=== PATIENT | male | born 1955 | race Caucasian/White ===

== ENCOUNTER 2016-10-17 22:08 | Emergency (ER) | payer MEDICARE, MEDICAID ==
[~2016-10-17] VITALS: Ht 180.3 cm; Wt 76.8 kg
[~2016-10-17 22:08] MED LIST: ACHD5005 PO; ALBU8.5H2 IH; CIPR-225 PO; CYCL10TA9 PO; DICL75TA2; DICL75TA2 PO; DIVA500T7 PO; GABA-488; GABA-488 PO; GBPN300C PO; HYDR-700; HYDR-757 PO; IBP800T PO; METH4TAB PO; METO-270 PO; METO25TA PO; NAPR500T PO; NITR-65 PO; PRD10T PO; PRD20T PO; RT-ALBUINH; TRAM-21 PO; TRAM-42 PO; TRAM50TA2 PO; TRAZ100T92 PO; TRIH2TAB2 PO; TRZ100T PO; TRZ50T PO; antidepressant; blood pressure med
[2016-10-18] MEDS ORDERED: TRAM-42 PO (00:43)
--- NOTE | 2016-10-18 00:44 | ED Back Pain ---
General Chief Complaint: Back Problems Stated Complaint: BACK PAIN Nursing Triage Note: Patient here with c/o back pain, chronic hx of herniated L1-2-3. Pt has no PCP Nursing Sepsis Screen: No Definite Risk Source of Information: Patient, Old Records Exam Limitations: No Limitations History of Present Illness Time Seen by Provider: 00:29 Initial Comments This 61-year-old man presents to the emergency room with complaints of exacerbation of chronic upper back pain. He reports he has no primary care provider to address his pain. However, his prescription filling record suggests otherwise. He then states he went to [facility], his primary clinic, but the urgent care clinic there refused to see him. He denies any recent injury related to his exacerbation of pain. Allergies and Home Medications Allergies Coded Allergies: Sulfa (Sulfonamide Antibiotics) (Verified Allergy, Unknown, 11/14/15) PT STATES "I JUST CAN'T HAVE IT" Home Medications Tramadol HCl 50 Mg Tablet #10 50 MG PO Q6H PRN PRN PAIN Prescribed by: REJI CANTRELL on 10/18/16 0043 Constitutional: no symptoms reported EENTM: no symptoms reported Respiratory: no symptoms reported Cardiovascular: no symptoms reported Gastrointestinal: no symptoms reported Genitourinary: no symptoms reported Musculoskeletal: see HPI Skin: no symptoms reported Psychiatric/Neurological: No Symptoms Reported Past Abnovsx-Xthgcc-Bkaeer Hx Patient Social History Alcohol Use: Denies Use Recreational Drug Use: No Smoking Status: Current Everyday Smoker Type Used: Cigarettes Former Smoker/When Quit: Recent Foreign Travel: No Contact w/Someone Who Travel: No Recent Infectious Disease Expo: No Recent Hopitalizations: No Immunizations Up To Date Tetanus Booster (TDap): Unknown Date of Pneumonia Vaccine: Nov 16, 2012 Date of Influenza Vaccine: Oct 14, 2016 Seasonal Allergies Seasonal Allergies: No Surgeries HX Surgeries: Yes Surgeries: Appendectomy Respiratory Hx Respiratory Disorders: Yes (COPD) Respiratory Disorders: COPD Cardiovascular Hx Cardiac Disorders: Yes Cardiac Disorders: Hypertension Neurological Hx Neurological Disorders: No Reproductive System Hx Reproductive Disorders: No Genitourinary Hx Genitourinary Disorders: No Gastrointestinal Hx Gastrointestinal Disorders: Yes (HEP C) Gastrointestinal Disorders: Hepatitis Musculoskeletal Hx Musculoskeletal Disorders: Yes Musculoskeletal Disorders: Arthritis, Chronic Back Pain Endocrine Hx Endocrine Disorders: No HEENT HX ENT Disorders: No Cancer Hx Cancer: No Psychosocial Hx Psychiatric Problems: No Integumentary HX Skin/Integumentary Disorder: No Blood Transfusions Hx Blood Disorders: No Adverse Reaction to a Blood Tr: No Family Medical History Family Medial History: Patient reports no known family medical history. 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 Depo- Medrol 40 mg was administered. This apparently has been successful for him in the past. Departure Impression Impression: Primary Impression: Exacerbation of chronic back pain Disposition: 01 HOME, SELF-CARE Condition: Improved Departure-Patient Inst. Decision time for Depature: 00:41 Referrals: NO,LOCAL PHYSICIAN (PCP/Family) Primary Care Physician Patient Instructions: Upper Back Pain (DC) Add. Discharge Instructions: Continue using diclofenac as previously prescribed. Use Ultram for pain unrelieved by diclofenac. Follow-up with your primary care provider soon as possible. Please do not return to the emergency room for treatment of your chronic pain. This needs to be managed by your primary care provider. All discharge instructions reviewed with patient and/or family. Voiced understanding. Scripts Tramadol HCl (Ultram)50 Mg Obneho32 Mg PO Q6H PRN PAIN #10 TAB Prov:REJI BOND MD 10/18/16 REJI BOND MD Oct 18, 2016 00:43
[2016-10-18] MEDS ORDERED: methylPREDNISolone 40 MG/ML (DEPO MEDROL) VIAL IM ONE (00:45)
[2016-10-18 00:48] VITALS: BP 134/64
== END 2016-10-18 00:49 | disposition home or self-care (01) ==
LOC: EDUNIT# 22:08 → ER 22:09
DX: M54.5 Low back pain (principal); G89.29 Other chronic pain; I10 Essential (primary) hypertension; J44.9 Chronic obstructive pulmonary disease, unspecified; F17.210 Nicotine dependence, cigarettes, uncomplicated
CPT/HCPCS: 96372; 99281

== ENCOUNTER 2017-06-19 11:12 | Emergency (ER) | payer MEDICARE, MEDICAID ==
[~2017-06-19] VITALS: Ht 172.7 cm; Wt 68.0 kg
[~2017-06-19 11:12] MED LIST changes: +CEPH500T PO
--- NOTE | 2017-06-19 11:54 | ED General ---
General Stated Complaint: LT RIB PAIN Source of Information: Patient Exam Limitations: No Limitations History of Present Illness Time Seen by Provider: 11:52 Initial Comments To ER with reports of left upper abdominal pain. It is unclear how long this has been going on as the patient is a terrible historian. He denies nausea vomiting or diarrhea. He reports that he would like a blanket currently and is found to have a temperature of 100 here. He is homeless. Timing/Duration: Other (uncertain) Severity: Moderate Associated Systoms: Fever/Chills Allergies and Home Medications Allergies Coded Allergies: Sulfa (Sulfonamide Antibiotics) (Verified Allergy, Unknown, 11/14/15) PT STATES "I JUST CAN'T HAVE IT" Constitutional: see HPI EENTM: see HPI Respiratory: no symptoms reported Cardiovascular: no symptoms reported Gastrointestinal: abdominal pain Genitourinary: no symptoms reported Musculoskeletal: no symptoms reported Skin: no symptoms reported Psychiatric/Neurological: No Symptoms Reported Past Xrdxnur-Tsgmbn-Mrpnvf Hx Patient Social History Type Used: Cigarettes Former Smoker, Quit: Feb 25, 2017 Recent Foreign Travel: No Contact w/Someone Who Travel: No Recent Hopitalizations: No Immunizations Up To Date Tetanus Booster (TDap): Unknown Date of Pneumonia Vaccine: Nov 16, 2012 Date of Influenza Vaccine: Oct 14, 2016 Seasonal Allergies Seasonal Allergies: No Surgeries History of Surgeries: Yes Surgeries: Appendectomy Respiratory History of Respiratory Disorde: Yes Respiratory Disorders: COPD Currently Using CPAP: No Currently Using BIPAP: No Cardiovascular History of Cardiac Disorders: No Cardiac Disorders: Hypertension Neurological History of Neurological Disord: No Reproductive System Hx Reproductive Disorders: No Genitourinary History of Genitourinary Disor: No (current uti) Gastrointestinal History of Gastrointestinal Di: No Gastrointestinal Disorders: Hepatitis Musculoskeletal History of Musculoskeletal Dis: No Musculoskeletal Disorders: Arthritis, Chronic Back Pain Endocrine History of Endocrine Disorders: No HEENT History of HEENT Disorders: No Cancer History of Cancer: No Psychosocial History of Psychiatric Problem: No Integumentary History of Skin or Integumenta: Yes (ulcer present to lle) Blood Transfusions History of Blood Disorders: No Adverse Reaction to a Blood Tr: No Family Medical History Family Medial History: Patient reports no known family medical history. Physical Exam Vital Signs Vital Sign - Last 12Hours 06/19/17 11:38 Temp 100.0 Pulse 150 B/P (MAP) 136/116 Capillary Refill : General Appearance: No Apparent Distress, WD/WN, Thin Eyes: Bilateral Eye Normal Inspection, Bilateral Eye PERRL, Bilateral Eye EOMI HEENT: PERRL/EOMI, TMs Normal Neck: Full Range of Motion, Normal Inspection Respiratory: No Accessory Muscle Use, No Respiratory Distress Cardiovascular: Regular Rate, Rhythm, Normal Peripheral Pulses Gastrointestinal: Non Tender, Soft Extremity: Normal Capillary Refill, No Calf Tenderness Neurologic/Psychiatric: Alert, Oriented x3, No Motor/Sensory Deficits Skin: Normal Color, Warm/Dry Focused Exam Evaluation Lactate Level Laboratory Tests 06/19/17 12:18: Lactic Acid Level 2.41*H Lactic Acid Level Laboratory Tests Test 06/19/17 12:18 Lactic Acid Level 2.41 MMOL/L (0.50-2.00) *H Progress/Results/Core Measures Results/Orders Lab Results Laboratory Tests Test 06/19/17 11:46 06/19/17 12:18 06/19/17 13:30 Range/Units White Blood Count 7.7 4.3-11.0 10^3/uL Red Blood Count 4.31 L 4.35-5.85 10^6/uL Hemoglobin 13.1 L 13.3-17.7 G/DL Hematocrit 44 40-54 % Mean Corpuscular Volume 89 80-99 FL Mean Corpuscular Hemoglobin 30 25-34 PG Mean Corpuscular Hemoglobin Concent 34 32-36 G/DL Red Cell Distribution Width 13.9 10.0-14.5 % Platelet Count 213 130-400 10^3/uL Mean Platelet Volume 10.3 7.4-10.4 FL Neutrophils (%) (Auto) 90 H 42-75 % Lymphocytes (%) (Auto) 7 L 12-44 % Monocytes (%) (Auto) 3 0-12 % Eosinophils (%) (Auto) 0 0-10 % Basophils (%) (Auto) 0 0-10 % Neutrophils # (Auto) 11.9 H 1.8-7.8 X 10^3 Lymphocytes # (Auto) 0.9 L 1.0-4.0 X 10^3 Monocytes # (Auto) 0.3 0.0-1.0 X 10^3 Eosinophils # (Auto) 0.0 0.0-0.3 10^3/uL Basophils # (Auto) 0.0 0.0-0.1 10^3/uL Neutrophils % (Manual) 83 % Lymphocytes % (Manual) 11 % Monocytes % (Manual) 4 % Eosinophils % (Manual) 0 % Basophils % (Manual) 0 % Band Neutrophils 2 % Blood Morphology Comment NORMAL Erythrocyte Sedimentation Rate 71 H 0-30 MM/HR Sodium Level 124 *L 135-145 MMOL/L Potassium Level 3.9 3.6-5.0 MMOL/L Chloride Level 93 L 98-107 MMOL/L Carbon Dioxide Level 17 L 21-32 MMOL/L Anion Gap 14 5-14 MMOL/L Blood Urea Nitrogen 26 H 7-18 MG/DL Creatinine 1.50 H 0.60-1.30 MG/DL Estimat Glomerular Filtration Rate 48 BUN/Creatinine Ratio 17 Glucose Level 99 70-105 MG/DL Lactic Acid Level 2.41 *H 0.50-2.00 MMOL/L Calcium Level 9.2 8.5-10.1 MG/DL Total Bilirubin 1.4 H 0.1-1.0 MG/DL Aspartate Amino Transf (AST/SGOT) 18 5-34 U/L Alanine Aminotransferase (ALT/SGPT) 18 0-55 U/L Alkaline Phosphatase 76 40-136 U/L Total Protein 7.7 6.4-8.2 GM/DL Albumin 3.2 3.2-4.5 GM/DL Serum Alcohol < 10 <10 MG/DL Urine Color YELLOW Urine Clarity SLIGHTLY CLOUDY Urine pH 6 5-9 Urine Specific Ralph 1.015 L 1.016-1.022 Urine Protein 3+ H NEGATIVE Urine Glucose (UA) NEGATIVE NEGATIVE Urine Ketones 2+ H NEGATIVE Urine Nitrite POSITIVE H NEGATIVE Urine Bilirubin NEGATIVE NEGATIVE Urine Urobilinogen 4 H NORMAL MG/DL Urine Leukocyte Esterase 3+ H NEGATIVE Urine RBC (Auto) 5+ H NEGATIVE Urine RBC 5-10 H /HPF Urine WBC 25-50 H /HPF Urine Squamous Epithelial Cells 2-5 /HPF Urine Crystals NONE /LPF Urine Amorphous Sediment MOD VEENA URATES H /LPF Urine Bacteria LARGE H /HPF Urine Casts PRESENT /LPF Urine Granular Casts 2-5 H /LPF Urine Mucus NEGATIVE /LPF Urine Culture Indicated YES Urine Opiates Screen NEGATIVE NEGATIVE Urine Oxycodone Screen NEGATIVE NEGATIVE Urine Methadone Screen NEGATIVE NEGATIVE Urine Propoxyphene Screen NEGATIVE NEGATIVE Urine Barbiturates Screen NEGATIVE NEGATIVE Ur Tricyclic Antidepressants Screen NEGATIVE NEGATIVE Urine Phencyclidine Screen NEGATIVE NEGATIVE Urine Amphetamines Screen POSITIVE H NEGATIVE Urine Methamphetamines Screen POSITIVE H NEGATIVE Urine Benzodiazepines Screen NEGATIVE NEGATIVE Urine Cocaine Screen NEGATIVE NEGATIVE Urine Cannabinoids Screen NEGATIVE NEGATIVE My Orders Orders - ILEANA OSBORNE APRN Cbc With Automated Diff (06/19/17 11:49) Erythrocyte Sedimentation Rate (06/19/17 11:49) Saline Lock/Iv-Start (06/19/17 11:49) Ua Culture If Indicated (06/19/17 11:49) Drug Screen Stat (Urine) (06/19/17 11:49) Blood Culture (06/19/17 11:49) Lactic Acid Analyzer (06/19/17 11:49) Lactated Ringers (Lr 1000 Ml Iv Solution (06/19/17 12:00) Lorazepam Injection (Ativan Injection) (06/19/17 12:00) Acetaminophen Tablet (Tylenol Tablet) (06/19/17 12:00) Ibuprofen Tablet (Motrin Tablet) (06/19/17 12:00) Chest Pa/Lat (2 View) (06/19/17 11:50) Manual Differential (06/19/17 11:46) Alcohol (06/19/17 12:19) Comprehensive Metabolic Panel (06/19/17 12:19) Ct Abdomen/Pelvis Wo (06/19/17 12:27) Ns Iv 1000 Ml (Sodium Chloride 0.9%) (06/19/17 13:15) Ceftriaxone Injection (Rocephin Injectio (06/19/17 13:15) Abdomen/Kub 1view (06/19/17 13:23) Urine Culture (06/19/17 13:30) Normal Saline Bolus 1,000ml (06/19/17 14:30) Medications Given in ED Current Medications Medications Dose Ordered Sig/Mery Route Start Time Stop Time Status Last Admin Dose Admin Acetaminophen 1,000 mg ONCE ONCE PO 06/19/17 12:00 06/19/17 12:01 DC 06/19/17 12:08 1,000 MG Ceftriaxone Sodium 1000 mg/ Sodium Chloride 50 ml @ 100 mls/hr ONCE ONCE IV 06/19/17 13:15 06/19/17 13:44 DC 06/19/17 13:20 100 MLS/HR Ibuprofen 800 mg ONCE ONCE PO 06/19/17 12:00 06/19/17 12:01 DC 06/19/17 12:08 800 MG Lorazepam 0.5 mg ONCE ONCE IVP 06/19/17 12:00 06/19/17 12:01 DC 06/19/17 12:09 0.5 MG Vital Signs/I&O Vital Sign - Last 12Hours 06/19/17 11:38 Temp 100.0 Pulse 150 B/P (MAP) 136/116 Intake and Output 06/20/17 00:00 Intake Total 1250 ml Balance 1250 ml Departure Communication (Admissions) Progress Notes 1237-patient has refused to take one of his Tylenol and Motrin for the fever because "they're bitter". Patient then ripped out his IV so that he could walk to the bathroom and left a trail of blood down the hallway and all over himself. Laying in bed states that he is feeling better now 1303-in regards to the metallic density within the GI tract on CT, the patient reports that he was sucking on some pennies last week and accidentally swallowed them. 1409-Discussed wit Dr morrison. He states that since sepsis is likely secondary to uti with stone, the stone will need intervened on urgently and he would like this patient transferred... 1426-I discussed the case with [place] hospitalist Dr. Carl who accepted the patient. I also discussed the case with urology Dr. Ledesma who agrees to consult. Impression Impression: Primary Impression: Left ureteral stone Additional Impressions: Sepsis Acute renal failure Hyponatremia Disposition: [facility] Condition: Stable Admissions Decision to Admit/Date: Jun 19, 2017 Time/Decision to Admit Time: 13:04 Departure-Patient Inst. Decision time for Depature: 14:10 Referrals: NO,LOCAL PHYSICIAN (PCP/Family) Primary Care Physician ILEANA OSBORNE APRN Jun 19, 2017 11:54
[2017-06-19 11:56] LABS: BASOPHILS % (AUTO) 0 % (0-10); EOSINOPHILS % (AUTO) 0 % (0-10); LYMPHOCYTES # (AUTO) 0.9 X 10^3 (1.0-4.0); LYMPHOCYTES % (AUTO) 7 % (12-44); MEAN CORPUSCULAR HGB CONC 34 G/DL (32-36); MEAN CORPUSCULAR VOLUME 89 FL (80-99); MEAN PLATELET VOLUME 10.3 FL (7.4-10.4); MONOCYTES # (AUTO) 0.3 X 10^3 (0.0-1.0); MONOCYTES % (AUTO) 3 % (0-12); NEUTROPHILS # (AUTO) 11.9 X 10^3 (1.8-7.8); NEUTROPHILS % (AUTO) 90 % (42-75); RED CELL DISTRIBUTION WIDTH 13.9 % (10.0-14.5)
[2017-06-19] MEDS ORDERED: LORazepam INJ 2 MG/ML (ATIVAN) VIAL IVP ONE (12:00)
[2017-06-19] MEDS ORDERED: ACETAMINOPHEN 500 MG TAB (TYLENOL) PO ONE (12:00)
[2017-06-19] MEDS ORDERED: LACTATED RINGERS 1,000 ML IV SCH (12:00)
[2017-06-19] MEDS ORDERED: IBUPROFEN 800 MG (MOTRIN) TAB PO ONE (12:00)
[2017-06-19 12:30] LABS: BAND NEUTROPHILS 2 %; NEUTROPHILS % (MANUAL) 83 %
[2017-06-19 12:31] LABS: BASOPHILS % (MANUAL) 0 %; EOSINOPHILS % (MANUAL) 0 %; LYMPHOCYTES % (MANUAL) 11 %
[2017-06-19 12:35] LABS: RED BLOOD COUNT 4.31 10^6/uL (4.35-5.85); WHITE BLOOD COUNT 7.7 10^3/uL (4.3-11.0)
[2017-06-19 12:36] LABS: MEAN CORPUSCULAR HEMOGLOBIN 30 PG (25-34); PLATELET COUNT 213 10^3/uL (130-400)
[2017-06-19 12:47] LABS: ALANINE AMINOTRANSFERASE 18 U/L (0-55); ALBUMIN 3.2 GM/DL (3.2-4.5); ALCOHOL < 10 MG/DL (<10); ANION GAP 14 MMOL/L (5-14); ASPARTATE AMINO TRANSFERASE 18 U/L (5-34); BILIRUBIN,TOTAL 1.4 MG/DL (0.1-1.0); BLOOD UREA NITROGEN 26 MG/DL (7-18); BUN/CREATININE RATIO 17; CALCIUM 9.2 MG/DL (8.5-10.1); CARBON DIOXIDE 17 MMOL/L (21-32); CHLORIDE 93 MMOL/L (98-107); GFR ESTIMATED 48; GLUCOSE 99 MG/DL (70-105); POTASSIUM 3.9 MMOL/L (3.6-5.0); TOTAL PROTEIN 7.7 GM/DL (6.4-8.2)
[2017-06-19 12:50] LABS: SODIUM 124 MMOL/L (135-145)
[2017-06-19 12:56] LABS: ERYTHROCYTE SEDIMENTATION RATE 71 MM/HR (0-30)
--- NOTE | 2017-06-19 13:12 | Diagnostic Imaging Report ---
PA and lateral views of the chest Indication: Fever . Abdominal pain. The patient swallowed a couple of pennies last week. Findings: The lungs are clear. The heart size is normal. There is no effusion or pneumothorax The mediastinum and moise appear unremarkable. Impression: Unremarkable study. Dictated by: Dictated on workstation # [id number]
[2017-06-19] MEDS ORDERED: NS IV 1000 ML 1,000 ML IV SCH ×2 (13:15→14:30)
[2017-06-19] MEDS ORDERED: cefTRIAXone INJECTION 1,000 MG in NS (IVPB) 50 ML IV ONE (13:15)
--- NOTE | 2017-06-19 13:22 | Diagnostic Imaging Report ---
PROCEDURE: CT abdomen and pelvis without contrast. TECHNIQUE: Multiple contiguous axial images were obtained through the abdomen and pelvis without the use of intravenous contrast. INDICATION: Fever. Abdominal pain. Patient swallowed a couple of pennies last week. FINDINGS: The lung bases appear clear. The liver demonstrates a fluid attenuation lesion measuring 3.6 cm in size, suggestive of a simple cyst. The gallbladder demonstrates no calcified stone. There is no splenomegaly. The pancreas and adrenal glands appear unremarkable. The left kidney is enlarged with moderate hydroureteronephrosis seen. This relates to an obstructive stone measuring 8 mm in the distal left ureter approximately 6 cm from the bladder. The urinary bladder wall is mildly thickened. Correlate for possible underlying cystitis. A 3 mm nonobstructive stone in the lower pole of the right kidney is seen. There is no bowel obstruction. In the right side of the abdomen projecting near the proximal aspect of the third portion of the duodenum, there is evidence of metallic foreign bodies, probably representing the two coins mentioned in the history, of about 2 cm in diameter. No evidence of bowel obstruction. Diverticulosis involving mostly the left colon and particularly numerous in the sigmoid colon is seen with no evidence of diverticulitis. No free air or significant free fluid in the abdomen or pelvis. The osseous structures demonstrate degenerative changes in the lower lumbar spine and SI joints. IMPRESSION: 1. Moderate hydroureteronephrosis on the left from a distal 8 mm ureteric stone about 6 cm from the urinary bladder. 2. Two metallic foreign bodies, compatible with swallowed coins, appear to be within the proximal aspect of the third portion of the duodenum. No bowel obstruction. 3. Nonobstructive 3 mm stone in the upper pole of the right kidney. 4. Diverticulosis. No diverticulitis. 5. The findings were discussed with Mr. Trell Yu, the ER physician assistant production editor taking care of the patient, by Dr. Noonan at the time of dictation. Dictated by: Dictated on workstation # [id number]
[2017-06-19 13:38] LABS: BILIRUBIN,URINE NEGATIVE (NEGATIVE); KETONES,URINE 2+ (NEGATIVE); LEUKOCYTE ESTERASE ,URINE 3+ (NEGATIVE); NITRITE,URINE POSITIVE (NEGATIVE); PH,URINE 6 (5-9); PROTEIN,URINE 3+ (NEGATIVE); UROBILINOGEN,URINE 4 MG/DL (NORMAL)
[2017-06-19 13:56] LABS: WBC,URINE 25-50 /HPF
[2017-06-19 14:00] VITALS: BP 135/95
--- NOTE | 2017-06-19 14:26 | Diagnostic Imaging Report ---
Supine view of the abdomen. INDICATION: Left-sided abdominal pain. FINDINGS: There are two coins adjacent to each other seen projecting over the mid abdomen. There is poor visualization of the distal left ureteric stone identified on exam performed one hour prior to this exam. This could potentially relate to overlap with the distal aspect of the left SI joint. A 4-mm calcification projecting over the right kidney is suggestive of non obstructive stone confirmed on CT. IMPRESSION: 1. The two ingested coins are projecting in the mid abdomen probably within the third portion of the duodenum based on correlating CT scan. 2. The 8-mm stone in the distal left ureter is not well visualized, possibly due to overlap of its position with the lower aspect of the left SI joint. Dictated by: Dictated on workstation # [id number]
[2017-06-19 15:21] VITALS: BP 115/72
== END 2017-06-19 15:22 | disposition short-term general hospital (02) ==
LOC: EDUNIT# 11:12 → ER 11:15
DX: A41.9 Sepsis, unspecified organism (principal); N20.1 Calculus of ureter; N17.9 Acute kidney failure, unspecified; E87.1 Hypo-osmolality and hyponatremia; J44.9 Chronic obstructive pulmonary disease, unspecified; I10 Essential (primary) hypertension; Z87.891 Personal history of nicotine dependence
CPT/HCPCS: 36415; 71020; 74000; 74176; 80053; 80306; 80320; 81000; 83605; 85007; 85027; 85652; 87040; 87077; 87088; 87186; 96361; 96374

== ENCOUNTER 2017-10-18 16:31 | Emergency (ER) | payer MEDICARE, MEDICAID ==
[~2017-10-18] VITALS: Ht 180.3 cm; Wt 81.6 kg
[~2017-10-18 16:31] MED LIST changes: -METO-270 PO; +METO-387 PO; +NAPR-1071 PO; -NAPR500T PO
[2017-10-18 16:50] VITALS: BP 80/64
[2017-10-18] MEDS ORDERED: NS IV 1000 ML 1,000 ML IV SCH ×2 (17:45→18:30)
[2017-10-18] MEDS ORDERED: ACETAMINOPHEN 500 MG TAB (TYLENOL) PO ONE (17:45)
[2017-10-18] MEDS ORDERED: IBUPROFEN 800 MG (MOTRIN) TAB PO ONE (17:45)
[2017-10-18 17:53] LABS: BASOPHILS % (AUTO) 0 % (0-10); EOSINOPHILS % (AUTO) 0 % (0-10); HEMATOCRIT 42 % (40-54); HEMOGLOBIN 14.2 G/DL (13.3-17.7); LYMPHOCYTES # (AUTO) 0.9 X 10^3 (1.0-4.0); LYMPHOCYTES % (AUTO) 12 % (12-44); MEAN CORPUSCULAR HEMOGLOBIN 31 PG (25-34); MEAN CORPUSCULAR HGB CONC 34 G/DL (32-36); MEAN CORPUSCULAR VOLUME 92 FL (80-99); MEAN PLATELET VOLUME 9.6 FL (7.4-10.4); MONOCYTES # (AUTO) 1.1 X 10^3 (0.0-1.0); MONOCYTES % (AUTO) 15 % (0-12); NEUTROPHILS # (AUTO) 5.4 X 10^3 (1.8-7.8); NEUTROPHILS % (AUTO) 73 % (42-75); PLATELET COUNT 263 10^3/uL (130-400); RED BLOOD COUNT 4.55 10^6/uL (4.35-5.85); RED CELL DISTRIBUTION WIDTH 12.8 % (10.0-14.5); WHITE BLOOD COUNT 7.4 10^3/uL (4.3-11.0)
--- NOTE | 2017-10-18 18:01 | Diagnostic Imaging Report ---
PROCEDURE: CT abdomen and pelvis without contrast. TECHNIQUE: Multiple contiguous axial images were obtained through the abdomen and pelvis without the use of intravenous contrast. INDICATION: Body ache and congestion Lung bases are clear. There is 3.4 cm cyst in the liver. The gallbladder is present. Pancreas appears normal. Spleen is not enlarged. Adrenals are normal. Left kidney is normal. There is a 3 mm calculus in the lower pole of the right kidney. There is no hydronephrosis seen in either kidney. There is aortic atherosclerosis but no aneurysm. Small bowel is not dilated. There is large amount of stool throughout the colon. There is no intraperitoneal free air or free fluid. Urinary bladder and prostate are unremarkable. IMPRESSION: Uncomplicated diverticulosis of the colon. There is fecal stasis. Right nephrolithiasis. Hepatic cysts. No acute abnormality seen. Dictated by: Dictated on workstation # [id number]
--- NOTE | 2017-10-18 18:02 | Diagnostic Imaging Report ---
INDICATION: Lower respiratory infection. PA and lateral chest. FINDINGS: Heart size and pulmonary vascularity are normal. Lungs are clear. There are no effusions or pneumothoraces. IMPRESSION: Negative chest. Dictated by: Dictated on workstation # [id number]
--- NOTE | 2017-10-18 18:08 | ED Cough/URI ---
General Chief Complaint: Cough/Cold/Flu Symptoms Stated Complaint: SOA,FEVER,CHILLS Nursing Triage Note: Pt here by [facility]. pt c/o body aches and congestion x2 days. Source: patient Exam Limitations: no limitations History of Present Illness Date Seen by Provider: Oct 18, 2017 Time Seen by Provider: 18:02 Allergies and Home Medications Allergies Coded Allergies: Sulfa (Sulfonamide Antibiotics) (Verified Allergy, Unknown, 11/14/15) PT STATES "I JUST CAN'T HAVE IT" Constitutional: see HPI, chills, weakness EENTM: see HPI Respiratory: see HPI, cough Cardiovascular: no symptoms reported Genitourinary: no symptoms reported Musculoskeletal: no symptoms reported Skin: no symptoms reported Psychiatric/Neurological: No Symptoms Reported Hematologic/Lymphatic: No Symptoms Reported Past Cdjeiql-Qhiedc-Qicwmp Hx Patient Social History Alcohol Use: Denies Use Recreational Drug Use: No Type Used: Cigarettes Former Smoker, Quit: Feb 25, 2017 Recent Foreign Travel: No Contact w/Someone Who Travel: No Recent Infectious Disease Expo: No Recent Hopitalizations: No Immunizations Up To Date Tetanus Booster (TDap): Unknown Date of Pneumonia Vaccine: Nov 16, 2012 Date of Influenza Vaccine: Oct 14, 2016 Seasonal Allergies Seasonal Allergies: No Surgeries History of Surgeries: Yes Surgeries: Appendectomy Respiratory History of Respiratory Disorde: Yes Respiratory Disorders: COPD Currently Using CPAP: No Currently Using BIPAP: No Cardiovascular History of Cardiac Disorders: No Cardiac Disorders: Hypertension Neurological History of Neurological Disord: No Reproductive System Hx Reproductive Disorders: No Genitourinary History of Genitourinary Disor: No (current uti) Gastrointestinal History of Gastrointestinal Di: No Gastrointestinal Disorders: Hepatitis Musculoskeletal History of Musculoskeletal Dis: No Musculoskeletal Disorders: Arthritis, Chronic Back Pain Endocrine History of Endocrine Disorders: No HEENT History of HEENT Disorders: No Cancer History of Cancer: No Psychosocial History of Psychiatric Problem: No Integumentary History of Skin or Integumenta: Yes (ulcer present to lle) Blood Transfusions History of Blood Disorders: No Adverse Reaction to a Blood Tr: No Family Medical History Family Medial History: Patient reports no known family medical history. Physical Exam Vital Signs Vital Sign - Last 12Hours 10/18/17 16:50 Temp 102.0 Pulse 113 Resp 20 B/P (MAP) 80/64 (69) Pulse Ox 94 O2 Delivery Room Air Capillary Refill : Less Than 3 Seconds General Appearance: WD/WN, no apparent distress Eyes: Bilateral Eye Normal Inspection, Bilateral Eye PERRL, Bilateral Eye EOMI HEENT: PERRL/EOMI, normal ENT inspection, TMs normal Neck: non-tender, full range of motion Respiratory: normal breath sounds, no respiratory distress, no accessory muscle use Cardiovascular: regular rate, rhythm, no murmur Gastrointestinal: normal bowel sounds, non tender, soft Neurologic/Psychiatric: alert, normal mood/affect, oriented x 3 Skin: normal color, warm/dry Focused Exam Evaluation Lactate Level Laboratory Tests 10/18/17 17:40: Lactic Acid Level 0.82 Lactic Acid Level Laboratory Tests Test 10/18/17 17:40 Lactic Acid Level 0.82 MMOL/L (0.50-2.00) Progress/Results/Core Measures Suspected Sepsis Recent Fever Within 48 Hours: Yes Infection Criteria Present: Suspected New Infection New/Unexplained Altered Menta: No Sepsis Screen: Possible Severe Sepsis Risk Sepsis Diagnosis: SIRS Temperature:102.0 Pulse: 113 Respiratory Rate: 20 Laboratory Tests 10/18/17 17:40: White Blood Count 7.4 Blood Pressure 80 /64 Mean: 69 Laboratory Tests 10/18/17 17:40: Lactic Acid Level 0.82 Laboratory Tests 10/18/17 17:40: Creatinine 0.93, Platelet Count 263, Total Bilirubin 0.6 Results/Orders Lab Results Laboratory Tests Test 10/18/17 17:40 Range/Units White Blood Count 7.4 4.3-11.0 10^3/uL Red Blood Count 4.55 4.35-5.85 10^6/uL Hemoglobin 14.2 13.3-17.7 G/DL Hematocrit 42 40-54 % Mean Corpuscular Volume 92 80-99 FL Mean Corpuscular Hemoglobin 31 25-34 PG Mean Corpuscular Hemoglobin Concent 34 32-36 G/DL Red Cell Distribution Width 12.8 10.0-14.5 % Platelet Count 263 130-400 10^3/uL Mean Platelet Volume 9.6 7.4-10.4 FL Neutrophils (%) (Auto) 73 42-75 % Lymphocytes (%) (Auto) 12 12-44 % Monocytes (%) (Auto) 15 H 0-12 % Eosinophils (%) (Auto) 0 0-10 % Basophils (%) (Auto) 0 0-10 % Neutrophils # (Auto) 5.4 1.8-7.8 X 10^3 Lymphocytes # (Auto) 0.9 L 1.0-4.0 X 10^3 Monocytes # (Auto) 1.1 H 0.0-1.0 X 10^3 Eosinophils # (Auto) 0.0 0.0-0.3 10^3/uL Basophils # (Auto) 0.0 0.0-0.1 10^3/uL Sodium Level 133 L 135-145 MMOL/L Potassium Level 4.5 3.6-5.0 MMOL/L Chloride Level 99 98-107 MMOL/L Carbon Dioxide Level 20 L 21-32 MMOL/L Anion Gap 14 5-14 MMOL/L Blood Urea Nitrogen 19 H 7-18 MG/DL Creatinine 0.93 0.60-1.30 MG/DL Estimat Glomerular Filtration Rate > 60 BUN/Creatinine Ratio 20 Glucose Level 94 70-105 MG/DL Lactic Acid Level 0.82 0.50-2.00 MMOL/L Calcium Level 8.7 8.5-10.1 MG/DL Total Bilirubin 0.6 0.1-1.0 MG/DL Aspartate Amino Transf (AST/SGOT) 32 5-34 U/L Alanine Aminotransferase (ALT/SGPT) 28 0-55 U/L Alkaline Phosphatase 63 40-136 U/L Total Protein 7.7 6.4-8.2 GM/DL Albumin 3.7 3.2-4.5 GM/DL Micro Results Microbiology 10/18/17 Influenza Types A,B Antigen (JERILYN) - Final, Complete My Orders Orders - ILEANA OSBORNE CONCRETE PANEL INSTALLER Cbc With Automated Diff (10/18/17 17:23) Comprehensive Metabolic Panel (10/18/17 17:23) Blood Culture (10/18/17 17:23) Lactic Acid Analyzer (10/18/17 17:23) Ua Culture If Indicated (10/18/17 17:23) Ct Abdomen/Pelvis Wo (10/18/17 17:23) Chest Pa/Lat (2 View) (10/18/17 17:23) Saline Lock/Iv-Start (10/18/17 17:23) Ns Iv 1000 Ml (Sodium Chloride 0.9%) (10/18/17 17:45) Acetaminophen Tablet (Tylenol Tablet) (10/18/17 17:45) Ibuprofen Tablet (Motrin Tablet) (10/18/17 17:45) Ns Iv 1000 Ml (Sodium Chloride 0.9%) (10/18/17 18:30) Influenza A And B Antigens (10/18/17 19:19) Medications Given in ED Current Medications Medications Dose Ordered Sig/Mery Route Start Time Stop Time Status Last Admin Dose Admin Acetaminophen 1,000 mg ONCE ONCE PO 10/18/17 17:45 10/18/17 17:46 DC 10/18/17 18:06 1,000 MG Ibuprofen 800 mg ONCE ONCE PO 10/18/17 17:45 10/18/17 17:46 DC 10/18/17 18:06 800 MG Vital Signs/I&O Vital Sign - Last 12Hours 10/18/17 10/18/17 10/18/17 16:50 18:06 18:06 Temp 102.0 102.0 102.0 Pulse 113 Resp 20 B/P (MAP) 80/64 (69) Pulse Ox 94 O2 Delivery Room Air Capillary Refill : Less Than 3 Seconds Blood Pressure Mean: 69 Departure Communication (Admissions) Progress Notes 2109-vital signs of them consistently 110-120 systolic with heart rate of 70- 90. Symptoms likely result of flulike illness. He refuses to provide a urine sample and states "if you're gonna use a catheter I will just leave". He's had 3 L of IV fluids. Impression Impression: Primary Impression: Flu-like symptoms Disposition: AGAINST MEDICAL ADVICE Condition: Against Medical Advice Departure-Patient Inst. Decision time for Depature: 21:10 Referrals: NO,LOCAL PHYSICIAN (PCP/Family) Primary Care Physician Patient Instructions: Flu, Adult (DC) ILEANA OSBORNE APRN Oct 18, 2017 18:08
[2017-10-18 18:10] LABS: CARBON DIOXIDE 20 MMOL/L (21-32); CHLORIDE 99 MMOL/L (98-107); POTASSIUM 4.5 MMOL/L (3.6-5.0); SODIUM 133 MMOL/L (135-145)
[2017-10-18 18:11] LABS: ALANINE AMINOTRANSFERASE 28 U/L (0-55); ALBUMIN 3.7 GM/DL (3.2-4.5); ALKALINE PHOSPHATASE 63 U/L (40-136); BILIRUBIN,TOTAL 0.6 MG/DL (0.1-1.0); BUN/CREATININE RATIO 20; CALCIUM 8.7 MG/DL (8.5-10.1); CREATININE SERUM 0.93 MG/DL (0.60-1.30); GFR ESTIMATED > 60; GLUCOSE 94 MG/DL (70-105); TOTAL PROTEIN 7.7 GM/DL (6.4-8.2)
== END 2017-10-18 21:16 | disposition left against medical advice (07) ==
LOC: EDUNIT# 16:31 → ER 16:33
DX: J11.1 Influenza due to unidentified influenza virus with other respiratory manifestations (principal); J44.9 Chronic obstructive pulmonary disease, unspecified; I10 Essential (primary) hypertension; Z87.19 Personal history of other diseases of the digestive system; Z88.2 Allergy status to sulfonamides; Z87.891 Personal history of nicotine dependence; Z90.49 Acquired absence of other specified parts of digestive tract
CPT/HCPCS: 36415; 71046; 74176; 80053; 83605; 85025; 87040; 87804; 96360; 96361

== ENCOUNTER 2018-02-07 20:16 | Emergency (ER) | payer MEDICARE, MEDICAID ==
[~2018-02-07] VITALS: Ht 180.3 cm; Wt 81.8 kg
--- OUTSIDE RECORDS SUMMARY | 2018-02-07 20:27 | XMS REPORT | Clinical Summary ---
Author Author [facility] Organization [facility] Address Unknown Phone Unavailable Care Team Providers Care Gluing Machine Operator Name Role Phone PP Unavailable Allergies No Known Allergies Current Medications Prescription Sig. Disp. Refills Start End Date Status Date ibuprofen (ADVIL,MOTRIN) Take 800 mg by mouth 2 Active 800 MG tablet (two) times daily. divalproex (DEPAKOTE ER) Take 500 mg by mouth 2 Active 500 MG 24 hr tablet (two) times daily. tramadol (ULTRAM) 50 MG Take 50 mg by mouth 2 Active tablet (two) times daily. gabapentin (NEURONTIN) Take 800 mg by mouth 2 Active 800 MG tablet (two) times daily. trihexyphenidyl (ARTANE) Take 2 mg by mouth 2 Active 2 MG tablet (two) times daily. propranolol (INDERAL) 10 Take 10 mg by mouth 2 Active MG tablet (two) times daily. olanzapine (ZYPREXA) 10 Take 10 mg by mouth Active MG tablet nightly. quetiapine (SEROQUEL XR) Take 300 mg by mouth Active 300 MG 24 hr tablet daily. Daily at 1600 fluticasone (FLOVENT HFA) Inhale 2 puffs into the Active 44 MCG/ACT inhaler lungs 2 (two) times daily. albuterol-ipratropium Inhale 2 puffs into the Active (COMBIVENT) 18-103 lungs every 6 (six) hours MCG/ACT inhaler as needed. divalproex (DEPAKOTE ER) Take 1 tablet (500 mg 60 tablet 0 08/18/20 Active 500 MG 24 hr tablet total) by mouth 2 (two) 12 times daily. gabapentin (NEURONTIN) Take 2 capsules (800 mg 60 capsule 0 08/18/20 Active 400 MG capsule total) by mouth 2 (two) 12 times daily. olanzapine (ZYPREXA) 10 Take 1 tablet (10 mg 30 tablet 0 12/01/20 Active MG tablet total) by mouth nightly. 12 propranolol (INDERAL) 10 Take 1 tablet (10 mg 60 tablet 0 08/18/20 Active MG tablet total) by mouth 2 (two) 12 times daily. Do not take medication if pulse below 60 per minute. quetiapine (SEROQUEL XR) Take 1 tablet (300 mg 30 tablet 0 08/18/20 Active 300 MG 24 hr tablet total) by mouth daily. 12 tramadol (ULTRAM) 50 MG Take 1 tablet (50 mg 60 tablet 0 08/18/20 Active tablet total) by mouth 2 (two) 12 times daily. trihexyphenidyl (ARTANE) Take 1 tablet (2 mg 60 tablet 0 08/18/20 Active 2 MG tablet total) by mouth 2 (two) 12 times daily. Active Problems No known active problems Resolved Problems Problem Noted Date Resolved Date Mood disorder (HCC) 08/16/2012 08/18/2012 Suicidal ideation 08/16/2012 08/18/2012 Social History Tobacco Use Types Packs/Day Years Used Date Current Every Day Smoker 1 Alcohol Use Drinks/Week oz/Week Comments No Sex Assigned at Date Recorded Not on file Last Filed Vital Signs Vital Sign Reading Time Taken Blood Pressure 102/65 08/18/2012 5:57 AM INFORMATION RECEPTIONIST Pulse 96 08/18/2012 9:22 AM INFORMATION RECEPTIONIST Temperature 37 C (98.6 F) 08/18/2012 5:57 AM INFORMATION RECEPTIONIST Respiratory Rate 12 08/18/2012 5:57 AM INFORMATION RECEPTIONIST Oxygen Saturation 95% 08/15/2012 10:01 PM INFORMATION RECEPTIONIST Inhaled Oxygen - - Concentration Weight 99.8 kg (220 lb) 08/15/2012 10:00 PM INFORMATION RECEPTIONIST Height 180.3 cm (5' 11") 08/15/2012 10:00 PM INFORMATION RECEPTIONIST Body Mass Index 30.68 08/15/2012 10:00 PM INFORMATION RECEPTIONIST Plan of Treatment Health Maintenance Due Date Last Done Comments Hepatitis C Screening 1955 DTaP,Tdap,and Td Vaccines 1976 (1 - Tdap) Colon Cancer Screening 2007 Zoster Recombinant 2007 Vaccine (RZV,Shingrix) (1 of 2 - [facility] 2 Dose Standard) Influenza Vaccine (Season 05/19/2018 Ended) Results Not on filefrom Last 3 Months
--- OUTSIDE RECORDS SUMMARY | 2018-02-07 20:29 | XMS REPORT ---
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 Active 5568118 Problem Pain in left shoulder M25.512 Active 71597205 Problem Back pain M54.9 Active 519919270 Problem Socially inappropriate behavior F99 Active 726912169 Problem Amphetamine abuse F15.10 Active 25444770 ALLERGIES No Information ENCOUNTERS Encounter Location Date Diagnosis [facility] [id number] [place] [address] 77892- 7675 Nov, [facility] [id number] [place] [address] 16613- 3249 Sep, [facility] [id number] [place] [address] 14289- 9413 Aug, [facility] [id number] [place] [address] 85868- 1819 Aug, [facility] [id number] [place] [address] 34736- 7038 Jul, [facility] [id number] [place] [address] 62456 -8804 29 Jul, 2017 Back pain M54.9 [facility] [id number] [place] [address] 98865- 8990 Jul, [facility] [address] [place] [address]- 1858 Jun, [facility] [id number] [place] [address] 99560- 2634 Jun, [facility] [id number] [place] [address] 27740- 1307 Jun, Arthritis M19.90 ; Pain in left shoulder M25.512 and Lumbar back pain M54.5 [facility] [id number] [place] [address] 56667- 4458 May, [facility] [id number] [place] [address] 04977- 9586 Apr, [place] [id number] [place] [address] 91768- 7917 Apr, [place] [id number] [place] [address] 61198- 8029 Apr, Essential hypertension I10 and Arthritis M19.90 [facility] [id number] [place] [address] 27097- 5789 Apr, [facility] [id number] [place] [address] 33370- 1868 Mar, [facility] [id number] [place] [address] 13015- 4181 Mar, Lumbar pain M54.5 ; 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 ; Allergic rhinitis, unspecified allergic rhinitis type J30.9 and Hematuria R31.9 [facility] [id number] [place] [address] 24346- 1542 Mar, [facility] [id number] [place] [address] 60113 -8861 January, Open bite, right lower leg, initial encounter S81.851A and Pain in left shoulder M25.512 [facility] [id number] [place] [address] 65709 -3121 Dec, [facility] [address] [address] Dec, Low back pain M54.5 [facility] [id number] [place] [address] 60300- 6431 Aug, [facility] [id number] [place] [address] 20793 -7806 Apr, Perforated left tympanic membrane on examination H72.92 and Deafness in left ear H91.92 [facility] [id number] [place] [address] 79104- 0513 Apr, [place] [id number] [place] [address] 18650- 7987 Mar, Lumbar back pain M54.5 ; Essential hypertension I10 ; Chronic obstructive pulmonary disease, unspecified COPD type J44.9 ; Anxiety F41.9 ; Long-term use of high-risk medication Z79.899 and Socially inappropriate behavior F99 [facility] [facility] [id number] [place] [address] 67584- 4260 Mar, [facility] [id number] [place] [address] 69270- 9229 Mar, Low back pain M54.5 [facility] [facility] [id number] [place] [address] 22557- 6163 Mar, [facility] [facility] [id number] [place] [address] 57684- 1218 Mar, [facility] [id number] [place] [address] 56073- 2271 Feb, Impingement syndrome, shoulder, left M75.42 and Superior glenoid labrum lesion of left shoulder, subsequent encounter S43.432D [facility] [id number] [place] [address] 29479- 0422 January, [facility] [id number] [place] [address] 68727- 0490 January, [place] [id number] [place] [address] 79442- 5529 January, [facility] [address] 93572- 8527 Dec, Impingement syndrome, shoulder, left M75.42 [place] [address] 47160- 4877 Dec, [facility] [address] 89341- 2208 Nov, [facility] [id number] [place] [address] 25319- 9200 Nov, Essential hypertension I10 ; Pain in left shoulder M25.512 ; Amphetamine abuse F15.10 and Callus of foot L84 [place] [id number] [place] [address] 33937- 2418 Nov, Shoulder pain, left M25.512 [facility] [facility] [id number] [place] [address] 78958- 8669 Nov, [place] [id number] [place] [address] 83184- 5598 Nov, [place] [id number] [place] [address] 49330- 0279 Nov, Allergic rhinitis, unspecified allergic rhinitis type J30.9 ; Right wrist pain M25.531 ; Back pain M54.9 and Essential hypertension I10 [place] [facility] [id number] [place] [address] 48317- 9677 Nov, [place] [id number] [place] [address] 52908- 4963 Oct, [place] [id number] [place] [address] 92534- 6609 Oct, Tobacco abuse Z72.0 ; Lumbar back pain M54.5 and Foot callus L84 [place] [address] 15219- 2533 Sep, [place] [id number] [place] [address] 24366- 7049 Sep, Lumbar pain M54.5 ; Essential hypertension I10 ; COPD ( chronic obstructive pulmonary disease) J44.9 ; Anxiety F41.9 and Allergic rhinitis, unspecified allergic rhinitis type J30.9 [place] [id number] [place] [address] 77950- 7016 Aug, [place] [id number] [place] [address] 10283- 2853 Aug, [place] [address] 82941- 2947 Jul, [place] [id number] [place] [address] 06437- 0127 Jul, Lumbar back pain M54.5 ; Essential hypertension I10 ; COPD ( chronic obstructive pulmonary disease) J44.9 ; Anxiety F41.9 and Allergic rhinitis J30.9 [facility] [facility] [id number] [place] [address] 63293- 5017 Apr, Positive urine drug screen 796.0 and Chronic lumbar pain 724.2 [place] [id number] [place] [address] 29140- 2619 Apr, [place] [id number] [place] [address] 76478- 2076 Apr, [place] [id number] [place] [address] 10913- 0649 Apr, [place] [id number] [place] [address] 50764- 0881 Apr, Lumbago 724.2 ; Unspecified viral hepatitis C without hepatic coma 070.70 ; Unspecified disorder of skin and subcutaneous tissue 709.9 and Long-term use of high-risk medication V58.69 [place] [id number] [place] [address] 69764- 4424 Mar, Vision changes 368.9 ; Allergic rhinitis 477.9 and Callus of foot 700 [facility] [id number] [place] [address] 29965- 7474 Mar, [facility] [id number] [place] [address] 65771- 8062 Mar, Chronic airway obstruction, not elsewhere classified 496 ; Essential hypertension, benign 401.1 ; Lumbago 724.2 ; Insomnia, unspecified 780.52 ; Anxiety state, unspecified 300.00 and Unspecified disorder of skin and subcutaneous tissue 709.9 [facility] [id number] [place] [address] [id number] Mar, Dental examination V72.2 [facility] [id number] [place] [address] 29526- 3382 Mar, [facility] [id number] [place] [address] 74406- 8160 Feb, Amphetamine and other psychostimulant dependence, unspecified abuse 304.40 [facility] [id number] [place] [address] 99775- 3171 Feb, Chronic airway obstruction, not elsewhere classified 496 ; Back pain 724.5 and Hypertension 401.9 [facility] [id number] [place] [address] 49888- 9814 January, Chronic airway obstruction, not elsewhere classified 496 ; Unspecified disorder of skin and subcutaneous tissue 709.9 ; Lumbago 724.2 ; Essential hypertension, benign 401.1 ; Foot callus 700 and Allergic rhinitis 477.9 [facility] [id number] [place] [address] 66929- 7689 January, [facility] [id number] [place] [address] 46594- 9449 January, [facility] [id number] [place] [address] 32279- 6301 Dec, [facility] [address] [place] [address]- 3348 13 Dec, 2014 [facility] [place] [facility] [address] [id number] [place] [address]- 1716 Nov, [facility] [place] [facility] [address] [id number] [place] [address]- 0866 Nov, [facility] [place] [facility] [address] [id number] [place] [address]- 0576 Nov, [facility] [place] [facility] [address] [id number] [place] [address]- 7177 Nov, [facility] [place] [facility] [address] [id number] [place] [address]- 4633 Nov, [facility] [place] [facility] [address] [id number] [place] [address]- 3669 Nov, [facility] [place] [facility] [address] [id number] [place] [address]- 5616 16 Nov, 2014 [facility] [place] [facility] [address] [id number] [place] [address]- 3416 Nov, [facility] [place] [facility] [address] [id number] [place] [address]- 1020 Nov, [facility] [place] [facility] [address] [facility] [id number] [place] [address]- 7761 Oct, 2014 [facility] [place] [facility] [address] [id number] [place] [address]- 5928 Oct, 2014 [facility] [place] [facility] [address] [facility] [id number] [place] [address]- 6311 Oct, 2014 [facility] [place] [facility] [address] [id number] [place] [address]- 3707 Oct, 2014 [facility] [place] [facility] [address] [facility] [id number] [place] [address]- 8906 Oct, 2014 [facility] [place] [facility] [address] [facility] [id number] [place] [address]- 9786 Oct, [facility] [place] [facility] [address] [id number] [place] [address]- 6587 Oct, 2014 [facility] [place] [facility] [address] [id number] [place] [address]- 4743 Oct, 2014 [facility] [place] [facility] [address] [id number] [place] [address]- 9028 Oct, 2014 [facility] [place] [facility] [address] [id number] [place] [address]- 5657 Oct, 2014 [facility] [place] [facility] [address] [id number] [place] [address]- 5046 Oct, [facility] [place] [facility] [address] [id number] [place] [address]- 8224 Oct, [facility] [place] [facility] [address] [id number] [place] [address]- 5157 Oct, [facility] [place] [facility] [address] [id number] [place] [address]- 5425 Sep, [facility] [place] [facility] [address] [id number] [place] [address]- 7921 Sep, [facility] [place] [facility] [address] [id number] [place] [address]- 3835 Sep, [facility] [place] [facility] [address] [id number] [place] [address]- 1085 Sep, [facility] [place] [facility] [address] [id number], [place] [address]- 5874 Sep, [facility] [place] [facility] [address] [id number] [place] [address]- 6478 Sep, [facility] [place] [facility] [address] [id number] [place] [address]- 5607 Sep, [facility] [place] [facility] [address] [id number] [place] [address]- 5944 Sep, [facility] [place] [facility] [address] [id number] [place] 5151 31 Aug, 2014 [facility] [place] [address] [id number] [place] 6806 Aug, [facility] [place] [facility] [address] [id number] [place] [address]- 9266 Aug, [facility] [place] [facility] [address] [id number] [place] 2326 Aug, [facility] [place] [facility] [address] [id number] [place] [address]- 3831 Aug, [facility] [place] [facility] [address] [id number] [place] [address]- 0726 Aug, [facility] [address] [id number] [place] [address]- 8839 Aug, [facility] [place] [facility] [address] [id number] [place] [address]- 2792 Aug, [facility] [place] [address] [id number] [place] [address]- 5017 Aug, [facility] [place] [facility] [address] [id number] [place] [address]- 8434 Aug, [facility] [place] [address] [id number] [place] [address]- 7886 Aug, [facility] [place] [facility] [address] [id number] [place] [address]- 0646 Aug, [facility] [place] [facility] [address] [id number] [place] [address]- 6620 Aug, [facility] [place] [facility] [address] [id number] [place] 2530 Aug, [facility] [place] [facility] [address] [id number] [place] [id number] Aug, [facility] [place] [facility] [address] [id number] [place] [address]- 4349 Aug, [facility] [place] [facility] [address] [id number] [place] [address]- 3395 Jul, [facility] [place] [facility] [address] [id number] [place] [address]- 4110 Jul, [facility] [place] [facility] [address] [id number] [place] [address]- 8805 Jul, [facility] [place] [facility] [address] [id number] [place] [address]- 4618 Jul, [facility] [place] [facility] [address] [id number] [place] [address]- 5052 Jul, [facility] [place] [facility] [address] [id number] [place] [address]- 7465 Jul, [facility] [place] [facility] [address] [id number] [place] [address]- 3838 Jun, [facility] [place] [facility] [address] [id number] [place] [address]- 1942 Jun, [facility] [place] [facility] [address] [id number] [place] [address]- 1809 Jun, [facility] [place] [facility] [address] [id number] [place] [address]- 3087 Jun, [facility] [place] [facility] [address] [id number] [place] [address]- 3456 Jun, [facility] [place] [facility] [address] [id number], [place] [address]- 1595 Jun, [facility] [place] [facility] [address] [id number] [place] [address]- 6003 Jun, [facility] [place] [facility] [address] [id number] [place] [address]- 4508 Jun, [facility] [place] [facility] [address] [id number], [place] [address]- 7598 Jun, [facility] [place] [facility] [address] [id number], [place] [address]- 9798 Jun, 2013 [facility] [place] [facility] [address] [id number] [place] [address]- 6660 Jun, 2013 [facility] [place] [facility] [address] [id number] [place] 9751 Jun, 2013 [facility] [place] [facility] [address] [id number] [place] [address]- 3881 Jun, 2013 [facility] [place] [facility] [address] [id number] [place] [address]- 8162 Jun, 2013 [facility] [place] [facility] [address] [id number] [place] [address]- 8938 Jun, 2013 [facility] [place] [facility] [address] [id number] [place] [address]- 9761 Jun, 2013 [facility] [place] [facility] [address] [facility] [id number] [place] [address]- 5261 Jun, 2013 [facility] [place] [facility] [address] [id number] [place] [address]- 8513 Jun, 2013 [facility] [place] [facility] [address] [facility] [id number] [place] [address]- 6232 Jun, 2013 [facility] [place] [facility] [address] [facility] [id number] [place] [address]- 1231 Jun, 2013 [facility] [place] [facility] [address] [id number], [place] [address]- 3491 Jun, 2013 [facility] [place] [facility] [address] [id number], [place] [address]- 0178 Jun, [facility] [place] [facility] [address] [id number] [place] 6806 Jun, [facility] [place] [facility] [address] [facility] [id number] [place] [address]- 4302 May, 2013 [facility] [place] [facility] [address] [facility] [id number] [place] [address]- 3349 29 May, 2013 [facility] [place] [facility] [address] [id number] [place] [address]- 9736 May, 2013 [facility] [place] [facility] [address] [id number] [place] [address]- 7300 May, [facility] [place] [facility] [address] [id number] [place] [address]- 5076 May, [facility] [place] [facility] [address] [id number] [place] [address]- 2475 May, [facility] [place] [facility] [address] [id number] [place] [address]- 4799 May, [facility] [place] [facility] [address] [id number] [place] [address]- 9829 May, [facility] [place] [facility] [address] [id number] [place] [address]- 8555 Apr, [facility] [place] [facility] [address] [id number] [place] [address]- 4364 Apr, [facility] [place] [facility] [address] [id number] [place] [address]- 3304 Apr, [facility] [place] [facility] [address] [id number] [place] [address]- 9877 Apr, [facility] [place] [facility] [address] [id number] [place] [address]- 0584 Apr, [facility] [place] [facility] [address] [id number] [place] [address]- 2116 Apr, [facility] [place] [facility] [address] [id number] [place] [address]- 2681 Apr, [facility] [place] [facility] [address] [id number] [place] [address]- 6245 Apr, [facility] [place] [facility] [address] [id number] [place] [address]- 5993 Apr, [facility] [place] [facility] [address] [id number] [place] [address]- 0992 Apr, [facility] [place] [facility] [address] [id number] [place] [address]- 4670 Apr, [facility] [place] [facility] [address] [id number] [place] [address]- 3130 Apr, [facility] [place] [facility] [address] [id number] [place] [address]- 7805 Apr, [facility] [place] [facility] [address] [id number] [place] [address]- 4360 Apr, [facility] [place] [facility] [address] [id number] [place] [address]- 7545 Apr, [facility] [place] [facility] [address] [id number] [place] [address]- 3693 Apr, [facility] [place] [facility] [address] [id number] [place] [address]- 1321 Apr, [facility] [place] [facility] [address] [id number] [place] [address] Apr, [facility] [place] [facility] [address] [id number] [place] [address] Apr, [facility] [place] [facility] [address] [id number] [place] [address] Apr, [facility] [place] [facility] [address] [id number] [place] [address] Apr, [facility] [place] [facility] [address] [id number] [place] [address] Apr, [facility] [place] [facility] [address] [id number] [place] [address] Mar, [facility] [place] [facility] [address] [id number] [place] [address] Mar, [facility] [place] [facility] [address] [id number] [place] [address] Mar, [facility] [place] [facility] [address] [id number] [place] [address] Mar, [facility] [place] [facility] [address] [id number] [place] [address] Mar, [facility] [place] [facility] [address] [id number] [place] [address] Mar, [facility] [place] [facility] [address] [id number] [place] [address] Mar, [facility] [place] [facility] [address] [id number] [place] [address] Mar, [facility] [place] [facility] [address] [id number] [place] [address] Feb, [facility] [place] [facility] [address] [id number] [place] [address] Feb, [facility] [place] [facility] [address] [id number] [place] [address] Feb, [facility] [place] [facility] [address] [id number] [place] [address] Feb, [facility] [place] [facility] [address] [id number] [place] [address] 164[address] Feb, [facility] [place] [facility] [address] [id number] [place] [address] Feb, [facility] [place] [facility] [address] [id number] [place] [address] Feb, [facility] [place] [facility] [address] [id number] [place] [address]68 January, [facility] [place] [facility] [address] [id number] [place] [address] January, [facility] [place] [facility] [address] [id number] [place] [address] 85[address] January, [facility] [place] [facility] [address] [id number] [place] [address] 69[address] January, [facility] [place] [facility] [address] [id number] [place] [address] Dec, [facility] [place] [facility] [address] [id number] [place] [address]- [address] Dec, [facility] [place] [facility] [address] [id number] [place] [address] Dec, [facility] [place] [facility] [address] [id number] [place] [address] Dec, [facility] [place] [facility] [address] [id number] [place] [address] Dec, [facility] [place] [facility] [address] [id number] [place] [address] Dec, [facility] [place] [facility] [address] [id number] [place] [address] Dec, [facility] [place] [facility] [address] [id number] [place] [address] Dec, [facility] [place] [facility] [address] [id number] [place] [address] Dec, [facility] [place] [facility] [address] [id number] [place] [address] Dec, [facility] [place] [facility] [address] [id number] [place] [address] Nov, [facility] [place] [facility] [address] [id number] [place] [address] Nov, [facility] [place] [facility] [address] [id number] [place] [address] Nov, [facility] [place] [facility] [address] [id number] [place] [address] Nov, [facility] [place] [facility] [address] [id number] [place] [address] Oct, [facility] [place] [facility] [address] [id number] [place] [address] Oct, [facility] [place] [facility] [address] [id number] [place] [address] Oct, [facility] [place] [facility] [address] [id number] [place] [address]- 8301 Oct, [facility] [place] [facility] [address] [id number] [place] [address]- [address] Oct, [facility] [place] [facility] [address] [id number] [place] [address] Oct, [facility] [place] [facility] [address] [id number] [place] [address]- [address] Oct, [facility] [place] [facility] [address] [id number] [place] [address] Oct, [facility] [place] [facility] [address] [id number] [place] [address] Sep, [facility] [place] [facility] [address] [id number] [place] [address] 39[address] Sep, [facility] [place] [facility] [address] [id number] [place] [address]- [address] Sep, [facility] [place] [facility] [address] [facility] [id number] [place] [address]- [address] Sep, [facility] [place] [facility] [address] [id number] [place] [address]161 Aug, [facility] [place] [facility] [address] [id number] [address] Aug, [facility] [place] [facility] [address] [id number] [place] [address] Aug, [facility] [place] [facility] [address] [id number] [place] [address] Aug, [facility] [place] [facility] [address] [id number], [place] [address] Jul, [facility] [place] [facility] [address] [id number] [place] [address]- [address] Jul, [facility] [place] [facility] [address] [id number] [place] [address] 47[address] Jul, [facility] [place] [facility] [address] [id number] [place] [address] Jul, [facility] [place] [facility] [address] [id number] [place] [address] Jun, [facility] [place] [facility] [address] [id number] [place] [address] Jun, [facility] [place] [facility] [address] [id number] [place] [address] Jun, [facility] [place] [facility] [address] [id number] [place] [address] Jun, [facility] [place] [facility] [address] [id number] [place] [address] Jun, [facility] [place] [facility] [address] [id number] [place] [address] Jun, [facility] [place] [facility] [address] [id number] [place] [address] 08 Jun, 2013 [facility] [place] [facility] [address] [id number] [place] [address] 17 May, 2013 [facility] [place] [facility] [address] [id number] [place] [address] May, [facility] [place] [facility] [address] [id number] [place] [address] May, [facility] [place] [facility] [address] [id number] [place] [address] Apr, [facility] [place] [facility] [address] [id number] [place] [address] Apr, [facility] [place] [facility] [address] [id number] [place] [address] Apr, [facility] [place] [facility] [address] [id number] [place] [address] Apr, [facility] [place] [facility] [address] [id number] [place] [address] Apr, [facility] [place] [facility] [address] [id number] [place] [address] Mar, [facility] [place] [facility] [address] [id number] [place] [address] Mar, [facility] [place] [facility] [address] [id number] [place] [address] Mar, [facility] [place] [facility] [address] [id number] [place] [address] Mar, [facility] [place] [facility] [address] [id number] [place] [address]207 Mar, [facility] [place] [facility] [address] [id number] [place] [address] Mar, [facility] [place] [facility] [address] [id number] [place] [address] Feb, [facility] [place] [facility] [address] [id number] [place] [address] Feb, [facility] [place] [facility] [address] [id number] [place] [address] Feb, [facility] [place] [facility] [address] [id number] [place] [address] Feb, [facility] [place] [facility] [address] [id number] [place] [address] Feb, [facility] [place] [facility] [address] [id number] [place] [address] Feb, [facility] [place] [facility] [address] [id number] [place] [address] Feb, [facility] [place] [facility] [address] [id number] [place] [address] 2546 Feb, [facility] [address] [id number] [place] [address] 16[address] Feb, [facility] [address] [id number] [place] [address] January, [facility] [address] [id number] [place] [address] January, [facility] [address] [id number] [place] [address] January, [facility] [address] [id number] [place] [address] January, [facility] [address] [id number] [place] [address]14 January, [facility] [address] [id number] [place] [address] January, [facility] [address] [id number] [place] [address] January, [facility] [address] [id number] [place] [address] January, [facility] [place] [address] [id number] [place] [address] January, [facility] [place] [address] [id number] [place] [address] January, [facility] [address] [id number] [place] [address] Dec, [facility] [address] [id number] [place] [address] Dec, [facility] [address] [id number] [place] [address] Dec, [facility] [address] [id number] [place] [address] Dec, [facility] [id number] [address] Dec, [facility] [id number] [place] [address] 9[address]- [address] Dec, [facility] [id number] [address] Nov, [facility] [id number] [place] [address] 6[address]236- [address] Nov, [facility] [id number] [address] Nov, [facility] [id number] [place] [address]- [address] Oct, [facility] [id number] [place] [address]- 9826 Oct, [facility] [id number] [place] [address]- [address] Oct, [facility] [id number] [place] [address]- 133[address] Oct, [facility] [id number], [place] [address] Oct, [facility] [id number] [place] [address] Jun, IMMUNIZATIONS No Known Immunizations SOCIAL HISTORY Never Assessed REASON FOR VISIT Guardianship paperwork PLAN OF CARE VITAL SIGNS MEDICATIONS Unknown Medications RESULTS No Results PROCEDURES No Known procedures INSTRUCTIONS MEDICATIONS ADMINISTERED No Known Medications MEDICAL (GENERAL) HISTORY Type Description Date Medical History hepatitis C (labs 06/2014 show active again 6 months post tx) Medical History chronic obstructive pulmonary disease (COPD) Medical History depression & anxiety Medical History schizoaffective disorder Medical History Hypertension Medical History Chronic lumbar pain Medical History Amphetamine and pyschostimulant abuse Medical History Schizoaffective disorder, unspecified Medical History 11-14-15 positive for amphetamine at ER no more claritin D Surgical History appendectomy Surgical History Colonoscopy (fiberoptic) was performed: diffuse diverticulosis, no polyps. 12/2012
--- OUTSIDE RECORDS SUMMARY | 2018-02-07 20:30 | XMS REPORT ---
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 Active 6862219 Problem Pain in left shoulder M25.512 Active 98577699 Problem Back pain M54.9 Active 615973681 Problem Socially inappropriate behavior F99 Active 080580972 Problem Amphetamine abuse F15.10 Active 86057019 ALLERGIES Substance Reaction Event Type Date Status Sulfamethoxazole-Trimethoprim Unknown Drug Allergy Mar, Active ENCOUNTERS Encounter Location Date Diagnosis [facility] [id number] [place] [address] 25922- 2556 Nov, [facility] [id number] [place] [address] 20171- 2672 Sep, [facility] [id number] [place] [address] 75126- 8503 Aug, [facility] [id number] [place] [address] 18325- 6506 Aug, [facility] [id number] [place] [address] 19599- 6022 Jul, [facility] [id number] [place] [address] 12497 -5632 Jul, Back pain M54.9 [facility] [id number] [place] [address] 23756- 7124 Jul, [facility] [id number] [place] [address] 97839- 0763 Jun, [facility] [id number] [place] [address] 34336- 3085 Jun, [facility] [id number] [place] [address] 06177- 2646 Jun, Arthritis M19.90 ; Pain in left shoulder M25.512 and Lumbar back pain M54.5 [facility] [id number] [place] [address] 26976- 5659 May, [facility] [id number] [place] [address] 82091- 4823 Apr, [facility] [id number] [place] [address] 09175- 3832 Apr, [facility] [id number] [place] [address] 17492- 8190 Apr, Essential hypertension I10 and Arthritis M19.90 [facility] [id number] [place] [address] 39630- 8199 Apr, [facility] [id number] [place] [address] 28535- 8350 Mar, [facility] [id number] [place] [address] 61392- 8605 Mar, Lumbar pain M54.5 ; 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 ; Allergic rhinitis, unspecified allergic rhinitis type J30.9 and Hematuria R31.9 [facility] [id number] [address] 1829 Mar, [facility] [id number] [place] [address] 45856 -9944 January, Open bite, right lower leg, initial encounter S81.851A and Pain in left shoulder M25.512 [facility] [id number] [place] [address] 68022 -6117 Dec, [facility] [address] [address] Dec, Low back pain M54.5 [facility] [id number] [place] [address] 51248- 9598 Aug, [facility] [id number] [place] [address] 94313 -8587 Apr, Perforated left tympanic membrane on examination H72.92 and Deafness in left ear H91.92 [facility] [id number] [place] [address] 17022- 0754 Apr, [facility] [id number] [place] [address] 91888- 9621 Mar, Lumbar back pain M54.5 ; Essential hypertension I10 ; Chronic obstructive pulmonary disease, unspecified COPD type J44.9 ; Anxiety F41.9 ; Long-term use of high-risk medication Z79.899 and Socially inappropriate behavior F99 [facility] [id number] [place] [address] 16099- 1094 Mar, [facility] [id number] [place] [address] 92856- 2681 Mar, Low back pain M54.5 [facility] [id number] [place] [address] 88416- 3849 Mar, [facility] [id number] [place] [address] 05705- 6953 Mar, [facility] [id number] [place] [address] 46663- 3947 Feb, Impingement syndrome, shoulder, left M75.42 and Superior glenoid labrum lesion of left shoulder, subsequent encounter S43.432D [facility] [id number] [place] [address] 77356- 7035 January, [facility] [id number] [place] [address] 13297- 5992 January, [facility] [id number] [place] [address] 07405- 5112 January, [facility] [id number] [place] [address] 12706- 3204 Dec, Impingement syndrome, shoulder, left M75.42 [facility] [id number] [place] [address] 01251- 6509 Dec, [facility] [id number] [place] [address] 14024- 6490 Nov, [facility] [address] 03213- 6416 Nov, Essential hypertension I10 ; Pain in left shoulder M25.512 ; Amphetamine abuse F15.10 and Callus of foot L84 [facility] [address] 00534- 9978 Nov, Shoulder pain, left M25.512 [facility] [id number] [place] [address] 60022- 5573 Nov, [facility] [id number] [place] [address] 38014- 2495 Nov, [facility] [id number] [place] [address] 55191- 7951 Nov, Allergic rhinitis, unspecified allergic rhinitis type J30.9 ; Right wrist pain M25.531 ; Back pain M54.9 and Essential hypertension I10 [facility] [id number] [place] [address] 24892- 4798 Nov, [facility] [address] 26118- 7872 Oct, [facility] [id number] [place] [address] 93808- 0095 Oct, Tobacco abuse Z72.0 ; Lumbar back pain M54.5 and Foot callus L84 [place] [facility] [id number] [place] [address] 60966- 9129 Sep, [facility] [id number] [place] [address] 75370- 7183 Sep, Lumbar pain M54.5 ; Essential hypertension I10 ; COPD ( chronic obstructive pulmonary disease) J44.9 ; Anxiety F41.9 and Allergic rhinitis, unspecified allergic rhinitis type J30.9 [facility] [address] 68526- 2301 Aug, [facility] [id number] [place] [address] 24938- 8080 Aug, [facility] [address] 61625- 8968 Jul, [facility] [address] 25846- 7780 Jul, Lumbar back pain M54.5 ; Essential hypertension I10 ; COPD ( chronic obstructive pulmonary disease) J44.9 ; Anxiety F41.9 and Allergic rhinitis J30.9 [facility] [id number] [place] [address] 95284- 7379 Apr, Positive urine drug screen 796.0 and Chronic lumbar pain 724.2 [facility] [id number] [place] [address] 91690- 5949 Apr, [facility] [id number] [place] [address] 62018- 7898 Apr, [facility] [id number] [place] [address] 48782- 1641 Apr, [facility] [address] 09794- 6090 Apr, Lumbago 724.2 ; Unspecified viral hepatitis C without hepatic coma 070.70 ; Unspecified disorder of skin and subcutaneous tissue 709.9 and Long-term use of high-risk medication V58.69 [facility] [id number] [place] [address] 70684- 7325 Mar, Vision changes 368.9 ; Allergic rhinitis 477.9 and Callus of foot 700 [facility] [id number] [place] [address] 83056- 4161 Mar, [facility] [id number] [place] [address] 69056- 4669 Mar, Chronic airway obstruction, not elsewhere classified 496 ; Essential hypertension, benign 401.1 ; Lumbago 724.2 ; Insomnia, unspecified 780.52 ; Anxiety state, unspecified 300.00 and Unspecified disorder of skin and subcutaneous tissue 709.9 [facility] [id number] [place] [address] [id number] Mar, Dental examination V72.2 [facility] [address] 32606- 5096 Mar, [facility] [address] 67194- 8886 Feb, Amphetamine and other psychostimulant dependence, unspecified abuse 304.40 [facility] [id number] [place] [address] 00883- 9048 Feb, Chronic airway obstruction, not elsewhere classified 496 ; Back pain 724.5 and Hypertension 401.9 [facility] [id number] [place] [address] 25593- 0772 January, Chronic airway obstruction, not elsewhere classified 496 ; Unspecified disorder of skin and subcutaneous tissue 709.9 ; Lumbago 724.2 ; Essential hypertension, benign 401.1 ; Foot callus 700 and Allergic rhinitis 477.9 [facility] [address] 54540- 1361 January, [facility] [id number] [place] [address] 13267- 9166 January, [facility] [id number] [place] [address] 29058- 2502 Dec, [facility] [place] [facility] [address] [id number] [place] [address]- 1090 13 Dec, 2014 [facility] [place] [facility] [address] [id number] [place] [address]- 8881 27 Nov, 2014 [facility] [place] [facility] [address] [id number] [place] [address]- 9367 Nov, [facility] [place] [facility] [address] [id number] [place] [address]- 0654 Nov, [facility] [place] [facility] [address] [id number] [place] [address]- 6861 Nov, [facility] [place] [facility] [address] [id number] [place] [address]- 6315 Nov, [facility] [place] [facility] [address] [id number] [place] [address]- 3544 Nov, [facility] [place] [facility] [address] [id number] [place] [address]- 6579 16 Nov, 2014 [facility] [place] [facility] [address] [id number] [place] [address]- 7207 Nov, [facility] [place] [facility] [address] [id number] [place] [address]- 8218 Nov, [facility] [place] [facility] [address] [id number] [place] [address]- 7235 Oct, 2014 [facility] [place] [facility] [address] [id number] [place] [address]- 5067 Oct, 2014 [facility] [place] [facility] [address] [id number] [place] [address]- 1233 Oct, [facility] [place] [facility] [address] [id number] [place] [address]- 3656 Oct, 2014 [facility] [place] [facility] [address] [id number] [place] [address]- 4843 Oct, [facility] [place] [facility] [address] [id number] [place] [address]- 4405 Oct, 2014 [facility] [place] [facility] [address] [id number] [place] [address]- 0684 Oct, 2014 [facility] [place] [facility] [address] [id number] [place] [address]- 6786 Oct, 2014 [facility] [place] [facility] [address] [id number] [place] [address]- 0236 Oct, 2014 [facility] [place] [facility] [address] [id number] [place] [address]- 1403 Oct, 2014 [facility] [place] [facility] [address] [id number] [place] [address]- 3695 Oct, 2014 [facility] [place] [facility] [address] [id number] [place] [address]- 1468 Oct, 2014 [facility] [place] [facility] [address] [id number] [place] [address]- 4860 Oct, [facility] [place] [facility] [address] [id number] [place] [address]- 9496 Sep, [facility] [place] [facility] [address] [facility] [id number] [place] [address]- 6054 Sep, [facility] [place] [facility] [address] [id number] [place] [address]- 8783 Sep, [facility] [place] [facility] [address] [id number] [place] [address]- 1174 Sep, [facility] [place] [facility] [address] [id number] [place] [address]- 9407 Sep, [facility] [place] [facility] [address] [id number] [place] [address]- 2219 Sep, [facility] [place] [facility] [address] [id number] [place] [address]- 6631 Sep, [facility] [place] [facility] [address] [id number] [place] [address]- 9758 Sep, [facility] [place] [facility] [address] [id number] [place] 9617 Aug, [facility] [place] [facility] [address] [id number] [place] 6376 Aug, [facility] [place] [facility] [address] [id number] [place] 8916 Aug, [facility] [place] [facility] [address] [id number] [place] 5666 Aug, [facility] [place] [facility] [address] [id number] [place] [address]- 7593 Aug, [facility] [place] [facility] [address] [id number] [place] [address]- 8418 Aug, [facility] [place] [facility] [address] [id number] [place] [address]- 6903 Aug, [facility] [place] [facility] [address] [id number] [place] [address]- 8267 Aug, [facility] [place] [facility] [address] [id number] [place] [address]- 8556 Aug, [facility] [place] [facility] [address] [id number] [place] [address]- 6120 Aug, [facility] [place] [facility] [address] [id number] [place] [address]- 8321 Aug, [facility] [place] [facility] [address] [id number] [address]- 0712 Aug, [facility] [place] [facility] [address] [id number] [place] 7490 Aug, [facility] [place] [facility] [address] [id number] [place]- 1474 Aug, [facility] [place] [facility] [address] [id number] [place] [address] Aug, [facility] [place] [facility] [address] [id number] [place] [address]- 8134 Aug, [facility] [place] [facility] [address] [id number] [place] [address]- 1270 Jul, [facility] [place] [facility] [address] [id number] [place] [address]- 2332 Jul, [facility] [place] [facility] [address] [id number] [place] [address]- 1438 Jul, [facility] [place] [facility] [address] [id number] [place] [address]- 7059 Jul, [facility] [place] [facility] [address] [id number] [place] [address]- 5100 Jul, [facility] [place] [facility] [address] [id number] [place] [address]- 7704 Jul, [facility] [place] [facility] [address] [id number] [place] [address]- 1850 Jun, [facility] [place] [facility] [address] [id number] [place] [address]- 6033 Jun, [facility] [place] [facility] [address] [id number] [place] [address]- 4310 Jun, [facility] [place] [facility] [address] [facility] [id number] [place] [address]- 4484 Jun, [facility] [place] [facility] [address] [id number] [place] [address]- 3849 Jun, [facility] [place] [facility] [address] [id number] [place] [address]- 1622 Jun, [facility] [place] [facility] [address] [id number] [place] [address]- 6180 Jun, [facility] [place] [facility] [address] [id number] [place] [address]- 9593 Jun, [facility] [place] [facility] [address] [id number] [place] [address]- 4982 Jun, [facility] [place] [facility] [address] [id number] [place] [address]- 5782 Jun, 2013 [facility] [place] [facility] [address] [id number] [place] 7638 Jun, 2013 [facility] [place] [facility] [address] [id number] [place] [address]- 6695 Jun, 2013 [facility] [place] [facility] [address] [id number] [place] [address]- 5370 Jun, 2013 [facility] [place] [facility] [address] [id number] [place] [address]- 1817 Jun, 2013 [facility] [place] [facility] [address] [id number] [place] [address]- 2885 Jun, 2013 [facility] [place] [facility] [address] [id number] [place] [address]- 5599 Jun, 2013 [facility] [place] [facility] [address] [id number] [place] [address]- 7628 Jun, 2013 [facility] [place] [facility] [address] [id number] [place] [address]- 8921 Jun, 2013 [facility] [place] [facility] [address] [id number] [place] [address]- 3597 Jun, 2013 [facility] [place] [facility] [address] [id number] [place] [address]- 8980 Jun, 2013 [facility] [place] [facility] [address] [id number], [place] [address]- 1800 Jun, 2013 [facility] [place] [facility] [address] [id number] [place] [address]- 1180 Jun, [facility] [place] [facility] [address] [id number] [place] [address]- 5960 Jun, [facility] [place] [facility] [address] [id number] [place] [address]- 7338 May, [facility] [place] [facility] [address] [id number] [place] [address]- 5878 May, [facility] [place] [facility] [address] [id number] [place] [address]- 7191 May, [facility] [place] [facility] [address] [id number] [place] [address]- 4676 May, [facility] [place] [facility] [address] [id number] [place] [address]- 8240 May, [facility] [place] [facility] [address] [id number] [place] [address]- 8281 May, [facility] [place] [facility] [address] [id number] [place] [address]- 5952 May, [facility] [place] [facility] [address] [id number] [place] [address]- 5883 May, [facility] [place] [facility] [address] [id number] [place] [address]- 8390 Apr, [facility] [place] [facility] [address] [id number] [place] [address]- 7565 Apr, [facility] [place] [facility] [address] [id number] [place] [address]- 6868 Apr, [facility] [place] [facility] [address] [id number] [place] [address]- 5562 Apr, [facility] [place] [facility] [address] [id number] [place] [address]- 9439 Apr, [facility] [place] [facility] [address] [id number] [place] [address]- 7762 Apr, [facility] [place] [facility] [address] [id number] [place] [address]- 3753 Apr, [facility] [place] [facility] [address] [id number] [place] [address]- 1320 Apr, [facility] [place] [facility] [address] [id number] [place] [address]- 0987 Apr, [facility] [place] [facility] [address] [id number] [place] [address]- 6138 Apr, [facility] [place] [facility] [address] [id number] [place] [address]- 3997 Apr, [facility] [place] [facility] [address] [id number] [place] [address]- 4093 Apr, [facility] [place] [facility] [address] [id number] [place] [address]- 0679 Apr, [facility] [place] [facility] [address] [id number] [place] [address]- 9773 Apr, [facility] [place] [facility] [address] [id number] [place] [address]- 2344 Apr, [facility] [place] [facility] [address] [id number] [place] [address]- 2782 Apr, [facility] [place] [facility] [address] [id number] [place] [address]- 0079 Apr, [facility] [place] [facility] [address] [id number] [place] [address]- 1806 Apr, [facility] [place] [facility] [address] [id number] [place] [address]- 7888 Apr, [facility] [place] [facility] [address] [id number] [place] [address]- 9375 Apr, [facility] [place] [facility] [address] [id number] [place] [address]- 4601 Apr, [facility] [place] [facility] [address] [id number] [place] [address]- 4032 Apr, [facility] [place] [facility] [address] [id number] [place] [address]- 6416 Mar, [facility] [place] [facility] [address] [id number] [place] [address]- 2207 Mar, [facility] [place] [facility] [address] [id number] [place] [address] Mar, [facility] [place] [facility] [address] [id number] [place] [address] Mar, [facility] [place] [facility] [address] [id number] [place] [address] Mar, [facility] [place] [facility] [address] [id number] [place] [address] Mar, [facility] [place] [facility] [address] [id number] [place] [address] Mar, [facility] [place] [facility] [address] [id number] [place] [address] Mar, [facility] [place] [facility] [address] [id number] [place] [address] Feb, [facility] [place] [facility] [address] [id number] [place] [address] Feb, [facility] [place] [facility] [address] [id number] [place] [address] Feb, [facility] [place] [facility] [address] [id number] [place] [address] Feb, [facility] [place] [facility] [address] [id number] [place] [address] Feb, [facility] [place] [facility] [address] [id number] [place] [address] Feb, [facility] [place] [facility] [address] [id number] [place] [address] Feb, [facility] [place] [facility] [address] [id number] [place] [address] January, [facility] [place] [facility] [address] [id number] [place] [address] January, [facility] [place] [facility] [address] [id number] [place] [address] January, [facility] [address] [id number], [place] [address] January, [facility] [address] [id number] [place] [address] Dec, [facility] [place] [facility] [address] [id number] [place] [address] Dec, [facility] [facility] [address] [id number] [place] [address] Dec, [facility] [address] [id number] [place] [address] Dec, [facility] [place] [facility] [address] [id number] [place] [address] Dec, [facility] [place] [facility] [address] [id number] [place] [address] Dec, [facility] [address] [id number] [place] [address] Dec, [facility] [place] [facility] [address] [id number] [place] [address] Dec, [facility] [place] [address] [id number] [place] [address] Dec, [facility] [place] [facility] [address] [id number] [place] [address] Dec, [facility] [place] [facility] [address] [id number] [place] [address] Nov, [facility] [address] [id number] [place] [address] Nov, [facility] [place] [address] [id number] [place] [address] Nov, [facility] [address] [id number] [place] [address] Nov, [facility] [address] [id number] [place] [address] Oct, [facility] [address] [id number] [place] [address] Oct, [facility] [place] [address] [id number] [place] [address] Oct, [facility] [address] [id number] [place] [address] Oct, [facility] [address] [id number] [place] [address] Oct, [facility] [address] [id number] [place] [address] Oct, [facility] [address] [id number] [place] [address] Oct, [facility] [address] [id number] [place] [address] Oct, [facility] [address] [id number] [place] [address] Sep, [facility] [address] [id number] [place] [address] Sep, [facility] [address] [facility] [id number], [place] [address] Sep, [facility] [facility] [address] [id number], [place] [address] Sep, [facility] [address] [id number], [place] [address] Aug, [facility] [facility] [address] [id number], [place] [address] Aug, [facility] [place] [facility] [address] [id number], [place] [address] Aug, [facility] [facility] [address] [id number] [address] Aug, [facility] [facility] [address] [id number], [place] [address] Jul, [facility] [place] [facility] [address] [id number] [place] [address] Jul, [facility] [place] [facility] [address] [id number] [place] [address] Jul, [facility] [place] [facility] [address] [id number] [place] [address] Jul, [facility] [place] [facility] [address] [id number] [place] [address] Jun, [facility] [place] [facility] [address] [id number] [place] [address] Jun, [facility] [place] [facility] [address] [id number] [place] [address] Jun, [facility] [place] [facility] [address] [id number], [place] [address] Jun, [facility] [place] [facility] [address] [id number] [place] [address] Jun, [facility] [place] [facility] [address] [facility] [id number] [place] [address] Jun, [facility] [place] [facility] [address] [facility] [id number] [place] [address] 08 Jun, 2013 [facility] [address] [id number], [place] [address] 17 May, 2013 [facility] [place] [facility] [address] [id number], [place] [address] May, [facility] [place] [facility] [address] [id number] [place] [address] May, [facility] [place] [address] [facility] [id number], [place] [address] Apr, [facility] [place] [facility] [address] [id number] [place] [address] Apr, [facility] [place] [facility] [address] [id number] [place] [address] Apr, [facility] [place] [facility] [address] [id number] [place] [address] Apr, [facility] [place] [facility] [address] [id number] [place] [address] Apr, [facility] [place] [facility] [address] [id number] [place] [address]- [address] Mar, [facility] [place] [facility] [address] [id number] [place] [address] Mar, [facility] [place] [facility] [address] [id number] [place] [address] Mar, [facility] [place] [facility] [address] [id number] [place] [address] Mar, [facility] [place] [facility] [address] [id number] [place] [address] Mar, [facility] [place] [facility] [address] [id number] [place] [address] Mar, [facility] [place] [facility] [address] [id number] [place] [address] Feb, [facility] [place] [facility] [address] [id number] [place] [address] Feb, [facility] [place] [facility] [address] [id number] [place] [address]- [address] Feb, [facility] [place] [facility] [address] [id number] [place] [address] Feb, [facility] [place] [address] [id number] [place] [address] Feb, [facility] [place] [facility] [address] [id number] [place] [address] Feb, [facility] [place] [facility] [address] [id number] [place] [address] Feb, [facility] [address] [id number] [place] [address] Feb, [facility] [address] [id number] [place] [address] Feb, [facility] [address] [id number] [place] [address] January, [facility] [address] [id number] [place] [address] January, [facility] [address] [id number] [place] [address]- [address] January, [facility] [address] [id number] [place] [address]- 6[address] January, [facility] [address] [id number] [place] [address]- [address] January, [facility] [address] [id number] [place] [address]- [address] January, [facility] [address] [id number] [place] [address] January, [facility] [address] [id number] [place] [address]- [address] January, [facility] [address] [id number] [place] [address]- 74[address] January, [facility] [address] [id number] [place] [address]- [address] January, [facility] [address] [id number] [place] [address]- [address] Dec, [facility] [address] [id number] [place] [address]- [address]163 Dec, [facility] [address] [id number] [place] [address]- 1581 Dec, [facility] [address] [id number], [place] [address] Dec, [facility] [id number] [place] [address] Dec, [facility] [id number] [address] Dec, [facility] [id number] [place] [address] Nov, [facility] [id number] [place] [address]- [address]46 Nov, [facility] [id number] [place] [address]- [address]46 Nov, [facility] [id number] [place] [address]- [address]46 Oct, [facility] [id number] [place] [address]- [address]46 Oct, [facility] [id number] [address] Oct, [facility] [id number] [place] [address]- [address]46 Oct, [facility] [id number] [address] Oct, [facility] [id number] [place] [address]- [address] Jun, IMMUNIZATIONS Vaccine Route Administration Date Status DEPO MEDROL 80 MG/ML IM Intramuscular April 07, 2017 Administered SOCIAL HISTORY Never Assessed REASON FOR VISIT back pain. Pt gets steroid injections in his back. He also had a parasite in his urine about a month ago. , Pt would like a sore looked at on his back. Would like some bactroban ointment for the sore and his legs. KR uby< RMA PLAN OF CARE Activity Details Follow Up prn Reason: VITAL SIGNS Height 71 in 2017-04-07 Weight 152 lbs 2017-04-07 Temperature 98.9 degrees Fahrenheit 2017-04-07 Heart Rate 80 bpm 2017-04-07 Respiratory Rate 20 2017-04-07 BMI 21.20 kg/m2 2017-04-07 Blood pressure systolic 98 mmHg 2017-04-07 Blood pressure diastolic 78 mmHg 2017-04-07 MEDICATIONS Medication Instructions Dosage Frequency Start Date End Date Duration Status Nebulizer 1 inhalation DX-COPD PRN as directed Mar, 99 days Active Diclofenac Sodium 75 MG Orally Twice a day 1 tablet by Oral route 2 times per day PRN for pain 12h Oct, Active Advair HFA 115-21 mcg/actuation Inhalation Twice a day 2 puffs by Inhalation route 2 times per day 12h Oct, 30 days Active Fexofenadine-Pseudoephed ER 180-240 MG Orally Once a day 1 tablet 24h Mar, Apr, 30 day(s) Active HydrOXYzine HCl 25 MG Orally 2 times a day prn 1 tablet 30 Active SSD 1 % APPLY TO AFFECTED AREA TWICE DAILY NEEDED 10 Active Ventolin HFA 108 (90 Base) MCG/ACT Inhalation every 6 hrs 2 puffs as needed 6h Oct, Active Albuterol Sulfate (2.5 MG/3ML) 0.083% USE ONE VIAL PER NEBULIZER TWICE DAILY 13 Active Metoprolol Succinate 25 mg orally Once a day 1 tablet 24h Active Bactroban 2 % Externally Three times a day 1 application to affected area 8h Nov, Active Gabapentin 300 MG Orally 2 times a day TAKE ONE CAPSULE BY MOUTH TWICE DAILY 12h 30 Active RESULTS Name Result Date Reference Range CULTURE, URINE 2017-04-07 Urine Culture, Routine Final report Result 1 UA LONG DIP (IN HOUSE) 2017-04-07 Lot # [id number] Exp date 12/2017 Clarity clear Color yellow Odor no GLU NEG JAYE NEG KET NEG SG 1.005 BLO 3+ pH 6.0 Protein NEG URO 0.2 NIT NEG LUCY 1+ Lot # Exp date PROCEDURES Procedure Date Ordered Result Body Site DEPO MEDROL 80 MG/ML April 07, 2017 THER/PROPH/DIAG INJ, SC/IM April 07, 2017 [facility] April 07, 2017 URINALYSIS, AUTO, W/O SCOPE April 07, 2017 [facility] VISIT ESTABLISHED PATIENT April 07, 2017 INSTRUCTIONS MEDICATIONS ADMINISTERED No Known Medications MEDICAL [...]
--- OUTSIDE RECORDS SUMMARY | 2018-02-07 20:31 | XMS REPORT ---
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 Active 9775663 Problem Pain in left shoulder M25.512 Active 62997347 Problem Back pain M54.9 Active 506581270 Problem Socially inappropriate behavior F99 Active 929162738 Problem Amphetamine abuse F15.10 Active 24083055 ALLERGIES No Information ENCOUNTERS Encounter Location Date Diagnosis [facility] [id number] [address] Dec, [facility] [id number] [place] [address] 98600- 0782 Nov, [facility] [id number] [address] Sep, [facility] [id number] [address] Aug, [facility] [id number] [address] 87[address] Aug, [facility] [id number] [place] [address] 35929- 9329 Jul, [facility] [id number] [address] Jul, Back pain M54.9 [facility] [id number] [place] [address] 34503- 8538 Jul, [facility] [id number] [place] [address] 61341- 1483 Jun, [facility] [id number] [place] [address] 79767- 5367 Jun, [facility] [address] [address]- 8737 Jun, Arthritis M19.90 ; Pain in left shoulder M25.512 and Lumbar back pain M54.5 [facility] [id number] [place] [address] 93421- 1854 May, [facility] [id number] [place] [address] 30139- 5620 Apr, [facility] [id number] [place] [address] 04591- 2383 Apr, [facility] [id number] [place] [address] 77890- 2095 Apr, Essential hypertension I10 and Arthritis M19.90 [facility] [id number] [place] [address] 79320- 9422 Apr, [facility] [id number] [place] [address] 12047- 9001 Mar, [facility] [id number] [place] [address] 85925- 7731 Mar, Lumbar pain M54.5 ; 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 ; Allergic rhinitis, unspecified allergic rhinitis type J30.9 and Hematuria R31.9 [facility] [id number] [place] [address] 66703- 2917 Mar, [facility] [id number] [place] [address] 85182 -5639 January, Open bite, right lower leg, initial encounter S81.851A and Pain in left shoulder M25.512 [facility] [id number] [place] [address] 67596 -5997 Dec, [facility] [id number] [place] [address] 21571 -4838 Dec, Low back pain M54.5 [place] [address] 53702- 2851 Aug, [facility] [address] 40162 -7394 Apr, Perforated left tympanic membrane on examination H72.92 and Deafness in left ear H91.92 [place] [address] 00182- 9279 Apr, [facility] [id number] [place] [address] 11437- 1060 Mar, Lumbar back pain M54.5 ; Essential hypertension I10 ; Chronic obstructive pulmonary disease, unspecified COPD type J44.9 ; Anxiety F41.9 ; Long-term use of high-risk medication Z79.899 and Socially inappropriate behavior F99 [place] [id number] [place] [address] 43725- 5249 Mar, [facility] [id number] [place] [address] 31740- 9923 Mar, Low back pain M54.5 [facility] [id number] [place] [address] 82955- 0392 Mar, [facility] [id number] [place] [address] 71916- 4974 Mar, [place] [address] 21065- 8113 Feb, Impingement syndrome, shoulder, left M75.42 and Superior glenoid labrum lesion of left shoulder, subsequent encounter S43.432D [place] [address] 78275- 9114 January, [facility] [id number] [place] [address] 51363- 1384 January, [facility] [address] 10315- 9576 January, [facility] [id number] [place] [address] 05422- 7815 Dec, Impingement syndrome, shoulder, left M75.42 [place] [address] 69528- 9977 Dec, [facility] [address] 71074- 7583 Nov, [place] [address] 42156- 0353 Nov, Essential hypertension I10 ; Pain in left shoulder M25.512 ; Amphetamine abuse F15.10 and Callus of foot L84 [place] [address] 27489- 2230 Nov, Shoulder pain, left M25.512 [place] [address] 99582- 4097 Nov, [facility] [address] 11354- 5028 Nov, [facility] [id number] [place] [address] 54315- 0444 Nov, Allergic rhinitis, unspecified allergic rhinitis type J30.9 ; Right wrist pain M25.531 ; Back pain M54.9 and Essential hypertension I10 [place] [address] 31061- 4524 Nov, [place] [address] 43921- 5184 Oct, [facility] [address] 42809- 5505 03 Feb, 2016 Tobacco abuse Z72.0 ; Lumbar back pain M54.5 and Foot callus L84 [facility] [id number] [place] [address] 67813- 7542 Sep, [place] [address] 74629- 7631 Sep, Lumbar pain M54.5 ; Essential hypertension I10 ; COPD ( chronic obstructive pulmonary disease) J44.9 ; Anxiety F41.9 and Allergic rhinitis, unspecified allergic rhinitis type J30.9 [place] [id number] [place] [address] 96050- 6303 Aug, [place] [address] 50546- 4832 Aug, [place] [address] 42407- 3697 Jul, [place] [address] 30821- 9247 Jul, Lumbar back pain M54.5 ; Essential hypertension I10 ; COPD ( chronic obstructive pulmonary disease) J44.9 ; Anxiety F41.9 and Allergic rhinitis J30.9 [place] [address] 69777- 7110 Apr, Positive urine drug screen 796.0 and Chronic lumbar pain 724.2 [place] [address] 37753- 8367 Apr, [facility] [id number] [place] [address] 89720- 5442 Apr, [place] [address] 59050- 4339 Apr, [place] [address] 07120- 1932 Apr, Lumbago 724.2 ; Unspecified viral hepatitis C without hepatic coma 070.70 ; Unspecified disorder of skin and subcutaneous tissue 709.9 and Long-term use of high-risk medication V58.69 [facility] [id number] [place] [address] 41660- 7240 Mar, Vision changes 368.9 ; Allergic rhinitis 477.9 and Callus of foot 700 [facility] [id number] [place] [address] 32139- 8317 Mar, [facility] [id number] [place] [address] 56209- 0531 Mar, Chronic airway obstruction, not elsewhere classified 496 ; Essential hypertension, benign 401.1 ; Lumbago 724.2 ; Insomnia, unspecified 780.52 ; Anxiety state, unspecified 300.00 and Unspecified disorder of skin and subcutaneous tissue 709.9 [facility] [id number] [place] [address] [id number] Mar, Dental examination V72.2 [place] [id number] [place] [address] 72706- 5366 Mar, [facility] [id number] [place] [address] 46820- 4795 Feb, Amphetamine and other psychostimulant dependence, unspecified abuse 304.40 [place] [id number] [place] [address] 60920- 7388 Feb, Chronic airway obstruction, not elsewhere classified 496 ; Back pain 724.5 and Hypertension 401.9 [place] [id number] [place] [address] 15763- 0776 January, Chronic airway obstruction, not elsewhere classified 496 ; Unspecified disorder of skin and subcutaneous tissue 709.9 ; Lumbago 724.2 ; Essential hypertension, benign 401.1 ; Foot callus 700 and Allergic rhinitis 477.9 [facility] [id number] [place] [address] 66882- 3703 January, [facility] [id number] [place] [address] 72002- 2105 January, [place] [id number] [place] [address]- 7545 14 Dec, 2014 [facility] [place] [facility] [address] [id number] [place] [address]- 0256 13 Dec, 2014 [facility] [place] [facility] [address] [id number] [place] [address]- 3486 27 Nov, 2014 [facility] [place] [facility] [address] [id number] [place] [address]- 3502 27 Nov, 2014 [facility] [place] [facility] [address] [id number] [place] [address]- 9646 20 Nov, 2014 [facility] [place] [facility] [address] [id number] [place] [address]- 8313 20 Nov, 2014 [facility] [place] [facility] [address] [id number] [place] [address]- 3352 17 Nov, 2014 [facility] [place] [facility] [address] [id number] [place] [address]- 7768 17 Nov, 2014 [facility] [place] [facility] [address] [id number] [place] [address]- 4931 16 Nov, 2014 [facility] [place] [facility] [address] [id number] [place] [address]- 7745 Nov, [facility] [place] [facility] [address] [id number] [place] [address]- 4335 Nov, [facility] [place] [facility] [address] [id number] [place] [address]- 9774 Oct, 2014 [facility] [place] [facility] [address] [id number] [place] [address]- 4096 Oct, [facility] [place] [facility] [address] [id number] [place] [address]- 7056 17 Oct, 2014 [facility] [place] [facility] [address] [id number] [place] [address]- 2546 17 Oct, 2014 [facility] [place] [facility] [address] [id number] [place] [address]- 1073 Oct, 2014 [facility] [place] [facility] [address] [id number] [place] [address]- 1468 Oct, 2014 [facility] [place] [facility] [address] [id number] [place] [address]- 3211 Oct, 2014 [facility] [place] [facility] [address] [facility] [id number] [place] [address]- 1723 Oct, 2014 [facility] [place] [facility] [address] [facility] [id number] [place] [address]- 8465 Oct, 2014 [facility] [place] [facility] [address] [id number] [place] [address]- 2094 Oct, 2014 [facility] [place] [facility] [address] [facility] [id number] [place] [address]- 7558 Oct, 2014 [facility] [place] [facility] [id number] [place] [address]- 6876 Oct, 2014 [facility] [place] [facility] [address] [facility] [id number] [place] [address]- 3441 Oct, [facility] [place] [facility] [address] [facility] [id number] [place] [address]- 1232 Sep, [facility] [place] [facility] [address] [facility] [id number] [place] [address]- 5730 Sep, [facility] [place] [facility] [address] [facility] [id number] [place] [address]- 7566 Sep, [facility] [place] [facility] [address] [facility] [id number] [address]- 3822 Sep, [facility] [place] [facility] [address] [facility] [id number] [place] [address]- 6235 Sep, [facility] [place] [facility] [address] [facility] [id number] [place] [address]- 1757 Sep, [facility] [place] [facility] [id number] [address]- 4000 Sep, [facility] [place] [facility] [address] [id number] [place] [address]- 0370 Sep, [facility] [place] [facility] [address] [id number] [place] [address]- 7146 Aug, [facility] [place] [facility] [address] [id number] [place] [address]- 6026 Aug, [facility] [place] [facility] [address] [id number] [place] [address]- 3796 Aug, [facility] [place] [facility] [address] [id number] [place] [address]- 8904 Aug, [facility] [place] [facility] [address] [id number] [place] [address]- 9632 Aug, [facility] [place] [facility] [address] [id number] [place] 6504 Aug, [facility] [place] [facility] [address] [id number] [place] [address]- 1450 Aug, [facility] [place] [facility] [address] [id number] [place] [address]- 8660 Aug, [facility] [place] [facility] [address] [id number] [place] [address]- 3820 Aug, [facility] [place] [facility] [address] [id number] [place] 1549 Aug, [facility] [place] [facility] [address] [id number] [place] 6916 Aug, [facility] [place] [facility] [address] [id number] [place] [address]- 6126 Aug, [facility] [place] [facility] [address] [id number] [place] [address]- 4976 Aug, [facility] [place] [facility] [address] [id number] [place] [address]- 9606 Aug, [facility] [place] [facility] [address] [id number] [place] [address] Aug, [facility] [place] [facility] [address] [id number] [place] 6821 Aug, [facility] [place] [facility] [address] [id number] [place] [address]- 7542 Jul, [facility] [place] [facility] [address] [id number] [place] [address]- 7857 Jul, [facility] [place] [facility] [address] [id number] [place] [address]- 8467 Jul, [facility] [place] [facility] [address] [id number] [place] [address]- 0154 Jul, [facility] [place] [facility] [address] [id number] [place] [address]- 8947 Jul, [facility] [place] [facility] [address] [id number] [place] [address]- 2051 Jul, [facility] [place] [facility] [address] [id number] [address]- 1777 Jun, [facility] [place] [facility] [address] [id number] [place] [address]- 3645 Jun, [facility] [place] [facility] [address] [id number] [place] [address]- 8376 Jun, [facility] [place] [facility] [address] [id number] [place] [address]- 9749 Jun, [facility] [place] [facility] [address] [id number] [place] [address]- 6372 Jun, [facility] [place] [facility] [address] [id number] [place] [address]- 9357 Jun, [facility] [place] [facility] [address] [id number] [place] 5432 Jun, [facility] [place] [facility] [address] [id number] [place] [address]- 2975 Jun, [facility] [place] [facility] [address] [id number] [place] 0109 Jun, 2013 [facility] [place] [facility] [address] [id number] [place] [address]- 1244 Jun, 2013 [facility] [place] [facility] [address] [id number] [place] 9643 Jun, 2013 [facility] [place] [facility] [address] [id number] [place] [address]- 5970 Jun, 2013 [facility] [place] [facility] [address] [id number] [place] [address]- 3496 Jun, 2013 [facility] [place] [facility] [address] [id number] [place] 6783 Jun, 2013 [facility] [place] [facility] [address] [id number] [place] [address]- 5059 Jun, 2013 [facility] [place] [facility] [address] [id number] [place] [address]- 6511 Jun, 2013 [facility] [place] [facility] [address] [id number] [place] [address]- 8101 Jun, 2013 [facility] [place] [facility] [address] [id number] [place] [address]- 9232 Jun, 2013 [facility] [place] [facility] [address] [id number] [place] [address]- 9627 Jun, 2013 [facility] [place] [facility] [address] [id number] [place] [address]- 0427 Jun, 2013 [facility] [place] [facility] [address] [id number] [place] [address]- 4344 Jun, 2013 [facility] [place] [facility] [address] [id number] [place] [address]- 0757 Jun, 2013 [facility] [place] [facility] [address] [id number] [place] 4273 Jun, 2013 [facility] [place] [facility] [address] [id number] [place] [address]- 1194 29 May, 2014 [facility] [place] [facility] [address] [id number] [place] [address]- 5619 29 May, 2013 [facility] [place] [facility] [address] [id number] [place] [address]- 2361 May, [facility] [place] [facility] [address] [id number] [place] [address]- 0336 May, [facility] [place] [facility] [address] [id number] [place] [address]- 5013 May, [facility] [place] [facility] [address] [id number] [place] [address]- 4347 May, [facility] [place] [facility] [address] [id number] [place] [address]- 4429 May, [facility] [place] [facility] [address] [id number] [place] [address]- 9350 May, [facility] [place] [facility] [address] [id number] [place] [address]- 2889 Apr, [facility] [place] [facility] [address] [id number] [place] [address]- 9912 Apr, [facility] [place] [facility] [address] [id number] [place] [address]- 0868 Apr, [facility] [place] [facility] [address] [id number] [place] [address]- 6380 Apr, [facility] [place] [facility] [address] [id number] [place] [address]- 0754 Apr, [facility] [place] [facility] [address] [id number] [place] [address]- 3632 Apr, [facility] [place] [facility] [address] [id number] [place] [address]- 3360 Apr, [facility] [place] [facility] [address] [id number] [place] [address]- 6287 Apr, [facility] [place] [facility] [address] [id number] [place] [address]- 1990 Apr, [facility] [place] [facility] [address] [id number] [place] [address]- 5152 Apr, [facility] [place] [facility] [address] [id number] [place] [address]- 9437 Apr, [facility] [place] [facility] [address] [id number] [place] [address]- 5064 Apr, [facility] [place] [facility] [address] [id number] [place] [address]- 5447 Apr, [facility] [place] [facility] [address] [id number] [place] [address]- 8531 Apr, [facility] [place] [facility] [address] [id number] [place] [address]- 7252 Apr, [facility] [place] [facility] [address] [id number] [place] [address]- 3986 Apr, [facility] [place] [facility] [address] [id number] [place] [address]- 4183 Apr, [facility] [place] [facility] [address] [id number] [place] [address]- 6140 Apr, [facility] [place] [facility] [address] [id number] [place] [address]- 1730 Apr, [facility] [place] [facility] [address] [id number] [place] [address]- 4839 Apr, [facility] [place] [facility] [address] [id number] [place] [address]- 9040 Apr, [facility] [place] [facility] [address] [id number] [place] [address]- 5142 Apr, [facility] [place] [facility] [address] [id number] [place] [address]- 3795 Mar, [facility] [place] [facility] [address] [id number] [place] [address]- 4204 Mar, [facility] [place] [facility] [address] [id number] [place] [address] Mar, [facility] [place] [facility] [address] [id number] [place] [address] Mar, [facility] [place] [facility] [address] [id number] [place] [address] Mar, [facility] [place] [facility] [address] [id number] [place] [address] Mar, [facility] [place] [facility] [address] [id number] [place] [address] Mar, [facility] [place] [facility] [address] [id number] [place] [address] Mar, [facility] [place] [facility] [address] [id number] [place] [address] Feb, [facility] [facility] [address] [id number] [place] [address] Feb, [facility] [facility] [address] [id number] [place] [address] Feb, [facility] [place] [facility] [address] [id number] [place] [address] Feb, [facility] [place] [facility] [address] [id number] [place] [address] Feb, [facility] [facility] [address] [id number] [place] [address] Feb, [facility] [place] [facility] [address] [id number] [place] [address] Feb, [facility] [place] [facility] [address] [id number] [place] [address] January, [facility] [place] [facility] [address] [id number] [place] [address] January, [facility] [place] [facility] [address] [id number] [place] [address] January, [facility] [place] [facility] [address] [id number] [place] [address] January, [facility] [place] [facility] [address] [id number] [place] [address] Dec, [facility] [place] [facility] [address] [id number] [place] [address] Dec, [facility] [place] [facility] [address] [id number] [place] [address] Dec, [facility] [place] [facility] [address] [id number] [place] [address] Dec, [facility] [place] [facility] [address] [id number] [place] [address] Dec, [facility] [place] [facility] [address] [id number] [place] [address] Dec, [facility] [place] [facility] [address] [id number] [place] [address] Dec, [facility] [place] [facility] [address] [id number] [place] [address] Dec, [facility] [place] [facility] [address] [id number] [place] [address] Dec, [facility] [place] [address] [id number] [place] [address] Dec, [facility] [place] [facility] [address] [id number] [place] [address] Nov, [facility] [place] [facility] [address] [id number] [place] [address] Nov, [facility] [place] [facility] [address] [id number] [place] [address]- [address] Nov, [facility] [place] [facility] [address] [id number] [place] [address] Nov, [facility] [place] [facility] [address] [id number] [place] [address] Oct, [facility] [address] [id number] [place] [address]- [address] Oct, [facility] [address] [id number] [place] [address] Oct, [facility] [place] [facility] [address] [id number] [place] [address]- [address] Oct, [facility] [place] [facility] [address] [id number] [place] [address] Oct, [facility] [place] [facility] [address] [id number] [place] [address] Oct, [facility] [place] [facility] [address] [facility] [id number] [place] [address] Oct, [facility] [facility] [address] [facility] [id number] [place] [address]- [address] Oct, [facility] [place] [address] [facility] [id number] [place] [address]- [address] Sep, [facility] [address] [facility] [id number] [place] [address]- [address] Sep, [facility] [address] [facility] [id number] [place] [address] Sep, [facility] [address] [facility] [id number] [place] [address] Sep, [facility] [address] [id number] [place] [address] Aug, [facility] [place] [facility] [address] [id number] [place] [address] Aug, [facility] [facility] [address] [facility] [id number] [place] [address] Aug, [facility] [address] [facility] [id number] [place] [address]- [address] Aug, [facility] [place] [facility] [address] [id number] [place] [address]- [address] Jul, [facility] [place] [facility] [address] [id number] [place] [address]- [address] Jul, [facility] [place] [facility] [address] [id number] [place] [address]- [address] Jul, [facility] [place] [facility] [address] [id number] [place] [address]- [address] Jul, [facility] [place] [facility] [address] [id number] [place] [address] Jun, [facility] [place] [facility] [address] [id number] [place] [address] Jun, [facility] [place] [facility] [address] [id number] [place] [address] Jun, [facility] [place] [facility] [address] [id number] [place] [address] Jun, [facility] [place] [facility] [address] [id number] [place] [address] Jun, [facility] [place] [facility] [address] [id number] [place] [address] Jun, [facility] [place] [facility] [address] [id number] [place] [address] 08 Jun, 2013 [facility] [place] [facility] [address] [id number] [place] [address] 17 May, 2013 [facility] [place] [facility] [address] [id number] [place] [address] May, [facility] [place] [facility] [address] [id number] [place] [address] May, [facility] [place] [facility] [address] [id number] [place] [address] Apr, [facility] [place] [facility] [address] [id number] [place] [address] Apr, [facility] [place] [facility] [address] [id number] [place] [address] Apr, [facility] [place] [facility] [address] [id number] [place] [address] Apr, [facility] [place] [facility] [address] [id number] [place] [address] Apr, [facility] [place] [facility] [address] [id number] [place] [address] Mar, [facility] [place] [facility] [address] [id number] [place] [address] Mar, [facility] [place] [facility] [address] [id number] [place] [address] Mar, [facility] [place] [facility] [address] [id number] [place] [address] Mar, [facility] [place] [facility] [address] [id number] [place] [address] Mar, [facility] [place] [facility] [address] [id number] [place] [address] Mar, [facility] [place] [facility] [address] [id number] [place] [address] Feb, [facility] [place] [facility] [address] [id number] [place] [address] Feb, [facility] [place] [facility] [address] [id number] [place] [address] Feb, [facility] [place] [facility] [address] [id number] [place] [address] Feb, [facility] [place] [facility] [address] [id number] [place] [address] Feb, [facility] [place] [facility] [address] [id number] [place] [address] Feb, [facility] [place] [facility] [address] [id number] [place] [address] Feb, [facility] [address] [id number] [place] [address] Feb, [facility] [place] [facility] [address] [id number] [place] [address] [address] Feb, [facility] [address] [id number] [place] [address] January, [facility] [address] [id number] [place] [address] January, [facility] [address] [id number] [place] [address] [address] January, [facility] [address] [id number] [place] [address] January, [facility] [address] [id number] [place] [address] January, [facility] [address] [id number] [place] [address] January, [facility] [address] [id number] [place] [address] [address] January, [facility] [address] [id number] [place] [address]236 January, [facility] [address] [id number] [place] [address] [address] January, [facility] [address] [id number] [place] [address] January, [facility] [place] [facility] [address] [id number] [place] [address] Dec, [facility] [place] [facility] [address] [id number] [place] [address] Dec, [facility] [place] [facility] [address] [id number] [place] [address] Dec, [facility] [id number] [address] Dec, [facility] [id number] [place] [address] Dec, [facility] [id number] [place] [address] Dec, [facility] [address] [id number] [place] [address] Nov, [facility] [id number] [place] [address] Nov, [facility] [id number] [place] [address] Nov, [facility] [id number] [place] [address] Oct, [facility] [id number] [place] [address] Oct, [facility] [id number] [place] [address] Oct, [facility] [id number] [place] [address] Oct, [facility] [id number] [place] [address] Oct, [facility] [id number] [place] [address] Jun, IMMUNIZATIONS No Known Immunizations SOCIAL HISTORY Never Assessed REASON FOR VISIT Requests return call PLAN OF CARE VITAL SIGNS MEDICATIONS Unknown [...]
--- OUTSIDE RECORDS SUMMARY | 2018-02-07 20:31 | XMS REPORT ---
Author Author FRANK MULLINS [facility] Address [address] [place] [address] Care Team Providers Care Wilton Weaver Name Role Phone FRANK MULLINS Unavailable PROBLEMS Type Condition ICD9-CM Code RNB43-OL Code Onset Dates Condition Status SNOMED Code Problem COPD (chronic obstructive pulmonary disease) J44.9 Active 94214139 Problem Essential hypertension I10 Active 58824029 Problem Anxiety F41.9 Active 70801985 Problem Arthritis M19.90 Active 6022020 Problem 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 Active 3382685 Problem Pain in left shoulder M25.512 Active 94754262 Problem Back pain M54.9 Active 494106302 Problem Socially inappropriate behavior F99 Active 620341123 Problem Amphetamine abuse F15.10 Active 48667819 ALLERGIES Substance Reaction Event Type Date Status Sulfamethoxazole-Trimethoprim Unknown Drug Allergy January, Active SOCIAL HISTORY Never Assessed PLAN OF CARE VITAL SIGNS Height 71 in 2017-01-25 Weight 150.8 lbs 2017-01-25 Temperature 98.0 degrees Fahrenheit 2017-01-25 Heart Rate 74 bpm 2017-01-25 Respiratory Rate 20 2017-01-25 BMI 21.03 kg/m2 2017-01-25 Blood pressure systolic 110 mmHg 2017-01-25 Blood pressure diastolic 68 mmHg 2017-01-25 MEDICATIONS Medication Instructions Dosage Frequency Start Date End Date Duration Status Augmentin 875-125 MG Orally every 12 hrs 1 tablet 12h January,January 10 day(s) Active RESULTS No Results PROCEDURES Procedure Date Ordered Result Body Site [facility] VISIT ESTABLISHED PATIENT January 25, 2017 THER/PROPH/DIAG INJ, SC/IM January 25, 2017 TORADOL (IM) 60 MG/2ML (UP TO 15 MG) January 25, 2017 IMMUNIZATIONS Vaccine Route Administration Date Status TORADOL (IM) 60 MG/2ML (UP TO 15 MG) IM Intramuscular January 25, 2017 Administered MEDICAL (GENERAL) HISTORY Type Description Date Medical [...]
--- OUTSIDE RECORDS SUMMARY | 2018-02-07 20:31 | XMS REPORT ---
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 Active 1055514 Problem Pain in left shoulder M25.512 Active 04926186 Problem Back pain M54.9 Active 163905832 Problem Socially inappropriate behavior F99 Active 102832282 Problem Amphetamine abuse F15.10 Active 28076248 ALLERGIES No Information ENCOUNTERS Encounter Location Date Diagnosis [facility] [id number] [place] [address] 35259- 4806 Nov, [facility] [id number] [place] [address] 38782- 2537 Sep, [facility] [id number] [place] [address] 08907- 7026 Aug, [facility] [id number] [place] [address] 58771- 9054 Aug, [facility] [id number] [place] [address] 71417- 5906 Jul, [facility] [id number] [place] [address] 17216 -2014 Jul, Back pain M54.9 [facility] [id number] [place] [address] 72012- 4051 Jul, [facility] [address] [place] [address]- 0278 Jun, [facility] [id number] [place] [address] 35270- 1511 Jun, [facility] [id number] [place] [address] 52865- 2049 Jun, Arthritis M19.90 ; Pain in left shoulder M25.512 and Lumbar back pain M54.5 [facility] [id number] [place] [address] 00355- 1896 May, [facility] [id number] [place] [address] 03879- 4087 Apr, [place] [id number] [place] [address] 82846- 9136 Apr, [facility] [id number] [place] [address] 02596- 3256 Apr, Essential hypertension I10 and Arthritis M19.90 [facility] [id number] [place] [address] 66099- 5693 Apr, [facility] [id number] [place] [address] 75133- 1498 Mar, [facility] [id number] [place] [address] 05341- 4031 Mar, Lumbar pain M54.5 ; 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 ; Allergic rhinitis, unspecified allergic rhinitis type J30.9 and Hematuria R31.9 [facility] [id number] [place] [address] 78932- 9987 Mar, [facility] [id number] [place] [address] 87197 -0348 January, Open bite, right lower leg, initial encounter S81.851A and Pain in left shoulder M25.512 [facility] [id number] [place] [address] 51039 -6242 Dec, [facility] [address] [address] Dec, Low back pain M54.5 [facility] [id number] [place] [address] 90668- 4187 Aug, [facility] [id number] [place] [address] 81237 -7430 Apr, Perforated left tympanic membrane on examination H72.92 and Deafness in left ear H91.92 [facility] [id number] [place] [address] 86791- 8459 Apr, [place] [id number] [place] [address] 87235- 2642 Mar, Lumbar back pain M54.5 ; Essential hypertension I10 ; Chronic obstructive pulmonary disease, unspecified COPD type J44.9 ; Anxiety F41.9 ; Long-term use of high-risk medication Z79.899 and Socially inappropriate behavior F99 [place] [id number] [place] [address] 22757- 3801 Mar, [facility] [place] [id number] [place] [address] 42266- 5349 Mar, Low back pain M54.5 [facility] [id number] [place] [address] 69699- 0163 Mar, [facility] [id number] [place] [address] 56112- 6667 Mar, [facility] [id number] [place] [address] 25484- 6443 Feb, Impingement syndrome, shoulder, left M75.42 and Superior glenoid labrum lesion of left shoulder, subsequent encounter S43.432D [facility] [id number] [place] [address] 23405- 3551 January, [facility] [id number] [place] [address] 79299- 4544 January, [place] [id number] [place] [address] 98121- 0710 January, [facility] [address] 04673- 9768 Dec, Impingement syndrome, shoulder, left M75.42 [place] [address] 46359- 1453 Dec, [facility] [address] 98640- 6737 Nov, [facility] [id number] [place] [address] 54979- 0319 Nov, Essential hypertension I10 ; Pain in left shoulder M25.512 ; Amphetamine abuse F15.10 and Callus of foot L84 [place] [facility] [id number] [place] [address] 76075- 9179 Nov, Shoulder pain, left M25.512 [facility] [id number] [place] [address] 91844- 1151 Nov, [place] [facility] [id number] [place] [address] 09847- 6925 Nov, [facility] [facility] [id number] [place] [address] 34005- 1946 Nov, Allergic rhinitis, unspecified allergic rhinitis type J30.9 ; Right wrist pain M25.531 ; Back pain M54.9 and Essential hypertension I10 [facility] [id number] [place] [address] 44865- 0161 Nov, [place] [facility] [id number] [place] [address] 39618- 8509 Oct, [facility] [facility] [id number] [place] [address] 31527- 2178 Oct, Tobacco abuse Z72.0 ; Lumbar back pain M54.5 and Foot callus L84 [place] [address] 20655- 5200 Sep, [facility] [id number] [place] [address] 78562- 8695 Sep, Lumbar pain M54.5 ; Essential hypertension I10 ; COPD ( chronic obstructive pulmonary disease) J44.9 ; Anxiety F41.9 and Allergic rhinitis, unspecified allergic rhinitis type J30.9 [facility] [id number] [place] [address] 48212- 4600 Aug, [place] [id number] [place] [address] 80131- 0325 Aug, [place] [address] 12575- 4300 Jul, [place] [id number] [place] [address] 19656- 3006 Jul, Lumbar back pain M54.5 ; Essential hypertension I10 ; COPD ( chronic obstructive pulmonary disease) J44.9 ; Anxiety F41.9 and Allergic rhinitis J30.9 [place] [id number] [place] [address] 15134- 7509 Apr, Positive urine drug screen 796.0 and Chronic lumbar pain 724.2 [place] [id number] [place] [address] 13787- 0004 Apr, [place] [id number] [place] [address] 90440- 4480 Apr, [place] [id number] [place] [address] 04597- 2633 Apr, [place] [id number] [place] [address] 11433- 2830 Apr, Lumbago 724.2 ; Unspecified viral hepatitis C without hepatic coma 070.70 ; Unspecified disorder of skin and subcutaneous tissue 709.9 and Long-term use of high-risk medication V58.69 [place] [facility] [id number] [place] [address] 35201- 5274 Mar, Vision changes 368.9 ; Allergic rhinitis 477.9 and Callus of foot 700 [facility] [id number] [place] [address] 63849- 3587 Mar, [facility] [id number] [place] [address] 06024- 8199 Mar, Chronic airway obstruction, not elsewhere classified 496 ; Essential hypertension, benign 401.1 ; Lumbago 724.2 ; Insomnia, unspecified 780.52 ; Anxiety state, unspecified 300.00 and Unspecified disorder of skin and subcutaneous tissue 709.9 [facility] [id number] [place] [address] [id number] Mar, Dental examination V72.2 [facility] [id number] [place] [address] 79330- 0801 Mar, [facility] [id number] [place] [address] 22741- 1666 Feb, Amphetamine and other psychostimulant dependence, unspecified abuse 304.40 [facility] [id number] [place] [address] 81204- 6906 Feb, Chronic airway obstruction, not elsewhere classified 496 ; Back pain 724.5 and Hypertension 401.9 [facility] [id number] [place] [address] 09333- 2974 January, Chronic airway obstruction, not elsewhere classified 496 ; Unspecified disorder of skin and subcutaneous tissue 709.9 ; Lumbago 724.2 ; Essential hypertension, benign 401.1 ; Foot callus 700 and Allergic rhinitis 477.9 [facility] [id number] [place] [address] 14952- 9537 January, [facility] [id number] [place] [address] 12625- 9878 January, [facility] [id number] [place] [address] 47568- 2542 Dec, [facility] [address] [place] [address]- 8338 13 Dec, 2014 [facility] [place] [facility] [address] [id number] [place] [address]- 5162 Nov, [facility] [place] [facility] [address] [id number] [place] [address]- 8386 Nov, [facility] [place] [facility] [address] [id number] [place] [address]- 0163 Nov, [facility] [place] [facility] [address] [id number] [place] [address]- 6989 Nov, [facility] [place] [facility] [address] [id number] [place] [address]- 6848 Nov, [facility] [place] [facility] [address] [id number] [place] [address]- 9427 Nov, [facility] [place] [facility] [address] [id number] [place] [address]- 3168 16 Nov, 2014 [facility] [place] [facility] [address] [id number] [place] [address]- 4368 Nov, [facility] [place] [facility] [address] [id number] [place] [address]- 3756 Nov, [facility] [place] [facility] [address] [facility] [id number] [place] [address]- 1316 Oct, 2014 [facility] [place] [facility] [address] [id number] [place] [address]- 3808 Oct, 2014 [facility] [place] [facility] [address] [facility] [id number] [place] [address]- 8604 Oct, 2014 [facility] [place] [facility] [address] [id number] [place] [address]- 5467 Oct, 2014 [facility] [place] [facility] [address] [facility] [id number] [place] [address]- 3306 Oct, 2014 [facility] [place] [facility] [address] [facility] [id number] [place] [address]- 8666 Oct, [facility] [place] [facility] [address] [id number] [place] [address]- 9334 Oct, 2014 [facility] [place] [facility] [address] [id number] [place] [address]- 0491 Oct, 2014 [facility] [place] [facility] [address] [id number] [place] [address]- 8537 Oct, 2014 [facility] [place] [facility] [address] [id number] [place] [address]- 1310 Oct, 2014 [facility] [place] [facility] [address] [id number] [place] [address]- 2510 Oct, [facility] [place] [facility] [address] [id number] [place] [address]- 6836 Oct, [facility] [place] [facility] [address] [id number] [place] [address]- 5535 Oct, [facility] [place] [facility] [address] [id number] [place] [address]- 8314 Sep, [facility] [place] [facility] [address] [id number] [place] [address]- 7600 Sep, [facility] [place] [facility] [address] [id number] [place] [address]- 6886 Sep, [facility] [place] [facility] [address] [id number] [place] [address]- 2136 Sep, [facility] [place] [facility] [address] [id number] [address]- 3259 Sep, [facility] [place] [facility] [address] [id number] [place] [address]- 7633 Sep, [facility] [place] [facility] [address] [id number] [place] [address]- 6407 Sep, [facility] [place] [facility] [address] [id number] [place] [address]- 8938 Sep, [facility] [place] [facility] [address] [id number] [place]- 3518 31 Aug, 2014 [facility] [address] [id number] [place] 3416 Aug, [facility] [place] [facility] [address] [id number] [place] [address]- 2856 Aug, [facility] [place] [facility] [address] [id number] [place] 9656 Aug, [facility] [place] [facility] [address] [id number] [place] [address]- 5418 Aug, [facility] [place] [facility] [address] [id number] [place] [address]- 5825 Aug, [facility] [address] [id number] [place] [address]- 4976 Aug, [facility] [place] [facility] [address] [id number] [place] [address]- 3844 Aug, [facility] [address] [id number] [place] [address]- 0092 Aug, [facility] [place] [facility] [address] [id number] [place] [address]- 3837 Aug, [facility] [address] [id number] [place] [address]- 8990 Aug, [facility] [place] [facility] [address] [id number] [place] [address]- 8130 Aug, [facility] [place] [facility] [address] [id number] [place] [address]- 6445 Aug, [facility] [place] [facility] [address] [id number] [place] 2743 Aug, [facility] [place] [facility] [address] [id number] [place] [id number] Aug, [facility] [place] [facility] [address] [id number] [place] [address]- 8127 Aug, [facility] [place] [facility] [address] [id number] [place] [address]- 1850 Jul, [facility] [place] [facility] [address] [id number] [place] [address]- 5703 Jul, [facility] [place] [facility] [address] [id number] [place] [address]- 0797 Jul, [facility] [place] [facility] [address] [id number] [place] [address]- 3955 Jul, [facility] [place] [facility] [address] [id number] [place] [address]- 8671 Jul, [facility] [place] [facility] [address] [id number] [place] [address]- 8053 Jul, [facility] [place] [facility] [address] [id number] [place] [address]- 2585 Jun, [facility] [place] [facility] [address] [id number] [place] [address]- 4853 Jun, [facility] [place] [facility] [address] [id number] [place] [address]- 2976 Jun, [facility] [place] [facility] [address] [id number] [place] [address]- 6969 Jun, [facility] [place] [facility] [address] [id number] [place] [address]- 3245 Jun, [facility] [place] [facility] [address] [id number], [place] [address]- 3226 Jun, [facility] [place] [facility] [address] [id number] [place] [address]- 7547 Jun, [facility] [place] [facility] [address] [id number] [place] [address]- 4604 Jun, [facility] [place] [facility] [address] [id number], [place] [address]- 8741 Jun, [facility] [place] [facility] [address] [id number], [place] [address]- 6495 Jun, 2013 [facility] [place] [facility] [address] [id number] [place] [address]- 2883 Jun, 2013 [facility] [place] [facility] [address] [id number] [place] 8275 Jun, 2013 [facility] [place] [facility] [address] [id number] [place] [address]- 4773 Jun, 2013 [facility] [place] [facility] [address] [id number] [place] [address]- 7326 Jun, 2013 [facility] [place] [facility] [address] [id number] [place] [address]- 8444 Jun, 2013 [facility] [place] [facility] [address] [id number] [place] [address]- 2836 Jun, 2013 [facility] [place] [facility] [address] [facility] [id number] [place] [address]- 5586 Jun, 2013 [facility] [place] [facility] [address] [id number] [place] [address]- 4626 Jun, 2013 [facility] [place] [facility] [address] [facility] [id number] [place] [address]- 1529 Jun, 2013 [facility] [place] [facility] [address] [facility] [id number] [place] [address]- 9348 Jun, 2013 [facility] [place] [facility] [address] [id number], [place] [address]- 4384 Jun, 2013 [facility] [place] [facility] [address] [id number], [place] [address]- 4702 Jun, [facility] [place] [facility] [address] [id number] [place] 3916 Jun, [facility] [place] [facility] [address] [facility] [id number] [place] [address]- 9385 May, 2013 [facility] [place] [facility] [address] [facility] [id number] [place] [address]- 4646 29 May, 2013 [facility] [place] [facility] [address] [id number] [place] [address]- 6768 May, 2013 [facility] [place] [facility] [address] [id number] [place] [address]- 5053 May, [facility] [place] [facility] [address] [id number] [place] [address]- 8066 May, [facility] [place] [facility] [address] [id number] [place] [address]- 7886 May, [facility] [place] [facility] [address] [id number] [place] [address]- 0201 May, [facility] [place] [facility] [address] [id number] [place] [address]- 5130 May, [facility] [place] [facility] [address] [id number] [place] [address]- 0162 Apr, [facility] [place] [facility] [address] [id number] [place] [address]- 1887 Apr, [facility] [place] [facility] [address] [id number] [place] [address]- 5815 Apr, [facility] [place] [facility] [address] [id number] [place] [address]- 6981 Apr, [facility] [place] [facility] [address] [id number] [place] [address]- 7239 Apr, [facility] [place] [facility] [address] [id number] [place] [address]- 8763 Apr, [facility] [place] [facility] [address] [id number] [place] [address]- 9587 Apr, [facility] [place] [facility] [address] [id number] [place] [address]- 2518 Apr, [facility] [place] [facility] [address] [id number] [place] [address]- 4805 Apr, [facility] [place] [facility] [address] [id number] [place] [address]- 9925 Apr, [facility] [place] [facility] [address] [id number] [place] [address]- 8724 Apr, [facility] [place] [facility] [address] [id number] [place] [address]- 6448 Apr, [facility] [place] [facility] [address] [id number] [place] [address]- 5115 Apr, [facility] [place] [facility] [address] [id number] [place] [address]- 4872 Apr, [facility] [place] [facility] [address] [id number] [place] [address]- 2858 Apr, [facility] [place] [facility] [address] [id number] [place] [address]- 3966 Apr, [facility] [place] [facility] [address] [id number] [place] [address]- 3304 Apr, [facility] [place] [facility] [address] [id number] [place] [address]- 3229 Apr, [facility] [place] [facility] [address] [id number] [place] [address]- 3603 Apr, [facility] [place] [facility] [address] [id number] [place] [address]- 4500 Apr, [facility] [place] [facility] [address] [id number] [place] [address] Apr, [facility] [place] [facility] [address] [id number] [place] [address] Apr, [facility] [place] [facility] [address] [id number] [place] [address] Mar, [facility] [place] [facility] [address] [id number] [place] [address] Mar, [facility] [place] [facility] [address] [id number] [place] [address] Mar, [facility] [place] [facility] [address] [id number] [place] [address] Mar, [facility] [place] [facility] [address] [id number] [place] [address] Mar, [facility] [place] [facility] [address] [id number] [place] [address] Mar, [facility] [place] [facility] [address] [id number] [place] [address] Mar, [facility] [place] [facility] [address] [id number] [place] [address] Mar, [facility] [place] [facility] [address] [id number] [place] [address] Feb, [facility] [place] [facility] [address] [id number] [place] [address] Feb, [facility] [place] [facility] [address] [id number] [place] [address]- [address] Feb, [facility] [place] [facility] [address] [id number] [place] [address] Feb, [facility] [place] [facility] [address] [id number] [place] [address] Feb, [facility] [place] [facility] [address] [id number] [place] [address] Feb, [facility] [place] [facility] [address] [id number] [place] [address] Feb, [facility] [place] [facility] [address] [id number] [place] [address] January, [facility] [place] [facility] [address] [id number] [place] [address] January, [facility] [place] [facility] [address] [id number] [place] [address] January, [facility] [place] [facility] [address] [id number] [place] [address] January, [facility] [place] [facility] [address] [id number] [place] [address] Dec, [facility] [place] [facility] [address] [id number] [place] [address] Dec, [facility] [place] [facility] [address] [id number] [place] [address] Dec, [facility] [place] [facility] [address] [id number] [place] [address] Dec, [facility] [place] [facility] [address] [id number] [place] [address] Dec, [facility] [place] [facility] [address] [id number] [place] [address] Dec, [facility] [place] [facility] [address] [id number] [place] [address] Dec, [facility] [place] [facility] [address] [id number] [place] [address] Dec, [facility] [place] [facility] [address] [id number] [place] [address] Dec, [facility] [place] [facility] [address] [id number] [place] [address] Dec, [facility] [place] [facility] [address] [id number] [place] [address] Nov, [facility] [place] [facility] [address] [id number] [place] [address] Nov, [facility] [place] [facility] [address] [id number] [place] [address]- [address] Nov, [facility] [place] [facility] [address] [id number] [place] [address] Nov, [facility] [place] [facility] [address] [id number] [place] [address] Oct, [facility] [place] [facility] [address] [id number] [place] [address] Oct, [facility] [place] [facility] [address] [id number] [place] [address] Oct, [facility] [place] [facility] [address] [id number] [place] [address] Oct, [facility] [place] [facility] [address] [id number] [place] [address] Oct, [facility] [place] [facility] [address] [id number] [place] [address] Oct, [facility] [place] [facility] [address] [id number] [place] [address]- [address] Oct, [facility] [place] [facility] [address] [id number] [place] [address] Oct, [facility] [place] [facility] [address] [id number] [place] [address]- [address] Sep, [facility] [place] [facility] [address] [id number] [place] [address]- [address] Sep, [facility] [place] [facility] [address] [id number] [place] [address]- [address] Sep, [facility] [place] [facility] [address] [facility] [id number] [place] [address]- [address] Sep, [facility] [place] [facility] [address] [id number] [place] [address]- [address] Aug, [facility] [place] [facility] [address] [id number], [place] [address] Aug, [facility] [place] [facility] [address] [id number] [place] [address]- [address] Aug, [facility] [place] [facility] [address] [id number] [place] [address] Aug, [facility] [place] [facility] [address] [id number], [place] [address] Jul, [facility] [place] [facility] [address] [id number] [place] [address] Jul, [facility] [place] [facility] [address] [id number] [place] [address] Jul, [facility] [place] [facility] [address] [id number] [place] [address] Jul, [facility] [place] [facility] [address] [id number] [place] [address] Jun, [facility] [place] [facility] [address] [id number] [place] [address] Jun, [facility] [place] [facility] [address] [id number] [place] [address] Jun, [facility] [place] [facility] [address] [id number] [place] [address] Jun, [facility] [place] [facility] [address] [id number] [place] [address] Jun, [facility] [place] [facility] [address] [id number] [place] [address] Jun, [facility] [place] [facility] [address] [id number] [place] [address] 08 Jun, 2013 [facility] [place] [facility] [address] [id number] [place] [address] 17 May, 2013 [facility] [place] [facility] [address] [id number] [place] [address] May, [facility] [place] [facility] [address] [id number] [place] [address] May, [facility] [place] [facility] [address] [id number] [place] [address] Apr, [facility] [place] [facility] [address] [id number] [place] [address] Apr, [facility] [place] [facility] [address] [id number] [place] [address] Apr, [facility] [place] [facility] [address] [id number] [place] [address] Apr, [facility] [place] [facility] [address] [id number] [place] [address] Apr, [facility] [place] [facility] [address] [id number] [place] [address] Mar, [facility] [place] [facility] [address] [id number] [place] [address] Mar, [facility] [place] [facility] [address] [id number] [place] [address] Mar, [facility] [place] [facility] [address] [id number] [place] [address] Mar, [facility] [place] [facility] [address] [id number] [place] [address] Mar, [facility] [place] [facility] [address] [id number] [place] [address] Mar, [facility] [place] [facility] [address] [id number] [place] [address] Feb, [facility] [place] [facility] [address] [id number] [place] [address] Feb, [facility] [place] [facility] [address] [id number] [place] [address] Feb, [facility] [place] [facility] [address] [id number] [place] [address] Feb, [facility] [place] [facility] [address] [id number] [place] [address] Feb, [facility] [place] [facility] [address] [id number] [place] [address] Feb, [facility] [place] [facility] [address] [id number] [place] [address] Feb, [facility] [place] [facility] [address] [id number] [place] [address] Feb, [facility] [address] [id number] [place] [address] Feb, [facility] [address] [id number] [place] [address] January, [facility] [address] [id number] [place] [address] January, [facility] [address] [id number] [place] [address] 2018 January, [facility] [address] [id number] [place] [address] January, [facility] [address] [id number] [place] [address] January, [facility] [address] [id number] [place] [address] January, [facility] [address] [id number] [place] [address] January, [facility] [address] [id number] [place] [address] January, [facility] [address] [id number] [place] [address] January, [facility] [address] [id number] [place] [address] January, [facility] [address] [id number] [place] [address] Dec, [facility] [address] [id number] [place] [address] Dec, [facility] [address] [id number] [place] [address] Dec, [facility] [address] [id number] [place] [address]- [address]71 Dec, [facility] [id number] [address] Dec, [facility] [id number] [place] [address]- [address] Dec, [facility] [id number] [address] Nov, [facility] [id number] [place] [address] 214622- [address] Nov, [facility] [id number] [place] [address]- [address] Nov, [facility] [id number] [place] [address]- 1146 Oct, [facility] [id number] [place] [address]- 4726 Oct, [facility] [id number] [place] [address]- [address]198 Oct, [facility] [id number] [place] [address]- [address] Oct, [facility] [id number] [address] Oct, [facility] [id number] [place] [address] Jun, IMMUNIZATIONS No Known Immunizations SOCIAL HISTORY Never Assessed REASON FOR VISIT Med change PLAN OF CARE VITAL SIGNS MEDICATIONS Unknown [...]
--- OUTSIDE RECORDS SUMMARY | 2018-02-07 20:33 | XMS REPORT ---
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 Active 5742366 Problem Pain in left shoulder M25.512 Active 34453861 Problem Back pain M54.9 Active 449381375 Problem Socially inappropriate behavior F99 Active 307240687 Problem Amphetamine abuse F15.10 Active 33050687 ALLERGIES No Information ENCOUNTERS Encounter Location Date Diagnosis [facility] [id number] [place] [address] 72577- 3076 Nov, [facility] [id number] [place] [address] 60852- 8666 Sep, [facility] [id number] [place] [address] 34191- 5058 Aug, [facility] [id number] [place] [address] 47159- 7793 Aug, [facility] [id number] [place] [address] 98239- 3431 Jul, [facility] [id number] [place] [address] 81618 -0522 29 Jul, 2017 Back pain M54.9 [facility] [id number] [place] [address] 30435- 4722 Jul, [facility] [address] [place] [address]- 0940 Jun, [facility] [id number] [place] [address] 80647- 2560 Jun, [facility] [id number] [place] [address] 74750- 1258 Jun, Arthritis M19.90 ; Pain in left shoulder M25.512 and Lumbar back pain M54.5 [facility] [id number] [place] [address] 77001- 4266 May, [facility] [id number] [place] [address] 68056- 3034 Apr, [place] [id number] [place] [address] 88438- 6125 Apr, [place] [id number] [place] [address] 03086- 4578 Apr, Essential hypertension I10 and Arthritis M19.90 [facility] [id number] [place] [address] 98143- 7608 Apr, [facility] [id number] [place] [address] 72263- 5451 Mar, [facility] [id number] [place] [address] 37084- 8741 Mar, Lumbar pain M54.5 ; 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 ; Allergic rhinitis, unspecified allergic rhinitis type J30.9 and Hematuria R31.9 [facility] [id number] [place] [address] 66734- 7615 Mar, [facility] [id number] [place] [address] 33332 -9277 January, Open bite, right lower leg, initial encounter S81.851A and Pain in left shoulder M25.512 [facility] [id number] [place] [address] 70805 -6600 Dec, [facility] [address] [address] Dec, Low back pain M54.5 [facility] [id number] [place] [address] 36378- 8024 Aug, [facility] [id number] [place] [address] 24382 -8155 Apr, Perforated left tympanic membrane on examination H72.92 and Deafness in left ear H91.92 [facility] [id number] [place] [address] 35244- 6859 Apr, [place] [id number] [place] [address] 96636- 9677 Mar, Lumbar back pain M54.5 ; Essential hypertension I10 ; Chronic obstructive pulmonary disease, unspecified COPD type J44.9 ; Anxiety F41.9 ; Long-term use of high-risk medication Z79.899 and Socially inappropriate behavior F99 [facility] [facility] [id number] [place] [address] 18707- 8857 Mar, [facility] [facility] [id number] [place] [address] 12730- 9401 Mar, Low back pain M54.5 [facility] [facility] [id number] [place] [address] 69942- 5117 Mar, [facility] [facility] [id number] [place] [address] 58596- 5295 Mar, [facility] [id number] [place] [address] 43808- 0773 Feb, Impingement syndrome, shoulder, left M75.42 and Superior glenoid labrum lesion of left shoulder, subsequent encounter S43.432D [facility] [id number] [place] [address] 71641- 2841 January, [facility] [id number] [place] [address] 36605- 9334 January, [facility] [id number] [place] [address] 72442- 5649 January, [facility] [address] 94843- 2394 Dec, Impingement syndrome, shoulder, left M75.42 [place] [facility] [address] 10529- 4107 Dec, [facility] [address] 84126- 1374 Nov, [facility] [id number] [place] [address] 40401- 5718 Nov, Essential hypertension I10 ; Pain in left shoulder M25.512 ; Amphetamine abuse F15.10 and Callus of foot L84 [facility] [facility] [id number] [place] [address] 35220- 4103 Nov, Shoulder pain, left M25.512 [facility] [facility] [id number] [place] [address] 67514- 1019 Nov, [place] [id number] [place] [address] 58229- 3512 Nov, [facility] [facility] [id number] [place] [address] 30995- 7761 Nov, Allergic rhinitis, unspecified allergic rhinitis type J30.9 ; Right wrist pain M25.531 ; Back pain M54.9 and Essential hypertension I10 [facility] [facility] [id number] [place] [address] 97332- 3018 Nov, [place] [id number] [place] [address] 78356- 4914 Oct, [place] [facility] [id number] [place] [address] 94243- 9689 Oct, Tobacco abuse Z72.0 ; Lumbar back pain M54.5 and Foot callus L84 [place] [facility] [address] 05258- 7616 Sep, [facility] [facility] [id number] [place] [address] 92756- 8382 Sep, Lumbar pain M54.5 ; Essential hypertension I10 ; COPD ( chronic obstructive pulmonary disease) J44.9 ; Anxiety F41.9 and Allergic rhinitis, unspecified allergic rhinitis type J30.9 [facility] [facility] [id number] [place] [address] 04264- 3496 Aug, [place] [id number] [place] [address] 02060- 7814 Aug, [place] [facility] [address] 03679- 9525 Jul, [place] [facility] [id number] [place] [address] 79397- 4780 Jul, Lumbar back pain M54.5 ; Essential hypertension I10 ; COPD ( chronic obstructive pulmonary disease) J44.9 ; Anxiety F41.9 and Allergic rhinitis J30.9 [facility] [facility] [id number] [place] [address] 46879- 3755 Apr, Positive urine drug screen 796.0 and Chronic lumbar pain 724.2 [facility] [facility] [id number] [place] [address] 86619- 4206 Apr, [place] [id number] [place] [address] 48697- 1067 Apr, [place] [id number] [place] [address] 87416- 6198 Apr, [place] [id number] [place] [address] 72498- 1658 Apr, Lumbago 724.2 ; Unspecified viral hepatitis C without hepatic coma 070.70 ; Unspecified disorder of skin and subcutaneous tissue 709.9 and Long-term use of high-risk medication V58.69 [facility] [facility] [id number] [place] [address] 21462- 7538 Mar, Vision changes 368.9 ; Allergic rhinitis 477.9 and Callus of foot 700 [facility] [id number] [place] [address] 97446- 6993 Mar, [facility] [id number] [place] [address] 51883- 2759 Mar, Chronic airway obstruction, not elsewhere classified 496 ; Essential hypertension, benign 401.1 ; Lumbago 724.2 ; Insomnia, unspecified 780.52 ; Anxiety state, unspecified 300.00 and Unspecified disorder of skin and subcutaneous tissue 709.9 [facility] [id number] [place] [address] [id number] Mar, Dental examination V72.2 [facility] [id number] [place] [address] 61046- 5636 Mar, [facility] [id number] [place] [address] 55275- 1417 Feb, Amphetamine and other psychostimulant dependence, unspecified abuse 304.40 [facility] [id number] [place] [address] 67903- 2133 Feb, Chronic airway obstruction, not elsewhere classified 496 ; Back pain 724.5 and Hypertension 401.9 [facility] [id number] [place] [address] 76391- 5433 January, Chronic airway obstruction, not elsewhere classified 496 ; Unspecified disorder of skin and subcutaneous tissue 709.9 ; Lumbago 724.2 ; Essential hypertension, benign 401.1 ; Foot callus 700 and Allergic rhinitis 477.9 [facility] [id number] [place] [address] 03247- 6153 January, [facility] [id number] [place] [address] 03937- 9163 January, [facility] [id number] [place] [address] 66233- 9939 Dec, [facility] [address] [place] [address]- 9912 13 Dec, 2014 [facility] [place] [facility] [address] [id number] [place] [address]- 3594 Nov, [facility] [place] [facility] [address] [id number] [place] [address]- 3946 Nov, [facility] [place] [facility] [address] [id number] [place] [address]- 1999 Nov, [facility] [place] [facility] [address] [id number] [place] [address]- 3703 Nov, [facility] [place] [facility] [address] [id number] [place] [address]- 1131 Nov, [facility] [place] [facility] [address] [id number] [place] [address]- 9157 Nov, [facility] [place] [facility] [address] [id number] [place] [address]- 2997 16 Nov, 2014 [facility] [place] [facility] [address] [id number] [place] [address]- 7041 Nov, [facility] [place] [facility] [address] [id number] [place] [address]- 7119 Nov, [facility] [place] [facility] [address] [facility] [id number] [place] [address]- 7636 Oct, 2014 [facility] [place] [facility] [address] [id number] [place] [address]- 9008 Oct, 2014 [facility] [place] [facility] [address] [facility] [id number] [place] [address]- 9299 Oct, 2014 [facility] [place] [facility] [address] [id number] [place] [address]- 8564 Oct, 2014 [facility] [place] [facility] [address] [facility] [id number] [place] [address]- 3676 Oct, 2014 [facility] [place] [facility] [address] [facility] [id number] [place] [address]- 7801 Oct, [facility] [place] [facility] [address] [id number] [place] [address]- 3420 Oct, 2014 [facility] [place] [facility] [address] [id number] [place] [address]- 0342 Oct, 2014 [facility] [place] [facility] [address] [id number] [place] [address]- 7476 Oct, 2014 [facility] [place] [facility] [address] [id number] [place] [address]- 7920 Oct, 2014 [facility] [place] [facility] [address] [id number] [place] [address]- 2700 Oct, [facility] [place] [facility] [address] [id number] [place] [address]- 9811 Oct, [facility] [place] [facility] [address] [id number] [place] [address]- 6264 Oct, [facility] [place] [facility] [address] [id number] [place] [address]- 3936 Sep, [facility] [place] [facility] [address] [id number] [place] [address]- 1080 Sep, [facility] [place] [facility] [address] [id number] [place] [address]- 0915 Sep, [facility] [place] [facility] [address] [id number] [place] [address]- 7217 Sep, [facility] [place] [facility] [address] [id number] [address]- 8049 Sep, [facility] [place] [facility] [address] [id number] [place] [address]- 5462 Sep, [facility] [place] [facility] [address] [id number] [place] [address]- 0796 Sep, [facility] [place] [facility] [address] [id number] [place] [address]- 0329 Sep, [facility] [place] [facility] [address] [id number] [place] 6223 31 Aug, 2014 [facility] [address] [id number] [place] 9036 Aug, [facility] [place] [facility] [address] [id number] [place] [address]- 3276 Aug, [facility] [place] [facility] [address] [id number] [place] 5326 Aug, [facility] [place] [facility] [address] [id number] [place] [address]- 6483 Aug, [facility] [place] [facility] [address] [id number] [place] [address]- 2597 Aug, [facility] [address] [id number] [place] [address]- 3483 Aug, [facility] [place] [facility] [address] [id number] [place] [address]- 3662 Aug, [facility] [address] [id number] [place] [address]- 4343 Aug, [facility] [place] [facility] [address] [id number] [place] [address]- 6085 Aug, [facility] [address] [id number] [place] [address]- 8370 Aug, [facility] [place] [facility] [address] [id number] [place] [address]- 5427 Aug, [facility] [place] [facility] [address] [id number] [place] [address]- 3760 Aug, [facility] [place] [facility] [address] [id number] [place] 9788 Aug, [facility] [place] [facility] [address] [id number] [place] [id number] Aug, [facility] [place] [facility] [address] [id number] [place] [address]- 8480 Aug, [facility] [place] [facility] [address] [id number] [place] [address]- 6373 Jul, [facility] [place] [facility] [address] [id number] [place] [address]- 3539 Jul, [facility] [place] [facility] [address] [id number] [place] [address]- 2422 Jul, [facility] [place] [facility] [address] [id number] [place] [address]- 2954 Jul, [facility] [place] [facility] [address] [id number] [place] [address]- 0250 Jul, [facility] [place] [facility] [address] [id number] [place] [address]- 3743 Jul, [facility] [place] [facility] [address] [id number] [place] [address]- 1550 Jun, [facility] [place] [facility] [address] [id number] [place] [address]- 9044 Jun, [facility] [place] [facility] [address] [id number] [place] [address]- 7312 Jun, [facility] [place] [facility] [address] [id number] [place] [address]- 1571 Jun, [facility] [place] [facility] [address] [id number] [place] [address]- 5717 Jun, [facility] [place] [facility] [address] [id number], [place] [address]- 9625 Jun, [facility] [place] [facility] [address] [id number] [place] [address]- 4898 Jun, [facility] [place] [facility] [address] [id number] [place] [address]- 8162 Jun, [facility] [place] [facility] [address] [id number], [place] [address]- 0735 Jun, [facility] [place] [facility] [address] [id number], [place] [address]- 9535 Jun, 2013 [facility] [place] [facility] [address] [id number] [place] [address]- 6584 Jun, 2013 [facility] [place] [facility] [address] [id number] [place] 6349 Jun, 2013 [facility] [place] [facility] [address] [id number] [place] [address]- 5911 Jun, 2013 [facility] [place] [facility] [address] [id number] [place] [address]- 2499 Jun, 2013 [facility] [place] [facility] [address] [id number] [place] [address]- 3239 Jun, 2013 [facility] [place] [facility] [address] [id number] [place] [address]- 7295 Jun, 2013 [facility] [place] [facility] [address] [facility] [id number] [place] [address]- 6283 Jun, 2013 [facility] [place] [facility] [address] [id number] [place] [address]- 2721 Jun, 2013 [facility] [place] [facility] [address] [facility] [id number] [place] [address]- 4016 Jun, 2013 [facility] [place] [facility] [address] [facility] [id number] [place] [address]- 5736 Jun, 2013 [facility] [place] [facility] [address] [id number], [place] [address]- 2699 Jun, 2013 [facility] [place] [facility] [address] [id number], [place] [address]- 5275 Jun, [facility] [place] [facility] [address] [id number] [place] 8362 Jun, [facility] [place] [facility] [address] [facility] [id number] [place] [address]- 3293 May, 2013 [facility] [place] [facility] [address] [facility] [id number] [place] [address]- 9794 29 May, 2013 [facility] [place] [facility] [address] [id number] [place] [address]- 3285 May, 2013 [facility] [place] [facility] [address] [id number] [place] [address]- 8242 May, [facility] [place] [facility] [address] [id number] [place] [address]- 7506 May, [facility] [place] [facility] [address] [id number] [place] [address]- 7836 May, [facility] [place] [facility] [address] [id number] [place] [address]- 5304 May, [facility] [place] [facility] [address] [id number] [place] [address]- 6387 May, [facility] [place] [facility] [address] [id number] [place] [address]- 6189 Apr, [facility] [place] [facility] [address] [id number] [place] [address]- 6904 Apr, [facility] [place] [facility] [address] [id number] [place] [address]- 1572 Apr, [facility] [place] [facility] [address] [id number] [place] [address]- 2869 Apr, [facility] [place] [facility] [address] [id number] [place] [address]- 7378 Apr, [facility] [place] [facility] [address] [id number] [place] [address]- 2311 Apr, [facility] [place] [facility] [address] [id number] [place] [address]- 8694 Apr, [facility] [place] [facility] [address] [id number] [place] [address]- 2404 Apr, [facility] [place] [facility] [address] [id number] [place] [address]- 1322 Apr, [facility] [place] [facility] [address] [id number] [place] [address]- 9108 Apr, [facility] [place] [facility] [address] [id number] [place] [address]- 0938 Apr, [facility] [place] [facility] [address] [id number] [place] [address]- 7119 Apr, [facility] [place] [facility] [address] [id number] [place] [address]- 9151 Apr, [facility] [place] [facility] [address] [id number] [place] [address]- 1956 Apr, [facility] [place] [facility] [address] [id number] [place] [address]- 0186 Apr, [facility] [place] [facility] [address] [id number] [place] [address]- 2873 Apr, [facility] [place] [facility] [address] [id number] [place] [address]- 9409 Apr, [facility] [place] [facility] [address] [id number] [place] [address]- 4614 Apr, [facility] [place] [facility] [address] [id number] [place] [address]- 7303 Apr, [facility] [place] [facility] [address] [id number] [place] [address]- 3743 Apr, [facility] [place] [facility] [address] [id number] [place] [address] Apr, [facility] [place] [facility] [address] [id number] [place] [address] Apr, [facility] [place] [facility] [address] [id number] [place] [address] Mar, [facility] [place] [facility] [address] [id number] [place] [address] Mar, [facility] [place] [facility] [address] [id number] [place] [address] Mar, [facility] [place] [facility] [address] [id number] [place] [address] Mar, [facility] [place] [facility] [address] [id number] [place] [address] Mar, [facility] [place] [facility] [address] [id number] [place] [address] Mar, [facility] [place] [facility] [address] [id number] [place] [address] Mar, [facility] [place] [facility] [address] [id number] [place] [address] Mar, [facility] [place] [facility] [address] [id number] [place] [address] Feb, [facility] [place] [facility] [address] [id number] [place] [address] Feb, [facility] [place] [facility] [address] [id number] [place] [address] Feb, [facility] [place] [facility] [address] [id number] [place] [address] Feb, [facility] [place] [facility] [address] [id number] [place] [address] Feb, [facility] [place] [facility] [address] [id number] [place] [address] Feb, [facility] [place] [facility] [address] [id number] [place] [address] Feb, [facility] [place] [facility] [address] [id number] [place] [address] January, [facility] [place] [facility] [address] [id number] [place] [address] January, [facility] [place] [facility] [address] [id number] [place] [address] January, [facility] [place] [facility] [address] [id number] [place] [address] January, [facility] [place] [facility] [address] [id number] [place] [address] Dec, [facility] [place] [facility] [address] [id number] [place] [address] Dec, [facility] [place] [facility] [address] [id number] [place] [address] 6843 Dec, [facility] [place] [facility] [address] [id number] [place] [address] Dec, [facility] [place] [facility] [address] [id number] [place] [address] Dec, [facility] [place] [facility] [address] [id number] [place] [address]47 Dec, [facility] [place] [facility] [address] [id number] [place] [address]707 Dec, [facility] [place] [facility] [address] [id number] [place] [address] Dec, [facility] [place] [facility] [address] [id number] [place] [address] Dec, [facility] [place] [facility] [address] [id number] [place] [address] Dec, [facility] [place] [facility] [address] [id number] [place] [address] 270[address] Nov, [facility] [place] [facility] [address] [id number] [place] [address] Nov, [facility] [place] [facility] [address] [id number] [place] [address] Nov, [facility] [place] [facility] [address] [id number] [place] [address]687 Nov, [facility] [place] [facility] [address] [id number] [place] [address] Oct, [facility] [place] [facility] [address] [id number] [place] [address] Oct, [facility] [place] [facility] [address] [id number] [place] [address] Oct, [facility] [place] [facility] [address] [id number] [place] [address] 73[address] Oct, [facility] [place] [facility] [address] [id number] [place] [address] Oct, [facility] [place] [facility] [address] [id number] [place] [address] 74[address] Oct, [facility] [place] [facility] [address] [id number] [place] [address]65 Oct, [facility] [place] [facility] [address] [id number] [place] [address] Oct, [facility] [place] [facility] [address] [id number] [place] [address] Sep, [facility] [place] [facility] [address] [id number] [place] [address] 18[address] Sep, [facility] [place] [facility] [address] [id number] [place] [address]- [address] Sep, [facility] [place] [facility] [address] [facility] [id number] [place] [address] Sep, [facility] [place] [facility] [address] [id number] [place] [address] Aug, [facility] [place] [facility] [address] [id number], [place] [address] Aug, [facility] [place] [facility] [address] [id number] [place] [address] 79[address] Aug, [facility] [place] [facility] [address] [id number] [place] [address] Aug, [facility] [place] [facility] [address] [id number], [place] [address] Jul, [facility] [place] [facility] [address] [id number] [place] [address] 17[address] Jul, [facility] [place] [facility] [address] [id number] [place] [address] Jul, [facility] [place] [facility] [address] [id number] [place] [address] Jul, [facility] [place] [facility] [address] [id number] [place] [address] Jun, [facility] [place] [facility] [address] [id number] [place] [address] Jun, [facility] [place] [facility] [address] [id number] [place] [address] Jun, [facility] [place] [facility] [address] [id number] [place] [address] Jun, [facility] [place] [facility] [address] [id number] [place] [address] Jun, [facility] [place] [facility] [address] [id number] [place] [address] Jun, [facility] [place] [facility] [address] [id number] [place] [address] 08 Jun, 2013 [facility] [place] [facility] [address] [id number] [place] [address] 17 May, 2013 [facility] [place] [facility] [address] [id number] [place] [address] May, [facility] [place] [facility] [address] [id number] [place] [address] May, [facility] [place] [facility] [address] [id number] [place] [address] Apr, [facility] [place] [facility] [address] [id number] [place] [address] Apr, [facility] [place] [facility] [address] [id number] [place] [address] Apr, [facility] [place] [facility] [address] [id number] [place] [address] Apr, [facility] [place] [facility] [address] [id number] [place] [address] Apr, [facility] [place] [facility] [address] [id number] [place] [address] Mar, [facility] [place] [facility] [address] [id number] [place] [address] Mar, [facility] [place] [facility] [address] [id number] [place] [address] Mar, [facility] [place] [facility] [address] [id number] [place] [address] Mar, [facility] [place] [facility] [address] [id number] [place] [address] Mar, [facility] [place] [facility] [address] [id number] [place] [address] Mar, [facility] [place] [facility] [address] [id number] [place] [address] Feb, [facility] [place] [facility] [address] [id number] [place] [address] Feb, [facility] [place] [facility] [address] [id number] [place] [address] Feb, [facility] [place] [facility] [address] [id number] [place] [address] Feb, [facility] [place] [facility] [address] [id number] [place] [address] Feb, [facility] [place] [facility] [address] [id number] [place] [address] Feb, [facility] [place] [facility] [address] [id number] [place] [address] Feb, [facility] [place] [facility] [address] [id number] [place] [address] Feb, [facility] [address] [id number] [place] [address] Feb, [facility] [address] [id number] [place] [address] January, [facility] [address] [id number] [place] [address] January, [facility] [address] [id number] [place] [address] January, [facility] [address] [id number] [place] [address] January, [facility] [address] [id number] [place] [address] January, [facility] [address] [id number] [place] [address] January, [facility] [address] [id number] [place] [address] January, [facility] [address] [id number] [place] [address] January, [facility] [address] [id number] [place] [address] January, [facility] [address] [id number] [place] [address] January, [facility] [address] [id number] [place] [address] Dec, [facility] [address] [id number] [place] [address] Dec, [facility] [address] [id number] [place] [address] Dec, [facility] [address] [id number] [place] [address] Dec, [facility] [address] [address] Dec, [facility] [id number] [place] [address] Dec, [facility] [id number] [place] [address] Nov, [facility] [id number] [place] [address] Nov, [facility] [id number] [place] [address] Nov, [facility] [id number] [place] [address] Oct, [facility] [id number] [place] [address]- [address] Oct, [facility] [id number] [place] [address] Oct, [facility] [id number] [place] [address] Oct, [facility] [id number] [place] [address]- [address] Oct, [facility] [id number], [place] [address] Jun, IMMUNIZATIONS No Known Immunizations SOCIAL HISTORY Never Assessed REASON FOR VISIT PLAN OF CARE VITAL SIGNS MEDICATIONS Medication Instructions Dosage Frequency Start Date End Date Duration Status Ventolin HFA 108 (90 Base) MCG/ACT Inhalation 4 times a day 2 puffs as needed 6h Active Advair HFA 230-21 mcg/act Inhalation Twice a day 2 puffs by Inhalation route 2 times per day 12h 23 Oct, 2014 Active RESULTS No Results PROCEDURES No Known procedures [...]
[2018-02-07] MEDS ORDERED: METH4TAB PO (20:35)
--- NOTE | 2018-02-07 20:35 | ED Back Pain ---
General Chief Complaint: General Problems/Pain Stated Complaint: BACK PAIN Nursing Triage Note: Patient reports was getting dressed and twisted while he was getting dressed and reports that he is homeless and has some spots on his arms that are healing. patient reports all he needs is a steroid shot Nursing Sepsis Screen: No Definite Risk Source of Information: Patient Exam Limitations: No Limitations History of Present Illness Date Seen by Provider: February 07, 2018 Time Seen by Provider: 20:32 Initial Comments to ER with low back pain. States he has a history of bulging disks at"36 and 7" . Pain does not radiate any of his legs. No fevers or chills. No loss of bowel or bladder control. No saddle anesthesia.Pain became worse after twisting earlier today. Location: Lumbar Spine Timing/Duration: 12 Hours Severity: Moderate Pain/Injury Location: Back Associated Symptoms: lower back pain Allergies and Home Medications Allergies Coded Allergies: Sulfa (Sulfonamide Antibiotics) (Verified Allergy, Unknown, 11/14/15) PT STATES "I JUST CAN'T HAVE IT" Patient Home Medication List Home Medication List Reviewed: Yes Constitutional: see HPI EENTM: see HPI Respiratory: no symptoms reported Cardiovascular: no symptoms reported Genitourinary: no symptoms reported Musculoskeletal: see HPI, back pain Skin: no symptoms reported Past Sulwnjd-Vynzmq-Oivekt Hx Patient Social History Alcohol Use: Denies Use Recreational Drug Use: No Smoking Status: Current Everyday Smoker Type Used: Cigarettes Former Smoker, Quit: Feb 25, 2017 Recent Foreign Travel: No Contact w/Someone Who Travel: No Recent Infectious Disease Expo: No Recent Hopitalizations: No Physical Abuse: No Sexual Abuse: No Immunizations Up To Date Tetanus Booster (TDap): Unknown Date of Pneumonia Vaccine: Nov 16, 2012 Date of Influenza Vaccine: Oct 14, 2016 Seasonal Allergies Seasonal Allergies: No Past Medical History Surgeries: Yes Appendectomy Respiratory: Yes COPD Currently Using CPAP: No Currently Using BIPAP: No Cardiac: No Hypertension Neurological: No Reproductive Disorders: No Genitourinary: No (current uti) Gastrointestinal: No Hepatitis Musculoskeletal: No Arthritis, Chronic Back Pain Endocrine: No HEENT: No Cancer: No Psychosocial: No Nursing Suicide Risk Score: 0 Integumentary: Yes (ulcer present to lle) Blood Disorders: No Adverse Reaction/Blood Tranf: No Family Medical History Patient reports no known family medical history. Physical Exam Vital Signs Vital Signs - First Documented 02/07/18 20:24 Temp 98.2 Pulse 99 Resp 18 B/P (MAP) 147/91 (109) Pulse Ox 98 Capillary Refill : Less Than 3 Seconds General Appearance: No Apparent Distress, WD/WN HEENT: PERRL/EOMI, TMs Normal Neck: Full Range of Motion, Normal Inspection Cardiovascular: Regular Rate, Rhythm, Normal Peripheral Pulses Respiratory: No Accessory Muscle Use, No Respiratory Distress Gastrointestinal: Normal Bowel Sounds, Non Tender, Soft Extremity: Normal Capillary Refill, Normal Inspection Neurologic/Psychiatric: Alert, Oriented x3, No Motor/Sensory Deficits, Normal Mood/Affect, Other (speaks rapidly, flight of ideas.) Skin: Normal Color, Warm/Dry Progress/Results/Core Measures Results/Orders My Orders Orders - ILEANA OSBORNE APRN Ketorolac Injection (Toradol Injection) (02/07/18 20:45) Vital Signs/I&O 02/07/18 20:24 Temp 98.2 Pulse 99 Resp 18 B/P (MAP) 147/91 (109) Pulse Ox 98 Blood Pressure Mean: 109 Departure Impression Primary Impression: Back pain Disposition: 01 HOME, SELF-CARE Condition: Stable Departure-Patient Inst. Decision time for Depature: 20:34 Referrals: NO,LOCAL PHYSICIAN (PCP/Family) Primary Care Physician Patient Instructions: Low Back Pain (DC) Add. Discharge Instructions: 1. Return to ER for any concerns 2. Follow-up with your doctor next week 3.All discharge instructions reviewed with patient and/or family. Voiced understanding. Scripts Methylprednisolone (Medrol) 4 Mg Tab.ds.pk 4 MG PO UD, #1 PKG Prov: ILEANA OSBORNE APRN 02/07/18 ILEANA OSBORNE APRN February 07, 2018 20:35
--- OUTSIDE RECORDS SUMMARY | 2018-02-07 20:36 | XMS REPORT | Continuity of Care Document ---
Author Author [facility] Address Unknown Phone Unavailable Allergies Active Description Code Type Severity Reaction Onset Reported/Identified Relationship to Patient Clinical Status Yes NO KNOWN DRUG ALLERGIES UNKNOWN NO KNOWN DRUG ALLERG Yes No Known Drug Allergies [id number] Drug Allergy Unknown N/A 01/07/2013 Yes Sulfa (Sulfonamide Antibiotics) [id number] Drug Allergy Unknown N/A 2015 Medications Medication Packaging Start Date Stop Date Route Dosage Sig KETOROLAC VIAL INJ 60 MG/2CC (TORADOL VIAL) MG 06/01/2017 06/01/2017 ONCE&2258 ORPHENADRINE INJ 60 MG/2CC (NORFLEX) MG 06/01/2017 06/01/2017 ONCE&2258 Problems Date Dx Coded Attending Type Code Diagnosis Diagnosed By 11/07/2012 ARIK GREEN MD 070.70 HEPATITIS, C VIRUS 11/07/2012 ARIK GREEN MD 295.70 SCHIZOAFFECTIVE DISORDER 11/07/2012 ARIK GREEN MD 496 CHRONIC OBSTRUCTIVE PULMONARY DISEASE 11/07/2012 ARIK GREEN MD V03.82 PPV23 (PNEUMOVAX) DX 11/07/2012 070.70 HEPATITIS, C VIRUS 11/07/2012 295.70 SCHIZOAFFECTIVE DISORDER 11/07/2012 496 CHRONIC OBSTRUCTIVE PULMONARY DISEASE 11/07/2012 V03.82 PPV23 ( PNEUMOVAX) DX 11/07/2012 LINN PETERSON DO 070.70 HEPATITIS, C VIRUS 11/07/2012 LINN PETERSON DO 295.70 SCHIZOAFFECTIVE DISORDER 11/07/2012 LINN PETERSON DO 496 CHRONIC OBSTRUCTIVE PULMONARY DISEASE 11/07/2012 LINN PETERSON DO V03.82 PPV23 (PNEUMOVAX) DX 11/07/2012 070.70 HEPATITIS, C VIRUS 11/07/2012 295.70 SCHIZOAFFECTIVE DISORDER 11/07/2012 496 CHRONIC OBSTRUCTIVE PULMONARY DISEASE 11/07/2012 V03.82 PPV23 ( PNEUMOVAX) DX 11/07/2012 070.70 HEPATITIS, C VIRUS 11/07/2012 295.70 SCHIZOAFFECTIVE DISORDER 11/07/2012 496 CHRONIC OBSTRUCTIVE PULMONARY DISEASE 11/07/2012 V03.82 PPV23 ( PNEUMOVAX) DX 11/07/2012 070.70 HEPATITIS, C VIRUS 11/07/2012 295.70 SCHIZOAFFECTIVE DISORDER 11/07/2012 496 CHRONIC OBSTRUCTIVE PULMONARY DISEASE 11/07/2012 V03.82 PPV23 ( PNEUMOVAX) DX 11/07/2012 070.70 HEPATITIS, C VIRUS 11/07/2012 295.70 SCHIZOAFFECTIVE DISORDER 11/07/2012 496 CHRONIC OBSTRUCTIVE PULMONARY DISEASE 11/07/2012 V03.82 PPV23 ( PNEUMOVAX) DX 11/07/2012 070.70 HEPATITIS, C VIRUS 11/07/2012 295.70 SCHIZOAFFECTIVE DISORDER 11/07/2012 496 CHRONIC OBSTRUCTIVE PULMONARY DISEASE 11/07/2012 V03.82 PPV23 ( PNEUMOVAX) DX 11/07/2012 070.70 HEPATITIS, C VIRUS 11/07/2012 295.70 SCHIZOAFFECTIVE DISORDER 11/07/2012 496 CHRONIC OBSTRUCTIVE PULMONARY DISEASE 11/07/2012 V03.82 PPV23 ( PNEUMOVAX) DX 11/07/2012 070.70 HEPATITIS, C VIRUS 11/07/2012 295.70 SCHIZOAFFECTIVE DISORDER 11/07/2012 496 CHRONIC OBSTRUCTIVE PULMONARY DISEASE 11/07/2012 V03.82 PPV23 ( PNEUMOVAX) DX 11/07/2012 070.70 HEPATITIS, C VIRUS 11/07/2012 295.70 SCHIZOAFFECTIVE DISORDER 11/07/2012 496 CHRONIC OBSTRUCTIVE PULMONARY DISEASE 11/07/2012 V03.82 PPV23 ( PNEUMOVAX) DX 11/07/2012 070.70 HEPATITIS, C VIRUS 11/07/2012 295.70 SCHIZOAFFECTIVE DISORDER 11/07/2012 496 CHRONIC OBSTRUCTIVE PULMONARY DISEASE 11/07/2012 V03.82 PPV23 ( PNEUMOVAX) DX 11/07/2012 070.70 HEPATITIS, C VIRUS 11/07/2012 295.70 SCHIZOAFFECTIVE DISORDER 11/07/2012 496 CHRONIC OBSTRUCTIVE PULMONARY DISEASE 11/07/2012 V03.82 PPV23 ( PNEUMOVAX) DX 11/07/2012 070.70 HEPATITIS, C VIRUS 11/07/2012 295.70 SCHIZOAFFECTIVE DISORDER 11/07/2012 496 CHRONIC OBSTRUCTIVE PULMONARY DISEASE 11/07/2012 V03.82 PPV23 ( PNEUMOVAX) DX 11/07/2012 070.70 HEPATITIS, C VIRUS 11/07/2012 295.70 SCHIZOAFFECTIVE DISORDER 11/07/2012 496 CHRONIC OBSTRUCTIVE PULMONARY DISEASE 11/07/2012 V03.82 PPV23 ( PNEUMOVAX) DX 11/07/2012 TK AGUILAR DO F 070.70 HEPATITIS, C VIRUS 11/07/2012 TK AGUILAR DO F 295.70 SCHIZOAFFECTIVE DISORDER 11/07/2012 LAUREN DUNN TK F 496 CHRONIC OBSTRUCTIVE PULMONARY DISEASE 11/07/2012 LAUREN DUNN TK F V03.82 PPV23 (PNEUMOVAX) DX 11/07/2012 HARSHA FISHMAN MD 070.70 HEPATITIS, C VIRUS 11/07/2012 HARSHA FISHMAN MD 295.70 SCHIZOAFFECTIVE DISORDER 11/07/2012 HARSHA FISHMAN MD 496 CHRONIC OBSTRUCTIVE PULMONARY DISEASE 11/07/2012 HARSHA FISHMAN MD V03.82 PPV23 (PNEUMOVAX) DX 11/07/2012 BENY CARRASCO APRN 070.70 HEPATITIS, C VIRUS 11/07/2012 BENY CARRASCO APRN 295.70 SCHIZOAFFECTIVE DISORDER 11/07/2012 BENY CARRASCO APRN 496 CHRONIC OBSTRUCTIVE PULMONARY DISEASE 11/07/2012 BENY CARRASCO APRN V03.82 PPV23 (PNEUMOVAX) DX 11/07/2012 BENY CARRASCO APRN 070.70 HEPATITIS, C VIRUS 11/07/2012 BENY CARRASCO APRN 295.70 SCHIZOAFFECTIVE DISORDER 11/07/2012 BENY CARRASCO APRN 496 CHRONIC OBSTRUCTIVE PULMONARY DISEASE 11/07/2012 BENY CARRASCO APRN V03.82 PPV23 (PNEUMOVAX) DX 11/07/2012 HARSHA FISHMAN MD 070.70 HEPATITIS, C VIRUS 11/07/2012 HARSHA FISHMAN MD 295.70 SCHIZOAFFECTIVE DISORDER 11/07/2012 HARSHA FISHMAN MD 496 CHRONIC OBSTRUCTIVE PULMONARY DISEASE 11/07/2012 HARSHA FISHMAN MD V03.82 PPV23 (PNEUMOVAX) DX 11/07/2012 PETERSON DO, LINN K 070.70 HEPATITIS, C VIRUS 11/07/2012 PETERSON DO, LINN K 295.70 SCHIZOAFFECTIVE DISORDER 11/07/2012 PETERSON DO, LINN K 496 CHRONIC OBSTRUCTIVE PULMONARY DISEASE 11/07/2012 PETERSON DO, LINN K V03.82 PPV23 (PNEUMOVAX) DX 11/07/2012 PETERSON DO, LINN K 070.70 HEPATITIS, C VIRUS 11/07/2012 PETERSON DO, LINN K 295.70 SCHIZOAFFECTIVE DISORDER 11/07/2012 PETERSON DO, LINN K 496 CHRONIC OBSTRUCTIVE PULMONARY DISEASE 11/07/2012 PETERSON DO, LINN K V03.82 PPV23 (PNEUMOVAX) DX 11/07/2012 PETERSON DO, LINN K 070.70 HEPATITIS, C VIRUS 11/07/2012 PETERSON DO, LINN K 295.70 SCHIZOAFFECTIVE DISORDER 11/07/2012 PETERSON DO, LINN K 496 CHRONIC OBSTRUCTIVE PULMONARY DISEASE 11/07/2012 PETERSON DO, LINN K V03.82 PPV23 (PNEUMOVAX) DX 11/07/2012 MADL SUPERVISOR [employer], KARIE L 070.70 HEPATITIS, C VIRUS 11/07/2012 MADL SUPERVISOR [employer], KARIE L 295.70 SCHIZOAFFECTIVE DISORDER 11/07/2012 MADL SUPERVISOR [employer], KARIE L 496 CHRONIC OBSTRUCTIVE PULMONARY DISEASE 11/07/2012 MADL SUPERVISOR [employer], KARIE L V03.82 PPV23 (PNEUMOVAX) DX 11/07/2012 PETERSON DO, LINN K 070.70 HEPATITIS, C VIRUS 11/07/2012 PETERSON DO, LINN K 295.70 SCHIZOAFFECTIVE DISORDER 11/07/2012 PETERSON DO, LINN K 496 CHRONIC OBSTRUCTIVE PULMONARY DISEASE 11/07/2012 PETERSON DO, LINN K V03.82 PPV23 (PNEUMOVAX) DX 11/07/2012 MADL SUPERVISOR [employer], KARIE L 070.70 HEPATITIS, C VIRUS 11/07/2012 MADL SUPERVISOR [employer], KARIE L 295.70 SCHIZOAFFECTIVE DISORDER 11/07/2012 MADL SUPERVISOR [employer], KARIE L 496 CHRONIC OBSTRUCTIVE PULMONARY DISEASE 11/07/2012 MADL SUPERVISOR [employer], KARIE L V03.82 PPV23 (PNEUMOVAX) DX 11/07/2012 PETERSON DO, LINN K 070.70 HEPATITIS, C VIRUS 11/07/2012 PETERSON DO, LINN K 295.70 SCHIZOAFFECTIVE DISORDER 11/07/2012 KRISTEN DUNN, LINN K 496 CHRONIC OBSTRUCTIVE PULMONARY DISEASE 11/07/2012 PETERSON , LINN K V03.82 PPV23 (PNEUMOVAX) DX 11/07/2012 SUSANNA SUPERVISOR [employer], FRANK T 070.70 HEPATITIS, C VIRUS 11/07/2012 SUSANNA SUPERVISOR [employer], FRANK T 295.70 SCHIZOAFFECTIVE DISORDER 11/07/2012 SUSANNA SUPERVISOR [employer], FRANK T 496 CHRONIC OBSTRUCTIVE PULMONARY DISEASE 11/07/2012 SUSANNA SUPERVISOR [employer] FRANK T V03.82 PPV23 (PNEUMOVAX) DX 11/07/2012 MADL SUPERVISOR [employer], KARIE L 070.70 HEPATITIS, C VIRUS 11/07/2012 MADL SUPERVISOR [employer], KARIE L 295.70 SCHIZOAFFECTIVE DISORDER 11/07/2012 MADL SUPERVISOR [employer] SUP[employer], KARIE L 496 CHRONIC OBSTRUCTIVE PULMONARY DISEASE 11/07/2012 MADL SUPERVISOR [employer], KARIE L V03.82 PPV23 (PNEUMOVAX) DX 11/07/2012 MADL SUPERVISOR [employer]Y, KARIE L 070.70 HEPATITIS, C VIRUS 11/07/2012 MADL SUPERVISOR [employer], KARIE L 295.70 SCHIZOAFFECTIVE DISORDER 11/07/2012 MADL SUPERVISOR [employer] SUP[employer], KARIE L 496 CHRONIC OBSTRUCTIVE PULMONARY DISEASE 11/07/2012 MADL SUPERVISOR [employer] SUP[employer]Y, KARIE L V03.82 PPV23 (PNEUMOVAX) DX 11/07/2012 MADL SUPERVISOR [employer]Y, KARIE L 070.70 HEPATITIS, C VIRUS 11/07/2012 MADL SUPERVISOR [employer]Y, KARIE L 295.70 SCHIZOAFFECTIVE DISORDER 11/07/2012 MADL SUPERVISOR [employer] SUP[employer]Y, KARIE L 496 CHRONIC OBSTRUCTIVE PULMONARY DISEASE 11/07/2012 MADL SUPERVISOR [employer] SUPPLY, KARIE L V03.82 PPV23 (PNEUMOVAX) DX 11/07/2012 MADL SUPERVISOR [employer]Y, KARIE L 070.70 HEPATITIS, C VIRUS 11/07/2012 TANNER SUPERVISOR [employer]Y, KARIE L 295.70 SCHIZOAFFECTIVE DISORDER 11/07/2012 TANNER SUPERVISOR [employer]Y, KARIE L 496 CHRONIC OBSTRUCTIVE PULMONARY DISEASE 11/07/2012 TANNER VILLALOBOSN, KARIE L V03.82 PPV23 (PNEUMOVAX) DX 11/07/2012 LEANNA SUPERVISOR [employer]PPLY, REBEKA R 070.70 HEPATITIS, C VIRUS 11/07/2012 LEANNA SUPERVISOR [employer]Y, REBEKA R 295.70 SCHIZOAFFECTIVE DISORDER 11/07/2012 LEANNA SUPERVISOR [employer] SUPPLY, REBEKA R 496 CHRONIC OBSTRUCTIVE PULMONARY DISEASE 11/07/2012 LEANNA VILLALOBOSN, REBEKA R V03.82 PPV23 (PNEUMOVAX) DX 12/05/2012 788.64 delays in starting urination (hesitancy) 12/05/2012 V76.51 visit for: screening malignant neoplasm colon 12/05/2012 LINN PETERSON DO 788.64 delays in starting urination (hesitancy) 12/05/2012 LINN PETERSON DO V76.51 visit for: screening malignant neoplasm colon 12/05/2012 788.64 delays in starting urination (hesitancy) 12/05/2012 V76.51 visit for: screening malignant neoplasm colon 12/05/2012 788.64 delays in starting urination (hesitancy) 12/05/2012 V76.51 visit for: screening malignant neoplasm colon 12/05/2012 788.64 delays in starting urination (hesitancy) 12/05/2012 V76.51 visit for: screening malignant neoplasm colon 12/05/2012 788.64 delays in starting urination (hesitancy) 12/05/2012 V76.51 visit for: screening malignant neoplasm colon 12/05/2012 788.64 delays in starting urination (hesitancy) 12/05/2012 V76.51 visit for: screening malignant neoplasm colon 12/05/2012 788.64 delays in starting urination (hesitancy) 12/05/2012 V76.51 visit for: screening malignant neoplasm colon 12/05/2012 788.64 delays in starting urination (hesitancy) 12/05/2012 V76.51 visit for: screening malignant neoplasm colon 12/05/2012 788.64 delays in starting urination (hesitancy) 12/05/2012 V76.51 visit for: screening malignant neoplasm colon 12/05/2012 788.64 delays in starting urination (hesitancy) 12/05/2012 V76.51 visit for: screening malignant neoplasm colon 12/05/2012 788.64 delays in starting urination (hesitancy) 12/05/2012 V76.51 visit for: screening malignant neoplasm colon 12/05/2012 788.64 delays in starting urination (hesitancy) 12/05/2012 V76.51 visit for: screening malignant neoplasm colon 12/05/2012 788.64 delays in starting urination (hesitancy) 12/05/2012 V76.51 visit for: screening malignant neoplasm colon 12/05/2012 TK AGUILAR DO 788.64 delays in starting urination (hesitancy) 12/05/2012 TK AGUILAR DO V76.51 visit for: screening malignant neoplasm colon 12/05/2012 HARSHA FISHMAN MD 788.64 delays in starting urination (hesitancy) 12/05/2012 HARSHA FISHMAN MD V76.51 visit for: screening malignant neoplasm colon 12/05/2012 BENY CARRASCO APRN 788.64 delays in starting urination (hesitancy) 12/05/2012 BENY CARRASCO APRN V76.51 visit for: screening malignant neoplasm colon 12/05/2012 BENY CARRASCO APRN 788.64 delays in starting urination (hesitancy) 12/05/2012 BENY CARRASCO APRN V76.51 visit for: screening malignant neoplasm colon 12/05/2012 HARSHA FISHMAN MD 788.64 delays in starting urination (hesitancy) 12/05/2012 HARSHA FISHMAN MD V76.51 visit for: screening malignant neoplasm colon 12/05/2012 LINN PETERSON DO 788.64 delays in starting urination (hesitancy) 12/05/2012 LINN PETERSON DO V76.51 visit for: screening malignant neoplasm colon 12/05/2012 LINN PETERSON DO 788.64 delays in starting urination (hesitancy) 12/05/2012 PETERSON DO, LINN K V76.51 visit for: screening malignant neoplasm colon 12/05/2012 PETERSON DO LINN K 788.64 delays in starting urination (hesitancy) 12/05/2012 PETERSON DO LINN K V76.51 VISIT FOR: SCREENING MALIGNANT NEOPLASM COLON 12/05/2012 MADL SUPERVISOR [employer], KARIE L 788.64 delays in starting urination (hesitancy) 12/05/2012 MADL SUPER[employer], KARIE L V76.51 VISIT FOR: SCREENING MALIGNANT NEOPLASM COLON 12/05/2012 PETERSON DO LINN K 788.64 delays in starting urination (hesitancy) 12/05/2012 PETERSON DO LINN K V76.51 VISIT FOR: SCREENING MALIGNANT NEOPLASM COLON 12/05/2012 MADL SUPERVISOR [employer], KARIE L 788.64 delays in starting urination (hesitancy) 12/05/2012 MADL SUPER[employer], KARIE L V76.51 VISIT FOR: SCREENING MALIGNANT NEOPLASM COLON 12/05/2012 KRISTEN DUNN LINN K 788.64 delays in starting urination (hesitancy) 12/05/2012 ALFREDO PETERSON DOA K V76.51 VISIT FOR: SCREENING MALIGNANT NEOPLASM COLON 12/05/2012 FRANK MULLINS APRN 788.64 delays in starting urination (hesitancy) 12/05/2012 FRANK MULLINS APRN V76.51 VISIT FOR: SCREENING MALIGNANT NEOPLASM COLON 12/05/2012 MADL SUPER[employer], KARIE L 788.64 delays in starting urination (hesitancy) 12/05/2012 CRISTOBALL SUPERVISOR [employer], KARIE L V76.51 VISIT FOR: SCREENING MALIGNANT NEOPLASM COLON 12/05/2012 MADL SUPERVISOR [employer], KARIE L 788.64 delays in starting urination (hesitancy) 12/05/2012 MADL SUPERVISOR [employer], KARIE L V76.51 VISIT FOR: SCREENING MALIGNANT NEOPLASM COLON 12/05/2012 MADL SUPERVISOR [employer] SUP[employer], KARIE L 788.64 delays in starting urination (hesitancy) 12/05/2012 MADL SUPERVISOR [employer], KARIE L V76.51 VISIT FOR: SCREENING MALIGNANT NEOPLASM COLON 12/05/2012 MADL SUPER[employer]OR [employer], KARIE L 788.64 delays in starting urination (hesitancy) 12/05/2012 TANNER VILLALOBOSNKARIE L V76.51 VISIT FOR: SCREENING MALIGNANT NEOPLASM COLON 12/05/2012 REBEKA RAM APRN R 788.64 delays in starting urination (hesitancy) 12/05/2012 REBEKA RAM APRN V76.51 VISIT FOR: SCREENING MALIGNANT NEOPLASM COLON 12/17/2012 LINN PETERSON DO 578.1 HEMATOCHEZIA 12/17/2012 578.1 HEMATOCHEZIA 12/17/2012 578.1 red blood in bowel movement (hematochezia) 12/17/2012 578.1 red blood in bowel movement (hematochezia) 12/17/2012 578.1 red blood in bowel movement (hematochezia) 12/17/2012 578.1 red blood in bowel movement (hematochezia) 12/17/2012 578.1 red blood in bowel movement (hematochezia) 12/17/2012 578.1 red blood in bowel movement (hematochezia) 12/17/2012 578.1 red blood in bowel movement (hematochezia) 12/17/2012 578.1 red blood in bowel movement (hematochezia) 12/17/2012 578.1 red blood in bowel movement (hematochezia) 12/17/2012 578.1 red blood in bowel movement (hematochezia) 12/17/2012 578.1 red blood in bowel movement (hematochezia) 12/17/2012 TK AGUILAR DO 578.1 red blood in bowel movement (hematochezia) 12/17/2012 HARSHA FISHMAN MD 578.1 red blood in bowel movement (hematochezia) 12/17/2012 BENY CARRASCO APRN 578.1 red blood in bowel movement (hematochezia) 12/17/2012 BENY CARRASCO APRN 578.1 red blood in bowel movement (hematochezia) 12/17/2012 HARSHA FISHMAN MD 578.1 red blood in bowel movement (hematochezia) 12/17/2012 LINN PETERSON DO 578.1 red blood in bowel movement (hematochezia) 12/17/2012 PETERSON DO LINN K 578.1 red blood in bowel movement (hematochezia) 12/17/2012 PETERSON DO, LINN K 578.1 red blood in bowel movement (hematochezia) 12/17/2012 TANNER SOW, KARIE L 578.1 red blood in bowel movement (hematochezia) 12/17/2012 ALFREDO PETERSON DOA K 578.1 red blood in bowel movement (hematochezia) 12/17/2012 TANNER SOW, KARIE L 578.1 red blood in bowel movement (hematochezia) 12/17/2012 PETERSON DOALFREDOA K 578.1 red blood in bowel movement (hematochezia) 12/17/2012 FRANK MULLINS APRN 578.1 red blood in bowel movement (hematochezia) 12/17/2012 TANNER SOW, KARIE L 578.1 red blood in bowel movement (hematochezia) 12/17/2012 MIKAL HART APRNNYA L 578.1 red blood in bowel movement (hematochezia) 12/17/2012 TANNER SOW, KARIE L 578.1 red blood in bowel movement (hematochezia) 12/17/2012 TANNER SOW, KARIE L 578.1 red blood in bowel movement (hematochezia) 12/17/2012 REBEKA RAM APRN 578.1 red blood in bowel movement (hematochezia) 01/07/2013 Ot 562.10 DIVERTICULOSIS COLON (W/O MENT OF HEMORR 01/07/2013 Ot V76.51 SCREEN MAL NEOP-COLON 01/08/2013 401.1 ESSENTIAL HYPERTENSION BENIGN 01/08/2013 780.52 insomnia 01/08/2013 401.1 ESSENTIAL HYPERTENSION BENIGN 01/08/2013 780.52 insomnia 01/08/2013 401.1 ESSENTIAL HYPERTENSION BENIGN 01/08/2013 780.52 insomnia 01/08/2013 401.1 ESSENTIAL HYPERTENSION BENIGN 01/08/2013 780.52 insomnia 01/08/2013 401.1 ESSENTIAL HYPERTENSION BENIGN 01/08/2013 780.52 insomnia 01/08/2013 401.1 ESSENTIAL HYPERTENSION BENIGN 01/08/2013 780.52 insomnia 01/08/2013 401.1 ESSENTIAL HYPERTENSION BENIGN 01/08/2013 780.52 insomnia 01/08/2013 401.1 ESSENTIAL HYPERTENSION BENIGN 01/08/2013 780.52 insomnia 01/08/2013 401.1 ESSENTIAL HYPERTENSION BENIGN 01/08/2013 780.52 insomnia 01/08/2013 401.1 ESSENTIAL HYPERTENSION BENIGN 01/08/2013 780.52 insomnia 01/08/2013 401.1 ESSENTIAL HYPERTENSION BENIGN 01/08/2013 780.52 insomnia 01/08/2013 WERMADELINE DO TK F 401.1 ESSENTIAL HYPERTENSION BENIGN 01/08/2013 WERDER DO, TK F 780.52 insomnia 01/08/2013 HARSHA FISHMAN MD 401.1 ESSENTIAL HYPERTENSION BENIGN 01/08/2013 HARSHA FISHMAN MD 780.52 insomnia 01/08/2013 BENY CARRASCO APRN 401.1 ESSENTIAL HYPERTENSION BENIGN 01/08/2013 BENY CARRASCO APRN 780.52 insomnia 01/08/2013 BENY CARRASCO APRN 401.1 ESSENTIAL HYPERTENSION BENIGN 01/08/2013 BENY CARRASCO APRN 780.52 insomnia 01/08/2013 HARSHA FISHMAN MD 401.1 ESSENTIAL HYPERTENSION BENIGN 01/08/2013 HARSHA FISHMAN MD 780.52 insomnia 01/08/2013 PETERSON DO, LINN K 401.1 ESSENTIAL HYPERTENSION BENIGN 01/08/2013 PETERSON DO, LINN K 780.52 insomnia 01/08/2013 PETERSON DO, LINN K 401.1 ESSENTIAL HYPERTENSION BENIGN 01/08/2013 PETERSON DO, LINN K 780.52 insomnia 01/08/2013 PETERSON DO, LINN K 401.1 ESSENTIAL HYPERTENSION BENIGN 01/08/2013 PETERSON DO, LINN K 780.52 insomnia 01/08/2013 MADL SUPER[employer], KARIE L 401.1 ESSENTIAL HYPERTENSION BENIGN 01/08/2013 MADL SUPER[employer]OR [employer], KARIE L 780.52 insomnia 01/08/2013 PETERSON DO, LINN K 401.1 ESSENTIAL HYPERTENSION BENIGN 01/08/2013 PETERSON DO, LINN K 780.52 insomnia 01/08/2013 MADL SUPER[employer]OR [employer], KARIE L 401.1 ESSENTIAL HYPERTENSION BENIGN 01/08/2013 MADL SUPER[employer]OR [employer], KARIE L 780.52 insomnia 01/08/2013 PETERSON DO, LINN K 401.1 ESSENTIAL HYPERTENSION BENIGN 01/08/2013 PETERSON DO, LINN K 780.52 insomnia 01/08/2013 FRANK MULLINS APRN T 401.1 ESSENTIAL HYPERTENSION BENIGN 01/08/2013 FRANK MULLINS APRN T 780.52 insomnia 01/08/2013 MADL SUPER[employer], KARIE L 401.1 ESSENTIAL HYPERTENSION BENIGN 01/08/2013 MADL SUPER[employer]OR [employer], KARIE L 780.52 insomnia 01/08/2013 MADL SUPERVISOR [employer] SUP[employer]Y, KARIE L 401.1 ESSENTIAL HYPERTENSION BENIGN 01/08/2013 MADL SUPERVISOR [employer]Y, KARIE L 780.52 insomnia 01/08/2013 MADL SUPERVISOR [employer] SUP[employer]Y, KARIE L 401.1 ESSENTIAL HYPERTENSION BENIGN 01/08/2013 MADL SUPERVISOR [employer]Y, KARIE L 780.52 insomnia 01/08/2013 MADL SUPERVISOR [employer]Y, KARIE L 401.1 ESSENTIAL HYPERTENSION BENIGN 01/08/2013 MADL SUPERVISOR [employer], KARIE L 780.52 insomnia 01/08/2013 LEANNA VILLALOBOSN, REBEKA R 401.1 ESSENTIAL HYPERTENSION BENIGN 01/08/2013 LEANNA SUPERVISOR [employer], REBEKA R 780.52 insomnia 01/31/2013 780.4 dizziness 01/31/2013 786.50 chest pain or discomfort 01/31/2013 780.4 dizziness 01/31/2013 786.50 chest pain or discomfort 01/31/2013 593.9 RENAL INSUFFICIENCY 01/31/2013 780.4 dizziness 01/31/2013 786.50 chest pain or discomfort 01/31/2013 593.9 RENAL INSUFFICIENCY 01/31/2013 780.4 dizziness 01/31/2013 786.50 chest pain or discomfort 01/31/2013 593.9 RENAL INSUFFICIENCY 01/31/2013 780.4 dizziness 01/31/2013 786.50 chest pain or discomfort 01/31/2013 593.9 RENAL INSUFFICIENCY 01/31/2013 780.4 dizziness 01/31/2013 786.50 chest pain or discomfort 01/31/2013 593.9 RENAL INSUFFICIENCY 01/31/2013 780.4 dizziness 01/31/2013 786.50 chest pain or discomfort 01/31/2013 593.9 RENAL INSUFFICIENCY 01/31/2013 780.4 dizziness 01/31/2013 786.50 chest pain or discomfort 01/31/2013 593.9 RENAL INSUFFICIENCY 01/31/2013 780.4 dizziness 01/31/2013 786.50 chest pain or discomfort 01/31/2013 WERMADELINE DO, TK F 593.9 RENAL INSUFFICIENCY 01/31/2013 WERDER DO, TK F 780.4 dizziness 01/31/2013 WERDER DO, TK F 786.50 chest pain or discomfort 01/31/2013 HARSHA FISHMAN MD 593.9 RENAL INSUFFICIENCY 01/31/2013 HARSHA FISHMAN MD 780.4 dizziness 01/31/2013 HARSHA FISHMAN MD 786.50 chest pain or discomfort 01/31/2013 BENY CARRASCO APRN 593.9 RENAL INSUFFICIENCY 01/31/2013 BENY CARRASCO APRN 780.4 dizziness 01/31/2013 BENY CARRASCO APRN 786.50 chest pain or discomfort 01/31/2013 BENY CARRASCO APRN 593.9 RENAL INSUFFICIENCY 01/31/2013 BENY CARRASCO APRN 780.4 dizziness 01/31/2013 BENY CARRASCO APRN 786.50 chest pain or discomfort 01/31/2013 HARSHA FISHMAN MD 593.9 RENAL INSUFFICIENCY 01/31/2013 HARSHA FISHMAN MD 780.4 dizziness 01/31/2013 HARSHA FISHMAN MD 786.50 chest pain or discomfort 01/31/2013 PETERSON DO, LINN K 593.9 RENAL INSUFFICIENCY 01/31/2013 PETERSON DO, LINN K 780.4 dizziness 01/31/2013 PETERSON DO, LINN K 786.50 chest pain or discomfort 01/31/2013 PETERSON DO, LINN K 593.9 RENAL INSUFFICIENCY 01/31/2013 PETESRON DO, LINN K 780.4 dizziness 01/31/2013 PETERSON DO, LINN K 786.50 chest pain or discomfort 01/31/2013 PETERSON DO, LINN K 593.9 RENAL INSUFFICIENCY 01/31/2013 PETERSON DO, LINN K 780.4 dizziness 01/31/2013 PETERSON DO, LINN K 786.50 chest pain or discomfort 01/31/2013 MADMiya [employer], KARIE L 593.9 RENAL INSUFFICIENCY 01/31/2013 MADMiya [employer], KARIE L 780.4 dizziness 01/31/2013 MADL [employer], KARIE L 786.50 chest pain or discomfort 01/31/2013 PETERSON DO, LINN K 593.9 RENAL INSUFFICIENCY 01/31/2013 PETERSON DO, LINN K 780.4 dizziness 01/31/2013 PETRESON DO, LINN K 786.50 chest pain or discomfort 01/31/2013 MADL [employer], KARIE L 593.9 RENAL INSUFFICIENCY 01/31/2013 MADL [employer], KARIE L 780.4 dizziness 01/31/2013 MADL [employer], KARIE L 786.50 chest pain or discomfort 01/31/2013 PETERSON DO, LINN K 593.9 RENAL INSUFFICIENCY 01/31/2013 PETERSON DO, LINN K 780.4 dizziness 01/31/2013 PETERSON DO, LINN K 786.50 chest pain or discomfort 01/31/2013 FRANK MULLINS APRN T 593.9 RENAL INSUFFICIENCY 01/31/2013 SUSANNA SOW FRANK T 780.4 dizziness 01/31/2013 SUSANNA SOW FRANK T 786.50 chest pain or discomfort 01/31/2013 MADL [employer], KARIE L 593.9 RENAL INSUFFICIENCY 01/31/2013 MADL [employer], KARIE L 780.4 dizziness 01/31/2013 MADL [employer], KARIE L 786.50 chest pain or discomfort 01/31/2013 MADL [employer], KARIE L 593.9 RENAL INSUFFICIENCY 01/31/2013 MADL [employer], KARIE L 780.4 dizziness 01/31/2013 MADL [employer], KARIE L 786.50 chest pain or discomfort 01/31/2013 MADL [employer], KARIE L 593.9 RENAL INSUFFICIENCY 01/31/2013 MADL [employer], KARIE L 780.4 dizziness 01/31/2013 MADL [employer], KARIE L 786.50 chest pain or discomfort 01/31/2013 MADL [employer], KARIE L 593.9 RENAL INSUFFICIENCY 01/31/2013 MADL [employer], KARIE L 780.4 dizziness 01/31/2013 MADL [employer], KARIE L 786.50 chest pain or discomfort 01/31/2013 REBEKA RAM APRN R 593.9 RENAL INSUFFICIENCY 01/31/2013 REBEKA RAM APRN R 780.4 dizziness 01/31/2013 REBEKA RAM APRN R 786.50 chest pain or discomfort 02/04/2013 V81.1 HYPERTENSION SCREENING 02/04/2013 V81.1 HYPERTENSION SCREENING 02/04/2013 V81.1 HYPERTENSION SCREENING 02/04/2013 V81.1 HYPERTENSION SCREENING 02/04/2013 V81.1 HYPERTENSION SCREENING 02/04/2013 V81.1 HYPERTENSION SCREENING 02/04/2013 V81.1 HYPERTENSION SCREENING 02/04/2013 V81.1 HYPERTENSION SCREENING 02/04/2013 TK AGUILAR DO V81.1 HYPERTENSION SCREENING 02/04/2013 SRAVANTHI BELLO, HARSHA Goddard V81.1 HYPERTENSION SCREENING 02/04/2013 BENY CARRASCO APRN V81.1 HYPERTENSION SCREENING 02/04/2013 BENY CARRASCO APRN V81.1 HYPERTENSION SCREENING 02/04/2013 HARSHA FISHMAN MD V81.1 HYPERTENSION SCREENING 02/04/2013 PETERSON DO, LINN K V81.1 HYPERTENSION SCREENING 02/04/2013 PETERSON DO, LINN K V81.1 HYPERTENSION SCREENING 02/04/2013 PETERSON DO, LINN K V81.1 HYPERTENSION SCREENING 02/04/2013 [facility] SUPERVISOR [employer], KARIE L V81.1 HYPERTENSION SCREENING 02/04/2013 PETERSON DO, LINN K V81.1 HYPERTENSION SCREENING 02/04/2013 [employer] SUPERVISOR [employer], KARIE L V81.1 HYPERTENSION SCREENING 02/04/2013 PETERSON DO, LINN K V81.1 HYPERTENSION SCREENING 02/04/2013 FRANK MULLINS APRN V81.1 HYPERTENSION SCREENING 02/04/2013 [facility] SUPERVISOR [employer], KARIE L V81.1 HYPERTENSION SCREENING 02/04/2013 MAD[employer] SUPERVISOR [employer], KARIE L V81.1 HYPERTENSION SCREENING 02/04/2013 MAD[employer] SUPERVISOR [employer], KARIE L V81.1 HYPERTENSION SCREENING 02/04/2013 MAD[employer] SUPERVIS[employer], KARIE L V81.1 HYPERTENSION SCREENING 02/04/2013 REBEKA RAM APRN R V81.1 HYPERTENSION SCREENING 02/19/2013 788.1 pain during urination (dysuria) 02/19/2013 788.1 pain during urination (dysuria) 02/19/2013 788.1 pain during urination (dysuria) 02/19/2013 788.1 pain during urination (dysuria) 02/19/2013 788.1 pain during urination (dysuria) 02/19/2013 788.1 pain during urination (dysuria) 02/19/2013 TK AGUILAR DO 788.1 pain during urination (dysuria) 02/19/2013 HARSHA FISHMAN MD 788.1 pain during urination (dysuria) 02/19/2013 BENY CARRASCO APRN 788.1 pain during urination (dysuria) 02/19/2013 BENY CARRASCO APRN 788.1 pain during urination (dysuria) 02/19/2013 HARSHA FISHMAN MD 788.1 pain during urination (dysuria) 02/19/2013 ALFREDO PETERSON DOA K 788.1 pain during urination (dysuria) 02/19/2013 LINN PETERSON DO K 788.1 pain during urination (dysuria) 02/19/2013 ALFREDO PETERSON DOA K 788.1 PAIN DURING URINATION (DYSURIA) 02/19/2013 SWATHI HART APRNA L 788.1 PAIN DURING URINATION (DYSURIA) 02/19/2013 ALFREDO PETERSON DOA K 788.1 PAIN DURING URINATION (DYSURIA) 02/19/2013 TANNER SOW KARIE L 788.1 PAIN DURING URINATION (DYSURIA) 02/19/2013 ALFREDO PETERSON DOA K 788.1 PAIN DURING URINATION (DYSURIA) 02/19/2013 FRANK MULLINS APRN 788.1 PAIN DURING URINATION (DYSURIA) 02/19/2013 TANNER SOW, KARIE L 788.1 PAIN DURING URINATION (DYSURIA) 02/19/2013 TANNER SOW, KARIE L 788.1 PAIN DURING URINATION (DYSURIA) 02/19/2013 [employer] SUPERVIS[employer], KARIE L 788.1 PAIN DURING URINATION (DYSURIA) 02/19/2013 SWATHI HART APRNA L 788.1 PAIN DURING URINATION (DYSURIA) 02/19/2013 LEANNA SUPERVISOR [employer], REBEKA R 788.1 PAIN DURING URINATION (DYSURIA) 07/01/2013 HARSHA FISHMAN MD 782.1 skin: a rash [as Sx] 07/01/2013 BENY CARRASCO APRN 782.1 skin: a rash [as Sx] 07/01/2013 BENY CARRASCO APRN 782.1 skin: a rash [as Sx] 07/01/2013 HARSHA FISHMAN MD 782.1 skin: a rash [as Sx] 07/01/2013 ALFREDO PETERSON DOA K 782.1 skin: a rash [as Sx] 07/01/2013 KRISTEN DUNN LINN K 782.1 skin: a rash [as Sx] 07/01/2013 ALFREDO PETERSON DOA K 782.1 SKIN: A RASH [ SX] 07/01/2013 KARIE HART APRN L 782.1 SKIN: A RASH [ SX] 07/01/2013 LINN PETERSON DO K 782.1 SKIN: A RASH [ SX] 07/01/2013 KARIE HART APRN L 782.1 SKIN: A RASH [ SX] 07/01/2013 ALFREDO PETERSON DOA K 782.1 SKIN: A RASH [ SX] 07/01/2013 FRANK MULLINS APRN 782.1 SKIN: A RASH [ SX] 07/01/2013 KARIE HART APRN L 782.1 SKIN: A RASH [ SX] 07/01/2013 KARIE HART APRN L 782.1 SKIN: A RASH [ SX] 07/01/2013 SWATHI HART APRNA L 782.1 SKIN: A RASH [ SX] 07/01/2013 KARIE HART APRN L 782.1 SKIN: A RASH [ SX] 07/01/2013 REBEKA RAM APRN R 782.1 SKIN: A RASH [ SX] 08/03/2013 RONDA BELLO, REJI Moffett Ot 276.52 HYPOVOLEMIA 08/03/2013 BRUEGGEMANN MD, REJI T Ot 458.0 ORTHOSTATIC HYPOTENSION 08/03/2013 REJI BOND MD Ot 599.0 URIN TRACT INFECTION NOS 08/03/2013 RONAD BELLO, REJI Moffett Ot 780.2 SYNCOPE AND COLLAPSE 08/03/2013 REJI BOND MD Ot 824.8 FX ANKLE NOS-CLOSED 08/03/2013 REJI BOND MD Ot 959.7 LOWER LEG INJURY NOS 08/03/2013 REJI BOND MD Ot E000.8 OTHER EXTERNAL CAUSE STATUS 08/03/2013 REJI BOND MD Ot E928.9 ACCIDENT NOS 08/13/2013 BENY CARRASCO APRN 300.00 AN ANXIETY UNSPEC 08/13/2013 BENY CARRASCO APRN 304.40 AMPHETAMINE DEPENDENCE 08/13/2013 BENY CARRASCO APRN 311 DEPRESSIVE DISORDER NOS 08/13/2013 HARSHA FISHMAN MD 300.00 AN ANXIETY UNSPEC 08/13/2013 HARSHA FISHMAN MD 304.40 AMPHETAMINE DEPENDENCE 08/13/2013 HARSHA FISHMAN MD 311 DEPRESSIVE DISORDER NOS 08/13/2013 PETERSON DO, LINN K 300.00 AN ANXIETY UNSPEC 08/13/2013 PETERSON DO, LINN K 304.40 AMPHETAMINE DEPENDENCE 08/13/2013 PETERSON DO, LINN K 311 DEPRESSIVE DISORDER NOS 08/13/2013 PETERSON DO, LINN K 300.00 AN ANXIETY UNSPEC 08/13/2013 PETERSON DO, LINN K 304.40 AMPHETAMINE DEPENDENCE 08/13/2013 PETERSON DO, LINN K 311 DEPRESSIVE DISORDER NOS 08/13/2013 PETERSON DO, LINN K 300.00 AN ANXIETY UNSPEC 08/13/2013 PETERSON DO, LINN K 304.40 AMPHETAMINE DEPENDENCE 08/13/2013 PETERSON DO, LINN K 311 DEPRESSIVE DISORDER NOS 08/13/2013 MAD[employer] SUPERVISOR [employer], KARIE L 300.00 AN ANXIETY UNSPEC 08/13/2013 MADL SUPERVISOR [employer], KARIE L 304.40 AMPHETAMINE DEPENDENCE 08/13/2013 MADL SUPERVISOR [employer], KARIE L 311 DEPRESSIVE DISORDER NOS 08/13/2013 PETERSON DO, LINN K 300.00 AN ANXIETY UNSPEC 08/13/2013 PETERSON DO, LINN K 304.40 AMPHETAMINE DEPENDENCE 08/13/2013 PETERSON DO, LINN K 311 DEPRESSIVE DISORDER NOS 08/13/2013 MAD[employer] SUPERVISOR [employer], KARIE L 300.00 AN ANXIETY UNSPEC 08/13/2013 MAD[employer] SUPERVISOR [employer], KARIE L 304.40 AMPHETAMINE DEPENDENCE 08/13/2013 MADL SUPERVISOR [employer], KARIE L 311 DEPRESSIVE DISORDER NOS 08/13/2013 PETERSON DO, LINN K 300.00 AN ANXIETY UNSPEC 08/13/2013 PETERSON DO, LINN K 304.40 AMPHETAMINE DEPENDENCE 08/13/2013 PETERSON DO, LINN K 311 DEPRESSIVE DISORDER NOS 08/13/2013 FRANK MULLINS APRN T 300.00 AN ANXIETY UNSPEC 08/13/2013 SUSANNA SOW FRANK T 304.40 AMPHETAMINE DEPENDENCE 08/13/2013 SUSANNA SOW FRANK T 311 DEPRESSIVE DISORDER NOS 08/13/2013 MADL SUPERVISOR [employer], KARIE L 300.00 AN ANXIETY UNSPEC 08/13/2013 MADL SUPERVISOR [employer], KARIE L 304.40 AMPHETAMINE DEPENDENCE 08/13/2013 MADL SUPERVISOR [employer], KARIE L 311 DEPRESSIVE DISORDER NOS 08/13/2013 MADL SUPERVISOR [employer] SUPPLY, KARIE L 300.00 AN ANXIETY UNSPEC 08/13/2013 MADL SUPERVISOR [employer], KARIE L 304.40 AMPHETAMINE DEPENDENCE 08/13/2013 MADL SUPERVISOR [employer], KARIE L 311 DEPRESSIVE DISORDER NOS 08/13/2013 MADL SUPERVISOR [employer] SUP[employer]Y, KARIE L 300.00 AN ANXIETY UNSPEC 08/13/2013 MADL SUPERVISOR [employer], KARIE L 304.40 AMPHETAMINE DEPENDENCE 08/13/2013 MADL SUPERVISOR [employer], KARIE L 311 DEPRESSIVE DISORDER NOS 08/13/2013 MADL SUPERVISOR [employer] SUP[employer]Y, KARIE L 300.00 AN ANXIETY UNSPEC 08/13/2013 MADL SUPERVISOR [employer], KARIE L 304.40 AMPHETAMINE DEPENDENCE 08/13/2013 MADL SUPERVISOR [employer], KARIE L 311 DEPRESSIVE DISORDER NOS 08/13/2013 LEANNA SOW REBEKA R 300.00 AN ANXIETY UNSPEC 08/13/2013 LEANNA VILLALOBOSN, REBEKA R 304.40 AMPHETAMINE DEPENDENCE 08/13/2013 LEANNA SOW REBEKA R 311 DEPRESSIVE DISORDER NOS 05/09/2014 PETERSON DO, LINN K 724.2 BACK PAIN, LOWER 05/09/2014 [employer]AD[employer] SUPERVISOR [employer], KARIE L 724.2 BACK PAIN, LOWER 05/09/2014 PETERSON DO, LINN K 724.2 BACK PAIN, LOWER 05/09/2014 MADL SUPERVISOR [employer], KARIE L 724.2 BACK PAIN, LOWER 05/09/2014 PETERSON DO, LINN K 724.2 BACK PAIN, LOWER 05/09/2014 FRANK MULLINS APRN 724.2 BACK PAIN, LOWER 05/09/2014 MADL SUPERVISOR [employer], KARIE L 724.2 BACK PAIN, LOWER 05/09/2014 MADL SUPERVISOR [employer], KARIE L 724.2 BACK PAIN, LOWER 05/09/2014 MADL SUPERVISOR [employer] SUPPLY, KARIE L 724.2 BACK PAIN, LOWER 05/09/2014 MADL SUPERVISOR [employer] SUP[employer], KARIE L 724.2 BACK PAIN, LOWER 05/09/2014 LEANNA SUPERVISOR [employer] SUPPLY, REBEKA R 724.2 BACK PAIN, LOWER 07/15/2014 PETERSON DO, LINN K 599.0 URINARY TRACT INFECTION 07/15/2014 PETERSON DO, LINN K 782.1 RASH AND OTHER NONSPECIFIC SKIN ERUPTION 07/15/2014 MADL SUPERVISOR [employer], KARIE L 599.0 URINARY TRACT INFECTION 07/15/2014 MADL SUPERVISOR [employer], KARIE L 782.1 RASH AND OTHER NONSPECIFIC SKIN ERUPTION 07/15/2014 PETERSON DO, LINN K 599.0 URINARY TRACT INFECTION 07/15/2014 PETERSON DO, LINN K 782.1 RASH AND OTHER NONSPECIFIC SKIN ERUPTION 07/15/2014 FRANK MULLINS APRN 599.0 URINARY TRACT INFECTION 07/15/2014 FRANK MULLINS APRN 782.1 RASH AND OTHER NONSPECIFIC SKIN ERUPTION 07/15/2014 MADL SUPERVISOR [employer], KARIE L 599.0 URINARY TRACT INFECTION 07/15/2014 MADL SUPERVISOR [employer]Y, KARIE L 782.1 RASH AND OTHER NONSPECIFIC SKIN ERUPTION 07/15/2014 MADL SUPERVISOR [employer] SUPPLY, KARIE L 599.0 URINARY TRACT INFECTION 07/15/2014 MADL SUPERVISOR [employer]PPLY, KARIE L 782.1 RASH AND OTHER NONSPECIFIC SKIN ERUPTION 07/15/2014 MADL SUPERVISOR [employer]PPLY, KARIE L 599.0 URINARY TRACT INFECTION 07/15/2014 MADL SUPERVISOR [employer], KARIE L 782.1 RASH AND OTHER NONSPECIFIC SKIN ERUPTION 07/15/2014 MADL SUPERVISOR [employer], KARIE L 599.0 URINARY TRACT INFECTION 07/15/2014 MADL SUPERVISOR [employer], KARIE L 782.1 RASH AND OTHER NONSPECIFIC SKIN ERUPTION 07/15/2014 LEANNA SUPERVISOR [employer] SU[employer]Y, REBEKA R 599.0 URINARY TRACT INFECTION 07/15/2014 LEANNA SUPERVISOR [employer], REBEKA R 782.1 RASH AND OTHER NONSPECIFIC SKIN ERUPTION 10/21/2014 MADL SUPERVISOR [employer], KARIE L 682.6 CELLULITIS AND ABSCESS OF LEG EXCEPT FOOT 10/21/2014 MADL SUPERVIS[employer], KARIE L 682.6 CELLULITIS AND ABSCESS OF LEG EXCEPT FOOT 10/21/2014 MADL SUPERVISOR [employer], KARIE L 682.6 CELLULITIS AND ABSCESS OF LEG EXCEPT FOOT 10/21/2014 MADL SUPERVISOR [employer], KARIE L 682.6 CELLULITIS AND ABSCESS OF LEG EXCEPT FOOT 10/21/2014 LEANNA SUPERVISOR [employer] SUPPLY, REBEKA R 682.6 CELLULITIS AND ABSCESS OF LEG EXCEPT FOOT 10/30/2014 MADL SUPERVISOR [employer], KARIE L 465.9 UPPER RESPIRATORY INFECTION 10/30/2014 MADL SUPERVISOR [employer], KARIE L 465.9 UPPER RESPIRATORY INFECTION 10/30/2014 MADL SUPERVISOR [employer], KARIE L 465.9 UPPER RESPIRATORY INFECTION 10/30/2014 LEANNA VILLALOBOSN, REBEKA R 465.9 UPPER RESPIRATORY INFECTION 12/05/2014 MADL SUPERVISOR [employer], KARIE L 709.9 UNSPECIFIED DISORDER OF SKIN AND SUBCUTANEOUS TISSUE 12/05/2014 CRISTOBALL SUPERVISOR [employer], KARIE L 709.9 UNSPECIFIED DISORDER OF SKIN AND SUBCUTANEOUS TISSUE 12/05/2014 LEANNA VILLALOBOSN, REBEKA R 709.9 UNSPECIFIED DISORDER OF SKIN AND SUBCUTANEOUS TISSUE 12/12/2014 Ot 285.9 12/12/2014 Ot 311 12/12/2014 Ot V58.69 12/12/2014 Ot V72.84 12/12/2014 JODY BELLO, CHEYANNE Carrera Ot 401.1 12/12/2014 JODY BELLO, CHEYANNE Carrera Ot 780.52 12/12/2014 JODY BELLO, CHEYANNE Carrera Ot 786.50 12/12/2014 JODY BELLO, CHEYANNE Carrera Ot 788.1 12/12/2014 SRAVANTHI BELLO, HARSHA Goddard Ot 070.70 12/12/2014 ILEANA OSBORNE SUPERVISOR [employer] Ot 305.1 TOBACCO USE DISORDER 12/12/2014 ILEANA OSBORNE SUPERVISOR [employer] Ot 496 CHR AIRWAY OBSTRUCT NEC 12/12/2014 ILEANA OSBORNE SUPERVISOR [employer] Ot 709.8 SKIN DISORDERS NEC 12/12/2014 ILEANA OSBORNE SUPERVISOR [employer] Ot 729.5 PAIN IN LIMB 12/13/2014 ANDREA BELLO, BARBARA Rodrigues Ot 700 CORNS AND CALLOSITIES 12/16/2014 JUAN C PETERSNO MD Ot 305.1 TOBACCO USE DISORDER 12/16/2014 JUAN C PETERSON MD Ot 496 CHR AIRWAY OBSTRUCT NEC 12/16/2014 JUAN C PETERSON MD Ot 709.8 SKIN DISORDERS NEC 07/27/2015 Ot V72.84 07/27/2015 CHEYANNE VERA MD Ot 401.1 07/27/2015 CHEYANNE VERA MD Ot 780.52 07/27/2015 CHEYANNE VERA MD Ot 786.50 07/27/2015 CHEYANNE VERA MD Ot 788.1 07/27/2015 HARSHA FISHMAN MD Ot 070.70 07/28/2015 BELKYS XIONG MD Ot B35.3 TINEA PEDIS 07/28/2015 BELKYS XIONG MD Ot F17.210 NICOTINE DEPENDENCE, CIGARETTES, UNCOMPL 07/28/2015 BELKYS XIONG MD Ot M54.5 LOW BACK PAIN 08/05/2015 Ot V72.84 08/05/2015 CHEYANNE VERA MD Ot 401.1 08/05/2015 CHEYANNE VERA MD Ot 780.52 08/05/2015 CHEYANNE VERA MD Ot 786.50 08/05/2015 CHEYANNE VERA MD Ot 788.1 08/05/2015 HARSHA FISHMAN MD Ot 070.70 08/05/2015 BARBARA MENDEZ MD Ot G89.29 OTHER CHRONIC PAIN 08/05/2015 BARBARA MENDEZ MD Ot M54.5 LOW BACK PAIN 08/18/2015 Ot V72.84 08/18/2015 CHEYANNE VERA MD Ot 401.1 08/18/2015 CHEYANNE VERA MD Ot 780.52 08/18/2015 CHEYANNE VERA MD Ot 786.50 08/18/2015 JODY BELLO, CHEYANNE Carrera Ot 788.1 08/18/2015 HARSHA FISHMAN MD Ot 070.70 08/18/2015 BELKYS XIONG MD Ot F17.210 NICOTINE DEPENDENCE, CIGARETTES, UNCOMPL 08/18/2015 BELKYS XIONG MD Ot M54.41 LUMBAGO WITH SCIATICA, RIGHT SIDE 08/25/2015 RONDA BELLO, REJI Moffett Ot F17.210 NICOTINE DEPENDENCE, CIGARETTES, UNCOMPL 08/25/2015 RONDA BELLO, REJI Moffett Ot G89.29 OTHER CHRONIC PAIN 08/25/2015 RONDA BELLO, REJI Moffett Ot M54.9 DORSALGIA, UNSPECIFIED 10/29/2015 Ot V72.84 10/29/2015 JODY BELLO, CHEYANNE Carrera Ot 401.1 10/29/2015 CHEYANNE VERA MD Ot 780.52 10/29/2015 CHEYANNE VERA MD Ot 786.50 10/29/2015 CHEYANNE VERA MD Ot 788.1 10/29/2015 HARSHA FISHMAN MD Ot 070.70 10/29/2015 REJI BOND MD Ot F17.210 NICOTINE DEPENDENCE, CIGARETTES, UNCOMPL 10/29/2015 REJI BOND MD Ot G89.29 OTHER CHRONIC PAIN 10/29/2015 REJI BOND MD Ot M54.5 LOW BACK PAIN 11/14/2015 Ot V72.84 11/14/2015 CHEYANNE VERA MD Ot 401.1 11/14/2015 CHEYANNE VERA MD Ot 780.52 11/14/2015 CHEYANNE VERA MD Ot 786.50 11/14/2015 CHEYANNE VERA MD Ot 788.1 11/14/2015 HARSHA FISHMAN MD Ot 070.70 11/14/2015 EDITA SHEN DO Ot F17.210 NICOTINE DEPENDENCE, CIGARETTES, UNCOMPL 11/14/2015 EDITA SHEN DO Ot F19.10 OTHER PSYCHOACTIVE SUBSTANCE ABUSE, UNCO 11/14/2015 EDITA SHEN DO Ot G89.29 OTHER CHRONIC PAIN 11/14/2015 EDITA SHEN DO Ot M54.5 LOW BACK PAIN 11/14/2015 EDITA SHEN DO Ot N39.0 URINARY TRACT INFECTION, SITE NOT SPECIF 11/25/2015 ILEANA OSBORNE SUPERVISOR [employer] Ot F12.10 CANNABIS ABUSE, UNCOMPLICATED 11/25/2015 ILEANA OSBORNE SUPERVISOR [employer] Ot S93.402A SPRAIN OF UNSPECIFIED LIGAMENT OF LEFT A 11/25/2015 ILEANA OSBORNE SUPERVISOR [employer] Ot X58.XXXA EXPOSURE TO OTHER SPECIFIED FACTORS, INI 11/25/2015 ILEANA OSBORNE SUPERVISOR [employer] Ot Y99.8 OTHER EXTERNAL CAUSE STATUS 11/26/2015 ILEAAN OSBORNE SUPERVISOR [employer] Ot F12.10 11/26/2015 ILEANA OSBORNE SUPERVISOR [employer] Ot S93.402A 11/26/2015 ILEANA OSBORNE SUPERVISOR [employer] Ot X58.XXXA 11/26/2015 ILEANA OSBORNE SUPERVISOR [employer] Ot Y99.8 11/30/2015 ILEANA OSBORNE SUPERVISOR [employer] SUP[employer] Ot F12.10 11/30/2015 ILEANA OSBRONE SUPERVISOR [employer]PPL[employer] Ot S93.402A 11/30/2015 ILEANA OSBORNE SUPERVISOR [employer] SUPPL[employer] Ot X58.XXXA 11/30/2015 ILEANA OSBORNE SUPERVISOR [employer] Ot Y99.8 12/02/2015 ILEANA OSBORNE SUPERVISOR [employer] SUPPL[employer] Ot F12.10 12/02/2015 ILEANA OSBORNE SUPERVISOR [employer] Ot S93.402A 12/02/2015 ILEANA OSBORNE SUPERVISOR [employer] Ot X58.XXXA 12/02/2015 ILEANA OSBORNE SUPERVISOR [employer] Ot Y99.8 12/15/2015 ILEANA OSBORNE SUPERVISOR [employer] SUPPL[employer] Ot F12.10 12/15/2015 ILEANA OSBORNE SUPERVISOR [employer] SUP[employer] Ot S93.402A 12/15/2015 ILEANA OSBORNE SUPERVISOR [employer] SUPPL[employer] Ot X58.XXXA 12/15/2015 ILEANA OSBORNE SUPERVISOR [employer] SUPPL[employer] Ot Y99.8 12/24/2015 ILEANA OSBORNE SUPERVISOR [employer] SUPPLY Ot F12.10 12/24/2015 ILEANA OSBORNE SUPERVISOR [employer] SUP[employer] Ot S93.402A 12/24/2015 ILEANA OSBORNE SUPERVISOR [employer] Ot X58.XXXA 12/24/2015 ILEANA OSBORNE SUPERVISOR [employer] Ot Y99.8 04/08/2016 Ot V72.84 EXAM PRE- OPERATIVE NOS 04/08/2016 JODY BELLO, CHEYANNE Carrera Ot 401.1 BENIGN HYPERTENSION 04/08/2016 JODY BELLO, CHEYANNE Carrera Ot 780.52 INSOMNIA, UNSPECIFIED 04/08/2016 CHEYANNE VERA MD Ot 786.50 CHEST PAIN NOS 04/08/2016 CHEYANNE VERA MD Ot 788.1 DYSURIA 04/08/2016 SRAVANTHI BELLO, HARSHA Goddard Ot 070.70 UNSPECIFIED VIRAL HEPATITIS C WITHOUT HE 04/08/2016 AC DO, EDITA K Ot F17.210 NICOTINE DEPENDENCE, CIGARETTES, UNCOMPL 04/08/2016 AC DO, EDITA K Ot G89.29 OTHER CHRONIC PAIN 04/08/2016 AC DO, EDITA K Ot M54.5 LOW BACK PAIN 04/11/2016 AC DO, EIDTA K Ot F17.210 NICOTINE DEPENDENCE, CIGARETTES, UNCOMPL 04/11/2016 AC DO, EDITA K Ot G89.29 OTHER CHRONIC PAIN 04/11/2016 AC DO, EDITA K Ot M54.5 LOW BACK PAIN 06/26/2016 Ot V72.84 EXAM PRE- OPERATIVE NOS 06/26/2016 JODY BELLO, CHEYANNE Carrera Ot 401.1 BENIGN HYPERTENSION 06/26/2016 CHEYANNE VERA MD Ot 780.52 INSOMNIA, UNSPECIFIED 06/26/2016 CHEYANNE VERA MD Ot 786.50 CHEST PAIN NOS 06/26/2016 CHEYANNE VERA MD Ot 788.1 DYSURIA 06/26/2016 SRAVANTHI BELLO, HARSHA Goddard Ot 070.70 UNSPECIFIED VIRAL HEPATITIS C WITHOUT HE 06/26/2016 REJI BOND MD Ot F17.210 NICOTINE DEPENDENCE, CIGARETTES, UNCOMPL 06/26/2016 REJI BOND MD Ot I10 ESSENTIAL (PRIMARY) HYPERTENSION 06/26/2016 REJI BOND MD Ot J44.9 CHRONIC OBSTRUCTIVE PULMONARY DISEASE, U 06/26/2016 REJI BOND MD Ot M54.6 PAIN IN THORACIC SPINE 06/26/2016 REJI BOND MD Ot R23.4 CHANGES IN SKIN TEXTURE 06/26/2016 REJI BOND MD Ot Z79.899 OTHER CUSTODIAL (CURRENT) DRUG THERAPY 07/01/2016 REJI BOND MD Ot F17.210 NICOTINE DEPENDENCE, CIGARETTES, UNCOMPL 07/01/2016 REJI BOND MD Ot I10 ESSENTIAL (PRIMARY) HYPERTENSION 07/01/2016 REJI BOND MD Ot J44.9 CHRONIC OBSTRUCTIVE PULMONARY DISEASE, U 07/01/2016 REJI BOND MD Ot M54.6 PAIN IN THORACIC SPINE 07/01/2016 REJI BOND MD Ot R23.4 CHANGES IN SKIN TEXTURE 07/01/2016 REJI BOND MD Ot Z79.899 OTHER CUSTODIAL (CURRENT) DRUG THERAPY 07/02/2016 REJI BOND MD Ot F17.210 NICOTINE DEPENDENCE, CIGARETTES, UNCOMPL 07/02/2016 REJI BOND MD Ot I10 ESSENTIAL (PRIMARY) HYPERTENSION 07/02/2016 REJI BOND MD Ot J44.9 CHRONIC OBSTRUCTIVE PULMONARY DISEASE, U 07/02/2016 REJI BOND MD Ot M54.6 PAIN IN THORACIC SPINE 07/02/2016 REJI BOND MD Ot R23.4 CHANGES IN SKIN TEXTURE 07/02/2016 REJI BOND MD Ot Z79.899 OTHER CARD GRINDER (CURRENT) DRUG THERAPY 07/17/2016 Ot V72.84 EXAM PRE- OPERATIVE NOS 07/17/2016 CHEYANNE VERA MD Ot 401.1 BENIGN HYPERTENSION 07/17/2016 CHEYANNE VERA MD Ot 780.52 INSOMNIA, UNSPECIFIED 07/17/2016 CHEYANNE VERA MD Ot 786.50 CHEST PAIN NOS 07/17/2016 CHEYANNE VERA MD Ot 788.1 DYSURIA 07/17/2016 SRAVANTHI BELLO, HARSHA Goddard Ot 070.70 UNSPECIFIED VIRAL HEPATITIS C WITHOUT HE 07/17/2016 LAURYN SHEN DOA K Ot F17.210 NICOTINE DEPENDENCE, CIGARETTES, UNCOMPL 07/17/2016 AC DUNN EDITA K Ot G89.29 OTHER CHRONIC PAIN 07/17/2016 AC DO EDITA K Ot I10 ESSENTIAL (PRIMARY) HYPERTENSION 07/17/2016 AC DUNN EDITA K Ot J44.9 CHRONIC OBSTRUCTIVE PULMONARY DISEASE, U 07/17/2016 AC EDITA DUNN Ot M54.5 LOW BACK PAIN 07/17/2016 AC EDITA DUNN Ot Z79.899 OTHER CARD GRINDER (CURRENT) DRUG THERAPY 07/19/2016 EDITA SHEN DO Ot F17.210 NICOTINE DEPENDENCE, CIGARETTES, UNCOMPL 07/19/2016 EDITA SHEN DO Ot G89.29 OTHER CHRONIC PAIN 07/19/2016 AC EDITA DUNN Ot I10 ESSENTIAL (PRIMARY) HYPERTENSION 07/19/2016 AC EDITA DUNN Ot J44.9 CHRONIC OBSTRUCTIVE PULMONARY DISEASE, U 07/19/2016 AC EDITA DUNN Ot M54.5 LOW BACK PAIN 07/19/2016 AC EDITA DUNN Ot Z79.899 OTHER CUSTODIAL (CURRENT) DRUG THERAPY 07/24/2016 AC EDITA DUNN Ot F17.210 NICOTINE DEPENDENCE, CIGARETTES, UNCOMPL 07/24/2016 AC EDITA DUNN Ot G89.29 OTHER CHRONIC PAIN 07/24/2016 AC EDITA DUNN Ot I10 ESSENTIAL (PRIMARY) HYPERTENSION 07/24/2016 AC EDITA DUNN Ot J44.9 CHRONIC OBSTRUCTIVE PULMONARY DISEASE, U 07/24/2016 AC EDITA DUNN Ot M54.5 LOW BACK PAIN 07/24/2016 AC EDITA DUNN Ot Z79.899 OTHER CARD GRINDER (CURRENT) DRUG THERAPY 08/28/2016 Ot V72.84 EXAM PRE- OPERATIVE NOS 08/28/2016 JODY BELLO, CHEYANNE Carrera Ot 401.1 BENIGN HYPERTENSION 08/28/2016 JODY BELLO, CHEYANNE Carrera Ot 780.52 INSOMNIA, UNSPECIFIED 08/28/2016 CHEYANNE VERA MD Ot 786.50 CHEST PAIN NOS 08/28/2016 CHEYANNE VERA MD Ot 788.1 DYSURIA 08/28/2016 SRAVANTHI BELLO, HARSHA Goddard Ot 070.70 UNSPECIFIED VIRAL HEPATITIS C WITHOUT HE 08/28/2016 ILEANA OSBORNE APRN Ot F17.210 NICOTINE DEPENDENCE, CIGARETTES, UNCOMPL 08/28/2016 ILEANA OSBORNE APRN Ot I10 ESSENTIAL (PRIMARY) HYPERTENSION 08/28/2016 ILEANA OSBORNE APRN Ot J44.9 CHRONIC OBSTRUCTIVE PULMONARY DISEASE, U 08/28/2016 ILEANA OSBORNE APRN Ot L84 CORNS AND CALLOSITIES 08/28/2016 ILEANA OSBORNE APRN Ot M54.41 LUMBAGO WITH SCIATICA, RIGHT SIDE 08/28/2016 ILEANA OSBORNE APRN Ot M79.671 PAIN IN RIGHT FOOT 08/28/2016 ILEANA OSBORNE APRN Ot Z79.899 OTHER CARD GRINDER (CURRENT) DRUG THERAPY 08/30/2016 ILEANA OSBORNE APRN Ot F17.210 NICOTINE DEPENDENCE, CIGARETTES, UNCOMPL 08/30/2016 ILEANA OSBORNE APRN Ot I10 ESSENTIAL (PRIMARY) HYPERTENSION 08/30/2016 ILEANA OSBORNE APRN Ot J44.9 CHRONIC OBSTRUCTIVE PULMONARY DISEASE, U 08/30/2016 ILEANA OSBORNE APRN Ot L84 CORNS AND CALLOSITIES 08/30/2016 ILEANA OSBORNE APRN Ot M54.41 LUMBAGO WITH SCIATICA, RIGHT SIDE 08/30/2016 ILEANA OSBORNE APRN Ot M79.671 PAIN IN RIGHT FOOT 08/30/2016 ILEANA OSBORNE APRN Ot Z79.899 OTHER CARD GRINDER (CURRENT) DRUG THERAPY 09/02/2016 ILEANA OSBORNE APRN Ot F17.210 NICOTINE DEPENDENCE, CIGARETTES, UNCOMPL 09/02/2016 ILEANA OSBORNE APRN Ot I10 ESSENTIAL (PRIMARY) HYPERTENSION 09/02/2016 ILEANA OSBORNE APRN Ot J44.9 CHRONIC OBSTRUCTIVE PULMONARY DISEASE, U 09/02/2016 ILEANA OSBORNE APRN Ot L84 CORNS AND CALLOSITIES 09/02/2016 ILEANA OSBORNE APRN Ot M54.41 LUMBAGO WITH SCIATICA, RIGHT SIDE 09/02/2016 ILEANA OSBORNE APRN Ot M79.671 PAIN IN RIGHT FOOT 09/02/2016 ILEANA OSBORNE APRN Ot Z79.899 OTHER CUSTODIAL (CURRENT) DRUG THERAPY 09/14/2016 ILEANA OSBORNE APRN Ot F17.210 NICOTINE DEPENDENCE, CIGARETTES, UNCOMPL 09/14/2016 ILEANA OSBORNE [employer]PER[employer] Ot I10 ESSENTIAL (PRIMARY) HYPERTENSION 09/14/2016 ILEANA OSBORNE APRN Ot J44.9 CHRONIC OBSTRUCTIVE PULMONARY DISEASE, U 09/14/2016 ILEANA OSBORNE APRN Ot L84 CORNS AND CALLOSITIES 09/14/2016 ILEANA OSBORNE APRN Ot M54.41 LUMBAGO WITH SCIATICA, RIGHT SIDE 09/14/2016 ILEANA OSBORNE APRN Ot M79.671 PAIN IN RIGHT FOOT 09/14/2016 ILEANA OSBORNE APRN Ot Z79.899 OTHER CUSTODIAL (CURRENT) DRUG THERAPY 09/27/2016 ILEANA OSBORNE APRN Ot F17.210 NICOTINE DEPENDENCE, CIGARETTES, UNCOMPL 09/27/2016 ILEANA OSBORNE [employer]PER[employer] Ot I10 ESSENTIAL (PRIMARY) HYPERTENSION 09/27/2016 ILEANA OSBORNE APRN Ot J44.9 CHRONIC OBSTRUCTIVE PULMONARY DISEASE, U 09/27/2016 ILEANA OSBORNE [employer] Ot L84 CORNS AND CALLOSITIES 09/27/2016 LIEANA OSBORNE APRN Ot M54.41 LUMBAGO WITH SCIATICA, RIGHT SIDE 09/27/2016 ILEANA OSBORNE APRN Ot M79.671 PAIN IN RIGHT FOOT 09/27/2016 ILEANA OSBORNE APRN Ot Z79.899 OTHER CUSTODIAL (CURRENT) DRUG THERAPY 10/17/2016 Ot V72.84 EXAM PRE- OPERATIVE NOS 10/17/2016 JODY BELLO, CHEYANNE Carrera Ot 401.1 BENIGN HYPERTENSION 10/17/2016 CHEYANNE VERA MD Ot 780.52 INSOMNIA, UNSPECIFIED 10/17/2016 CHEYANNE VERA MD Ot 786.50 CHEST PAIN NOS 10/17/2016 CHEYANNE VERA MD Ot 788.1 DYSURIA 10/17/2016 SRAVANTHI BELLO, HARSHA Goddard Ot 070.70 UNSPECIFIED VIRAL HEPATITIS C WITHOUT HE 10/18/2016 REJI BOND MD Ot F17.210 NICOTINE DEPENDENCE, CIGARETTES, UNCOMPL 10/18/2016 REJI BOND MD Ot G89.29 OTHER CHRONIC PAIN 10/18/2016 REJI BOND MD Ot I10 ESSENTIAL (PRIMARY) HYPERTENSION 10/18/2016 REJI BOND MD Ot J44.9 CHRONIC OBSTRUCTIVE PULMONARY DISEASE, U 10/18/2016 REJI BOND MD Ot M54.5 LOW BACK PAIN 03/16/2017 ISAC ISSA MD Ot A41.51 SEPSIS DUE TO ESCHERICHIA COLI [E. COLI] 03/16/2017 ISAC ISSA MD, Ot B19.20 UNSPECIFIED VIRAL HEPATITIS C WITHOUT HE 03/16/2017 ISAC ISSA MD, Ot B96.20 [facility] ESCHERICHIA COLI THE CAUSE OF DI 03/16/2017 ISAC ISSA MD, Ot B96.4 PROTEUS (MIRABILIS) (MORGANII) CAUSING D 03/16/2017 ISAC ISSA MD, Ot E86.0 DEHYDRATION 03/16/2017 ISAC ISSA MD, Ot E87.1 HYPO-OSMOLALITY AND HYPONATREMIA 03/16/2017 ISAC ISSA MD, Ot I10 ESSENTIAL (PRIMARY) HYPERTENSION 03/16/2017 ISAC ISSA MD, Ot J44.9 CHRONIC OBSTRUCTIVE PULMONARY DISEASE, U 03/16/2017 ISAC ISSA MD, Ot K59.00 CONSTIPATION, UNSPECIFIED 03/16/2017 ISAC ISSA MD, Ot M19.91 PRIMARY OSTEOARTHRITIS, UNSPECIFIED SITE 03/16/2017 ISAC ISSA MD, Ot M54.9 DORSALGIA, UNSPECIFIED 03/16/2017 ISAC ISSA MD, Ot N28.9 DISORDER OF KIDNEY AND URETER, UNSPECIFI 03/16/2017 ISAC ISSA MD, Ot N39.0 URINARY TRACT INFECTION, SITE NOT SPECIF 03/16/2017 ISAC ISSA MD, Ot T67.5XXA HEAT EXHAUSTION, UNSPECIFIED, INITIAL EN 03/16/2017 ISAC ISSA MD, Ot W18.30XA FALL ON SAME LEVEL, UNSPECIFIED, INITIAL 03/16/2017 ISAC ISSA MD, Ot Y92.[address] IN [facility] NON[facility] (PRIVATE) 03/16/2017 ISAC ISSA MD, Ot Z87.891 PERSONAL HISTORY OF NICOTINE DEPENDENCE 06/01/2017 Ileana Osborne 847.0 NECK SPRAIN 06/01/2017 Ileana Osborne S16.1XXA STRAIN OF MUSCLE, FASCIA AND TENDON AT NECK LEVEL, INIT 06/19/2017 Ot V72.84 EXAM PRE- OPERATIVE NOS 06/19/2017 CHEYANNE VERA MD Ot 401.1 BENIGN HYPERTENSION 06/19/2017 CHEYANNE VERA MD Ot 780.52 INSOMNIA, UNSPECIFIED 06/19/2017 CHEYANNE VERA MD Ot 786.50 CHEST PAIN NOS 06/19/2017 CHEYANNE VERA MD Ot 788.1 DYSURIA 06/19/2017 SRAVANTHI BELLO, HARSHA Goddard Ot 070.70 UNSPECIFIED VIRAL HEPATITIS C WITHOUT HE 06/19/2017 ILEANA OSBORNE APRN Ot A41.9 SEPSIS, UNSPECIFIED ORGANISM 06/19/2017 ILEANA OSBORNE APRN Ot E87.1 HYPO-OSMOLALITY AND HYPONATREMIA 06/19/2017 ILEANA OSBORNE APRN Ot I10 ESSENTIAL (PRIMARY) HYPERTENSION 06/19/2017 ILEANA OSBORNE APRN Ot J44.9 CHRONIC OBSTRUCTIVE PULMONARY DISEASE, U 06/19/2017 ILEANA OSBORNE APRN Ot N17.9 ACUTE KIDNEY FAILURE, UNSPECIFIED 06/19/2017 ILEANA OSBORNE APRN Ot N20.1 CALCULUS OF URETER 06/19/2017 ILEANA OSBORNE APRN Ot Z87.891 PERSONAL HISTORY OF NICOTINE DEPENDENCE 10/18/2017 ILEANA OSBORNE APRN Ot I10 ESSENTIAL (PRIMARY) HYPERTENSION 10/18/2017 ILEANA OSBORNE APRN Ot J11.1 FLU DUE TO UNIDENTIFIED INFLUENZA VIRUS 10/18/2017 ILEANA OSBORNE APRN Ot J44.9 CHRONIC OBSTRUCTIVE PULMONARY DISEASE, U 10/18/2017 ILEANA OSBORNE APRN Ot R09.81 NASAL CONGESTION 10/18/2017 ILEANA OSBORNE APRN Ot Z87.19 PERSONAL HISTORY OF OTHER DISEASES OF TH 10/18/2017 ILEANA OSBORNE APRN Ot Z87.891 PERSONAL HISTORY OF NICOTINE DEPENDENCE 10/18/2017 ILEANA OSBORNE APRN Ot Z88.2 ALLERGY STATUS TO SULFONAMIDES STATUS 10/18/2017 ILEANA OSBORNE APRN Ot Z90.49 ACQUIRED ABSENCE OF OTHER SPECIFIED PART Procedures Code [place] [address] ROUTINE VENIPUNCTURE 11/07/2012 98089 CBC 11/07/2012 20637 CMP 11/07/2012 [id number] GFR CALC (RESULT ONLY) 11/07/2012 77791 PT/INR 11/07/2012 [id number] HCV INDEX (RESULT ONLY) 11/07/2012 73323 HEPATITIS PROFILE 11/07/2012 54677 HIV ANTIBODIES (RML) 11/07/2012 18570 URINE DRUG SCREEN (IN-HOUSE ) 11/12/2012 62243 HEP C PCR QUANT W/SANJUANA 11/12/2012 27798 ROUTINE VENIPUNCTURE 12/05/2012 67006 UA W/ CULTURE IF INDICATED 12/05/2012 33392 URINE DRUG SCREEN (IN-HOUSE ) 12/05/2012 22757 PSA FREE AND TOTAL 12/05/2012 [place] 12/17/2012 98072 UA LONG DIP 01/08/2013 16525 URINE DRUG SCREEN (IN-HOUSE ) 01/08/2013 35612 CULTURE URINE 01/10/2013 41531 URINE PCP GC/MS 01/10/2013 52262 ROUTINE VENIPUNCTURE 01/31/2013 40684 EKG, TRACING 01/31/2013 78071 HEMOGLOBIN (IN-HOUSE) 01/31/2013 92487 URINE DRUG SCREEN (IN-HOUSE ) 01/31/2013 06614 MAGNESIUM 01/31/2013 86948 BMP 01/31/2013 3761882 GFR CALC (RESULT ONLY) 01/31/2013 2000F BLOOD PRESSURE CHECK 02/04/2013 41100 ROUTINE VENIPUNCTURE 02/07/2013 14915 UA W/ CULTURE IF INDICATED 02/07/2013 43270 BMP 02/07/2013 [id number] GFR CALC (RESULT ONLY) 02/07/2013 53990 ROUTINE VENIPUNCTURE 02/15/2013 52515 URINE DRUG SCREEN (IN-HOUSE ) 02/15/2013 08607 CBC 02/15/2013 15888 CMP 02/15/2013 [id number] GFR CALC (RESULT ONLY) 02/15/2013 74185 PT/INR 02/16/2013 60807 TSH 02/16/2013 90291 URINE DRUG SCREEN (IN-HOUSE ) 02/19/2013 51931 UA W/ CULTURE IF INDICATED 02/19/2013 77633 TROPONIN, QUANT 02/19/2013 22687 D-DIMER 02/20/2013 80277 LIVER BIOPSY, ULTRASOUND- GUIDED 02/21/2013 12324 URINE OXYCODONE GC/MS 02/21/2013 00286 HEP C PCR QUANT (SERIAL) 02/21/2013 87738 STRESS ECHO 02/21/2013 21421 OXIMETRY 02/21/2013 PSYCHIATR TK AGUILAR 02/21/2013 94708 URINE DRUG SCREEN (IN-HOUSE ) 03/08/2013 70825 ROUTINE VENIPUNCTURE 04/25/2013 21605 CBC 04/25/2013 77382 CMP 04/25/2013 [id number] GFR CALC (RESULT ONLY) 04/25/2013 96666 ROUTINE VENIPUNCTURE 05/06/2013 19917 CBC 05/06/2013 97939 CMP 05/06/2013 [id number] GFR CALC (RESULT ONLY) 05/06/2013 41913 HEP C PCR QUANT (SERIAL) 05/14/2013 07095 ROUTINE VENIPUNCTURE 07/09/2013 91628 MAGNESIUM 07/09/2013 79239 CBC 07/09/2013 [id number] GFR CALC (RESULT ONLY) 07/09/2013 02446 CMP 07/09/2013 00449 ROUTINE VENIPUNCTURE 09/30/2013 45962 URINE DRUG SCREEN (IN-HOUSE ) 09/30/2013 46558 [facility] 09/30/2013 [id number] GFR CALC (RESULT ONLY) 09/30/2013 91609 CBC 09/30/2013 29555 PT/INR 09/30/2013 93504 HEP C PCR QUANT (SERIAL) 2013 21658 ROUTINE VENIPUNCTURE 01/07/2014 82903 CMP 01/07/2014 70108 CBC 01/07/2014 663085 [facility] DRUG SCREEN 01/07/2014 50073 [facility] 04/21/2014 UROLOGY ORALIA, OBI 04/21/2014 18540 ROUTINE VENIPUNCTURE 06/18/2014 93504 URINE DRUG SCREEN (IN-HOUSE ) 06/18/2014 47858 CBC 06/18/2014 [id number] GFR CALC (RESULT ONLY) 06/18/2014 48922 [facility] 06/18/2014 11276 HEP C PCR QUANT (SERIAL) 06/19/2014 10750 CULTURE URINE 07/15/2014 39158 UA W/ CULTURE IF INDICATED 07/15/2014 13599 URINE DRUG SCREEN (IN-HOUSE ) 07/15/2014 44143 URINE DRUG SCREEN (IN-HOUSE ) 08/11/2014 36813 THERAPUTIC INJ SQ/IM 12/12/2014 J1885 TORADOL INJ 12/12/2014 PHYSICAL WOUND CARE, MTC 12/15/2014 Results Test Result Range Bacterial blood culture - 03/11/17 14:20 FREE TEXT EXTERNAL REFER TO BLOOD CULTURE M7716 NRG QUANTITY OF GROWTH Isolated NRG Bacterial blood culture [id number] NRG Complete blood count (CBC) with automated white blood cell (WBC) differential - 03/11/17 14:33 Blood leukocytes automated count (number/volume) 5.2 10*3/uL 4.3-11.0 Blood erythrocytes automated count (number/volume) 4.63 10*6/uL 4.35-5.85 Venous blood hemoglobin measurement (mass/volume) 13.9 g/dL 13.3-17.7 Blood hematocrit (volume fraction) 40 % 40-54 Automated erythrocyte mean corpuscular volume 86 [foz_us] 80-99 Automated erythrocyte mean corpuscular hemoglobin (mass per erythrocyte) 30 pg 25-34 Automated erythrocyte mean corpuscular hemoglobin concentration measurement ( mass/volume) 35 g/dL 32-36 Automated erythrocyte distribution width ratio 13.9 % 10.0-14.5 Automated blood platelet count (count/volume) 46 10*3/uL 130-400 Automated blood platelet mean volume measurement 12.3 [foz_us] 7.4-10.4 Automated blood neutrophils/100 leukocytes 89 % 42-75 Automated blood lymphocytes/100 leukocytes 7 % 12-44 Blood monocytes/100 leukocytes 3 % 0-12 Automated blood eosinophils/100 leukocytes 0 % 0-10 Automated blood basophils/100 leukocytes 0 % 0-10 Blood neutrophils automated count (number/volume) 4.7 10*3 1.8-7.8 Blood lymphocytes automated count (number/volume) 0.4 10*3 1.0-4.0 Blood monocytes automated count (number/volume) 0.2 10*3 0.0-1.0 Automated eosinophil count 0.0 10*3/uL 0.0-0.3 Automated blood basophil count (count/volume) 0.0 10*3/uL 0.0-0.1 PT panel in platelet poor plasma by coagulation assay - 03/11/17 14:33 Prothrombin time (PT) in platelet poor plasma by coagulation assay 12.2 s 12.2-14.7 INR in platelet poor plasma or blood by coagulation assay 0.9 0.8-1.4 Activated partial thromboplastin time (aPTT) in platelet poor plasma bycoagulation assay - 03/11/17 14:33 Activated partial thromboplastin time (aPTT) in platelet poor plasma bycoagulation assay 25 s 24-35 Blood lactic acid measurement (moles/volume) - 03/11/17 14:33 Blood lactic acid measurement (moles/volume) 3.40 mmol/L 0.50-2.00 Comprehensive metabolic panel - 03/11/17 14:33 Serum or plasma sodium measurement (moles/volume) 129 mmol/L 135-145 Serum or plasma potassium measurement (moles/volume) 3.5 mmol/L 3.6-5.0 Serum or plasma chloride measurement (moles/volume) 95 mmol/L 98-107 Carbon dioxide 17 mmol/L 21-32 Serum or plasma anion gap determination (moles/volume) 17 mmol/L 5-14 Serum or plasma urea nitrogen measurement (mass/volume) 32 mg/dL 7-18 Serum or plasma creatinine measurement (mass/volume) 1.45 mg/dL 0.60-1.30 Serum or plasma urea nitrogen/creatinine mass ratio 22 0 -20 Serum or plasma creatinine measurement with calculation of estimated glomerular filtration rate 50 NRG Serum or plasma glucose measurement (mass/volume) 90 mg/dL 70-105 Serum or plasma calcium measurement (mass/volume) 8.3 mg/dL 8.5-10.1 Serum or plasma total bilirubin measurement (mass/volume) 1.4 mg/dL 0.1-1.0 Serum or plasma alkaline phosphatase measurement (enzymatic activity/volume) 125 U/L 40-136 Serum or plasma aspartate aminotransferase measurement (enzymatic activity/ volume) 29 U/L 5-34 Serum or plasma alanine aminotransferase measurement (enzymatic activity/volume ) 23 U/L 0-55 Serum or plasma protein measurement (mass/volume) 7.0 g/dL 6.4-8.2 Serum or plasma albumin measurement (mass/volume) 2.8 g/dL 3.2-4.5 Serum or plasma ethanol measurement (mass/volume) - 03/11/17 14:33 Serum or plasma ethanol measurement (mass/volume) < mg/dL <10 Blood manual differential performed detection - 03/11/17 14:33 Blood monocytes/100 leukocytes 3 % NRG Manual blood segmented neutrophils/100 leukocytes 88 % NRG Blood band neutrophils/100 leukocytes 0 % NRG Manual blood lymphocytes/100 leukocytes 8 % NRG Manual eosinophils/100 leukocytes in nose 1 % NRG Manual blood basophils/100 leukocytes 0 % NRG Blood erythrocyte morphology finding identification NORMAL NRG Bacterial blood culture - 03/11/17 14:33 FREE TEXT EXTERNAL SENSITIVE TO CEFTRIAXONE (03/12/17) NRG QUANTITY OF GROWTH Isolated NRG Bacterial blood culture [id number] NRG FREE TEXT ENTRY 2 COMPLETE SENSITIVITY REPORTED 03/13/17 [facility] FREE TEXT ENTRY 3 AT 7:15. [facility] Bacterial susceptibility panel - 03/11/17 14:33 Gentamicin susceptibility test by minimum inhibitory concentration < = NRG Trimethoprim/sulfamethoxazole susceptibility test by minimum inhibitoryconcentration <= NRG Ampicillin susceptibility test by minimum inhibitory concentration > = NRG Tobramycin susceptibility test by minimum inhibitory concentration < = NRG Cefazolin susceptibility test by minimum inhibitory concentration < = NRG Ceftriaxone susceptibility test by minimum inhibitory concentration <= NRG Ampicillin/sulbactam susceptibility test by minimum inhibitory concentration 16 NRG Piperacillin/tazobactam susceptibility test by minimum inhibitory concentration <= NRG Ciprofloxacin susceptibility test by minimum inhibitory concentration >= NRG Meropenem susceptibility test by minimum inhibitory concentration < = NRG Aztreonam susceptibility test by minimum inhibitory concentration < = NRG Extended spectrum beta lactamase (ESBL) producing bacteria susceptibility test by minimum inhibitory concentration - [facility] Magnesium - 03/11/17 14:36 Magnesium 1.8 mg/dL 1.8-2.4 Serum or plasma creatine kinase measurement (enzymatic activity/volume) - 03/11 14:36 Serum or plasma creatine kinase measurement (enzymatic activity/volume) 44 U/L 30-200 Urine drug screening test - 03/11/17 14:52 Urine phencyclidine detection by screening method NEGATIVE NEGATIVE Urine benzodiazepines detection by screening method NEGATIVE NEGATIVE Urine cocaine detection NEGATIVE NEGATIVE Urine amphetamines detection by screening method NEGATIVE NEGATIVE Urine methamphetamine detection by screening method NEGATIVE NEGATIVE Urine cannabinoids detection by screening method NEGATIVE NEGATIVE Urine opiates detection by screening method NEGATIVE NEGATIVE Urine barbiturates detection NEGATIVE NEGATIVE Screening urine tricyclic antidepressants detection NEGATIVE NEGATIVE Urine methadone detection by screening method NEGATIVE NEGATIVE Urine oxycodone detection NEGATIVE NEGATIVE Urine propoxyphene detection NEGATIVE NEGATIVE Complete urinalysis with reflex to culture - 03/11/17 14:52 Urine color determination YELLOW NRG Urine clarity determination SLIGHTLY CLOUDY NRG Urine pH measurement by test strip 7 5-9 Specific gravity of urine by test strip 1.005 1.016- 1.022 Urine protein assay by test strip, semi-quantitative 3+ NEGATIVE Urine glucose detection by automated test strip NEGATIVE NEGATIVE Erythrocytes detection in urine sediment by light microscopy 5+ NEGATIVE Urine ketones detection by automated test strip 1+ NEGATIVE Urine nitrite detection by test strip NEGATIVE NEGATIVE Urine total bilirubin detection by test strip NEGATIVE NEGATIVE Urine urobilinogen measurement by automated test strip (mass/volume) 1 mg/dL NORMAL Urine leukocyte esterase detection by dipstick 3+ NEGATIVE Automated urine sediment erythrocyte count by microscopy (number/high power field) [HPF] NRG Automated urine sediment leukocyte count by microscopy (number/high power field ) TNTC NRG Bacteria detection in urine sediment by light microscopy LARGE NRG Squamous epithelial cells detection in urine sediment by light microscopy 5-10 NRG Crystals detection in urine sediment by light microscopy NONE NRG Casts detection in urine sediment by light microscopy NONE NRG Mucus detection in urine sediment by light microscopy NEGATIVE NRG Complete urinalysis with reflex to culture YES NRG Bacterial urine culture - 03/11/17 14:52 Bacterial urine culture [id number] NRG COLONY COUNT <10,000 NRG FTX;REPORTABLE SENSITIVE TO CEFTRIAXONE (03/12) NR FREE TEXT ENTRY 2 COMPLETE SENSITIVITY REPORTED 03/13/17 NR FREE TEXT ENTRY 3 AT 7:15. [facility] Bacterial susceptibility panel - 03/11/17 14:52 Gentamicin susceptibility test by minimum inhibitory concentration < = NRG Trimethoprim/sulfamethoxazole susceptibility test by minimum inhibitoryconcentration <= NRG Ampicillin susceptibility test by minimum inhibitory concentration > = NRG Tobramycin susceptibility test by minimum inhibitory concentration < = NRG Cefazolin susceptibility test by minimum inhibitory concentration < = NRG Ceftriaxone susceptibility test by minimum inhibitory concentration <= NRG Ampicillin/sulbactam susceptibility test by minimum inhibitory concentration 16 NRG Piperacillin/tazobactam susceptibility test by minimum inhibitory concentration <= NRG Ciprofloxacin susceptibility test by minimum inhibitory concentration >= NRG Meropenem susceptibility test by minimum inhibitory concentration < = NRG Nitrofurantoin susceptibility test by minimum inhibitory concentration <= NRG Aztreonam susceptibility test by minimum inhibitory concentration < = NRG Extended spectrum beta lactamase (ESBL) producing bacteria susceptibility test by minimum inhibitory concentration - [facility] Bacterial susceptibility panel - 03/11/17 14:52 Gentamicin susceptibility test by minimum inhibitory concentration < = NRG Trimethoprim/sulfamethoxazole susceptibility test by minimum inhibitoryconcentration <= NRG Ampicillin susceptibility test by minimum inhibitory concentration < = NRG Tobramycin susceptibility test by minimum inhibitory concentration < = NRG Cefazolin susceptibility test by minimum inhibitory concentration < = NRG Ceftriaxone susceptibility test by minimum inhibitory concentration <= NRG Ampicillin/sulbactam susceptibility test by minimum inhibitory concentration <= NRG Piperacillin/tazobactam susceptibility test by minimum inhibitory concentration <= NRG Ciprofloxacin susceptibility test by minimum inhibitory concentration <= NRG Meropenem susceptibility test by minimum inhibitory concentration < = NRG Nitrofurantoin susceptibility test by minimum inhibitory concentration 128 NRG Aztreonam susceptibility test by minimum inhibitory concentration < = NRG Serum or plasma lactate measurement (moles/volume) - 03/11/17 16:45 Serum or plasma lactate measurement (moles/volume) 0.99 mmol/L 0.50-2.00 Methicillin resistant Staphylococcus aureus (MRSA) screening culture - 17:50 MRSA SCREEN RESULT MRSA ISOLATED NRG Blood lactic acid measurement (moles/volume) - 03/12/17 01:01 Blood lactic acid measurement (moles/volume) 2.55 mmol/L 0.50-2.00 Serum or plasma lactate measurement (moles/volume) - 03/12/17 03:10 Serum or plasma lactate measurement (moles/volume) 2.58 mmol/L 0.50-2.00 Comprehensive metabolic panel - 03/12/17 03:10 Serum or plasma sodium measurement (moles/volume) 130 mmol/L 135-145 Serum or plasma potassium measurement (moles/volume) 3.0 mmol/L 3.6-5.0 Serum or plasma chloride measurement (moles/volume) 104 mmol/L 98-107 Carbon dioxide 18 mmol/L 21-32 Serum or plasma anion gap determination (moles/volume) 8 mmol/L 5-14 Serum or plasma urea nitrogen measurement (mass/volume) 31 mg/dL 7-18 Serum or plasma creatinine measurement (mass/volume) 1.28 mg/dL 0.60-1.30 Serum or plasma urea nitrogen/creatinine mass ratio 24 0 -20 Serum or plasma creatinine measurement with calculation of estimated glomerular filtration rate 58 NRG Serum or plasma glucose measurement (mass/volume) 161 mg/dL 70-105 Serum or plasma calcium measurement (mass/volume) 7.6 mg/dL 8.5-10.1 Serum or plasma total bilirubin measurement (mass/volume) 0.6 mg/dL 0.1-1.0 Serum or plasma alkaline phosphatase measurement (enzymatic activity/volume) 146 U/L 40-136 Serum or plasma aspartate aminotransferase measurement (enzymatic activity/ volume) 46 U/L 5-34 Serum or plasma alanine aminotransferase measurement (enzymatic activity/volume ) 25 U/L 0-55 Serum or plasma protein measurement (mass/volume) 5.3 g/dL 6.4-8.2 Serum or plasma albumin measurement (mass/volume) 2.2 g/dL 3.2-4.5 Complete blood count (CBC) with automated white blood cell (WBC) differential - 03/12/17 03:10 Blood leukocytes automated count (number/volume) 10.8 10*3/uL 4.3-11.0 Blood erythrocytes automated count (number/volume) 3.72 10*6/uL 4.35-5.85 Venous blood hemoglobin measurement (mass/volume) 11.1 g/dL 13.3-17.7 Blood hematocrit (volume fraction) 32 % 40-54 Automated erythrocyte mean corpuscular volume 87 [foz_us] 80-99 Automated erythrocyte mean corpuscular hemoglobin (mass per erythrocyte) 30 pg 25-34 Automated erythrocyte mean corpuscular hemoglobin concentration measurement ( mass/volume) 34 g/dL 32-36 Automated erythrocyte distribution width ratio 14.0 % 10.0-14.5 Automated blood platelet count (count/volume) 48 10*3/uL 130-400 Automated blood platelet mean volume measurement 13.2 [foz_us] 7.4-10.4 Automated blood neutrophils/100 leukocytes 85 % 42-75 Automated blood lymphocytes/100 leukocytes 5 % 12-44 Blood monocytes/100 leukocytes 9 % 0-12 Automated blood eosinophils/100 leukocytes 0 % 0-10 Automated blood basophils/100 leukocytes 0 % 0-10 Blood neutrophils automated count (number/volume) 9.2 10*3 1.8-7.8 Blood lymphocytes automated count (number/volume) 0.5 10*3 1.0-4.0 Blood monocytes automated count (number/volume) 1.0 10*3 0.0-1.0 Automated eosinophil count 0.0 10*3/uL 0.0-0.3 Automated blood basophil count (count/volume) 0.0 10*3/uL 0.0-0.1 Blood manual differential performed detection - 03/12/17 03:10 Blood monocytes/100 leukocytes 7 % NRG Manual blood segmented neutrophils/100 leukocytes 88 % NRG Blood band neutrophils/100 leukocytes 0 % NRG Manual blood lymphocytes/100 leukocytes 4 % NRG Manual eosinophils/100 leukocytes in nose 1 % NRG Manual blood basophils/100 leukocytes 0 % NRG Blood dohle body detection by light microscopy SLIGHT NRG Blood poikilocytosis detection by light microscopy SLIGHT NRG Whole blood basic metabolic panel - 03/12/17 03:10 Serum or plasma sodium measurement (moles/volume) 131 mmol/L 135-145 Serum or plasma potassium measurement (moles/volume) 3.0 mmol/L 3.6-5.0 Serum or plasma chloride measurement (moles/volume) 104 mmol/L 98-107 Carbon dioxide 17 mmol/L 21-32 Serum or plasma anion gap determination (moles/volume) 10 mmol/L 5-14 Serum or plasma urea nitrogen measurement (mass/volume) 31 mg/dL 7-18 Serum or plasma creatinine measurement (mass/volume) 1.28 mg/dL 0.60-1.30 Serum or plasma urea nitrogen/creatinine mass ratio 24 0 -20 Serum or plasma creatinine measurement with calculation of estimated glomerular filtration rate 58 NRG Serum or plasma glucose measurement (mass/volume) 154 mg/dL 70-105 Serum or plasma calcium measurement (mass/volume) 6.9 mg/dL 8.5-10.1 Serum or plasma phosphate measurement (mass/volume) - 03/12/17 03:10 Serum or plasma phosphate measurement (mass/volume) 2.0 mg/dL 2.3-4.7 Magnesium - 03/12/17 03:10 Magnesium 1.8 mg/dL 1.8-2.4 Blood lactic acid measurement (moles/volume) - 03/12/17 08:30 Blood lactic acid measurement (moles/volume) 0.82 mmol/L 0.50-2.00 Automated blood complete blood count (hemogram) panel - 03/13/17 05:50 Blood leukocytes automated count (number/volume) 12.7 10*3/uL 4.3-11.0 Blood erythrocytes automated count (number/volume) 4.14 10*6/uL 4.35-5.85 Venous blood hemoglobin measurement (mass/volume) 12.6 g/dL 13.3-17.7 Blood hematocrit (volume fraction) 36 % 40-54 Automated erythrocyte mean corpuscular volume 86 [foz_us] 80-99 Automated erythrocyte mean corpuscular hemoglobin (mass per erythrocyte) 30 pg 25-34 Automated erythrocyte mean corpuscular hemoglobin concentration measurement ( mass/volume) 36 g/dL 32-36 Automated erythrocyte distribution width ratio 14.5 % 10.0-14.5 Automated blood platelet count (count/volume) 102 10*3/uL 130-400 Automated blood platelet mean volume measurement 11.4 [foz_us] 7.4-10.4 Whole blood basic metabolic panel - 03/13/17 05:50 Serum or plasma sodium measurement (moles/volume) 132 mmol/L 135-145 Serum or plasma potassium measurement (moles/volume) 3.5 mmol/L 3.6-5.0 Serum or plasma chloride measurement (moles/volume) 107 mmol/L 98-107 Carbon dioxide 18 mmol/L 21-32 Serum or plasma anion gap determination (moles/volume) 7 mmol/L 5-14 Serum or plasma urea nitrogen measurement (mass/volume) 21 mg/dL 7-18 Serum or plasma creatinine measurement (mass/volume) 1.24 mg/dL 0.60-1.30 Serum or plasma urea nitrogen/creatinine mass ratio 17 0 -20 Serum or plasma creatinine measurement with calculation of estimated glomerular filtration rate 60 NRG Serum or plasma glucose measurement (mass/volume) 97 mg/dL 70-105 Serum or plasma calcium measurement (mass/volume) 7.7 mg/dL 8.5-10.1 Complete blood count (CBC) with automated white blood cell (WBC) differential - 03/15/17 05:55 Blood leukocytes automated count (number/volume) 12.9 10*3/uL 4.3-11.0 Blood erythrocytes automated count (number/volume) 3.68 10*6/uL 4.35-5.85 Venous blood hemoglobin measurement (mass/volume) 11.2 g/dL 13.3-17.7 Blood hematocrit (volume fraction) 32 % 40-54 Automated erythrocyte mean corpuscular volume 87 [foz_us] 80-99 Automated erythrocyte mean corpuscular hemoglobin (mass per erythrocyte) 30 pg 25-34 Automated erythrocyte mean corpuscular hemoglobin concentration measurement ( mass/volume) 35 g/dL 32-36 Automated erythrocyte distribution width ratio 14.6 % 10.0-14.5 Automated blood platelet count (count/volume) 317 10*3/uL 130-400 Automated blood platelet mean volume measurement 10.6 [foz_us] 7.4-10.4 Automated blood neutrophils/100 leukocytes 85 % 42-75 Automated blood lymphocytes/100 leukocytes 7 % 12-44 Blood monocytes/100 leukocytes 7 % 0-12 Automated blood eosinophils/100 leukocytes 1 % 0-10 Automated blood basophils/100 leukocytes 0 % 0-10 Blood neutrophils automated count (number/volume) 11.0 10*3 1.8-7.8 Blood lymphocytes automated count (number/volume) 0.9 10*3 1.0-4.0 Blood monocytes automated count (number/volume) 0.9 10*3 0.0-1.0 Automated eosinophil count 0.1 10*3/uL 0.0-0.3 Automated blood basophil count (count/volume) 0.0 10*3/uL 0.0-0.1 Complete blood count (CBC) with automated white blood cell (WBC) differential - 03/16/17 05:45 Blood leukocytes automated count (number/volume) 9.7 10*3/uL 4.3-11.0 Blood erythrocytes automated count (number/volume) 3.54 10*6/uL 4.35-5.85 Venous blood hemoglobin measurement (mass/volume) 10.7 g/dL 13.3-17.7 Blood hematocrit (volume fraction) 31 % 40-54 Automated erythrocyte mean corpuscular volume 87 [foz_us] 80-99 Automated erythrocyte mean corpuscular hemoglobin (mass per erythrocyte) 30 pg 25-34 Automated erythrocyte mean corpuscular hemoglobin concentration measurement ( mass/volume) 35 g/dL 32-36 Automated erythrocyte distribution width ratio 14.6 % 10.0-14.5 Automated blood platelet count (count/volume) 399 10*3/uL 130-400 Automated blood platelet mean volume measurement 9.7 [foz_us] 7.4-10.4 Automated blood neutrophils/100 leukocytes 79 % 42-75 Automated blood lymphocytes/100 leukocytes 13 % 12-44 Blood monocytes/100 leukocytes 7 % 0-12 Automated blood eosinophils/100 leukocytes 1 % 0-10 Automated blood basophils/100 leukocytes 0 % 0-10 Blood neutrophils automated count (number/volume) 7.6 10*3 1.8-7.8 Blood lymphocytes automated count (number/volume) 1.3 10*3 1.0-4.0 Blood monocytes automated count (number/volume) 0.6 10*3 0.0-1.0 Automated eosinophil count 0.1 10*3/uL 0.0-0.3 Automated blood basophil count (count/volume) 0.0 10*3/uL 0.0-0.1 Urine Culture, Routine - 04/07/17 17:14 Urine Culture, Routine Note Complete blood count (CBC) with automated white blood cell (WBC) differential - 06/19/17 11:46 Blood leukocytes automated count (number/volume) 7.7 10*3/uL 4.3-11.0 Blood erythrocytes automated count (number/volume) 4.31 10*6/uL 4.35-5.85 Venous blood hemoglobin measurement (mass/volume) 13.1 g/dL 13.3-17.7 Blood hematocrit (volume fraction) 44 % 40-54 Automated erythrocyte mean corpuscular volume 89 [foz_us] 80-99 Automated erythrocyte mean corpuscular hemoglobin (mass per erythrocyte) 30 pg 25-34 Automated erythrocyte mean corpuscular hemoglobin concentration measurement ( mass/volume) 34 g/dL 32-36 Automated erythrocyte distribution width ratio 13.9 % 10.0-14.5 Automated blood platelet count (count/volume) 213 10*3/uL 130-400 Automated blood platelet mean volume measurement 10.3 [foz_us] 7.4-10.4 Automated blood neutrophils/100 leukocytes 90 % 42-75 Automated blood lymphocytes/100 leukocytes 7 % 12-44 Blood monocytes/100 leukocytes 3 % 0-12 Automated blood eosinophils/100 leukocytes 0 % 0-10 Automated blood basophils/100 leukocytes 0 % 0-10 Blood neutrophils automated count (number/volume) 11.9 10*3 1.8-7.8 Blood lymphocytes automated count (number/volume) 0.9 10*3 1.0-4.0 Blood monocytes automated count (number/volume) 0.3 10*3 0.0-1.0 Automated eosinophil count 0.0 10*3/uL 0.0-0.3 Automated blood basophil count (count/volume) 0.0 10*3/uL 0.0-0.1 Comprehensive metabolic panel - 06/19/17 11:46 Serum or plasma potassium measurement (moles/volume) 5.3 mmol/L 3.6-5.0 Serum or plasma chloride measurement (moles/volume) 94 mmol/L 98-107 Serum or plasma anion gap determination (moles/volume) 16 mmol/L 5-14 Serum or plasma urea nitrogen measurement (mass/volume) 25 mg/dL 7-18 Serum or plasma creatinine measurement (mass/volume) 1.53 mg/dL 0.60-1.30 Serum or plasma urea nitrogen/creatinine mass ratio 16 NRG Serum or plasma creatinine measurement with calculation of estimated glomerular filtration rate 47 NRG Serum or plasma glucose measurement (mass/volume) 92 mg/dL 70-105 Serum or plasma calcium measurement (mass/volume) 10.1 mg/dL 8.5-10.1 Serum or plasma total bilirubin measurement (mass/volume) 1.4 mg/dL 0.1-1.0 Serum or plasma alkaline phosphatase measurement (enzymatic activity/volume) 82 U/L 40-136 Serum or plasma aspartate aminotransferase measurement (enzymatic activity/ volume) 27 U/L 5-34 Serum or plasma alanine aminotransferase measurement (enzymatic activity/volume ) 21 U/L 0-55 Serum or plasma protein measurement (mass/volume) 9.2 g/dL 6.4-8.2 Serum or plasma albumin measurement (mass/volume) 3.6 g/dL 3.2-4.5 Blood manual differential performed detection - 06/19/17 11:46 Blood monocytes/100 leukocytes 4 % NRG Manual blood segmented neutrophils/100 leukocytes 83 % NRG Blood band neutrophils/100 leukocytes 2 % NRG Manual blood lymphocytes/100 leukocytes 11 % NRG Manual eosinophils/100 leukocytes in nose 0 % NRG Manual blood basophils/100 leukocytes 0 % NRG Blood erythrocyte morphology finding identification NORMAL NRG Erythrocyte sedimentation rate by westergren method - 06/19/17 11:46 Erythrocyte sedimentation rate by westergren method 71 mm 0-30 Bacterial blood culture - 06/19/17 12:09 FREE TEXT EXTERNAL SENSITIVITY REPORTED 06/21/17 8:10 NRG QUANTITY OF GROWTH Isolated NR Bacterial blood culture [id number] [facility] Bacterial susceptibility panel - 06/19/17 12:09 Gentamicin susceptibility test by minimum inhibitory concentration < = NRG Trimethoprim/sulfamethoxazole susceptibility test by minimum inhibitoryconcentration <= NRG Ampicillin susceptibility test by minimum inhibitory concentration > = NRG Tobramycin susceptibility test by minimum inhibitory concentration < = NRG Cefazolin susceptibility test by minimum inhibitory concentration < = NRG Ceftriaxone susceptibility test by minimum inhibitory concentration <= NRG Ampicillin/sulbactam susceptibility test by minimum inhibitory concentration 16 NRG Piperacillin/tazobactam susceptibility test by minimum inhibitory concentration <= NRG Ciprofloxacin susceptibility test by minimum inhibitory concentration >= NRG Meropenem susceptibility test by minimum inhibitory concentration < = NRG Aztreonam susceptibility test by minimum inhibitory concentration < = NRG Extended spectrum beta lactamase (ESBL) producing bacteria susceptibility test by minimum inhibitory concentration - NRG Blood lactic acid measurement (moles/volume) - 06/19/17 12:18 Blood lactic acid measurement (moles/volume) 2.41 mmol/L 0.50-2.00 Comprehensive metabolic panel - 06/19/17 12:18 Serum or plasma sodium measurement (moles/volume) 124 mmol/L 135-145 Serum or plasma potassium measurement (moles/volume) 3.9 mmol/L 3.6-5.0 Serum or plasma chloride measurement (moles/volume) 93 mmol/L 98-107 Carbon dioxide 17 mmol/L 21-32 Serum or plasma anion gap determination (moles/volume) 14 mmol/L 5-14 Serum or plasma urea nitrogen measurement (mass/volume) 26 mg/dL 7-18 Serum or plasma creatinine measurement (mass/volume) 1.50 mg/dL 0.60-1.30 Serum or plasma urea nitrogen/creatinine mass ratio 17 NRG Serum or plasma creatinine measurement with calculation of estimated glomerular filtration rate 48 NRG Serum or plasma glucose measurement (mass/volume) 99 mg/dL 70-105 Serum or plasma calcium measurement (mass/volume) 9.2 mg/dL 8.5-10.1 Serum or plasma total bilirubin measurement (mass/volume) 1.4 mg/dL 0.1-1.0 Serum or plasma alkaline phosphatase measurement (enzymatic activity/volume) 76 U/L 40-136 Serum or plasma aspartate aminotransferase measurement (enzymatic activity/ volume) 18 U/L 5-34 Serum or plasma alanine aminotransferase measurement (enzymatic activity/volume ) 18 U/L 0-55 Serum or plasma protein measurement (mass/volume) 7.7 g/dL 6.4-8.2 Serum or plasma albumin measurement (mass/volume) 3.2 g/dL 3.2-4.5 Serum or plasma ethanol measurement (mass/volume) - 06/19/17 12:18 Serum or plasma ethanol measurement (mass/volume) < mg/dL <10 Bacterial blood culture - 06/19/17 12:18 FREE TEXT EXTERNAL REFER TO BLOOD CULTURE [id number] NRG QUANTITY OF GROWTH Isolated NRG Bacterial blood culture [id number] NRG Complete urinalysis with reflex to culture - 06/19/17 13:30 Urine color determination YELLOW NRG Urine clarity determination SLIGHTLY CLOUDY NRG Urine pH measurement by test strip 6 5-9 Specific gravity of urine by test strip 1.015 1.016- 1.022 Urine protein assay by test strip, semi-quantitative 3+ NEGATIVE Urine glucose detection by automated test strip NEGATIVE NEGATIVE Erythrocytes detection in urine sediment by light microscopy 5+ NEGATIVE Urine ketones detection by automated test strip 2+ NEGATIVE Urine nitrite detection by test strip POSITIVE NEGATIVE Urine total bilirubin detection by test strip NEGATIVE NEGATIVE Urine urobilinogen measurement by automated test strip (mass/volume) 4 mg/dL NORMAL Urine leukocyte esterase detection by dipstick 3+ NEGATIVE Automated urine sediment erythrocyte count by microscopy (number/high power field) [HPF] NRG Automated urine sediment leukocyte count by microscopy (number/high power field ) [HPF] NRG Bacteria detection in urine sediment by light microscopy LARGE NRG Squamous epithelial cells detection in urine sediment by light microscopy 2-5 NRG Crystals detection in urine sediment by light microscopy NONE NRG Casts detection in urine sediment by light microscopy PRESENT NRG Mucus detection in urine sediment by light microscopy NEGATIVE NRG Complete urinalysis with reflex to culture YES NRG Amorphous sediment detection in urine sediment by light microscopy MOD VEENA URATES NRG Granular casts detection in urine sediment by light microscopy 2-5 NRG Urine drug screening test - 06/19/17 13:30 Urine phencyclidine detection by screening method NEGATIVE NEGATIVE Urine benzodiazepines detection by screening method NEGATIVE NEGATIVE Urine cocaine detection NEGATIVE NEGATIVE Urine amphetamines detection by screening method POSITIVE NEGATIVE Urine methamphetamine detection by screening method POSITIVE NEGATIVE Urine cannabinoids detection by screening method NEGATIVE NEGATIVE Urine opiates detection by screening method NEGATIVE NEGATIVE Urine barbiturates detection NEGATIVE NEGATIVE Screening urine tricyclic antidepressants detection NEGATIVE NEGATIVE Urine methadone detection by screening method NEGATIVE NEGATIVE Urine oxycodone detection NEGATIVE NEGATIVE Urine propoxyphene detection NEGATIVE NEGATIVE Bacterial urine culture - 06/19/17 13:30 Bacterial urine culture [id number] NRG COLONY COUNT <10,000 NRG FTX;REPORTABLE SENSITIVITY REPORTED 06/21/17 8:15 NRG Bacterial susceptibility panel - 06/19/17 13:30 Gentamicin susceptibility test by minimum inhibitory concentration < = NRG Trimethoprim/sulfamethoxazole susceptibility test by minimum inhibitoryconcentration <= NRG Ampicillin susceptibility test by minimum inhibitory concentration > = NRG Tobramycin susceptibility test by minimum inhibitory concentration < = NRG Cefazolin susceptibility test by minimum inhibitory concentration < = NRG Ceftriaxone susceptibility test by minimum inhibitory concentration <= NRG Ampicillin/sulbactam susceptibility test by minimum inhibitory concentration 16 NRG Piperacillin/tazobactam susceptibility test by minimum inhibitory concentration <= NRG Ciprofloxacin susceptibility test by minimum inhibitory concentration >= NRG Meropenem susceptibility test by minimum inhibitory concentration < = NRG Nitrofurantoin susceptibility test by minimum inhibitory concentration <= NRG Aztreonam susceptibility test by minimum inhibitory concentration < = NRG Extended spectrum beta lactamase (ESBL) producing bacteria susceptibility test by minimum inhibitory concentration - [facility] Bacterial susceptibility panel - 06/19/17 13:30 Gentamicin susceptibility test by minimum inhibitory concentration < = NRG Trimethoprim/sulfamethoxazole susceptibility test by minimum inhibitoryconcentration <= NRG Ampicillin susceptibility test by minimum inhibitory concentration < = NRG Tobramycin susceptibility test by minimum inhibitory concentration < = NRG Cefazolin susceptibility test by minimum inhibitory concentration < = NRG Ceftriaxone susceptibility test by minimum inhibitory concentration <= NRG Ampicillin/sulbactam susceptibility test by minimum inhibitory concentration <= NRG Piperacillin/tazobactam susceptibility test by minimum inhibitory concentration <= NRG Ciprofloxacin susceptibility test by minimum inhibitory concentration <= NRG Meropenem susceptibility test by minimum inhibitory concentration < = NRG Nitrofurantoin susceptibility test by minimum inhibitory concentration 128 NRG Aztreonam susceptibility test by minimum inhibitory concentration < = NRG Serum or plasma lactate measurement (moles/volume) - 06/19/17 14:30 Serum or plasma lactate measurement (moles/volume) 1.01 mmol/L 0.50-2.00 Complete blood count (CBC) with automated white blood cell (WBC) differential - 10/18/17 17:40 Blood leukocytes automated count (number/volume) 7.4 10*3/uL 4.3-11.0 Blood erythrocytes automated count (number/volume) 4.55 10*6/uL 4.35-5.85 Venous blood hemoglobin measurement (mass/volume) 14.2 g/dL 13.3-17.7 Blood hematocrit (volume fraction) 42 % 40-54 Automated erythrocyte mean corpuscular volume 92 [foz_us] 80-99 Automated erythrocyte mean corpuscular hemoglobin (mass per erythrocyte) 31 pg 25-34 Automated erythrocyte mean corpuscular hemoglobin concentration measurement ( mass/volume) 34 g/dL 32-36 Automated erythrocyte distribution width ratio 12.8 % 10.0-14.5 Automated blood platelet count (count/volume) 263 10*3/uL 130-400 Automated blood platelet mean volume measurement 9.6 [foz_us] 7.4-10.4 Automated blood neutrophils/100 leukocytes 73 % 42-75 Automated blood lymphocytes/100 leukocytes 12 % 12-44 Blood monocytes/100 leukocytes 15 % 0-12 Automated blood eosinophils/100 leukocytes 0 % 0-10 Automated blood basophils/100 leukocytes 0 % 0-10 Blood neutrophils automated count (number/volume) 5.4 10*3 1.8-7.8 Blood lymphocytes automated count (number/volume) 0.9 10*3 1.0-4.0 Blood monocytes automated count (number/volume) 1.1 10*3 0.0-1.0 Automated eosinophil count 0.0 10*3/uL 0.0-0.3 Automated blood basophil count (count/volume) 0.0 10*3/uL 0.0-0.1 Blood lactic acid measurement (moles/volume) - 10/18/17 17:40 Blood lactic acid measurement (moles/volume) 0.82 mmol/L 0.50-2.00 Comprehensive metabolic panel - 10/18/17 17:40 Serum or plasma sodium measurement (moles/volume) 133 mmol/L 135-145 Serum or plasma potassium measurement (moles/volume) 4.5 mmol/L 3.6-5.0 Serum or plasma chloride measurement (moles/volume) 99 mmol/L 98-107 Carbon dioxide 20 mmol/L 21-32 Serum or plasma anion gap determination (moles/volume) 14 mmol/L 5-14 Serum or plasma urea nitrogen measurement (mass/volume) 19 mg/dL 7-18 Serum or plasma creatinine measurement (mass/volume) 0.93 mg/dL 0.60-1.30 Serum or plasma urea nitrogen/creatinine mass ratio 20 NRG Serum or plasma creatinine measurement with calculation of estimated glomerular filtration rate > NRG Serum or plasma glucose measurement (mass/volume) 94 mg/dL 70-105 Serum or plasma calcium measurement (mass/volume) 8.7 mg/dL 8.5-10.1 Serum or plasma total bilirubin measurement (mass/volume) 0.6 mg/dL 0.1-1.0 Serum or plasma alkaline phosphatase measurement (enzymatic activity/volume) 63 U/L 40-136 Serum or plasma aspartate aminotransferase measurement (enzymatic activity/ volume) 32 U/L 5-34 Serum or plasma alanine aminotransferase measurement (enzymatic activity/volume ) 28 U/L 0-55 Serum or plasma protein measurement (mass/volume) 7.7 g/dL 6.4-8.2 Serum or plasma albumin measurement (mass/volume) 3.7 g/dL 3.2-4.5 Bacterial blood culture - 10/18/17 17:40 Bacterial blood culture NR Influenza virus A and B antigen detection - 10/18/17 19:10 FLU RESULT NEGATIVE FOR INFLUENZA A AND B ANTIGENS BY IA NRG Encounters ACCT No. Visit Date/Time Discharge Status Pt. Type Provider Facility Loc./Unit Complaint [id number] 12/26/2014 08:50:00 12/26/2014 23:59:59 CLS Outpatient REBEKA RAM APRN [id number] 12/12/2014 09:04:00 12/12/2014 23:59:59 CLS Outpatient CRISTOBALMiya [employer], KARIE L [id number] 12/05/2014 13:51:00 12/05/2014 23:59:59 CLS Outpatient CRISTOBALMiya [employer] L [id number] 10/30/2014 14:22:00 10/30/2014 23:59:59 CLS Outpatient CRISTOBALMiya SOW KARIE L [id number] 10/21/2014 11:09:00 10/21/2014 23:59:59 CLS Outpatient TANNER VILLALOBOSNMIKALKARIE L [id number] 10/06/2014 11:59:00 10/06/2014 23:59:59 CLS Outpatient FRANK MULLINS APRN [id number] 08/11/2014 09:04:00 08/11/2014 23:59:59 CLS Outpatient CRISTOBALMiya SOW KARIE L [id number] 08/11/2014 09:04:00 08/11/2014 23:59:59 CLS Outpatient LINN PETERSON DO [id number] 07/15/2014 13:26:00 07/15/2014 23:59:59 CLS Outpatient LINN PETERSON DO [id number] 06/18/2014 09:37:00 06/18/2014 23:59:59 CLS Outpatient KARIE HART APRN [id number] 05/09/2014 08:48:00 05/09/2014 23:59:59 CLS Outpatient LINN PETERSON DO [id number] 04/21/2014 11:18:00 04/21/2014 23:59:59 CLS Outpatient LINN PETERSON DO [id number] 01/07/2014 10:34:00 01/07/2014 23:59:59 CLS Outpatient LINN PETERSON DO [id number] 09/30/2013 10:27:00 09/30/2013 23:59:59 CLS Outpatient HARSHA FISHMAN MD [id number] 08/13/2013 14:12:00 08/13/2013 23:59:59 CLS Outpatient BENY CARRASCO APRN [id number] 08/13/2013 14:12:00 08/13/2013 23:59:59 CLS Outpatient BENY CARRASCO APRN [id number] 07/09/2013 09:06:00 07/09/2013 23:59:59 CLS Outpatient HARSHA FISHMAN MD [id number] 05/27/2013 13:27:00 05/27/2013 23:59:59 CLS Outpatient TK AGUILAR DO [id number] 12/17/2012 14:28:00 12/17/2012 23:59:59 CLS Outpatient LINN PETERSON DO Jamie [id number] 12/05/2012 13:17:00 12/05/2012 23:59:59 CLS Outpatient [id number] 11/07/2012 09:46:00 11/07/2012 23:59:59 CLS Outpatient ARIK GREEN MD [id number] 05/06/2013 10:38:00 Document Registration [id number] 04/25/2013 10:20:00 Document Registration [id number] 03/08/2013 13:56:00 Document Registration [id number] 03/08/2013 13:56:00 Document Registration [id number] 02/19/2013 10:44:00 Document Registration [id number] 02/07/2013 14:17:00 Document Registration [id number] 02/07/2013 14:17:00 Document Registration [id number] 02/04/2013 11:09:00 Document Registration [id number] 01/29/2013 08:41:00 Document Registration [id number] 01/08/2013 10:58:00 Document Registration [id number] 01/08/2013 10:58:00 Document Registration [id number] 11/07/2012 09:46:00 Document Registration [id number] 04/12/2017 03:07:00 Document Registration [email or web address] 12/15/2014 16:13:43 ACT Document Registration [email or web address] 08/23/2013 16:34:17 ACT Document Registration [id number] 06/01/2017 22:32:00 06/01/2017 23:16:00 DIS Outpatient Ileana Osborne [id number] 06/01/2017 22:58:58 Document Registration [id number] 10/18/2017 16:33:00 10/18/2017 21:16:00 DIS Emergency ILEANA OSBORNE APRN [facility] ER SOA,FEVER,CHILLS [id number] 06/19/2017 11:15:00 06/19/2017 15:22:00 DIS Emergency ILEANA OSBORNE APRN [facility] ER LT RIB PAIN [id number] 03/11/2017 15:44:00 03/16/2017 16:05:00 DIS Inpatient ISAC ISSA MD [facility] 4TH SEPSIS,UTI,HEAT EXHAUSTION,HYPONATREMIA [id number] 10/17/2016 22:09:00 10/18/2016 00:49:00 DIS Emergency REJI BOND MD [facility] ER BACK PAIN [id number] 08/28/2016 15:16:00 08/28/2016 16:40:00 DIS Emergency ILEANA OSBORNE APRN [facility] ER BACK PAIN/R FOOT INJ [id number] 07/17/2016 16:39:00 07/17/2016 18:24:00 DIS Emergency EDITA SHEN DO [facility] ER BACK PAIN [id number] 06/26/2016 14:17:00 06/26/2016 14:53:00 DIS Emergency REJI BOND MD [facility] ER L SIDE OF BACK AND NECK LOCKING UP [id number] 04/08/2016 09:17:00 04/08/2016 10:13:00 DIS Emergency AC DUNNEDITA Jamie [facility] ER BACK PAIN [id number] 11/25/2015 16:03:00 11/25/2015 16:40:00 DIS Emergency ILEANA OSBORNE APRN [facility] ER BROKE LEFT ANKLE [id number] 11/14/2015 16:06:00 11/14/2015 19:22:00 DIS Emergency AC EDITA DUNN Jamie [facility] ER NECK/BACK PAIN [id number] 10/29/2015 04:48:00 10/29/2015 05:33:00 DIS Emergency REJI BOND MD [facility] ER BACK PAIN [id number] 08/25/2015 04:59:00 08/25/2015 05:36:00 DIS Emergency REJI BOND MD [facility] ER BACK PAIN [id number] 08/18/2015 10:04:00 08/18/2015 10:48:00 DIS Emergency BELKYS XIONG MD [facility] ER BACK PAIN [id number] 08/05/2015 06:38:00 08/05/2015 06:59:00 DIS Emergency BARBARA MENDEZ MD [facility] ER BACK PAIN [id number] 07/27/2015 23:49:00 07/28/2015 00:36:00 DIS Emergency BELKYS XIONG MD [facility] ER BACK PAIN [id number] 12/15/2014 10:05:00 12/16/2014 14:00:00 DIS Outpatient JUAN C PETERSON MD [facility] WOUNDCARE [id number] 12/13/2014 08:51:00 12/13/2014 09:13:00 DIS Emergency BARBARA MENDEZ MD [facility] ER FOOT PAIN [id number] 12/12/2014 12:20:00 12/12/2014 12:55:00 DIS Emergency ILEANA OSBORNE APRN [facility] ER FOOT PAIN [id number] 09/26/2013 15:10:00 09/26/2013 23:59:59 CLS Outpatient [id number] 09/05/2013 15:10:00 09/05/2013 23:59:59 CLS Outpatient [id number] 08/03/2013 14:18:00 08/03/2013 18:55:00 DIS Emergency RONDA BELLO, REJI Moffett [facility] ER R ANKLE PAIN [id number] 03/18/2013 09:33:00 03/18/2013 23:59:59 CLS Outpatient HARSHA FISHMAN MD [facility] RAD HEP C [id number] 02/27/2013 12:25:00 02/27/2013 23:59:59 CLS Outpatient CHEYANNE VERA MD [facility] CARD RECURRENT CHEST PAIN [id number] 12/12/2014 12:21:00 Document Registration [id number] 01/02/2013 08:22:00 Document Registration [id number] 01/07/2010 11:06:00 Document Registration [id number] 08/16/2017 16:40:00 08/16/2017 23:59:59 CLS Outpatient KARIE HART APRN WALK IN CARE
[2018-02-07 20:44] VITALS: BP 147/91
[2018-02-07] MEDS ORDERED: KETOROLAC 60 MG/2 ML VIAL IM ONE (20:45)
== END 2018-02-07 20:44 | disposition home or self-care (01) ==
LOC: EDUNIT# 20:16 → ER 20:18
DX: M54.5 Low back pain (principal); J44.9 Chronic obstructive pulmonary disease, unspecified; I10 Essential (primary) hypertension; F17.210 Nicotine dependence, cigarettes, uncomplicated; Z88.2 Allergy status to sulfonamides; Z87.19 Personal history of other diseases of the digestive system; Z90.49 Acquired absence of other specified parts of digestive tract
CPT/HCPCS: 96372; 99284

== ENCOUNTER 2018-11-29 16:54 | Inpatient (IN) | payer OTHER, MEDICARE, MEDICAID ==
[~2018-11-29] VITALS: Ht 180.3 cm; Wt 94.0 kg
[2018-11-29] VITALS (13 sets, daily range): BP systolic 85–117; BP diastolic 50–102
[~2018-11-29 16:54] MED LIST changes: +HYDR-4226 PO; -HYDR-757 PO; +TRAZ-190 PO; -TRAZ100T92 PO
[2018-11-29] MEDS ORDERED: DOXE100C4 PO (17:06)
[2018-11-29] MEDS ORDERED: PRD20T PO (17:06)
[2018-11-29] MEDS ORDERED: AMIT150T PO (17:06)
[2018-11-29] MEDS ORDERED: RT-ALBUINH IH (17:06)
[2018-11-29] MEDS ORDERED: TERB25PO MC (17:06)
[2018-11-29] MEDS ORDERED: NS IV 1000 ML 1,000 ML IV SCH ×3 (17:15→21:30)
[2018-11-29] MEDS ORDERED: meTOprolol 5 MG/5 ML (LOPRESSOR) VIAL IV ONE (17:15)
[2018-11-29] MEDS ORDERED: IBUPROFEN 800 MG (MOTRIN) TAB PO ONE (17:15)
[2018-11-29] MEDS ORDERED: methylPREDNISolone 125 MG (Solu-MEDROL) VIAL IVP ONE (17:15)
--- NOTE | 2018-11-29 17:16 | ED Cough/URI ---
General Chief Complaint: Respiratory Problems Stated Complaint: DIZZY,BACK PAIN Nursing Triage Note: pt presents to ed with complaints of soa and back pain with deep breaths x 1 month but worse today. pt also reports some dizziness today. Sepsis Screen: Possible Sepsis Risk Source: patient Exam Limitations: no limitations History of Present Illness Date Seen by Provider: Nov 29, 2018 Time Seen by Provider: 17:14 Initial Comments To ER per private vehicle from [facility] where he has been incarcerated for the past 9 months. Reports low back pain and upper back pain worse with deep breathing for the past 1 month. Reports some dizziness today. He is febrile at 102 on arrival. History of COPD. Timing/Duration: constant, getting worse Severity/Quality: dry cough Associated Symptoms: cough, shortness of breath, wheezing Allergies and Home Medications Allergies Coded Allergies: Sulfa (Sulfonamide Antibiotics) (Verified Allergy, Unknown, 11/14/15) PT STATES "I JUST CAN'T HAVE IT" Home Medications Albuterol Sulfate 1 Puff Puff, 2 PUFF IH Q4H, (Reported) 1 PUFF = 90 MCG Doxepin HCl 100 Mg Capsule, 100 MG PO BID, (Reported) Methylprednisolone 4 Mg Tab.ds.pk, 4 MG PO UD Prescribed by: ILEANA OSBORNE on 02/07/182034 Prednisone 20 Mg Tab, 20 MG PO DAILY, (Reported) Take 3 tabs(60mg)daily, decrease by 1/2 tab(10mg)daily. Patient Home Medication List Home Medication List Reviewed: Yes Review of Systems Review of Systems Constitutional: see HPI EENTM: see HPI Respiratory: no symptoms reported Cardiovascular: no symptoms reported Genitourinary: no symptoms reported Musculoskeletal: no symptoms reported Skin: no symptoms reported Psychiatric/Neurological: No Symptoms Reported Hematologic/Lymphatic: No Symptoms Reported Immunological/Allergic: no symptoms reported (10) Past Xoonjjv-Diqvdg-Sxzxnh Hx Patient Social History Alcohol Use: Occasionally Uses Recreational Drug Use: No Smoking Status: Former Smoker Type Used: Cigarettes Former Smoker, Quit: Feb 25, 2017 Recent Foreign Travel: No Contact w/Someone Who Travel: No Recent Infectious Disease Expo: No Recent Hopitalizations: No Immunizations Up To Date Tetanus Booster (TDap): Unknown Date of Pneumonia Vaccine: Nov 16, 2012 Date of Influenza Vaccine: Oct 14, 2016 Seasonal Allergies Seasonal Allergies: No Past Medical History Surgeries: Yes Appendectomy Respiratory: Yes COPD Currently Using CPAP: No Currently Using BIPAP: No Cardiac: No Hypertension Neurological: No Reproductive Disorders: No Genitourinary: No (current uti) Gastrointestinal: No Hepatitis Musculoskeletal: No Arthritis, Chronic Back Pain Endocrine: No HEENT: No Cancer: No Psychosocial: No Integumentary: Yes (ulcer present to lle) Blood Disorders: No Adverse Reaction/Blood Tranf: No Family Medical History Patient reports no known family medical history. Physical Exam Vital Signs - First Documented 11/29/18 11/29/18 16:59 18:09 Temp 102.8 Pulse 155 Resp 22 Pulse Ox 93 O2 Delivery Room Air Capillary Refill : Less Than 3 Seconds Height: 5'11.00" Weight: 205lbs. 4.0oz. 92.524730pn; 22.9 BMI Method:Stated General Appearance: WD/WN, no apparent distress Eyes: Bilateral Eye Normal Inspection, Bilateral Eye PERRL, Bilateral Eye EOMI HEENT: PERRL/EOMI, normal ENT inspection Respiratory: no respiratory distress, no accessory muscle use, decreased breath sounds, wheezing Cardiovascular: tachycardia Gastrointestinal: normal bowel sounds, non tender, soft Neurologic/Psychiatric: alert, normal mood/affect, oriented x 3 Skin: normal color, warm/dry Focused Exam Lactate Level 11/29/18 17:46: Lactic Acid Level 3.04*H Lactic Acid Level Laboratory Tests Test 11/29/18 17:46 Lactic Acid Level 3.04 MMOL/L (0.50-2.00) *H Progress/Results/Core Measures Suspected Sepsis Recent Fever Within 48 Hours: Yes Infection Criteria Present: Suspected New Infection New/Unexplained Altered Menta: No Sepsis Screen: Possible Sepsis Risk SIRS Temperature:102.8 Pulse: 155 Respiratory Rate: 22 Laboratory Tests 11/29/18 17:17: White Blood Count 10.1 Blood Pressure / Mean: 11/29/18 17:46: Lactic Acid Level 3.04*H Laboratory Tests 11/29/18 17:17: Creatinine 2.63H, Platelet Count 205, Total Bilirubin 1.4H Results/Orders Lab Results Laboratory Tests Test 11/29/18 17:17 11/29/18 17:46 11/29/18 18:51 Range/Units White Blood Count 10.1 4.3-11.0 10^3/uL Red Blood Count 4.90 4.35-5.85 10^6/uL Hemoglobin 14.8 13.3-17.7 G/DL Hematocrit 42 40-54 % Mean Corpuscular Volume 86 80-99 FL Mean Corpuscular Hemoglobin 30 25-34 PG Mean Corpuscular Hemoglobin Concent 35 32-36 G/DL Red Cell Distribution Width 13.4 10.0-14.5 % Platelet Count 205 130-400 10^3/uL Mean Platelet Volume 10.6 H 7.4-10.4 FL Neutrophils (%) (Auto) 93 H 42-75 % Lymphocytes (%) (Auto) 5 L 12-44 % Monocytes (%) (Auto) 2 0-12 % Eosinophils (%) (Auto) 0 0-10 % Basophils (%) (Auto) 0 0-10 % Neutrophils # (Auto) 9.4 H 1.8-7.8 X 10^3 Lymphocytes # (Auto) 0.5 L 1.0-4.0 X 10^3 Monocytes # (Auto) 0.2 0.0-1.0 X 10^3 Eosinophils # (Auto) 0.0 0.0-0.3 10^3/uL Basophils # (Auto) 0.0 0.0-0.1 10^3/uL Neutrophils % (Manual) 81 % Lymphocytes % (Manual) 5 % Monocytes % (Manual) 1 % Eosinophils % (Manual) 0 % Basophils % (Manual) 0 % Band Neutrophils 13 % Blood Morphology Comment NORMAL D-Dimer 5.42 H 0.00-0.49 UG/ML Sodium Level 136 135-145 MMOL/L Potassium Level 4.4 3.6-5.0 MMOL/L Chloride Level 102 98-107 MMOL/L Carbon Dioxide Level 18 L 21-32 MMOL/L Anion Gap 16 H 5-14 MMOL/L Blood Urea Nitrogen 34 H 7-18 MG/DL Creatinine 2.63 H 0.60-1.30 MG/DL Estimat Glomerular Filtration Rate 25 BUN/Creatinine Ratio 13 Glucose Level 98 70-105 MG/DL Calcium Level 9.3 8.5-10.1 MG/DL Corrected Calcium 9.5 8.5-10.1 MG/DL Total Bilirubin 1.4 H 0.1-1.0 MG/DL Aspartate Amino Transf (AST/SGOT) 18 5-34 U/L Alanine Aminotransferase (ALT/SGPT) 24 0-55 U/L Alkaline Phosphatase 71 40-136 U/L B-Type Natriuretic Peptide 169.8 H <100.0 PG/ML Total Protein 7.4 6.4-8.2 GM/DL Albumin 3.7 3.2-4.5 GM/DL Lactic Acid Level 3.04 *H 0.50-2.00 MMOL/L Micro Results Microbiology 11/29/18 Influenza Types A,B Antigen (JERILYN) - Final, Complete My Orders Orders - ILEANA OSBORNE ENGINEER CONDUCTOR Cbc With Automated Diff (11/29/18 17:11) Comprehensive Metabolic Panel (11/29/18 17:11) Influenza A And B Antigens (11/29/18 17:11) Chest Pa/Lat (2 View) (11/29/18 17:11) Iv Heplock-Insert (Order) (11/29/18 17:11) Methylprednisolone Sod Succ (Solu-Medrol (11/29/18 17:15) BNP (11/29/18 17:11) Ibuprofen Tablet (Motrin Tablet) (11/29/18 17:15) Ns Iv 1000 Ml (Sodium Chloride 0.9%) (11/29/18 17:15) Metoprolol Tartrate Injection (Lopressor (11/29/18 17:15) Lorazepam Injection (Ativan Injection) (11/29/18 17:30) Blood Culture (11/29/18 17:34) Lactic Acid Analyzer (11/29/18 17:34) Manual Differential (11/29/18 17:17) Albuterol/Ipra Inhalation Soln (Duoneb I (11/29/18 18:15) Svn Small Volume Nebulizer (11/29/18 18:02) Albuterol/Ipra Inhalation Soln (Duoneb I (11/29/18 18:01) Fibrin Degradation Products (11/29/18 18:17) Ns Iv 1000 Ml (Sodium Chloride 0.9%) (11/29/18 18:30) Ua Culture If Indicated (11/29/18 18:22) Arterial Blood Gas (11/29/18 18:23) Medications Given in ED Current Medications Medications Dose Ordered Sig/Mery Route Start Time Stop Time Status Last Admin Dose Admin Albuterol/ Ipratropium 3 ml ONCE ONCE INH 11/29/18 18:15 11/29/18 18:16 DC 11/29/18 18:09 3 ML Ibuprofen 800 mg ONCE ONCE PO 11/29/18 17:15 11/29/18 17:16 DC 11/29/18 17:30 800 MG Lorazepam 1 mg ONCE PRN IVP 11/29/18 17:30 11/29/18 17:25 1 MG Methylprednisolone Sodium Succinate 125 mg ONCE ONCE IVP 11/29/18 17:15 11/29/18 17:16 DC 11/29/18 17:30 125 MG Vital Signs/I&O 11/29/18 11/29/18 16:59 18:09 Temp 102.8 Pulse 155 Resp 22 B/P (MAP) Pulse Ox 93 O2 Delivery Room Air Capillary Refill : Less Than 3 Seconds Diagnostic Imaging Diagonstic Imaging: Xray Comments NAME: JUAN C [facility] REC#: [id number] PT STATUS: REG ER : 1955 PHYSICIAN: ILEANA OSBORNE ENGINEER CONDUCTOR ADMIT DATE: 11/29/18/ER Draft Date of Exam:11/29/18 CHEST PA/LAT (2 VIEW) INDICATION: Cough and congestion. COMPARISON: 10/18/2017. FINDINGS: Frontal and lateral views of the chest demonstrate basilar atelectasis and infiltrate in the left lung base. No large effusion is seen. The right lung is clear. The heart is normal. There is no pneumothorax. IMPRESSION: Basilar atelectasis and infiltrate on the left. Followup recommended. Dictated on workstation # [id number] Dict: 11/29/18 1819 Trans: 11/29/18 1827 [facility] [id number] Interpreted by: ISAC STINSON Electronically signed by: Departure Communication (Admissions) Time/Spoke to Admitting Phy: 18:[address] Dong. We will admit, blood pressure is a bit soft at 95/50, heart rate is still tachycardic in the 130 range. Patient is mentating well up alert talkative and standing up at the bedside use the urinal without assistance. Second liter of normal saline is to be started at this time he has received 1 L. [facility] group home as discussed with ict business analyst and they are releasing him from custody for the admission. capillary refill is brisk on focused exam at 1902. Due to the elevated d-dimer the hypoxia and concern for possible pulmonary embolism will use treatment dose Lovenox based on renal function Impression Primary Impression: Severe sepsis Additional Impressions: Chronic back pain Qualified Codes: M54.5 - Low back pain; G89.29 - Other chronic pain Left lower lobe pneumonia Qualified Codes: J18.1 - Lobar pneumonia, unspecified organism Disposition: ADMITTED INPATIENT Condition: Stable Admissions Decision to Admit Reason: Admit from ER (General) Decision to Admit/Date: Nov 29, 2018 Time/Decision to Admit Time: 18:59 Departure-Patient Inst. Referrals: NO,LOCAL PHYSICIAN (PCP/Family) Primary Care Physician ILEANA OSBORNE APRN Nov 29, 2018 17:16
[2018-11-29 17:30] LABS: BASOPHILS % (AUTO) 0 % (0-10); EOSINOPHILS % (AUTO) 0 % (0-10); HEMATOCRIT 42 % (40-54); HEMOGLOBIN 14.8 G/DL (13.3-17.7); LYMPHOCYTES # (AUTO) 0.5 X 10^3 (1.0-4.0); LYMPHOCYTES % (AUTO) 5 % (12-44); MEAN CORPUSCULAR HEMOGLOBIN 30 PG (25-34); MEAN CORPUSCULAR HGB CONC 35 G/DL (32-36); MEAN CORPUSCULAR VOLUME 86 FL (80-99); MEAN PLATELET VOLUME 10.6 FL (7.4-10.4); MONOCYTES # (AUTO) 0.2 X 10^3 (0.0-1.0); MONOCYTES % (AUTO) 2 % (0-12); NEUTROPHILS # (AUTO) 9.4 X 10^3 (1.8-7.8); NEUTROPHILS % (AUTO) 93 % (42-75); PLATELET COUNT 205 10^3/uL (130-400); RED CELL DISTRIBUTION WIDTH 13.4 % (10.0-14.5); WHITE BLOOD COUNT 10.1 10^3/uL (4.3-11.0)
[2018-11-29] MEDS ORDERED: LORazepam INJ 2 MG/ML (ATIVAN) VIAL IVP PRN (17:30)
[2018-11-29 17:51] LABS: ALBUMIN 3.7 GM/DL (3.2-4.5); BILIRUBIN,TOTAL 1.4 MG/DL (0.1-1.0); CALCIUM 9.3 MG/DL (8.5-10.1); CREATININE SERUM 2.63 MG/DL (0.60-1.30); POTASSIUM 4.4 MMOL/L (3.6-5.0); TOTAL PROTEIN 7.4 GM/DL (6.4-8.2)
[2018-11-29 17:52] LABS: BAND NEUTROPHILS 13 %; BASOPHILS % (MANUAL) 0 %; EOSINOPHILS % (MANUAL) 0 %; LYMPHOCYTES % (MANUAL) 5 %; MONOCYTES % (MANUAL) 1 %; NEUTROPHILS % (MANUAL) 81 %; RBC MORPH NORMAL
--- NOTE | 2018-11-29 18:00 | NUR ---
ASSUMED CARE OF PT @ THIS TIME. PT REPORT RECIEVED FROM [facility].
[2018-11-29] MEDS ORDERED: RT-ALBUTEROL/IPRATROPIUM 3 ML (DUONEB) VIAL ONE (18:01)
[2018-11-29] MEDS ORDERED: RT-ALBUTEROL/IPRATROPIUM 3 ML (DUONEB) VIAL INH ONE (18:15)
--- NOTE | 2018-11-29 18:28 | Diagnostic Imaging Report ---
INDICATION: Cough and congestion. COMPARISON: 10/18/2017. FINDINGS: Frontal and lateral views of the chest demonstrate basilar atelectasis and infiltrate in the left lung base. No large effusion is seen. The right lung is clear. The heart is normal. There is no pneumothorax. IMPRESSION: Basilar atelectasis and infiltrate on the left. Followup recommended. Dictated by: Dictated on workstation # [id number]
[2018-11-29 19:02] LABS: BILIRUBIN,URINE NEGATIVE (NEGATIVE); CLARITY,URINE SLIGHTLY CLOUDY; COLOR,URINE AMBER; GLUCOSE, URINE (UA) NEGATIVE (NEGATIVE); KETONES,URINE NEGATIVE (NEGATIVE); LEUKOCYTE ESTERASE ,URINE 3+ (NEGATIVE); NITRITE,URINE NEGATIVE (NEGATIVE); PH,URINE 8 (5-9); PROTEIN,URINE 2+ (NEGATIVE); UROBILINOGEN,URINE 1 MG/DL (NORMAL)
[2018-11-29 19:15] LABS: BACTERIA,URINE FEW /HPF
[2018-11-29] MEDS ORDERED: ENOXAPARIN 100 MG/1 ML (LOVENOX) SYR SC ONE (19:15)
[2018-11-29] MEDS ORDERED: PIPERACILLIN/TAZOBACTAM (BULK) 4.5 GM in NS (IVPB) 100 ML IV ONE (19:15)
--- OUTSIDE RECORDS SUMMARY | 2018-11-29 19:15 | XMS REPORT | Clinical Summary ---
Author Author [facility] Organization [facility] Address Unknown Phone Unavailable Care Team Providers Care Health Care Consultant Name Role Phone PP Unavailable Allergies No Known Allergies Medications End Date Status Medication Sig Dispensed Refills Start Date Active ibuprofen (ADVIL,MOTRIN) Take 800 mg 0 800 MG tablet by mouth 2 (two) times daily. Active divalproex (DEPAKOTE ER) Take 500 mg 0 500 MG 24 hr tablet by mouth 2 (two) times daily. Active tramadol (ULTRAM) 50 MG Take 50 mg by 0 tablet mouth 2 (two) times daily. Active gabapentin (NEURONTIN) Take 800 mg 0 800 MG tablet by mouth 2 (two) times daily. Active trihexyphenidyl (ARTANE) Take 2 mg by 0 2 MG tablet mouth 2 (two) times daily. Active propranolol (INDERAL) 10 Take 10 mg by 0 MG tablet mouth 2 (two) times daily. Active olanzapine (ZYPREXA) 10 Take 10 mg by 0 MG tablet mouth nightly. Active quetiapine (SEROQUEL XR) Take 300 mg 0 300 MG 24 hr tablet by mouth daily. Daily at 1600 Active fluticasone (FLOVENT HFA) Inhale 2 0 44 MCG/ACT inhaler puffs into the lungs 2 (two) times daily. Active albuterol-ipratropium Inhale 2 0 (COMBIVENT) 18-103 puffs into MCG/ACT inhaler the lungs every 6 (six) hours as needed. Active divalproex (DEPAKOTE ER) Take 1 tablet 60 tablet 0 500 MG 24 hr tablet (500 mg 2 total) by mouth 2 (two) times daily. Active gabapentin (NEURONTIN) Take 2 60 capsule 0 400 MG capsule capsules (800 2 mg total) by mouth 2 (two) times daily. Active olanzapine (ZYPREXA) 10 Take 1 tablet 30 tablet 0 MG tablet (10 mg total) 2 by mouth nightly. Active propranolol (INDERAL) 10 Take 1 tablet 60 tablet 0 MG tablet (10 mg total) 2 by mouth 2 (two) times daily. Do not take medication if pulse below 60 per minute. Active quetiapine (SEROQUEL XR) Take 1 tablet 30 tablet 0 300 MG 24 hr tablet (300 mg 2 total) by mouth daily. Active tramadol (ULTRAM) 50 MG Take 1 tablet 60 tablet 0 tablet (50 mg total) 2 by mouth 2 (two) times daily. Active trihexyphenidyl (ARTANE) Take 1 tablet 60 tablet 0 2 MG tablet (2 mg total) 2 by mouth 2 (two) times daily. Active Problems No known active problems Resolved Problems Problem Noted Date Resolved Date Mood disorder 08/16/2012 08/18/2012 Suicidal ideation 08/16/2012 08/18/2012 Social History Date Tobacco Use Types Packs/Day Years Used Current Every Day Smoker 1 Alcohol Use Drinks/Week oz/Week Comments No Sex Assigned at Date Recorded Not on file Industry Job Start Date Occupation Not on file Not on file Not on file Travel End Travel History Travel Start No recent travel history available. Last Filed Vital Signs Time Taken Vital Sign Reading 08/18/2012 5:57 AM INFORMATION CODER Blood Pressure 102/65 08/18/2012 9:22 AM INFORMATION CODER Pulse 96 08/18/2012 5:57 AM INFORMATION CODER Temperature 37 C (98.6 F) 08/18/2012 5:57 AM INFORMATION CODER Respiratory Rate 12 08/15/2012 10:01 PM INFORMATION CODER Oxygen Saturation 95% - Inhaled Oxygen - Concentration 08/15/2012 10:00 PM INFORMATION CODER Weight 99.8 kg (220 lb) 08/15/2012 10:00 PM INFORMATION CODER Height 180.3 cm (5' 11") 08/15/2012 10:00 PM INFORMATION CODER Body Mass Index 30.68 Plan of Treatment Health Maintenance Due Date Last Done Comments Hepatitis C Screening 1955 DTaP,Tdap,and Td Vaccines 1976 (1 - Tdap) Colon Cancer Screening 2007 Zoster Recombinant 2007 Vaccine (RZV,Shingrix) (1 of 2 - [facility] 2 Dose Standard) Influenza Vaccine (#1) 2018 Results Not on filefrom Last 3 Months Advance Directives For more information, please contact: [address] [address] Date Inactivated Comments Code Status Date Activated 08/18/2012 5:05 PM Full Code 08/16/2012 2:14 AM
--- OUTSIDE RECORDS SUMMARY | 2018-11-29 19:16 | XMS REPORT ---
Author Author FRANK MULLINS Organization [facility] Address [address] [place] [address] Care Team Providers Care Explosive Expert Name Role Phone FRANK MULLINS Unavailable PROBLEMS Type Condition ICD9-CM Code SRL49-XT Code Onset Dates Condition Status SNOMED Code Problem Back pain M54.9 Active 267915004 Problem Amphetamine abuse F15.10 Active 93255409 Problem Pain in left shoulder M25.512 Active 20740036 Problem COPD (chronic obstructive pulmonary disease) J44.9 Active 14475241 Problem Anxiety F41.9 Active 50115880 Problem Essential hypertension I10 Active 72097400 Problem Mood disorder F39 Active 27290190 Problem Other chronic pain G89.29 Active 86730246 Problem 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 Active 4204374 Problem Socially inappropriate behavior F99 Active 289879111 Problem Seasonal allergic rhinitis due to other allergic trigger J30.89 Active 763100880 Problem Arthritis M19.90 Active 8945498 ALLERGIES Substance Reaction Event Type Date Status Sulfamethoxazole-Trimethoprim Unknown Drug Allergy Jul, Active ENCOUNTERS Encounter Location Date Diagnosis [address] [id number] Jul, Anxiety F41.9 [facility] [address] [id number] [address] Jun, [address] [place] [id number] Jun, Vision changes H53.9 [facility] [address] [facility] [id number] [address] Jun, Other chronic pain G89.[address] [id number] Jun, Low back pain M54.5 ; Other chronic pain G89.29 and Mood disorder F39 [address] [id number] Jun, Pain in right leg M79.604 ; Pain of left leg M79.605 and Other chronic pain G89.29 [facility] [address] [place] [id number] May, Low back pain M54.5 and Other chronic pain G89.29 [facility] [address] [facility] [id number], [place] [address] May, Lumbar back pain M54.5 [facility] [address] [facility] [id number] [place] [address]72- 7192 Apr, Lumbar back pain M54.5 and Mood disorder F39 [facility] [address] [facility] [id number], [place] [address] Apr, Mood disorder F39 [address] [place] [id number] Mar, Mood disorder F39 and Lumbosacral pain M54.5 [address] [place] [id number] Feb, Low back pain M54.5 ; Other chronic pain G89.29 and Seasonal allergic rhinitis due to other allergic trigger J30.89 [facility] [address] [facility] [id number], [place] [address] Feb, [facility] [id number] [place] [address] 45164- 3411 Nov, [facility] [address] [id number] [address] Sep, [facility] [address] [facility] [id number] [place] [address] 44341- 6560 Aug, [facility] [address] [facility] [id number], [place] [address] Aug, [facility] [address] [facility] [id number], [place] [address] Jul, [facility] [address] [facility] [id number], [place] [address] Jul, Back pain M54.9 [facility] [id number] [place] [address] 58394- 2175 Jul, [facility] [id number] [place] [address] 69580- 8325 Jun, [facility] [id number] [place] [address] 56181- 4643 Jun, [facility] [address] [address]- 9580 Jun, Arthritis M19.90 ; Pain in left shoulder M25.512 and Lumbar back pain M54.5 [facility] [id number] [place] [address] 58109- 6667 May, [facility] [id number] [place] [address] 13263- 4486 Apr, [facility] [id number] [place] [address] 46166- 8975 Apr, [facility] [id number] [place] [address] 43233- 7706 Apr, Essential hypertension I10 and Arthritis M19.90 [facility] [id number] [place] [address] 14471- 9080 Apr, [facility] [id number] [place] [address] 06491- 1606 Mar, [facility] [id number] [place] [address] 64260- 3735 Mar, Lumbar pain M54.5 ; 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 ; Allergic rhinitis, unspecified allergic rhinitis type J30.9 and Hematuria R31.9 [facility] [id number] [place] [address] 79589- 4542 Mar, [facility] [id number] [place] [address] 74951 -0494 January, Open bite, right lower leg, initial encounter S81.851A and Pain in left shoulder M25.512 [facility] [id number] [place] [address] 78329 -4190 Dec, [facility] [id number] [place] [address] 45366 -2628 Dec, Low back pain M54.5 [address] [address]14- 1636 Aug, [facility] [address] [address] Apr, Perforated left tympanic membrane on examination H72.92 and Deafness in left ear H91.92 [address] [address]24- 1571 Apr, [id number] [place] [address] 83400- 7919 Mar, Lumbar back pain M54.5 ; Essential hypertension I10 ; Chronic obstructive pulmonary disease, unspecified COPD type J44.9 ; Anxiety F41.9 ; Long-term use of high-risk medication Z79.899 and Socially inappropriate behavior F99 [id number] [place] [address] 58732- 8433 Mar, [id number] [place] [address] 57308- 6767 Mar, Low back pain M54.5 [id number] [place] [address] 20402- 2564 Mar, [id number] [place] [address] 47664- 7568 Mar, [address] 97925- 8941 Feb, Impingement syndrome, shoulder, left M75.42 and Superior glenoid labrum lesion of left shoulder, subsequent encounter S43.432D [address] 73304- 5075 January, [facility] [id number] [place] [address] 91707- 7731 January, [facility] [address] 41035- 9797 January, [facility] [id number] [place] [address] 88754- 2083 Dec, Impingement syndrome, shoulder, left M75.42 [address] 06758- 1382 Dec, [facility] [address] 09652- 0996 Nov, [address] 86440- 3167 Nov, Essential hypertension I10 ; Pain in left shoulder M25.512 ; Amphetamine abuse F15.10 and Callus of foot L84 [address] 98174- 4732 Nov, Shoulder pain, left M25.512 [address] 17936- 6567 Nov, [facility] [address] 02155- 7844 Nov, [id number] [place] [address] 52923- 3316 Nov, Allergic rhinitis, unspecified allergic rhinitis type J30.9 ; Right wrist pain M25.531 ; Back pain M54.9 and Essential hypertension I10 [address] 68320- 5420 Nov, [address] 71105- 0562 Oct, [facility] [address] 09315- 3037 03 Feb, 2016 Tobacco abuse Z72.0 ; Lumbar back pain M54.5 and Foot callus L84 [facility] [id number] [place] [address] 92141- 7554 Sep, [address] 41227- 3055 Sep, Lumbar pain M54.5 ; Essential hypertension I10 ; COPD ( chronic obstructive pulmonary disease) J44.9 ; Anxiety F41.9 and Allergic rhinitis, unspecified allergic rhinitis type J30.9 [id number] [place] [address] 74927- 7346 Aug, [address] 58554- 3154 Aug, [address] 74963- 8136 Jul, [address] 87004- 2117 Jul, Lumbar back pain M54.5 ; Essential hypertension I10 ; COPD ( chronic obstructive pulmonary disease) J44.9 ; Anxiety F41.9 and Allergic rhinitis J30.9 [address] 81618- 4637 Apr, Positive urine drug screen 796.0 and Chronic lumbar pain 724.2 [address] 95094- 9027 Apr, [id number] [place] [address] 29425- 2022 Apr, [address] 36716- 2292 Apr, [address] 09957- 6296 Apr, Lumbago 724.2 ; Unspecified viral hepatitis C without hepatic coma 070.70 ; Unspecified disorder of skin and subcutaneous tissue 709.9 and Long-term use of high-risk medication V58.69 [facility] [address] [place] [address] 79726- 6203 Mar, Vision changes 368.9 ; Allergic rhinitis 477.9 and Callus of foot 700 [facility] [id number] [place] [address] 14297- 4795 Mar, [facility] [id number] [place] [address] 44495- 5257 Mar, Chronic airway obstruction, not elsewhere classified 496 ; Essential hypertension, benign 401.1 ; Lumbago 724.2 ; Insomnia, unspecified 780.52 ; Anxiety state, unspecified 300.00 and Unspecified disorder of skin and subcutaneous tissue 709.9 [facility] [address] [place] [id number] Mar, Dental examination V72.2 [id number] [place] [address] 09301- 6061 Mar, [facility] [id number] [place] [address] 91676- 8522 Feb, Amphetamine and other psychostimulant dependence, unspecified abuse 304.40 [id number] [place] [address] 11590- 3301 Feb, Chronic airway obstruction, not elsewhere classified 496 ; Back pain 724.5 and Hypertension 401.9 [address] [place] [address] 77693- 1878 January, Chronic airway obstruction, not elsewhere classified 496 ; Unspecified disorder of skin and subcutaneous tissue 709.9 ; Lumbago 724.2 ; Essential hypertension, benign 401.1 ; Foot callus 700 and Allergic rhinitis 477.9 [facility] [address] [place] [address] 54292- 6714 January, [facility] [address] [place] [address] 29117- 3860 January, [id number] [place] [address]- 4213 14 Dec, 2014 [facility] [place] [facility] [address] [id number] [place] [address]- 6697 13 Dec, 2014 [facility] [place] [facility] [address] [id number] [place] [address]- 9336 27 Nov, 2014 [facility] [place] [facility] [address] [id number] [place] [address]- 5341 27 Nov, 2014 [facility] [place] [facility] [address] [id number] [place] [address]- 2050 20 Nov, 2014 [facility] [place] [facility] [address] [id number] [place] [address]- 9822 20 Nov, 2014 [facility] [place] [facility] [address] [id number] [place] [address]- 2693 17 Nov, 2014 [facility] [place] [facility] [address] [id number] [place] [address]- 3144 17 Nov, 2014 [facility] [place] [facility] [address] [id number] [place] [address]- 3873 16 Nov, 2014 [facility] [place] [facility] [address] [id number] [place] [address]- 9134 Nov, [facility] [place] [facility] [address] [id number] [place] [address]- 5163 Nov, [facility] [place] [facility] [address] [id number] [place] [address]- 3989 Oct, 2014 [facility] [place] [facility] [address] [id number] [place] [address]- 4136 Oct, [facility] [place] [facility] [address] [id number] [place] [address]- 3856 17 Oct, 2014 [facility] [place] [facility] [address] [id number] [place] [address]- 2546 17 Oct, 2014 [facility] [place] [facility] [address] [id number] [place] [address]- 9079 Oct, 2014 [facility] [place] [facility] [address] [id number] [place] [address]- 6377 Oct, 2014 [facility] [place] [facility] [address] [id number] [place] [address]- 3664 Oct, 2014 [facility] [place] [facility] [address] [facility] [id number] [place] [address]- 2939 Oct, 2014 [facility] [place] [facility] [address] [facility] [id number] [place] [address]- 1220 Oct, 2014 [facility] [place] [facility] [address] [id number] [place] [address]- 4062 Oct, 2014 [facility] [place] [facility] [address] [facility] [id number] [place] [address]- 7875 Oct, 2014 [facility] [place] [facility] [address] [id number] [place] [address]- 6440 Oct, 2014 [facility] [place] [facility] [address] [facility] [id number] [place] [address]- 6428 Oct, [facility] [place] [facility] [address] [facility] [id number] [place] [address]- 0209 Sep, [facility] [place] [facility] [address] [facility] [id number] [place] [address]- 3926 Sep, [facility] [place] [facility] [address] [facility] [id number] [place] [address]- 2421 Sep, [facility] [place] [facility] [address] [facility] [id number], [place] [address]- 9734 Sep, [facility] [place] [facility] [address] [facility] [id number], [place] [address]- 6937 Sep, [facility] [place] [facility] [address] [facility] [id number], [place] [address]- 8466 Sep, [facility] [place] [facility] [id number] [address]- 0790 Sep, [facility] [place] [facility] [address] [id number] [place] [address]- 7907 Sep, [facility] [place] [facility] [address] [id number] [place] [address]- 9036 Aug, [facility] [place] [facility] [address] [id number] [place] [address]- 2376 Aug, [facility] [place] [facility] [address] [id number] [place] [address]- 9726 Aug, [facility] [place] [facility] [address] [id number] [place] [address]- 3627 Aug, [facility] [place] [facility] [address] [id number] [place] [address]- 6451 Aug, [facility] [place] [facility] [address] [id number] [place] 8180 Aug, [facility] [place] [facility] [address] [id number] [place] [address]- 6270 Aug, [facility] [place] [facility] [address] [id number] [place] [address]- 4369 Aug, [facility] [place] [facility] [address] [id number] [place] [address]- 5877 Aug, [facility] [place] [facility] [address] [id number] [place] 1966 Aug, [facility] [place] [facility] [address] [id number] [place] 0356 Aug, [facility] [place] [facility] [address] [id number] [place] [address]- 0356 Aug, [facility] [place] [facility] [address] [id number] [place] [address]- 6876 Aug, [facility] [place] [facility] [address] [id number] [place] [address]- 2676 Aug, [facility] [place] [facility] [address] [id number] [place] [id number] Aug, [facility] [place] [facility] [address] [id number] [place]- 3624 Aug, [facility] [place] [facility] [address] [id number] [place] [address]- 5959 Jul, [facility] [place] [facility] [address] [id number] [place] [address]- 0067 Jul, [facility] [place] [facility] [address] [id number] [place] [address]- 8504 Jul, [facility] [place] [facility] [address] [id number] [place] [address]- 3713 Jul, [facility] [place] [facility] [address] [id number] [place] [address]- 8946 Jul, [facility] [place] [facility] [address] [id number] [place] [address]- 1312 Jul, [facility] [place] [facility] [address] [id number], [place] [address]- 6603 Jun, [facility] [place] [facility] [address] [id number] [place] [address]- 2016 Jun, [facility] [place] [facility] [address] [id number], [place] [address]- 3006 Jun, [facility] [place] [facility] [address] [id number], [place] [address]- 8453 Jun, [facility] [place] [facility] [address] [id number], [place] [address]- 8800 Jun, [facility] [place] [facility] [address] [id number] [place] [address]- 7924 Jun, [facility] [place] [facility] [address] [id number][place] 5212 Jun, [facility] [place] [facility] [address] [id number], [place] [address]- 9175 Jun, [facility] [place] [facility] [address] [id number] [place] 1900 Jun, 2013 [facility] [place] [facility] [address] [id number] [place] [address]- 1825 Jun, 2013 [facility] [place] [facility] [address] [id number] [place] 6686 Jun, 2013 [facility] [place] [facility] [address] [id number] [place] [address]- 6846 Jun, 2013 [facility] [place] [facility] [address] [id number] [place] [address]- 8908 Jun, 2013 [facility] [place] [facility] [address] [id number] [place] 9713 Jun, 2013 [facility] [place] [facility] [address] [id number] [place] [address]- 4735 Jun, 2013 [facility] [place] [facility] [address] [id number] [place] [address]- 4953 Jun, 2013 [facility] [place] [facility] [address] [id number] [place] [address]- 6148 Jun, 2013 [facility] [place] [facility] [address] [id number] [place] [address]- 6396 Jun, 2013 [facility] [place] [facility] [address] [id number] [place] [address]- 0532 Jun, 2013 [facility] [place] [facility] [address] [id number] [place] [address]- 1385 Jun, 2013 [facility] [place] [facility] [address] [id number], [place] [address]- 6150 Jun, 2013 [facility] [place] [facility] [address] [id number] [place] [address]- 6872 Jun, 2013 [facility] [place] [facility] [address] [id number] [place]- 1999 Jun, 2013 [facility] [place] [facility] [address] [id number] [place] [address]- 8802 29 May, 2014 [facility] [place] [facility] [address] [id number] [place] [address]- 3037 29 May, 2013 [facility] [place] [facility] [address] [id number] [place] [address]- 2593 May, [facility] [place] [facility] [address] [id number] [place] [address]- 8201 May, [facility] [place] [facility] [address] [id number] [place] [address]- 5177 May, [facility] [place] [facility] [address] [id number] [place] [address]- 2207 May, [facility] [place] [facility] [address] [id number] [place] [address]- 1426 May, [facility] [place] [facility] [address] [id number] [place] [address]- 7042 May, [facility] [place] [facility] [address] [id number] [place] [address]- 5583 Apr, [facility] [place] [facility] [address] [id number] [place] [address]- 5339 Apr, [facility] [place] [facility] [address] [id number] [place] [address]- 5685 Apr, [facility] [place] [facility] [address] [id number] [place] [address]- 3608 Apr, [facility] [place] [facility] [address] [id number] [place] [address]- 7141 Apr, [facility] [place] [facility] [address] [id number] [place] [address]- 2970 Apr, [facility] [place] [facility] [address] [id number] [place] [address]- 2859 Apr, [facility] [place] [facility] [address] [id number] [place] [address] Apr, [facility] [place] [facility] [address] [id number] [place] [address] Apr, [facility] [place] [facility] [address] [id number] [place] [address] Apr, [facility] [place] [facility] [address] [id number] [place] [address] Apr, [facility] [place] [facility] [address] [id number] [place] [address] Apr, [facility] [place] [facility] [address] [id number] [place] [address] Apr, [facility] [place] [facility] [address] [id number] [place] [address] Apr, [facility] [place] [facility] [address] [id number] [place] [address] Apr, [facility] [place] [facility] [address] [id number] [place] [address] Apr, [facility] [place] [facility] [address] [id number] [place] [address] Apr, [facility] [place] [facility] [address] [id number] [place] [address]65 Apr, [facility] [place] [facility] [address] [id number] [place] [address] Apr, [facility] [place] [facility] [address] [id number] [place] [address] Apr, [facility] [place] [facility] [address] [id number] [place] [address] Apr, [facility] [place] [facility] [address] [id number] [place] [address] Apr, [facility] [place] [facility] [address] [id number] [place] [address] Mar, [facility] [place] [facility] [address] [id number] [place] [address] Mar, [facility] [place] [facility] [address] [id number] [place] [address] Mar, [facility] [place] [facility] [address] [id number] [place] [address] Mar, [facility] [place] [facility] [address] [id number] [place] [address] Mar, [facility] [place] [facility] [address] [id number] [place] [address]- [address] Mar, [facility] [place] [facility] [address] [id number] [place] [address] Mar, [facility] [place] [facility] [address] [id number] [place] [address] 2005 Mar, [facility] [place] [facility] [address] [id number] [place] [address] Feb, [facility] [place] [facility] [address] [id number] [place] [address] Feb, [facility] [place] [facility] [address] [id number] [place] [address] Feb, [facility] [place] [facility] [address] [id number] [place] [address] Feb, [facility] [place] [facility] [address] [id number] [place] [address] Feb, [facility] [place] [facility] [address] [id number] [place] [address] Feb, [facility] [place] [facility] [address] [id number] [place] [address] Feb, [facility] [place] [facility] [address] [id number] [place] [address] January, [facility] [place] [facility] [address] [id number] [place] [address] January, [facility] [place] [facility] [address] [id number] [place] [address] January, [facility] [place] [facility] [address] [id number] [place] [address] 49[address] January, [facility] [place] [facility] [address] [id number] [place] [address] Dec, [facility] [place] [facility] [address] [id number] [place] [address] Dec, [facility] [place] [facility] [address] [id number] [place] [address] 289[address] Dec, [facility] [place] [facility] [address] [id number] [place] [address] 406[address] Dec, [facility] [place] [facility] [address] [id number] [place] [address] Dec, [facility] [place] [facility] [address] [id number] [place] [address] Dec, [facility] [place] [facility] [address] [id number] [place] [address]- [address] Dec, [facility] [place] [facility] [address] [id number] [place] [address] Dec, [facility] [place] [facility] [address] [id number] [place] [address] Dec, [facility] [place] [facility] [address] [id number] [place] [address] Dec, [facility] [place] [facility] [address] [id number] [place] [address]- [address] Nov, [facility] [place] [facility] [address] [id number] [place] [address] Nov, [facility] [place] [facility] [address] [id number] [place] [address] Nov, [facility] [place] [facility] [address] [id number] [place] [address] Nov, [facility] [place] [facility] [address] [id number] [place] [address] Oct, [facility] [place] [facility] [address] [id number] [place] [address] Oct, [facility] [place] [facility] [address] [id number] [place] [address] Oct, [facility] [place] [facility] [address] [id number] [place] [address] Oct, [facility] [place] [facility] [address] [id number] [place] [address] Oct, [facility] [place] [facility] [address] [id number] [place] [address] Oct, [facility] [place] [facility] [address] [facility] [id number] [place] [address] Oct, [facility] [place] [facility] [address] [facility] [id number] [place] [address] 118[address] Oct, [facility] [place] [facility] [address] [facility] [id number] [place] [address] Sep, [facility] [place] [facility] [address] [facility] [id number] [place] [address] Sep, [facility] [place] [facility] [address] [facility] [id number] [place] [address] 1971 Sep, [facility] [place] [facility] [address] [facility] [id number] [place] [address]- [address] Sep, [facility] [place] [facility] [address] [id number] [address] Aug, [facility] [place] [facility] [address] [id number] [place] [address] Aug, [facility] [place] [facility] [address] [facility] [id number] [place] [address]- [address]69 Aug, [facility] [place] [facility] [address] [facility] [id number] [place] [address]- 8432 Aug, [facility] [place] [facility] [address] [id number] [place] [address]- 8665 Jul, [facility] [place] [facility] [address] [id number] [place] [address] 8467 Jul, [facility] [place] [facility] [address] [id number] [place] [address]- [address] Jul, [facility] [place] [facility] [address] [id number] [place] [address]- 4[address] Jul, [facility] [place] [facility] [address] [id number] [place] [address]- [address] Jun, [facility] [place] [facility] [address] [id number] [place] [address]- [address] Jun, [facility] [place] [facility] [address] [id number] [place] [address]- 4298 Jun, [facility] [place] [facility] [address] [id number], [place] [address] Jun, [facility] [place] [facility] [address] [id number] [place] [address]- 5834 Jun, [facility] [place] [facility] [address] [id number], [place] [address] Jun, [facility] [place] [facility] [address] [id number], [place] [address] 08 Jun, 2013 [facility] [place] [facility] [address] [id number], [place] [address] 17 May, 2013 [facility] [place] [facility] [address] [id number], [place] [address] May, [facility] [place] [facility] [address] [id number], [place] [address] May, [facility] [place] [facility] [address] [id number], [place] [address] Apr, [facility] [place] [facility] [address] [id number], [place] [address] Apr, [facility] [place] [facility] [address] [id number] [place] [address]- 5496 Apr, [facility] [place] [facility] [address] [id number] [place] [address]- 5683 Apr, [facility] [place] [facility] [address] [id number] [place] [address]- 0589 Apr, [facility] [place] [facility] [address] [id number] [place] [address]- 2020 Mar, [facility] [place] [facility] [address] [id number] [place] [address]- 1218 Mar, [facility] [place] [facility] [address] [id number] [place] [address] 3640 Mar, [facility] [place] [facility] [address] [id number] [place] [address]- 9785 Mar, [facility] [place] [facility] [address] [id number] [place] [address]- 9675 Mar, [facility] [place] [facility] [address] [id number] [place] [address]- 78[address] Mar, [facility] [place] [facility] [address] [id number] [place] [address]- 37[address] Feb, [facility] [place] [facility] [address] [id number] [place] [address] 2463 Feb, [facility] [place] [facility] [address] [id number] [place] [address]- 1018 Feb, [facility] [place] [facility] [address] [id number] [place] [address]- 1230 Feb, [facility] [place] [facility] [address] [id number] [place] [address]- 7751 Feb, [facility] [place] [facility] [address] [id number] [place] [address]- 6[address] Feb, [facility] [place] [facility] [address] [id number] [place] [address]- 2546 Feb, [facility] [address] [id number] [place] [address]- 2806 Feb, [facility] [place] [facility] [address] [id number] [place] [address]- [address] Feb, [facility] [address] [id number] [place] [address]- [address] January, [facility] [address] [id number] [place] [address] January, [facility] [address] [id number] [place] [address] 8556 January, [facility] [address] [id number] [place] [address]- 2036 January, [facility] [address] [id number] [place] [address]- 6484 January, [facility] [address] [id number] [place] [address]- 8116 January, [facility] [address] [id number] [place] [address]- 0466 January, [facility] [address] [id number] [place] [address]- 8476 January, [facility] [address] [id number] [place] [address]- 5196 January, [facility] [address] [id number] [place] [address]- 2546 January, [facility] [place] [facility] [address] [id number] [place] [address]- 0116 Dec, [facility] [place] [facility] [address] [id number] [place] [address]- 3456 Dec, [facility] [place] [facility] [address] [id number] [place] [address]- 4972 Dec, [facility] [id number] [address] Dec, [facility] [id number], [place] [address] 85[address] Dec, [facility] [id number], [place] [address] 3602 Dec, [facility] [id number], [place] [address] 9208 Nov, [facility] [id number] [place] [address]- 1614 Nov, [facility] [id number] [place] [address]- 1209 Nov, [facility] [id number] [place] [address]- 1777 Oct, [facility] [id number] [place] [address]- 9979 Oct, [facility] [id number], [place] [address]- 7742 Oct, [facility] [id number], [place] [address]- 1808 Oct, [facility] [id number], [place] [address]- 9738 Oct, [facility] [id number], [place] [address] 0758 Jun, IMMUNIZATIONS No Known Immunizations SOCIAL HISTORY Never Assessed REASON FOR VISIT GROUP HOME PLAN OF CARE VITAL SIGNS Height 71 in 2018-07-24 Weight 183 lbs 2018-07-24 Heart Rate 88 bpm 2018-07-24 Respiratory Rate 18 2018-07-24 BMI 25.52 kg/m2 2018-07-24 Blood pressure systolic 134 mmHg 2018-07-24 Blood pressure diastolic 78 mmHg 2018-07-24 MEDICATIONS Medication Instructions Dosage Frequency Start Date End Date Duration Status HydrOXYzine HCl 25 MG Orally 3 times a day 1 tablet as needed 8h Jul, 30 day(s) Active RESULTS No Results PROCEDURES No Known [...]
--- OUTSIDE RECORDS SUMMARY | 2018-11-29 19:17 | XMS REPORT ---
Author Author FRANK MULLINS Organization [facility] Address [address] [place] [address] Care Team Providers Care Commercial Credit Officer Name Role Phone FRANK MULLINS Unavailable PROBLEMS Type Condition ICD9-CM Code AUZ71-ZY Code Onset Dates Condition Status SNOMED Code Problem Back pain M54.9 Active 378988174 Problem Amphetamine abuse F15.10 Active 95176528 Problem Pain in left shoulder M25.512 Active 54961572 Problem COPD (chronic obstructive pulmonary disease) J44.9 Active 47966796 Problem Anxiety F41.9 Active 41881583 Problem Essential hypertension I10 Active 34520551 Problem Mood disorder F39 Active 36788083 Problem Other chronic pain G89.29 Active 10523338 Problem 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 Active 3681178 Problem Socially inappropriate behavior F99 Active 112214655 Problem Seasonal allergic rhinitis due to other allergic trigger J30.89 Active 129123432 Problem Arthritis M19.90 Active 9401525 ALLERGIES No Information ENCOUNTERS Encounter Location Date Diagnosis [facility] [id number] [address] Jun, [address] [place] [id number] Jun, Vision changes H53.9 [facility] [id number] [address] Jun, Other chronic pain G89.29 [address] [place] [id number] Jun, Low back pain M54.5 ; Other chronic pain G89.29 and Mood disorder F39 [address] [id number] Jun, Pain in right leg M79.604 ; Pain of left leg M79.605 and Other chronic pain G89.29 [address] [place] [id number] May, Low back pain M54.5 and Other chronic pain G89.29 [facility] [id number] [place] [address] 53552- 2416 May, Lumbar back pain M54.5 [facility] [id number] [place] [address] 79506- 6727 Apr, Lumbar back pain M54.5 and Mood disorder F39 [facility] [address] [address] Apr, Mood disorder F39 [facility] [address] [place] [id number] Mar, Mood disorder F39 and Lumbosacral pain M54.5 [facility] [address] [place] [id number] Feb, Low back pain M54.5 ; Other chronic pain G89.29 and Seasonal allergic rhinitis due to other allergic trigger J30.89 [facility] [id number] [place] [address] 05538 -1690 Feb, [facility] [id number] [place] [address] 68148- 9864 Nov, [facility] [address] 74731- 1780 Sep, [facility] [id number] [place] [address] 73516- 8888 Aug, [facility] [id number] [place] [address] 27674- 2323 Aug, [facility] [id number] [place] [address] 59448- 5642 Jul, [facility] [id number] [place] [address] 32140 -6103 Jul, Back pain M54.9 [facility] [id number] [place] [address] 47867- 2795 08 Jul, 2017 [facility] [address] [address]12- 9328 Jun, [facility] [id number] [place] [address] 37380- 4720 Jun, [facility] [id number] [place] [address] 50967- 2089 Jun, Arthritis M19.90 ; Pain in left shoulder M25.512 and Lumbar back pain M54.5 [facility] [id number] [place] [address] 26976- 2655 May, [facility] [id number] [place] [address] 65145- 9229 Apr, [facility] [id number] [place] [address] 86981- 8321 Apr, [id number] [place] [address] 07797- 3914 Apr, Essential hypertension I10 and Arthritis M19.90 [id number] [place] [address] 67147- 2133 Apr, [facility] [id number] [place] [address] 30805- 9150 Mar, [facility] [id number] [place] [address] 02400- 7722 Mar, Lumbar pain M54.5 ; 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 ; Allergic rhinitis, unspecified allergic rhinitis type J30.9 and Hematuria R31.9 [facility] [address] [address] Mar, [facility] [id number] [place] [address] 02437 -5300 January, Open bite, right lower leg, initial encounter S81.851A and Pain in left shoulder M25.512 [facility] [id number] [address] Dec, [facility] [address] [address] Dec, Low back pain M54.5 [facility] [id number] [place] [address] 37990- 6479 Aug, [facility] [id number] [place] [address] 03573 -5083 Apr, Perforated left tympanic membrane on examination H72.92 and Deafness in left ear H91.92 [facility] [id number] [place] [address] 20968- 9215 Apr, [id number] [place] [address] 20881- 0804 Mar, Lumbar back pain M54.5 ; Essential hypertension I10 ; Chronic obstructive pulmonary disease, unspecified COPD type J44.9 ; Anxiety F41.9 ; Long-term use of high-risk medication Z79.899 and Socially inappropriate behavior F99 [facility] [id number] [place] [address] 06781- 7400 Mar, [facility] [id number] [place] [address] 77910- 1527 Mar, Low back pain M54.5 [facility] [id number] [place] [address] 70863- 3160 Mar, [id number] [place] [address] 95965- 1054 Mar, [facility] [id number] [place] [address] 27157- 9685 Feb, Impingement syndrome, shoulder, left M75.42 and Superior glenoid labrum lesion of left shoulder, subsequent encounter S43.432D [facility] [id number] [place] [address] 51674- 7574 January, [facility] [id number] [place] [address] 88232- 2370 January, [facility] [id number] [place] [address] 22356- 7481 January, [facility] [id number] [place] [address] 46539- 2413 Dec, Impingement syndrome, shoulder, left M75.42 [id number] [place] [address] 00117- 7504 Dec, [facility] [address] 24742- 5403 Nov, [id number] [place] [address] 25870- 1500 Nov, Essential hypertension I10 ; Pain in left shoulder M25.512 ; Amphetamine abuse F15.10 and Callus of foot L84 [id number] [place] [address] 06303- 4965 Nov, Shoulder pain, left M25.512 [id number] [place] [address] 27826- 9287 Nov, [id number] [place] [address] 65635- 7524 Nov, [id number] [place] [address] 08687- 5285 Nov, Allergic rhinitis, unspecified allergic rhinitis type J30.9 ; Right wrist pain M25.531 ; Back pain M54.9 and Essential hypertension I10 [id number] [place] [address] 40360- 0022 Nov, [id number] [place] [address] 30180- 8422 Oct, [id number] [place] [address] 22130- 9007 Oct, Tobacco abuse Z72.0 ; Lumbar back pain M54.5 and Foot callus L84 [id number] [place] [address] 05794- 9988 Sep, [id number] [place] [address] 94860- 7634 Sep, Lumbar pain M54.5 ; Essential hypertension I10 ; COPD ( chronic obstructive pulmonary disease) J44.9 ; Anxiety F41.9 and Allergic rhinitis, unspecified allergic rhinitis type J30.9 [id number] [place] [address] 32697- 9984 Aug, [address] 42070- 4978 Aug, [address] 22914- 7699 Jul, [address] 94772- 0321 Jul, Lumbar back pain M54.5 ; Essential hypertension I10 ; COPD ( chronic obstructive pulmonary disease) J44.9 ; Anxiety F41.9 and Allergic rhinitis J30.9 [address] 75538- 9805 Apr, Positive urine drug screen 796.0 and Chronic lumbar pain 724.2 [id number] [place] [address] 12057- 7487 Apr, [id number] [place] [address] 11088- 6059 Apr, [id number] [place] [address] 91183- 1252 Apr, [id number] [place] [address] 20413- 6478 Apr, Lumbago 724.2 ; Unspecified viral hepatitis C without hepatic coma 070.70 ; Unspecified disorder of skin and subcutaneous tissue 709.9 and Long-term use of high-risk medication V58.69 [id number] [place] [address] 57677- 9364 Mar, Vision changes 368.9 ; Allergic rhinitis 477.9 and Callus of foot 700 [facility] [id number] [place] [address] 07967- 7241 Mar, [facility] [id number] [place] [address] 68543- 1620 Mar, Chronic airway obstruction, not elsewhere classified 496 ; Essential hypertension, benign 401.1 ; Lumbago 724.2 ; Insomnia, unspecified 780.52 ; Anxiety state, unspecified 300.00 and Unspecified disorder of skin and subcutaneous tissue 709.9 [facility] [id number] [place] [address] [id number] Mar, Dental examination V72.2 [facility] [id number] [place] [address] 16421- 3945 Mar, [facility] [id number] [place] [address] 58132- 6889 Feb, Amphetamine and other psychostimulant dependence, unspecified abuse 304.40 [facility] [id number] [place] [address] 93844- 6373 Feb, Chronic airway obstruction, not elsewhere classified 496 ; Back pain 724.5 and Hypertension 401.9 [facility] [id number] [place] [address] 34201- 9315 January, Chronic airway obstruction, not elsewhere classified 496 ; Unspecified disorder of skin and subcutaneous tissue 709.9 ; Lumbago 724.2 ; Essential hypertension, benign 401.1 ; Foot callus 700 and Allergic rhinitis 477.9 [facility] [id number] [place] [address] 92941- 8515 January, [facility] [id number] [place] [address] 72890- 7680 January, [facility] [id number] [place] [address] 29971- 8319 Dec, [facility] [id number] [place] [address] 01197- 4678 Dec, [facility] [place] [facility] [address] [id number] [place] [address]- 9905 Nov, [facility] [place] [facility] [address] [id number] [place] [address]- 9142 Nov, [facility] [place] [facility] [address] [id number] [place] [address]- 0078 Nov, [facility] [place] [facility] [address] [id number] [place] [address]- 0843 Nov, [facility] [place] [facility] [address] [id number] [place] [address]- 0464 Nov, [facility] [place] [facility] [address] [id number] [place] [address]- 8602 Nov, [facility] [place] [facility] [address] [facility] [id number] [place] [address]- 9714 Nov, [facility] [place] [facility] [address] [id number] [place] [address]- 1111 Nov, [facility] [place] [facility] [address] [id number] [place] [address]- 4515 Nov, [facility] [place] [facility] [address] [facility] [id number] [place] [address]- 2644 Oct, [facility] [place] [facility] [address] [id number] [place] [address]- 1540 Oct, 2014 [facility] [place] [facility] [address] [id number] [place] [address]- 8627 Oct, [facility] [place] [facility] [address] [id number] [place] [address]- 9951 Oct, 2014 [facility] [place] [facility] [address] [id number] [place]- 1585 Oct, [facility] [place] [facility] [address] [facility] [id number] [place] [address]- 9254 Oct, [facility] [place] [facility] [address] [id number] [place] [address]- 0339 Oct, 2014 [facility] [place] [facility] [address] [id number] [place] [address]- 1523 Oct, 2014 [facility] [place] [facility] [address] [id number] [place] [address]- 8190 Oct, 2014 [facility] [place] [facility] [address] [id number] [place] [address]- 3349 Oct, 2014 [facility] [place] [facility] [address] [id number] [place] [address]- 1578 Oct, 2014 [facility] [place] [facility] [address] [id number] [place] [address]- 2481 Oct, 2014 [facility] [place] [facility] [address] [id number] [place] [address]- 1061 Oct, [facility] [place] [facility] [address] [id number] [place] [address]- 3947 Sep, [facility] [place] [facility] [address] [id number] [place] [address]- 2553 Sep, [facility] [place] [facility] [address] [id number] [place] [address]- 5531 Sep, [facility] [place] [facility] [address] [id number] [place] [address]- 5514 Sep, [facility] [place] [facility] [address] [id number] [address]- 6795 Sep, [facility] [place] [facility] [address] [id number] [place] [address]- 1201 Sep, [facility] [place] [facility] [address] [id number] [place] [address]- 5805 Sep, [facility] [place] [facility] [address] [id number] [place] [address]- 5342 Sep, [facility] [place] [facility] [address] [id number] [place]- 4353 31 Aug, 2014 [facility] [place] [facility] [address] [id number] [place] [address]- 8846 Aug, [facility] [place] [facility] [address] [id number] [place] [address]- 7476 Aug, [facility] [place] [facility] [address] [id number] [place] [address]- 4556 Aug, [facility] [place] [facility] [address] [id number] [place] [address]- 0003 Aug, [facility] [place] [facility] [address] [id number] [place] [address]- 1363 Aug, [facility] [place] [facility] [address] [id number] [place] [address]- 0661 Aug, [facility] [place] [facility] [address] [id number] [place] [address]- 2027 Aug, [facility] [place] [facility] [address] [id number] [place] [address]- 7702 Aug, [facility] [place] [facility] [address] [id number] [place] [address]- 4335 Aug, [facility] [place] [facility] [address] [id number] [place] [address]- 3811 Aug, [facility] [place] [facility] [address] [id number] [place] [address]- 3115 Aug, [facility] [place] [facility] [address] [id number] [place] [address]- 0887 Aug, [facility] [place] [facility] [address] [id number] [place] [address]- 9209 Aug, [facility] [place] [facility] [address] [id number] [place] [id number] Aug, [facility] [place] [facility] [address] [id number] [place] 1911 Aug, [facility] [place] [facility] [address] [id number] [place] [address]- 3119 Jul, [facility] [place] [facility] [address] [id number] [place] [address]- 0554 Jul, [facility] [place] [facility] [address] [id number] [place] [address]- 5792 Jul, [facility] [place] [facility] [address] [id number] [place] [address]- 9368 Jul, [facility] [place] [facility] [address] [id number] [place] [address]- 0738 Jul, [facility] [place] [facility] [address] [id number] [place] [address]- 1740 Jul, [facility] [place] [facility] [address] [id number] [place] [address]- 1552 Jun, [facility] [place] [facility] [address] [id number] [place] [address]- 5616 Jun, [facility] [place] [facility] [address] [id number] [place] [address]- 1941 Jun, [facility] [place] [facility] [address] [id number] [place] [address]- 0314 Jun, [facility] [place] [facility] [address] [id number] [place] [address]- 6460 Jun, [facility] [place] [facility] [address] [id number] [place] [address]- 7944 Jun, [facility] [place] [facility] [address] [id number] [place] [address]- 0267 Jun, [facility] [place] [facility] [address] [id number] [place] [address]- 3108 Jun, [facility] [place] [facility] [address] [id number] [place] [address]- 9802 Jun, [facility] [place] [facility] [address] [id number] [place] [address]- 6246 Jun, 2013 [facility] [place] [facility] [address] [id number] [place]- 5098 Jun, 2013 [facility] [place] [facility] [address] [id number] [place] [address]- 0533 Jun, 2013 [facility] [place] [facility] [address] [id number] [place] [address]- 9540 Jun, 2013 [facility] [place] [facility] [address] [id number] [place] [address]- 9379 Jun, 2013 [facility] [place] [facility] [address] [id number] [place]- 5058 Jun, 2013 [facility] [place] [facility] [address] [id number] [place] [address]- 3588 Jun, 2013 [facility] [place] [facility] [address] [id number] [place] [address]- 7315 Jun, 2013 [facility] [place] [facility] [address] [id number] [place] [address]- 6292 Jun, 2013 [facility] [place] [facility] [address] [id number] [place] [address]- 7433 Jun, 2013 [facility] [place] [facility] [address] [id number] [place] [address]- 7936 Jun, 2013 [facility] [place] [facility] [address] [id number] [place] [address]- 5694 Jun, [facility] [place] [facility] [address] [id number] [place] [address]- 8228 Jun, [facility] [place] [facility] [address] [id number] [place] [address]- 5161 Jun, [facility] [place] [facility] [address] [id number] [place] [address]- 0046 May, [facility] [place] [facility] [address] [id number] [place] [address]- 9006 May, [facility] [place] [facility] [address] [id number] [place] [address]- 6538 May, 2013 [facility] [place] [facility] [address] [id number] [place] [address]- 7018 May, [facility] [place] [facility] [address] [id number] [place] [address]- 9136 May, [facility] [place] [facility] [address] [id number] [place] [address]- 0882 May, [facility] [place] [facility] [address] [id number] [place] [address]- 7862 May, [facility] [place] [facility] [address] [id number] [place] [address]- 0266 May, [facility] [place] [facility] [address] [id number] [place] [address]- 0826 Apr, [facility] [place] [facility] [address] [id number] [place] [address]- 2451 Apr, [facility] [place] [facility] [address] [id number] [place] [address]- 3051 Apr, [facility] [place] [facility] [address] [id number] [place] [address]- 8051 Apr, [facility] [place] [facility] [address] [id number] [place] [address]- 7780 Apr, [facility] [place] [facility] [address] [id number] [place] [address]- 6508 Apr, [facility] [place] [facility] [address] [id number] [place] [address]- 2542 Apr, [facility] [place] [facility] [address] [id number] [place] [address]- 6533 Apr, [facility] [place] [facility] [address] [id number] [place] [address]- 2540 Apr, [facility] [place] [facility] [address] [id number] [place] [address]- 0465 Apr, [facility] [place] [facility] [address] [id number] [place] [address] Apr, [facility] [place] [facility] [address] [id number] [place] [address] Apr, [facility] [place] [facility] [address] [id number] [place] [address] Apr, [facility] [place] [facility] [address] [id number] [place] [address] Apr, [facility] [place] [facility] [address] [id number] [place] [address] Apr, [facility] [place] [facility] [address] [id number] [place] [address] Apr, [facility] [place] [facility] [address] [id number] [place] [address] Apr, [facility] [place] [facility] [address] [id number] [place] [address] Apr, [facility] [place] [facility] [address] [id number] [place] [address] Apr, [facility] [place] [facility] [address] [id number] [place] [address] Apr, [facility] [place] [facility] [address] [id number] [place] [address] Apr, [facility] [place] [facility] [address] [id number] [place] [address] Apr, [facility] [place] [facility] [address] [id number] [place] [address] Mar, [facility] [place] [facility] [address] [id number] [place] [address] Mar, [facility] [place] [facility] [address] [id number] [place] [address] Mar, [facility] [place] [facility] [address] [id number] [place] [address] Mar, [facility] [place] [facility] [address] [id number] [place] [address] Mar, [facility] [place] [facility] [address] [id number] [place] [address] Mar, [facility] [place] [facility] [address] [id number] [place] [address]- [address] Mar, [facility] [place] [facility] [address] [id number] [place] [address] Mar, [facility] [place] [facility] [address] [id number] [place] [address] Feb, [facility] [place] [facility] [address] [id number] [place] [address] Feb, [facility] [place] [facility] [address] [id number] [place] [address]- [address] Feb, [facility] [place] [facility] [address] [id number] [place] [address] Feb, [facility] [place] [facility] [address] [id number] [place] [address] Feb, [facility] [place] [facility] [address] [id number] [place] [address] Feb, [facility] [place] [facility] [address] [id number] [place] [address]- [address] Feb, [facility] [place] [facility] [address] [id number] [place] [address] January, [facility] [place] [facility] [address] [id number] [place] [address] January, [facility] [place] [facility] [address] [id number] [place] [address] January, [facility] [place] [facility] [address] [id number] [place] [address] January, [facility] [place] [facility] [address] [id number] [place] [address] Dec, [facility] [address] [id number] [place] [address] Dec, [facility] [place] [facility] [address] [id number] [place] [address] Dec, [facility] [address] [id number] [place] [address] Dec, [facility] [place] [facility] [address] [id number] [place] [address] Dec, [facility] [address] [id number] [place] [address] Dec, [facility] [address] [id number] [place] [address] Dec, [facility] [place] [facility] [address] [id number] [place] [address] Dec, [facility] [address] [id number] [place] [address] Dec, [facility] [place] [facility] [address] [id number] [place] [address] Dec, [facility] [address] [id number] [place] [address] Nov, [facility] [place] [facility] [address] [id number] [place] [address] Nov, [facility] [place] [facility] [address] [id number] [place] [address]- [address] Nov, [facility] [place] [facility] [address] [id number] [place] [address] Nov, [facility] [place] [facility] [address] [id number] [place] [address] Oct, [facility] [place] [facility] [address] [id number] [place] [id number] [address] Oct, [facility] [place] [facility] [address] [id number] [place] [address] Oct, [facility] [place] [facility] [address] [id number] [place] [address] Oct, [facility] [place] [facility] [address] [id number] [place] [address] Oct, [facility] [place] [facility] [address] [id number] [place] [address] Oct, [facility] [place] [facility] [address] [id number] [place] [address] Oct, [facility] [place] [facility] [address] [id number] [place] [address] Oct, [facility] [place] [facility] [address] [id number] [place] [address] Sep, [facility] [place] [facility] [address] [id number] [place] [address] Sep, [facility] [place] [facility] [address] [id number] [place] [address] Sep, [facility] [place] [facility] [address] [id number] [place] [address] Sep, [facility] [place] [facility] [address] [id number] [address] Aug, [facility] [place] [facility] [address] [id number] [address] Aug, [facility] [place] [facility] [address] [id number] [place] [address] Aug, [facility] [place] [facility] [address] [id number] [place] [address] Aug, [facility] [place] [facility] [address] [id number] [place] [address] Jul, [facility] [place] [facility] [address] [id number] [place] [address]- [address] Jul, [facility] [address] [id number] [place] [address]100 Jul, [facility] [place] [facility] [address] [id number] [place] [address]- 9640 Jul, [facility] [address] [id number] [place] [address]- [address]65 Jun, [facility] [place] [facility] [address] [id number] [place] [address]- [address] Jun, [facility] [address] [id number] [place] [address]- [address]95 Jun, [facility] [place] [facility] [address] [id number] [place] [address]- 8260 Jun, [facility] [place] [facility] [address] [id number] [place] [address]- [address] Jun, [facility] [address] [id number] [place] [address]- 9457 Jun, [facility] [place] [facility] [address] [id number] [place] [address]- [address] Jun, [facility] [address] [id number] [place] [address]- [address] 17 May, 2013 [facility] [place] [facility] [address] [id number] [place] [address]- 8548 May, [facility] [place] [facility] [address] [id number] [place] [address]- [address]229 May, [facility] [place] [facility] [address] [id number] [place] [address]- [address] Apr, [facility] [place] [facility] [address] [id number] [place] [address]- [address]686 Apr, [facility] [place] [facility] [address] [id number] [place] [address]- 6125 Apr, [facility] [place] [facility] [address] [id number] [place] [address]- 8571 Apr, [facility] [place] [facility] [address] [id number] [place] [address]- 5535 Apr, [facility] [place] [facility] [address] [id number] [place] [address]- [address] Mar, [facility] [place] [facility] [address] [id number] [place] [address]- 3597 Mar, [facility] [place] [facility] [address] [id number] [place] [address]- 9480 Mar, [facility] [place] [facility] [address] [id number] [place] [address]- 2980 Mar, [facility] [place] [facility] [address] [id number] [place] [address]- [address]879 Mar, [facility] [place] [facility] [address] [id number] [place] [address]- 1851 Mar, [facility] [place] [facility] [address] [id number] [place] [address]- 5995 Feb, [facility] [place] [facility] [address] [id number] [place] [address]- 9785 Feb, [facility] [place] [facility] [address] [id number] [place] [address]- 8960 Feb, [facility] [place] [facility] [address] [id number] [address] Feb, [facility] [place] [facility] [address] [id number] [place] [address]- [address]25 Feb, [facility] [place] [facility] [address] [id number] [place] [address]- 7078 Feb, [facility] [place] [facility] [address] [id number] [place] [address]- 8241 Feb, [facility] [place] [facility] [address] [id number] [address] Feb, [facility] [address] [id number] [place] [address]- 8785 Feb, [facility] [address] [id number] [place] [address]- [address] January, [facility] [address] [id number] [place] [address]- [address]277 January, [facility] [address] [id number] [place] [address]- 9882 January, [facility] [address] [id number] [place] [address]- 1409 January, [facility] [address] [id number] [place] [address]- 5964 January, [facility] [address] [id number] [place] [address]- 1459 January, [facility] [address] [id number] [place] [address]- 6816 January, [facility] [address] [id number] [place] [address]- 8514 January, [facility] [address] [id number] [place] [address]- 1706 January, [facility] [address] [id number] [place] [address]- 5863 January, [facility] [address] [id number] [place] [address]- 3010 Dec, [facility] [address] [id number] [place] [address]- 0860 Dec, [facility] [address] [id number] [place] [address]- 8802 Dec, [facility] [address] [id number] [place] [address]- 9839 Dec, [facility] [address] [address] Dec, [facility] [address] [address] Dec, [facility] [address] [address] 1126 Nov, [facility] [address] [address]104 Nov, [facility] [address] [address] Nov, [facility] [id number] [place] [address]- [address]17 Oct, [facility] [address] [address]396 Oct, [facility] [address] [id number] [address] Oct, [facility] [address] [address]- [address] Oct, [facility] [address] [address]- 9867 Oct, [facility] [address] [address]- [address]141 Jun, IMMUNIZATIONS No Known Immunizations SOCIAL HISTORY Never Assessed REASON FOR VISIT Eye Exam PLAN OF CARE VITAL SIGNS MEDICATIONS Unknown [...]
--- OUTSIDE RECORDS SUMMARY | 2018-11-29 19:17 | XMS REPORT ---
Author Author FRANK MULLINS Organization [facility] Address [address] [place] [address] Care Team Providers Care Gaming Host Name Role Phone FRANK MULLINS Unavailable PROBLEMS Type Condition ICD9-CM Code [id number] Code Onset Dates Condition Status SNOMED Code Problem Back pain M54.9 Active 031988648 Problem Amphetamine abuse F15.10 Active 72631917 Problem Pain in left shoulder M25.512 Active 17762385 Problem COPD (chronic obstructive pulmonary disease) J44.9 Active 85966721 Problem Anxiety F41.9 Active 88465573 Problem Essential hypertension I10 Active 06489530 Problem Mood disorder F39 Active 97254496 Problem Other chronic pain G89.29 Active 55792884 Problem 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 Active 1591048 Problem Socially inappropriate behavior F99 Active 113118294 Problem Seasonal allergic rhinitis due to other allergic trigger J30.89 Active 075548012 Problem Arthritis M19.90 Active 9798321 ALLERGIES Substance Reaction Event Type Date Status Sulfamethoxazole-Trimethoprim Unknown Drug Allergy Jun, Active ENCOUNTERS Encounter Location Date Diagnosis [facility] [id number], [place] [address] Jun, [address] [place] [id number] Jun, Vision changes H53.9 [facility] [id number], [place] [address] Jun, Other chronic pain G89.29 [address] [place] [id number] Jun, Low back pain M54.5 ; Other chronic pain G89.29 and Mood disorder F39 [address] [place] [id number] Jun, Pain in right leg M79.604 ; Pain of left leg M79.605 and Other chronic pain G89.29 [address] [place] [id number] May, Low back pain M54.5 and Other chronic pain G89.29 [facility] [id number] [place] [address] 62787- 2632 May, Lumbar back pain M54.5 [facility] [id number] [place] [address] 11324- 9934 Apr, Lumbar back pain M54.5 and Mood disorder F39 [facility] [id number] [place] [address] 83271- 0944 Apr, Mood disorder F39 [address] [place] [id number] Mar, Mood disorder F39 and Lumbosacral pain M54.5 [address] [place] [id number] Feb, Low back pain M54.5 ; Other chronic pain G89.29 and Seasonal allergic rhinitis due to other allergic trigger J30.89 [facility] [id number] [place] [address] 58233 -1096 Feb, [facility] [id number] [place] [address] 18286- 7724 Nov, [facility] [id number] [place] [address] 49925- 1466 Sep, [facility] [id number] [place] [address] 33732- 2288 Aug, [facility] [id number] [place] [address] 10721- 9172 Aug, [facility] [id number] [place] [address] 67098- 6995 Jul, [facility] [id number] [place] [address] 02217 -5484 Jul, Back pain M54.9 [facility] [id number] [place] [address] 05818- 4172 Jul, [facility] [address], [place] [address] Jun, [facility] [id number] [place] [address] 11187- 3179 Jun, [facility] [id number] [place] [address] 72617- 9311 Jun, Arthritis M19.90 ; Pain in left shoulder M25.512 and Lumbar back pain M54.5 [facility] [id number] [place] [address] 85995- 9836 May, [facility] [id number] [place] [address] 57535- 4510 Apr, [facility] [id number] [place] [address] 87433- 7965 Apr, [id number] [place] [address] 34747- 7970 Apr, Essential hypertension I10 and Arthritis M19.90 [facility] [id number] [place] [address] 68950- 6656 Apr, [facility] [id number] [place] [address] 92527- 0079 Mar, [facility] [id number] [place] [address] 31389- 1440 Mar, Lumbar pain M54.5 ; 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 ; Allergic rhinitis, unspecified allergic rhinitis type J30.9 and Hematuria R31.9 [facility] [address], [place] [address] Mar, [facility] [id number] [place] [address] 01967 -0660 January, Open bite, right lower leg, initial encounter S81.851A and Pain in left shoulder M25.512 [facility] [id number] [place] [address] 72452 -9855 Dec, [facility] [address] [place] [address] 66529 -6580 Dec, Low back pain M54.5 [facility] [id number] [place] [address] 89277- 6331 Aug, [facility] [id number] [place] [address] 19538 -6285 Apr, Perforated left tympanic membrane on examination H72.92 and Deafness in left ear H91.92 [facility] [id number] [place] [address] 47362- 4342 Apr, [facility] [id number] [place] [address] 10463- 9015 Mar, Lumbar back pain M54.5 ; Essential hypertension I10 ; Chronic obstructive pulmonary disease, unspecified COPD type J44.9 ; Anxiety F41.9 ; Long-term use of high-risk medication Z79.899 and Socially inappropriate behavior F[id number] [place] [address] 51311- 7147 Mar, [facility] [id number] [place] [address] 39727- 2742 Mar, Low back pain M54.5 [facility] [id number] [place] [address] 84995- 9743 Mar, [facility] [id number] [place] [address] 56103- 8985 Mar, [facility] [id number] [place] [address] 69080- 6944 Feb, Impingement syndrome, shoulder, left M75.42 and Superior glenoid labrum lesion of left shoulder, subsequent encounter S43.432D [facility] [address] [place] [address] 80971- 1265 January, [facility] [id number] [place] [address] 41857- 6524 January, [facility] [id number] [place] [address] 68912- 4967 January, [facility] [id number] [place] [address] 27372- 5563 Dec, Impingement syndrome, shoulder, left M75.42 [facility] [id number] [place] [address] 78345- 2298 Dec, [facility] [id number] [place] [address] 34749- 7023 Nov, [facility] [id number] [place] [address] 42610- 7412 Nov, Essential hypertension I10 ; Pain in left shoulder M25.512 ; Amphetamine abuse F15.10 and Callus of foot L84 [id number] [place] [address] 60086- 6722 Nov, Shoulder pain, left M25.512 [facility] [id number] [place] [address] 77518- 2600 Nov, [facility] [id number] [place] [address] 32293- 6852 Nov, [facility] [id number] [place] [address] 57207- 3038 Nov, Allergic rhinitis, unspecified allergic rhinitis type J30.9 ; Right wrist pain M25.531 ; Back pain M54.9 and Essential hypertension I10 [facility] [id number] [place] [address] 04980- 5526 Nov, [facility] [address] 89358- 4506 Oct, [facility] [id number] [place] [address] 65758- 9259 Oct, Tobacco abuse Z72.0 ; Lumbar back pain M54.5 and Foot callus L84 [facility] [id number] [place] [address] 61481- 1037 Sep, [facility] [id number] [place] [address] 14058- 9152 Sep, Lumbar pain M54.5 ; Essential hypertension I10 ; COPD ( chronic obstructive pulmonary disease) J44.9 ; Anxiety F41.9 and Allergic rhinitis, unspecified allergic rhinitis type J30.9 [address] 48030- 1746 Aug, [address] 97404- 3472 Aug, [address] 95133- 1775 Jul, [address] 61125- 8438 Jul, Lumbar back pain M54.5 ; Essential hypertension I10 ; COPD ( chronic obstructive pulmonary disease) J44.9 ; Anxiety F41.9 and Allergic rhinitis J30.9 [id number] [place] [address] 18522- 2911 Apr, Positive urine drug screen 796.0 and Chronic lumbar pain 724.2 [id number] [place] [address] 54275- 5193 Apr, [id number] [place] [address] 38704- 5222 Apr, [id number] [place] [address] 20488- 3774 Apr, [address] 92815- 1488 06 Apr, 2015 Lumbago 724.2 ; Unspecified viral hepatitis C without hepatic coma 070.70 ; Unspecified disorder of skin and subcutaneous tissue 709.9 and Long-term use of high-risk medication V58.69 [id number] [place] [address] 63843- 5044 Mar, Vision changes 368.9 ; Allergic rhinitis 477.9 and Callus of foot 700 [facility] [id number] [place] [address] 25127- 2923 Mar, [facility] [id number] [place] [address] 58783- 5135 Mar, Chronic airway obstruction, not elsewhere classified 496 ; Essential hypertension, benign 401.1 ; Lumbago 724.2 ; Insomnia, unspecified 780.52 ; Anxiety state, unspecified 300.00 and Unspecified disorder of skin and subcutaneous tissue 709.9 [facility] [id number] [place] [address] [id number] Mar, Dental examination V72.2 [facility] [id number] [place] [address] 16362- 5855 Mar, [facility] [address] 40735- 7018 Feb, Amphetamine and other psychostimulant dependence, unspecified abuse 304.40 [facility] [id number] [place] [address] 79831- 1988 Feb, Chronic airway obstruction, not elsewhere classified 496 ; Back pain 724.5 and Hypertension 401.9 [facility] [id number] [place] [address] 89299- 2463 January, Chronic airway obstruction, not elsewhere classified 496 ; Unspecified disorder of skin and subcutaneous tissue 709.9 ; Lumbago 724.2 ; Essential hypertension, benign 401.1 ; Foot callus 700 and Allergic rhinitis 477.9 [facility] [id number] [place] [address] 98977- 2991 January, [facility] [id number] [place] [address] 40339- 5499 January, [facility] [id number] [place] [address] 06874- 6855 Dec, [facility] [place] [facility] [address] [id number] [place] [address]- 6242 Dec, [facility] [place] [facility] [address] [id number] [place] [address]- 5886 Nov, [facility] [place] [facility] [address] [id number] [place] [address]- 6687 Nov, [facility] [place] [facility] [address] [id number] [place] [address]- 0611 Nov, [facility] [place] [facility] [address] [id number] [place] [address]- 2114 Nov, [facility] [place] [facility] [address] [id number] [place] [address]- 8132 Nov, [facility] [place] [facility] [address] [id number] [place] [address]- 7526 Nov, [facility] [place] [facility] [address] [id number] [place] [address]- 6057 16 Nov, 2014 [facility] [place] [facility] [address] [id number] [place] [address]- 3570 Nov, [facility] [place] [facility] [address] [id number] [place] [address]- 3759 Nov, [facility] [place] [facility] [address] [id number] [place] [address]- 3619 Oct, 2014 [facility] [place] [facility] [address] [id number] [place] [address]- 2781 Oct, 2014 [facility] [place] [facility] [address] [id number] [place] [address]- 2146 Oct, [facility] [place] [facility] [address] [id number] [place] [address]- 4406 Oct, 2014 [facility] [place] [facility] [address] [id number] [place] [address]- 5948 Oct, 2014 [facility] [place] [facility] [address] [id number] [place] [address]- 8997 Oct, 2014 [facility] [place] [facility] [address] [id number] [place] [address]- 7135 Oct, 2014 [facility] [place] [facility] [address] [id number] [place] 4986 Oct, 2014 [facility] [place] [facility] [address] [id number] [place] [address]- 4236 Oct, 2014 [facility] [place] [facility] [address] [id number] [place] [address]- 7942 Oct, 2014 [facility] [place] [facility] [address] [id number] [place] [address]- 0833 Oct, 2014 [facility] [place] [facility] [address] [facility] [id number] [place] [address]- 4900 Oct, 2014 [facility] [place] [facility] [id number] [place] [address]- 5489 Oct, [facility] [place] [facility] [address] [facility] [id number] [place] [address]- 9820 Sep, [facility] [place] [facility] [address] [facility] [id number] [place] [address]- 7622 Sep, [facility] [place] [facility] [address] [facility] [id number] [place] [address]- 1022 Sep, [facility] [place] [facility] [address] [facility] [id number] [place] [address]- 5709 Sep, [facility] [place] [facility] [address] [id number], [place] [address]- 8980 Sep, [facility] [place] [facility] [address] [id number] [place] [address]- 4715 Sep, [facility] [place] [facility] [address] [facility] [id number] [place] [address]- 8097 Sep, [facility] [place] [facility] [address] [facility] [id number], [place] [address]- 5143 Sep, [facility] [place] [facility] [address] [id number] [place] [address]- 2841 Aug, [facility] [place] [facility] [address] [id number] [place] [address]- 4386 Aug, [facility] [place] [facility] [address] [id number] [place] [address]- 1926 Aug, [facility] [place] [facility] [address] [id number] [place] [address]- 8476 Aug, [facility] [place] [facility] [address] [id number] [place] 0257 Aug, [facility] [place] [facility] [address] [id number] [place] [address]- 0506 Aug, [facility] [place] [facility] [address] [id number] [place] 9777 Aug, [facility] [place] [facility] [address] [id number] [place] [address]- 6085 Aug, [facility] [place] [facility] [address] [id number] [place] [address]- 6516 Aug, [facility] [place] [facility] [address] [id number] [place] [address]- 3479 Aug, [facility] [place] [facility] [address] [id number] [place] 0909 Aug, [facility] [place] [facility] [address] [id number] [place] [address]- 8462 Aug, [facility] [place] [facility] [address] [id number] [place] [address]- 9089 Aug, [facility] [place] [facility] [address] [id number] [place] [address]- 2896 Aug, [facility] [place] [facility] [address] [id number] [place] [id number] Aug, [facility] [place] [facility] [address] [id number], [place] [address]- 1064 Aug, [facility] [place] [facility] [address] [id number] [place] [address]- 9433 Jul, [facility] [place] [facility] [address] [id number] [place] [address]- 4565 Jul, [facility] [place] [facility] [address] [id number] [place] [address]- 7336 Jul, [facility] [place] [facility] [address] [id number] [place] [address]- 8460 Jul, [facility] [place] [facility] [address] [id number] [place] [address]- 0783 Jul, [facility] [place] [facility] [address] [id number] [place] [address]- 4227 Jul, [facility] [place] [facility] [address] [id number] [place] [address]- 0440 Jun, [facility] [place] [facility] [address] [id number] [place] [address]- 4716 Jun, [facility] [place] [facility] [address] [id number] [place] [address]- 6672 Jun, [facility] [place] [facility] [address] [id number] [place] [address]- 7401 Jun, [facility] [place] [facility] [address] [id number], [place] [address]- 7664 Jun, [facility] [place] [facility] [address] [id number], [place] [address]- 8906 Jun, [facility] [place] [facility] [address] [id number] [place] [address]- 2259 Jun, [facility] [place] [facility] [address] [id number] [place] [address]- 6146 Jun, [facility] [place] [facility] [address] [id number] [place] [address]- 9940 Jun, [facility] [place] [facility] [address] [id number] [place] [address]- 0179 Jun, 2013 [facility] [place] [facility] [address] [id number] [place] [address]- 1780 Jun, 2013 [facility] [place] [facility] [address] [id number] [place] [address]- 7704 Jun, 2013 [facility] [place] [facility] [address] [id number] [place] [address]- 3596 Jun, 2013 [facility] [place] [facility] [address] [id number] [place] [address]- 0291 Jun, 2013 [facility] [place] [facility] [address] [id number] [place] 1794 Jun, 2013 [facility] [place] [facility] [address] [id number] [place] [address]- 4974 Jun, 2013 [facility] [place] [facility] [address] [id number] [place] [address]- 5619 Jun, 2013 [facility] [place] [facility] [address] [id number] [place] [address]- 5322 Jun, 2013 [facility] [place] [facility] [address] [id number] [place] [address]- 7029 Jun, 2013 [facility] [place] [facility] [address] [id number] [place] [address]- 9026 Jun, 2013 [facility] [place] [facility] [address] [id number] [place] [address]- 9878 Jun, 2013 [facility] [place] [facility] [address] [id number] [place] [address]- 4600 Jun, 2013 [facility] [place] [facility] [address] [id number] [place] [address]- 7073 Jun, 2013 [facility] [place] [facility] [address] [id number] [place] [address]- 2824 29 May, 2013 [facility] [place] [facility] [address] [id number] [id number] 4448 May, [facility] [place] [facility] [address] [id number] [place] [address]- 9971 May, [facility] [place] [facility] [address] [id number] [place] [address]- 3846 May, [facility] [place] [facility] [address] [id number] [place] [address]- 6442 May, [facility] [place] [facility] [address] [id number] [place] [address]- 2188 May, [facility] [place] [facility] [address] [id number] [place] [address]- 5350 May, [facility] [place] [facility] [address] [id number] [place] [address]- 1348 May, [facility] [place] [facility] [address] [id number] [place] [address]- 0752 Apr, [facility] [place] [facility] [address] [id number] [place] [address]- 3211 Apr, [facility] [place] [facility] [address] [id number] [place] [address]- 1990 Apr, [facility] [place] [facility] [address] [id number] [place] [address]- 4824 Apr, [facility] [place] [facility] [address] [id number] [place] [address]- 7954 Apr, [facility] [place] [facility] [address] [id number] [place] [address]- 7812 Apr, [facility] [place] [facility] [address] [id number] [place] [address]- 1788 Apr, [facility] [place] [facility] [address] [id number] [place] [address]- 1541 Apr, [facility] [place] [facility] [address] [id number] [place] [address] Apr, [facility] [place] [facility] [address] [id number] [place] [address] Apr, [facility] [place] [facility] [address] [id number] [place] [address] Apr, [facility] [place] [facility] [address] [id number] [place] [address] Apr, [facility] [place] [facility] [address] [id number] [place] [address] Apr, [facility] [place] [facility] [address] [id number] [place] [address] Apr, [facility] [place] [facility] [address] [id number] [place] [address] Apr, [facility] [place] [facility] [address] [id number] [place] [address] Apr, [facility] [place] [facility] [address] [id number] [place] [address] Apr, [facility] [place] [facility] [address] [id number] [place] [address] Apr, [facility] [place] [facility] [address] [id number] [place] [address] Apr, [facility] [place] [facility] [address] [id number] [place] [address] Apr, [facility] [place] [facility] [address] [id number] [place] [address] Apr, [facility] [place] [facility] [address] [id number] [place] [address] Apr, [facility] [place] [facility] [address] [id number] [place] [address] Mar, [facility] [place] [facility] [address] [id number] [place] [address] Mar, [facility] [place] [facility] [address] [id number] [place] [address] Mar, [facility] [place] [facility] [address] [id number] [place] [address] Mar, [facility] [place] [facility] [address] [id number] [place] [address] Mar, [facility] [place] [facility] [address] [id number] [place] [address] Mar, [facility] [place] [facility] [address] [id number] [place] [address] Mar, [facility] [place] [facility] [address] [id number] [place] [address] Mar, [facility] [place] [facility] [address] [id number] [place] [address] Feb, [facility] [place] [facility] [address] [id number] [place] [address] Feb, [facility] [place] [facility] [address] [id number] [place] [address] Feb, [facility] [place] [facility] [address] [id number] [place] [address] Feb, [facility] [place] [facility] [address] [id number] [place] [address] Feb, [facility] [place] [facility] [address] [id number] [place] [address] Feb, [facility] [place] [facility] [address] [id number] [place] [address] Feb, [facility] [place] [facility] [address] [id number] [place] [address] January, [facility] [place] [facility] [address] [id number] [place] [address] January, [facility] [place] [facility] [address] [id number] [place] [address] January, [facility] [place] [facility] [address] [id number] [place] [address] January, [facility] [place] [facility] [address] [id number] [place] [address] Dec, [facility] [place] [facility] [address] [id number] [place] [address] Dec, [facility] [place] [facility] [address] [id number] [place] [address] Dec, [facility] [place] [facility] [address] [id number] [place] [address] Dec, [facility] [place] [facility] [address] [id number] [place] [place] [address] Dec, [facility] [place] [facility] [address] [id number] [place] [address] Dec, [facility] [place] [facility] [address] [id number] [place] [address] Dec, [facility] [place] [facility] [address] [id number] [place] [address] Dec, [facility] [place] [facility] [address] [id number] [place] [address] Dec, [facility] [place] [facility] [address] [id number] [place] [address] Dec, [facility] [place] [facility] [address] [id number] [place] [address] Nov, [facility] [place] [facility] [address] [id number], [place] [address] Nov, [facility] [place] [facility] [address] [id number] [place] [address]484 Nov, [facility] [place] [facility] [address] [id number] [place] [address] Nov, [facility] [place] [facility] [address] [id number] [place] [address] Oct, [facility] [place] [facility] [address] [id number] [place] [address] Oct, [facility] [place] [facility] [address] [id number] [place] [address] Oct, [facility] [place] [facility] [address] [id number] [place] [address] Oct, [facility] [place] [facility] [address] [id number] [place] [address] 8936 Oct, [facility] [place] [facility] [address] [id number] [place] [address]69 Oct, [facility] [place] [facility] [address] [id number] [place] [address] 7736 Oct, [facility] [place] [facility] [address] [id number] [place] [address]272 Oct, [facility] [place] [facility] [address] [id number] [place] [address] Sep, [facility] [place] [facility] [address] [id number] [place] [address] Sep, [facility] [place] [facility] [address] [facility] [id number] [place] [address]- 8582 Sep, [facility] [place] [facility] [address] [facility] [id number] [place] [address] 9573 Sep, [facility] [place] [facility] [address] [id number] [place] [address]- [address]66 Aug, [facility] [place] [facility] [address] [id number] [place] [address] Aug, [facility] [place] [facility] [address] [id number] [place] [address] Aug, [facility] [place] [facility] [address] [id number] [place] [address]- [address] Aug, [facility] [place] [facility] [address] [id number] [place] [address]- [address]85 Jul, [facility] [place] [facility] [address] [id number] [place] [address]9 Jul, [facility] [place] [facility] [address] [id number] [place] [address] Jul, [facility] [place] [facility] [address] [id number] [place] [address]26 Jul, [facility] [place] [facility] [address] [id number] [place] [address] Jun, [facility] [place] [facility] [address] [id number] [place] [address] 1701 Jun, [facility] [place] [facility] [address] [id number] [place] [address] 1316 Jun, [facility] [place] [facility] [address] [id number] [place] [address] 4[address] Jun, [facility] [place] [facility] [address] [id number], [place] [address] Jun, [facility] [place] [facility] [address] [id number] [place] [address]- 8290 Jun, [facility] [place] [facility] [address] [id number], [place] [address] 08 Jun, 2013 [facility] [place] [facility] [address] [id number], [place] [address] 17 May, 2013 [facility] [place] [facility] [address] [id number], [place] [address] May, [facility] [place] [facility] [address] [id number] [place] [address]- 1799 May, [facility] [place] [facility] [address] [id number], [place] [address] Apr, [facility] [place] [facility] [address] [id number], [place] [address] Apr, [facility] [place] [facility] [address] [id number] [place] [address]- 1422 Apr, [facility] [place] [facility] [address] [id number] [place] [address]- 9236 Apr, [facility] [place] [facility] [address] [id number] [place] [address]- 2309 Apr, [facility] [place] [facility] [address] [id number] [place] [address] 4032 Mar, [facility] [place] [facility] [address] [id number] [place] [address] Mar, [facility] [place] [facility] [address] [id number] [place] [address] 1239 Mar, [facility] [place] [facility] [address] [id number] [place] [address]- 8083 Mar, [facility] [place] [facility] [address] [id number] [place] [address]- 1147 Mar, [facility] [place] [facility] [address] [id number] [place] [address]- 4[address] Mar, [facility] [place] [facility] [address] [id number] [place] [address]- 7365 Feb, [facility] [place] [facility] [address] [id number] [place] [address]- 4433 Feb, [facility] [place] [facility] [address] [id number] [place] [address]- 3593 Feb, [facility] [place] [facility] [address] [id number] [place] [address]- 4587 Feb, [facility] [place] [facility] [address] [id number] [place] [address]- 3169 Feb, [facility] [place] [facility] [address] [id number] [place] [address]- 3866 Feb, [facility] [place] [facility] [address] [id number] [place] [address]- [address] Feb, [facility] [address] [id number] [place] [address] 2545 Feb, [facility] [address] [id number] [place] [address] 2546 Feb, [facility] [address] [id number] [place] [address] 3366 January, [facility] [address] [id number] [place] [address]- 0426 January, [facility] [address] [id number] [place] [address]- 5446 January, [facility] [address] [id number] [place] [address] 3666 January, [facility] [address] [id number] [place] [address]- 1466 January, [facility] [address] [id number] [place] [address]- 6489 January, [facility] [address] [id number] [place] [address]- 7381 January, [facility] [address] [id number] [place] [address]- 4686 January, [facility] [address] [id number] [place] [address]- 4626 January, [facility] [address] [id number] [place] [address]- 2546 January, [facility] [address] [id number] [place] [address]- 9424 Dec, [facility] [address] [id number] [place] [address]- 0086 Dec, [facility] [address] [id number] [place] [address]- 0819 Dec, [facility] [address] [id number], [place] [address]- 4[address] Dec, [facility] [id number], [place] [address]160 Dec, [facility] [id number] [address]40 Dec, [facility] [id number], [place] [address]- 8098 Nov, [facility] [id number] [place] [address]- [address]609 Nov, [facility] [id number] [place] [address]- 2011 Nov, [facility] [id number] [place] [address]- 9728 Oct, [facility] [id number] [place] [address]- 8027 Oct, [facility] [id number], [place] [address] 3021 Oct, [facility] [address], [place] [address]- 8190 Oct, [facility] [id number], [place] [address]- 7512 Oct, [facility] [address], [place] [address]- 7288 Jun, IMMUNIZATIONS No Known Immunizations SOCIAL HISTORY Never Assessed REASON FOR VISIT [facility] PLAN OF CARE VITAL SIGNS Height 71 in 2018-07-17 Weight 181 lbs 2018-07-17 Heart Rate 88 bpm 2018-07-17 Respiratory Rate 18 2018-07-17 BMI 25.24 kg/m2 2018-07-17 Blood pressure systolic 150 mmHg 2018-07-17 Blood pressure diastolic 100 mmHg 2018-07-17 MEDICATIONS Medication Instructions Dosage Frequency Start Date End Date Duration Status Silvadene 1 % Externally twice a dayas needed 1 application to affected area Jun, Active RESULTS No Results PROCEDURES No Known [...]
--- OUTSIDE RECORDS SUMMARY | 2018-11-29 19:18 | XMS REPORT ---
Author Author FRANK MULLINS Organization [facility] Address [address] [place] [address] Care Team Providers Care Joint Creaser Name Role Phone FRANK MULLINS Unavailable PROBLEMS Type Condition ICD9-CM Code JJA90-CV Code Onset Dates Condition Status SNOMED Code Problem Back pain M54.9 Active 336726610 Problem Amphetamine abuse F15.10 Active 51939171 Problem Pain in left shoulder M25.512 Active 24935984 Problem COPD (chronic obstructive pulmonary disease) J44.9 Active 15828894 Problem Anxiety F41.9 Active 96570093 Problem Essential hypertension I10 Active 42847168 Problem Mood disorder F39 Active 27451429 Problem Other chronic pain G89.29 Active 77287425 Problem 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 Active 1933011 Problem Socially inappropriate behavior F99 Active 529579787 Problem Seasonal allergic rhinitis due to other allergic trigger J30.89 Active 573426911 Problem Arthritis M19.90 Active 3182890 ALLERGIES Substance Reaction Event Type Date Status Sulfamethoxazole-Trimethoprim Unknown Drug Allergy Jun, Active ENCOUNTERS Encounter Location Date Diagnosis [address] [id number] Jun, Pain in right leg M79.604 ; Pain of left leg M79.605 and Other chronic pain G89.29 [address] [place] [id number] May, Low back pain M54.5 and Other chronic pain G89.29 [facility] [address] [facility] [id number], [place] [address] May, Lumbar back pain M54.5 [facility] [address] [facility] [id number], [place] [address] Apr, Lumbar back pain M54.5 and Mood disorder F39 [facility] [address] [facility] [id number], [place] [address] Apr, Mood disorder F39 [facility] [address] [place] [id number] Mar, Mood disorder F39 and Lumbosacral pain M54.5 [facility] [address] [id number] Feb, Low back pain M54.5 ; Other chronic pain G89.29 and Seasonal allergic rhinitis due to other allergic trigger J30.[address] [facility] [id number] [place] [address] 77326 -9515 Feb, [facility] [id number] [place] [address] 54305- 9760 Nov, [facility] [address] [address] Sep, [facility] [id number] [place] [address] 18276- 0137 Aug, [facility] [id number] [place] [address] 41268- 3209 Aug, [facility] [id number] [place] [address] 22086- 3211 Jul, [facility] [id number] [place] [address] 72135 -4010 Jul, Back pain M54.9 [facility] [id number] [place] [address] 18577- 3897 Jul, [facility] [id number] [place] [address] 89223- 8218 Jun, [facility] [id number] [place] [address] 72871- 0740 Jun, [facility] [id number] [place] [address] 62226- 3338 Jun, Arthritis M19.90 ; Pain in left shoulder M25.512 and Lumbar back pain M54.5 [facility] [id number] [place] [address] 05206- 0972 May, [facility] [id number] [place] [address] 72786- 3751 Apr, [place] [id number] [place] [address] 30338- 7152 Apr, [place] [id number] [place] [address] 95433- 9743 Apr, Essential hypertension I10 and Arthritis M19.90 [place] [address] [address]- 5616 Apr, [place] [id number] [place] [address] 48193- 0477 Mar, [place] [id number] [place] [address] 42907- 1910 Mar, Lumbar pain M54.5 ; 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 ; Allergic rhinitis, unspecified allergic rhinitis type J30.9 and Hematuria R31.9 [place] [id number] [place] [address] 05751- 4929 Mar, [facility] [place] [id number] [place] [address] 54983 -2596 January, Open bite, right lower leg, initial encounter S81.851A and Pain in left shoulder M25.512 [facility] [place] [id number] [place] [address] 66306 -9281 Dec, [facility] [id number] [place] [address] 82561 -8625 Dec, Low back pain M54.5 [place] [id number] [place] [address] 06586- 4234 Aug, [facility] [id number] [place] [address] 91986 -0401 Apr, Perforated left tympanic membrane on examination H72.92 and Deafness in left ear H91.92 [place] [address] [id number] [address] 8116 Apr, [facility] [id number] [place] [address] 98799- 0123 Mar, Lumbar back pain M54.5 ; Essential hypertension I10 ; Chronic obstructive pulmonary disease, unspecified COPD type J44.9 ; Anxiety F41.9 ; Long-term use of high-risk medication Z79.899 and Socially inappropriate behavior F99 [facility] [id number] [place] [address] 78347- 1450 Mar, [facility] [id number] [place] [address] 28466- 7470 Mar, Low back pain M54.5 [facility] [id number] [place] [address] 26905- 9424 Mar, [place] [id number] [place] [address] 19905- 9330 Mar, [facility] [id number] [place] [address] 57054- 0858 Feb, Impingement syndrome, shoulder, left M75.42 and Superior glenoid labrum lesion of left shoulder, subsequent encounter S43.432D [facility] [address] [id number] [address]28 January, [place] [id number] [place] [address] 51351- 3010 January, [facility] [id number] [place] [address] 90549- 9980 January, [facility] [id number] [place] [address] 62860- 6533 Dec, Impingement syndrome, shoulder, left M75.42 [facility] [address] [place] [address] 92162- 7708 Dec, [facility] [id number] [place] [address] 82164- 8823 30 Nov, 2015 [facility] [address] [place] [address] 50556- 7681 Nov, Essential hypertension I10 ; Pain in left shoulder M25.512 ; Amphetamine abuse F15.10 and Callus of foot L84 [facility] [id number] [place] [address] 87248- 3215 Nov, Shoulder pain, left M25.512 [place] [id number] [place] [address] 13928- 9841 14 Nov, 2015 [place] [id number] [place] [address] 60512- 1893 Nov, [place] [id number] [place] [address] 53501- 6596 Nov, Allergic rhinitis, unspecified allergic rhinitis type J30.9 ; Right wrist pain M25.531 ; Back pain M54.9 and Essential hypertension I10 [place] [id number] [place] [address] 85070- 5162 Nov, [place] [id number] [place] [address] 38182- 3208 Oct, [place] [id number] [place] [address] 35141- 7246 Oct, Tobacco abuse Z72.0 ; Lumbar back pain M54.5 and Foot callus L84 [place] [id number] [place] [address] 83724- 1968 Sep, [place] [id number] [place] [address] 35728- 8733 Sep, Lumbar pain M54.5 ; Essential hypertension I10 ; COPD ( chronic obstructive pulmonary disease) J44.9 ; Anxiety F41.9 and Allergic rhinitis, unspecified allergic rhinitis type J30.9 [facility] [id number] [place] [address] 58482- 1506 Aug, [place] [address] [place] [place] [address] 17867- 3012 Aug, [place] [address] 73182- 6649 Jul, [place] [id number] [place] [address] 68573- 5250 Jul, Lumbar back pain M54.5 ; Essential hypertension I10 ; COPD ( chronic obstructive pulmonary disease) J44.9 ; Anxiety F41.9 and Allergic rhinitis J30.9 [id number] [place] [address] 50676- 7471 Apr, Positive urine drug screen 796.0 and Chronic lumbar pain 724.[address] [address]- 8758 Apr, [address] 58626- 6155 Apr, [place] [id number] [place] [address] 36336- 8954 Apr, [place] [id number] [place] [address] 36099- 3660 Apr, Lumbago 724.2 ; Unspecified viral hepatitis C without hepatic coma 070.70 ; Unspecified disorder of skin and subcutaneous tissue 709.9 and Long-term use of high-risk medication V58.69 [place] [id number] [place] [address] 16285- 7100 Mar, Vision changes 368.9 ; Allergic rhinitis 477.9 and Callus of foot [id number] [place] [address] 94231- 8746 Mar, [place] [id number] [place] [address] 91958- 0411 Mar, Chronic airway obstruction, not elsewhere classified 496 ; Essential hypertension, benign 401.1 ; Lumbago 724.2 ; Insomnia, unspecified 780.52 ; Anxiety state, unspecified 300.00 and Unspecified disorder of skin and subcutaneous tissue 709.9 [facility] [address] [id number] [id number] Mar, Dental examination V72.2 [facility] [address] [place] [address] 27326- 2682 Mar, [facility] [id number] [place] [address] 99747- 9733 Feb, Amphetamine and other psychostimulant dependence, unspecified abuse 304.40 [facility] [id number] [place] [address] 53011- 2838 Feb, Chronic airway obstruction, not elsewhere classified 496 ; Back pain 724.5 and Hypertension 401.9 [facility] [id number] [place] [address] 10632- 4107 January, Chronic airway obstruction, not elsewhere classified 496 ; Unspecified disorder of skin and subcutaneous tissue 709.9 ; Lumbago 724.2 ; Essential hypertension, benign 401.1 ; Foot callus 700 and Allergic rhinitis 477.9 [facility] [address] [place] [address] 59885- 0682 January, [facility] [id number] [place] [address] 51248- 5964 January, [facility] [address] [place] [address] 91249- 4585 Dec, [facility] [id number] [place] [address] 94702- 4934 Dec, [facility] [address] [address]- 6311 Nov, [facility] [id number] [place] [address] 90445- 7631 Nov, [facility] [address] [place] [address] 25848- 3193 Nov, [facility] [id number] [place] [address]- 9793 Nov, 2014 [facility] [place] [facility] [address] [id number] [place] [address]- 5729 Nov, 2014 [facility] [place] [facility] [address] [id number] [place] [address]- 6825 Nov, 2014 [facility] [place] [facility] [address] [id number] [place] [address]- 1114 16 Nov, 2014 [facility] [place] [facility] [address] [id number] [place] [address]- 9297 Nov, 2014 [facility] [place] [facility] [address] [id number] [place] [address]- 8488 Nov, 2014 [facility] [place] [facility] [address] [id number] [place] [address]- 9368 Oct, 2014 [facility] [place] [facility] [address] [id number] [place] [address]- 1052 Oct, 2014 [facility] [place] [facility] [address] [id number] [place] [address]- 1740 Oct, 2014 [facility] [place] [facility] [address] [id number] [place] [address]- 0405 Oct, 2014 [facility] [place] [facility] [address] [facility] [id number] [place] [address]- 7552 Oct, 2014 [facility] [place] [facility] [address] [id number] [place] [address]- 6385 Oct, 2014 [facility] [place] [facility] [address] [id number] [place] [address]- 6012 Oct, 2014 [facility] [place] [facility] [address] [id number] [place] [address]- 0119 Oct, 2014 [facility] [place] [facility] [address] [facility] [id number] [place] [address]- 2707 Oct, 2014 [facility] [place] [facility] [address] [facility] [id number] [place] [address]- 9629 Oct, [facility] [place] [facility] [address] [id number] [place] [address]- 9518 Oct, [facility] [place] [facility] [address] [id number] [place] [address]- 1973 Oct, [facility] [place] [facility] [address] [id number] [place] [address]- 2048 Oct, [facility] [place] [facility] [address] [id number] [place] [address]- 1787 Sep, [facility] [place] [facility] [address] [id number] [place] [address]- 1340 Sep, [facility] [place] [facility] [address] [id number] [place] [address]- 8413 Sep, [facility] [place] [facility] [address] [id number] [place] [address]- 0858 Sep, [facility] [place] [facility] [address] [id number] [place] [address]- 3948 Sep, [facility] [place] [facility] [address] [id number] [place] [address]- 4580 Sep, [facility] [place] [facility] [address] [id number] [place] [address]- 5677 Sep, [facility] [place] [facility] [address] [id number] [place] [address]- 2948 Sep, [facility] [place] [facility] [address] [id number] [place] [address]- 4886 Aug, [facility] [place] [facility] [address] [id number] [place] [address]- 0644 Aug, [facility] [place] [facility] [address] [id number] [place] [address]- 5125 Aug, [facility] [place] [facility] [address] [id number] [place] [address]- 5026 Aug, [facility] [place] [facility] [address] [id number] [place] [address]- 8644 Aug, [facility] [address] [id number] [place] 1913 Aug, [facility] [place] [facility] [address] [id number] [place] 2611 Aug, [facility] [address] [id number] [place] [address]- 0194 Aug, [facility] [address] [id number] [place] 7259 Aug, [facility] [address] [id number] [place] 2495 Aug, [facility] [address] [id number] [place]- 4945 Aug, [facility] [address] [id number] [place] [address]- 5994 Aug, [facility] [address] [id number] [place] [address]- 0160 Aug, [facility] [address] [id number] [place] [address]- 8717 Aug, [facility] [address] [id number] [place] [id number] Aug, [facility] [place] [facility] [address] [id number] [place] [address]- 0810 Aug, [facility] [place] [facility] [address] [id number] [place] [address]- 1482 Jul, [facility] [place] [facility] [address] [id number] [place] [address]- 3560 Jul, [facility] [place] [facility] [address] [id number] [place] [address]- 0365 Jul, [facility] [place] [facility] [address] [id number] [place] [address]- 7350 Jul, [facility] [place] [facility] [address] [id number] [place] [address]- 6221 Jul, [facility] [place] [facility] [address] [id number] [place] [address]- 3768 Jul, [facility] [place] [facility] [address] [id number] [place] [address]- 2263 Jun, [facility] [place] [facility] [address] [id number] [place] [address]- 7012 Jun, [facility] [place] [facility] [address] [id number] [place] [address]- 4976 Jun, [facility] [place] [facility] [address] [id number] [place] [address]- 4181 Jun, [facility] [place] [facility] [address] [id number] [place] [address]- 1298 Jun, [facility] [place] [facility] [address] [id number] [place] [address]- 1704 Jun, [facility] [place] [facility] [address] [id number] [place] [address]- 9109 Jun, [facility] [place] [facility] [address] [id number] [place] [address]- 1604 Jun, [facility] [place] [facility] [address] [id number] [place] [address]- 5062 Jun, [facility] [place] [facility] [address] [id number], [place] [address]- 0974 Jun, [facility] [place] [facility] [address] [id number] [place] [address]- 1505 Jun, [facility] [place] [facility] [address] [id number] [place] [address]- 2378 Jun, [facility] [place] [facility] [address] [id number] [place] 4442 Jun, [facility] [place] [facility] [address] [id number], [place] [address]- 2386 Jun, 2013 [facility] [place] [facility] [address] [id number] [place] [address]- 9543 Jun, 2013 [facility] [place] [facility] [address] [id number] [place] [address]- 3427 Jun, 2013 [facility] [place] [facility] [address] [id number] [place] [address]- 2772 Jun, 2013 [facility] [place] [facility] [address] [id number] [place] [address]- 8075 Jun, 2013 [facility] [place] [facility] [address] [id number] [place] [address]- 1566 Jun, 2013 [facility] [place] [facility] [address] [id number] [place] [address]- 2197 Jun, 2013 [facility] [place] [facility] [address] [id number] [place] [address]- 6485 Jun, [facility] [place] [facility] [address] [id number] [place] [address]- 7518 Jun, [facility] [place] [facility] [address] [id number] [place] [address]- 1586 Jun, [facility] [place] [facility] [address] [id number] [place] [address]- 3465 29 May, 2013 [facility] [place] [facility] [address] [id number], [place] [address]- 9799 29 May, 2013 [facility] [place] [facility] [address] [id number], [place] [address]- 6951 26 May, 2013 [facility] [place] [facility] [address] [id number] [place] [address]- 9148 26 May, 2013 [facility] [place] [facility] [address] [id number] [address]- 6789 25 May, 2013 [facility] [place] [facility] [address] [id number] [place] [address]- 4920 25 May, 2013 [facility] [place] [facility] [address] [id number] [place] [address]- 4628 May, [facility] [place] [facility] [address] [id number] [place] [address]- 1725 May, [facility] [place] [facility] [address] [id number] [place] [address]- 5564 Apr, [facility] [place] [facility] [address] [id number] [place] [address]- 4606 Apr, [facility] [place] [facility] [address] [id number] [place] [address]- 2675 Apr, [facility] [place] [facility] [address] [id number] [place] [address] Apr, [facility] [place] [facility] [address] [id number] [place] [address] Apr, [facility] [place] [facility] [address] [id number] [place] [address] Apr, [facility] [place] [facility] [address] [id number] [place] [address] Apr, [facility] [place] [facility] [address] [id number] [place] [address] Apr, [facility] [place] [facility] [address] [id number] [place] [address] Apr, [facility] [place] [facility] [address] [id number] [place] [address] Apr, [facility] [place] [facility] [address] [id number] [place] [address] Apr, [facility] [place] [facility] [address] [id number] [place] [address] Apr, [facility] [place] [facility] [address] [id number] [place] [address] Apr, [facility] [place] [facility] [address] [id number] [place] [address] Apr, [facility] [place] [facility] [address] [id number] [place] [address] Apr, [facility] [place] [facility] [address] [id number] [place] [address] 16[address] Apr, [facility] [place] [facility] [address] [id number] [place] [address] Apr, [facility] [place] [facility] [address] [id number] [place] [address] Apr, [facility] [place] [facility] [address] [id number] [place] [address]- [address]30 Apr, [facility] [place] [facility] [address] [id number] [place] [address] 285[address] Apr, [facility] [place] [facility] [address] [id number] [place] [address] Apr, [facility] [place] [facility] [address] [id number] [place] [address] Apr, [facility] [place] [facility] [address] [id number] [place] [address] Mar, [facility] [place] [facility] [address] [id number] [place] [address] Mar, [facility] [place] [facility] [address] [id number] [place] [address] Mar, [facility] [place] [facility] [address] [id number] [place] [address] Mar, [facility] [place] [facility] [address] [id number] [place] [address]- [address] Mar, [facility] [place] [facility] [address] [id number] [place] [address] Mar, [facility] [place] [facility] [address] [id number] [place] [address]- [address] Mar, [facility] [place] [facility] [address] [id number] [place] [address]- [address] Mar, [facility] [place] [facility] [address] [id number] [place] [address] Feb, [facility] [place] [facility] [address] [id number] [place] [address] Feb, [facility] [place] [facility] [address] [id number] [place] [address] Feb, [facility] [place] [facility] [address] [id number] [place] [address] Feb, [facility] [place] [facility] [address] [id number] [place] [address] Feb, [facility] [place] [facility] [address] [id number] [place] [address] Feb, [facility] [place] [facility] [address] [id number] [place] [address] 2668 Feb, [facility] [place] [facility] [address] [id number] [place] [address] January, [facility] [place] [facility] [address] [id number] [place] [address] January, [facility] [place] [facility] [address] [id number] [place] [address] January, [facility] [place] [facility] [address] [id number] [place] [address] January, [facility] [place] [facility] [address] [id number] [place] [address] Dec, [facility] [place] [facility] [address] [id number] [place] [address] Dec, [facility] [place] [facility] [address] [id number] [place] [address]98 Dec, [facility] [place] [facility] [address] [id number] [place] [address]- [address] Dec, [facility] [place] [facility] [address] [id number] [place] [address] 40[address] Dec, [facility] [place] [facility] [address] [id number] [place] [address]- [address] Dec, [facility] [place] [facility] [address] [id number] [place] [address]- [address] Dec, [facility] [place] [facility] [address] [id number] [place] [address]- [address] Dec, [facility] [place] [facility] [address] [id number] [place] [address]- [address] Dec, [facility] [place] [facility] [address] [id number] [place] [address] Dec, [facility] [place] [facility] [address] [id number] [place] [address]- [address] Nov, [facility] [place] [facility] [address] [id number] [place] [address] Nov, [facility] [place] [facility] [address] [id number] [place] [address] Nov, [facility] [place] [facility] [address] [id number] [place] [address] Nov, [facility] [place] [facility] [address] [id number] [place] [address] Oct, [facility] [place] [facility] [address] [id number] [place] [address] Oct, [facility] [place] [facility] [address] [id number] [place] [address] 18 Oct, 2013 [facility] [place] [facility] [address] [id number] [place] [address] 18 Oct, 2013 [facility] [place] [facility] [address] [id number] [place] [address] Oct, [facility] [place] [facility] [address] [id number], [place] [address] Oct, [facility] [address] [id number] [place] [address] Oct, [facility] [place] [facility] [address] [id number] [place] [address] Oct, [facility] [place] [facility] [address] [facility] [id number] [place] [address] Sep, [facility] [place] [facility] [address] [id number] [place] [address] Sep, [facility] [place] [facility] [address] [id number] [place] [address] Sep, [facility] [place] [facility] [address] [id number] [place] [address] Sep, [facility] [address] [facility] [id number] [place] [address] Aug, [facility] [place] [facility] [address] [facility] [id number] [place] [address] Aug, [facility] [place] [facility] [address] [facility] [id number] [place] [address]- 365[address] Aug, [facility] [place] [facility] [address] [facility] [id number] [place] [address] Aug, [facility] [place] [facility] [address] [facility] [id number] [place] [address] Jul, [facility] [place] [facility] [address] [id number], [place] [address] Jul, [facility] [place] [facility] [address] [id number] [place] [address] Jul, [facility] [place] [facility] [address] [facility] [id number] [place] [address] Jul, [facility] [place] [facility] [address] [facility] [id number], [place] [address] Jun, [facility] [place] [facility] [address] [id number] [place] [address] Jun, [facility] [place] [facility] [address] [id number] [place] [address] 96[address] Jun, [facility] [place] [facility] [address] [id number] [place] [address]- [address] Jun, [facility] [place] [facility] [address] [id number] [place] [address] Jun, [facility] [place] [facility] [address] [id number] [place] [address] 85[address] Jun, [facility] [place] [facility] [address] [id number] [place] [address]- [address] Jun, [facility] [place] [facility] [address] [id number] [place] [address] 44[address] May, [facility] [place] [facility] [address] [id number] [place] [address]- [address] May, [facility] [place] [facility] [address] [id number] [place] [address] 37[address] May, [facility] [place] [facility] [address] [id number] [place] [address]- 2847 Apr, [facility] [place] [facility] [address] [id number] [place] [address]- [address] Apr, [facility] [place] [facility] [address] [id number] [place] [address]- [address]991 Apr, [facility] [place] [facility] [address] [id number] [place] [address]- 4856 Apr, [facility] [place] [facility] [address] [id number] [place] [address]- 43[address] Apr, [facility] [place] [facility] [address] [id number] [place] [address]- [address] Mar, [facility] [place] [facility] [address] [id number] [place] [address]- [address] Mar, [facility] [place] [facility] [address] [id number] [place] [address] 8[address] Mar, [facility] [place] [facility] [address] [id number] [place] [address]- 1220 Mar, [facility] [place] [facility] [address] [id number] [place] [address]- [address] Mar, [facility] [place] [facility] [address] [id number] [place] [address]- 49[address] Mar, [facility] [place] [facility] [address] [id number] [place] [address]- 7848 Feb, [facility] [place] [facility] [address] [id number] [place] [address]- [address]243 Feb, [facility] [place] [facility] [address] [id number] [place] [address]- 0314 Feb, [facility] [place] [facility] [address] [id number] [place] [address]- 4185 Feb, [facility] [place] [facility] [address] [id number] [place] [address]- 6[address] Feb, [facility] [place] [facility] [address] [id number] [place] [address]- 9941 Feb, [facility] [place] [facility] [address] [id number] [place] [address]- 9794 Feb, [facility] [place] [facility] [address] [id number] [place] [address]- 9550 Feb, [facility] [place] [facility] [address] [id number] [place] [address]- 8340 Feb, [facility] [place] [facility] [address] [id number] [place] [address]- 3967 January, [facility] [place] [facility] [address] [id number] [place] [address]- 3690 January, [facility] [place] [facility] [address] [id number] [place] [address]- 7685 January, [facility] [address] [id number] [place] [address]- [address]138 January, [facility] [address] [id number] [place] [address]- 48[address] January, [facility] [address] [id number] [place] [address] 5[address] January, [facility] [address] [id number] [place] [address] 8299 January, [facility] [address] [id number] [place] [address]- 0138 January, [facility] [address] [id number] [place] [address]- [address]32 January, [facility] [address] [id number] [place] [address]- 8946 January, [facility] [address] [id number] [place] [address]- 4399 Dec, [facility] [address] [id number] [place] [address]- 3578 Dec, [facility] [address] [id number] [place] [address]- 6462 Dec, [facility] [address] [id number] [place] [address]- 8642 Dec, [facility] [address] [id number] [place] [address]- 2461 Dec, [facility] [address] [id number] [place] [address]- 0492 Dec, [facility] [address] [id number] [place] [address]- 1306 Nov, [facility] [address] [id number] [place] [address]- 1978 Nov, [facility] [address] [id number], [place] [address] Nov, [facility] [address] [id number], [place] [address] 2556 Oct, [facility] [address] [id number], [place] [address] 9536 Oct, [facility] [id number], [place] [address] Oct, [facility] [address] [id number], [place] [address]20 Oct, [facility] [id number], [place] [address] Oct, [facility] [id number], [place] [address] Jun, IMMUNIZATIONS No Known Immunizations SOCIAL HISTORY Never Assessed REASON FOR VISIT long term PLAN OF CARE VITAL SIGNS Height 71 in 2018-06-19 Weight 185 lbs 2018-06-19 Heart Rate 88 bpm 2018-06-19 Respiratory Rate 16 2018-06-19 BMI 25.80 kg/m2 2018-06-19 Blood pressure systolic 122 mmHg 2018-06-19 Blood pressure diastolic 80 mmHg 2018-06-19 MEDICATIONS Medication Instructions Dosage Frequency Start Date End Date Duration Status Trazodone HCl 150 MG Orally at bedtime 1 tablet at bedtime as needed Apr, Active Neurontin 300 MG Orally Twice a day 1 capsule 12h Jun, 30 day(s ) Active RESULTS No Results PROCEDURES No Known [...]
--- OUTSIDE RECORDS SUMMARY | 2018-11-29 19:18 | XMS REPORT ---
Author Author FRANK MULILNS Organization [facility] Address [address] [place] [address] Care Team Providers Care Staff Midwife Name Role Phone FRANK MULLINS Unavailable PROBLEMS Type Condition ICD9-CM Code WIL40-DI Code Onset Dates Condition Status SNOMED Code Problem Back pain M54.9 Active 800692054 Problem Amphetamine abuse F15.10 Active 34121103 Problem Pain in left shoulder M25.512 Active 52650182 Problem COPD (chronic obstructive pulmonary disease) J44.9 Active 53357459 Problem Anxiety F41.9 Active 88161054 Problem Essential hypertension I10 Active 55103878 Problem Mood disorder F39 Active 70542750 Problem Other chronic pain G89.29 Active 01279736 Problem 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 Active 8986737 Problem Socially inappropriate behavior F99 Active 378167127 Problem Seasonal allergic rhinitis due to other allergic trigger J30.89 Active 554690957 Problem Arthritis M19.90 Active 7993522 ALLERGIES Substance Reaction Event Type Date Status Sulfamethoxazole-Trimethoprim Unknown Drug Allergy Jun, Active ENCOUNTERS Encounter Location Date Diagnosis [facility] [id number] [place] [address] 94078- 8805 Jun, Other chronic pain G89.29 [address] [place] [id number] Jun, Low back pain M54.5 ; Other chronic pain G89.29 and Mood disorder F39 [address] [id number] Jun, Pain in right leg M79.604 ; Pain of left leg M79.605 and Other chronic pain G89.[address] [id number] May, Low back pain M54.5 and Other chronic pain G89.29 [facility] [id number] [place] [address] 39878- 0076 May, Lumbar back pain M54.5 [facility] [id number] [place] [address] 76040- 2766 Apr, Lumbar back pain M54.5 and Mood disorder F39 [facility] [id number] [place] [address] 31349- 8186 Apr, Mood disorder F39 [facility] [address] [id number] Mar, Mood disorder F39 and Lumbosacral pain M54.5 [facility] [address] [place] [id number] Feb, Low back pain M54.5 ; Other chronic pain G89.29 and Seasonal allergic rhinitis due to other allergic trigger J30.89 [facility] [id number] [place] [address] 40399 -0272 Feb, [facility] [id number] [place] [address] 02436- 2258 Nov, [facility] [id number] [place] [address] 63124- 0889 Sep, [facility] [id number] [place] [address] 89033- 7417 Aug, [facility] [id number] [place] [address] 24478- 6466 Aug, [facility] [id number] [place] [address] 76251- 3110 Jul, [facility] [id number] [place] [address] 61585 -1881 Jul, Back pain M54.9 [facility] [id number] [place] [address] 85707- 8385 Jul, [facility] [id number] [place] [address] 43708- 0385 Jun, [facility] [id number] [place] [address] 49410- 8828 Jun, [facility] [id number] [place] [address] 61914- 1561 Jun, Arthritis M19.90 ; Pain in left shoulder M25.512 and Lumbar back pain M54.5 [facility] [id number] [place] [address] 84302- 4707 May, [facility] [address] 14010- 7348 Apr, [facility] [address] 96132- 9359 Apr, [address] 82718- 1055 Apr, Essential hypertension I10 and Arthritis M19.90 [place] [address] 02825- 8957 Apr, [place] [address] 22253- 2368 Mar, [facility] [id number] [place] [address] 35905- 6142 Mar, Lumbar pain M54.5 ; 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 ; Allergic rhinitis, unspecified allergic rhinitis type J30.9 and Hematuria R31.9 [place] [id number] [place] [address] 33021- 8110 Mar, [facility] [id number] [place] [address] 57147 -0359 January, Open bite, right lower leg, initial encounter S81.851A and Pain in left shoulder M25.512 [facility] [address] [address]63 -9201 Dec, [facility] [id number] [place] [address] 34331 -5949 Dec, Low back pain M54.5 [place] [address] [place] [address]- 9624 Aug, [facility] [id number] [place] [address] 98619 -2734 Apr, Perforated left tympanic membrane on examination H72.92 and Deafness in left ear H91.92 [facility] [id number] [place] [address] 62382- 8401 Apr, [facility] [address] 53915- 5071 Mar, Lumbar back pain M54.5 ; Essential hypertension I10 ; Chronic obstructive pulmonary disease, unspecified COPD type J44.9 ; Anxiety F41.9 ; Long-term use of high-risk medication Z79.899 and Socially inappropriate behavior F99 [facility] [id number] [place] [address] 35071- 7110 Mar, [facility] [address] 74033- 7385 Mar, Low back pain M54.5 [facility] [id number] [place] [address] 35330- 0719 Mar, [facility] [id number] [place] [address] 71598- 0128 Mar, [facility] [id number] [place] [address] 61028- 6103 Feb, Impingement syndrome, shoulder, left M75.42 and Superior glenoid labrum lesion of left shoulder, subsequent encounter S43.432D [facility] [id number] [place] [address] 01099- 7399 January, [facility] [address] 73380- 0095 January, [facility] [id number] [place] [address] 37373- 6637 January, [facility] [address] 31233- 5893 Dec, Impingement syndrome, shoulder, left M75.42 [facility] [id number] [place] [address] 29602- 0501 Dec, [facility] [id number] [place] [address] 89318- 2563 Nov, [facility] [id number] [place] [address] 34889- 1713 Nov, Essential hypertension I10 ; Pain in left shoulder M25.512 ; Amphetamine abuse F15.10 and Callus of foot L84 [place] [id number] [place] [address] 42576- 5773 Nov, Shoulder pain, left M25.512 [place] [id number] [place] [address] 38477- 8384 Nov, [facility] [address] 99690- 5834 Nov, [facility] [id number] [place] [address] 43278- 0008 Nov, Allergic rhinitis, unspecified allergic rhinitis type J30.9 ; Right wrist pain M25.531 ; Back pain M54.9 and Essential hypertension I10 [place] [id number] [place] [address] 96261- 3964 Nov, [facility] [id number] [place] [address] 18667- 6698 Oct, [facility] [id number] [place] [address] 77402- 4381 Oct, Tobacco abuse Z72.0 ; Lumbar back pain M54.5 and Foot callus L84 [facility] [id number] [place] [address] 12330- 0035 Sep, [facility] [id number] [place] [address] 33148- 6417 Sep, Lumbar pain M54.5 ; Essential hypertension I10 ; COPD ( chronic obstructive pulmonary disease) J44.9 ; Anxiety F41.9 and Allergic rhinitis, unspecified allergic rhinitis type J30.9 [place] [address] 18057- 3414 Aug, [place] [address] 87004- 6608 Aug, [place] [address] 07459- 8030 Jul, [place] [address] 64614- 7829 Jul, Lumbar back pain M54.5 ; Essential hypertension I10 ; COPD ( chronic obstructive pulmonary disease) J44.9 ; Anxiety F41.9 and Allergic rhinitis J30.9 [place] [address] 36526- 5233 Apr, Positive urine drug screen 796.0 and Chronic lumbar pain 724.2 [place] [address] 20859- 3902 Apr, [place] [address] 75976- 7421 Apr, [place] [id number] [place] [address] 96041- 7201 Apr, [place] [address] 80661- 2813 Apr, Lumbago 724.2 ; Unspecified viral hepatitis C without hepatic coma 070.70 ; Unspecified disorder of skin and subcutaneous tissue 709.9 and Long-term use of high-risk medication V58.69 [place] [id number] [place] [address] 35266- 9726 Mar, Vision changes 368.9 ; Allergic rhinitis 477.9 and Callus of foot 700 [place] [address] 10149- 3776 Mar, [facility] [address] [place] [address] 98090- 3400 Mar, Chronic airway obstruction, not elsewhere classified 496 ; Essential hypertension, benign 401.1 ; Lumbago 724.2 ; Insomnia, unspecified 780.52 ; Anxiety state, unspecified 300.00 and Unspecified disorder of skin and subcutaneous tissue 709.9 [facility] [id number] [place] [address] [id number] Mar, Dental examination V72.2 [facility] [id number] [place] [address] 48348- 2752 Mar, [facility] [id number] [place] [address] 91315- 3485 Feb, Amphetamine and other psychostimulant dependence, unspecified abuse 304.40 [facility] [id number] [place] [address] 79354- 2873 Feb, Chronic airway obstruction, not elsewhere classified 496 ; Back pain 724.5 and Hypertension 401.9 [facility] [id number] [place] [address] 63026- 1150 January, Chronic airway obstruction, not elsewhere classified 496 ; Unspecified disorder of skin and subcutaneous tissue 709.9 ; Lumbago 724.2 ; Essential hypertension, benign 401.1 ; Foot callus 700 and Allergic rhinitis 477.9 [facility] [id number] [place] [address] 92573- 2142 January, [facility] [id number] [place] [address] 75531- 6802 January, [facility] [id number] [place] [address] 42929- 5949 Dec, [facility] [id number] [place] [address] 42889- 2717 Dec, [facility] [id number] [place] [address] 06055- 3286 Nov, [facility] [place] [facility] [address] [id number] [place] [address]- 1099 Nov, [facility] [place] [facility] [address] [id number] [place] [address]- 0848 Nov, [facility] [place] [facility] [address] [id number] [place] [address]- 9024 Nov, [facility] [place] [facility] [address] [id number] [place] [address]- 6515 Nov, [facility] [place] [facility] [address] [id number] [place] [address]- 4467 Nov, [facility] [place] [facility] [address] [id number] [place] [address]- 1371 Nov, [facility] [place] [facility] [address] [id number] [place] [address]- 2561 Nov, [facility] [place] [facility] [address] [id number] [place] [address]- 6011 Nov, [facility] [place] [facility] [address] [id number] [place] [address]- 1076 Oct, 2014 [facility] [place] [facility] [address] [id number] [place] [address]- 1669 Oct, 2014 [facility] [place] [facility] [address] [id number] [place] [address]- 5706 Oct, 2014 [facility] [place] [facility] [address] [id number] [place] [address]- 1846 Oct, 2014 [facility] [place] [facility] [address] [id number] [place] [address]- 6289 Oct, 2014 [facility] [place] [facility] [address] [id number] [place] [address]- 9966 Oct, 2014 [facility] [place] [facility] [address] [id number] [place] [address]- 3396 Oct, 2014 [facility] [place] [facility] [address] [id number] [place] [address]- 7484 04 Oct, 2014 [facility] [place] [facility] [address] [id number] [place] [address]- 7276 Oct, 2014 [facility] [place] [facility] [address] [id number] [place] [address]- 9086 Oct, 2014 [facility] [place] [facility] [address] [id number] [place] [address]- 2496 Oct, 2014 [facility] [place] [facility] [address] [id number] [place] [address]- 6379 Oct, 2014 [facility] [place] [facility] [address] [id number] [place] [address]- 6254 Oct, [facility] [place] [facility] [address] [id number] [place] [address]- 1246 Sep, [facility] [place] [facility] [address] [id number] [place] [address]- 6950 Sep, [facility] [place] [facility] [address] [id number] [place] [address]- 4092 Sep, [facility] [place] [facility] [address] [id number] [place] [address]- 0763 Sep, [facility] [place] [facility] [address] [facility] [id number] [place] [address]- 3014 Sep, [facility] [place] [facility] [address] [id number] [place] [address]- 2886 Sep, [facility] [place] [facility] [address] [id number] [place] [address]- 3509 Sep, [facility] [place] [facility] [address] [id number] [place] [address]- 8215 Sep, [facility] [place] [facility] [address] [id number] [place] [address]- 4233 Aug, [facility] [place] [facility] [address] [id number] [place] [address]- 7236 Aug, [facility] [place] [facility] [address] [id number] [place] [address]- 6123 Aug, [facility] [place] [facility] [address] [id number] [place] [address]- 2918 Aug, [facility] [place] [facility] [address] [id number] [place] 0822 Aug, [facility] [place] [facility] [address] [id number] [place] [address]- 8066 Aug, [facility] [place] [facility] [address] [id number] [place] [address]- 3510 Aug, [facility] [place] [facility] [address] [id number] [place] [address]- 0926 Aug, [facility] [place] [facility] [address] [id number] [place] [address]- 1270 Aug, [facility] [place] [facility] [address] [id number] [place] [address]- 4493 Aug, [facility] [place] [facility] [address] [id number] [place] [address]- 7546 Aug, [facility] [place] [facility] [address] [id number] [place] [address]- 0908 Aug, [facility] [place] [facility] [address] [id number] [place] [address]- 4755 Aug, [facility] [place] [facility] [address] [id number] [place] [address]- 8630 Aug, [facility] [place] [facility] [address] [id number] [place] [id number] Aug, [facility] [place] [facility] [address] [id number] [place] [address]- 1954 Aug, [facility] [place] [facility] [address] [id number] [place] 6418 Jul, [facility] [place] [facility] [address] [id number] [place] [address]- 2462 Jul, [facility] [place] [facility] [address] [id number] [place] [address]- 5296 Jul, [facility] [place] [facility] [address] [id number] [place] [address]- 5088 Jul, [facility] [place] [facility] [address] [id number] [place] [address]- 6456 Jul, [facility] [place] [facility] [address] [id number] [place] [address]- 2863 Jul, [facility] [place] [facility] [address] [id number] [place] [address]- 4187 30 Jun, 2014 [facility] [place] [facility] [address] [id number] [place] [address]- 7260 Jun, [facility] [place] [facility] [address] [id number] [place] [address]- 1273 Jun, [facility] [place] [facility] [address] [id number] [place] [address]- 2537 Jun, [facility] [place] [facility] [address] [id number] [place] [address]- 2923 Jun, [facility] [place] [facility] [address] [facility] [id number] [place] [address]- 2249 Jun, [facility] [place] [facility] [address] [id number] [place] [address]- 4468 Jun, [facility] [place] [facility] [address] [id number] [place] [address]- 9935 Jun, [facility] [place] [facility] [address] [id number] [place] [address]- 5061 Jun, [facility] [place] [facility] [address] [id number] [place] [address]- 0546 Jun, [facility] [place] [facility] [address] [facility] [id number] [place] [address]- 8482 Jun, [facility] [place] [facility] [address] [id number] [place] [address]- 0125 Jun, 2013 [facility] [place] [facility] [address] [id number] [place] [address]- 1668 Jun, 2013 [facility] [place] [facility] [address] [id number] [place] 3618 Jun, 2013 [facility] [place] [facility] [address] [id number] [place] [address]- 7083 Jun, 2013 [facility] [place] [facility] [address] [id number] [place] [address]- 9216 Jun, 2013 [facility] [place] [facility] [address] [id number] [place] [address]- 2754 Jun, 2013 [facility] [place] [facility] [address] [id number] [place] [address]- 6219 Jun, 2013 [facility] [place] [facility] [address] [id number] [place] [address]- 0382 Jun, 2013 [facility] [place] [facility] [address] [id number] [place] [address]- 5574 Jun, 2013 [facility] [place] [facility] [address] [id number] [place] [address]- 3233 Jun, 2013 [facility] [place] [facility] [address] [id number] [place] [address]- 6663 Jun, [facility] [place] [facility] [address] [id number] [place] [address]- 7152 Jun, [facility] [place] [facility] [address] [id number] [place] [address]- 3972 May, [facility] [place] [facility] [address] [id number] [place] [address]- 5677 29 May, 2013 [facility] [place] [facility] [address] [id number] [place] [address]- 3282 May, 2013 [facility] [place] [facility] [address] [id number] [place] [address]- 0015 May, [facility] [place] [facility] [address] [id number] [place] [address]- 8915 May, [facility] [place] [facility] [address] [id number] [place] [address]- 0184 May, [facility] [place] [facility] [address] [id number] [place] [address]- 1799 May, [facility] [place] [facility] [address] [id number] [place] [address]- 1543 May, [facility] [place] [facility] [address] [id number] [place] [address]- 2835 Apr, [facility] [place] [facility] [address] [id number] [place] [address]- 6236 Apr, [facility] [place] [facility] [address] [id number] [place] [address]- 0399 Apr, [facility] [place] [facility] [address] [id number] [place] [address]- 4125 Apr, [facility] [place] [facility] [address] [id number] [place] [address]- 6083 Apr, [facility] [place] [facility] [address] [id number] [place] [address]- 9666 Apr, [facility] [place] [facility] [address] [id number] [place] [address]- 5739 Apr, [facility] [place] [facility] [address] [id number] [place] [address]- 6154 Apr, [facility] [place] [facility] [address] [id number] [place] [address]- 0696 Apr, [facility] [place] [facility] [address] [id number] [place] [address]- 2538 Apr, [facility] [place] [facility] [address] [id number] [place] [address]- 4202 Apr, [facility] [place] [facility] [address] [id number] [place] [address]- 1313 Apr, [facility] [place] [facility] [address] [id number] [place] [address]- 3255 Apr, [facility] [place] [facility] [address] [id number] [place] [address]- 9109 Apr, [facility] [place] [facility] [address] [id number] [place] [address]- 0830 Apr, [facility] [place] [facility] [address] [id number] [place] [address]- 4002 Apr, [facility] [place] [facility] [address] [id number] [place] [address]- 7675 Apr, [facility] [place] [facility] [address] [id number] [place] [address]- 9434 Apr, [facility] [place] [facility] [address] [id number] [place] [address] Apr, [facility] [place] [facility] [address] [id number] [place] [address] Apr, [facility] [place] [facility] [address] [id number] [place] [address] Apr, [facility] [place] [facility] [address] [id number] [place] [address] Apr, [facility] [place] [facility] [address] [id number] [place] [address] Mar, [facility] [place] [facility] [address] [id number] [place] [address] Mar, [facility] [place] [facility] [address] [id number] [place] [address] Mar, [facility] [place] [facility] [address] [id number] [place] [address] Mar, [facility] [place] [facility] [address] [id number] [place] [address] Mar, [facility] [place] [facility] [address] [id number] [place] [address] Mar, [facility] [place] [facility] [address] [id number] [place] [address] Mar, [facility] [place] [facility] [address] [id number] [place] [address] Mar, [facility] [place] [facility] [address] [id number] [place] [address] Feb, [facility] [place] [facility] [address] [id number] [place] [address] Feb, [facility] [place] [facility] [address] [id number] [place] [address] Feb, [facility] [place] [facility] [address] [id number] [place] [address] Feb, [facility] [place] [facility] [address] [id number] [place] [address] Feb, [facility] [place] [facility] [address] [id number] [place] [address] Feb, [facility] [place] [facility] [address] [id number] [place] [address] Feb, [facility] [place] [facility] [address] [id number] [place] [address] January, [facility] [place] [facility] [address] [id number] [place] [address] January, [facility] [place] [facility] [address] [id number] [place] [address] January, [facility] [place] [facility] [address] [id number] [place] [address] January, [facility] [place] [facility] [address] [id number] [place] [address] Dec, [facility] [place] [facility] [address] [id number] [place] [address] Dec, [facility] [address] [id number] [place] [address] Dec, [facility] [place] [facility] [address] [id number] [place] [address] Dec, [facility] [place] [facility] [address] [id number] [place] [address] Dec, [facility] [place] [facility] [address] [id number] [place] [address] Dec, [facility] [place] [facility] [address] [id number] [place] [address] Dec, [facility] [place] [facility] [address] [id number] [place] [address] Dec, [facility] [place] [facility] [address] [id number] [place] [address] Dec, [facility] [place] [facility] [address] [id number] [place] [address] Dec, [facility] [place] [facility] [address] [id number] [place] [address] Nov, [facility] [place] [facility] [address] [id number] [place] [address] Nov, [facility] [place] [facility] [address] [id number] [place] [address] Nov, [facility] [place] [facility] [address] [id number] [place] [address] Nov, [facility] [place] [facility] [address] [id number] [place] [address] Oct, [facility] [place] [facility] [address] [id number] [place] [address] Oct, [facility] [place] [facility] [address] [id number] [place] [address] 18 Oct, 2013 [facility] [place] [facility] [address] [id number] [place] [address] 18 Oct, 2013 [facility] [place] [facility] [address] [id number] [place] [id number] Oct, [facility] [place] [facility] [address] [id number] [place] [address] Oct, [facility] [place] [facility] [address] [id number] [place] [address] Oct, [facility] [place] [facility] [address] [id number] [place] [address] Oct, [facility] [place] [facility] [address] [id number] [place] [address] Sep, [facility] [place] [facility] [address] [id number] [place] [address] Sep, [facility] [place] [facility] [address] [id number] [place] [address] Sep, [facility] [place] [facility] [address] [id number] [place] [address] Sep, [facility] [place] [facility] [address] [id number] [place] [address] Aug, [facility] [place] [facility] [address] [facility] [id number], [place] [address] Aug, [facility] [place] [facility] [address] [id number], [place] [address] Aug, [facility] [place] [facility] [address] [id number] [place] [address] Aug, [facility] [place] [facility] [address] [id number] [place] [address] Jul, [facility] [place] [facility] [address] [id number], [place] [address] Jul, [facility] [place] [facility] [address] [id number], [place] [address] Jul, [facility] [place] [facility] [address] [id number] [place] [address] Jul, [facility] [place] [facility] [address] [id number] [place] [address] Jun, [facility] [place] [facility] [address] [id number] [place] [address] Jun, [facility] [place] [facility] [address] [id number] [place] [address] Jun, [facility] [place] [facility] [address] [id number] [place] [address]- [address] 14 Jun, 2013 [facility] [place] [facility] [address] [id number] [place] [address] Jun, [facility] [place] [facility] [address] [id number] [place] [address]- [address] Jun, [facility] [place] [facility] [address] [id number] [place] [address] Jun, [facility] [place] [facility] [address] [id number] [place] [address] May, [facility] [place] [facility] [address] [id number] [place] [address] May, [facility] [place] [facility] [address] [id number] [place] [address] May, [facility] [place] [facility] [address] [id number] [place] [address] Apr, [facility] [place] [facility] [address] [id number] [place] [address]- [address] Apr, [facility] [place] [facility] [address] [id number] [place] [address]- [address] Apr, [facility] [place] [facility] [address] [id number] [place] [address] 1484 Apr, [facility] [place] [facility] [address] [id number] [place] [address] Apr, [facility] [place] [facility] [address] [id number] [place] [address] Mar, [facility] [place] [facility] [address] [id number] [place] [address] Mar, [facility] [place] [facility] [address] [id number] [place] [address]- [address] Mar, [facility] [place] [facility] [address] [id number] [place] [address]- [address] Mar, [facility] [place] [facility] [address] [id number] [place] [address] Mar, [facility] [place] [facility] [address] [id number] [place] [address]- 7935 Mar, [facility] [place] [facility] [address] [id number] [place] [address] Feb, [facility] [place] [facility] [address] [id number] [place] [address]36 Feb, [facility] [place] [facility] [address] [id number] [place] [address]- 9340 Feb, [facility] [place] [facility] [address] [id number] [place] [address] Feb, [facility] [place] [facility] [address] [id number] [place] [address]- 2814 Feb, [facility] [place] [facility] [address] [id number] [place] [address] Feb, [facility] [place] [facility] [address] [id number] [place] [address]- [address]127 Feb, [facility] [place] [facility] [address] [id number] [place] [address]- 1166 Feb, [facility] [place] [facility] [address] [id number] [place] [address]- [address] Feb, [facility] [address] [id number] [place] [address] January, [facility] [address] [id number] [place] [address] January, [facility] [address] [id number] [place] [address]- 379[address] January, [facility] [address] [id number] [place] [address]- 89[address] January, [facility] [address] [id number] [place] [address]- 4191 January, [facility] [address] [id number] [place] [address]389 January, [facility] [address] [id number] [place] [address] January, [facility] [address] [id number] [place] [address] January, [facility] [address] [id number] [place] [address]- 5[address] January, [facility] [address] [id number] [place] [address] 4223 January, [facility] [address] [id number] [place] [address]- 8702 Dec, [facility] [place] [facility] [address] [id number] [place] [address]- 9010 Dec, [facility] [place] [facility] [address] [id number] [place] [address]- 6423 Dec, [facility] [place] [facility] [address] [id number] [place] [address]- 5190 Dec, [facility] [place] [facility] [address] [id number] [place] [address]- 7064 Dec, [facility] [place] [facility] [address] [id number], [place] [address] Dec, [facility] [id number], [place] [address] Nov, [facility] [id number], [place] [address] Nov, [facility] [id number], [place] [address] Nov, [facility] [id number], [place] [address] 2546 Oct, [facility] [id number] [place] [address] Oct, [facility] [id number] [place] [address]- 2546 Oct, [facility] [id number] [place] [address] 2546 Oct, [facility] [address], [place] [address] Oct, [facility] [address], [place] [address] Jun, IMMUNIZATIONS No Known Immunizations SOCIAL HISTORY Never Assessed REASON FOR VISIT HALF-WAY PLAN OF CARE VITAL SIGNS MEDICATIONS Medication Instructions Dosage Frequency Start Date End Date Duration Status PredniSONE 20 mg Orally Once a day 2 tablets 24h Feb, Jun, 5 days Active RESULTS No Results PROCEDURES No Known [...]
--- OUTSIDE RECORDS SUMMARY | 2018-11-29 19:19 | XMS REPORT ---
Author Author FRANK MULLINS Organization [facility] Address [address] [place] [address] Care Team Providers Care Public Relations Intern Name Role Phone FRANK MULLINS Unavailable PROBLEMS Type Condition ICD9-CM Code FDY52-PM Code Onset Dates Condition Status SNOMED Code Problem Back pain M54.9 Active 612791332 Problem Amphetamine abuse F15.10 Active 86971639 Problem Pain in left shoulder M25.512 Active 26967000 Problem COPD (chronic obstructive pulmonary disease) J44.9 Active 70329430 Problem Anxiety F41.9 Active 08032474 Problem Essential hypertension I10 Active 70513525 Problem Mood disorder F39 Active 67713098 Problem Other chronic pain G89.29 Active 20949473 Problem 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 Active 3974682 Problem Socially inappropriate behavior F99 Active 474138200 Problem Seasonal allergic rhinitis due to other allergic trigger J30.89 Active 183783163 Problem Arthritis M19.90 Active 9629532 ALLERGIES Substance Reaction Event Type Date Status Sulfamethoxazole-Trimethoprim Unknown Drug Allergy May, Active ENCOUNTERS Encounter Location Date Diagnosis [address] [id number] Jun, Pain in right leg M79.604 ; Pain of left leg M79.605 and Other chronic pain G89.29 [address] [place] [id number] May, Low back pain M54.5 and Other chronic pain G89.29 [facility] [address] [facility] [id number] [address] May, Lumbar back pain M54.5 [facility] [address] [facility] [id number], [place] [address] Apr, Lumbar back pain M54.5 and Mood disorder F39 [facility] [address] [facility] [id number], [place] [address] Apr, Mood disorder F39 [facility] [address] [place] [id number] Mar, Mood disorder F39 and Lumbosacral pain M54.5 [facility] [address] [place] [id number] Feb, Low back pain M54.5 ; Other chronic pain G89.29 and Seasonal allergic rhinitis due to other allergic trigger J30.89 [facility] [id number] [place] [address]40 [address]361 Feb, [facility] [id number] [place] [address] 13894- 8623 Nov, [facility] [address] [address]- [address] Sep, [facility] [id number] [place] [address] 51198- 3520 Aug, [facility] [id number] [place] [address] 23970- 6286 Aug, [facility] [id number] [place] [address] 13178- 3579 Jul, [facility] [id number] [place] [address] 48396 -8260 Jul, Back pain M54.9 [facility] [id number] [place] [address] 95734- 5482 Jul, [facility] [id number] [place] [address] 41923- 6849 Jun, [facility] [id number] [place] [address] 64900- 0061 Jun, [facility] [id number] [place] [address] 74497- 4308 Jun, Arthritis M19.90 ; Pain in left shoulder M25.512 and Lumbar back pain M54.5 [facility] [id number] [place] [address] 37792- 1361 May, [facility] [id number] [place] [address] 57088- 9307 Apr, [place] [id number] [place] [address] 89186- 7210 Apr, [place] [id number] [place] [address] 62620- 2699 Apr, Essential hypertension I10 and Arthritis M19.90 [place] [address] 41868- 8328 Apr, [place] [id number] [place] [address] 85720- 9266 Mar, [place] [id number] [place] [address] 27295- 6867 Mar, Lumbar pain M54.5 ; 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 ; Allergic rhinitis, unspecified allergic rhinitis type J30.9 and Hematuria R31.9 [place] [id number] [place] [address] 04200- 9580 Mar, [facility] [place] [id number] [place] [address] 58202 -0309 January, Open bite, right lower leg, initial encounter S81.851A and Pain in left shoulder M25.512 [facility] [place] [id number] [place] [address] 30468 -9362 Dec, [facility] [id number] [place] [address] 36362 -3856 Dec, Low back pain M54.5 [place] [id number] [place] [address] 26504- 5443 Aug, [facility] [id number] [place] [address] 81111 -9074 Apr, Perforated left tympanic membrane on examination H72.92 and Deafness in left ear H91.92 [place] [address] [place] [address] Apr, [facility] [id number] [place] [address] 29926- 8057 Mar, Lumbar back pain M54.5 ; Essential hypertension I10 ; Chronic obstructive pulmonary disease, unspecified COPD type J44.9 ; Anxiety F41.9 ; Long-term use of high-risk medication Z79.899 and Socially inappropriate behavior F99 [facility] [id number] [place] [address] 93342- 8780 Mar, [facility] [id number] [place] [address] 47295- 0596 Mar, Low back pain M54.5 [facility] [id number] [place] [address] 58323- 8337 Mar, [place] [id number] [place] [address] 49130- 7558 Mar, [facility] [id number] [place] [address] 23680- 6806 Feb, Impingement syndrome, shoulder, left M75.42 and Superior glenoid labrum lesion of left shoulder, subsequent encounter S43.432D [facility] [address] [id number], [place] [address] January, [place] [id number] [place] [address] 42269- 2131 January, [facility] [id number] [place] [address] 44020- 9906 January, [facility] [id number] [place] [address] 98771- 8879 Dec, Impingement syndrome, shoulder, left M75.42 [facility] [address] [place] [address] 38735- 3057 Dec, [facility] [id number] [place] [address] 32734- 2492 30 Nov, 2015 [facility] [address] [place] [address] 78572- 1224 Nov, Essential hypertension I10 ; Pain in left shoulder M25.512 ; Amphetamine abuse F15.10 and Callus of foot L84 [facility] [id number] [place] [address] 02429- 7475 Nov, Shoulder pain, left M25.512 [place] [id number] [place] [address] 99174- 9812 14 Nov, 2015 [place] [id number] [place] [address] 66768- 4956 Nov, [place] [id number] [place] [address] 15631- 2599 Nov, Allergic rhinitis, unspecified allergic rhinitis type J30.9 ; Right wrist pain M25.531 ; Back pain M54.9 and Essential hypertension I10 [place] [id number] [place] [address] 10582- 6511 Nov, [place] [id number] [place] [address] 76108- 2225 Oct, [place] [id number] [place] [address] 84695- 2403 Oct, Tobacco abuse Z72.0 ; Lumbar back pain M54.5 and Foot callus L84 [place] [id number] [place] [address] 93294- 9553 Sep, [place] [id number] [place] [address] 49156- 7838 Sep, Lumbar pain M54.5 ; Essential hypertension I10 ; COPD ( chronic obstructive pulmonary disease) J44.9 ; Anxiety F41.9 and Allergic rhinitis, unspecified allergic rhinitis type J30.9 [facility] [id number] [place] [address] 86534- 2896 Aug, [place] [address] [place] [id number] [place] [address] 16444- 5862 Aug, [place] [address] 08397- 2739 Jul, [place] [id number] [place] [address] 46388- 0792 Jul, Lumbar back pain M54.5 ; Essential hypertension I10 ; COPD ( chronic obstructive pulmonary disease) J44.9 ; Anxiety F41.9 and Allergic rhinitis J30.9 [place] [id number] [place] [address] 17329- 1911 Apr, Positive urine drug screen 796.0 and Chronic lumbar pain 724.[address] [address]21- 8950 Apr, [address] 31999- 6287 Apr, [place] [id number] [place] [address] 87582- 1063 Apr, [place] [id number] [place] [address] 65879- 0371 Apr, Lumbago 724.2 ; Unspecified viral hepatitis C without hepatic coma 070.70 ; Unspecified disorder of skin and subcutaneous tissue 709.9 and Long-term use of high-risk medication V58.69 [place] [id number] [place] [address] 71989- 2225 Mar, Vision changes 368.9 ; Allergic rhinitis 477.9 and Callus of foot [id number] [place] [address] 14867- 6777 Mar, [place] [id number] [place] [address] 04788- 7026 Mar, Chronic airway obstruction, not elsewhere classified 496 ; Essential hypertension, benign 401.1 ; Lumbago 724.2 ; Insomnia, unspecified 780.52 ; Anxiety state, unspecified 300.00 and Unspecified disorder of skin and subcutaneous tissue 709.9 [facility] [address] [id number] [address] Mar, Dental examination V72.2 [facility] [address] [place] [address] 02185- 6190 Mar, [facility] [id number] [place] [address] 85541- 0628 Feb, Amphetamine and other psychostimulant dependence, unspecified abuse 304.40 [facility] [id number] [place] [address] 38376- 9363 Feb, Chronic airway obstruction, not elsewhere classified 496 ; Back pain 724.5 and Hypertension 401.9 [facility] [id number] [place] [address] 43376- 6799 January, Chronic airway obstruction, not elsewhere classified 496 ; Unspecified disorder of skin and subcutaneous tissue 709.9 ; Lumbago 724.2 ; Essential hypertension, benign 401.1 ; Foot callus 700 and Allergic rhinitis 477.9 [facility] [address] [place] [address] 38371- 6876 January, [facility] [id number] [place] [address] 75530- 6962 January, [facility] [address] [place] [address] 43324- 9674 Dec, [facility] [id number] [place] [address] 56343- 8468 Dec, [facility] [address] [address]- 8147 Nov, [facility] [id number] [place] [address] 80864- 0802 Nov, [facility] [address] [place] [address] 73038- 2087 Nov, [facility] [id number] [address]- 4305 Nov, 2014 [facility] [place] [facility] [address] [id number] [place] [address]- 7829 Nov, 2014 [facility] [place] [facility] [address] [id number] [place] [address]- 8417 Nov, 2014 [facility] [place] [facility] [address] [id number] [place] [address]- 7042 16 Nov, 2014 [facility] [place] [facility] [address] [id number] [place] [address]- 3929 Nov, 2014 [facility] [place] [facility] [address] [id number] [place] [address]- 9993 Nov, 2014 [facility] [place] [facility] [address] [id number] [place] [address]- 6860 Oct, 2014 [facility] [place] [facility] [address] [id number] [place] [address]- 2257 Oct, 2014 [facility] [place] [facility] [address] [id number] [place] [address]- 6973 Oct, 2014 [facility] [place] [facility] [address] [id number] [place] [address]- 6817 Oct, 2014 [facility] [place] [facility] [address] [facility] [id number] [place] [address]- 1503 Oct, 2014 [facility] [place] [facility] [address] [id number] [place] [address]- 6535 Oct, 2014 [facility] [place] [facility] [address] [id number] [place] [address]- 9090 Oct, 2014 [facility] [place] [facility] [address] [id number] [place] [address]- 5686 Oct, 2014 [facility] [place] [facility] [address] [facility] [id number] [place] [address]- 4302 Oct, 2014 [facility] [place] [facility] [address] [facility] [id number] [place] [address]- 0381 Oct, [facility] [place] [facility] [address] [id number] [place] [address]- 6529 Oct, [facility] [place] [facility] [address] [id number] [place] [address]- 1751 Oct, [facility] [place] [facility] [address] [id number] [place] [address]- 6989 Oct, [facility] [place] [facility] [address] [id number] [place] [address]- 9076 Sep, [facility] [place] [facility] [address] [id number] [place] [address]- 3628 Sep, [facility] [place] [facility] [address] [id number] [place] [address]- 6733 Sep, [facility] [place] [facility] [address] [id number] [place] [address]- 6656 Sep, [facility] [place] [facility] [address] [id number] [place] [address]- 4017 Sep, [facility] [place] [facility] [address] [id number] [place] [address]- 5797 Sep, [facility] [place] [facility] [address] [id number] [place] [address]- 2818 Sep, [facility] [place] [facility] [address] [id number] [place] [address]- 7520 Sep, [facility] [place] [facility] [address] [id number] [place] [address]- 9410 Aug, [facility] [place] [facility] [address] [id number] [place] [address]- 6840 Aug, [facility] [place] [facility] [address] [id number] [place] [address]- 1776 Aug, [facility] [place] [facility] [address] [id number] [place] [address]- 4626 Aug, [facility] [place] [facility] [address] [id number] [place] [address]- 2427 Aug, [facility] [address] [id number] [place] 8731 Aug, [facility] [place] [facility] [address] [id number] [place] 4498 Aug, [facility] [address] [id number] [place] [address]- 1895 Aug, [facility] [address] [id number] [place] 1496 Aug, [facility] [address] [id number] [place] 4623 Aug, [facility] [address] [id number] [place] 6715 Aug, [facility] [address] [id number] [place] [address]- 5064 Aug, [facility] [address] [id number] [place] [address]- 0019 Aug, [facility] [address] [id number] [place] [address]- 1728 Aug, [facility] [address] [id number] [place] [id number] Aug, [facility] [place] [facility] [address] [id number] [place] [address]- 9053 Aug, [facility] [place] [facility] [address] [id number] [place] [address]- 4194 Jul, [facility] [place] [facility] [address] [id number] [place] [address]- 1549 Jul, [facility] [place] [facility] [address] [id number] [place] [address]- 1896 Jul, [facility] [place] [facility] [address] [id number] [place] [address]- 3253 Jul, [facility] [place] [facility] [address] [id number] [place] [address]- 9268 Jul, [facility] [place] [facility] [address] [id number] [place] [address]- 0114 Jul, [facility] [place] [facility] [address] [id number] [place] [address]- 3786 Jun, [facility] [place] [facility] [address] [id number] [place] [address]- 6324 Jun, [facility] [place] [facility] [address] [id number] [place] [address]- 4449 Jun, [facility] [place] [facility] [address] [id number] [place] [address]- 1493 Jun, [facility] [place] [facility] [address] [id number] [place] [address]- 7601 Jun, [facility] [place] [facility] [address] [id number] [place] [address]- 4406 Jun, [facility] [place] [facility] [address] [id number] [place] [address]- 6465 Jun, [facility] [place] [facility] [address] [id number] [place] [address]- 5246 Jun, [facility] [place] [facility] [address] [id number] [place] [address]- 0617 Jun, [facility] [place] [facility] [address] [id number], [place] [address]- 5157 Jun, [facility] [place] [facility] [address] [id number] [place] [address]- 9512 Jun, [facility] [place] [facility] [address] [id number] [place] [address]- 3227 Jun, [facility] [place] [facility] [address] [id number] [place] 1420 Jun, [facility] [place] [facility] [address] [id number], [place] [address]- 9841 Jun, 2013 [facility] [place] [facility] [address] [id number] [place] [address]- 6058 Jun, 2013 [facility] [place] [facility] [address] [id number] [place] [address]- 1027 Jun, 2013 [facility] [place] [facility] [address] [id number] [place] [address]- 4140 Jun, 2013 [facility] [place] [facility] [address] [id number] [place] [address]- 7287 Jun, 2013 [facility] [place] [facility] [address] [id number] [place] [address]- 1544 Jun, 2013 [facility] [place] [facility] [address] [id number] [place] [address]- 9734 Jun, 2013 [facility] [place] [facility] [address] [id number] [place] [address]- 6167 Jun, [facility] [place] [facility] [address] [id number] [place] [address]- 3177 Jun, [facility] [place] [facility] [address] [id number] [place] [address]- 8842 Jun, [facility] [place] [facility] [address] [id number] [place] [address]- 4232 29 May, 2013 [facility] [place] [facility] [address] [id number], [place] [address]- 7101 29 May, 2013 [facility] [place] [facility] [address] [id number], [place] [address]- 8718 26 May, 2013 [facility] [place] [facility] [address] [id number] [place] [address]- 3358 26 May, 2013 [facility] [place] [facility] [address] [id number], [place] [address]- 9589 25 May, 2013 [facility] [place] [facility] [address] [id number] [place] [address]- 9492 25 May, 2013 [facility] [place] [facility] [address] [id number] [place] [address]- 1364 May, [facility] [place] [facility] [address] [id number] [place] [address]- 0363 May, [facility] [place] [facility] [address] [id number] [place] [address]- 4307 Apr, [facility] [place] [facility] [address] [id number] [place] [address]- 9415 Apr, [facility] [place] [facility] [address] [id number] [place] [address]- 1718 Apr, [facility] [place] [facility] [address] [id number] [place] [address]- 9662 Apr, [facility] [place] [facility] [address] [id number] [place] [address]- 7339 Apr, [facility] [place] [facility] [address] [id number] [place] [address] Apr, [facility] [place] [facility] [address] [id number] [place] [address] Apr, [facility] [place] [facility] [address] [id number] [place] [address] Apr, [facility] [place] [facility] [address] [id number] [place] [address] Apr, [facility] [place] [facility] [address] [id number] [place] [address] Apr, [facility] [place] [facility] [address] [id number] [place] [address] Apr, [facility] [place] [facility] [address] [id number] [place] [address] Apr, [facility] [place] [facility] [address] [id number] [place] [address] Apr, [facility] [place] [facility] [address] [id number] [place] [address] Apr, [facility] [place] [facility] [address] [id number] [place] [address] Apr, [facility] [place] [facility] [address] [id number] [place] [address] Apr, [facility] [place] [facility] [address] [id number] [place] [address] Apr, [facility] [place] [facility] [address] [id number] [place] [address] Apr, [facility] [place] [facility] [address] [id number] [place] [address] Apr, [facility] [place] [facility] [address] [id number] [place] [address] Apr, [facility] [place] [facility] [address] [id number] [place] [address] Apr, [facility] [place] [facility] [address] [id number] [place] [address] Apr, [facility] [place] [facility] [address] [id number] [place] [address] Mar, [facility] [place] [facility] [address] [id number] [place] [address] Mar, [facility] [place] [facility] [address] [id number] [place] [address] Mar, [facility] [place] [facility] [address] [id number] [place] [address] Mar, [facility] [place] [facility] [address] [id number] [place] [address] Mar, [facility] [place] [facility] [address] [id number] [place] [address] Mar, [facility] [place] [facility] [address] [id number] [place] [address]261 Mar, [facility] [place] [facility] [address] [id number] [place] [address] Mar, [facility] [place] [facility] [address] [id number] [place] [address] Feb, [facility] [place] [facility] [address] [id number] [place] [address] Feb, [facility] [place] [facility] [address] [id number] [place] [address] Feb, [facility] [place] [facility] [address] [id number] [place] [address] Feb, [facility] [place] [facility] [address] [id number] [place] [address] Feb, [facility] [place] [facility] [address] [id number] [place] [address] Feb, [facility] [place] [facility] [address] [id number] [place] [address] 89[address] Feb, [facility] [place] [facility] [address] [id number] [place] [address] January, [facility] [place] [facility] [address] [id number] [place] [address] January, [facility] [place] [facility] [address] [id number] [place] [address] 47[address] January, [facility] [place] [facility] [address] [id number] [place] [address] January, [facility] [place] [facility] [address] [id number] [place] [address] Dec, [facility] [place] [facility] [address] [id number] [place] [address] Dec, [facility] [place] [facility] [address] [id number] [place] [address] Dec, [facility] [place] [facility] [address] [id number] [place] [address] Dec, [facility] [place] [facility] [address] [id number] [place] [address] Dec, [facility] [place] [facility] [address] [id number] [place] [address] Dec, [facility] [place] [facility] [address] [id number] [place] [address] Dec, [facility] [place] [facility] [address] [id number] [place] [address] 6[address] Dec, [facility] [place] [facility] [address] [id number] [place] [address] 70[address] Dec, [facility] [place] [facility] [address] [id number] [place] [address] Dec, [facility] [place] [facility] [address] [id number] [place] [address] Nov, [facility] [place] [facility] [address] [id number] [place] [address] Nov, [facility] [place] [facility] [address] [id number] [place] [address] Nov, [facility] [place] [facility] [address] [id number] [place] [address] Nov, [facility] [place] [facility] [address] [id number] [place] [address] Oct, [facility] [place] [facility] [address] [id number] [place] [address] Oct, [facility] [place] [facility] [address] [id number] [place] [address] 18 Oct, 2013 [facility] [place] [facility] [address] [id number] [place] [address] 18 Oct, 2013 [facility] [place] [facility] [address] [id number] [place] [address] Oct, [facility] [place] [facility] [address] [id number], [place] [address] Oct, [facility] [address] [id number] [place] [address] Oct, [facility] [place] [facility] [address] [id number] [place] [address] Oct, [facility] [place] [facility] [address] [facility] [id number] [place] [address] Sep, [facility] [place] [facility] [address] [id number] [place] [address] Sep, [facility] [place] [facility] [address] [id number] [place] [address] Sep, [facility] [place] [facility] [address] [id number] [place] [address] Sep, [facility] [address] [facility] [id number] [place] [address] Aug, [facility] [place] [facility] [address] [facility] [id number] [place] [address] Aug, [facility] [place] [facility] [address] [facility] [id number] [place] [address] Aug, [facility] [place] [facility] [address] [facility] [id number] [place] [address] Aug, [facility] [place] [facility] [address] [facility] [id number] [place] [address] Jul, [facility] [place] [facility] [address] [id number], [place] [address] Jul, [facility] [place] [facility] [address] [id number] [place] [address] Jul, [facility] [place] [facility] [address] [facility] [id number] [place] [address] Jul, [facility] [place] [facility] [address] [facility] [id number], [place] [address] Jun, [facility] [place] [facility] [address] [id number] [place] [address] Jun, [facility] [place] [facility] [address] [id number] [place] [address] Jun, [facility] [place] [facility] [address] [id number] [place] [address] Jun, [facility] [place] [facility] [address] [id number] [place] [address] Jun, [facility] [place] [facility] [address] [id number] [place] [address] Jun, [facility] [place] [facility] [address] [id number] [place] [address] Jun, [facility] [place] [facility] [address] [id number] [place] [address] May, [facility] [place] [facility] [address] [id number] [place] [address] May, [facility] [place] [facility] [address] [id number] [place] [address] May, [facility] [place] [facility] [address] [id number] [place] [address] Apr, [facility] [place] [facility] [address] [id number] [place] [address] Apr, [facility] [place] [facility] [address] [id number] [place] [address] Apr, [facility] [place] [facility] [address] [id number] [place] [address] Apr, [facility] [place] [facility] [address] [id number] [place] [address] Apr, [facility] [place] [facility] [address] [id number] [place] [address] Mar, [facility] [place] [facility] [address] [id number] [place] [address] Mar, [facility] [place] [facility] [address] [id number] [place] [address] Mar, [facility] [place] [facility] [address] [id number] [place] [address] Mar, [facility] [place] [facility] [address] [id number] [place] [address] Mar, [facility] [place] [facility] [address] [id number] [place] [address] Mar, [facility] [place] [facility] [address] [id number] [place] [address] Feb, [facility] [place] [facility] [address] [id number] [place] [address] Feb, [facility] [place] [facility] [address] [id number] [place] [address] Feb, [facility] [place] [facility] [address] [id number] [place] [address] Feb, [facility] [place] [facility] [address] [id number] [place] [address] Feb, [facility] [place] [facility] [address] [id number] [place] [address] Feb, [facility] [place] [facility] [address] [id number] [place] [address] Feb, [facility] [place] [facility] [address] [id number] [place] [address] Feb, [facility] [place] [facility] [address] [id number] [place] [address] Feb, [facility] [place] [facility] [address] [id number] [place] [address] January, [facility] [place] [facility] [address] [id number] [place] [address] January, [facility] [place] [facility] [address] [id number] [place] [address] January, [facility] [address] [id number] [place] [address] January, [facility] [address] [id number] [place] [address] January, [facility] [address] [id number] [place] [address] January, [facility] [address] [id number] [place] [address] January, [facility] [address] [id number] [place] [address] January, [facility] [address] [id number] [place] [address] January, [facility] [address] [id number] [place] [address] January, [facility] [address] [id number] [place] [address] Dec, [facility] [address] [id number] [place] [address] Dec, [facility] [address] [id number] [place] [address] Dec, [facility] [address] [id number] [place] [address] Dec, [facility] [address] [id number] [place] [address] Dec, [facility] [address] [id number] [place] [address] Dec, [facility] [address] [id number] [place] [address] Nov, [facility] [address] [id number] [place] [address] Nov, [facility] [address] [id number], [place] [address] Nov, [facility] [address] [id number], [place] [address] Oct, [facility] [id number], [place] [address] Oct, [facility] [id number], [place] [address] Oct, [facility] [address] [id number], [place] [address] Oct, [facility] [id number], [place] [address] Oct, [facility] [id number], [place] [address] Jun, IMMUNIZATIONS No Known Immunizations SOCIAL HISTORY Never Assessed REASON FOR VISIT detention PLAN OF CARE VITAL SIGNS MEDICATIONS Medication Instructions Dosage Frequency Start Date End Date Duration Status Trazodone HCl 100 MG Orally at bedtime 1 tablet at bedtime as needed Apr, Active Naproxen 500 mg Orally 2 times a day PRN 1 tablet with food or milk as needed May, Active RESULTS No Results PROCEDURES No Known [...]
--- OUTSIDE RECORDS SUMMARY | 2018-11-29 19:19 | XMS REPORT ---
Author Author FRANK MULLINS Organization [facility] Address [address] [place] [address] Care Team Providers Care Regional Operations Director Name Role Phone FRANK MULLINS Unavailable PROBLEMS Type Condition ICD9-CM Code CAU91-MZ Code Onset Dates Condition Status SNOMED Code Problem Back pain M54.9 Active 803525651 Problem Amphetamine abuse F15.10 Active 89020218 Problem Pain in left shoulder M25.512 Active 13306414 Problem COPD (chronic obstructive pulmonary disease) J44.9 Active 45670357 Problem Anxiety F41.9 Active 26968911 Problem Essential hypertension I10 Active 62122262 Problem Mood disorder F39 Active 41737459 Problem Other chronic pain G89.29 Active 14931550 Problem 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 Active 3899006 Problem Socially inappropriate behavior F99 Active 262145887 Problem Seasonal allergic rhinitis due to other allergic trigger J30.89 Active 508928984 Problem Arthritis M19.90 Active 8531655 ALLERGIES Substance Reaction Event Type Date Status Sulfamethoxazole-Trimethoprim Unknown Drug Allergy May, Active ENCOUNTERS Encounter Location Date Diagnosis [address] [id number] May, Low back pain M54.5 and Other chronic pain G89.29 [facility] [address] [facility] [id number] [address] May, Lumbar back pain M54.5 [facility] [address] [facility] [id number], [place] [address] Apr, Lumbar back pain M54.5 and Mood disorder F39 [facility] [address] [facility] [id number], [place] [address] Apr, Mood disorder F39 [address] [place] [place] [id number] Mar, Mood disorder F39 and Lumbosacral pain M54.5 [address] [place] [address] [facility] [place] [id number] Feb, Low back pain M54.5 ; Other chronic pain G89.29 and Seasonal allergic rhinitis due to other allergic trigger J30.89 [facility] [address] [address] Feb, [facility] [id number] [place] [address] 26078- 0531 Nov, [facility] [id number] [place] [address] 96505- 5192 Sep, [facility] [id number] [place] [address] 20683- 3030 Aug, [facility] [id number] [place] [address] 23426- 6090 Aug, [facility] [id number] [place] [address] 91735- 8864 Jul, [facility] [id number] [place] [address] 72549 -7064 Jul, Back pain M54.9 [facility] [id number] [place] [address] 16968- 4631 Jul, [facility] [id number] [place] [address] 59972- 1610 Jun, [facility] [id number] [place] [address] 87251- 9882 Jun, [facility] [id number] [place] [address] 47432- 2513 Jun, Arthritis M19.90 ; Pain in left shoulder M25.512 and Lumbar back pain M54.5 [facility] [address] [id number] [address] May, [facility] [id number] [place] [address] 68048- 4559 Apr, [facility] [id number] [place] [address] 52290- 7779 Apr, [place] [address] [address] Apr, Essential hypertension I10 and Arthritis M19.90 [place] [id number] [place] [address] 65270- 1131 Apr, [place] [address] 15932- 5467 Mar, [place] [address] 60245- 7786 Mar, Lumbar pain M54.5 ; 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 ; Allergic rhinitis, unspecified allergic rhinitis type J30.9 and Hematuria R31.9 [place] [id number] [place] [address] 54006- 7342 Mar, [facility] [address] [address] January, Open bite, right lower leg, initial encounter S81.851A and Pain in left shoulder M25.512 [facility] [id number] [place] [address] 03425 -5409 Dec, [facility] [place] [id number] [place] [address] 44056 -6809 Dec, Low back pain M54.5 [place] [id number] [place] [address] 77802- 5798 Aug, [facility] [id number] [place] [address] 12682 -9895 Apr, Perforated left tympanic membrane on examination H72.92 and Deafness in left ear H91.92 [place] [id number] [place] [address] 92840- 6857 Apr, [place] [address] 33125- 3901 Mar, Lumbar back pain M54.5 ; Essential hypertension I10 ; Chronic obstructive pulmonary disease, unspecified COPD type J44.9 ; Anxiety F41.9 ; Long-term use of high-risk medication Z79.899 and Socially inappropriate behavior F99 [facility] [id number] [place] [address] 65101- 0435 Mar, [facility] [id number] [place] [address] 50309- 5234 Mar, Low back pain M54.5 [facility] [id number] [place] [address] 60118- 0252 Mar, [facility] [id number] [place] [address] 05023- 0523 Mar, [place] [id number] [place] [address] 89497- 5750 Feb, Impingement syndrome, shoulder, left M75.42 and Superior glenoid labrum lesion of left shoulder, subsequent encounter S43.432D [facility] [id number] [place] [address] 47546- 8770 January, [place] [id number] [place] [address] 09739- 0748 January, [facility] [id number] [place] [address] 27070- 4650 January, [facility] [id number] [place] [address] 58346- 0009 Dec, Impingement syndrome, shoulder, left M75.42 [facility] [id number] [place] [address] 59841- 2610 Dec, [facility] [id number] [place] [address] 30705- 4247 Nov, [facility] [id number] [place] [address] 63185- 3880 Nov, Essential hypertension I10 ; Pain in left shoulder M25.512 ; Amphetamine abuse F15.10 and Callus of foot L84 [place] [address] 65733- 2164 Nov, Shoulder pain, left M25.512 [place] [address] 00389- 9159 14 Nov, 2015 [place] [address] 40351- 6632 Nov, [place] [address] 91073- 9671 Nov, Allergic rhinitis, unspecified allergic rhinitis type J30.9 ; Right wrist pain M25.531 ; Back pain M54.9 and Essential hypertension I10 [place] [address] 35264- 6115 Nov, [place] [address] 44832- 7274 Oct, [place] [address] 70450- 4021 Oct, Tobacco abuse Z72.0 ; Lumbar back pain M54.5 and Foot callus L84 [place] [address] 14690- 5104 Sep, [place] [address] 88047- 5985 Sep, Lumbar pain M54.5 ; Essential hypertension I10 ; COPD ( chronic obstructive pulmonary disease) J44.9 ; Anxiety F41.9 and Allergic rhinitis, unspecified allergic rhinitis type J30.9 [place] [address] 28721- 4379 Aug, [place] [address] 00211- 1566 Aug, [place] [address] 20162- 8047 Jul, [facility] [id number] [place] [address] 22780- 1686 Jul, Lumbar back pain M54.5 ; Essential hypertension I10 ; COPD ( chronic obstructive pulmonary disease) J44.9 ; Anxiety F41.9 and Allergic rhinitis J30.9 [place] [id number] [place] [address] 39175- 7141 Apr, Positive urine drug screen 796.0 and Chronic lumbar pain 724.2 [place] [address] 80035- 7729 Apr, [place] [address] 39469- 5499 Apr, [place] [id number] [place] [address] 64280- 7751 Apr, [place] [address] 92184- 7677 Apr, Lumbago 724.2 ; Unspecified viral hepatitis C without hepatic coma 070.70 ; Unspecified disorder of skin and subcutaneous tissue 709.9 and Long-term use of high-risk medication V58.69 [place] [id number] [place] [address] 12988- 1336 Mar, Vision changes 368.9 ; Allergic rhinitis 477.9 and Callus of foot [address] [place] [id number] [place] [address] 06361- 6398 Mar, [place] [id number] [place] [address] 98509- 9436 Mar, Chronic airway obstruction, not elsewhere classified 496 ; Essential hypertension, benign 401.1 ; Lumbago 724.2 ; Insomnia, unspecified 780.52 ; Anxiety state, unspecified 300.00 and Unspecified disorder of skin and subcutaneous tissue 709.9 [facility] [id number] [place] [address] [id number] Mar, Dental examination V72.2 [facility] [address] [place] [address] 72656- 9472 Mar, [facility] [id number] [place] [address] 23725- 9303 Feb, Amphetamine and other psychostimulant dependence, unspecified abuse 304.40 [facility] [id number] [place] [address] 10229- 4242 Feb, Chronic airway obstruction, not elsewhere classified 496 ; Back pain 724.5 and Hypertension 401.9 [facility] [id number] [place] [address] 78878- 0167 January, Chronic airway obstruction, not elsewhere classified 496 ; Unspecified disorder of skin and subcutaneous tissue 709.9 ; Lumbago 724.2 ; Essential hypertension, benign 401.1 ; Foot callus 700 and Allergic rhinitis 477.9 [facility] [id number] [place] [address] 65113- 8890 January, [facility] [id number] [place] [address] 70720- 3644 January, [facility] [id number] [place] [address] 02662- 1007 Dec, [facility] [id number] [place] [address] 91424- 3197 Dec, [facility] [id number] [place] [address] 71750- 0281 Nov, [facility] [id number] [place] [address] 04815- 5188 Nov, [facility] [id number] [place] [address] 47341- 5287 Nov, [facility] [id number] [place] [address] 07789- 1565 Nov, [facility] [id number] [place] [address] 84305- 6758 Nov, [facility] [place] [facility] [address] [id number] [place] [address]- 8729 17 Nov, 2014 [facility] [place] [facility] [address] [id number] [place] [address]- 3036 16 Nov, 2014 [facility] [place] [facility] [address] [id number] [place] [address]- 0022 Nov, 2014 [facility] [place] [facility] [address] [id number] [place] [address]- 5566 Nov, 2014 [facility] [place] [facility] [address] [id number] [place] [address]- 5842 Oct, 2014 [facility] [place] [facility] [address] [id number] [place] [address]- 2580 Oct, 2014 [facility] [place] [facility] [address] [id number] [place] [address]- 7512 Oct, 2014 [facility] [place] [facility] [address] [id number] [place] [address]- 6892 Oct, 2014 [facility] [place] [facility] [address] [id number] [place] [address]- 1432 Oct, 2014 [facility] [place] [facility] [address] [id number] [place] [address]- 8740 Oct, 2014 [facility] [place] [facility] [address] [facility] [id number] [place] [address]- 6465 Oct, 2014 [facility] [place] [facility] [address] [id number] [place] [address]- 0174 Oct, 2014 [facility] [place] [facility] [address] [id number] [place] [address]- 3509 Oct, 2014 [facility] [place] [facility] [address] [id number] [place] [address]- 4023 Oct, 2014 [facility] [place] [facility] [address] [facility] [id number] [place] [address]- 7815 Oct, 2014 [facility] [place] [facility] [address] [id number] [place] [address]- 5035 Oct, [facility] [place] [facility] [address] [id number] [place] [address]- 9681 Oct, [facility] [place] [facility] [address] [id number] [place] [address]- 5456 Sep, [facility] [place] [facility] [address] [id number] [place] [address]- 6358 Sep, [facility] [place] [facility] [address] [id number] [place] [address]- 9880 Sep, [facility] [place] [facility] [address] [id number] [place] [address]- 9027 Sep, [facility] [place] [facility] [address] [id number] [place] [address]- 5661 Sep, [facility] [place] [facility] [address] [id number] [place] [address]- 8413 Sep, [facility] [place] [facility] [address] [id number] [place] [address]- 2922 Sep, [facility] [place] [facility] [address] [id number] [place] [address]- 1730 Sep, [facility] [place] [facility] [address] [id number] [place] [address]- 0347 Aug, [facility] [place] [facility] [address] [id number] [place] [address]- 5467 Aug, [facility] [place] [facility] [address] [id number] [place] [address]- 2366 Aug, [facility] [place] [facility] [address] [id number] [place] [address]- 2036 Aug, [facility] [place] [facility] [address] [id number] [place] [address]- 6834 Aug, [facility] [place] [facility] [address] [id number] [place] [address]- 7191 Aug, [facility] [place] [facility] [address] [id number] [place] 2921 Aug, [facility] [place] [facility] [address] [id number] [place] [address]- 8309 Aug, [facility] [place] [facility] [address] [id number] [place] 5215 Aug, [facility] [place] [facility] [address] [id number] [place] [address]- 7050 Aug, [facility] [place] [facility] [address] [id number] [place] [address]- 6748 Aug, [facility] [place] [facility] [address] [id number] [place] 0685 Aug, [facility] [place] [facility] [address] [id number] [place] [address]- 9064 Aug, [facility] [place] [facility] [address] [id number] [place] [address]- 8818 Aug, [facility] [place] [facility] [address] [id number] [place] [id number] Aug, [facility] [place] [facility] [address] [id number] [place] 2964 Aug, [facility] [place] [facility] [address] [id number] [place] [address]- 8730 Jul, [facility] [place] [facility] [address] [id number], [place] [address]- 6939 Jul, [facility] [place] [facility] [address] [id number] [place] [address]- 3521 Jul, [facility] [place] [facility] [address] [id number] [place] [address]- 0725 Jul, [facility] [place] [facility] [address] [id number] [place] [address]- 1058 Jul, [facility] [place] [facility] [address] [id number] [place] [address]- 2814 Jul, [facility] [place] [facility] [address] [id number] [place] [address]- 3091 30 Jun, 2014 [facility] [place] [facility] [address] [id number] [place] [address]- 8784 29 Jun, 2014 [facility] [place] [facility] [address] [id number] [place] [address]- 2033 Jun, [facility] [place] [facility] [address] [id number] [place] [address]- 8386 Jun, [facility] [place] [facility] [address] [id number] [place] [address]- 8190 Jun, [facility] [place] [facility] [address] [id number] [place] [address]- 1252 Jun, [facility] [place] [facility] [address] [id number] [place] [address]- 4214 Jun, [facility] [place] [facility] [address] [id number] [place] [address]- 7238 Jun, [facility] [place] [facility] [address] [id number] [place] [address]- 9635 Jun, [facility] [place] [facility] [address] [facility] [id number] [place] [address]- 4495 Jun, [facility] [place] [facility] [address] [id number] [place] [address]- 2003 Jun, [facility] [place] [facility] [address] [id number] [place] [address]- 2641 Jun, 2013 [facility] [place] [facility] [address] [id number] [place] [address]- 3107 Jun, 2013 [facility] [place] [facility] [address] [id number] [place] [address]- 1642 Jun, 2013 [facility] [place] [facility] [address] [id number] [place] [address]- 1666 Jun, 2013 [facility] [place] [facility] [address] [id number] [place] [address]- 4443 Jun, 2013 [facility] [place] [facility] [address] [id number] [place] [address]- 8694 Jun, 2013 [facility] [place] [facility] [address] [id number] [place] [address]- 1632 Jun, 2013 [facility] [place] [facility] [address] [id number] [place] [address]- 6651 Jun, 2013 [facility] [place] [facility] [address] [id number] [place] [address]- 1983 Jun, 2013 [facility] [place] [facility] [address] [id number] [place] [address]- 6396 Jun, [facility] [place] [facility] [address] [id number] [place] [address]- 1709 Jun, [facility] [place] [facility] [address] [id number] [place] [address]- 8736 Jun, [facility] [place] [facility] [address] [id number] [place] [address]- 6024 29 May, 2013 [facility] [place] [facility] [address] [id number] [place] [address]- 0532 29 May, 2013 [facility] [place] [facility] [address] [id number] [place] [address]- 2706 May, 2013 [facility] [place] [facility] [address] [id number] [place] [address]- 2547 26 May, 2013 [facility] [place] [facility] [address] [id number] [place] [address] 254 25 May, 2013 [facility] [place] [facility] [address] [id number] [place] [address]- 2546 25 May, 2013 [facility] [place] [facility] [address] [id number] [place] [address]- 1457 02 May, 2013 [facility] [place] [facility] [address] [id number] [place] [address]- 0217 May, [facility] [place] [facility] [address] [id number] [place] [address]- 6366 Apr, [facility] [place] [facility] [address] [id number] [place] [address]- 7012 Apr, [facility] [place] [facility] [address] [id number] [place] [address]- 3886 Apr, [facility] [place] [facility] [address] [id number] [place] [address]- 1045 Apr, [facility] [place] [facility] [address] [id number] [place] [address]- 1769 Apr, [facility] [place] [facility] [address] [id number] [place] [address] Apr, [facility] [place] [facility] [address] [id number] [place] [address] Apr, [facility] [place] [facility] [address] [id number] [place] [address] Apr, [facility] [place] [facility] [address] [id number] [place] [address] Apr, [facility] [place] [facility] [address] [id number] [place] [address] Apr, [facility] [place] [facility] [address] [id number] [place] [address] Apr, [facility] [place] [facility] [address] [id number] [place] [address] Apr, [facility] [place] [facility] [address] [id number] [place] [address] Apr, [facility] [place] [facility] [address] [id number] [place] [address] Apr, [facility] [place] [facility] [address] [id number] [place] [address] Apr, [facility] [place] [facility] [address] [id number] [place] [address] Apr, [facility] [place] [facility] [address] [id number] [place] [address] Apr, [facility] [place] [facility] [address] [id number] [place] [address] Apr, [facility] [place] [facility] [address] [id number] [place] [address] Apr, [facility] [place] [facility] [address] [id number] [place] [address] Apr, [facility] [place] [facility] [address] [id number] [place] [address] Apr, [facility] [place] [facility] [address] [id number] [place] [address] Apr, [facility] [place] [facility] [address] [id number] [place] [address] Mar, [facility] [place] [facility] [address] [id number] [place] [address] Mar, [facility] [place] [facility] [address] [id number] [place] [address] Mar, [facility] [place] [facility] [address] [id number] [place] [address] Mar, [facility] [place] [facility] [address] [id number] [place] [address] Mar, [facility] [place] [facility] [address] [id number] [place] [address] Mar, [facility] [place] [facility] [address] [id number] [place] [address] Mar, [facility] [place] [facility] [address] [id number] [place] [address] Mar, [facility] [place] [facility] [address] [id number] [place] [address] Feb, [facility] [place] [facility] [address] [id number] [place] [address] Feb, [facility] [place] [facility] [address] [id number] [place] [address] Feb, [facility] [place] [facility] [address] [id number] [place] [address] 1991 Feb, [facility] [place] [facility] [address] [id number] [place] [address] Feb, [facility] [place] [facility] [address] [id number] [place] [address] Feb, [facility] [place] [facility] [address] [id number] [place] [address] Feb, [facility] [place] [facility] [address] [id number] [place] [address] January, [facility] [place] [facility] [address] [id number] [place] [address] January, [facility] [place] [facility] [address] [id number] [place] [address] January, [facility] [place] [facility] [address] [id number] [place] [address] January, [facility] [place] [facility] [address] [id number] [place] [address] Dec, [facility] [place] [facility] [address] [id number] [place] [address] Dec, [facility] [place] [facility] [address] [id number] [place] [address] Dec, [facility] [place] [facility] [address] [id number] [place] [address] Dec, [facility] [place] [facility] [address] [id number] [place] [address] Dec, [facility] [place] [facility] [address] [id number], [place] [address] Dec, [facility] [place] [facility] [address] [id number] [place] [address] Dec, [facility] [place] [facility] [address] [id number] [place] [address] Dec, [facility] [place] [facility] [address] [facility] [id number] [place] [address] Dec, [facility] [place] [facility] [address] [id number] [place] [address] Dec, [facility] [place] [facility] [address] [id number] [place] [address] Nov, [facility] [place] [facility] [address] [facility] [id number] [place] [address] Nov, [facility] [place] [facility] [address] [facility] [id number] [place] [address] Nov, [facility] [place] [facility] [address] [facility] [id number] [place] [address] Nov, [facility] [place] [facility] [address] [facility] [id number] [place] [address] Oct, [facility] [place] [facility] [address] [facility] [id number] [place] [address] Oct, [facility] [place] [facility] [address] [facility] [id number] [place] [address] 18 Oct, 2013 [facility] [place] [facility] [address] [facility] [id number], [place] [address] Oct, [facility] [place] [facility] [address] [facility] [id number] [place] [address] Oct, [facility] [place] [facility] [address] [facility] [id number], [place] [address] Oct, [facility] [place] [facility] [address] [facility] [id number], [place] [address] 06 Oct, 2013 [facility] [place] [facility] [address] [id number] [place] [address] Oct, [facility] [place] [facility] [address] [id number] [place] [address] Sep, [facility] [place] [facility] [address] [id number] [place] [address] Sep, [facility] [place] [facility] [address] [id number] [place] [address] 6566 Sep, [facility] [place] [facility] [address] [id number] [place] [address] Sep, [facility] [place] [facility] [address] [id number] [place] [address] Aug, [facility] [place] [facility] [address] [id number] [place] [address] Aug, [facility] [place] [facility] [address] [id number] [place] [address]80 Aug, [facility] [place] [facility] [address] [id number] [place] [address] Aug, [facility] [place] [facility] [address] [id number], [place] [address] Jul, [facility] [place] [facility] [address] [id number] [place] [address] Jul, [facility] [place] [facility] [address] [id number][place] [address] Jul, [facility] [place] [facility] [address] [id number] [place] [address] Jul, [facility] [place] [facility] [address] [id number] [place] [address] Jun, [facility] [place] [facility] [address] [id number][place] [address] Jun, [facility] [place] [facility] [address] [id number], [place] [address] 14 Jun, 2013 [facility] [place] [facility] [address] [id number] [place] [address] 14 Jun, 2013 [facility] [place] [facility] [address] [id number] [place] [address] Jun, [facility] [place] [facility] [address] [id number] [place] [address] Jun, [facility] [place] [facility] [address] [id number] [place] [address] 08 Jun, 2013 [facility] [place] [facility] [address] [id number] [place] [address] May, [facility] [place] [facility] [address] [id number] [place] [address] May, [facility] [place] [facility] [address] [id number] [place] [address]- [address]44 May, [facility] [place] [facility] [address] [id number] [place] [address] Apr, [facility] [place] [facility] [address] [id number] [place] [address]- 1585 Apr, [facility] [place] [facility] [address] [id number] [place] [address] 4[address] Apr, [facility] [place] [facility] [address] [id number] [place] [address]507 Apr, [facility] [place] [facility] [address] [id number] [place] [address] 8749 Apr, [facility] [place] [facility] [address] [id number] [place] [address] 18[address] Mar, [facility] [place] [facility] [address] [id number] [place] [address] Mar, [facility] [place] [facility] [address] [id number] [place] [address] 0758 Mar, [facility] [place] [facility] [address] [id number] [place] [address]- [address] Mar, [facility] [address] [id number] [place] [address]- 8189 Mar, [facility] [place] [facility] [address] [id number] [place] [address]- [address] Mar, [facility] [place] [facility] [address] [id number] [place] [address]- 0990 Feb, [facility] [place] [facility] [address] [id number] [place] [address] 49[address] Feb, [facility] [place] [facility] [address] [id number] [place] [address] 2517 Feb, [facility] [place] [facility] [address] [id number] [place] [address]- [address] Feb, [facility] [place] [facility] [address] [id number] [place] [address] 2409 Feb, [facility] [place] [facility] [address] [id number] [place] [address] 2075 Feb, [facility] [place] [facility] [address] [id number] [place] [address]- 8214 Feb, [facility] [place] [facility] [address] [id number] [place] [address]- 2851 Feb, [facility] [place] [facility] [address] [id number] [place] [address] 3542 Feb, [facility] [place] [facility] [address] [id number] [place] [address] 2599 January, [facility] [place] [facility] [address] [id number] [place] [address]- 2219 January, [facility] [place] [facility] [address] [id number] [place] [address]- 8853 January, [facility] [place] [facility] [address] [id number] [place] [address]- 1620 January, [facility] [address] [id number] [place] [address]- 3932 January, [facility] [address] [id number] [place] [address]- 8827 January, [facility] [address] [id number] [place] [address] January, [facility] [address] [id number] [place] [address]- 4243 January, [facility] [address] [id number] [place] [address]- 7265 January, [facility] [address] [id number] [place] [address]- 5909 January, [facility] [address] [id number] [place] [address]- 5804 Dec, [facility] [address] [id number] [place] [address]- 2415 Dec, [facility] [address] [id number] [place] [address]- 8513 Dec, [facility] [address] [id number] [place] [address]- [address]79 Dec, [facility] [address] [id number] [place] [address]- 3747 Dec, [facility] [place] [facility] [address] [id number] [place] [address]- 9174 Dec, [facility] [place] [facility] [address] [id number] [place] [address]- 0371 Nov, [facility] [place] [facility] [address] [id number] [place] [address]- 4834 Nov, [facility] [place] [facility] [address] [id number] [place] [address]- 2335 Nov, [facility] [place] [facility] [address] [id number], [place] [address]- 65[address] Oct, [facility] [address] [id number], [place] [address] Oct, [facility] [address] [id number], [place] [address] 5869 Oct, [facility] [address] [id number] Oct, [facility] [address] [id number], [place] [address]99 Oct, [facility] [id number], [place] [address] Jun, IMMUNIZATIONS No Known Immunizations SOCIAL HISTORY Never Assessed REASON FOR VISIT assisted rx PLAN OF CARE VITAL SIGNS MEDICATIONS Medication Instructions Dosage Frequency Start Date End Date Duration Status Ibuprofen 800 MG Orally Three times a day 1 tablet with food or milk as needed 8h May, Active RESULTS No Results PROCEDURES No [...]
--- OUTSIDE RECORDS SUMMARY | 2018-11-29 19:20 | XMS REPORT ---
Author Author FRANK MULLINS Organization [facility] Address [address] [place] [address] Care Team Providers Care Go Go Dancer Name Role Phone FRANK MULLINS Unavailable PROBLEMS Type Condition ICD9-CM Code [id number] Code Onset Dates Condition Status SNOMED Code Problem Back pain M54.9 Active 110394928 Problem Amphetamine abuse F15.10 Active 00603113 Problem Pain in left shoulder M25.512 Active 82231270 Problem COPD (chronic obstructive pulmonary disease) J44.9 Active 69410862 Problem Anxiety F41.9 Active 26947228 Problem Essential hypertension I10 Active 75243142 Problem Mood disorder F39 Active 08942947 Problem Other chronic pain G89.29 Active 18090985 Problem 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 Active 0964345 Problem Socially inappropriate behavior F99 Active 848431522 Problem Seasonal allergic rhinitis due to other allergic trigger J30.89 Active 465809701 Problem Arthritis M19.90 Active 3949543 ALLERGIES Substance Reaction Event Type Date Status Sulfamethoxazole-Trimethoprim Unknown Drug Allergy Apr, Active ENCOUNTERS Encounter Location Date Diagnosis [place] [id number] [place] [address] 84987- 7382 May, Lumbar back pain M54.5 [facility] [address] [place] [id number] [place] [address] 32158- 4238 Apr, Lumbar back pain M54.5 and Mood disorder F39 [facility] [address] 53796- 4096 Apr, Mood disorder F39 [facility] [address] [place] [id number] Mar, Mood disorder F39 and Lumbosacral pain M54.5 [facility] [address] [place] [id number] Feb, Low back pain M54.5 ; Other chronic pain G89.29 and Seasonal allergic rhinitis due to other allergic trigger J30.[address] [facility] [address], [place] [address] Feb, [facility] [address] [place] [id number] [place] [address] 54452- 8010 Nov, [facility] [address] [place] [place] [id number] [place] [address] 60844- 5450 Sep, [facility] [address] [place] [id number] [place] [address] 45978- 8067 Aug, [facility] [address] [id number] [place] [address] 92255- 6579 Aug, [facility] [address] [place] [id number] [place] [address] 57340- 9858 Jul, [facility] [id number] [place] [address] 53975 -3596 Jul, Back pain M54.9 [facility] [address] [id number] [place] [address] 05228- 8162 Jul, [facility] [address] [id number] [place] [address] 57176- 5932 Jun, [facility] [address] [place] [id number] [place] [address] 15720- 0827 Jun, [facility] [address] [id number] [place] [address] 74263- 1250 Jun, Arthritis M19.90 ; Pain in left shoulder M25.512 and Lumbar back pain M54.5 [facility] [address] [id number] [address] 244[address] May, [facility] [address] [id number] [place] [address] 86040- 9726 Apr, [facility] [id number] [address] 4975 Apr, [facility] [address] [id number] [place] [address] 97351- 6204 08 Apr, 2017 Essential hypertension I10 and Arthritis M19.90 [place] [address] 14853- 0457 Apr, [place] [address] 74145- 4079 Mar, [place] [address] 61638- 3269 Mar, Lumbar pain M54.5 ; 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 ; Allergic rhinitis, unspecified allergic rhinitis type J30.9 and Hematuria R31.9 [place] [address] 32189- 2322 Mar, [facility] [place] [address] 13083 [address]3280 January, Open bite, right lower leg, initial encounter S81.851A and Pain in left shoulder M25.512 [facility] [place] [address] 49370 -4354 Dec, [facility] [place] [address] 64424 -9736 Dec, Low back pain M54.5 [place] [address] 02317- 4629 Aug, [facility] [place] [address] 88321 -2268 Apr, Perforated left tympanic membrane on examination H72.92 and Deafness in left ear H91.92 [place] [address] 23680- 2141 Apr, [place] [address] 73323- 0206 Mar, Lumbar back pain M54.5 ; Essential hypertension I10 ; Chronic obstructive pulmonary disease, unspecified COPD type J44.9 ; Anxiety F41.9 ; Long-term use of high-risk medication Z79.899 and Socially inappropriate behavior F99 [place] [address] 35382- 4592 Mar, [facility] [address] 03082- 5180 Mar, Low back pain M54.5 [place] [address] 56657- 0403 Mar, [facility] [address] 50140- 2654 Mar, [place] [address] 66018- 9257 Feb, Impingement syndrome, shoulder, left M75.42 and Superior glenoid labrum lesion of left shoulder, subsequent encounter S43.432D [place] [address] 55147- 6876 January, [place] [address] 91023- 8378 January, [place] [address] 78504- 3633 January, [place] [address] 37086- 4431 Dec, Impingement syndrome, shoulder, left M75.42 [place] [address] [place] [id number] [place] [address] 36342- 2026 Dec, [facility] [address] 00977- 4736 Nov, [place] [address] 74809- 3746 Nov, Essential hypertension I10 ; Pain in left shoulder M25.512 ; Amphetamine abuse F15.10 and Callus of foot L84 [place] [address] 33090- 2243 Nov, Shoulder pain, left M25.512 [facility] [address] [place] [id number] [place] [address] 83752- 7101 Nov, [facility] [address] [place] [id number] [place] [address] 54272- 8805 Nov, [facility] [address] 58582- 5922 Nov, Allergic rhinitis, unspecified allergic rhinitis type J30.9 ; Right wrist pain M25.531 ; Back pain M54.9 and Essential hypertension I10 [facility] [address] 77644- 0680 Nov, [facility] [address] [place] [id number] [place] [address] 04572- 8867 Oct, [facility] [address] 92275- 5228 Oct, Tobacco abuse Z72.0 ; Lumbar back pain M54.5 and Foot callus L84 [facility] [address] [place] [id number] [place] [address] 61624- 7785 Sep, [facility] [address] [place] [id number] [place] [address] 44080- 4654 Sep, Lumbar pain M54.5 ; Essential hypertension I10 ; COPD ( chronic obstructive pulmonary disease) J44.9 ; Anxiety F41.9 and Allergic rhinitis, unspecified allergic rhinitis type J30.9 [facility] [address] [place] [id number] [place] [address] 66184- 3136 Aug, [facility] [address] [place] [id number] [place] [address] 05212- 3525 Aug, [facility] [address] [place] [id number] [place] [address] 13346- 9446 Jul, [facility] [address] 72899- 3202 Jul, Lumbar back pain M54.5 ; Essential hypertension I10 ; COPD ( chronic obstructive pulmonary disease) J44.9 ; Anxiety F41.9 and Allergic rhinitis J30.9 [place] [address] 01337- 4925 Apr, Positive urine drug screen 796.0 and Chronic lumbar pain 724.2 [place] [address] 18025- 6278 Apr, [place] [address] 39184- 8983 Apr, [place] [address] 01813- 1893 Apr, [place] [address] 58115- 9048 Apr, Lumbago 724.2 ; Unspecified viral hepatitis C without hepatic coma 070.70 ; Unspecified disorder of skin and subcutaneous tissue 709.9 and Long-term use of high-risk medication V58.69 [place] [address] 36869- 8202 Mar, Vision changes 368.9 ; Allergic rhinitis 477.9 and Callus of foot 700 [place] [address] 34204- 4932 Mar, [place] [address] 86507- 3668 Mar, Chronic airway obstruction, not elsewhere classified 496 ; Essential hypertension, benign 401.1 ; Lumbago 724.2 ; Insomnia, unspecified 780.52 ; Anxiety state, unspecified 300.00 and Unspecified disorder of skin and subcutaneous tissue 709.9 [facility] [address] [place] [id number] [place] [id number] Mar, Dental examination V72.2 [place] [address] 34262- 8587 Mar, [place] [address], [place] [address] 6077 Feb, Amphetamine and other psychostimulant dependence, unspecified abuse 304.40 [facility] [address] [address]- 2737 Feb, Chronic airway obstruction, not elsewhere classified 496 ; Back pain 724.5 and Hypertension 401.9 [facility] [address] [place] [id number] [place] [address] 60118- 5315 January, Chronic airway obstruction, not elsewhere classified 496 ; Unspecified disorder of skin and subcutaneous tissue 709.9 ; Lumbago 724.2 ; Essential hypertension, benign 401.1 ; Foot callus 700 and Allergic rhinitis 477.9 [facility] [address], [place] [address]- 8270 January, [facility] [address] [place] [id number] [place] [address] 17784- 0776 January, [facility] [address] [place] [id number] [place] [address] 68997- 4673 Dec, [facility] [address] [place] [id number] [place] [address] 11792- 1496 Dec, [facility] [address], [place] [address]- 5069 Nov, [facility] [address], [place] [address]- 3507 Nov, [facility] [address], [place] [address]- 8631 Nov, [facility] [address] [place] [id number] [place] [address] 53108- 6373 Nov, [facility] [address] [address] 2160 Nov, [facility] [id number] [place] [address] 19290- 1547 Nov, [facility] [place] [facility] [address] [id number] [place] [address] 16 Nov, 2014 [facility] [place] [facility] [address] [id number] [place] [address]- 6210 Nov, 2014 [facility] [place] [facility] [address] [id number] [place] [address]- 9798 Nov, 2014 [facility] [place] [facility] [address] [id number] [place] [address]- 7231 Oct, 2014 [facility] [place] [facility] [address] [id number] [place] [address]- 6346 Oct, 2014 [facility] [place] [facility] [address] [id number] [place] [address]- 2636 Oct, 2014 [facility] [place] [facility] [address] [id number] [place] [address]- 4918 Oct, 2014 [facility] [place] [facility] [address] [id number] [place] [address]- 9262 Oct, 2014 [facility] [place] [facility] [address] [id number] [place] [address]- 8311 Oct, 2014 [facility] [place] [facility] [address] [id number] [place] [address]- 4018 Oct, 2014 [facility] [place] [facility] [address] [id number] [place] [address]- 9832 Oct, 2014 [facility] [place] [facility] [address] [id number] [place] [address]- 7199 Oct, 2014 [facility] [place] [facility] [address] [id number] [place] [address]- 2475 Oct, 2014 [facility] [place] [facility] [address] [id number] [place] [address]- 1118 Oct, 2014 [facility] [place] [facility] [address] [facility] [id number] [place] [address]- 4306 Oct, 2014 [facility] [place] [facility] [address] [id number] [place] [address]- 1715 Oct, [facility] [address] [id number] [place] [address]- 3490 Sep, [facility] [address] [id number] [place] [address]- 8136 Sep, [facility] [address] [id number] [place] [address]- 6115 Sep, [facility] [address] [id number] [place] [address]- 0652 Sep, [facility] [address] [id number] [place] [address]- 6519 Sep, [facility] [address] [id number] [place] [address]- 0833 Sep, [facility] [address] [id number] [place] [address]- 2029 Sep, [facility] [address] [id number] [place] [address]- 0994 Sep, [facility] [address] [id number] [place] [address]- 2065 Aug, [facility] [address] [id number] [place] [address]- 3321 Aug, [facility] [place] [facility] [address] [id number] [place] [address]- 6321 30 Aug, [address] [facility] [place] [facility] [address] [id number] [place] [address]- 3284 Aug, [facility] [place] [facility] [address] [id number] [place] [address]- 5124 Aug, [facility] [place] [facility] [address] [id number] [place] [address]- 6236 Aug, [facility] [address] [id number] [place] [address]- 3112 Aug, [facility] [place] [facility] [address] [id number] [place] [address]- 2739 Aug, [facility] [place] [facility] [address] [id number] [place] 2455 Aug, [facility] [place] [facility] [address] [id number] [place] 8188 Aug, [facility] [place] [facility] [address] [id number] [place] 5389 Aug, [facility] [place] [facility] [address] [id number] [place] 9210 Aug, [facility] [place] [facility] [address] [id number] [place] 1359 Aug, [facility] [place] [facility] [address] [id number] [place] 5101 Aug, [facility] [place] [facility] [address] [facility] [id number] [place] [id number] Aug, [facility] [place] [facility] [address] [id number] [place] [address]- 8799 Aug, [facility] [place] [facility] [address] [id number] [place] [address]- 7531 Jul, [facility] [place] [facility] [address] [id number] [place] [address]- 4322 Jul, [facility] [place] [facility] [address] [id number] [place] [address]- 5127 Jul, [facility] [place] [facility] [address] [id number] [place] 7009 Jul, [facility] [place] [facility] [address] [id number] [place] 5213 Jul, [facility] [place] [facility] [address] [id number] [place] 7239 Jul, [facility] [place] [facility] [address] [id number], [place] [address]- 7997 Jun, 2013 [facility] [place] [facility] [address] [id number] [place] [address]- 8164 Jun, 2013 [facility] [place] [facility] [address] [id number] [place] [address]- 9753 Jun, 2013 [facility] [place] [facility] [address] [id number] [place] [address]- 9401 Jun, [facility] [place] [facility] [address] [id number] [place] [address]- 9238 Jun, 2013 [facility] [place] [facility] [address] [id number] [place] [address]- 5620 Jun, 2013 [facility] [place] [facility] [address] [id number] [place] [address]- 3815 Jun, 2013 [facility] [place] [facility] [address] [id number] [place] [address]- 3858 Jun, [facility] [place] [facility] [address] [id number] [place] [address]- 0908 Jun, [facility] [place] [facility] [address] [id number] [place] [address]- 7432 Jun, 2013 [facility] [place] [facility] [address] [id number] [place] [address]- 1360 Jun, 2013 [facility] [place] [facility] [address] [id number], [place] [address]- 6592 Jun, 2013 [facility] [place] [facility] [address] [id number], [place] [address]- 9193 Jun, 2013 [facility] [place] [facility] [address] [id number] [place] [address]- 6288 Jun, 2013 [facility] [place] [facility] [address] [id number], [place] [address]- 7315 Jun, 2013 [facility] [place] [facility] [address] [id number] [place] [address]- 4981 Jun, 2013 [facility] [place] [facility] [address] [id number] [place] [address]- 4073 07 Jun, 2013 [facility] [place] [facility] [address] [id number] [place] [address]- 6261 Jun, [facility] [place] [facility] [address] [id number] [place] [address]- 9946 Jun, 2013 [facility] [place] [facility] [address] [id number] [place] [address]- 6470 Jun, 2013 [facility] [place] [facility] [address] [id number] [place] [address]- 9744 Jun, [facility] [place] [facility] [address] [id number] [place] [address]- 6993 Jun, [facility] [place] [facility] [address] [id number] [place] [address]- 8471 Jun, [facility] [place] [facility] [address] [id number] [place] [address]- 5079 29 May, 2013 [facility] [place] [facility] [address] [id number] [place] [address]- 0322 29 May, 2013 [facility] [place] [facility] [address] [id number] [place] [address]- 1496 26 May, 2013 [facility] [place] [facility] [address] [id number] [place] [address]- 3520 26 May, 2013 [facility] [place] [facility] [address] [id number] [place] [address]- 2545 25 May, 2013 [facility] [place] [facility] [address] [id number] [place] [address] 2544 25 May, 2013 [facility] [place] [facility] [address] [id number] [place] [address]- 0966 May, 2013 [facility] [place] [facility] [address] [id number] [place] [address]- 8346 02 May, 2013 [facility] [place] [facility] [address] [id number] [place] [address]- 0958 Apr, [facility] [place] [facility] [address] [id number] [place] [address]- 2534 Apr, [facility] [place] [facility] [address] [id number] [place] [address]- 8879 Apr, [facility] [place] [facility] [address] [id number] [place] [address]- 3011 Apr, [facility] [place] [facility] [address] [id number] [place] [address]- 5401 Apr, [facility] [place] [facility] [address] [id number] [place] [address]- 8399 Apr, [facility] [place] [facility] [address] [id number] [place] [address]- 8505 Apr, [facility] [place] [facility] [address] [id number] [place] [address]- 6119 Apr, [facility] [place] [facility] [address] [id number] [place] [address]- 9119 Apr, [facility] [place] [facility] [address] [id number] [place] [address]- 0104 Apr, [facility] [place] [facility] [address] [id number] [place] [address]- 2191 Apr, [facility] [place] [facility] [address] [id number] [place] [address]- 5164 Apr, [facility] [place] [facility] [address] [id number] [place] [address]- 7490 Apr, [facility] [place] [facility] [address] [id number] [place] [address]- 6299 Apr, [facility] [place] [facility] [address] [id number] [place] [address]- 5575 Apr, [facility] [place] [facility] [address] [id number] [place] [address]- 3925 Apr, [facility] [place] [facility] [address] [id number] [place] [address]- 2679 Apr, [facility] [place] [facility] [address] [id number] [place] [address]- 3726 Apr, [facility] [place] [facility] [address] [id number] [place] [address]- 1347 Apr, [facility] [place] [facility] [address] [id number] [place] [address]- 3148 Apr, [facility] [place] [facility] [address] [id number] [place] [address]- 8103 Apr, [facility] [place] [facility] [address] [id number] [place] [address]- 4838 Apr, [facility] [place] [facility] [address] [id number] [place] [address]- 7342 Mar, [facility] [place] [facility] [address] [id number] [place] [address]- 2473 Mar, [facility] [place] [facility] [address] [id number] [place] [address]- 6414 Mar, [facility] [place] [facility] [address] [id number] [place] [address]- 1267 Mar, [facility] [place] [facility] [address] [id number] [place] [address]- 2181 Mar, [facility] [place] [facility] [address] [id number] [place] [address]- 3352 Mar, [facility] [place] [facility] [address] [id number] [place] [address]- 7491 Mar, [facility] [place] [facility] [address] [id number] [place] [address]- 5562 Mar, [facility] [place] [facility] [address] [id number] [place] [address] Feb, [facility] [place] [facility] [address] [id number] [place] [address] Feb, [facility] [place] [facility] [address] [id number] [place] [address] Feb, [facility] [place] [facility] [address] [id number] [place] [address] Feb, [facility] [place] [facility] [address] [id number] [place] [address] Feb, [facility] [place] [facility] [address] [id number] [place] [address] Feb, [facility] [place] [facility] [address] [id number] [place] [address] Feb, [facility] [place] [facility] [address] [id number] [place] [address] January, [facility] [place] [facility] [address] [id number] [place] [address] January, [facility] [place] [facility] [address] [id number] [place] [address] January, [facility] [place] [facility] [address] [id number] [place] [address] January, [facility] [place] [facility] [address] [id number] [place] [address] Dec, [facility] [place] [facility] [address] [id number] [place] [address] Dec, [facility] [place] [facility] [address] [id number] [place] [address] Dec, [facility] [place] [facility] [address] [id number] [place] [address] Dec, [facility] [place] [facility] [address] [id number] [place] [address] Dec, [facility] [place] [facility] [address] [id number] [place] [address] Dec, [facility] [place] [facility] [address] [id number] [place] [address] 17 Dec, 2013 [facility] [place] [facility] [address] [id number] [place] [address]- [address] 17 Dec, 2013 [facility] [place] [facility] [address] [id number] [place] [address] 15 Dec, 2013 [facility] [place] [facility] [address] [facility] [id number] [place] [address] Dec, [facility] [place] [facility] [address] [facility] [id number] [place] [address]- [address] Nov, [facility] [place] [facility] [address] [id number] [place] [address] Nov, [facility] [place] [facility] [address] [facility] [id number] [place] [address]- [address] Nov, [facility] [place] [facility] [address] [facility] [id number] [place] [address] Nov, [facility] [place] [facility] [address] [facility] [id number] [place] [address] Oct, [facility] [place] [facility] [address] [facility] [id number] [place] [address]- [address] Oct, [facility] [place] [facility] [address] [facility] [id number] [place] [address]- [address] Oct, [facility] [place] [facility] [address] [facility] [id number], [place] [address] Oct, [facility] [place] [facility] [address] [facility] [id number], [place] [address]- [address] Oct, [facility] [place] [facility] [address] [facility] [id number] [place] [address] Oct, [facility] [place] [facility] [address] [facility] [id number][place] [address] 06 Oct, 2013 [facility] [place] [facility] [address] [id number] [address] [address] Oct, [facility] [place] [facility] [address] [id number] [place] [address] Sep, [facility] [place] [facility] [address] [id number] [place] [address] Sep, [facility] [place] [facility] [address] [id number] [place] [address]- [address] Sep, [facility] [place] [facility] [address] [id number] [place] [address]- [address] Sep, [facility] [place] [facility] [address] [id number] [place] [address] Aug, [facility] [place] [facility] [address] [id number] [place] [address]- [address] Aug, [facility] [place] [facility] [address] [id number] [place] [address] Aug, [facility] [place] [facility] [address] [id number] [place] [address] Aug, [facility] [place] [facility] [address] [id number] [place] [address] Jul, [facility] [place] [facility] [address] [id number] [place] [address] Jul, [facility] [place] [facility] [address] [id number] [place] [address] Jul, [facility] [place] [facility] [address] [id number] [place] [address] Jul, [facility] [place] [facility] [address] [id number] [place] [address] Jun, [facility] [place] [facility] [address] [id number] [place] [address] Jun, [facility] [place] [facility] [address] [id number] [place] [address] 14 Jun, 2013 [facility] [place] [facility] [address] [id number] [place] [address] 14 Jun, 2013 [facility] [place] [facility] [address] [id number] [place] [address] Jun, [facility] [place] [facility] [address] [id number] [place] [address] Jun, [facility] [place] [facility] [address] [id number] [place] [address] Jun, [facility] [place] [facility] [address] [id number] [place] [address] May, [facility] [place] [facility] [address] [id number] [place] [address] May, [facility] [place] [facility] [address] [id number] [place] [address] May, [facility] [place] [facility] [address] [id number] [place] [address] Apr, [facility] [place] [facility] [address] [id number] [place] [address] Apr, [facility] [place] [facility] [address] [id number] [place] [address] Apr, [facility] [place] [facility] [address] [id number] [place] [address] Apr, [facility] [place] [facility] [address] [id number] [place] [address] Apr, [facility] [place] [facility] [address] [id number], [place] [address] Mar, [facility] [place] [facility] [address] [id number] [place] [address] Mar, [facility] [place] [facility] [address] [id number] [place] [address] Mar, [facility] [place] [facility] [address] [id number] [place] [address] Mar, [facility] [place] [facility] [address] [id number] [place] [address] Mar, [facility] [address] [id number] [place] [address] Mar, [facility] [address] [id number] [place] [address] Feb, [facility] [address] [id number] [place] [address] Feb, [facility] [address] [id number] [place] [address] Feb, [facility] [address] [id number] [place] [address] Feb, [facility] [address] [id number] [place] [address] Feb, [facility] [address] [id number] [place] [address] Feb, [facility] [address] [id number] [place] [address] Feb, [facility] [address] [id number] [place] [address] Feb, [facility] [address] [id number] [place] [address] Feb, [facility] [address] [id number] [place] [address] January, [facility] [address] [id number] [place] [address] January, [facility] [place] [facility] [address] [id number] [place] [address] January, [facility] [place] [facility] [address] [id number] [place] [address] January, [facility] [address] [id number] [place] [address] January, [facility] [address] [id number] [place] [address] January, [facility] [address] [id number] [place] [address] January, [facility] [address] [id number] [place] [address] January, [facility] [address] [id number] [place] [address] January, [facility] [address] [id number] [place] [address] January, [facility] [address] [id number] [place] [address] Dec, [facility] [address] [id number] [place] [address] Dec, [facility] [address] [id number] [place] [address] Dec, [facility] [address] [id number] [place] [address] Dec, [facility] [address] [id number] [place] [address] Dec, [facility] [address] [id number] [place] [address] Dec, [facility] [address] [id number], [place] [address] Nov, [facility] [address] [id number] [place] [address] Nov, [facility] [place] [facility] [address] [id number] [place] [address] Nov, [facility] [place] [facility] [address] [id number] [place] [address] Oct, [facility] [address] [id number], [place] [address] Oct, [facility] [address] [facility] [id number] [place] [address] Oct, [facility] [address] [facility] [id number], [place] [address] Oct, [facility] [address] [facility] [id number], [place] [address] Oct, [facility] [address] [facility] [id number], [place] [address] Jun, IMMUNIZATIONS No Known Immunizations SOCIAL HISTORY Never Assessed REASON FOR VISIT longterm rx PLAN OF CARE VITAL SIGNS MEDICATIONS Medication Instructions Dosage Frequency Start Date End Date Duration Status Trazodone HCl 50 mg Orally at bedtime 1 tablet at bedtime as needed Apr, 14 days Active Nabumetone 500 mg Orally Twice a day 1 tablet as needed 12h Apr, 14 days Active RESULTS No Results PROCEDURES No [...]
--- OUTSIDE RECORDS SUMMARY | 2018-11-29 19:20 | XMS REPORT ---
Author Author FRANK MULLINS Organization [facility] Address [address] [place] [address] Care Team Providers Care Poleyard Supervisor Name Role Phone FRANK MULLINS Unavailable PROBLEMS Type Condition ICD9-CM Code OWV72-EC Code Onset Dates Condition Status SNOMED Code Problem Back pain M54.9 Active 941205533 Problem Amphetamine abuse F15.10 Active 59170634 Problem Pain in left shoulder M25.512 Active 95897722 Problem COPD (chronic obstructive pulmonary disease) J44.9 Active 40205562 Problem Anxiety F41.9 Active 15850542 Problem Essential hypertension I10 Active 90815774 Problem Mood disorder F39 Active 09914376 Problem Other chronic pain G89.29 Active 89661167 Problem 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 Active 5612266 Problem Socially inappropriate behavior F99 Active 236966905 Problem Seasonal allergic rhinitis due to other allergic trigger J30.89 Active 696179585 Problem Arthritis M19.90 Active 8304943 ALLERGIES Substance Reaction Event Type Date Status Sulfamethoxazole-Trimethoprim Unknown Drug Allergy Apr, Active ENCOUNTERS Encounter Location Date Diagnosis [place] [id number] [place] [address] 90047- 7420 May, Lumbar back pain M54.5 [facility] [address] [place] [id number] [place] [address] 73993- 8506 Apr, Lumbar back pain M54.5 and Mood disorder F39 [facility] [address] 57508- 0553 Apr, Mood disorder F39 [facility] [address] [place] [id number] Mar, Mood disorder F39 and Lumbosacral pain M54.5 [facility] [address] [place] [id number] Feb, Low back pain M54.5 ; Other chronic pain G89.29 and Seasonal allergic rhinitis due to other allergic trigger J30.89 [facility] [address] [address] Feb, [facility] [address] [place] [id number] [place] [address] 73751- 6552 Nov, [facility] [address] [place] [id number] [place] [address] 66429- 4888 Sep, [facility] [address] [place] [id number] [place] [address] 20226- 0059 Aug, [facility] [address] [place] [id number] [place] [address] 09123- 6506 Aug, [facility] [address] [place] [id number] [place] [address] 79670- 1635 Jul, [facility] [address] [place] [id number] [place] [address] 21702 -8757 Jul, Back pain M54.9 [facility] [address] [place] [id number] [place] [address] 38954- 7689 Jul, [facility] [address] [place] [id number] [place] [address] 55284- 2289 Jun, [facility] [address] [place] [id number] [place] [address] 06281- 8295 Jun, [facility] [address] [place] [id number] [place] [address] 06308- 2495 Jun, Arthritis M19.90 ; Pain in left shoulder M25.512 and Lumbar back pain M54.5 [facility] [address] [place] [id number] [address] 7272 May, [facility] [address] [place] [id number] [place] [address] 88539- 9394 Apr, [facility] [address] [id number] [address] 9980 Apr, [facility] [address] [place] [id number] [place] [address] 52236- 0561 08 Apr, 2017 Essential hypertension I10 and Arthritis M19.90 [place] [address] 17962- 6871 Apr, [place] [address] 82057- 5762 Mar, [place] [address] 84625- 0236 Mar, Lumbar pain M54.5 ; 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 ; Allergic rhinitis, unspecified allergic rhinitis type J30.9 and Hematuria R31.9 [place] [address] 33746- 3650 Mar, [facility] [place] [address] [address]60 [address]0053 January, Open bite, right lower leg, initial encounter S81.851A and Pain in left shoulder M25.512 [facility] [place] [address] 53324 -9228 Dec, [facility] [place] [address] 77705 -0911 Dec, Low back pain M54.5 [place] [address] 67140- 6011 Aug, [facility] [place] [address] 97184 -4455 Apr, Perforated left tympanic membrane on examination H72.92 and Deafness in left ear H91.92 [place] [address] 90146- 2744 Apr, [place] [address] 39817- 0880 Mar, Lumbar back pain M54.5 ; Essential hypertension I10 ; Chronic obstructive pulmonary disease, unspecified COPD type J44.9 ; Anxiety F41.9 ; Long-term use of high-risk medication Z79.899 and Socially inappropriate behavior F99 [place] [address] 81320- 3420 Mar, [facility] [address] 48006- 9230 Mar, Low back pain M54.5 [place] [address] 46138- 2655 Mar, [facility] [address] 74207- 6619 Mar, [place] [address] 53266- 6077 Feb, Impingement syndrome, shoulder, left M75.42 and Superior glenoid labrum lesion of left shoulder, subsequent encounter S43.432D [place] [address] 21410- 9335 January, [place] [address] 51332- 5551 January, [place] [address] 04793- 8920 January, [place] [address] 92414- 2915 Dec, Impingement syndrome, shoulder, left M75.42 [place] [address] [place] [id number] [place] [address] 48350- 8623 Dec, [facility] [address] 10308- 5182 Nov, [place] [address] 94618- 2498 Nov, Essential hypertension I10 ; Pain in left shoulder M25.512 ; Amphetamine abuse F15.10 and Callus of foot L84 [place] [address] 84325- 6108 Nov, Shoulder pain, left M25.512 [facility] [address] [place] [id number] [place] [address] 88921- 7112 Nov, [facility] [address] [place] [id number] [place] [address] 24081- 0481 Nov, [facility] [address] 35531- 8488 Nov, Allergic rhinitis, unspecified allergic rhinitis type J30.9 ; Right wrist pain M25.531 ; Back pain M54.9 and Essential hypertension I10 [facility] [address] 09250- 8837 Nov, [facility] [address] [place] [id number] [place] [address] 82162- 5195 Oct, [facility] [address] 87378- 3380 Oct, Tobacco abuse Z72.0 ; Lumbar back pain M54.5 and Foot callus L84 [facility] [address] [place] [id number] [place] [address] 44790- 2824 Sep, [facility] [address] [place] [id number] [place] [address] 47756- 1277 Sep, Lumbar pain M54.5 ; Essential hypertension I10 ; COPD ( chronic obstructive pulmonary disease) J44.9 ; Anxiety F41.9 and Allergic rhinitis, unspecified allergic rhinitis type J30.9 [facility] [address] [place] [id number] [place] [address] 11256- 0732 Aug, [facility] [address] [place] [id number] [place] [address] 19416- 9308 Aug, [facility] [address] [place] [id number] [place] [address] 73847- 2995 Jul, [facility] [address] 97800- 8620 Jul, Lumbar back pain M54.5 ; Essential hypertension I10 ; COPD ( chronic obstructive pulmonary disease) J44.9 ; Anxiety F41.9 and Allergic rhinitis J30.9 [place] [address] 76620- 6059 Apr, Positive urine drug screen 796.0 and Chronic lumbar pain 724.2 [place] [address] 70340- 9755 Apr, [place] [address] 05711- 5447 Apr, [place] [address] 72124- 6475 Apr, [place] [address] 61858- 0974 Apr, Lumbago 724.2 ; Unspecified viral hepatitis C without hepatic coma 070.70 ; Unspecified disorder of skin and subcutaneous tissue 709.9 and Long-term use of high-risk medication V58.69 [place] [address] 70521- 7620 Mar, Vision changes 368.9 ; Allergic rhinitis 477.9 and Callus of foot 700 [place] [address] 21518- 4532 Mar, [place] [address] 05600- 3884 Mar, Chronic airway obstruction, not elsewhere classified 496 ; Essential hypertension, benign 401.1 ; Lumbago 724.2 ; Insomnia, unspecified 780.52 ; Anxiety state, unspecified 300.00 and Unspecified disorder of skin and subcutaneous tissue 709.9 [facility] [address] [place] [id number] [place] [address] [id number] Mar, Dental examination V72.2 [place] [address] 93563- 0751 Mar, [place] [address] [address] 6903 Feb, Amphetamine and other psychostimulant dependence, unspecified abuse 304.40 [facility] [address] [address]- 0646 Feb, Chronic airway obstruction, not elsewhere classified 496 ; Back pain 724.5 and Hypertension 401.9 [facility] [address] [place] [id number] [place] [address] 28347- 9249 January, Chronic airway obstruction, not elsewhere classified 496 ; Unspecified disorder of skin and subcutaneous tissue 709.9 ; Lumbago 724.2 ; Essential hypertension, benign 401.1 ; Foot callus 700 and Allergic rhinitis 477.9 [facility] [address] [address]- 5648 January, [facility] [address] [place] [id number] [place] [address] 94086- 5021 January, [facility] [address] [place] [id number] [place] [address] 22531- 8167 Dec, [facility] [address] [place] [id number] [place] [address] 78259- 9209 Dec, [facility] [address] [address]- 3753 Nov, [facility] [address] [address]- 4321 Nov, [facility] [address] [address]- 0493 Nov, [facility] [address] [place] [id number] [place] [address] 82667- 3839 Nov, [facility] [address] [address] 6361 Nov, [facility] [id number] [place] [address] 64622- 9454 Nov, [facility] [place] [facility] [address] [id number] [place] [address]- 0316 16 Nov, 2014 [facility] [place] [facility] [address] [id number] [place] [address]- 8768 Nov, 2014 [facility] [place] [facility] [address] [id number] [place] [address]- 9592 Nov, 2014 [facility] [place] [facility] [address] [id number] [place] [address]- 3497 Oct, 2014 [facility] [place] [facility] [address] [id number] [place] [address]- 6715 Oct, 2014 [facility] [place] [facility] [address] [id number] [place] [address]- 5667 Oct, 2014 [facility] [place] [facility] [address] [id number] [place] [address]- 2705 Oct, 2014 [facility] [place] [facility] [address] [id number] [place] [address]- 7103 Oct, 2014 [facility] [place] [facility] [address] [id number] [place] [address]- 4881 Oct, 2014 [facility] [place] [facility] [address] [id number] [place] [address]- 9962 Oct, 2014 [facility] [place] [facility] [address] [id number] [place] [address]- 4132 Oct, 2014 [facility] [place] [facility] [address] [id number] [place] [address]- 6854 Oct, 2014 [facility] [place] [facility] [address] [id number] [place] [address]- 2364 Oct, 2014 [facility] [place] [facility] [address] [id number] [place] [address]- 5107 Oct, 2014 [facility] [place] [facility] [address] [facility] [id number] [place] [address]- 8579 Oct, 2014 [facility] [place] [facility] [address] [id number] [place] [address]- 5324 Oct, [facility] [address] [id number] [place] [address]- 7540 Sep, [facility] [address] [id number] [place] [address]- 2196 Sep, [facility] [address] [id number] [place] [address]- 7088 Sep, [facility] [address] [id number] [place] [address]- 7127 Sep, [facility] [address] [id number] [place] [address]- 5438 Sep, [facility] [address] [id number] [place] [address]- 6345 Sep, [facility] [address] [id number] [place] [address]- 6336 Sep, [facility] [address] [id number] [place] [address]- 6067 Sep, [facility] [address] [id number] [place] [address]- 2393 Aug, [facility] [address] [id number] [place] [address]- 8709 Aug, [facility] [place] [facility] [address] [id number] [place] [address]- 8994 30 Aug, 2014 [facility] [place] [facility] [address] [id number] [place] [address]- 0583 Aug, [facility] [place] [facility] [address] [id number] [place] [address]- 2453 Aug, [facility] [place] [facility] [address] [id number] [place] [address]- 4046 Aug, [facility] [address] [id number] [place] [address]- 0256 Aug, [facility] [place] [facility] [address] [id number] [place] [address]- 5091 Aug, [facility] [place] [facility] [address] [id number] [place] 5492 Aug, [facility] [place] [facility] [address] [id number] [place] 2508 Aug, [facility] [place] [facility] [address] [id number] [place] 0902 Aug, [facility] [place] [facility] [address] [id number] [place] 3127 Aug, [facility] [place] [facility] [address] [id number] [place] 0379 Aug, [facility] [place] [facility] [address] [id number] [place] 0800 Aug, [facility] [place] [facility] [address] [facility] [id number] [place] [id number] Aug, [facility] [place] [facility] [address] [id number] [place] [address]- 9022 Aug, [facility] [place] [facility] [address] [id number] [place] [address]- 4422 Jul, [facility] [place] [facility] [address] [id number] [place] [address]- 0704 Jul, [facility] [place] [facility] [address] [id number] [place] [address]- 2788 Jul, [facility] [place] [facility] [address] [id number] [place] 1896 Jul, [facility] [place] [facility] [address] [id number] [place] 4311 Jul, [facility] [place] [facility] [address] [id number] [place] 6602 Jul, [facility] [place] [facility] [address] [id number] [address]- 7797 Jun, 2013 [facility] [place] [facility] [address] [id number] [place] [address]- 3387 Jun, 2013 [facility] [place] [facility] [address] [id number] [place] [address]- 4908 Jun, 2013 [facility] [place] [facility] [address] [id number] [place] [address]- 3515 Jun, [facility] [place] [facility] [address] [id number] [place] [address]- 1293 Jun, 2013 [facility] [place] [facility] [address] [id number] [place] [address]- 0023 Jun, 2013 [facility] [place] [facility] [address] [id number] [place] [address]- 0375 Jun, 2013 [facility] [place] [facility] [address] [id number] [place] [address]- 5167 Jun, [facility] [place] [facility] [address] [id number] [place] [address]- 8621 Jun, [facility] [place] [facility] [address] [id number] [place] [address]- 9523 Jun, 2013 [facility] [place] [facility] [address] [id number] [place] [address]- 2658 Jun, 2013 [facility] [place] [facility] [address] [id number] [address]- 4185 Jun, 2013 [facility] [place] [facility] [address] [id number], [place] [address]- 4237 Jun, 2013 [facility] [place] [facility] [address] [id number] [place] [address]- 9697 Jun, 2013 [facility] [place] [facility] [address] [id number], [place] [address]- 3849 Jun, 2013 [facility] [place] [facility] [address] [id number] [place] [address]- 4784 Jun, 2013 [facility] [place] [facility] [address] [id number] [place] [address]- 3307 07 Jun, 2013 [facility] [place] [facility] [address] [id number] [place] [address]- 5028 Jun, [facility] [place] [facility] [address] [id number] [place] [address]- 4496 Jun, 2013 [facility] [place] [facility] [address] [id number] [place] [address]- 6759 Jun, 2013 [facility] [place] [facility] [address] [id number] [place] [address]- 4037 Jun, [facility] [place] [facility] [address] [id number] [place] [address]- 7678 Jun, [facility] [place] [facility] [address] [id number] [place] [address]- 0489 Jun, [facility] [place] [facility] [address] [id number] [place] [address]- 3080 29 May, 2013 [facility] [place] [facility] [address] [id number] [place] [address]- 7105 29 May, 2013 [facility] [place] [facility] [address] [id number] [place] [address]- 4186 26 May, 2013 [facility] [place] [facility] [address] [id number] [place] [address]- 2272 26 May, 2013 [facility] [place] [facility] [address] [id number] [place] [address]- 2542 25 May, 2013 [facility] [place] [facility] [address] [id number] [place] [address] 2543 25 May, 2013 [facility] [place] [facility] [address] [id number] [place] [address]- 2506 May, 2013 [facility] [place] [facility] [address] [id number] [place] [address]- 2256 02 May, 2013 [facility] [place] [facility] [address] [id number] [place] [address]- 4294 Apr, [facility] [place] [facility] [address] [id number] [place] [address]- 6388 Apr, [facility] [place] [facility] [address] [id number] [place] [address]- 8955 Apr, [facility] [place] [facility] [address] [id number] [place] [address]- 3523 Apr, [facility] [place] [facility] [address] [id number] [place] [address]- 3423 Apr, [facility] [place] [facility] [address] [id number] [place] [address]- 9423 Apr, [facility] [place] [facility] [address] [id number] [place] [address]- 9972 Apr, [facility] [place] [facility] [address] [id number] [place] [address]- 9349 Apr, [facility] [place] [facility] [address] [id number] [place] [address]- 8394 Apr, [facility] [place] [facility] [address] [id number] [place] [address]- 3570 Apr, [facility] [place] [facility] [address] [id number] [place] [address]- 1555 Apr, [facility] [place] [facility] [address] [id number] [place] [address]- 6473 Apr, [facility] [place] [facility] [address] [id number] [place] [address]- 9249 Apr, [facility] [place] [facility] [address] [id number] [place] [address]- 8899 Apr, [facility] [place] [facility] [address] [id number] [place] [address]- 0977 Apr, [facility] [place] [facility] [address] [id number] [place] [address]- 0752 Apr, [facility] [place] [facility] [address] [id number] [place] [address]- 3769 Apr, [facility] [place] [facility] [address] [id number] [place] [address]- 4852 Apr, [facility] [place] [facility] [address] [id number] [place] [address]- 6368 Apr, [facility] [place] [facility] [address] [id number] [place] [address]- 0080 Apr, [facility] [place] [facility] [address] [id number] [place] [address]- 8336 Apr, [facility] [place] [facility] [address] [id number] [place] [address]- 0396 Apr, [facility] [place] [facility] [address] [id number] [place] [address]- 8314 Mar, [facility] [place] [facility] [address] [id number] [place] [address]- 4304 Mar, [facility] [place] [facility] [address] [id number] [place] [address]- 3264 Mar, [facility] [place] [facility] [address] [id number] [place] [address]- 4515 Mar, [facility] [place] [facility] [address] [id number] [place] [address] Mar, [facility] [place] [facility] [address] [id number] [place] [address] Mar, [facility] [place] [facility] [address] [id number] [place] [address] Mar, [facility] [place] [facility] [address] [id number] [place] [address] Mar, [facility] [place] [facility] [address] [id number] [place] [address] Feb, [facility] [place] [facility] [address] [id number] [place] [address] Feb, [facility] [place] [facility] [address] [id number] [place] [address] Feb, [facility] [place] [facility] [address] [id number] [place] [address] Feb, [facility] [place] [facility] [address] [id number] [place] [address] Feb, [facility] [place] [facility] [address] [id number] [place] [address] Feb, [facility] [place] [facility] [address] [id number] [place] [address] Feb, [facility] [place] [facility] [address] [id number] [place] [address] January, [facility] [place] [facility] [address] [id number] [place] [address] January, [facility] [place] [facility] [address] [id number] [place] [address] January, [facility] [place] [facility] [address] [id number] [place] [address] January, [facility] [place] [facility] [address] [id number] [place] [address] Dec, [facility] [place] [facility] [address] [id number] [place] [address] Dec, [facility] [place] [facility] [address] [id number] [place] [address] Dec, [facility] [place] [facility] [address] [id number] [place] [address] Dec, [facility] [place] [facility] [address] [id number] [place] [address] Dec, [facility] [place] [facility] [address] [id number] [place] [address] Dec, [facility] [place] [facility] [address] [id number] [place] [address] 17 Dec, 2013 [facility] [place] [facility] [address] [id number] [place] [address]- [address] 17 Dec, 2013 [facility] [place] [facility] [address] [id number] [place] [address] 15 Dec, 2013 [facility] [place] [facility] [address] [facility] [id number] [place] [address] Dec, [facility] [place] [facility] [address] [facility] [id number] [place] [address] Nov, [facility] [place] [facility] [address] [id number] [place] [address] Nov, [facility] [place] [facility] [address] [facility] [id number] [place] [address] Nov, [facility] [place] [facility] [address] [facility] [id number] [place] [address] Nov, [facility] [place] [facility] [address] [facility] [id number] [place] [address] Oct, [facility] [place] [facility] [address] [facility] [id number] [place] [address] Oct, [facility] [place] [facility] [address] [facility] [id number] [place] [address] Oct, [facility] [place] [facility] [address] [facility] [id number] [address] Oct, [facility] [place] [facility] [address] [facility] [id number], [place] [address] Oct, [facility] [place] [facility] [address] [facility] [id number] [place] [address] Oct, [facility] [place] [facility] [address] [facility] [id number] [address] [address] 06 Oct, 2013 [facility] [place] [facility] [address] [id number] [address] Oct, [facility] [place] [facility] [address] [id number] [place] [address] Sep, [facility] [place] [facility] [address] [id number] [place] [address] Sep, [facility] [place] [facility] [address] [id number] [place] [address] Sep, [facility] [place] [facility] [address] [id number] [place] [address] Sep, [facility] [place] [facility] [address] [id number] [place] [address] Aug, [facility] [place] [facility] [address] [id number] [place] [address] Aug, [facility] [place] [facility] [address] [id number] [place] [address] Aug, [facility] [place] [facility] [address] [id number] [place] [address] Aug, [facility] [place] [facility] [address] [id number] [place] [address] Jul, [facility] [place] [facility] [address] [id number] [place] [address] Jul, [facility] [place] [facility] [address] [id number] [place] [address] Jul, [facility] [place] [facility] [address] [id number] [place] [address] Jul, [facility] [place] [facility] [address] [id number] [place] [address] Jun, [facility] [place] [facility] [address] [id number] [place] [address] Jun, [facility] [place] [facility] [address] [id number] [place] [address] 14 Jun, 2013 [facility] [place] [facility] [address] [id number] [place] [address] 14 Jun, 2013 [facility] [place] [facility] [address] [id number] [place] [address] Jun, [facility] [place] [facility] [address] [id number] [place] [address] Jun, [facility] [place] [facility] [address] [id number] [place] [address] Jun, [facility] [place] [facility] [address] [id number] [place] [address] May, [facility] [place] [facility] [address] [id number] [place] [address] May, [facility] [place] [facility] [address] [id number] [place] [address] May, [facility] [place] [facility] [address] [id number] [place] [address] Apr, [facility] [place] [facility] [address] [id number] [place] [address] Apr, [facility] [place] [facility] [address] [id number] [place] [address] Apr, [facility] [place] [facility] [address] [id number] [place] [address] Apr, [facility] [place] [facility] [address] [id number] [place] [address] Apr, [facility] [place] [facility] [address] [id number], [place] [address] Mar, [facility] [place] [facility] [address] [id number] [place] [address] Mar, [facility] [place] [facility] [address] [id number] [place] [address] Mar, [facility] [place] [facility] [address] [id number] [place] [address] Mar, [facility] [place] [facility] [address] [id number] [place] [address] Mar, [facility] [address] [id number] [place] [address] Mar, [facility] [address] [id number] [place] [address] Feb, [facility] [address] [id number] [place] [address] Feb, [facility] [address] [id number] [place] [address] Feb, [facility] [address] [id number] [place] [address] Feb, [facility] [address] [id number] [place] [address] Feb, [facility] [address] [id number] [place] [address]65 Feb, [facility] [address] [id number] [place] [address] Feb, [facility] [address] [id number] [place] [address] Feb, [facility] [address] [id number] [place] [address] Feb, [facility] [address] [id number] [place] [address] January, [facility] [address] [id number] [place] [address] January, [facility] [place] [facility] [address] [id number] [place] [address] January, [facility] [place] [facility] [address] [id number] [place] [address] January, [facility] [address] [id number] [place] [address] January, [facility] [address] [id number] [place] [address] January, [facility] [address] [id number] [place] [address] January, [facility] [address] [id number] [place] [address] January, [facility] [address] [id number] [place] [address] January, [facility] [address] [id number] [place] [address] January, [facility] [address] [id number] [place] [address] Dec, [facility] [address] [id number] [place] [address] Dec, [facility] [address] [id number] [place] [address] Dec, [facility] [address] [id number] [place] [address] Dec, [facility] [address] [id number] [place] [address] Dec, [facility] [address] [id number] [place] [address] Dec, [facility] [address] [id number], [place] [address] Nov, [facility] [address] [id number] [place] [address] Nov, [facility] [place] [facility] [address] [id number] [place] [address] Nov, [facility] [place] [facility] [address] [id number] [place] [address] Oct, [facility] [address] [id number], [place] [address] Oct, [facility] [address] [facility] [id number] [place] [address] Oct, [facility] [address] [facility] [id number], [place] [address] Oct, [facility] [address] [facility] [id number], [place] [address] Oct, [facility] [address] [facility] [id number], [place] [address] Jun, IMMUNIZATIONS No Known Immunizations SOCIAL HISTORY Never Assessed REASON FOR VISIT fdc rx PLAN OF CARE VITAL SIGNS MEDICATIONS Medication Instructions Dosage Frequency Start Date End Date Duration Status HydrOXYzine HCl 50 MG Orally at bedtime 1 tablet Mar, 30 day( s) Active RESULTS No Results PROCEDURES No Known [...]
--- OUTSIDE RECORDS SUMMARY | 2018-11-29 19:21 | XMS REPORT ---
Author Author FRANK MULLINS Organization [facility] Address [address] [place] [address] Care Team Providers Care Cloth Mercerizer Operator Name Role Phone FRANK MULLINS Unavailable PROBLEMS Type Condition ICD9-CM Code BQZ85-GB Code Onset Dates Condition Status SNOMED Code Problem Back pain M54.9 Active 616553439 Problem Amphetamine abuse F15.10 Active 06078977 Problem Pain in left shoulder M25.512 Active 41068473 Problem COPD (chronic obstructive pulmonary disease) J44.9 Active 06874376 Problem Anxiety F41.9 Active 30674885 Problem Essential hypertension I10 Active 31208944 Problem Mood disorder F39 Active 50313600 Problem Other chronic pain G89.29 Active 26576720 Problem 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 Active 0922404 Problem Socially inappropriate behavior F99 Active 124268644 Problem Seasonal allergic rhinitis due to other allergic trigger J30.89 Active 172352791 Problem Arthritis M19.90 Active 6229939 ALLERGIES Substance Reaction Event Type Date Status Sulfamethoxazole-Trimethoprim Unknown Drug Allergy Mar, Active ENCOUNTERS Encounter Location Date Diagnosis [place] [id number] [place] [address] 27035- 9995 May, Lumbar back pain M54.5 [facility] [address] [place] [id number] [place] [address] 18431- 0373 Apr, Lumbar back pain M54.5 and Mood disorder F39 [facility] [address] [place] [id number] [place] [address] 78889- 0452 Apr, Mood disorder F39 [facility] [address] [place] [id number] Mar, Mood disorder F39 and Lumbosacral pain M54.5 [facility] [address] [place] [id number] Feb, Low back pain M54.5 ; Other chronic pain G89.29 and Seasonal allergic rhinitis due to other allergic trigger J30.89 [facility] [address] [address] Feb, [facility] [address] [place] [id number] [place] [address] 87605- 5711 Nov, [facility] [address] [place] [id number] [place] [address] 71429- 3337 Sep, [facility] [address] [place] [address] [id number] [place] [address] 95029- 4422 Aug, [facility] [address] [place] [address] [id number] [place] [address] 98032- 7438 Aug, [facility] [address] [place] [id number] [place] [address] 97533- 9997 Jul, [facility] [address] [place] [id number] [place] [address] 00781 -3375 Jul, Back pain M54.9 [facility] [address] [place] [id number] [place] [address] 40004- 6382 Jul, [facility] [address] [place] [address] [id number] [place] [address] 91118- 7691 Jun, [facility] [address] [place] [address] [id number] [place] [address] 02382- 4424 Jun, [facility] [address] [place] [address] [id number] [place] [address] 32737- 4081 Jun, Arthritis M19.90 ; Pain in left shoulder M25.512 and Lumbar back pain M54.5 [facility] [address] [place] [id number] [address] May, [facility] [address] [place] [id number] [place] [address] 69296- 8503 Apr, [facility] [address] [place] [address] [id number] [address] 7943 Apr, [facility] [address] [place] [id number] [place] [address] 98681- 8999 08 Apr, 2017 Essential hypertension I10 and Arthritis M19.90 [place] [address] 60089- 4031 Apr, [place] [address] 51982- 0178 Mar, [place] [address] 55193- 7186 Mar, Lumbar pain M54.5 ; 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 ; Allergic rhinitis, unspecified allergic rhinitis type J30.9 and Hematuria R31.9 [place] [address] 34914- 1714 Mar, [facility] [place] [address] 17737 [address]2026 January, Open bite, right lower leg, initial encounter S81.851A and Pain in left shoulder M25.512 [facility] [place] [address] 60627 -3068 Dec, [facility] [place] [address] 59345 -1460 Dec, Low back pain M54.5 [place] [address] 55871- 6560 Aug, [facility] [place] [address] 04750 -0095 Apr, Perforated left tympanic membrane on examination H72.92 and Deafness in left ear H91.92 [place] [address] 83014- 9462 Apr, [place] [address] 57520- 1479 Mar, Lumbar back pain M54.5 ; Essential hypertension I10 ; Chronic obstructive pulmonary disease, unspecified COPD type J44.9 ; Anxiety F41.9 ; Long-term use of high-risk medication Z79.899 and Socially inappropriate behavior F99 [place] [address] 95544- 2120 Mar, [facility] [address] 46620- 6578 Mar, Low back pain M54.5 [place] [address] 62437- 3587 Mar, [facility] [address] 89881- 5672 Mar, [place] [address] 90054- 0247 Feb, Impingement syndrome, shoulder, left M75.42 and Superior glenoid labrum lesion of left shoulder, subsequent encounter S43.432D [place] [address] 41615- 8893 January, [place] [address] 62350- 3069 January, [place] [address] 09714- 6475 January, [place] [address] 12434- 3273 Dec, Impingement syndrome, shoulder, left M75.42 [place] [address] [place] [id number] [place] [address] 25760- 4101 Dec, [facility] [address] 37372- 0922 Nov, [place] [address] 82086- 2159 Nov, Essential hypertension I10 ; Pain in left shoulder M25.512 ; Amphetamine abuse F15.10 and Callus of foot L84 [place] [address] 51996- 2004 Nov, Shoulder pain, left M25.512 [facility] [address] [place] [id number] [place] [address] 80756- 8168 Nov, [facility] [address] [place] [id number] [place] [address] 82950- 4397 Nov, [facility] [address] 54822- 9813 Nov, Allergic rhinitis, unspecified allergic rhinitis type J30.9 ; Right wrist pain M25.531 ; Back pain M54.9 and Essential hypertension I10 [facility] [address] 53862- 7660 Nov, [facility] [address] [place] [id number] [place] [address] 60292- 5068 Oct, [facility] [address] 47468- 0371 Oct, Tobacco abuse Z72.0 ; Lumbar back pain M54.5 and Foot callus L84 [facility] [address] [place] [id number] [place] [address] 56407- 0700 Sep, [facility] [address] [place] [id number] [place] [address] 85294- 4301 Sep, Lumbar pain M54.5 ; Essential hypertension I10 ; COPD ( chronic obstructive pulmonary disease) J44.9 ; Anxiety F41.9 and Allergic rhinitis, unspecified allergic rhinitis type J30.9 [facility] [address] [place] [id number] [place] [address] 78696- 5031 Aug, [facility] [address] [place] [id number] [place] [address] 72156- 4870 Aug, [facility] [address] [place] [id number] [place] [address] 16276- 0739 Jul, [facility] [address] 26395- 6606 Jul, Lumbar back pain M54.5 ; Essential hypertension I10 ; COPD ( chronic obstructive pulmonary disease) J44.9 ; Anxiety F41.9 and Allergic rhinitis J30.9 [place] [address] 94439- 3339 Apr, Positive urine drug screen 796.0 and Chronic lumbar pain 724.2 [place] [address] 60003- 5697 Apr, [place] [address] 57970- 2178 Apr, [place] [address] 72347- 7384 Apr, [place] [address] 58363- 9124 Apr, Lumbago 724.2 ; Unspecified viral hepatitis C without hepatic coma 070.70 ; Unspecified disorder of skin and subcutaneous tissue 709.9 and Long-term use of high-risk medication V58.69 [place] [address] 12807- 7818 Mar, Vision changes 368.9 ; Allergic rhinitis 477.9 and Callus of foot 700 [place] [address] 48685- 5077 Mar, [place] [address] 40825- 7795 Mar, Chronic airway obstruction, not elsewhere classified 496 ; Essential hypertension, benign 401.1 ; Lumbago 724.2 ; Insomnia, unspecified 780.52 ; Anxiety state, unspecified 300.00 and Unspecified disorder of skin and subcutaneous tissue 709.9 [facility] [address] [place] [id number] [place] [address] [id number] Mar, Dental examination V72.2 [place] [address] 60250- 5775 Mar, [place] [address], [place] [address] 4888 Feb, Amphetamine and other psychostimulant dependence, unspecified abuse 304.40 [facility] [address], [place] [address] 3[address] Feb, Chronic airway obstruction, not elsewhere classified 496 ; Back pain 724.5 and Hypertension 401.9 [facility] [address] [place] [id number] [place] [address] 86059- 5959 January, Chronic airway obstruction, not elsewhere classified 496 ; Unspecified disorder of skin and subcutaneous tissue 709.9 ; Lumbago 724.2 ; Essential hypertension, benign 401.1 ; Foot callus 700 and Allergic rhinitis 477.9 [facility] [address], [place] [address]- 4971 January, [facility] [address] [place] [id number] [place] [address] 56872- 8586 January, [facility] [address] [place] [id number] [place] [address] 22737- 6941 Dec, [facility] [address] [place] [id number] [place] [address] 87333- 8401 Dec, [facility] [address], [place] [address]- 6337 Nov, [facility] [address], [place] [address]- 9692 Nov, [facility] [address], [place] [address]- 6977 Nov, [facility] [address] [place] [id number] [place] [address] 21496- 9077 Nov, [facility] [address] [address] 6930 Nov, [facility] [address] [place] [address] 66096- 7585 Nov, [facility] [place] [facility] [address] [id number] [place] [address]- 9929 16 Nov, 2014 [facility] [place] [facility] [address] [id number] [place] [address]- 8756 Nov, 2014 [facility] [place] [facility] [address] [id number] [place] [address]- 5004 Nov, 2014 [facility] [place] [facility] [address] [id number] [place] [address]- 0801 Oct, 2014 [facility] [place] [facility] [address] [id number] [place] [address]- 6438 Oct, 2014 [facility] [place] [facility] [address] [id number] [place] [address]- 5757 Oct, 2014 [facility] [place] [facility] [address] [id number] [place] [address]- 8343 Oct, 2014 [facility] [place] [facility] [address] [id number] [place] [address]- 0836 Oct, 2014 [facility] [place] [facility] [address] [id number] [place] [address]- 1318 Oct, 2014 [facility] [place] [facility] [address] [id number] [place] [address]- 7172 Oct, 2014 [facility] [place] [facility] [address] [id number] [place] [address]- 5877 Oct, 2014 [facility] [place] [facility] [address] [id number] [place] [address]- 4559 Oct, 2014 [facility] [place] [facility] [address] [id number] [place] [address]- 9440 Oct, 2014 [facility] [place] [facility] [address] [id number] [place] [address]- 8939 Oct, 2014 [facility] [place] [facility] [address] [facility] [id number] [place] [address]- 8773 Oct, 2014 [facility] [place] [facility] [address] [id number] [place] [address]- 5183 Oct, [facility] [address] [id number] [place] [address]- 2560 Sep, [facility] [address] [id number] [place] [address]- 2776 Sep, [facility] [address] [id number] [place] [address]- 2963 Sep, [facility] [address] [id number] [place] [address]- 2217 Sep, [facility] [address] [id number] [place] [address]- 2128 Sep, [facility] [address] [id number] [place] [address]- 1676 Sep, [facility] [address] [id number] [place] [address]- 7484 Sep, [facility] [address] [id number] [place] [address]- 1329 Sep, [facility] [address] [id number] [place] [address]- 2777 Aug, [facility] [address] [id number] [place] [address]- 8713 Aug, [facility] [place] [facility] [address] [id number] [place] [address]- 2541 30 Aug, 2014 [facility] [place] [facility] [address] [id number] [place] [address]- 1402 Aug, [facility] [place] [facility] [address] [id number] [place] [address]- 0463 Aug, [facility] [place] [facility] [address] [id number] [place] [address]- 9766 Aug, [facility] [address] [id number] [place] [address]- 6057 Aug, [facility] [place] [facility] [address] [id number] [place] [address]- 7487 Aug, [facility] [place] [facility] [address] [id number] [place] 6444 Aug, [facility] [place] [facility] [address] [id number] [place] 9236 Aug, [facility] [place] [facility] [address] [id number] [place] 5332 Aug, [facility] [place] [facility] [address] [id number] [place] 0402 Aug, [facility] [place] [facility] [address] [id number] [place] 4776 Aug, [facility] [place] [facility] [address] [id number] [place] 1438 Aug, [facility] [place] [facility] [address] [facility] [id number] [place] [id number] Aug, [facility] [place] [facility] [address] [id number] [place] [address]- 7661 Aug, [facility] [place] [facility] [address] [id number] [place] [address]- 2373 Jul, [facility] [place] [facility] [address] [id number] [place] [address]- 5110 Jul, [facility] [place] [facility] [address] [id number] [place] [address]- 0183 Jul, [facility] [place] [facility] [address] [id number] [place] 6878 Jul, [facility] [place] [facility] [address] [id number] [place] 8033 Jul, [facility] [place] [facility] [address] [id number] [place] 1611 Jul, [facility] [place] [facility] [address] [id number], [place] [address]- 4226 Jun, 2013 [facility] [place] [facility] [address] [id number] [place] [address]- 6185 Jun, 2013 [facility] [place] [facility] [address] [id number] [place] [address]- 7074 Jun, 2013 [facility] [place] [facility] [address] [id number] [place] [address]- 0189 Jun, [facility] [place] [facility] [address] [id number] [place] [address]- 9753 Jun, 2013 [facility] [place] [facility] [address] [id number] [place] [address]- 3758 Jun, 2013 [facility] [place] [facility] [address] [id number] [place] [address]- 5463 Jun, 2013 [facility] [place] [facility] [address] [id number] [place] [address]- 1338 Jun, [facility] [place] [facility] [address] [id number] [place] [address]- 7438 Jun, [facility] [place] [facility] [address] [id number] [place] [address]- 0858 Jun, 2013 [facility] [place] [facility] [address] [id number] [place] [address]- 4624 Jun, 2013 [facility] [place] [facility] [address] [id number], [place] [address]- 4617 Jun, 2013 [facility] [place] [facility] [address] [id number], [place] [address]- 5696 Jun, 2013 [facility] [place] [facility] [address] [id number] [place] [address]- 0646 Jun, 2013 [facility] [place] [facility] [address] [id number], [place] [address]- 9304 Jun, 2013 [facility] [place] [facility] [address] [id number] [place] [address]- 9096 Jun, 2013 [facility] [place] [facility] [address] [id number] [place] [address]- 2009 07 Jun, 2013 [facility] [place] [facility] [address] [id number] [place] [address]- 4676 Jun, [facility] [place] [facility] [address] [id number] [place] [address]- 0956 Jun, 2013 [facility] [place] [facility] [address] [id number] [place] [address]- 3242 Jun, 2013 [facility] [place] [facility] [address] [id number] [place] [address]- 7973 Jun, [facility] [place] [facility] [address] [id number] [place] [address]- 4832 Jun, [facility] [place] [facility] [address] [id number] [place] [address]- 3972 Jun, [facility] [place] [facility] [address] [id number] [place] [address]- 6603 29 May, 2013 [facility] [place] [facility] [address] [id number] [place] [address]- 6447 29 May, 2013 [facility] [place] [facility] [address] [id number] [place] [address]- 4688 26 May, 2013 [facility] [place] [facility] [address] [id number] [place] [address]- 8309 26 May, 2013 [facility] [place] [facility] [address] [id number] [place] [address]- 2543 25 May, 2013 [facility] [place] [facility] [address] [id number] [place] [address] 2547 25 May, 2013 [facility] [place] [facility] [address] [id number] [place] [address]- 7626 May, 2013 [facility] [place] [facility] [address] [id number] [place] [address]- 7116 02 May, 2013 [facility] [place] [facility] [address] [id number] [place] [address]- 1414 Apr, [facility] [place] [facility] [address] [id number] [place] [address]- 9215 Apr, [facility] [place] [facility] [address] [id number] [place] [address]- 7635 Apr, [facility] [place] [facility] [address] [id number] [place] [address]- 1041 Apr, [facility] [place] [facility] [address] [id number] [place] [address]- 3646 Apr, [facility] [place] [facility] [address] [id number] [place] [address]- 3829 Apr, [facility] [place] [facility] [address] [id number] [place] [address]- 7128 Apr, [facility] [place] [facility] [address] [id number] [place] [address]- 9156 Apr, [facility] [place] [facility] [address] [id number] [place] [address]- 5802 Apr, [facility] [place] [facility] [address] [id number] [place] [address]- 2615 Apr, [facility] [place] [facility] [address] [id number] [place] [address]- 6027 Apr, [facility] [place] [facility] [address] [id number] [place] [address]- 3547 Apr, [facility] [place] [facility] [address] [id number] [place] [address]- 2427 Apr, [facility] [place] [facility] [address] [id number] [place] [address]- 7429 Apr, [facility] [place] [facility] [address] [id number] [place] [address]- 9431 Apr, [facility] [place] [facility] [address] [id number] [place] [address]- 8780 Apr, [facility] [place] [facility] [address] [id number] [place] [address]- 9030 Apr, [facility] [place] [facility] [address] [id number] [place] [address]- 5320 Apr, [facility] [place] [facility] [address] [id number] [place] [address]- 6466 Apr, [facility] [place] [facility] [address] [id number] [place] [address]- 1255 Apr, [facility] [place] [facility] [address] [id number] [place] [address]- 8653 Apr, [facility] [place] [facility] [address] [id number] [place] [address]- 5196 Apr, [facility] [place] [facility] [address] [id number] [place] [address]- 1736 Mar, [facility] [place] [facility] [address] [id number] [place] [address]- 2764 Mar, [facility] [place] [facility] [address] [id number] [place] [address]- 4895 Mar, [facility] [place] [facility] [address] [id number] [place] [address]- 2377 Mar, [facility] [place] [facility] [address] [id number] [place] [address]- 6925 Mar, [facility] [place] [facility] [address] [id number] [place] [address]- 9619 Mar, [facility] [place] [facility] [address] [id number] [place] [address] Mar, [facility] [place] [facility] [address] [id number] [place] [address] Mar, [facility] [place] [facility] [address] [id number] [place] [address] Feb, [facility] [place] [facility] [address] [id number] [place] [address] Feb, [facility] [place] [facility] [address] [id number] [place] [address] Feb, [facility] [place] [facility] [address] [id number] [place] [address] Feb, [facility] [place] [facility] [address] [id number] [place] [address] Feb, [facility] [place] [facility] [address] [id number] [place] [address] Feb, [facility] [place] [facility] [address] [id number] [place] [address] Feb, [facility] [place] [facility] [address] [id number] [place] [address] January, [facility] [place] [facility] [address] [id number] [place] [address] January, [facility] [place] [facility] [address] [id number] [place] [address] January, [facility] [place] [facility] [address] [id number] [place] [address] January, [facility] [place] [facility] [address] [id number] [place] [address] Dec, [facility] [place] [facility] [address] [id number] [place] [address] Dec, [facility] [place] [facility] [address] [id number] [place] [address] Dec, [facility] [place] [facility] [address] [id number] [place] [address] Dec, [facility] [place] [facility] [address] [id number] [place] [address] Dec, [facility] [place] [facility] [address] [id number] [place] [address] Dec, [facility] [place] [facility] [address] [id number] [place] [address] 17 Dec, 2013 [facility] [place] [facility] [address] [id number] [place] [address] 17 Dec, 2013 [facility] [place] [facility] [address] [id number] [place] [address] 15 Dec, 2013 [facility] [place] [facility] [address] [facility] [id number] [place] [address] Dec, [facility] [place] [facility] [address] [facility] [id number] [place] [address] Nov, [facility] [place] [facility] [address] [id number] [place] [address] Nov, [facility] [place] [facility] [address] [facility] [id number] [place] [address] Nov, [facility] [place] [facility] [address] [facility] [id number] [place] [address] Nov, [facility] [place] [facility] [address] [facility] [id number] [place] [address] Oct, [facility] [place] [facility] [address] [facility] [id number] [place] [address] Oct, [facility] [place] [facility] [address] [facility] [id number] [place] [address] Oct, [facility] [place] [facility] [address] [facility] [id number], [place] [address] Oct, [facility] [place] [facility] [address] [facility] [id number], [place] [address] Oct, [facility] [place] [facility] [address] [facility] [id number] [place] [address] Oct, [facility] [place] [facility] [address] [facility] [id number] [address] 06 Oct, 2013 [facility] [place] [facility] [address] [id number] [address] Oct, [facility] [place] [facility] [address] [id number] [place] [address] Sep, [facility] [place] [facility] [address] [id number] [place] [address] Sep, [facility] [place] [facility] [address] [id number] [place] [address] Sep, [facility] [place] [facility] [address] [id number] [place] [address] Sep, [facility] [place] [facility] [address] [id number] [place] [address] Aug, [facility] [place] [facility] [address] [id number] [place] [address] Aug, [facility] [place] [facility] [address] [id number] [place] [address] Aug, [facility] [place] [facility] [address] [id number] [place] [address]- [address] Aug, [facility] [place] [facility] [address] [id number] [place] [address] Jul, [facility] [place] [facility] [address] [id number] [place] [address] Jul, [facility] [place] [facility] [address] [id number] [place] [address] Jul, [facility] [place] [facility] [address] [id number] [place] [address] Jul, [facility] [place] [facility] [address] [id number] [place] [address] Jun, [facility] [place] [facility] [address] [id number] [place] [address] Jun, [facility] [place] [facility] [address] [id number] [place] [address] 14 Jun, 2013 [facility] [place] [facility] [address] [id number] [place] [address] 14 Jun, 2013 [facility] [place] [facility] [address] [id number] [place] [address] Jun, [facility] [place] [facility] [address] [id number] [place] [address] Jun, [facility] [place] [facility] [address] [id number] [place] [address] Jun, [facility] [place] [facility] [address] [id number] [place] [address] May, [facility] [place] [facility] [address] [id number] [place] [address] May, [facility] [place] [facility] [address] [id number] [place] [address] May, [facility] [place] [facility] [address] [id number] [place] [address] Apr, [facility] [place] [facility] [address] [id number] [place] [address] Apr, [facility] [place] [facility] [address] [id number] [place] [address] Apr, [facility] [place] [facility] [address] [id number] [place] [address] Apr, [facility] [place] [facility] [address] [id number] [place] [address] Apr, [facility] [place] [facility] [address] [id number], [place] [address] Mar, [facility] [place] [facility] [address] [id number] [place] [address] Mar, [facility] [place] [facility] [address] [id number] [place] [address] Mar, [facility] [place] [facility] [address] [id number] [place] [address] Mar, [facility] [place] [facility] [address] [id number] [place] [address] Mar, [facility] [address] [id number] [place] [address] Mar, [facility] [address] [id number] [place] [address] Feb, [facility] [address] [id number] [place] [address] Feb, [facility] [address] [id number] [place] [address] Feb, [facility] [address] [id number] [place] [address] Feb, [facility] [address] [id number] [place] [address] Feb, [facility] [address] [id number] [place] [address] Feb, [facility] [address] [id number] [place] [address] Feb, [facility] [address] [id number] [place] [address] Feb, [facility] [address] [id number] [place] [address] Feb, [facility] [address] [id number] [place] [address] January, [facility] [address] [id number] [place] [address] January, [facility] [place] [facility] [address] [id number] [place] [address] January, [facility] [place] [facility] [address] [id number] [place] [address] January, [facility] [address] [id number] [place] [address] January, [facility] [address] [id number] [place] [address] January, [facility] [address] [id number] [place] [address] January, [facility] [address] [id number] [place] [address] January, [facility] [address] [id number] [place] [address] January, [facility] [address] [id number] [place] [address] January, [facility] [address] [id number] [place] [address] Dec, [facility] [address] [id number] [place] [address] Dec, [facility] [address] [id number] [place] [address] Dec, [facility] [address] [id number] [place] [address] Dec, [facility] [address] [id number] [place] [address] Dec, [facility] [address] [id number] [place] [address] Dec, [facility] [address] [id number], [place] [address] Nov, [facility] [address] [id number] [place] [address] Nov, [facility] [place] [facility] [address] [id number] [place] [address] Nov, [facility] [place] [facility] [address] [id number] [place] [address] Oct, [facility] [address] [id number] [place] [address] Oct, [facility] [address] [facility] [id number] [place] [address] Oct, [facility] [address] [facility] [id number], [place] [address] Oct, [facility] [address] [facility] [id number], [place] [address] Oct, [facility] [address] [facility] [id number] [address] Jun, IMMUNIZATIONS No Known Immunizations SOCIAL HISTORY Never Assessed REASON FOR VISIT shelter PLAN OF CARE VITAL SIGNS Height 71 in 2018-04-10 Weight 166 lbs 2018-04-10 Heart Rate 90 bpm 2018-04-10 Respiratory Rate 16 2018-04-10 BMI 23.15 kg/m2 2018-04-10 Blood pressure systolic 110 mmHg 2018-04-10 Blood pressure diastolic 70 mmHg 2018-04-10 MEDICATIONS Medication Instructions Dosage Frequency Start Date End Date Duration Status HydrOXYzine HCl 25 MG Orally at bedtime 1 tablet Mar, [...]
--- OUTSIDE RECORDS SUMMARY | 2018-11-29 19:22 | XMS REPORT ---
Author Author FRANK MULLINS Organization [facility] Address [address] [place] [address] Care Team Providers Care Telemetry Registered Nurse Name Role Phone FRANK MULLINS Unavailable PROBLEMS Type Condition ICD9-CM Code ANS05-CV Code Onset Dates Condition Status SNOMED Code Problem Back pain M54.9 Active 440649365 Problem Amphetamine abuse F15.10 Active 60564835 Problem Pain in left shoulder M25.512 Active 12136940 Problem COPD (chronic obstructive pulmonary disease) J44.9 Active 49126092 Problem Anxiety F41.9 Active 20150903 Problem Essential hypertension I10 Active 92543874 Problem Mood disorder F39 Active 55268491 Problem Other chronic pain G89.29 Active 23103231 Problem 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 Active 5852646 Problem Socially inappropriate behavior F99 Active 648327766 Problem Seasonal allergic rhinitis due to other allergic trigger J30.89 Active 180420956 Problem Arthritis M19.90 Active 2478629 ALLERGIES Substance Reaction Event Type Date Status Sulfamethoxazole-Trimethoprim Unknown Drug Allergy Feb, Active ENCOUNTERS Encounter Location Date Diagnosis [facility] [address], [place] [address] Apr, Lumbar back pain M54.5 and Mood disorder F39 [facility] [id number] [place] [address] 60247- 3017 Apr, Mood disorder F39 [facility] [address] [place] [id number] Mar, Mood disorder F39 and Lumbosacral pain M54.5 [facility] [address] [place] [place] [id number] Feb, Low back pain M54.5 ; Other chronic pain G89.29 and Seasonal allergic rhinitis due to other allergic trigger J30.89 [facility] [id number] [place] [address] 75806 -0562 Feb, [facility] [address], [place] [address] 4[address] Nov, [facility] [address], [place] [address] 98[address] Sep, [facility] [address] [address] [address] Aug, [facility] [id number] [place] [address] 11601- 7662 Aug, [facility] [address] [place] [address] Jul, [facility] [id number] [place] [address] 94370 -8214 Jul, Back pain M54.9 [facility] [id number] [place] [address] 80439- 5065 Jul, [facility] [address], [place] [address] Jun, [facility] [id number] [place] [address] 84770- 5445 Jun, [facility] [address], [place] [address] Jun, Arthritis M19.90 ; Pain in left shoulder M25.512 and Lumbar back pain M54.5 [facility] [address], [place] [address] 2[address] May, [facility] [address], [place] [address] 2[address] Apr, [facility] [address], [place] [address] 0469 Apr, [facility] [address], [place] [address] Apr, Essential hypertension I10 and Arthritis M19.90 [facility] [id number] [place] [address] 34250- 5661 Apr, [place] [id number] [place] [address] 64702- 7216 Mar, [place] [id number] [place] [address] 17121- 2067 Mar, Lumbar pain M54.5 ; 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 ; Allergic rhinitis, unspecified allergic rhinitis type J30.9 and Hematuria R31.9 [place] [id number] [place] [address] 66914- 6302 Mar, [facility] [address] [address] January, Open bite, right lower leg, initial encounter S81.851A and Pain in left shoulder M25.512 [facility] [address] 5[address] -2137 Dec, [facility] [place] [id number] [place] [address] 54364 -2311 Dec, Low back pain M54.5 [place] [id number] [place] [address] 09643- 5542 Aug, [facility] [place] [id number] [place] [address] 00332 -6880 Apr, Perforated left tympanic membrane on examination H72.92 and Deafness in left ear H91.92 [place] [id number] [place] [address] 75918- 3418 Apr, [place] [address] [address]40- 7858 Mar, Lumbar back pain M54.5 ; Essential hypertension I10 ; Chronic obstructive pulmonary disease, unspecified COPD type J44.9 ; Anxiety F41.9 ; Long-term use of high-risk medication Z79.899 and Socially inappropriate behavior F99 [place] [address] [place] [address]- 2125 Mar, [facility] [id number] [place] [address] 95549- 9763 Mar, Low back pain M54.5 [facility] [id number] [place] [address] 10592- 1264 Mar, [facility] [id number] [place] [address] 63314- 9635 Mar, [facility] [id number] [place] [address] 88204- 5899 Feb, Impingement syndrome, shoulder, left M75.42 and Superior glenoid labrum lesion of left shoulder, subsequent encounter S43.432D [facility] [id number] [place] [address] 60846- 0603 January, [facility] [address] [address]67- 1417 January, [facility] [id number] [place] [address] 36647- 5279 January, [facility] [id number] [place] [address] 21665- 5879 Dec, Impingement syndrome, shoulder, left M75.42 [facility] [id number] [place] [address] 60611- 8850 Dec, [facility] [id number] [place] [address] 95540- 7883 Nov, [facility] [id number] [place] [address] 80431- 7399 Nov, Essential hypertension I10 ; Pain in left shoulder M25.512 ; Amphetamine abuse F15.10 and Callus of foot L84 [facility] [address] [place] [address] 54991- 9088 Nov, Shoulder pain, left M25.512 [facility] [id number] [place] [address] 42017- 9730 14 Nov, 2015 [facility] [id number] [place] [address] 84096- 9860 Nov, [facility] [id number] [place] [address] 66998- 9121 Nov, Allergic rhinitis, unspecified allergic rhinitis type J30.9 ; Right wrist pain M25.531 ; Back pain M54.9 and Essential hypertension I10 [facility] [id number] [place] [address] 07045- 4890 Nov, [facility] [address] 93775- 0227 Oct, [facility] [address] 52641- 3031 Oct, Tobacco abuse Z72.0 ; Lumbar back pain M54.5 and Foot callus L84 [facility] [id number] [place] [address] 09910- 1898 Sep, [facility] [id number] [place] [address] 61113- 6869 Sep, Lumbar pain M54.5 ; Essential hypertension I10 ; COPD ( chronic obstructive pulmonary disease) J44.9 ; Anxiety F41.9 and Allergic rhinitis, unspecified allergic rhinitis type J30.9 [facility] [id number] [place] [address] 47418- 6502 Aug, [facility] [id number] [place] [address] 51030- 8514 Aug, [facility] [id number] [place] [address] 12707- 1771 Jul, [facility] [id number] [place] [address] 30259- 9488 Jul, Lumbar back pain M54.5 ; Essential hypertension I10 ; COPD ( chronic obstructive pulmonary disease) J44.9 ; Anxiety F41.9 and Allergic rhinitis J30.9 [place] [address] [place] [address] 89161- 9147 Apr, Positive urine drug screen 796.0 and Chronic lumbar pain 724.2 [place] [id number] [place] [address] 70616- 3079 Apr, [facility] [id number] [place] [address] 40853- 5884 Apr, [place] [id number] [place] [address] 87319- 0989 Apr, [place] [address] 86069- 3998 Apr, Lumbago 724.2 ; Unspecified viral hepatitis C without hepatic coma 070.70 ; Unspecified disorder of skin and subcutaneous tissue 709.9 and Long-term use of high-risk medication V58.69 [place] [id number] [place] [address] 23709- 5841 Mar, Vision changes 368.9 ; Allergic rhinitis 477.9 and Callus of foot [address] [id number] [place] [address] 76067- 1942 Mar, [place] [id number] [place] [address] 46347- 7417 Mar, Chronic airway obstruction, not elsewhere classified 496 ; Essential hypertension, benign 401.1 ; Lumbago 724.2 ; Insomnia, unspecified 780.52 ; Anxiety state, unspecified 300.00 and Unspecified disorder of skin and subcutaneous tissue 709.9 [facility] [address] [place] [address] [id number] Mar, Dental examination V72.2 [place] [id number] [place] [address] 75400- 1665 Mar, [facility] [id number] [place] [address] 97012- 3101 Feb, Amphetamine and other psychostimulant dependence, unspecified abuse 304.40 [facility] [address], [place] [address]- 0325 Feb, Chronic airway obstruction, not elsewhere classified 496 ; Back pain 724.5 and Hypertension 401.9 [facility] [address], [place] [address]- 4300 January, Chronic airway obstruction, not elsewhere classified 496 ; Unspecified disorder of skin and subcutaneous tissue 709.9 ; Lumbago 724.2 ; Essential hypertension, benign 401.1 ; Foot callus 700 and Allergic rhinitis 477.9 [facility] [address], [place] [address]- 0410 January, [facility] [id number] [place] [address] 66507- 5560 January, [facility] [id number] [place] [address] 62104- 0260 Dec, [facility] [address], [place] [address]- 4290 Dec, [facility] [address], [place] [address]- 7904 Nov, [facility] [address], [place] [address]- 1148 Nov, [facility] [address], [place] [address]- 6476 Nov, [facility] [address], [place] [address]- 8999 Nov, [facility] [address], [place] [address]- 6071 Nov, [facility] [address], [place] [address]- 2872 Nov, [facility] [address], [place] [address]- 5556 16 Nov, 2014 [facility] [address] [place] [address]- 1792 Nov, 2014 [facility] [place] [facility] [address] [id number] [place] [address]- 8838 Nov, [facility] [place] [facility] [address] [id number] [place] [address]- 8740 Oct, 2014 [facility] [place] [facility] [address] [id number] [place] [address]- 5851 Oct, 2014 [facility] [place] [facility] [address] [id number] [place] [address]- 2526 Oct, 2014 [facility] [place] [facility] [address] [id number] [place] [address]- 6829 Oct, 2014 [facility] [place] [facility] [address] [id number] [place] [address]- 8595 Oct, 2014 [facility] [place] [facility] [address] [id number] [place] [address]- 0706 Oct, 2014 [facility] [place] [facility] [address] [id number] [place] [address]- 2465 Oct, 2014 [facility] [place] [facility] [address] [facility] [id number] [place] [address]- 0068 Oct, 2014 [facility] [place] [facility] [address] [facility] [id number] [place] [address]- 2086 Oct, 2014 [facility] [place] [facility] [address] [id number], [place] [address]- 3733 Oct, 2014 [facility] [place] [facility] [address] [id number] [place] [address]- 8561 Oct, 2014 [facility] [place] [facility] [address] [id number] [place] [address]- 2692 Oct, 2014 [facility] [place] [facility] [address] [facility] [id number] [place] [address]- 1057 Oct, 2014 [facility] [place] [facility] [address] [facility] [id number] [place] [address]- 5000 Sep, [facility] [address] [id number] [place] [address]- 5397 Sep, [facility] [place] [facility] [address] [id number] [place] [address]- 9877 Sep, [facility] [place] [facility] [address] [id number] [place] [address]- 7035 Sep, [facility] [place] [facility] [address] [id number] [place] [address]- 6160 Sep, [facility] [place] [facility] [address] [id number] [place] [address]- 3751 Sep, [facility] [place] [facility] [address] [id number] [place] [address]- 2011 Sep, [facility] [address] [id number] [place] [address]- 9165 Sep, [facility] [place] [facility] [address] [id number] [place] [address]- 6426 Aug, [facility] [place] [facility] [address] [id number] [place] [address]- 6075 Aug, [facility] [place] [facility] [address] [id number] [place] [address]- 2895 Aug, [facility] [place] [facility] [address] [id number] [place] [address]- 3742 Aug, [facility] [place] [facility] [address] [id number] [place] [address]- 0384 Aug, [facility] [place] [facility] [address] [id number] [place] [address]- 6560 Aug, [facility] [place] [facility] [address] [id number] [place] [address]- 4320 Aug, [facility] [place] [facility] [address] [id number] [place] 8922 Aug, [facility] [place] [facility] [address] [id number] [place] [address]- 7714 Aug, [facility] [place] [facility] [address] [id number] [place] [address]- 8662 Aug, [facility] [place] [facility] [address] [id number] [place] [address]- 1848 Aug, [facility] [place] [facility] [address] [id number] [place] [address]- 1891 Aug, [facility] [place] [facility] [address] [id number] [place] [address]- 3444 Aug, [facility] [place] [facility] [address] [id number] [place] [address]- 3620 Aug, [facility] [place] [facility] [address] [id number] [place] [address] Aug, [facility] [place] [facility] [address] [id number] [place] 3584 Aug, [facility] [place] [facility] [address] [id number] [place] [address]- 9228 Jul, [facility] [place] [facility] [address] [id number] [place] [address]- 2548 Jul, [facility] [place] [facility] [address] [id number] [place] [address]- 4760 Jul, [facility] [place] [facility] [address] [id number] [place] [address]- 4531 Jul, [facility] [place] [facility] [address] [id number] [place] [address]- 7523 Jul, [facility] [place] [facility] [address] [id number] [place] [address]- 9029 Jul, [facility] [place] [facility] [address] [id number] [place] [address]- 8786 Jun, [facility] [place] [facility] [address] [id number] [place] [address]- 5293 Jun, [facility] [place] [facility] [address] [id number] [place] [address]- 1335 Jun, [facility] [place] [facility] [address] [id number] [place] [address]- 6333 Jun, [facility] [place] [facility] [address] [id number] [place] [address]- 6651 Jun, [facility] [place] [facility] [address] [id number] [place] [address]- 8010 Jun, [facility] [place] [facility] [address] [id number] [place] [address]- 2460 Jun, [facility] [place] [facility] [address] [id number] [place] [address]- 4629 Jun, [facility] [place] [facility] [address] [id number] [place] [address]- 1870 Jun, [facility] [place] [facility] [address] [id number] [place] [address]- 4150 Jun, [facility] [place] [facility] [address] [id number] [place] [address]- 3707 Jun, [facility] [place] [facility] [address] [id number], [place] [address]- 9599 Jun, 2013 [facility] [place] [facility] [address] [id number], [place] [address]- 2897 Jun, 2013 [facility] [place] [facility] [address] [id number], [place] [address]- 5239 Jun, 2013 [facility] [place] [facility] [address] [id number] [place] [address]- 1394 Jun, [facility] [place] [facility] [address] [id number], [place] [address]- 2833 Jun, 2013 [facility] [place] [facility] [address] [id number], [place] [address]- 1439 Jun, 2013 [facility] [place] [facility] [address] [id number] [place] [address]- 8696 Jun, [facility] [place] [facility] [address] [id number] [place] [address]- 9850 Jun, [facility] [place] [facility] [address] [id number] [place] [address]- 0566 Jun, [facility] [place] [facility] [address] [id number] [place] [address]- 5689 Jun, [facility] [place] [facility] [address] [id number] [place] [address]- 3137 Jun, [facility] [place] [facility] [address] [id number] [place] [address]- 1723 Jun, [facility] [place] [facility] [address] [id number] [place] [address]- 4627 May, [facility] [place] [facility] [address] [id number] [place] [address]- 3141 29 May, 2014 [facility] [place] [facility] [address] [id number] [place] [address]- 4394 May, [facility] [place] [facility] [address] [id number] [place] [address]- 5070 May, [facility] [place] [facility] [address] [id number] [place] [address]- 1888 May, [facility] [place] [facility] [address] [id number] [place] [address]- 3695 May, [facility] [place] [facility] [address] [id number] [place] [address]- 2541 May, [facility] [place] [facility] [address] [id number] [place] [address]- 1091 May, [facility] [place] [facility] [address] [id number] [place] [address]- 6587 Apr, [facility] [place] [facility] [address] [id number] [place] [address]- 2730 Apr, [facility] [place] [facility] [address] [id number] [place] [address]- 3621 Apr, [facility] [place] [facility] [address] [id number] [place] [address]- 2265 Apr, [facility] [place] [facility] [address] [id number] [place] [address]- 1645 Apr, [facility] [place] [facility] [address] [id number] [place] [address]- 8687 Apr, [facility] [place] [facility] [address] [id number] [place] [address]- 6834 Apr, [facility] [place] [facility] [address] [id number] [place] [address]- 7699 Apr, [facility] [place] [facility] [address] [id number] [place] [address]- 8503 Apr, [facility] [place] [facility] [address] [id number] [place] [address]- 3406 Apr, [facility] [place] [facility] [address] [id number] [place] [address]- 0209 Apr, [facility] [place] [facility] [address] [id number] [place] [address]- 7563 Apr, [facility] [place] [facility] [address] [id number] [place] [address]- 2557 Apr, [facility] [place] [facility] [address] [id number] [place] [address]- 9913 Apr, [facility] [place] [facility] [address] [id number] [place] [address]- 5568 Apr, [facility] [place] [facility] [address] [id number] [place] [address]- 5876 Apr, [facility] [place] [facility] [address] [id number] [place] [address] Apr, [facility] [place] [facility] [address] [id number] [place] [address] Apr, [facility] [place] [facility] [address] [id number] [place] [address] Apr, [facility] [place] [facility] [address] [id number] [place] [address] Apr, [facility] [place] [facility] [address] [id number] [place] [address] Apr, [facility] [place] [facility] [address] [id number] [place] [address] Apr, [facility] [place] [facility] [address] [id number] [place] [address] Mar, [facility] [place] [facility] [address] [id number] [place] [address] Mar, [facility] [place] [facility] [address] [id number] [place] [address] Mar, [facility] [place] [facility] [address] [id number] [place] [address] Mar, [facility] [place] [facility] [address] [id number] [place] [address] Mar, [facility] [place] [facility] [address] [id number] [place] [address] Mar, [facility] [place] [facility] [address] [id number] [place] [address] Mar, [facility] [place] [facility] [address] [id number] [place] [address] Mar, [facility] [place] [facility] [address] [id number] [place] [address] Feb, [facility] [place] [facility] [address] [id number] [place] [address] Feb, [facility] [place] [facility] [address] [id number] [place] [address] Feb, [facility] [place] [facility] [address] [id number] [place] [address] Feb, [facility] [address] [id number] [place] [address] Feb, [facility] [address] [id number] [place] [address] Feb, [facility] [address] [id number] [place] [address] Feb, [facility] [address] [id number] [place] [address] January, [facility] [address] [id number] [place] [address] January, [facility] [address] [id number] [place] [address] January, [facility] [address] [id number] [place] [address] January, [facility] [address] [id number] [place] [address] Dec, [facility] [place] [facility] [address] [id number] [place] [address] Dec, [facility] [address] [id number] [place] [address] Dec, [facility] [place] [facility] [address] [id number] [place] [address] Dec, [facility] [place] [facility] [address] [id number] [place] [address] Dec, [facility] [place] [facility] [address] [id number] [place] [address] Dec, [facility] [place] [facility] [address] [id number] [place] [address] Dec, [facility] [place] [facility] [address] [id number] [place] [address] Dec, [facility] [place] [facility] [address] [id number] [place] [address] Dec, [facility] [place] [facility] [address] [id number] [place] [address] Dec, [facility] [place] [facility] [address] [id number] [place] [address] Nov, [facility] [place] [facility] [address] [id number] [place] [address] Nov, [facility] [place] [facility] [address] [id number] [place] [address] Nov, [facility] [place] [facility] [address] [id number] [place] [address] Nov, [facility] [place] [facility] [address] [facility] [id number] [place] [address] Oct, [facility] [place] [facility] [address] [id number] [place] [address] Oct, [facility] [place] [facility] [address] [id number] [place] [address] Oct, [facility] [place] [facility] [address] [facility] [id number] [place] [address] Oct, [facility] [place] [facility] [address] [facility] [id number] [place] [address] Oct, [facility] [place] [facility] [address] [id number] [place] [address] Oct, [facility] [place] [facility] [address] [id number] [place] [address] Oct, [facility] [place] [facility] [address] [facility] [id number] [place] [address] Oct, [facility] [place] [facility] [address] [facility] [id number] [place] [address] Sep, [facility] [place] [facility] [address] [id number] [place] [address] 18 Sep, 2013 [facility] [address] [id number] [place] [address] Sep, [facility] [address] [id number] [place] [address] Sep, [facility] [address] [id number] [place] [address] 06 Aug, 2013 [facility] [address] [id number] [place] [address]65 Aug, [facility] [address] [id number] [place] [address] Aug, [facility] [address] [id number] [place] [address] Aug, [facility] [address] [id number] [place] [address] Jul, [facility] [address] [id number] [place] [address] 14[address] Jul, [facility] [address] [id number] [place] [address] Jul, [facility] [address] [facility] [id number] [place] [address] Jul, [facility] [place] [facility] [address] [id number] [place] [address] Jun, [facility] [address] [id number] [place] [address]- [address] 22 Jun, 2013 [facility] [place] [facility] [address] [id number] [place] [address]- [address] 14 Jun, 2013 [facility] [place] [facility] [address] [id number] [place] [address]- [address] 14 Jun, 2013 [facility] [place] [facility] [address] [id number] [place] [address]- [address] Jun, [facility] [place] [facility] [address] [id number] [place] [address]- 1127 Jun, [facility] [place] [facility] [address] [id number] [place] [address] Jun, [facility] [place] [facility] [address] [id number] [place] [address] 8417 May, [facility] [place] [facility] [address] [id number] [place] [address]- 1152 May, [facility] [place] [facility] [address] [id number] [place] [address]- [address] May, [facility] [place] [facility] [address] [id number] [place] [address]- 77[address] Apr, [facility] [place] [facility] [address] [id number] [place] [address]- 1029 Apr, [facility] [place] [facility] [address] [id number] [place] [address]- [address] Apr, [facility] [place] [facility] [address] [id number] [place] [address]- 34[address] Apr, [facility] [place] [facility] [address] [id number] [place] [address]- 9449 Apr, [facility] [place] [facility] [address] [id number] [place] [address] Mar, [facility] [place] [facility] [address] [id number], [place] [address] Mar, [facility] [place] [facility] [address] [id number] [place] [address]- [address] Mar, [facility] [place] [facility] [address] [id number] [place] [address]- [address] Mar, [facility] [place] [facility] [address] [id number], [place] [address] Mar, [facility] [place] [facility] [address] [id number] [place] [address]- 0646 Mar, [facility] [address] [id number] [place] [address]- 240[address] Feb, [facility] [place] [facility] [address] [id number] [place] [address]- [address]48 Feb, [facility] [place] [facility] [address] [id number] [place] [address]- 8898 Feb, [facility] [place] [facility] [address] [id number] [place] [address]- 2554 Feb, [facility] [place] [facility] [address] [id number] [place] [address]- 7900 Feb, [facility] [place] [facility] [address] [id number] [place] [address]- 2368 Feb, [facility] [address] [id number] [place] [address]- 7276 Feb, [facility] [place] [facility] [address] [id number] [place] [address]- 1405 Feb, [facility] [place] [facility] [address] [id number] [place] [address]- [address]157 Feb, [facility] [place] [facility] [address] [id number] [place] [address]- 5578 January, [facility] [place] [facility] [address] [id number] [place] [address]- 65[address] January, [facility] [place] [facility] [address] [id number] [place] [address]- 6538 January, [facility] [place] [facility] [address] [id number] [place] [address]- 0445 January, [facility] [place] [facility] [address] [id number] [place] [address]- 6978 January, [facility] [place] [facility] [address] [id number] [place] [address]- 9495 January, [facility] [place] [facility] [address] [id number] [place] [address]- [address]208 17 Jan, 2013 [facility] [address] [id number] [place] [address]- 4423 January[facility] [address] [id number] [place] [address]- 46[address] January, [facility] [address] [id number] [place] [address]- 4675 January, [facility] [address] [id number] [place] [address]- 9984 Dec, [facility] [address] [id number] [place] [address]- 8257 Dec, [facility] [address] [id number] [place] [address]- 1329 Dec, [facility] [address] [id number] [place] [address]- 4758 Dec, [facility] [address] [id number] [place] [address]- 8781 Dec, [facility] [address] [id number] [place] [address]- 1339 Dec, [facility] [address] [id number] [place] [address]- 9568 Nov, [facility] [address] [id number] [place] [address]- 9235 Nov, [facility] [address] [id number] [place] [address]- 8548 Nov, [facility] [place] [facility] [address] [id number] [place] [address] Oct, [facility] [place] [facility] [address] [id number] [place] [address]- 9785 Oct, [facility] [place] [facility] [address] [id number] [place] [address]- 8634 Oct, [facility] [address] [facility] [id number] [place] [address]- [address] Oct, [facility] [address] [facility] [id number] [place] [address]- [address] Oct, [facility] [address] [facility] [id number] [place] [address]- [address] Jun, IMMUNIZATIONS No Known Immunizations SOCIAL HISTORY Never Assessed REASON FOR VISIT ASSISTED PLAN OF CARE VITAL SIGNS Height 71 in 2018-03-13 Weight 153 lbs 2018-03-13 Heart Rate 88 bpm 2018-03-13 Respiratory Rate 16 2018-03-13 BMI 21.34 kg/m2 2018-03-13 Blood pressure systolic 104 mmHg 2018-03-13 Blood pressure diastolic 60 mmHg 2018-03-13 MEDICATIONS Medication Instructions Dosage Frequency Start Date End Date Duration Status PredniSONE 20 mg Orally Once a day 2 tablets 24h Feb, Mar, 05 days Active Meloxicam 7.5 MG Orally twice a day 1 tablet 12h Feb, Mar, 30 day(s) Active RESULTS No Results PROCEDURES Procedure Date Ordered Result Body Site [facility] VISIT ESTABLISHED PATIENT March 13, 2018 INSTRUCTIONS MEDICATIONS ADMINISTERED No Known Medications MEDICAL [...]
--- OUTSIDE RECORDS SUMMARY | 2018-11-29 19:22 | XMS REPORT ---
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 Name Role Phone TANNER KARIE Unavailable PROBLEMS Type Condition ICD9-CM Code JFX29-MB Code Onset Dates Condition Status SNOMED Code Problem Back pain M54.9 Active 703615836 Problem Amphetamine abuse F15.10 Active 74414486 Problem Pain in left shoulder M25.512 Active 49013526 Problem COPD (chronic obstructive pulmonary disease) J44.9 Active 93961305 Problem Anxiety F41.9 Active 82191543 Problem Essential hypertension I10 Active 56047842 Problem Mood disorder F39 Active 61019822 Problem Other chronic pain G89.29 Active 48271363 Problem 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 Active 3467380 Problem Socially inappropriate behavior F99 Active 776565727 Problem Seasonal allergic rhinitis due to other allergic trigger J30.89 Active 683598723 Problem Arthritis M19.90 Active 8105317 ALLERGIES No Information ENCOUNTERS Encounter Location Date Diagnosis [facility] [id number] [place] [address] 14578- 8369 Apr, Lumbar back pain M54.5 and Mood disorder F39 [facility] [id number] [place] [address] 65671- 8608 Apr, Mood disorder F39 [facility] [address] [place] [id number] Mar, Mood disorder F39 and Lumbosacral pain M54.5 [facility] [address] [place] [address] Feb, Low back pain M54.5 ; Other chronic pain G89.29 and Seasonal allergic rhinitis due to other allergic trigger J30.89 [facility] [id number] [place] [address] 56279 -9265 Feb, [facility] [address], [place] [address] 52[address] Nov, [facility] [id number] [place] [address] 90760- 4285 Sep, [facility] [address] [address] 9353 Aug, [facility] [id number] [place] [address] 16911- 3534 Aug, [facility] [id number] [place] [address] 52719- 7771 Jul, [facility] [id number] [place] [address] 62162 -0873 Jul, Back pain M54.9 [facility] [id number] [place] [address] 05075- 5738 Jul, [facility] [id number] [place] [address] 22347- 1327 Jun, [facility] [id number] [place] [address] 78163- 2212 Jun, [facility] [id number] [place] [address] 57589- 5040 Jun, Arthritis M19.90 ; Pain in left shoulder M25.512 and Lumbar back pain M54.5 [facility] [address], [place] [address] May, [facility] [address] [address] 0977 Apr, [facility] [id number] [place] [address] 57727- 9674 Apr, [facility] [id number] [address] 2182 Apr, Essential hypertension I10 and Arthritis M19.90 [facility] [id number] [place] [address] 92000- 5963 Apr, [facility] [id number] [place] [address] 78355- 4888 Mar, [place] [address] 59704- 3625 Mar, Lumbar pain M54.5 ; 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 ; Allergic rhinitis, unspecified allergic rhinitis type J30.9 and Hematuria R31.9 [facility] [id number] [place] [address] 91961- 9001 Mar, [facility] [address] [address] January, Open bite, right lower leg, initial encounter S81.851A and Pain in left shoulder M25.512 [facility] [address] 66[address]1648 Dec, [facility] [place] [id number] [place] [address] 99288 -1088 Dec, Low back pain M54.[address] 9[address]10- 3583 Aug, [facility] [id number] [place] [address] 58830 -1568 Apr, Perforated left tympanic membrane on examination H72.92 and Deafness in left ear H91.92 [facility] [id number] [place] [address] 42467- 2884 Apr, [facility] [id number] [place] [address] 74791- 9591 Mar, Lumbar back pain M54.5 ; Essential hypertension I10 ; Chronic obstructive pulmonary disease, unspecified COPD type J44.9 ; Anxiety F41.9 ; Long-term use of high-risk medication Z79.899 and Socially inappropriate behavior F99 [facility] [id number] [place] [address] 28970- 1261 Mar, [facility] [id number] [place] [address] 40223- 2175 Mar, Low back pain M54.5 [facility] [id number] [place] [address] 26490- 1946 Mar, [facility] [id number] [place] [address] 45562- 1904 Mar, [facility] [id number] [place] [address] 57763- 1736 Feb, Impingement syndrome, shoulder, left M75.42 and Superior glenoid labrum lesion of left shoulder, subsequent encounter S43.432D [facility] [id number] [place] [address] 77929- 4079 January, [facility] [id number] [place] [address] 84471- 5506 January, [facility] [id number] [place] [address] 75526- 9317 January, [facility] [address] 15108- 6400 Dec, Impingement syndrome, shoulder, left M75.42 [facility] [id number] [place] [address] 12140- 2044 Dec, [facility] [id number] [place] [address] 98537- 7268 Nov, [facility] [id number] [place] [address] 36539- 8397 Nov, Essential hypertension I10 ; Pain in left shoulder M25.512 ; Amphetamine abuse F15.10 and Callus of foot L84 [facility] [id number] [place] [address] 85632- 2222 Nov, Shoulder pain, left M25.512 [facility] [id number] [place] [address] 10782- 9127 Nov, [facility] [id number] [place] [address] 78224- 6842 Nov, [facility] [id number] [place] [address] 49697- 8305 Nov, Allergic rhinitis, unspecified allergic rhinitis type J30.9 ; Right wrist pain M25.531 ; Back pain M54.9 and Essential hypertension I10 [facility] [id number] [place] [address] 32105- 3570 Nov, [facility] [id number] [place] [address] 54436- 4598 Oct, [facility] [id number] [place] [address] 20419- 8184 Oct, Tobacco abuse Z72.0 ; Lumbar back pain M54.5 and Foot callus L84 [facility] [id number] [place] [address] 66750- 0797 Sep, [facility] [id number] [place] [address] 10341- 5049 Sep, Lumbar pain M54.5 ; Essential hypertension I10 ; COPD ( chronic obstructive pulmonary disease) J44.9 ; Anxiety F41.9 and Allergic rhinitis, unspecified allergic rhinitis type J30.9 [facility] [address] [place] [address] 86845- 0732 Aug, [facility] [id number] [place] [address] 05690- 1111 Aug, [facility] [id number] [place] [address] 69102- 5208 Jul, [facility] [id number] [place] [address] 21250- 7659 Jul, Lumbar back pain M54.5 ; Essential hypertension I10 ; COPD ( chronic obstructive pulmonary disease) J44.9 ; Anxiety F41.9 and Allergic rhinitis J30.9 [facility] [id number] [place] [address] 75903- 8187 Apr, Positive urine drug screen 796.0 and Chronic lumbar pain 724.2 [facility] [id number] [place] [address] 96745- 2509 Apr, [facility] [address] 42608- 4092 Apr, [facility] [address] 13094- 7146 Apr, [facility] [address] 23751- 8799 Apr, Lumbago 724.2 ; Unspecified viral hepatitis C without hepatic coma 070.70 ; Unspecified disorder of skin and subcutaneous tissue 709.9 and Long-term use of high-risk medication V58.69 [place] [address] 01188- 2101 Mar, Vision changes 368.9 ; Allergic rhinitis 477.9 and Callus of foot 700 [place] [facility] [id number] [place] [address] 17541- 0444 Mar, [facility] [id number] [place] [address] 48583- 6465 Mar, Chronic airway obstruction, not elsewhere classified 496 ; Essential hypertension, benign 401.1 ; Lumbago 724.2 ; Insomnia, unspecified 780.52 ; Anxiety state, unspecified 300.00 and Unspecified disorder of skin and subcutaneous tissue 709.9 [facility] [id number] [place] [address] [id number] Mar, Dental examination V72.2 [facility] [facility] [id number] [place] [address] 59094- 6214 Mar, [facility] [id number] [place] [address] 55276- 6764 Feb, Amphetamine and other psychostimulant dependence, unspecified abuse 304.40 [place] [address], [place] [address]- 6328 Feb, Chronic airway obstruction, not elsewhere classified 496 ; Back pain 724.5 and Hypertension 401.9 [facility] [id number] [address]- 1022 January, Chronic airway obstruction, not elsewhere classified 496 ; Unspecified disorder of skin and subcutaneous tissue 709.9 ; Lumbago 724.2 ; Essential hypertension, benign 401.1 ; Foot callus 700 and Allergic rhinitis 477.9 [facility] [address], [place] [address]- 3349 January, [facility] [id number] [place] [address] 96917- 5463 January, [facility] [id number] [place] [address] 95906- 4729 Dec, [facility] [id number] [place] [address] 46177- 7848 Dec, [facility] [address], [place] [address]- 2623 Nov, [facility] [address] [address]- 2267 Nov, [facility] [address], [place] [address]- 6223 Nov, [facility] [address], [place] [address]- 7531 Nov, [facility] [address] [address]- 4156 Nov, [facility] [id number] [address]- 8043 17 Nov, 2014 [facility] [address] [address]- 0092 16 Nov, 2014 [facility] [id number] [place] [address] 99190- 3270 Nov, 2014 [facility] [place] [facility] [address] [id number] [place] [address]- 4341 Nov, 2014 [facility] [place] [facility] [address] [id number] [place] [address]- 3366 Oct, 2014 [facility] [place] [facility] [address] [id number] [place] [address]- 3366 Oct, 2014 [facility] [place] [facility] [address] [id number] [place] [address]- 5162 Oct, 2014 [facility] [place] [facility] [address] [id number] [place] [address]- 7671 Oct, 2014 [facility] [place] [facility] [address] [id number] [place] [address]- 2871 Oct, 2014 [facility] [place] [facility] [address] [facility] [id number] [place] [address]- 2253 Oct, 2014 [facility] [place] [facility] [address] [id number] [place] [address]- 5095 Oct, 2014 [facility] [place] [facility] [address] [id number] [place] [address]- 0498 Oct, 2014 [facility] [place] [facility] [address] [facility] [id number] [place] [address]- 3150 Oct, 2014 [facility] [place] [facility] [address] [facility] [id number] [place] [address] 2542 Oct, 2014 [facility] [place] [facility] [address] [id number] [place] [address]- 254 Oct, 2014 [facility] [place] [facility] [address] [id number] [place] [address]- 9236 Oct, 2014 [facility] [place] [facility] [address] [facility] [id number] [place] [address]- 2542 Oct, 2014 [facility] [place] [facility] [address] [facility] [id number] [place] [address]- 6166 Sep, [facility] [place] [facility] [address] [id number] [place] [address]- 8659 Sep, [facility] [place] [facility] [address] [id number] [place] [address]- 0208 Sep, [facility] [place] [facility] [address] [id number] [place] [address]- 2412 Sep, [facility] [place] [facility] [address] [id number] [place] [address]- 1762 Sep, [facility] [place] [facility] [address] [id number] [place] [address]- 1075 Sep, [facility] [place] [facility] [address] [id number] [place] [address]- 8248 Sep, [facility] [place] [facility] [address] [id number] [place] [address]- 4837 Sep, [facility] [place] [facility] [address] [id number] [place] [address]- 2186 Aug, [facility] [place] [facility] [address] [id number] [place] [address]- 7078 Aug, [facility] [place] [facility] [address] [id number] [place] [address]- 3941 Aug, [facility] [place] [facility] [address] [id number] [place] [address]- 8740 Aug, [facility] [place] [facility] [address] [id number] [place] [address]- 5354 Aug, [facility] [place] [facility] [address] [id number] [place] [address]- 3739 Aug, [facility] [place] [facility] [address] [id number] [place] [address]- 9881 Aug, [facility] [place] [facility] [address] [id number] [place] [address]- 8142 Aug, [facility] [place] [facility] [address] [id number] [place] [address]- 3712 Aug, [facility] [place] [facility] [address] [id number] [place] 3479 Aug, [facility] [place] [facility] [address] [id number] [place] 4411 Aug, [facility] [place] [facility] [address] [id number] [place] [address]- 9728 Aug, [facility] [place] [facility] [address] [id number] [place] 5057 Aug, [facility] [place] [facility] [address] [id number] [place]- 9107 Aug, [facility] [place] [facility] [address] [id number] [place] [id number] Aug, [facility] [place] [facility] [address] [id number] [place] [address]- 0240 Aug, [facility] [place] [facility] [address] [id number] [place] [address]- 1336 Jul, [facility] [place] [facility] [address] [id number] [place] [address]- 9133 Jul, [facility] [place] [facility] [address] [facility] [id number] [place] [address]- 2795 Jul, [facility] [place] [facility] [address] [id number] [place] [address]- 0173 Jul, [facility] [place] [facility] [address] [id number] [place] [address]- 6916 Jul, [facility] [place] [facility] [address] [id number] [place] 8328 Jul, [facility] [place] [facility] [address] [id number] [place] 7081 Jun, [facility] [place] [facility] [address] [id number] [place] 3689 Jun, [facility] [place] [facility] [address] [id number] [place] [address]- 2681 Jun, 2013 [facility] [place] [facility] [address] [id number] [place] [address]- 5467 Jun, 2013 [facility] [place] [facility] [address] [id number] [place] [address]- 6315 Jun, 2013 [facility] [place] [facility] [address] [id number] [place] [address]- 0423 Jun, 2013 [facility] [place] [facility] [address] [id number] [place] [address]- 4799 Jun, 2013 [facility] [place] [facility] [address] [id number] [place] [address]- 2567 Jun, 2013 [facility] [place] [facility] [address] [id number] [place] [address]- 8820 Jun, 2013 [facility] [place] [facility] [address] [id number] [place] [address]- 5278 Jun, 2013 [facility] [place] [facility] [address] [id number] [place] [address]- 7956 Jun, [facility] [place] [facility] [address] [id number] [place] [address]- 6489 Jun, 2013 [facility] [place] [facility] [address] [id number] [place] [address]- 1658 Jun, 2013 [facility] [place] [facility] [address] [id number] [place] [address]- 3185 Jun, 2013 [facility] [place] [facility] [address] [id number] [place] [address]- 2635 Jun, [facility] [place] [facility] [address] [id number] [place] [address]- 9794 Jun, 2013 [facility] [place] [facility] [address] [id number] [place] [address]- 9368 Jun, 2013 [facility] [place] [facility] [address] [id number] [place] [address]- 3185 Jun, [facility] [place] [facility] [address] [id number] [place] [address]- 8282 Jun, [facility] [place] [facility] [address] [id number] [place] [address]- 3766 Jun, [facility] [place] [facility] [address] [id number] [place] [address]- 9146 Jun, [facility] [place] [facility] [address] [id number] [place] [address]- 9595 Jun, [facility] [place] [facility] [address] [id number] [place] [address]- 4386 Jun, [facility] [place] [facility] [address] [id number] [place] [address]- 2442 May, [facility] [place] [facility] [address] [id number] [place] [address]- 5223 May, [facility] [place] [facility] [address] [id number] [place] [address]- 1064 May, [facility] [place] [facility] [address] [id number] [place] [address]- 9083 May, [facility] [place] [facility] [address] [id number] [place] [address]- 7957 May, [facility] [place] [facility] [address] [id number] [place] [address]- 6783 May, [facility] [place] [facility] [address] [id number], [place] [address]- 2039 May, [facility] [place] [facility] [address] [id number] [place] [address]- 2406 May, [facility] [place] [facility] [address] [id number] [place] [address]- 8275 Apr, [facility] [place] [facility] [address] [id number] [place] [address]- 3557 Apr, [facility] [place] [facility] [address] [id number] [place] [address]- 0476 Apr, [facility] [place] [facility] [address] [id number] [place] [address]- 5562 Apr, [facility] [place] [facility] [address] [id number] [place] [address]- 3791 Apr, [facility] [place] [facility] [address] [id number] [place] [address]- 2199 Apr, [facility] [place] [facility] [address] [id number] [place] [address]- 4839 Apr, [facility] [place] [facility] [address] [id number] [place] [address]- 6704 Apr, [facility] [place] [facility] [address] [id number] [place] [address]- 5724 Apr, [facility] [place] [facility] [address] [id number] [place] [address]- 8632 Apr, [facility] [place] [facility] [address] [id number] [place] [address]- 2872 Apr, [facility] [place] [facility] [address] [id number] [place] [address]- 1645 Apr, [facility] [place] [facility] [address] [id number] [place] [address]- 7482 Apr, [facility] [place] [facility] [address] [id number] [place] [address]- 8139 Apr, [facility] [place] [facility] [address] [id number] [place] [address]- 2657 Apr, [facility] [place] [facility] [address] [id number] [place] [address] Apr, [facility] [place] [facility] [address] [id number] [place] [address] Apr, [facility] [place] [facility] [address] [id number] [place] [address] Apr, [facility] [place] [facility] [address] [id number] [place] [address] Apr, [facility] [place] [facility] [address] [id number] [place] [address] Apr, [facility] [place] [facility] [address] [id number] [place] [address] Apr, [facility] [place] [facility] [address] [id number] [place] [address] Apr, [facility] [place] [facility] [address] [id number] [place] [address] Mar, [facility] [place] [facility] [address] [id number] [place] [address] Mar, [facility] [place] [facility] [address] [id number] [place] [address] Mar, [facility] [place] [facility] [address] [id number] [place] [address] Mar, [facility] [place] [facility] [address] [id number] [place] [address] Mar, [facility] [place] [facility] [address] [id number] [place] [address] Mar, [facility] [place] [facility] [address] [id number] [place] [address] Mar, [facility] [place] [facility] [address] [id number] [place] [address]- [address]86 Mar, [facility] [place] [facility] [address] [id number] [place] [address] Feb, [facility] [place] [facility] [address] [id number] [place] [address]597 Feb, [facility] [place] [facility] [address] [id number] [place] [address]- [address] Feb, [facility] [place] [facility] [address] [id number] [place] [address] 1695 Feb, [facility] [place] [facility] [address] [id number] [place] [address]- [address]472 Feb, [facility] [place] [facility] [address] [id number] [place] [address]- [address] Feb, [facility] [place] [facility] [address] [id number] [place] [address] 12[address] Feb, [facility] [place] [facility] [address] [id number] [place] [address] January, [facility] [place] [facility] [address] [id number] [place] [address] January, [facility] [place] [facility] [address] [id number] [place] [address]- [address] January, [facility] [place] [facility] [address] [id number] [place] [address]- [address] January, [facility] [place] [facility] [address] [id number] [place] [address]- [address] Dec, [facility] [place] [facility] [address] [id number] [place] [address]- 2095 Dec, [facility] [place] [facility] [address] [id number] [place] [address] Dec, [facility] [place] [facility] [address] [id number] [place] [address]- 76[address] Dec, [facility] [place] [facility] [address] [id number] [place] [address] Dec, [facility] [place] [facility] [address] [id number] [place] [address]- [address]16 Dec, [facility] [place] [facility] [address] [id number] [place] [address]- [address] Dec, [facility] [place] [facility] [address] [id number] [place] [address]- 49[address] Dec, [facility] [place] [facility] [address] [id number] [place] [address]- [address] 15 Dec, 2013 [facility] [place] [facility] [address] [id number] [place] [address]- [address]69 15 Dec, 2013 [facility] [place] [facility] [address] [id number] [place] [address]- [address]65 28 Nov, 2013 [facility] [place] [facility] [address] [id number] [place] [address]- [address] 28 Nov, 2013 [facility] [place] [facility] [address] [id number] [place] [address]- [address] Nov, [facility] [place] [facility] [address] [id number] [place] [address] Nov, [facility] [place] [facility] [address] [facility] [id number] [place] [address]- [address] Oct, [facility] [place] [facility] [address] [id number] [place] [address]- 7615 Oct, [facility] [place] [facility] [address] [id number] [place] [address]- [address] Oct, [facility] [place] [facility] [address] [facility] [id number] [place] [address] Oct, [facility] [place] [facility] [address] [facility] [id number] [place] [address]- 240[address] Oct, [facility] [place] [facility] [address] [facility] [id number] [address] Oct, [facility] [place] [facility] [address] [facility] [id number] [place] [address]- [address] Oct, [facility] [place] [facility] [address] [id number] [place] [address]- 96[address] Oct, [facility] [place] [facility] [address] [facility] [id number] [place] [address] Sep, [facility] [place] [facility] [address] [facility] [id number], [place] [address] Sep, [facility] [place] [facility] [address] [id number] [place] [address] Sep, [facility] [place] [facility] [address] [id number], [place] [address] Sep, [facility] [place] [facility] [address] [id number] [place] [address] Aug, [facility] [place] [facility] [address] [id number], [place] [address] Aug, [facility] [place] [facility] [address] [id number] [place] [address] Aug, [facility] [place] [facility] [address] [id number] [place] [address] Aug, [facility] [place] [facility] [address] [id number], [place] [address] Jul, [facility] [place] [facility] [address] [id number], [place] [address] Jul, [facility] [place] [facility] [address] [id number], [place] [address] Jul, [facility] [place] [facility] [address] [id number], [place] [address] Jul, [facility] [place] [facility] [address] [id number], [place] [address] Jun, [facility] [place] [facility] [address] [id number], [place] [address] 22 Jun, 2013 [facility] [place] [facility] [address] [id number], [place] [address] 14 Jun, 2013 [facility] [place] [facility] [address] [id number], [place] [address] 14 Jun, 2013 [facility] [place] [facility] [address] [id number], [place] [address] 11 Jun, 2013 [facility] [place] [facility] [address] [id number] [place] [address] Jun, [facility] [address] [id number] [place] [address] Jun, [facility] [place] [facility] [address] [id number] [place] [address] May, [facility] [place] [facility] [address] [id number] [place] [address] May, [facility] [place] [facility] [address] [id number] [place] [address] May, [facility] [place] [facility] [address] [id number] [place] [address] Apr, [facility] [place] [facility] [address] [id number] [place] [address] Apr, [facility] [place] [facility] [address] [id number] [place] [address] Apr, [facility] [address] [id number] [place] [address] Apr, [facility] [place] [facility] [address] [id number] [place] [address] Apr, [facility] [place] [facility] [address] [id number] [place] [address] Mar, [facility] [place] [facility] [address] [id number] [place] [address] Mar, [facility] [place] [facility] [address] [id number] [place] [address] Mar, [facility] [place] [facility] [address] [id number] [place] [address]- [address] Mar, [facility] [place] [facility] [address] [id number] [place] [address] Mar, [facility] [place] [facility] [address] [id number] [place] [address] Mar, [facility] [address] [id number] [place] [address] Feb, [facility] [place] [facility] [address] [id number] [place] [address] Feb, [facility] [place] [facility] [address] [id number] [place] [address] Feb, [facility] [place] [facility] [address] [id number] [place] [address] Feb, [facility] [place] [facility] [address] [id number] [place] [address]- [address] Feb, [facility] [place] [facility] [address] [id number] [place] [address]- 1996 Feb, [facility] [place] [facility] [address] [id number] [place] [address] Feb, [facility] [place] [facility] [address] [id number] [place] [address]- [address] Feb, [facility] [place] [facility] [address] [id number] [place] [address] Feb, [facility] [place] [facility] [address] [id number] [place] [address]- [address] January, [facility] [place] [facility] [address] [id number] [place] [address]- [address] January, [facility] [place] [facility] [address] [id number] [place] [address] January, [facility] [place] [facility] [address] [id number] [place] [address] 47[address] January, [facility] [place] [facility] [address] [id number] [place] [address] January, [facility] [place] [facility] [address] [id number] [place] [address]- [address] January, [facility] [place] [facility] [address] [id number] [place] [address] 17 Jan, 2013 [facility] [address] [id number] [place] [address]- [address] January, [facility] [address] [id number] [place] [address]- [address] January, [facility] [address] [id number] [place] [address]- [address] January, [facility] [address] [id number] [place] [address] Dec, [facility] [address] [id number] [place] [address] Dec, [facility] [address] [id number] [place] [address] Dec, [facility] [address] [id number] [place] [address]- [address] Dec, [facility] [address] [id number] [place] [address]- [address] Dec, [facility] [address] [id number] [place] [address] Dec, [facility] [address] [facility] [id number] [place] [address] Nov, [facility] [address] [id number] [place] [address]- [address] Nov, [facility] [place] [facility] [address] [id number] [place] [address]- [address] Nov, [facility] [place] [facility] [address] [id number] [place] [address] Oct, [facility] [place] [facility] [address] [id number] [place] [address]- [address] Oct, [facility] [address] [id number] [place] [address] Oct, [facility] [address] [facility] [id number] [place] [address] Oct, [facility] [address] [facility] [id number], [place] [address] Oct, [facility] [address] [facility] [id number] [place] [address]- [address] Jun, IMMUNIZATIONS No Known Immunizations SOCIAL HISTORY Never Assessed REASON FOR VISIT triage JStrasserRN PLAN OF CARE VITAL SIGNS MEDICATIONS Unknown [...]
--- OUTSIDE RECORDS SUMMARY | 2018-11-29 19:23 | XMS REPORT ---
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 Active 5540070 Problem Pain in left shoulder M25.512 Active 79305313 Problem Back pain M54.9 Active 837260188 Problem Socially inappropriate behavior F99 Active 312085511 Problem Amphetamine abuse F15.10 Active 85308813 ALLERGIES Substance Reaction Event Type Date Status Sulfamethoxazole-Trimethoprim Unknown Drug Allergy Jun, Active ENCOUNTERS Encounter Location Date Diagnosis [facility] [id number] [place] [address] 37647- 8235 Nov, [facility] [id number] [place] [address] 90835- 5419 Sep, [facility] [id number] [place] [address] 43366- 6942 Aug, [facility] [id number] [place] [address] 26337- 7301 Aug, [facility] [id number] [place] [address] 13210- 6747 Jul, [facility] [id number] [place] [address] 94862 -4607 Jul, Back pain M54.9 [facility] [id number] [place] [address] 51719- 9152 Jul, [facility] [id number] [place] [address] 43403- 4175 Jun, [facility] [id number] [place] [address] 97367- 9951 Jun, [facility] [id number] [place] [address] 34810- 5397 Jun, Arthritis M19.90 ; Pain in left shoulder M25.512 and Lumbar back pain M54.5 [facility] [id number] [place] [address] 91221- 6686 May, [facility] [id number] [place] [address] 00636- 8512 Apr, [facility] [id number] [place] [address] 16751- 7744 Apr, [facility] [id number] [place] [address] 14032- 3281 Apr, Essential hypertension I10 and Arthritis M19.90 [facility] [id number] [place] [address] 42164- 0517 Apr, [facility] [id number] [place] [address] 78487- 2437 Mar, [facility] [id number] [place] [address] 58224- 1966 Mar, Lumbar pain M54.5 ; 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 ; Allergic rhinitis, unspecified allergic rhinitis type J30.9 and Hematuria R31.9 [facility] [id number] [address] 0438 Mar, [facility] [id number] [place] [address] 14886 -4885 January, Open bite, right lower leg, initial encounter S81.851A and Pain in left shoulder M25.512 [facility] [id number] [place] [address] 13620 -0634 Dec, [facility] [address] [address]60 Dec, Low back pain M54.5 [facility] [id number] [place] [address] 15824- 5475 Aug, [facility] [id number] [place] [address] 29477 -9111 Apr, Perforated left tympanic membrane on examination H72.92 and Deafness in left ear H91.92 [facility] [id number] [place] [address] 19112- 3409 Apr, [facility] [id number] [place] [address] 40113- 7771 Mar, Lumbar back pain M54.5 ; Essential hypertension I10 ; Chronic obstructive pulmonary disease, unspecified COPD type J44.9 ; Anxiety F41.9 ; Long-term use of high-risk medication Z79.899 and Socially inappropriate behavior F99 [facility] [id number] [place] [address] 83008- 1714 Mar, [facility] [id number] [place] [address] 90502- 9694 Mar, Low back pain M54.5 [facility] [id number] [place] [address] 72249- 1876 Mar, [facility] [id number] [place] [address] 87778- 4629 Mar, [facility] [id number] [place] [address] 94185- 3831 Feb, Impingement syndrome, shoulder, left M75.42 and Superior glenoid labrum lesion of left shoulder, subsequent encounter S43.432D [facility] [id number] [place] [address] 11973- 2226 January, [facility] [id number] [place] [address] 55907- 3801 January, [facility] [id number] [place] [address] 32463- 0038 January, [facility] [id number] [place] [address] 84906- 5290 Dec, Impingement syndrome, shoulder, left M75.42 [facility] [id number] [place] [address] 77085- 8867 Dec, [facility] [id number] [place] [address] 19658- 2499 Nov, [facility] [address] 41292- 8377 Nov, Essential hypertension I10 ; Pain in left shoulder M25.512 ; Amphetamine abuse F15.10 and Callus of foot L84 [place] [address] 09256- 8280 Nov, Shoulder pain, left M25.512 [facility] [id number] [place] [address] 63250- 2586 Nov, [facility] [id number] [place] [address] 38842- 7549 Nov, [facility] [id number] [place] [address] 28590- 9159 Nov, Allergic rhinitis, unspecified allergic rhinitis type J30.9 ; Right wrist pain M25.531 ; Back pain M54.9 and Essential hypertension I10 [facility] [id number] [place] [address] 96146- 3730 Nov, [facility] [address] 02020- 7927 Oct, [facility] [id number] [place] [address] 56206- 4801 Oct, Tobacco abuse Z72.0 ; Lumbar back pain M54.5 and Foot callus L[address] [id number] [place] [address] 20430- 2211 Sep, [facility] [id number] [place] [address] 63336- 9796 Sep, Lumbar pain M54.5 ; Essential hypertension I10 ; COPD ( chronic obstructive pulmonary disease) J44.9 ; Anxiety F41.9 and Allergic rhinitis, unspecified allergic rhinitis type J30.9 [facility] [address] 67334- 7720 Aug, [facility] [id number] [place] [address] 86648- 4677 Aug, [facility] [address] 26312- 9444 Jul, [facility] [address] 43123- 4574 Jul, Lumbar back pain M54.5 ; Essential hypertension I10 ; COPD ( chronic obstructive pulmonary disease) J44.9 ; Anxiety F41.9 and Allergic rhinitis J30.9 [facility] [id number] [place] [address] 32647- 3156 Apr, Positive urine drug screen 796.0 and Chronic lumbar pain 724.2 [facility] [id number] [place] [address] 84717- 3900 Apr, [facility] [id number] [place] [address] 10296- 2823 Apr, [facility] [id number] [place] [address] 62527- 7145 Apr, [facility] [facility] [address] 99918- 4810 Apr, Lumbago 724.2 ; Unspecified viral hepatitis C without hepatic coma 070.70 ; Unspecified disorder of skin and subcutaneous tissue 709.9 and Long-term use of high-risk medication V58.69 [facility] [id number] [place] [address] 11303- 2843 Mar, Vision changes 368.9 ; Allergic rhinitis 477.9 and Callus of foot 700 [facility] [id number] [place] [address] 35948- 8348 Mar, [facility] [id number] [place] [address] 32555- 7860 Mar, Chronic airway obstruction, not elsewhere classified 496 ; Essential hypertension, benign 401.1 ; Lumbago 724.2 ; Insomnia, unspecified 780.52 ; Anxiety state, unspecified 300.00 and Unspecified disorder of skin and subcutaneous tissue 709.9 [facility] [id number] [place] [address] [id number] Mar, Dental examination V72.2 [facility] [address] 67218- 8257 Mar, [facility] [address] 13298- 8694 Feb, Amphetamine and other psychostimulant dependence, unspecified abuse 304.40 [facility] [id number] [place] [address] 06930- 0761 Feb, Chronic airway obstruction, not elsewhere classified 496 ; Back pain 724.5 and Hypertension 401.9 [facility] [id number] [place] [address] 28108- 0895 January, Chronic airway obstruction, not elsewhere classified 496 ; Unspecified disorder of skin and subcutaneous tissue 709.9 ; Lumbago 724.2 ; Essential hypertension, benign 401.1 ; Foot callus 700 and Allergic rhinitis 477.9 [facility] [address] 66973- 0517 January, [facility] [id number] [place] [address] 06524- 9844 January, [facility] [id number] [place] [address] 12584- 9606 Dec, [facility] [place] [facility] [address] [id number] [place] [address]- 9640 13 Dec, 2014 [facility] [place] [facility] [address] [id number] [place] [address]- 0641 27 Nov, 2014 [facility] [place] [facility] [address] [id number] [place] [address]- 6038 Nov, [facility] [place] [facility] [address] [id number] [place] [address]- 6787 Nov, [facility] [place] [facility] [address] [id number] [place] [address]- 3684 Nov, [facility] [place] [facility] [address] [id number] [place] [address]- 7270 Nov, [facility] [place] [facility] [address] [id number] [place] [address]- 6459 Nov, [facility] [place] [facility] [address] [id number] [place] [address]- 5489 16 Nov, 2014 [facility] [place] [facility] [address] [id number] [place] [address]- 0622 Nov, [facility] [place] [facility] [address] [id number] [place] [address]- 5196 Nov, [facility] [place] [facility] [address] [id number] [place] [address]- 0275 Oct, 2014 [facility] [place] [facility] [address] [id number] [place] [address]- 9680 Oct, 2014 [facility] [place] [facility] [address] [id number] [place] [address]- 9914 Oct, [facility] [place] [facility] [address] [id number] [place] [address]- 7256 Oct, 2014 [facility] [place] [facility] [address] [id number] [place] [address]- 7226 Oct, [facility] [place] [facility] [address] [id number] [place] [address]- 5416 Oct, 2014 [facility] [place] [facility] [address] [id number] [place] [address]- 6872 Oct, 2014 [facility] [place] [facility] [address] [id number] [place] [address]- 0406 Oct, 2014 [facility] [place] [facility] [address] [id number] [place] [address]- 5356 Oct, 2014 [facility] [place] [facility] [address] [id number] [place] [address]- 3373 Oct, 2014 [facility] [place] [facility] [address] [id number] [place] [address]- 9152 Oct, 2014 [facility] [place] [facility] [address] [id number] [place] [address]- 2085 Oct, 2014 [facility] [place] [facility] [address] [id number] [place] [address]- 3919 Oct, [facility] [place] [facility] [address] [id number] [place] [address]- 1817 Sep, [facility] [place] [facility] [address] [facility] [id number] [place] [address]- 3040 Sep, [facility] [place] [facility] [address] [id number] [place] [address]- 7317 Sep, [facility] [place] [facility] [address] [id number] [place] [address]- 1077 Sep, [facility] [place] [facility] [address] [id number] [place] [address]- 6597 Sep, [facility] [place] [facility] [address] [id number] [place] [address]- 0505 Sep, [facility] [place] [facility] [address] [id number] [place] [address]- 1422 Sep, [facility] [place] [facility] [address] [id number] [place] [address]- 8140 Sep, [facility] [place] [facility] [address] [id number] [place] 1588 Aug, [facility] [place] [facility] [address] [id number] [place] 9406 Aug, [facility] [place] [facility] [address] [id number] [place] 7426 Aug, [facility] [place] [facility] [address] [id number] [place] 8377 Aug, [facility] [place] [facility] [address] [id number] [place] [address]- 2390 Aug, [facility] [place] [facility] [address] [id number] [place] [address]- 5249 Aug, [facility] [place] [facility] [address] [id number] [place] [address]- 0472 Aug, [facility] [place] [facility] [address] [id number] [place] [address]- 3059 Aug, [facility] [place] [facility] [address] [id number] [place] [address]- 9492 Aug, [facility] [place] [facility] [address] [id number] [place] [address]- 9915 Aug, [facility] [place] [facility] [address] [id number] [place] [address]- 1103 Aug, [facility] [place] [facility] [address] [id number], [place] [address]- 0312 Aug, [facility] [place] [facility] [address] [id number] [place] 1459 Aug, [facility] [place] [facility] [address] [id number] [place] 8673 Aug, [facility] [place] [facility] [address] [id number] [place] [id number] Aug, [facility] [place] [facility] [address] [id number] [place] [address]- 7264 Aug, [facility] [place] [facility] [address] [id number] [place] [address]- 6394 Jul, [facility] [place] [facility] [address] [id number] [place] [address]- 6058 Jul, [facility] [place] [facility] [address] [id number] [place] [address]- 4175 Jul, [facility] [place] [facility] [address] [id number] [place] [address]- 1649 Jul, [facility] [place] [facility] [address] [id number] [place] [address]- 8656 Jul, [facility] [place] [facility] [address] [id number] [place] [address]- 9366 Jul, [facility] [place] [facility] [address] [id number] [place] [address]- 8401 Jun, [facility] [place] [facility] [address] [id number] [place] [address]- 7318 Jun, [facility] [place] [facility] [address] [id number] [place] [address]- 7068 Jun, [facility] [place] [facility] [address] [facility] [id number] [place] [address]- 0408 Jun, [facility] [place] [facility] [address] [id number] [place] [address]- 4116 Jun, [facility] [place] [facility] [address] [id number] [place] [address]- 4573 Jun, [facility] [place] [facility] [address] [id number] [place] [address]- 9143 Jun, [facility] [place] [facility] [address] [id number] [place] [address]- 2331 Jun, [facility] [place] [facility] [address] [id number] [place] [address]- 2843 Jun, [facility] [place] [facility] [address] [id number] [place] [address]- 2859 Jun, 2013 [facility] [place] [facility] [address] [id number] [place] 6290 Jun, 2013 [facility] [place] [facility] [address] [id number] [place] [address]- 4408 Jun, 2013 [facility] [place] [facility] [address] [id number] [place] [address]- 9279 Jun, 2013 [facility] [place] [facility] [address] [id number] [place] [address]- 3911 Jun, 2013 [facility] [place] [facility] [address] [id number] [place] [address]- 2974 Jun, 2013 [facility] [place] [facility] [address] [id number] [place] [address]- 4347 Jun, 2013 [facility] [place] [facility] [address] [id number] [place] [address]- 8191 Jun, 2013 [facility] [place] [facility] [address] [id number] [place] [address]- 5943 Jun, 2013 [facility] [place] [facility] [address] [id number] [place] [address]- 4009 Jun, 2013 [facility] [place] [facility] [address] [id number] [place] [address]- 6204 Jun, 2013 [facility] [place] [facility] [address] [id number], [place] [address]- 6798 Jun, 2013 [facility] [place] [facility] [address] [id number] [place] [address]- 8021 Jun, [facility] [place] [facility] [address] [id number] [place] [address]- 2196 Jun, [facility] [place] [facility] [address] [id number] [place] [address]- 2086 May, [facility] [place] [facility] [address] [id number] [place] [address]- 6503 May, [facility] [place] [facility] [address] [id number] [place] [address]- 4140 May, [facility] [place] [facility] [address] [id number] [place] [address]- 0216 May, [facility] [place] [facility] [address] [id number] [place] [address]- 4190 May, [facility] [place] [facility] [address] [id number] [place] [address]- 4689 May, [facility] [place] [facility] [address] [id number] [place] [address]- 5514 May, [facility] [place] [facility] [address] [id number] [place] [address]- 8329 May, [facility] [place] [facility] [address] [id number] [place] [address]- 7252 Apr, [facility] [place] [facility] [address] [id number] [place] [address]- 3717 Apr, [facility] [place] [facility] [address] [id number] [place] [address]- 4239 Apr, [facility] [place] [facility] [address] [id number] [place] [address]- 5437 Apr, [facility] [place] [facility] [address] [id number] [place] [address]- 1603 Apr, [facility] [place] [facility] [address] [id number] [place] [address]- 2369 Apr, [facility] [place] [facility] [address] [id number] [place] [address]- 6940 Apr, [facility] [place] [facility] [address] [id number] [place] [address]- 7525 Apr, [facility] [place] [facility] [address] [id number] [place] [address]- 8427 Apr, [facility] [place] [facility] [address] [id number] [place] [address]- 2521 Apr, [facility] [place] [facility] [address] [id number] [place] [address]- 2570 Apr, [facility] [place] [facility] [address] [id number] [place] [address]- 7021 Apr, [facility] [place] [facility] [address] [id number] [place] [address]- 4184 Apr, [facility] [place] [facility] [address] [id number] [place] [address]- 7687 Apr, [facility] [place] [facility] [address] [id number] [place] [address]- 7124 Apr, [facility] [place] [facility] [address] [id number] [place] [address]- 4591 Apr, [facility] [place] [facility] [address] [id number] [place] [address]- 9596 Apr, [facility] [place] [facility] [address] [id number] [place] [address]- 3942 Apr, [facility] [place] [facility] [address] [id number] [place] [address] Apr, [facility] [place] [facility] [address] [id number] [place] [address] Apr, [facility] [place] [facility] [address] [id number] [place] [address] Apr, [facility] [place] [facility] [address] [id number] [place] [address] Apr, [facility] [place] [facility] [address] [id number] [place] [address] Mar, [facility] [place] [facility] [address] [id number] [place] [address] 98[address] Mar, [facility] [place] [facility] [address] [id number] [place] [address] Mar, [facility] [place] [facility] [address] [id number] [place] [address] Mar, [facility] [place] [facility] [address] [id number] [place] [address]- [address] Mar, [facility] [place] [facility] [address] [id number] [place] [address] Mar, [facility] [place] [facility] [address] [id number] [place] [address]- [address] Mar, [facility] [place] [facility] [address] [id number] [place] [address]- [address] Mar, [facility] [place] [facility] [address] [id number] [place] [address]- [address] Feb, [facility] [place] [facility] [address] [id number] [place] [address] 136[address] Feb, [facility] [place] [facility] [address] [id number] [place] [address]- [address]293 Feb, [facility] [place] [facility] [address] [id number] [place] [address]- [address] Feb, [facility] [place] [facility] [address] [id number] [place] [address]- 290[address] Feb, [facility] [place] [facility] [address] [id number] [place] [address]- [address] Feb, [facility] [place] [facility] [address] [id number] [place] [address] 2001 Feb, [facility] [place] [facility] [address] [id number] [place] [address] 94[address] January, [facility] [place] [facility] [address] [id number] [place] [address] January, [facility] [place] [facility] [address] [id number] [place] [address] 76[address] January, [facility] [place] [facility] [address] [id number], [place] [address] January, [facility] [address] [id number] [place] [address]- [address] Dec, [facility] [place] [facility] [address] [id number] [place] [address] Dec, [facility] [place] [facility] [address] [id number] [place] [address]- [address]707 Dec, [facility] [place] [facility] [address] [id number] [place] [address] 8470 Dec, [facility] [place] [facility] [address] [id number] [place] [address] 8588 Dec, [facility] [place] [facility] [address] [id number] [place] [address]- [address] Dec, [facility] [address] [id number] [place] [address] 68[address] Dec, [facility] [place] [facility] [address] [id number] [place] [address]- 132[address] Dec, [facility] [place] [facility] [address] [id number] [place] [address]- 8330 Dec, [facility] [place] [facility] [address] [id number] [place] [address]- [address] Dec, [facility] [place] [facility] [address] [id number] [place] [address] Nov, [facility] [place] [facility] [address] [id number] [place] [address]- [address] Nov, [facility] [place] [facility] [address] [id number] [place] [address]- [address] Nov, [facility] [place] [facility] [address] [id number] [place] [address]- [address]99 Nov, [facility] [place] [facility] [address] [id number] [place] [address]- [address] Oct, [facility] [place] [facility] [address] [id number] [place] [address]- [address] Oct, [facility] [place] [facility] [address] [id number] [place] [address] Oct, [facility] [place] [facility] [address] [id number] [place] [address]- 245[address] Oct, [facility] [place] [facility] [address] [id number] [place] [address]- [address] Oct, [facility] [place] [facility] [address] [id number] [place] [address] Oct, [facility] [place] [facility] [address] [id number] [place] [address]- 4163 Oct, [facility] [place] [facility] [address] [id number] [place] [address]- 270[address] Oct, [facility] [place] [facility] [address] [id number] [place] [address]- [address] Sep, [facility] [place] [facility] [address] [id number] [place] [address]- [address] Sep, [facility] [place] [facility] [address] [facility] [id number], [place] [address] Sep, [facility] [place] [facility] [address] [id number], [place] [address] Sep, [facility] [place] [facility] [address] [id number], [place] [address] Aug, [facility] [place] [facility] [address] [id number], [place] [address] Aug, [facility] [place] [facility] [address] [id number], [place] [address] Aug, [facility] [place] [facility] [address] [id number][place] [address] Aug, [facility] [place] [facility] [address] [id number], [place] [address] Jul, [facility] [place] [facility] [address] [id number] [place] [address] Jul, [facility] [place] [facility] [address] [id number] [place] [address] Jul, [facility] [place] [facility] [address] [id number] [place] [address] Jul, [facility] [place] [facility] [address] [id number] [place] [address] Jun, [facility] [place] [facility] [address] [id number] [place] [address] Jun, [facility] [place] [facility] [address] [id number] [place] [address] Jun, [facility] [place] [facility] [address] [id number], [place] [address] Jun, [facility] [place] [facility] [address] [id number] [place] [address] Jun, [facility] [place] [facility] [address] [facility] [id number] [place] [address] Jun, [facility] [place] [facility] [address] [facility] [id number] [place] [address] 08 Jun, 2013 [facility] [place] [facility] [address] [id number], [place] [address] 17 May, 2013 [facility] [place] [facility] [address] [id number], [place] [address] May, [facility] [place] [facility] [address] [id number] [place] [address] May, [facility] [place] [facility] [address] [facility] [id number], [place] [address] Apr, [facility] [place] [facility] [address] [id number] [place] [address] Apr, [facility] [place] [facility] [address] [id number] [place] [address] Apr, [facility] [place] [facility] [address] [id number] [place] [address] Apr, [facility] [place] [facility] [address] [id number] [place] [address] Apr, [facility] [place] [facility] [address] [id number] [place] [address] Mar, [facility] [place] [facility] [address] [id number] [place] [address] Mar, [facility] [place] [facility] [address] [id number] [place] [address] Mar, [facility] [place] [facility] [address] [id number] [place] [address] Mar, [facility] [place] [facility] [address] [id number] [place] [address] Mar, [facility] [place] [facility] [address] [id number] [place] [address] Mar, [facility] [place] [facility] [address] [id number] [place] [address] Feb, [facility] [place] [facility] [address] [id number] [place] [address] Feb, [facility] [place] [facility] [address] [id number] [place] [address] Feb, [facility] [place] [facility] [address] [id number] [place] [address] Feb, [facility] [place] [facility] [address] [id number] [place] [address] Feb, [facility] [place] [facility] [address] [id number] [place] [address] Feb, [facility] [place] [facility] [address] [id number] [place] [address] Feb, [facility] [address] [id number] [place] [address] Feb, [facility] [address] [id number] [place] [address] Feb, [facility] [address] [id number] [place] [address] January, [facility] [address] [id number] [place] [address] January, [facility] [address] [id number] [place] [address] January, [facility] [address] [id number] [place] [address]85 January, [facility] [address] [id number] [place] [address] January, [facility] [address] [id number] [place] [address] January, [facility] [address] [id number] [place] [address] January, [facility] [address] [id number] [place] [address] January, [facility] [address] [id number] [place] [address] January, [facility] [place] [facility] [address] [id number] [place] [address] January, [facility] [place] [facility] [address] [id number] [place] [address] Dec, [facility] [place] [facility] [address] [id number] [place] [address]- [address] Dec, [facility] [place] [facility] [address] [id number] [place] [address] Dec, [facility] [address] [id number], [place] [address] Dec, [facility] [id number] [address] Dec, [facility] [id number], [place] [address] Dec, [facility] [id number] [place] [address]- [address] Nov, [facility] [id number] [place] [address]- [address] Nov, [facility] [id number] [place] [address] 017911- [address] Nov, [facility] [id number] [place] [address]- [address] Oct, [facility] [id number] [place] [address]207- [address] Oct, [facility] [id number] [place] [address] 864766- [address] Oct, [facility] [id number] [place] [address]- [address] Oct, [facility] [id number] [place] [address]- [address] Oct, [facility] [id number] [place] [address] [id number]- [address] Jun, IMMUNIZATIONS No Known Immunizations SOCIAL HISTORY Never Assessed REASON FOR VISIT Back pain, upper back between shoulder blades. PT also has right wrist pain. PT also wants labs drawn to manage Hep Gissel-Katie ANDERS PLAN OF CARE Activity Details Follow Up prn Reason: VITAL SIGNS Height 71 in 2017-07-10 Weight 154.7 lbs 2017-07-10 Temperature 98.1 degrees Fahrenheit 2017-07-10 Heart Rate 96 bpm 2017-07-10 Respiratory Rate 22 2017-07-10 BMI 21.57 kg/m2 2017-07-10 Blood pressure systolic 118 mmHg 2017-07-10 Blood pressure diastolic 82 mmHg 2017-07-10 MEDICATIONS Medication Instructions Dosage Frequency Start Date End Date Duration Status Diclofenac Sodium 75 MG Orally Twice a day 1 tablet by Oral route 2 times per day PRN for pain 12h 12 Oct, 2014 Active RESULTS Name Result Date Reference Range UA LONG DIP (IN HOUSE) 2017-07-10 Lot # [id number] Exp date 03/2018 Clarity clear Color yellow Odor none GLU negative JAYE negative KET negative SG 1.015 BLO negative pH 5.5 Protein negative URO 0.2 NIT negative LUCY negative Lot # Exp date PROCEDURES Procedure Date Ordered Result Body Site URINALYSIS, AUTO, W/O SCOPE Jul 10, 2017 [facility] VISIT ESTABLISHED PATIENT Jul 10, 2017 INSTRUCTIONS MEDICATIONS ADMINISTERED No Known Medications [...]
--- OUTSIDE RECORDS SUMMARY | 2018-11-29 19:23 | XMS REPORT ---
Author Author FRANK MULLINS Organization [facility] Address [address] [place] [address] Care Team Providers Care Coffee Attendant Name Role Phone FRANK MULLINS Unavailable PROBLEMS Type Condition ICD9-CM Code XBY14-IP Code Onset Dates Condition Status SNOMED Code Problem Back pain M54.9 Active 547515218 Problem Amphetamine abuse F15.10 Active 89547093 Problem Pain in left shoulder M25.512 Active 86859537 Problem COPD (chronic obstructive pulmonary disease) J44.9 Active 07231781 Problem Anxiety F41.9 Active 61311095 Problem Essential hypertension I10 Active 27662569 Problem Mood disorder F39 Active 03429915 Problem Other chronic pain G89.29 Active 23798603 Problem 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 Active 6914652 Problem Socially inappropriate behavior F99 Active 932502252 Problem Seasonal allergic rhinitis due to other allergic trigger J30.89 Active 537801956 Problem Arthritis M19.90 Active 0680915 ALLERGIES No Information ENCOUNTERS Encounter Location Date Diagnosis [place] [place] [id number] Mar, Mood disorder F39 and Lumbosacral pain M54.5 [address] [place] [id number] Feb, Low back pain M54.5 ; Other chronic pain G89.29 and Seasonal allergic rhinitis due to other allergic trigger J30.89 [facility] [address] [facility] [id number] [address] Feb, [facility] [address] [address] Nov, [facility] [address] [address] 9[address] Sep, [facility] [address] [address] Aug, [facility] [address] [address] Aug, [facility] [id number] [place] [address] 99537- 2231 Jul, [facility] [address] [address] Jul, Back pain M54.9 [facility] [id number] [place] [address] 37958- 3270 Jul, [facility] [id number] [place] [address] 44884- 2360 Jun, [facility] [id number] [place] [address] 62859- 2484 Jun, [facility] [id number] [place] [address] 65804- 2162 Jun, Arthritis M19.90 ; Pain in left shoulder M25.512 and Lumbar back pain M54.5 [facility] [address] [address] 16[address] May, [facility] [id number] [place] [address] 32188- 8394 Apr, [facility] [address] [address] 3997 Apr, [facility] [id number] [place] [address] 29131- 5417 Apr, Essential hypertension I10 and Arthritis M19.90 [facility] [address] [address] 357[address] Apr, [facility] [id number] [place] [address] 48819- 8668 Mar, [facility] [address] [address] Mar, Lumbar pain M54.5 ; 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 ; Allergic rhinitis, unspecified allergic rhinitis type J30.9 and Hematuria R31.9 [id number] [place] [address] 62441- 0528 Mar, [facility] [place] [id number] [place] [address] January, Open bite, right lower leg, initial encounter S81.851A and Pain in left shoulder M25.512 [facility] [place] [id number] [place] [address] 22753 [address]2962 Dec, [facility] [place] [address] [address] Dec, Low back pain M54.5 [place] [id number] [place] [address] 86860- 7113 Aug, [facility] [place] [address] [address] Apr, Perforated left tympanic membrane on examination H72.92 and Deafness in left ear H91.92 [place] [id number] [place] [address] 35388- 5520 Apr, [place] [id number] [place] [address] 65386- 3175 Mar, Lumbar back pain M54.5 ; Essential hypertension I10 ; Chronic obstructive pulmonary disease, unspecified COPD type J44.9 ; Anxiety F41.9 ; Long-term use of high-risk medication Z79.899 and Socially inappropriate behavior F99 [place] [id number] [place] [address] 30056- 2543 Mar, [place] [id number] [place] [address] 38100- 3137 Mar, Low back pain M54.5 [place] [id number] [place] [address] 57483- 6972 Mar, [place] [id number] [place] [address] 89050- 3813 Mar, [facility] [id number] [place] [address] 82129- 2603 Feb, Impingement syndrome, shoulder, left M75.42 and Superior glenoid labrum lesion of left shoulder, subsequent encounter S43.432D [facility] [id number] [place] [address] 65189- 3755 January, [facility] [id number] [place] [address] 79852- 1478 January, [facility] [id number] [place] [address] 80465- 1238 January, [facility] [id number] [place] [address] 51018- 5416 Dec, Impingement syndrome, shoulder, left M75.42 [facility] [id number] [place] [address] 68295- 1302 Dec, [facility] [id number] [place] [address] 60919- 0197 Nov, [place] [id number] [place] [address] 04826- 8607 Nov, Essential hypertension I10 ; Pain in left shoulder M25.512 ; Amphetamine abuse F15.10 and Callus of foot L84 [facility] [id number] [place] [address] 23724- 5010 Nov, Shoulder pain, left M25.512 [facility] [id number] [place] [address] 36365- 7896 Nov, [facility] [id number] [place] [address] 34992- 5557 Nov, [facility] [id number] [place] [address] 19715- 0853 Nov, Allergic rhinitis, unspecified allergic rhinitis type J30.9 ; Right wrist pain M25.531 ; Back pain M54.9 and Essential hypertension I10 [facility] [address] [place] [address] 96010- 0668 Nov, [facility] [id number] [place] [address] 77533- 3612 Oct, [facility] [id number] [place] [address] 57046- 2979 Oct, Tobacco abuse Z72.0 ; Lumbar back pain M54.5 and Foot callus L84 [facility] [id number] [place] [address] 71843- 8256 Sep, [facility] [id number] [place] [address] 63120- 1542 Sep, Lumbar pain M54.5 ; Essential hypertension I10 ; COPD ( chronic obstructive pulmonary disease) J44.9 ; Anxiety F41.9 and Allergic rhinitis, unspecified allergic rhinitis type J30.9 [facility] [id number] [place] [address] 43715- 7282 Aug, [facility] [id number] [place] [address] 29253- 5072 Aug, [facility] [id number] [place] [address] 26613- 4843 Jul, [facility] [id number] [place] [address] 94106- 6770 Jul, Lumbar back pain M54.5 ; Essential hypertension I10 ; COPD ( chronic obstructive pulmonary disease) J44.9 ; Anxiety F41.9 and Allergic rhinitis J30.9 [facility] [id number] [place] [address] 72639- 9549 Apr, Positive urine drug screen 796.0 and Chronic lumbar pain 724.2 [facility] [id number] [place] [address] 89709- 5466 Apr, [facility] [id number] [place] [address] 76177- 7881 Apr, [facility] [id number] [place] [address] 65986- 6657 Apr, [place] [id number] [place] [address] 43201- 5928 Apr, Lumbago 724.2 ; Unspecified viral hepatitis C without hepatic coma 070.70 ; Unspecified disorder of skin and subcutaneous tissue 709.9 and Long-term use of high-risk medication V58.69 [place] [id number] [place] [address] 65174- 4335 Mar, Vision changes 368.9 ; Allergic rhinitis 477.9 and Callus of foot 700 [place] [id number] [place] [address] 61539- 4342 Mar, [place] [id number] [place] [address] 27864- 0056 Mar, Chronic airway obstruction, not elsewhere classified 496 ; Essential hypertension, benign 401.1 ; Lumbago 724.2 ; Insomnia, unspecified 780.52 ; Anxiety state, unspecified 300.00 and Unspecified disorder of skin and subcutaneous tissue 709.9 [facility] [id number] [place] [address] [id number] Mar, Dental examination V72.2 [place] [id number] [place] [address] 62424- 3791 Mar, [place] [address] 01248- 4034 Feb, Amphetamine and other psychostimulant dependence, unspecified abuse 304.40 [place] [address] 31149- 9850 Feb, Chronic airway obstruction, not elsewhere classified 496 ; Back pain 724.5 and Hypertension 401.9 [place] [id number] [place] [address] 43818- 2409 January, Chronic airway obstruction, not elsewhere classified 496 ; Unspecified disorder of skin and subcutaneous tissue 709.9 ; Lumbago 724.2 ; Essential hypertension, benign 401.1 ; Foot callus 700 and Allergic rhinitis 477.9 [facility] [address] [address] January, [facility] [address] [address]- 9650 January, [facility] [address] [address]- 9272 Dec, [facility] [address] [address]- 6711 Dec, [facility] [address] [address]- 9758 Nov, [facility] [address] [address]- 5766 Nov, [facility] [address] [address]- 8411 Nov, [facility] [address] [address]- 7526 Nov, [facility] [address] [address]- 5055 Nov, [facility] [address] [address]- 9792 Nov, [facility] [address] [address]- 9882 Nov, [facility] [address] [address]- 5062 Nov, [facility] [address] 9954 Nov, [facility] [address] [address]- 7908 Oct, [facility] [id number] [place] [address]- 0691 Oct, 2014 [facility] [place] [facility] [address] [id number] [place] [address]- 7626 Oct, 2014 [facility] [place] [facility] [address] [id number] [place] [address]- 2546 Oct, 2014 [facility] [place] [facility] [address] [id number] [place] [address]- 2756 Oct, 2014 [facility] [place] [facility] [address] [id number] [place] [address]- 2548 Oct, 2014 [facility] [place] [facility] [address] [id number] [place] [address]- 7474 Oct, 2014 [facility] [place] [facility] [address] [facility] [id number] [place] [address]- 1709 Oct, 2014 [facility] [place] [facility] [address] [facility] [id number] [place] [address]- 7755 Oct, 2014 [facility] [place] [facility] [address] [facility] [id number] [place] [address]- 2966 Oct, 2014 [facility] [place] [facility] [address] [facility] [id number] [place] [address]- 8926 Oct, 2014 [facility] [place] [facility] [address] [facility] [id number] [place] [address]- 6666 Oct, 2014 [facility] [place] [facility] [address] [facility] [id number] [place] [address]- 7085 Oct, 2014 [facility] [place] [facility] [address] [facility] [id number] [place] [address]- 5512 Sep, [facility] [place] [facility] [address] [id number] [place] [address]- 8938 Sep, [facility] [place] [facility] [address] [facility] [id number] [place] [address]- 1519 Sep, [facility] [place] [facility] [address] [facility] [id number] [place] [address]- 2728 Sep, [facility] [address] [id number] [place] [address]- 8724 Sep, [facility] [place] [facility] [address] [id number] [place] [address]- 5904 Sep, [facility] [place] [facility] [address] [facility] [id number] [place] [address]- 5510 Sep, [facility] [place] [facility] [address] [id number] [place] [address]- 3557 Sep, [facility] [place] [facility] [address] [id number] [place] [address]- 0365 Aug, [facility] [place] [facility] [address] [id number] [place] [address]- 0570 Aug, [facility] [address] [facility] [id number] [place] [address]- 4675 Aug, [facility] [place] [facility] [address] [id number] [place] [address]- 9934 Aug, [facility] [place] [facility] [address] [id number] [place] [address]- 9732 Aug, [facility] [place] [facility] [address] [facility] [id number] [place] [address]- 9437 Aug, [facility] [place] [facility] [address] [id number] [place] [address]- 3446 Aug, [facility] [place] [facility] [address] [id number] [place] [address]- 7647 Aug, [facility] [place] [facility] [address] [id number] [place] [address]- 7781 18 Aug, 2014 [facility] [place] [facility] [address] [facility] [id number] [place] [address]- 0791 Aug, [facility] [place] [facility] [address] [facility] [id number] [place] [address]- 6021 Aug, [facility] [place] [facility] [address] [id number] [place] [address]- 0966 Aug, [facility] [place] [facility] [address] [id number] [place] [address]- 0179 Aug, [facility] [place] [facility] [address] [id number] [place] [address]- 6815 Aug, [facility] [place] [facility] [address] [id number] [place] [id number] Aug, [facility] [place] [facility] [address] [id number] [place] [address]- 1716 Aug, [facility] [place] [facility] [address] [id number] [place] [address]- 6937 Jul, [facility] [place] [facility] [address] [facility] [id number] [place] [address]- 8048 Jul, [facility] [place] [facility] [address] [id number] [place] [address]- 1330 Jul, [facility] [place] [facility] [address] [id number] [place] [address]- 4456 Jul, [facility] [place] [facility] [address] [id number] [place] [address]- 9903 Jul, [facility] [place] [facility] [address] [facility] [id number] [place] [address]- 1813 Jul, [facility] [place] [facility] [address] [id number] [place] [address]- 4294 Jun, [facility] [place] [facility] [address] [id number] [place] [address]- 7513 Jun, [facility] [place] [facility] [address] [id number] [place] [address]- 7076 Jun, [facility] [place] [facility] [address] [id number] [place] 0675 Jun, [facility] [place] [facility] [address] [id number] [place] [address]- 8188 Jun, [facility] [place] [facility] [address] [id number] [place] [address]- 3162 Jun, 2013 [facility] [place] [facility] [address] [id number] [place] [address]- 4805 Jun, 2013 [facility] [place] [facility] [address] [id number] [place] [address]- 7437 Jun, 2013 [facility] [place] [facility] [address] [id number] [place] [address]- 6346 Jun, 2013 [facility] [place] [facility] [address] [id number] [place] [address]- 5115 Jun, 2013 [facility] [place] [facility] [address] [id number] [place] [address]- 3573 Jun, 2013 [facility] [place] [facility] [address] [id number] [place] [address]- 5451 Jun, 2013 [facility] [place] [facility] [address] [id number] [place] [address]- 0976 Jun, 2013 [facility] [place] [facility] [address] [id number] [place] [address]- 3837 Jun, 2013 [facility] [place] [facility] [address] [id number] [place] [address]- 5152 Jun, 2013 [facility] [place] [facility] [address] [id number] [place] [address]- 8085 Jun, 2013 [facility] [place] [facility] [address] [id number] [place] [address]- 2852 Jun, 2013 [facility] [place] [facility] [address] [id number] [place] [address]- 8924 Jun, 2013 [facility] [place] [facility] [address] [id number] [place] [address]- 5143 Jun, 2013 [facility] [place] [facility] [address] [id number] [place] [address]- 7448 Jun, 2013 [facility] [place] [facility] [address] [id number] [place] [address]- 1152 Jun, [facility] [place] [facility] [address] [id number] [place] [address]- 1963 Jun, [facility] [place] [facility] [address] [id number] [place] [address]- 9724 Jun, [facility] [place] [facility] [address] [id number] [place] [address]- 5361 May, [facility] [place] [facility] [address] [id number] [place] [address]- 7042 May, [facility] [place] [facility] [address] [id number] [place] [address]- 7252 May, [facility] [place] [facility] [address] [id number] [place] [address]- 7998 May, [facility] [place] [facility] [address] [id number] [place] [address]- 6544 May, [facility] [place] [facility] [address] [id number] [place] [address]- 7239 May, [facility] [place] [facility] [address] [id number] [place] [address]- 9440 May, [facility] [place] [facility] [address] [id number] [place] [address]- 4304 May, [facility] [place] [facility] [address] [id number] [place] [address]- 0559 Apr, [facility] [place] [facility] [address] [id number] [place] [address]- 2541 Apr, [facility] [place] [facility] [address] [id number] [place] [address]- 8646 Apr, [facility] [place] [facility] [address] [id number] [place] [address]- 4394 Apr, [facility] [place] [facility] [address] [id number] [place] [address]- 9946 Apr, [facility] [place] [facility] [address] [id number] [place] [address]- 5948 Apr, [facility] [place] [facility] [address] [id number] [place] [address]- 9476 Apr, [facility] [place] [facility] [address] [id number] [place] [address]- 8133 Apr, [facility] [place] [facility] [address] [id number] [place] [address]- 6395 Apr, [facility] [place] [facility] [address] [id number] [place] [address]- 7286 Apr, [facility] [place] [facility] [address] [id number] [place] [address]- 0252 Apr, [facility] [place] [facility] [address] [id number] [place] [address] Apr, [facility] [place] [facility] [address] [id number] [place] [address] Apr, [facility] [place] [facility] [address] [id number] [place] [address] Apr, [facility] [place] [facility] [address] [id number] [place] [address] Apr, [facility] [place] [facility] [address] [id number] [place] [address] Apr, [facility] [place] [facility] [address] [id number] [place] [address] Apr, [facility] [place] [facility] [address] [id number] [place] [address] Apr, [facility] [place] [facility] [address] [id number] [place] [address] Apr, [facility] [place] [facility] [address] [id number] [place] [address]- [address] Apr, [facility] [place] [facility] [address] [id number] [place] [address] Apr, [facility] [place] [facility] [address] [id number] [place] [address]- [address] Apr, [facility] [place] [facility] [address] [id number] [place] [address] Mar, [facility] [place] [facility] [address] [id number] [place] [address] Mar, [facility] [place] [facility] [address] [id number] [place] [address]- [address] Mar, [facility] [place] [facility] [address] [id number] [place] [address] Mar, [facility] [place] [facility] [address] [id number] [place] [address] Mar, [facility] [place] [facility] [address] [id number] [place] [address] Mar, [facility] [place] [facility] [address] [id number] [place] [address]- [address] Mar, [facility] [place] [facility] [address] [id number] [place] [address]- 9031 Mar, [facility] [place] [facility] [address] [id number] [place] [address] Feb, [facility] [place] [facility] [address] [id number] [place] [address] Feb, [facility] [place] [facility] [address] [id number] [place] [address] 39[address] Feb, [facility] [place] [facility] [address] [id number] [place] [address]597 Feb, [facility] [place] [facility] [address] [id number] [place] [address] Feb, [facility] [place] [facility] [address] [id number] [place] [address]- [address] Feb, [facility] [place] [facility] [address] [id number] [place] [address]- [address] Feb, [facility] [address] [id number] [place] [address] January, [facility] [address] [id number] [place] [address] January, [facility] [address] [id number] [place] [address] January, [facility] [address] [id number] [place] [address]- [address] January, [facility] [address] [id number] [place] [address] 265[address] Dec, [facility] [address] [id number] [place] [address]369 Dec, [facility] [address] [id number] [place] [address] Dec, [facility] [address] [id number] [place] [address] Dec, [facility] [address] [id number] [place] [address] Dec, [facility] [address] [id number] [place] [address] Dec, [facility] [address] [id number] [place] [address] Dec, [facility] [address] [id number] [place] [address] Dec, [facility] [place] [facility] [address] [id number] [place] [address] Dec[facility] [place] [facility] [address] [id number] [place] [address] Dec, [facility] [place] [facility] [address] [id number] [place] [address] Nov, [facility] [place] [facility] [address] [id number] [place] [address] Nov, [facility] [place] [facility] [address] [id number] [place] [address] Nov, [facility] [place] [facility] [address] [id number] [place] [address] Nov, [facility] [place] [facility] [address] [id number] [place] [address] Oct, [facility] [place] [facility] [address] [id number] [place] [address] Oct, [facility] [place] [facility] [address] [id number] [place] [address] Oct, [facility] [place] [facility] [address] [id number] [place] [address] Oct, [facility] [place] [facility] [address] [id number] [place] [address] Oct, [facility] [place] [facility] [address] [id number] [place] [address] Oct, [facility] [place] [facility] [address] [id number] [place] [address] Oct, [facility] [place] [facility] [address] [id number] [place] [address] Oct, [facility] [place] [facility] [address] [id number] [place] [address] Sep, [facility] [place] [facility] [address] [id number] [place] [address] Sep, [facility] [place] [facility] [address] [id number] [place] [address] Sep, [facility] [place] [facility] [address] [id number] [place] [address] Sep, [facility] [place] [facility] [address] [id number] [place] [address] 06 Aug, 2012 [facility] [address] [id number] [place] [address] 06 Aug, 2012 [facility] [place] [facility] [address] [id number] [place] [address] Aug, [facility] [address] [id number] [place] [address] Aug, [facility] [place] [facility] [address] [id number] [place] [address] Jul, [facility] [address] [id number] [place] [address] Jul, [facility] [address] [id number] [place] [address] Jul, [facility] [address] [id number] [place] [address] Jul, [facility] [address] [id number] [place] [address] Jun, [facility] [address] [id number] [place] [address] 22 Jun, 2013 [facility] [address] [facility] [id number] [place] [address] 14 Jun, 2013 [facility] [place] [facility] [address] [id number] [place] [address] 14 Jun, 2013 [facility] [place] [facility] [address] [id number] [place] [address] 11 Jun, 2013 [facility] [place] [facility] [address] [id number] [place] [address]- [address] 11 Jun, 2013 [facility] [place] [facility] [address] [id number] [place] [address] 08 Jun, 2013 [facility] [place] [facility] [address] [id number] [place] [address] May, [facility] [place] [facility] [address] [id number] [place] [address] May, [facility] [place] [facility] [address] [id number] [place] [address] May, [facility] [place] [facility] [address] [id number] [place] [address]648 Apr, [facility] [place] [facility] [address] [id number] [place] [address] Apr, [facility] [place] [facility] [address] [id number] [place] [address] Apr, [facility] [place] [facility] [address] [id number] [place] [address] 37[address] Apr, [facility] [place] [facility] [address] [id number] [place] [address] Apr, [facility] [place] [facility] [address] [id number] [place] [address] Mar, [facility] [place] [facility] [address] [id number] [place] [address] 14[address] Mar, [facility] [place] [facility] [address] [id number] [place] [address] Mar, [facility] [place] [facility] [address] [id number] [place] [address] Mar, [facility] [place] [facility] [address] [id number] [place] [address]- [address] Mar, [facility] [place] [facility] [address] [id number] [place] [address] Mar, [facility] [place] [facility] [address] [id number] [place] [address] 58[address] Feb, [facility] [place] [facility] [address] [id number] [place] [address]273 Feb, [facility] [place] [facility] [address] [id number] [place] [address] Feb, [facility] [address] [id number] [place] [address] 6395 Feb, [facility] [place] [facility] [address] [id number] [place] [address]476 Feb, [facility] [place] [facility] [address] [id number] [place] [address]- 1157 Feb, [facility] [place] [facility] [address] [id number] [place] [address] 9763 Feb, [facility] [place] [facility] [address] [id number] [place] [address]- 4765 Feb, [facility] [place] [facility] [address] [id number] [place] [address] Feb, [facility] [address] [id number] [place] [address] January, [facility] [place] [facility] [address] [id number] [place] [address] 9349 January, [facility] [address] [id number] [place] [address]103 January, [facility] [place] [facility] [address] [id number] [place] [address] 6[address] January, [facility] [address] [id number] [place] [address] 4075 January, [facility] [place] [facility] [address] [id number] [place] [address]- 7705 January, [facility] [place] [facility] [address] [id number] [place] [address] 0633 January, [facility] [place] [facility] [address] [id number] [place] [address] January, [facility] [place] [facility] [address] [id number] [place] [address]- 2581 January, [facility] [place] [facility] [address] [id number] [place] [address]- 28[address] January, [facility] [address] [id number] [place] [address]- 9483 Dec, [facility] [place] [facility] [address] [id number] [place] [address]- 6149 Dec, [facility] [address] [id number] [place] [address]- 0799 Dec, [facility] [place] [facility] [address] [id number] [place] [address]- 8903 Dec, [facility] [address] [id number] [place] [address]- 2959 Dec, [facility] [place] [facility] [address] [id number] [place] [address]- 4236 Dec, [facility] [place] [facility] [address] [id number] [place] [address]- 4443 Nov, [facility] [address] [id number] [place] [address]- 6054 Nov, [facility] [place] [facility] [address] [id number] [place] [address]- 2488 Nov, [facility] [address] [id number] [place] [address]- 4891 Oct, [facility] [place] [facility] [address] [id number] [place] [address]- 9209 Oct, [facility] [place] [facility] [address] [id number] [place] [address]- 5199 Oct, [facility] [place] [facility] [address] [id number] [place] [address]- 5161 Oct, [facility] [place] [facility] [address] [id number] [place] [address]- 9103 Oct, [facility] [place] [facility] [address] [id number] [place] [address] Jun, IMMUNIZATIONS No Known Immunizations SOCIAL HISTORY Never Assessed REASON FOR VISIT med refills PLAN OF CARE VITAL SIGNS MEDICATIONS Unknown [...]
--- OUTSIDE RECORDS SUMMARY | 2018-11-29 19:24 | XMS REPORT ---
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 Active 3307768 Problem Pain in left shoulder M25.512 Active 96369434 Problem Back pain M54.9 Active 692766988 Problem Socially inappropriate behavior F99 Active 481265018 Problem Amphetamine abuse F15.10 Active 14545446 ALLERGIES No Information ENCOUNTERS Encounter Location Date Diagnosis [facility] [id number] [place] [address] 15021- 3428 Nov, [facility] [id number] [place] [address] 53091- 0552 Sep, [facility] [id number] [place] [address] 34847- 1717 Aug, [facility] [id number] [place] [address] 42614- 7479 Aug, [facility] [id number] [place] [address] 80354- 8756 Jul, [facility] [id number] [place] [address] 78847 -0458 29 Jul, 2017 Back pain M54.9 [facility] [id number] [place] [address] 23716- 4483 Jul, [facility] [address] [place] [address]- 0029 Jun, [facility] [id number] [place] [address] 84735- 4076 Jun, [facility] [id number] [place] [address] 24166- 2164 Jun, Arthritis M19.90 ; Pain in left shoulder M25.512 and Lumbar back pain M54.5 [facility] [id number] [place] [address] 15744- 2821 May, [facility] [id number] [place] [address] 92626- 5216 Apr, [facility] [id number] [place] [address] 11939- 7697 Apr, [facility] [id number] [place] [address] 45006- 7829 Apr, Essential hypertension I10 and Arthritis M19.90 [facility] [id number] [place] [address] 44434- 6368 Apr, [facility] [id number] [place] [address] 03869- 3737 Mar, [facility] [id number] [place] [address] 42174- 6020 Mar, Lumbar pain M54.5 ; 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 ; Allergic rhinitis, unspecified allergic rhinitis type J30.9 and Hematuria R31.9 [facility] [id number] [place] [address] 03474- 2155 Mar, [facility] [id number] [place] [address] 72895 -2720 January, Open bite, right lower leg, initial encounter S81.851A and Pain in left shoulder M25.512 [facility] [id number] [place] [address] 36726 -6531 Dec, [facility] [address] [address] Dec, Low back pain M54.5 [facility] [id number] [place] [address] 98900- 6986 Aug, [facility] [id number] [place] [address] 39270 -8222 Apr, Perforated left tympanic membrane on examination H72.92 and Deafness in left ear H91.92 [facility] [id number] [place] [address] 09323- 1474 Apr, [facility] [facility] [id number] [place] [address] 81284- 8588 Mar, Lumbar back pain M54.5 ; Essential hypertension I10 ; Chronic obstructive pulmonary disease, unspecified COPD type J44.9 ; Anxiety F41.9 ; Long-term use of high-risk medication Z79.899 and Socially inappropriate behavior F99 [facility] [id number] [place] [address] 43117- 1073 Mar, [facility] [id number] [place] [address] 61574- 7664 Mar, Low back pain M54.5 [facility] [id number] [place] [address] 01555- 8857 Mar, [facility] [id number] [place] [address] 64577- 5794 Mar, [facility] [id number] [place] [address] 93477- 7412 Feb, Impingement syndrome, shoulder, left M75.42 and Superior glenoid labrum lesion of left shoulder, subsequent encounter S43.432D [facility] [id number] [place] [address] 56135- 8824 January, [facility] [id number] [place] [address] 51618- 6545 January, [facility] [id number] [place] [address] 67482- 7285 January, [facility] [address] 89525- 8851 Dec, Impingement syndrome, shoulder, left M75.42 [place] [address] 90326- 3925 Dec, [facility] [address] 98517- 1688 Nov, [facility] [id number] [place] [address] 64886- 2399 Nov, Essential hypertension I10 ; Pain in left shoulder M25.512 ; Amphetamine abuse F15.10 and Callus of foot L84 [facility] [facility] [id number] [place] [address] 12178- 6808 Nov, Shoulder pain, left M25.512 [facility] [id number] [place] [address] 00363- 4886 Nov, [facility] [id number] [place] [address] 30857- 8339 Nov, [facility] [id number] [place] [address] 14099- 5779 Nov, Allergic rhinitis, unspecified allergic rhinitis type J30.9 ; Right wrist pain M25.531 ; Back pain M54.9 and Essential hypertension I10 [facility] [facility] [id number] [place] [address] 00755- 3974 Nov, [facility] [id number] [place] [address] 92636- 6458 Oct, [facility] [id number] [place] [address] 08137- 9864 Oct, Tobacco abuse Z72.0 ; Lumbar back pain M54.5 and Foot callus L84 [place] [address] 58998- 4188 Sep, [facility] [id number] [place] [address] 08778- 3915 Sep, Lumbar pain M54.5 ; Essential hypertension I10 ; COPD ( chronic obstructive pulmonary disease) J44.9 ; Anxiety F41.9 and Allergic rhinitis, unspecified allergic rhinitis type J30.9 [facility] [id number] [place] [address] 74266- 0143 Aug, [facility] [id number] [place] [address] 01567- 1527 Aug, [facility] [facility] [address] 46604- 2168 Jul, [facility] [facility] [id number] [place] [address] 36662- 6520 Jul, Lumbar back pain M54.5 ; Essential hypertension I10 ; COPD ( chronic obstructive pulmonary disease) J44.9 ; Anxiety F41.9 and Allergic rhinitis J30.9 [facility] [id number] [place] [address] 04261- 2918 Apr, Positive urine drug screen 796.0 and Chronic lumbar pain 724.2 [facility] [facility] [id number] [place] [address] 32549- 8258 Apr, [facility] [facility] [id number] [place] [address] 42902- 6295 Apr, [facility] [facility] [id number] [place] [address] 10734- 2484 Apr, [facility] [facility] [id number] [place] [address] 78345- 3932 Apr, Lumbago 724.2 ; Unspecified viral hepatitis C without hepatic coma 070.70 ; Unspecified disorder of skin and subcutaneous tissue 709.9 and Long-term use of high-risk medication V58.69 [facility] [facility] [id number] [place] [address] 73708- 5494 Mar, Vision changes 368.9 ; Allergic rhinitis 477.9 and Callus of foot 700 [facility] [id number] [place] [address] 76813- 3472 Mar, [facility] [id number] [place] [address] 37273- 6827 Mar, Chronic airway obstruction, not elsewhere classified 496 ; Essential hypertension, benign 401.1 ; Lumbago 724.2 ; Insomnia, unspecified 780.52 ; Anxiety state, unspecified 300.00 and Unspecified disorder of skin and subcutaneous tissue 709.9 [facility] [id number] [place] [address] [id number] Mar, Dental examination V72.2 [facility] [id number] [place] [address] 94408- 9078 Mar, [facility] [id number] [place] [address] 30043- 3820 Feb, Amphetamine and other psychostimulant dependence, unspecified abuse 304.40 [facility] [id number] [place] [address] 99621- 0970 Feb, Chronic airway obstruction, not elsewhere classified 496 ; Back pain 724.5 and Hypertension 401.9 [facility] [id number] [place] [address] 24019- 9383 January, Chronic airway obstruction, not elsewhere classified 496 ; Unspecified disorder of skin and subcutaneous tissue 709.9 ; Lumbago 724.2 ; Essential hypertension, benign 401.1 ; Foot callus 700 and Allergic rhinitis 477.9 [facility] [id number] [place] [address] 59677- 0864 January, [facility] [id number] [place] [address] 25692- 7507 January, [facility] [id number] [place] [address] 38100- 7578 Dec, [facility] [address] [place] [address]- 9059 13 Dec, 2014 [facility] [place] [facility] [address] [id number] [place] [address]- 3160 Nov, [facility] [place] [facility] [address] [id number] [place] [address]- 8486 Nov, [facility] [place] [facility] [address] [id number] [place] [address]- 1443 Nov, [facility] [place] [facility] [address] [id number] [place] [address]- 8783 Nov, [facility] [place] [facility] [address] [id number] [place] [address]- 3295 Nov, [facility] [place] [facility] [address] [id number] [place] [address]- 0770 Nov, [facility] [place] [facility] [address] [id number] [place] [address]- 1941 16 Nov, 2014 [facility] [place] [facility] [address] [id number] [place] [address]- 8154 Nov, [facility] [place] [facility] [address] [id number] [place] [address]- 7465 Nov, [facility] [place] [facility] [address] [facility] [id number] [place] [address]- 9824 Oct, 2014 [facility] [place] [facility] [address] [id number] [place] [address]- 8062 Oct, 2014 [facility] [place] [facility] [address] [facility] [id number] [place] [address]- 0855 Oct, 2014 [facility] [place] [facility] [address] [id number] [place] [address]- 2277 Oct, 2014 [facility] [place] [facility] [address] [facility] [id number] [place] [address]- 5276 Oct, 2014 [facility] [place] [facility] [address] [facility] [id number] [place] [address]- 5690 Oct, [facility] [place] [facility] [address] [id number] [place] [address]- 3999 Oct, 2014 [facility] [place] [facility] [address] [id number] [place] [address]- 9052 Oct, 2014 [facility] [place] [facility] [address] [id number] [place] [address]- 6291 Oct, 2014 [facility] [place] [facility] [address] [id number] [place] [address]- 3371 Oct, 2014 [facility] [place] [facility] [address] [id number] [place] [address]- 4112 Oct, [facility] [place] [facility] [address] [id number] [place] [address]- 8935 Oct, [facility] [place] [facility] [address] [id number] [place] [address]- 4850 Oct, [facility] [place] [facility] [address] [id number] [place] [address]- 0720 Sep, [facility] [place] [facility] [address] [id number] [place] [address]- 8158 Sep, [facility] [place] [facility] [address] [id number] [place] [address]- 2569 Sep, [facility] [place] [facility] [address] [id number] [place] [address]- 4307 Sep, [facility] [place] [facility] [address] [id number], [place] [address]- 2076 Sep, [facility] [place] [facility] [address] [id number] [place] [address]- 7626 Sep, [facility] [place] [facility] [address] [id number] [place] [address]- 5128 Sep, [facility] [place] [facility] [address] [id number] [place] [address]- 4265 Sep, [facility] [place] [facility] [address] [id number] [place] 2336 31 Aug, 2014 [facility] [address] [id number] [place] 1456 Aug, [facility] [place] [facility] [address] [id number] [place] [address]- 2856 Aug, [facility] [place] [facility] [address] [id number] [place] 9976 Aug, [facility] [place] [facility] [address] [id number] [place] [address]- 5702 Aug, [facility] [place] [facility] [address] [id number] [place] [address]- 6651 Aug, [facility] [address] [id number] [place] [address]- 8102 Aug, [facility] [place] [facility] [address] [id number] [place] [address]- 7637 Aug, [facility] [address] [id number] [place] [address]- 5200 Aug, [facility] [place] [facility] [address] [id number] [place] [address]- 7068 Aug, [facility] [address] [id number] [place] [address]- 0457 Aug, [facility] [place] [facility] [address] [id number] [place] [address]- 4978 Aug, [facility] [place] [facility] [address] [id number] [place] [address]- 5842 Aug, [facility] [place] [facility] [address] [id number] [place] 4504 Aug, [facility] [place] [facility] [address] [id number] [place] [id number] Aug, [facility] [place] [facility] [address] [id number] [place] [address]- 9371 Aug, [facility] [place] [facility] [address] [id number] [place] [address]- 1655 Jul, [facility] [place] [facility] [address] [id number] [place] [address]- 3667 Jul, [facility] [place] [facility] [address] [id number] [place] [address]- 4654 Jul, [facility] [place] [facility] [address] [id number] [place] [address]- 0570 Jul, [facility] [place] [facility] [address] [id number] [place] [address]- 2818 Jul, [facility] [place] [facility] [address] [id number] [place] [address]- 3838 Jul, [facility] [place] [facility] [address] [id number] [place] [address]- 3657 Jun, [facility] [place] [facility] [address] [id number] [place] [address]- 6290 Jun, [facility] [place] [facility] [address] [id number] [place] [address]- 7117 Jun, [facility] [place] [facility] [address] [id number] [place] [address]- 4926 Jun, [facility] [place] [facility] [address] [id number] [place] [address]- 2415 Jun, [facility] [place] [facility] [address] [id number], [place] [address]- 0803 Jun, [facility] [place] [facility] [address] [id number] [place] [address]- 8241 Jun, [facility] [place] [facility] [address] [id number] [place] [address]- 8921 Jun, [facility] [place] [facility] [address] [id number], [place] [address]- 6429 Jun, [facility] [place] [facility] [address] [id number], [place] [address]- 4504 Jun, 2013 [facility] [place] [facility] [address] [id number] [place] [address]- 6341 Jun, 2013 [facility] [place] [facility] [address] [id number] [place] 8256 Jun, 2013 [facility] [place] [facility] [address] [id number] [place] [address]- 7383 Jun, 2013 [facility] [place] [facility] [address] [id number] [place] [address]- 9341 Jun, 2013 [facility] [place] [facility] [address] [id number] [place] [address]- 1620 Jun, 2013 [facility] [place] [facility] [address] [id number] [place] [address]- 1787 Jun, 2013 [facility] [place] [facility] [address] [facility] [id number] [place] [address]- 3364 Jun, 2013 [facility] [place] [facility] [address] [id number] [place] [address]- 4938 Jun, 2013 [facility] [place] [facility] [address] [facility] [id number] [place] [address]- 4629 Jun, 2013 [facility] [place] [facility] [address] [facility] [id number] [place] [address]- 9894 Jun, 2013 [facility] [place] [facility] [address] [id number], [place] [address]- 8054 Jun, 2013 [facility] [place] [facility] [address] [id number], [place] [address]- 0833 Jun, [facility] [place] [facility] [address] [id number] [place] 2676 Jun, [facility] [place] [facility] [address] [facility] [id number] [place] [address]- 3477 May, 2013 [facility] [place] [facility] [address] [facility] [id number] [place] [address]- 6859 29 May, 2013 [facility] [place] [facility] [address] [id number] [place] [address]- 3904 May, 2013 [facility] [place] [facility] [address] [id number] [place] [address]- 7341 May, [facility] [place] [facility] [address] [id number] [place] [address]- 3706 May, [facility] [place] [facility] [address] [id number] [place] [address]- 9758 May, [facility] [place] [facility] [address] [id number] [place] [address]- 2758 May, [facility] [place] [facility] [address] [id number] [place] [address]- 2098 May, [facility] [place] [facility] [address] [id number] [place] [address]- 4361 Apr, [facility] [place] [facility] [address] [id number] [place] [address]- 3301 Apr, [facility] [place] [facility] [address] [id number] [place] [address]- 0398 Apr, [facility] [place] [facility] [address] [id number] [place] [address]- 5459 Apr, [facility] [place] [facility] [address] [id number] [place] [address]- 1703 Apr, [facility] [place] [facility] [address] [id number] [place] [address]- 5334 Apr, [facility] [place] [facility] [address] [id number] [place] [address]- 3899 Apr, [facility] [place] [facility] [address] [id number] [place] [address]- 5722 Apr, [facility] [place] [facility] [address] [id number] [place] [address]- 1385 Apr, [facility] [place] [facility] [address] [id number] [place] [address]- 4493 Apr, [facility] [place] [facility] [address] [id number] [place] [address]- 3369 Apr, [facility] [place] [facility] [address] [id number] [place] [address]- 1296 Apr, [facility] [place] [facility] [address] [id number] [place] [address]- 1513 Apr, [facility] [place] [facility] [address] [id number] [place] [address]- 8914 Apr, [facility] [place] [facility] [address] [id number] [place] [address]- 4950 Apr, [facility] [place] [facility] [address] [id number] [place] [address]- 8096 Apr, [facility] [place] [facility] [address] [id number] [place] [address]- 8417 Apr, [facility] [place] [facility] [address] [id number] [place] [address]- 8674 Apr, [facility] [place] [facility] [address] [id number] [place] [address] Apr, [facility] [place] [facility] [address] [id number] [place] [address] Apr, [facility] [place] [facility] [address] [id number] [place] [address] Apr, [facility] [place] [facility] [address] [id number] [place] [address] Apr, [facility] [place] [facility] [address] [id number] [place] [address] Mar, [facility] [place] [facility] [address] [id number] [place] [address] Mar, [facility] [place] [facility] [address] [id number] [place] [address] Mar, [facility] [place] [facility] [address] [id number] [place] [address] Mar, [facility] [place] [facility] [address] [id number] [place] [address] 39[address] Mar, [facility] [place] [facility] [address] [id number] [place] [address]- [address]268 Mar, [facility] [place] [facility] [address] [id number] [place] [address]- 9692 Mar, [facility] [place] [facility] [address] [id number] [place] [address]- [address]120 Mar, [facility] [place] [facility] [address] [id number] [place] [address] 8931 Feb, [facility] [place] [facility] [address] [id number] [place] [address]- [address] Feb, [facility] [place] [facility] [address] [id number] [place] [address]- 7031 Feb, [facility] [place] [facility] [address] [id number] [place] [address]- 6958 Feb, [facility] [place] [facility] [address] [id number] [place] [address]- [address]483 Feb, [facility] [place] [facility] [address] [id number] [place] [address]- [address]707 Feb, [facility] [place] [facility] [address] [id number] [place] [address]- [address]45 Feb, [facility] [place] [facility] [address] [id number] [place] [address] January, [facility] [place] [facility] [address] [id number] [place] [address]- [address] January, [facility] [place] [facility] [address] [id number] [place] [address]- 8[address] January, [facility] [place] [facility] [address] [id number] [place] [address]- [address]654 January, [facility] [place] [facility] [address] [id number] [place] [address]- [address]235 Dec, [facility] [place] [facility] [address] [id number] [place] [address]- [address]31 Dec, [facility] [place] [facility] [address] [id number] [place] [address]- [address]96 Dec, [facility] [place] [facility] [address] [id number] [place] [address]- 8473 Dec, [facility] [place] [facility] [address] [id number] [place] [address]- [address]645 Dec, [facility] [place] [facility] [address] [id number] [place] [address]- 3765 Dec, [facility] [place] [facility] [address] [id number] [place] [address]- 2976 Dec, [facility] [place] [facility] [address] [id number] [place] [address]- [address]266 Dec, [facility] [place] [facility] [address] [id number] [place] [address]- [address]193 Dec, [facility] [place] [facility] [address] [id number] [place] [address]- 4030 Dec, [facility] [place] [facility] [address] [id number] [place] [address]- 6069 Nov, [facility] [place] [facility] [address] [id number] [place] [address] Nov, [facility] [place] [facility] [address] [id number] [place] [address]- [address] Nov, [facility] [place] [facility] [address] [id number] [place] [address]- [address]123 Nov, [facility] [place] [facility] [address] [id number] [place] [address]- [address]229 Oct, [facility] [place] [facility] [address] [id number] [place] [address]- 1422 Oct, [facility] [place] [facility] [address] [id number] [place] [address]- 5713 Oct, [facility] [place] [facility] [address] [id number] [place] [address]- 8191 Oct, [facility] [place] [facility] [address] [id number] [place] [address]- 6666 Oct, [facility] [place] [facility] [address] [id number] [place] [address]- 4665 Oct, [facility] [place] [facility] [address] [id number] [place] [address]- 6630 Oct, [facility] [place] [facility] [address] [id number] [place] [address]- [address]136 Oct, [facility] [place] [facility] [address] [id number] [place] [address]- 6736 Sep, [facility] [place] [facility] [address] [id number] [place] [address]- 6439 Sep, [facility] [place] [facility] [address] [id number] [place] [address]- 7921 Sep, [facility] [place] [facility] [address] [facility] [id number] [place] [address]- [address] Sep, [facility] [place] [facility] [address] [id number] [place] [address]- 4087 Aug, [facility] [place] [facility] [address] [id number], [place] [address] Aug, [facility] [place] [facility] [address] [id number] [place] [address]- [address]43 Aug, [facility] [place] [facility] [address] [id number] [place] [address] Aug, [facility] [place] [facility] [address] [id number], [place] [address] Jul, [facility] [place] [facility] [address] [id number] [place] [address] Jul, [facility] [place] [facility] [address] [id number] [place] [address] Jul, [facility] [place] [facility] [address] [id number] [place] [address] Jul, [facility] [place] [facility] [address] [id number] [place] [address] Jun, [facility] [place] [facility] [address] [id number] [place] [address] Jun, [facility] [place] [facility] [address] [id number] [place] [address] Jun, [facility] [place] [facility] [address] [id number] [place] [address] Jun, [facility] [place] [facility] [address] [id number] [place] [address] Jun, [facility] [place] [facility] [address] [id number] [place] [address] Jun, [facility] [place] [facility] [address] [id number] [place] [address] 08 Jun, 2013 [facility] [place] [facility] [address] [id number] [place] [address] 17 May, 2013 [facility] [place] [facility] [address] [id number] [place] [address] May, [facility] [place] [facility] [address] [id number] [place] [address] May, [facility] [place] [facility] [address] [id number] [place] [address] Apr, [facility] [place] [facility] [address] [id number] [place] [address] Apr, [facility] [place] [facility] [address] [id number] [place] [address] Apr, [facility] [place] [facility] [address] [id number] [place] [address] Apr, [facility] [place] [facility] [address] [id number] [place] [address]- [address] Apr, [facility] [place] [facility] [address] [id number] [place] [address] Mar, [facility] [place] [facility] [address] [id number] [place] [address] Mar, [facility] [place] [facility] [address] [id number] [place] [address] Mar, [facility] [place] [facility] [address] [id number] [place] [address] Mar, [facility] [place] [facility] [address] [id number] [place] [address] Mar, [facility] [place] [facility] [address] [id number] [place] [address] Mar, [facility] [place] [facility] [address] [id number] [place] [address] Feb, [facility] [place] [facility] [address] [id number] [place] [address] Feb, [facility] [place] [facility] [address] [id number] [place] [address] Feb, [facility] [place] [facility] [address] [id number] [place] [address] Feb, [facility] [place] [facility] [address] [id number] [place] [address] Feb, [facility] [place] [facility] [address] [id number] [place] [address] Feb, [facility] [place] [facility] [address] [id number] [place] [address] Feb, [facility] [place] [facility] [address] [id number] [place] [address]46 Feb, [facility] [address] [id number] [place] [address] Feb, [facility] [address] [id number] [place] [address] January, [facility] [address] [id number] [place] [address] January, [facility] [address] [id number] [place] [address] January, [facility] [address] [id number] [place] [address] January, [facility] [address] [id number] [place] [address] January, [facility] [address] [id number] [place] [address] January, [facility] [address] [id number] [place] [address] January, [facility] [address] [id number] [place] [address] January, [facility] [address] [id number] [place] [address] January, [facility] [address] [id number] [place] [address] January, [facility] [address] [id number] [place] [address] Dec, [facility] [address] [id number] [place] [address] Dec, [facility] [address] [id number] [place] [address] Dec, [facility] [address] [id number] [place] [address]- [address] Dec, [facility] [id number] [address] Dec, [facility] [id number] [place] [address] Dec, [facility] [id number] [address] Nov, [facility] [id number] [place] [address] Nov, [facility] [id number], [place] [address] Nov, [facility] [id number] [place] [address]- [address] Oct, [facility] [id number] [place] [address] 886766- 2796 Oct, [facility] [id number] [place] [address]- 277[address] Oct, [facility] [id number] [place] [address]- [address] Oct, [facility] [id number] [place] [address]- [address] Oct, [facility] [id number], [place] [address] Jun, IMMUNIZATIONS No Known Immunizations SOCIAL HISTORY Never Assessed REASON FOR VISIT Waiting for call back PLAN OF CARE VITAL SIGNS MEDICATIONS Unknown [...]
--- OUTSIDE RECORDS SUMMARY | 2018-11-29 19:25 | XMS REPORT ---
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 Active 3786640 Problem Pain in left shoulder M25.512 Active 85633802 Problem Back pain M54.9 Active 898513860 Problem Socially inappropriate behavior F99 Active 432316284 Problem Amphetamine abuse F15.10 Active 59995603 ALLERGIES Substance Reaction Event Type Date Status Sulfamethoxazole-Trimethoprim Unknown Drug Allergy Jul, Active ENCOUNTERS Encounter Location Date Diagnosis [facility] [id number] [place] [address] 17072- 5342 Nov, [facility] [id number] [place] [address] 23947- 9779 Sep, [facility] [id number] [place] [address] 40934- 7682 Aug, [facility] [id number] [place] [address] 73745- 7644 Aug, [facility] [id number] [place] [address] 33946- 1193 Jul, [facility] [id number] [place] [address] 03880 -0597 Jul, Back pain M54.9 [facility] [id number] [place] [address] 01964- 9841 Jul, [facility] [id number] [place] [address] 13155- 7897 Jun, [facility] [id number] [place] [address] 21219- 2562 Jun, [facility] [id number] [place] [address] 33366- 0093 Jun, Arthritis M19.90 ; Pain in left shoulder M25.512 and Lumbar back pain M54.5 [facility] [id number] [place] [address] 30031- 7877 May, [facility] [address] 30772- 8886 Apr, [facility] [id number] [place] [address] 85615- 4926 Apr, [place] [address] 27049- 9905 Apr, Essential hypertension I10 and Arthritis M19.90 [facility] [id number] [place] [address] 97483- 1775 Apr, [facility] [id number] [place] [address] 86188- 2654 Mar, [facility] [id number] [place] [address] 45069- 3398 Mar, Lumbar pain M54.5 ; 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 ; Allergic rhinitis, unspecified allergic rhinitis type J30.9 and Hematuria R31.9 [facility] [id number] [place] [address] 28560- 9168 Mar, [facility] [id number] [place] [address] 77350 -0468 January, Open bite, right lower leg, initial encounter S81.851A and Pain in left shoulder M25.512 [facility] [id number] [place] [address] 51928 -4973 Dec, [facility] [id number] [place] [address] 99376 -9106 Dec, Low back pain M54.5 [facility] [id number] [place] [address] 31120- 7570 Aug, [facility] [id number] [place] [address] 12973 -2450 Apr, Perforated left tympanic membrane on examination H72.92 and Deafness in left ear H91.92 [facility] [id number] [place] [address] 37829- 6089 Apr, [facility] [address] 00339- 8174 Mar, Lumbar back pain M54.5 ; Essential hypertension I10 ; Chronic obstructive pulmonary disease, unspecified COPD type J44.9 ; Anxiety F41.9 ; Long-term use of high-risk medication Z79.899 and Socially inappropriate behavior F99 [facility] [id number] [place] [address] 25226- 7004 Mar, [facility] [id number] [place] [address] 11174- 2769 Mar, Low back pain M54.5 [facility] [id number] [place] [address] 23876- 0635 Mar, [facility] [id number] [place] [address] 71989- 9190 Mar, [facility] [id number] [place] [address] 81679- 8769 Feb, Impingement syndrome, shoulder, left M75.42 and Superior glenoid labrum lesion of left shoulder, subsequent encounter S43.432D [facility] [id number] [place] [address] 46497- 4864 January, [facility] [address] 31608- 6182 January, [facility] [id number] [place] [address] 29199- 1905 January, [facility] [id number] [place] [address] 33874- 5430 Dec, Impingement syndrome, shoulder, left M75.42 [facility] [address] 44551- 0529 Dec, [facility] [id number] [place] [address] 45560- 0698 Nov, [facility] [address] 82243- 1919 Nov, Essential hypertension I10 ; Pain in left shoulder M25.512 ; Amphetamine abuse F15.10 and Callus of foot L84 [place] [address] 07376- 4112 Nov, Shoulder pain, left M25.512 [facility] [id number] [place] [address] 01126- 3162 Nov, [facility] [address] 59810- 2917 Nov, [facility] [id number] [place] [address] 70048- 8090 Nov, Allergic rhinitis, unspecified allergic rhinitis type J30.9 ; Right wrist pain M25.531 ; Back pain M54.9 and Essential hypertension I10 [facility] [id number] [place] [address] 56653- 6584 Nov, [facility] [address] 27577- 0634 Oct, [facility] [id number] [place] [address] 97678- 2141 Oct, Tobacco abuse Z72.0 ; Lumbar back pain M54.5 and Foot callus L84 [facility] [id number] [place] [address] 93219- 1484 Sep, [place] [id number] [place] [address] 37549- 5856 Sep, Lumbar pain M54.5 ; Essential hypertension I10 ; COPD ( chronic obstructive pulmonary disease) J44.9 ; Anxiety F41.9 and Allergic rhinitis, unspecified allergic rhinitis type J30.9 [facility] [id number] [place] [address] 39773- 1417 Aug, [place] [id number] [place] [address] 55320- 5368 Aug, [place] [address] 77069- 0164 Jul, [place] [address] 35932- 2942 Jul, Lumbar back pain M54.5 ; Essential hypertension I10 ; COPD ( chronic obstructive pulmonary disease) J44.9 ; Anxiety F41.9 and Allergic rhinitis J30.9 [place] [id number] [place] [address] 45140- 5059 Apr, Positive urine drug screen 796.0 and Chronic lumbar pain 724.2 [place] [id number] [place] [address] 18724- 7837 Apr, [place] [id number] [place] [address] 57444- 1260 Apr, [place] [id number] [place] [address] 19245- 9155 Apr, [place] [id number] [place] [address] 92719- 0970 06 Apr, 2015 Lumbago 724.2 ; Unspecified viral hepatitis C without hepatic coma 070.70 ; Unspecified disorder of skin and subcutaneous tissue 709.9 and Long-term use of high-risk medication V58.69 [place] [address] [place] [address]- 7397 Mar, Vision changes 368.9 ; Allergic rhinitis 477.9 and Callus of foot 700 [facility] [id number] [place] [address] 36957- 0322 Mar, [facility] [id number] [place] [address] 16527- 4127 Mar, Chronic airway obstruction, not elsewhere classified 496 ; Essential hypertension, benign 401.1 ; Lumbago 724.2 ; Insomnia, unspecified 780.52 ; Anxiety state, unspecified 300.00 and Unspecified disorder of skin and subcutaneous tissue 709.9 [facility] [id number] [place] [address] [id number] Mar, Dental examination V72.2 [facility] [id number] [place] [address] 50748- 9260 Mar, [facility] [id number] [place] [address] 97364- 3346 Feb, Amphetamine and other psychostimulant dependence, unspecified abuse 304.40 [facility] [id number] [place] [address] 82870- 5940 Feb, Chronic airway obstruction, not elsewhere classified 496 ; Back pain 724.5 and Hypertension 401.9 [facility] [id number] [place] [address] 20239- 4851 January, Chronic airway obstruction, not elsewhere classified 496 ; Unspecified disorder of skin and subcutaneous tissue 709.9 ; Lumbago 724.2 ; Essential hypertension, benign 401.1 ; Foot callus 700 and Allergic rhinitis 477.9 [facility] [id number] [place] [address] 73451- 4254 January, [facility] [id number] [place] [address] 84169- 6572 January, [facility] [id number] [place] [address] 10357- 4299 Dec, [facility] [place] [facility] [address] [id number] [place] [address]- 3937 13 Dec, 2014 [facility] [place] [facility] [address] [id number] [place] [address]- 6345 27 Nov, 2014 [facility] [place] [facility] [address] [id number] [place] [address]- 0218 Nov, [facility] [place] [facility] [address] [id number] [place] [address]- 0698 Nov, [facility] [place] [facility] [address] [id number] [place] [address]- 2462 Nov, [facility] [place] [facility] [address] [id number] [place] [address]- 4059 Nov, [facility] [place] [facility] [address] [id number] [place] [address]- 7173 Nov, [facility] [place] [facility] [address] [id number] [place] [address]- 4827 16 Nov, 2014 [facility] [place] [facility] [address] [id number] [place] [address]- 4984 Nov, [facility] [place] [facility] [address] [id number] [place] [address]- 6490 Nov, [facility] [place] [facility] [address] [id number] [place] [address]- 9366 Oct, [facility] [place] [facility] [address] [id number] [place] [address]- 2245 Oct, [facility] [place] [facility] [address] [id number] [place] [address]- 9149 Oct, [facility] [place] [facility] [address] [id number] [place] [address]- 0486 Oct, [facility] [place] [facility] [address] [id number] [place] [address]- 7964 Oct, [facility] [place] [facility] [address] [id number] [place] [address]- 8550 Oct, 2014 [facility] [place] [facility] [address] [id number] [place] [address]- 8954 Oct, 2014 [facility] [place] [facility] [address] [id number] [place] [address]- 0366 Oct, 2014 [facility] [place] [facility] [address] [id number] [place] [address]- 7866 Oct, 2014 [facility] [place] [facility] [address] [id number] [place] [address]- 5042 Oct, 2014 [facility] [place] [facility] [address] [id number] [place] [address]- 5016 Oct, 2014 [facility] [place] [facility] [address] [id number] [place] [address]- 6130 Oct, 2014 [facility] [place] [facility] [address] [id number] [place] [address]- 2380 Oct, 2014 [facility] [place] [facility] [address] [id number] [place] [address]- 9813 Sep, [facility] [place] [facility] [address] [id number] [place] [address]- 8940 Sep, [facility] [place] [facility] [address] [facility] [id number] [place] [address]- 6206 Sep, [facility] [place] [facility] [address] [id number] [place] [address]- 3416 Sep, [facility] [place] [facility] [address] [id number] [place] [address]- 1478 Sep, [facility] [place] [facility] [address] [id number] [place] [address]- 7797 Sep, [facility] [place] [facility] [address] [facility] [id number] [place] [address]- 3752 Sep, [facility] [place] [facility] [address] [id number] [place] [address]- 3526 Sep, [facility] [place] [facility] [address] [id number] [place] [address]- 4148 Aug, [facility] [place] [facility] [address] [id number] [place] [address]- 9723 Aug, [facility] [place] [facility] [address] [id number] [place] [address]- 3107 Aug, [facility] [place] [facility] [address] [id number] [place] [address]- 8221 Aug, [facility] [place] [facility] [address] [id number] [place] [address]- 6233 Aug, [facility] [place] [facility] [address] [id number] [place] [address]- 4595 Aug, [facility] [place] [facility] [address] [id number] [place] [address]- 1514 Aug, [facility] [place] [facility] [address] [id number] [place] [address]- 5626 Aug, [facility] [place] [facility] [address] [id number] [place] [address]- 1509 Aug, [facility] [place] [facility] [address] [id number] [place] [address]- 1505 Aug, [facility] [place] [facility] [address] [id number], [place] [address]- 4524 Aug, [facility] [place] [facility] [address] [id number], [place] [address]- 8130 Aug, [facility] [place] [facility] [address] [id number] [place] [address]- 7476 Aug, [facility] [place] [facility] [address] [id number] [place] [address]- 1723 Aug, [facility] [place] [facility] [address] [id number] [place] [address] Aug, [facility] [place] [facility] [address] [id number], [place] [address]- 5998 Aug, [facility] [place] [facility] [address] [id number] [place] [address]- 1399 Jul, [facility] [place] [facility] [address] [id number] [place] [address]- 6176 Jul, [facility] [place] [facility] [address] [facility] [id number] [place] [address]- 0317 Jul, [facility] [place] [facility] [address] [id number] [place] [address]- 4237 Jul, [facility] [place] [facility] [address] [facility] [id number] [place] [address], [place] [address]- 3543 Jul, [facility] [place] [facility] [address] [id number] [place] [address]- 6833 Jul, [facility] [place] [facility] [address] [facility] [id number] [place] [address]- 2645 Jun, [facility] [place] [facility] [address] [id number] [place] [address]- 0635 Jun, [facility] [place] [facility] [address] [facility] [id number] [place] [address]- 8185 Jun, [facility] [place] [facility] [address] [facility] [id number] [place] [address]- 0716 Jun, [facility] [place] [facility] [address] [facility] [id number], [place] [address]- 2233 Jun, [facility] [place] [facility] [address] [facility] [id number], [place] [address]- 7724 Jun, [facility] [place] [facility] [address] [facility] [id number] [place] [address]- 8647 Jun, [facility] [place] [facility] [address] [facility] [id number], [place] [address]- 6358 Jun, [facility] [place] [facility] [address] [facility] [id number] [place] [address]- 4236 Jun, [facility] [place] [facility] [address] [id number] [place] [address]- 6086 Jun, 2013 [facility] [place] [facility] [address] [id number] [place] [address]- 5594 Jun, 2013 [facility] [place] [facility] [address] [id number] [place] [address]- 9323 Jun, 2013 [facility] [place] [facility] [address] [id number] [place] [address]- 8243 Jun, 2013 [facility] [place] [facility] [address] [id number] [place] [address]- 7259 Jun, 2013 [facility] [place] [facility] [address] [id number] [place] [address]- 0632 Jun, 2013 [facility] [place] [facility] [address] [id number] [place] 6456 Jun, 2013 [facility] [place] [facility] [address] [id number] [place] [address]- 9500 Jun, 2013 [facility] [place] [facility] [address] [id number] [place] 4235 Jun, 2013 [facility] [place] [facility] [address] [id number] [place] [address]- 1124 Jun, 2013 [facility] [place] [facility] [address] [id number] [place] 7308 Jun, 2013 [facility] [place] [facility] [address] [id number] [place] [address]- 5360 Jun, 2013 [facility] [place] [facility] [address] [id number] [place] [address]- 2367 Jun, [facility] [place] [facility] [address] [id number] [place] [address]- 2811 Jun, 2013 [facility] [place] [facility] [address] [id number] [place] [address]- 9608 29 May, 2013 [facility] [place] [facility] [address] [id number] [place] [address]- 1554 May, [facility] [place] [facility] [address] [id number] [place] [address]- 0183 May, [facility] [place] [facility] [address] [id number] [place] [address]- 9854 May, [facility] [place] [facility] [address] [id number] [place] [address]- 6896 May, [facility] [place] [facility] [address] [id number] [place] [address]- 0139 May, [facility] [place] [facility] [address] [id number] [place] [address]- 0987 May, [facility] [place] [facility] [address] [id number] [place] [address]- 6683 May, [facility] [place] [facility] [address] [id number] [place] [address]- 5597 Apr, [facility] [place] [facility] [address] [id number] [place] [address]- 6025 Apr, [facility] [place] [facility] [address] [id number] [place] [address]- 7593 Apr, [facility] [place] [facility] [address] [id number] [place] [address]- 9183 Apr, [facility] [place] [facility] [address] [id number] [place] [address]- 4479 Apr, [facility] [place] [facility] [address] [id number] [place] [address]- 6341 Apr, [facility] [place] [facility] [address] [id number] [place] [address]- 5518 Apr, [facility] [place] [facility] [address] [id number] [place] [address]- 4575 Apr, [facility] [place] [facility] [address] [id number] [place] [address]- 8511 Apr, [facility] [place] [facility] [address] [id number] [place] [address]- 4889 Apr, [facility] [place] [facility] [address] [id number] [place] [address]- 7534 Apr, [facility] [place] [facility] [address] [id number] [place] [address]- 9067 Apr, [facility] [place] [facility] [address] [id number] [place] [address]- 1585 Apr, [facility] [place] [facility] [address] [id number] [place] [address]- 8623 Apr, [facility] [place] [facility] [address] [id number] [place] [address]- 0173 Apr, [facility] [place] [facility] [address] [id number] [place] [address]- 0800 Apr, [facility] [place] [facility] [address] [id number] [place] [address]- 7494 Apr, [facility] [place] [facility] [address] [id number] [place] [address]- 8235 Apr, [facility] [place] [facility] [address] [id number] [place] [address]- 6282 Apr, [facility] [place] [facility] [address] [id number] [place] [address]- 0868 Apr, [facility] [place] [facility] [address] [id number] [place] [address]- 9823 Apr, [facility] [place] [facility] [address] [id number] [place] [address]- 8324 Apr, [facility] [place] [facility] [address] [id number] [place] [address]- 4299 Mar, [facility] [place] [facility] [address] [id number] [place] [address]- 7877 Mar, [facility] [place] [facility] [address] [id number] [place] [address]- 9803 Mar, [facility] [place] [facility] [address] [id number] [place] [address]- 9306 Mar, [facility] [place] [facility] [address] [id number] [place] [address]- 1298 Mar, [facility] [place] [facility] [address] [id number] [place] [address] Mar, [facility] [place] [facility] [address] [id number] [place] [address] Mar, [facility] [place] [facility] [address] [id number] [place] [address] Mar, [facility] [place] [facility] [address] [id number] [place] [address] Feb, [facility] [place] [facility] [address] [id number] [place] [address] Feb, [facility] [place] [facility] [address] [id number] [place] [address] Feb, [facility] [place] [facility] [address] [id number] [place] [address] Feb, [facility] [place] [facility] [address] [id number] [place] [address] Feb, [facility] [place] [facility] [address] [id number] [place] [address] Feb, [facility] [place] [facility] [address] [id number] [place] [address] Feb, [facility] [place] [facility] [address] [id number] [place] [address] January, [facility] [place] [facility] [address] [id number] [place] [address] January, [facility] [place] [facility] [address] [id number] [place] [address] January, [facility] [place] [facility] [address] [id number] [place] [address] January, [facility] [place] [facility] [address] [id number] [place] [address] Dec, [facility] [place] [facility] [address] [id number] [place] [address] Dec, [facility] [place] [facility] [address] [id number] [place] [address] Dec, [facility] [place] [facility] [address] [id number] [place] [address] Dec, [facility] [place] [facility] [address] [id number] [place] [address] Dec, [facility] [place] [facility] [address] [id number] [place] [address] Dec, [facility] [place] [facility] [address] [id number] [place] [address] Dec, [facility] [place] [facility] [address] [id number] [place] [address] Dec, [facility] [place] [facility] [address] [id number] [place] [address] Dec, [facility] [place] [facility] [address] [id number] [place] [address] Dec, [facility] [place] [facility] [address] [id number] [place] [address] Nov, [facility] [place] [facility] [address] [id number] [place] [address] Nov, [facility] [place] [facility] [address] [id number] [place] [address] Nov, [facility] [place] [facility] [address] [id number] [place] [address] Nov, [facility] [place] [facility] [address] [id number] [place] [address] Oct, [facility] [place] [facility] [address] [id number] [place] [address] Oct, [facility] [place] [facility] [address] [id number] [place] [address] Oct, [facility] [place] [facility] [address] [id number] [place] [address] Oct, [facility] [place] [facility] [address] [id number] [place] [address] Oct, [facility] [place] [facility] [address] [id number] [place] [address] Oct, [facility] [place] [facility] [address] [id number] [place] [address] Oct, [facility] [place] [facility] [address] [id number] [place] [address] Oct, [facility] [place] [facility] [address] [id number] [place] [address] Sep, [facility] [place] [facility] [address] [id number] [place] [address] Sep, [facility] [place] [facility] [address] [facility] [id number] [place] [address]- [address] Sep, [facility] [place] [facility] [address] [id number] [place] [address] Sep, [facility] [place] [facility] [address] [id number] [place] [address]- [address] Aug, [facility] [place] [facility] [address] [id number] [place] [address] Aug, [facility] [place] [facility] [address] [id number] [place] [address] Aug, [facility] [place] [facility] [address] [id number] [place] [address] Aug, [facility] [place] [facility] [address] [id number] [place] [address] Jul, [facility] [place] [facility] [address] [id number] [place] [address] Jul, [facility] [place] [facility] [address] [id number] [place] [place] [address] Jul, [facility] [place] [facility] [address] [id number] [place] [address] Jul, [facility] [place] [facility] [address] [id number] [place] [address] Jun, [facility] [place] [facility] [address] [id number] [place] [address] Jun, [facility] [place] [facility] [address] [id number] [place] [address] Jun, [facility] [place] [facility] [address] [id number] [place] [address] Jun, [facility] [place] [facility] [address] [id number] [place] [address] Jun, [facility] [place] [facility] [address] [id number] [place] [address] Jun, [facility] [place] [facility] [address] [id number] [place] [address] Jun, [facility] [place] [facility] [address] [id number], [place] [address] 17 May, 2013 [facility] [place] [facility] [address] [id number] [place] [address] May, [facility] [place] [facility] [address] [id number] [place] [address] May, [facility] [place] [facility] [address] [id number] [place] [address] Apr, [facility] [place] [facility] [address] [id number] [place] [address] Apr, [facility] [place] [facility] [address] [id number] [place] [address] Apr, [facility] [address] [id number] [place] [address] Apr, [facility] [place] [facility] [address] [id number] [place] [address] Apr, [facility] [address] [id number] [place] [address] Mar, [facility] [place] [facility] [address] [id number] [place] [address] Mar, [facility] [address] [id number] [place] [address] Mar, [facility] [address] [id number] [place] [address] Mar, [facility] [place] [facility] [address] [id number] [place] [address] Mar, [facility] [address] [id number] [place] [address] Mar, [facility] [place] [facility] [address] [id number] [place] [address] Feb, [facility] [address] [id number] [place] [address] Feb, [facility] [place] [facility] [address] [id number] [place] [address] Feb, [facility] [place] [facility] [address] [id number] [place] [address] Feb, [facility] [place] [facility] [address] [id number] [place] [address]666 Feb, [facility] [place] [facility] [address] [id number] [place] [address] Feb, [facility] [place] [facility] [address] [id number] [place] [address] Feb, [facility] [address] [id number] [place] [address] Feb, [facility] [address] [id number] [place] [address] Feb, [facility] [address] [id number] [place] [address] January, [facility] [address] [id number] [place] [address] January, [facility] [address] [id number] [place] [address] January, [facility] [address] [id number] [place] [address] January, [facility] [address] [id number] [place] [address] January, [facility] [address] [id number] [place] [address] January, [facility] [address] [id number] [place] [address] January, [facility] [address] [id number] [place] [address] January, [facility] [address] [id number] [place] [address] January, [facility] [place] [facility] [address] [id number] [place] [address]- [address] January, [facility] [place] [facility] [address] [id number] [place] [address] Dec, [facility] [place] [facility] [address] [id number] [place] [address]096 Dec, [facility] [place] [facility] [address] [id number] [place] [address]657 Dec, [facility] [place] [facility] [address] [id number], [place] [address] Dec, [facility] [address] [address] Dec, [facility] [id number] [address] Dec, [facility] [id number] [place] [address] Nov, [facility] [id number] [place] [address]- [address] Nov, [facility] [id number] [place] [address]- 6664 Nov, [facility] [id number] [place] [address]- [address] Oct, [facility] [id number] [place] [address]- [address] Oct, [facility] [id number] [place] [address]- [address]33 Oct, [facility] [id number] [place] [address]- 28[address] Oct, [facility] [address] [address] Oct, [facility] [address], [place] [address] Jun, IMMUNIZATIONS No Known Immunizations SOCIAL HISTORY Never Assessed REASON FOR VISIT back and leg pain JStrasserRN PLAN OF CARE VITAL SIGNS Height 71 in 2017-08-16 Weight 173 lbs 2017-08-16 Temperature 99.5 degrees Fahrenheit 2017-08-16 Heart Rate 84 bpm 2017-08-16 Respiratory Rate 22 2017-08-16 BMI 24.13 kg/m2 2017-08-16 Blood pressure systolic 126 mmHg 2017-08-16 Blood pressure diastolic 64 mmHg 2017-08-16 MEDICATIONS Medication Instructions Dosage Frequency Start Date End Date Duration Status Advair HFA 230-21 mcg/act Inhalation Twice a day 2 puffs by Inhalation route 2 times per day 12h 23 Oct, 2014 Not-Taking SSD 1 % APPLY TO AFFECTED AREA TWICE DAILY NEEDED 10 Not- Taking Diclofenac Sodium 75 MG Orally Twice a day 1 tablet by Oral route 2 times per day PRN for pain 12h Oct, Not-Taking Loratadine 10 MG TAKE ONE TABLET BY MOUTH TWICE DAILY NEEDED 15 Not-Taking Ventolin HFA 108 (90 Base) MCG/ACT Inhalation 4 times a day 2 puffs as needed 6h Not-Taking RESULTS No Results PROCEDURES Procedure Date Ordered Result Body Site [facility] VISIT ESTABLISHED PATIENT Aug 16, 2017 INSTRUCTIONS MEDICATIONS ADMINISTERED No Known Medications [...]
--- OUTSIDE RECORDS SUMMARY | 2018-11-29 19:26 | XMS REPORT ---
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 Active 2638665 Problem Pain in left shoulder M25.512 Active 45104110 Problem Back pain M54.9 Active 053764744 Problem Socially inappropriate behavior F99 Active 194808329 Problem Amphetamine abuse F15.10 Active 67835357 ALLERGIES No Information ENCOUNTERS Encounter Location Date Diagnosis [facility] [id number] [place] [address] 36020- 8883 Nov, [facility] [id number] [place] [address] 26371- 7371 Sep, [facility] [id number] [place] [address] 16603- 4153 Aug, [facility] [id number] [place] [address] 72409- 7731 Aug, [facility] [id number] [place] [address] 81228- 9302 Jul, [facility] [id number] [place] [address] 34304 -6198 29 Jul, 2017 Back pain M54.9 [facility] [id number] [place] [address] 40479- 5144 Jul, [facility] [address] [place] [address]- 5236 Jun, [facility] [id number] [place] [address] 68821- 2009 Jun, [facility] [id number] [place] [address] 92566- 0973 Jun, Arthritis M19.90 ; Pain in left shoulder M25.512 and Lumbar back pain M54.5 [facility] [id number] [place] [address] 81901- 6546 May, [facility] [id number] [place] [address] 89300- 9496 Apr, [facility] [id number] [place] [address] 02701- 2414 Apr, [facility] [id number] [place] [address] 09236- 8600 Apr, Essential hypertension I10 and Arthritis M19.90 [facility] [id number] [place] [address] 12219- 3938 Apr, [facility] [id number] [place] [address] 48233- 9318 Mar, [facility] [id number] [place] [address] 37594- 2511 Mar, Lumbar pain M54.5 ; 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 ; Allergic rhinitis, unspecified allergic rhinitis type J30.9 and Hematuria R31.9 [facility] [id number] [place] [address] 69187- 3455 Mar, [facility] [id number] [place] [address] 11869 -5048 January, Open bite, right lower leg, initial encounter S81.851A and Pain in left shoulder M25.512 [facility] [id number] [place] [address] 24064 -8990 Dec, [facility] [address] [address]80 Dec, Low back pain M54.5 [facility] [id number] [place] [address] 73170- 1956 Aug, [facility] [id number] [place] [address] 94838 -3577 Apr, Perforated left tympanic membrane on examination H72.92 and Deafness in left ear H91.92 [facility] [id number] [place] [address] 79997- 1446 Apr, [facility] [id number] [place] [address] 82123- 7528 Mar, Lumbar back pain M54.5 ; Essential hypertension I10 ; Chronic obstructive pulmonary disease, unspecified COPD type J44.9 ; Anxiety F41.9 ; Long-term use of high-risk medication Z79.899 and Socially inappropriate behavior F99 [facility] [id number] [place] [address] 19694- 6958 Mar, [facility] [id number] [place] [address] 60184- 1370 Mar, Low back pain M54.5 [facility] [id number] [place] [address] 43968- 7901 Mar, [facility] [id number] [place] [address] 26712- 6473 Mar, [facility] [id number] [place] [address] 80256- 1789 Feb, Impingement syndrome, shoulder, left M75.42 and Superior glenoid labrum lesion of left shoulder, subsequent encounter S43.432D [facility] [id number] [place] [address] 20854- 8974 January, [facility] [id number] [place] [address] 13498- 4489 January, [facility] [id number] [place] [address] 01614- 7587 January, [facility] [address] 14487- 5345 Dec, Impingement syndrome, shoulder, left M75.42 [facility] [address] 02357- 2588 Dec, [facility] [address] 45216- 4932 Nov, [facility] [id number] [place] [address] 52381- 7581 Nov, Essential hypertension I10 ; Pain in left shoulder M25.512 ; Amphetamine abuse F15.10 and Callus of foot L84 [facility] [id number] [place] [address] 09561- 2917 Nov, Shoulder pain, left M25.512 [facility] [id number] [place] [address] 53558- 0250 Nov, [facility] [id number] [place] [address] 21191- 2641 Nov, [facility] [id number] [place] [address] 28530- 6590 Nov, Allergic rhinitis, unspecified allergic rhinitis type J30.9 ; Right wrist pain M25.531 ; Back pain M54.9 and Essential hypertension I10 [facility] [id number] [place] [address] 30407- 2206 Nov, [facility] [id number] [place] [address] 34246- 3133 Oct, [facility] [id number] [place] [address] 41100- 2966 Oct, Tobacco abuse Z72.0 ; Lumbar back pain M54.5 and Foot callus L84 [facility] [address] 41043- 6863 Sep, [facility] [id number] [place] [address] 84461- 0787 Sep, Lumbar pain M54.5 ; Essential hypertension I10 ; COPD ( chronic obstructive pulmonary disease) J44.9 ; Anxiety F41.9 and Allergic rhinitis, unspecified allergic rhinitis type J30.9 [facility] [id number] [place] [address] 13965- 2271 Aug, [facility] [id number] [place] [address] 11676- 7083 Aug, [facility] [address] 45001- 5140 Jul, [facility] [id number] [place] [address] 29863- 3290 Jul, Lumbar back pain M54.5 ; Essential hypertension I10 ; COPD ( chronic obstructive pulmonary disease) J44.9 ; Anxiety F41.9 and Allergic rhinitis J30.9 [facility] [id number] [place] [address] 30161- 2994 Apr, Positive urine drug screen 796.0 and Chronic lumbar pain 724.2 [facility] [id number] [place] [address] 11480- 4972 Apr, [facility] [id number] [place] [address] 30197- 7215 Apr, [facility] [id number] [place] [address] 83334- 2590 Apr, [facility] [id number] [place] [address] 66985- 0173 Apr, Lumbago 724.2 ; Unspecified viral hepatitis C without hepatic coma 070.70 ; Unspecified disorder of skin and subcutaneous tissue 709.9 and Long-term use of high-risk medication V58.69 [facility] [id number] [place] [address] 17775- 4292 Mar, Vision changes 368.9 ; Allergic rhinitis 477.9 and Callus of foot 700 [facility] [id number] [place] [address] 83090- 1672 Mar, [facility] [id number] [place] [address] 52604- 4351 Mar, Chronic airway obstruction, not elsewhere classified 496 ; Essential hypertension, benign 401.1 ; Lumbago 724.2 ; Insomnia, unspecified 780.52 ; Anxiety state, unspecified 300.00 and Unspecified disorder of skin and subcutaneous tissue 709.9 [facility] [id number] [place] [address] [id number] Mar, Dental examination V72.2 [facility] [id number] [place] [address] 26520- 6566 Mar, [facility] [id number] [place] [address] 95573- 7705 Feb, Amphetamine and other psychostimulant dependence, unspecified abuse 304.40 [facility] [id number] [place] [address] 43568- 3879 Feb, Chronic airway obstruction, not elsewhere classified 496 ; Back pain 724.5 and Hypertension 401.9 [facility] [id number] [place] [address] 82230- 8578 January, Chronic airway obstruction, not elsewhere classified 496 ; Unspecified disorder of skin and subcutaneous tissue 709.9 ; Lumbago 724.2 ; Essential hypertension, benign 401.1 ; Foot callus 700 and Allergic rhinitis 477.9 [facility] [id number] [place] [address] 31505- 2355 January, [facility] [id number] [place] [address] 92244- 9184 January, [facility] [id number] [place] [address] 34910- 7703 Dec, [facility] [address] [place] [address]- 0598 13 Dec, 2014 [facility] [place] [facility] [address] [id number] [place] [address]- 7509 Nov, [facility] [place] [facility] [address] [id number] [place] [address]- 1476 Nov, [facility] [place] [facility] [address] [id number] [place] [address]- 8383 Nov, [facility] [place] [facility] [address] [id number] [place] [address]- 5881 Nov, [facility] [place] [facility] [address] [id number] [place] [address]- 8673 Nov, [facility] [place] [facility] [address] [id number] [place] [address]- 3818 Nov, [facility] [place] [facility] [address] [id number] [place] [address]- 0781 16 Nov, 2014 [facility] [place] [facility] [address] [id number] [place] [address]- 8454 Nov, [facility] [place] [facility] [address] [id number] [place] [address]- 2174 Nov, [facility] [place] [facility] [address] [facility] [id number] [place] [address]- 1600 Oct, 2014 [facility] [place] [facility] [address] [id number] [place] [address]- 0366 Oct, 2014 [facility] [place] [facility] [address] [facility] [id number] [place] [address]- 0853 Oct, 2014 [facility] [place] [facility] [address] [id number] [place] [address]- 9514 Oct, 2014 [facility] [place] [facility] [address] [facility] [id number] [place] [address]- 9336 Oct, 2014 [facility] [place] [facility] [address] [facility] [id number] [place] [address]- 8497 Oct, [facility] [place] [facility] [address] [id number] [place] [address]- 5741 Oct, 2014 [facility] [place] [facility] [address] [id number] [place] [address]- 5847 Oct, 2014 [facility] [place] [facility] [address] [id number] [place] [address]- 8497 Oct, 2014 [facility] [place] [facility] [address] [id number] [place] [address]- 1018 Oct, 2014 [facility] [place] [facility] [address] [id number] [place] [address]- 1393 Oct, [facility] [place] [facility] [address] [id number] [place] [address]- 4483 Oct, [facility] [place] [facility] [address] [id number] [place] [address]- 4235 Oct, [facility] [place] [facility] [address] [id number] [place] [address]- 8228 Sep, [facility] [place] [facility] [address] [id number] [place] [address]- 4465 Sep, [facility] [place] [facility] [address] [id number] [place] [address]- 6735 Sep, [facility] [place] [facility] [address] [id number] [place] [address]- 4779 Sep, [facility] [place] [facility] [address] [id number] [address]- 3015 Sep, [facility] [place] [facility] [address] [id number] [place] [address]- 0970 Sep, [facility] [place] [facility] [address] [id number] [place] [address]- 8092 Sep, [facility] [place] [facility] [address] [id number] [place] [address]- 4621 Sep, [facility] [place] [facility] [address] [id number] [place] 7983 31 Aug, 2014 [facility] [address] [id number] [place] 3986 Aug, [facility] [place] [facility] [address] [id number] [place] [address]- 4666 Aug, [facility] [place] [facility] [address] [id number] [place] 1176 Aug, [facility] [place] [facility] [address] [id number] [place] [address]- 2899 Aug, [facility] [place] [facility] [address] [id number] [place] [address]- 4940 Aug, [facility] [address] [id number] [place] [address]- 4251 Aug, [facility] [place] [facility] [address] [id number] [place] [address]- 3217 Aug, [facility] [address] [id number] [place] [address]- 3696 Aug, [facility] [place] [facility] [address] [id number] [place] [address]- 3063 Aug, [facility] [address] [id number] [place] [address]- 0657 Aug, [facility] [place] [facility] [address] [id number] [place] [address]- 5479 Aug, [facility] [place] [facility] [address] [id number] [place] [address]- 6302 Aug, [facility] [place] [facility] [address] [id number] [place] 7124 Aug, [facility] [place] [facility] [address] [id number] [place] [id number] Aug, [facility] [place] [facility] [address] [id number] [place] [address]- 2265 Aug, [facility] [place] [facility] [address] [id number] [place] [address]- 8212 Jul, [facility] [place] [facility] [address] [id number] [place] [address]- 4959 Jul, [facility] [place] [facility] [address] [id number] [place] [address]- 9327 Jul, [facility] [place] [facility] [address] [id number] [place] [address]- 1215 Jul, [facility] [place] [facility] [address] [id number] [place] [address]- 5518 Jul, [facility] [place] [facility] [address] [id number] [place] [address]- 2718 Jul, [facility] [place] [facility] [address] [id number] [place] [address]- 1105 Jun, [facility] [place] [facility] [address] [id number] [place] [address]- 2922 Jun, [facility] [place] [facility] [address] [id number] [place] [address]- 8293 Jun, [facility] [place] [facility] [address] [id number] [place] [address]- 7486 Jun, [facility] [place] [facility] [address] [id number] [place] [address]- 1779 Jun, [facility] [place] [facility] [address] [id number], [place] [address]- 3923 Jun, [facility] [place] [facility] [address] [id number] [place] [address]- 7250 Jun, [facility] [place] [facility] [address] [id number] [place] [address]- 8009 Jun, [facility] [place] [facility] [address] [id number] [address]- 6316 Jun, [facility] [place] [facility] [address] [id number], [place] [address]- 1856 Jun, 2013 [facility] [place] [facility] [address] [id number] [place] [address]- 1366 Jun, 2013 [facility] [place] [facility] [address] [id number] [place] 6545 Jun, 2013 [facility] [place] [facility] [address] [id number] [place] [address]- 9315 Jun, 2013 [facility] [place] [facility] [address] [id number] [place] [address]- 8333 Jun, 2013 [facility] [place] [facility] [address] [id number] [place] [address]- 8904 Jun, 2013 [facility] [place] [facility] [address] [id number] [place] [address]- 1036 Jun, 2013 [facility] [place] [facility] [address] [facility] [id number] [place] [address]- 2766 Jun, 2013 [facility] [place] [facility] [address] [id number] [place] [address]- 8850 Jun, 2013 [facility] [place] [facility] [address] [facility] [id number] [place] [address]- 7753 Jun, 2013 [facility] [place] [facility] [address] [facility] [id number] [place] [address]- 7288 Jun, 2013 [facility] [place] [facility] [address] [id number], [place] [address]- 2846 Jun, 2013 [facility] [place] [facility] [address] [id number], [place] [address]- 0661 Jun, [facility] [place] [facility] [address] [id number] [place] 2915 Jun, [facility] [place] [facility] [address] [facility] [id number] [place] [address]- 3945 May, 2013 [facility] [place] [facility] [address] [facility] [id number] [place] [address]- 7501 29 May, 2013 [facility] [place] [facility] [address] [id number] [place] [address]- 8528 May, 2013 [facility] [place] [facility] [address] [id number] [place] [address]- 6105 May, [facility] [place] [facility] [address] [id number] [place] [address]- 8006 May, [facility] [place] [facility] [address] [id number] [place] [address]- 4730 May, [facility] [place] [facility] [address] [id number] [place] [address]- 2664 May, [facility] [place] [facility] [address] [id number] [place] [address]- 4482 May, [facility] [place] [facility] [address] [id number] [place] [address]- 1615 Apr, [facility] [place] [facility] [address] [id number] [place] [address]- 6081 Apr, [facility] [place] [facility] [address] [id number] [place] [address]- 8500 Apr, [facility] [place] [facility] [address] [id number] [place] [address]- 0163 Apr, [facility] [place] [facility] [address] [id number] [place] [address]- 7317 Apr, [facility] [place] [facility] [address] [id number] [place] [address]- 2529 Apr, [facility] [place] [facility] [address] [id number] [place] [address]- 2203 Apr, [facility] [place] [facility] [address] [id number] [place] [address]- 2570 Apr, [facility] [place] [facility] [address] [id number] [place] [address]- 4086 Apr, [facility] [place] [facility] [address] [id number] [place] [address]- 9435 Apr, [facility] [place] [facility] [address] [id number] [place] [address]- 5274 Apr, [facility] [place] [facility] [address] [id number] [place] [address]- 4547 Apr, [facility] [place] [facility] [address] [id number] [place] [address]- 3226 Apr, [facility] [place] [facility] [address] [id number] [place] [address]- 7327 Apr, [facility] [place] [facility] [address] [id number] [place] [address]- 4623 Apr, [facility] [place] [facility] [address] [id number] [place] [address]- 5306 Apr, [facility] [place] [facility] [address] [id number] [place] [address]- 1869 Apr, [facility] [place] [facility] [address] [id number] [place] [address]- 9600 Apr, [facility] [place] [facility] [address] [id number] [place] [address]- 8557 Apr, [facility] [place] [facility] [address] [id number] [place] [address] Apr, [facility] [place] [facility] [address] [id number] [place] [address] Apr, [facility] [place] [facility] [address] [id number] [place] [address] Apr, [facility] [place] [facility] [address] [id number] [place] [address] Mar, [facility] [place] [facility] [address] [id number] [place] [address] Mar, [facility] [place] [facility] [address] [id number] [place] [address] Mar, [facility] [place] [facility] [address] [id number] [place] [address] Mar, [facility] [place] [facility] [address] [id number] [place] [address] Mar, [facility] [place] [facility] [address] [id number] [place] [address] Mar, [facility] [place] [facility] [address] [id number] [place] [address] Mar, [facility] [place] [facility] [address] [id number] [place] [address] Mar, [facility] [place] [facility] [address] [id number] [place] [address] Feb, [facility] [place] [facility] [address] [id number] [place] [address] Feb, [facility] [place] [facility] [address] [id number] [place] [address] Feb, [facility] [place] [facility] [address] [id number] [place] [address] Feb, [facility] [place] [facility] [address] [id number] [place] [address] Feb, [facility] [place] [facility] [address] [id number] [place] [address] Feb, [facility] [place] [facility] [address] [id number] [place] [address] Feb, [facility] [place] [facility] [address] [id number] [place] [address] January, [facility] [place] [facility] [address] [id number] [place] [address] January, [facility] [place] [facility] [address] [id number] [place] [address] January, [facility] [place] [facility] [address] [id number] [place] [address] January, [facility] [place] [facility] [address] [id number] [place] [address] Dec, [facility] [place] [facility] [address] [id number] [place] [address] Dec, [facility] [place] [facility] [address] [id number] [place] [address]- [address] Dec, [facility] [place] [facility] [address] [id number] [place] [address] Dec, [facility] [place] [facility] [address] [id number] [place] [address] Dec, [facility] [place] [facility] [address] [id number] [place] [address]65 Dec, [facility] [place] [facility] [address] [id number] [place] [address] Dec, [facility] [place] [facility] [address] [id number] [place] [address] Dec, [facility] [place] [facility] [address] [id number] [place] [address] Dec, [facility] [place] [facility] [address] [id number] [place] [address] Dec, [facility] [place] [facility] [address] [id number] [place] [address] 47[address] Nov, [facility] [place] [facility] [address] [id number] [place] [address] Nov, [facility] [place] [facility] [address] [id number] [place] [address] Nov, [facility] [place] [facility] [address] [id number] [place] [address] Nov, [facility] [place] [facility] [address] [id number] [place] [address] Oct, [facility] [place] [facility] [address] [id number] [place] [address] Oct, [facility] [place] [facility] [address] [id number] [place] [address] Oct, [facility] [place] [facility] [address] [id number] [place] [address]16 Oct, [facility] [place] [facility] [address] [id number] [place] [address]36 Oct, [facility] [place] [facility] [address] [id number] [place] [address] Oct, [facility] [place] [facility] [address] [id number] [place] [address]- [address] Oct, [facility] [place] [facility] [address] [id number] [place] [address] Oct, [facility] [place] [facility] [address] [id number] [place] [address] Sep, [facility] [place] [facility] [address] [id number] [place] [address] Sep, [facility] [place] [facility] [address] [id number] [place] [address] Sep, [facility] [place] [facility] [address] [facility] [id number] [place] [address]- [address] Sep, [facility] [place] [facility] [address] [id number] [place] [address] Aug, [facility] [place] [facility] [address] [id number] [address] Aug, [facility] [place] [facility] [address] [id number] [place] [address] Aug, [facility] [place] [facility] [address] [id number] [place] [address] Aug, [facility] [place] [facility] [address] [id number] [address] Jul, [facility] [place] [facility] [address] [id number] [place] [address] Jul, [facility] [place] [facility] [address] [id number] [place] [address] Jul, [facility] [place] [facility] [address] [address] [id number] [place] [address] Jul, [facility] [place] [facility] [address] [id number] [place] [address] Jun, [facility] [place] [facility] [address] [id number] [place] [address] Jun, [facility] [place] [facility] [address] [id number] [place] [address] Jun, [facility] [place] [facility] [address] [id number] [place] [address] Jun, [facility] [place] [facility] [address] [id number] [place] [address] Jun, [facility] [place] [facility] [address] [id number] [place] [address] Jun, [facility] [place] [facility] [address] [id number] [place] [address] 08 Jun, 2013 [facility] [place] [facility] [address] [id number] [place] [address] 17 May, 2013 [facility] [place] [facility] [address] [id number] [place] [address] May, [facility] [place] [facility] [address] [id number] [place] [address] May, [facility] [place] [facility] [address] [id number] [place] [address] Apr, [facility] [place] [facility] [address] [id number] [place] [address] Apr, [facility] [place] [facility] [address] [id number] [place] [address] Apr, [facility] [place] [facility] [address] [id number] [place] [address] Apr, [facility] [place] [facility] [address] [id number] [place] [address] Apr, [facility] [place] [facility] [address] [id number] [place] [address] Mar, [facility] [place] [facility] [address] [id number] [place] [address] 267[address] Mar, [facility] [place] [facility] [address] [id number] [place] [address] Mar, [facility] [place] [facility] [address] [id number] [place] [address] Mar, [facility] [place] [facility] [address] [id number] [place] [address]698 Mar, [facility] [place] [facility] [address] [id number] [place] [address] Mar, [facility] [place] [facility] [address] [id number] [place] [address] Feb, [facility] [place] [facility] [address] [id number] [place] [address] Feb, [facility] [place] [facility] [address] [id number] [place] [address] Feb, [facility] [place] [facility] [address] [id number] [place] [address] Feb, [facility] [place] [facility] [address] [id number] [place] [address]69 Feb, [facility] [place] [facility] [address] [id number] [place] [address] 239[address] Feb, [facility] [place] [facility] [address] [id number] [place] [address]68 Feb, [facility] [place] [facility] [address] [id number] [place] [address] Feb, [facility] [address] [id number] [place] [address]662 Feb, [facility] [address] [id number] [place] [address] January, [facility] [address] [id number] [place] [address] January, [facility] [address] [id number] [place] [address]64 January, [facility] [address] [id number] [place] [address] January, [facility] [address] [id number] [place] [address] January, [facility] [address] [id number] [place] [address] January, [facility] [address] [id number] [place] [address] January, [facility] [address] [id number] [place] [address] January, [facility] [address] [id number] [place] [address] 132[address] January, [facility] [address] [id number] [place] [address] January, [facility] [address] [id number] [place] [address]339 Dec, [facility] [address] [id number] [place] [address] 2857 Dec, [facility] [address] [id number] [place] [address] 7946 Dec, [facility] [address] [id number] [place] [address] Dec, [facility] [id number] [address] Dec, [facility] [id number] [place] [address]- [address] Dec, [facility] [id number] [address] Nov, [facility] [id number] [place] [id number]- [address]38 Nov, [facility] [id number] [place] [address]- [address]117 Nov, [facility] [id number] [place] [address]- [address]804 Oct, [facility] [id number] [place] [address]- 6096 Oct, [facility] [id number] [place] [address]- [address]180 Oct, [facility] [id number] [place] [address]- [address] Oct, [facility] [id number] [address] Oct, [facility] [id number] [place] [address] Jun, IMMUNIZATIONS No Known Immunizations SOCIAL HISTORY Never Assessed REASON FOR VISIT Taranalfonso PLAN OF CARE VITAL SIGNS MEDICATIONS Unknown [...]
--- OUTSIDE RECORDS SUMMARY | 2018-11-29 19:27 | XMS REPORT ---
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 Active 9545209 Problem Pain in left shoulder M25.512 Active 67504743 Problem Back pain M54.9 Active 722987056 Problem Socially inappropriate behavior F99 Active 751126884 Problem Amphetamine abuse F15.10 Active 17849709 ALLERGIES No Information ENCOUNTERS Encounter Location Date Diagnosis [facility] [id number], [place] [address] Feb, [facility] [id number] [place] [address] 53706- 7516 Nov, [facility] [id number], [place] [address] Sep, [facility] [id number] [place] [address] 57711- 7881 Aug, [facility] [id number] [place] [address] 55655- 7097 Aug, [facility] [id number] [place] [address] 10092- 7573 Jul, [facility] [address], [place] [address] Jul, Back pain M54.9 [facility] [address] [place] [address] Jul, [facility] [id number] [place] [address] 82886- 3964 Jun, [facility] [id number] [place] [address] 62126- 1053 Jun, [facility] [id number] [place] [address] 68501- 9059 Jun, Arthritis M19.90 ; Pain in left shoulder M25.512 and Lumbar back pain M54.5 [facility] [id number] [place] [address] 26426- 3349 May, [facility] [id number] [place] [address] 60744- 0045 Apr, [facility] [id number] [place] [address] 06004- 5738 Apr, [facility] [id number] [place] [address] 25460- 4170 Apr, Essential hypertension I10 and Arthritis M19.90 [facility] [id number] [place] [address] 82790- 7024 Apr, [facility] [id number] [place] [address] 24229- 7562 Mar, [facility] [id number] [place] [address] 08513- 0540 Mar, Lumbar pain M54.5 ; 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 ; Allergic rhinitis, unspecified allergic rhinitis type J30.9 and Hematuria R31.9 [facility] [id number] [place] [address] 58495- 7041 Mar, [facility] [id number] [place] [address] 82612 -5015 January, Open bite, right lower leg, initial encounter S81.851A and Pain in left shoulder M25.512 [facility] [address] [place] [address] 04416 -3135 Dec, [facility] [id number] [place] [address] 24472 -8925 Dec, Low back pain M54.5 [facility] [id number] [place] [address] 68674- 3764 Aug, [facility] [id number] [place] [address] 48932 -6135 Apr, Perforated left tympanic membrane on examination H72.92 and Deafness in left ear H91.92 [facility] [id number] [place] [address] 70447- 1882 Apr, [facility] [id number] [place] [address] 91005- 5304 Mar, Lumbar back pain M54.5 ; Essential hypertension I10 ; Chronic obstructive pulmonary disease, unspecified COPD type J44.9 ; Anxiety F41.9 ; Long-term use of high-risk medication Z79.899 and Socially inappropriate behavior F99 [facility] [id number] [place] [address] 51489- 2526 Mar, [facility] [id number] [place] [address] 06878- 5977 Mar, Low back pain M54.5 [facility] [id number] [place] [address] 04262- 5295 Mar, [facility] [id number] [place] [address] 65648- 2272 Mar, [facility] [id number] [place] [address] 76036- 4694 Feb, Impingement syndrome, shoulder, left M75.42 and Superior glenoid labrum lesion of left shoulder, subsequent encounter S43.432D [facility] [id number] [place] [address] 04767- 4430 January, [facility] [id number] [place] [address] 02140- 1075 January, [facility] [address] 07118- 4104 January, [facility] [id number] [place] [address] 66740- 9577 Dec, Impingement syndrome, shoulder, left M75.42 [facility] [facility] [address] 25097- 5266 Dec, [facility] [id number] [place] [address] 46020- 3676 Nov, [facility] [id number] [place] [address] 00451- 3898 Nov, Essential hypertension I10 ; Pain in left shoulder M25.512 ; Amphetamine abuse F15.10 and Callus of foot L84 [facility] [id number] [place] [address] 19594- 5328 Nov, Shoulder pain, left M25.512 [facility] [id number] [place] [address] 60860- 6312 Nov, [facility] [id number] [place] [address] 62937- 3250 Nov, [facility] [id number] [place] [address] 82846- 2297 Nov, Allergic rhinitis, unspecified allergic rhinitis type J30.9 ; Right wrist pain M25.531 ; Back pain M54.9 and Essential hypertension I10 [facility] [id number] [place] [address] 98626- 9116 Nov, [facility] [id number] [place] [address] 06209- 9105 Oct, [facility] [id number] [place] [address] 76894- 9734 Oct, Tobacco abuse Z72.0 ; Lumbar back pain M54.5 and Foot callus L84 [facility] [id number] [place] [address] 66969- 6435 Sep, [facility] [id number] [place] [address] 89875- 4268 Sep, Lumbar pain M54.5 ; Essential hypertension I10 ; COPD ( chronic obstructive pulmonary disease) J44.9 ; Anxiety F41.9 and Allergic rhinitis, unspecified allergic rhinitis type J30.9 [facility] [id number] [place] [address] 08320- 5275 Aug, [facility] [address] 19080- 8150 Aug, [facility] [address] 71550- 3641 Jul, [facility] [address] 34923- 7931 Jul, Lumbar back pain M54.5 ; Essential hypertension I10 ; COPD ( chronic obstructive pulmonary disease) J44.9 ; Anxiety F41.9 and Allergic rhinitis J30.9 [facility] [id number] [place] [address] 70421- 5295 Apr, Positive urine drug screen 796.0 and Chronic lumbar pain 724.2 [facility] [id number] [place] [address] 08123- 0536 Apr, [facility] [id number] [place] [address] 33959- 2933 Apr, [facility] [id number] [place] [address] 06610- 2976 Apr, [facility] [id number] [place] [address] 77255- 4298 Apr, Lumbago 724.2 ; Unspecified viral hepatitis C without hepatic coma 070.70 ; Unspecified disorder of skin and subcutaneous tissue 709.9 and Long-term use of high-risk medication V58.69 [facility] [address] [place] [address] 84226- 0555 Mar, Vision changes 368.9 ; Allergic rhinitis 477.9 and Callus of foot 700 [facility] [id number] [place] [address] 17832- 3012 Mar, [facility] [address] 91011- 4713 Mar, Chronic airway obstruction, not elsewhere classified 496 ; Essential hypertension, benign 401.1 ; Lumbago 724.2 ; Insomnia, unspecified 780.52 ; Anxiety state, unspecified 300.00 and Unspecified disorder of skin and subcutaneous tissue 709.9 [facility] [id number] [place] [address] [id number] Mar, Dental examination V72.2 [id number] [place] [address] 27627- 5320 Mar, [facility] [id number] [place] [address] 93774- 7105 Feb, Amphetamine and other psychostimulant dependence, unspecified abuse 304.40 [facility] [id number] [place] [address] 18604- 1305 Feb, Chronic airway obstruction, not elsewhere classified 496 ; Back pain 724.5 and Hypertension 401.9 [facility] [id number] [place] [address] 83950- 6958 January, Chronic airway obstruction, not elsewhere classified 496 ; Unspecified disorder of skin and subcutaneous tissue 709.9 ; Lumbago 724.2 ; Essential hypertension, benign 401.1 ; Foot callus 700 and Allergic rhinitis 477.9 [facility] [id number] [place] [address] 70393- 0145 January, [facility] [id number] [place] [address] 42701- 2455 January, [facility] [id number] [address]- 1253 14 Dec, 2014 [facility] [place] [facility] [address] [id number] [place] [address]- 6484 13 Dec, 2014 [facility] [place] [facility] [address] [id number] [place] [address]- 8258 27 Nov, 2014 [facility] [place] [facility] [address] [id number] [place] [address]- 9597 27 Nov, 2014 [facility] [place] [facility] [address] [id number] [place] [address]- 4361 20 Nov, 2014 [facility] [place] [facility] [address] [id number] [place] [address]- 0407 20 Nov, 2014 [facility] [place] [facility] [address] [facility] [id number] [place] [address]- 2535 17 Nov, 2014 [facility] [place] [facility] [address] [id number] [place] [address]- 0797 17 Nov, 2014 [facility] [place] [facility] [address] [facility] [place] [place] [id number] [place] [address]- 4362 16 Nov, 2014 [facility] [place] [facility] [address] [id number] [place] [address]- 2600 Nov, [facility] [place] [facility] [address] [facility] [place] [id number] [place] [address]- 6304 Nov, [facility] [place] [facility] [address] [id number] [place] [address]- 0886 Oct, 2014 [facility] [place] [facility] [address] [id number] [place] [address]- 1618 23 Oct, 2014 [facility] [place] [facility] [address] [id number] [place] [address]- 8746 17 Oct, 2014 [facility] [place] [facility] [address] [facility] [id number] [place] [address]- 2546 17 Oct, 2014 [facility] [place] [facility] [address] [facility] [place] [id number] [place] [address]- 2844 12 Oct, 2014 [facility] [place] [facility] [address] [id number] [place] [address]- 8567 Oct, 2014 [facility] [place] [facility] [address] [id number] [place] [address]- 4715 Oct, 2014 [facility] [place] [facility] [address] [id number] [place] [address]- 3791 Oct, 2014 [facility] [place] [facility] [address] [id number] [place] [address]- 1181 Oct, 2014 [facility] [place] [facility] [address] [id number] [place] [address]- 8877 Oct, 2014 [facility] [place] [facility] [address] [id number] [place] [address]- 2876 Oct, 2014 [facility] [place] [facility] [address] [id number] [place] [address]- 5853 Oct, 2014 [facility] [place] [facility] [address] [id number] [place] [address]- 9647 Oct, [facility] [place] [facility] [address] [id number] [place] [address]- 0166 Sep, [facility] [place] [facility] [address] [id number] [place] [address]- 9617 Sep, [facility] [place] [facility] [address] [id number] [place] [address]- 3187 Sep, [facility] [place] [facility] [address] [id number] [place] [address]- 0205 Sep, [facility] [place] [facility] [address] [id number] [place] [address]- 9068 Sep, [facility] [place] [facility] [address] [id number] [place] [address]- 4356 Sep, [facility] [place] [facility] [address] [facility] [id number] [place] [address]- 3541 Sep, [facility] [place] [facility] [address] [id number] [place] [address]- 9376 Sep, [facility] [address] [id number] [place] 0546 Aug, [facility] [place] [facility] [address] [id number] [place] 9316 Aug, [facility] [place] [facility] [address] [id number] [place] [address]- 4056 Aug, [facility] [place] [facility] [address] [id number] [place] 8257 Aug, [facility] [place] [facility] [address] [id number] [place] 4246 Aug, [facility] [place] [facility] [address] [id number] [place] [address]- 4565 Aug, [facility] [place] [facility] [address] [id number] [place] [address]- 3761 Aug, [facility] [address] [id number] [place] [address]- 7030 Aug, [facility] [place] [facility] [address] [id number] [place] [address]- 4479 Aug, [facility] [address] [id number] [place] [address]- 5450 Aug, [facility] [place] [facility] [address] [id number] [place] [address]- 3216 Aug, [facility] [place] [facility] [address] [id number] [place] [address]- 7566 Aug, [facility] [place] [facility] [address] [id number] [place] [address]- 7976 Aug, [facility] [place] [facility] [address] [id number] [place] [address]- 2256 Aug, [facility] [place] [facility] [address] [id number] [place] [address] Aug, [facility] [place] [facility] [address] [id number] [place] [address]- 1104 Aug, [facility] [place] [facility] [address] [id number] [place] [address]- 9069 Jul, [facility] [place] [facility] [address] [id number] [place] [address]- 5239 Jul, [facility] [place] [facility] [address] [id number] [place] [address]- 1736 Jul, [facility] [place] [facility] [address] [id number] [place] [address]- 3040 Jul, [facility] [place] [facility] [address] [id number] [place] [address]- 1379 Jul, [facility] [place] [facility] [address] [id number] [place] [address]- 9970 Jul, [facility] [place] [facility] [address] [id number] [place] [address]- 3928 Jun, [facility] [place] [facility] [address] [id number] [place] [address]- 2450 Jun, [facility] [place] [facility] [address] [id number], [place] [address]- 4071 Jun, [facility] [place] [facility] [address] [id number], [place] [address]- 8826 Jun, [facility] [place] [facility] [address] [id number], [place] [address]- 0310 Jun, [facility] [place] [facility] [address] [id number] [place] [address]- 1520 Jun, [facility] [place] [facility] [address] [id number] [place] [address]- 8532 Jun, [facility] [place] [facility] [address] [id number], [place] [address]- 2302 Jun, [facility] [place] [facility] [address] [id number], [place] [address]- 5901 Jun, 2013 [facility] [place] [facility] [address] [id number] [place] [address]- 5328 Jun, 2013 [facility] [place] [facility] [address] [id number] [place] [address]- 2659 Jun, 2013 [facility] [place] [facility] [address] [id number] [place] [address]- 1442 Jun, 2013 [facility] [place] [facility] [address] [id number] [place] [address]- 5013 Jun, 2013 [facility] [place] [facility] [address] [id number] [place] [address]- 7672 Jun, 2013 [facility] [place] [facility] [address] [id number] [place] [address]- 5267 Jun, 2013 [facility] [place] [facility] [address] [facility] [id number] [place] [address]- 9306 Jun, 2013 [facility] [place] [facility] [address] [id number] [place] [address]- 7054 Jun, 2013 [facility] [place] [facility] [address] [facility] [id number] [place] [address]- 5241 Jun, 2013 [facility] [place] [facility] [address] [facility] [id number], [place] [address]- 3854 Jun, 2013 [facility] [place] [facility] [address] [id number], [place] [address]- 0342 Jun, 2013 [facility] [place] [facility] [address] [id number], [place] [address]- 4455 Jun, 2013 [facility] [place] [facility] [address] [id number], [place] [address]- 8818 Jun, 2013 [facility] [place] [facility] [address] [facility] [id number], [place] [address]- 7429 Jun, 2013 [facility] [place] [facility] [address] [facility] [id number], [place] [address]- 3409 May, 2013 [facility] [place] [facility] [address] [id number] [place] [address]- 6896 29 May, 2013 [facility] [place] [facility] [address] [id number] [place] [address]- 2336 May, 2013 [facility] [place] [facility] [address] [id number] [place] [address] 2546 May, 2013 [facility] [place] [facility] [address] [id number] [place] [address] 2546 May, 2013 [facility] [place] [facility] [address] [id number] [place] [address] 2548 May, 2013 [facility] [place] [facility] [address] [id number] [place] [address]- 1279 May, [facility] [place] [facility] [address] [id number] [place] [address]- 4135 May, [facility] [place] [facility] [address] [id number] [place] [address]- 2743 Apr, [facility] [place] [facility] [address] [id number] [place] [address]- 2789 Apr, [facility] [place] [facility] [address] [id number] [place] [address]- 9730 Apr, [facility] [place] [facility] [address] [id number] [place] [address]- 7353 Apr, [facility] [place] [facility] [address] [id number] [place] [address]- 9771 Apr, [facility] [place] [facility] [address] [id number] [place] [address]- 2545 Apr, [facility] [place] [facility] [address] [id number] [place] [address]- 7056 Apr, [facility] [place] [facility] [address] [id number] [place] [address]- 2548 Apr, [facility] [place] [facility] [address] [id number] [place] [address]- 5034 Apr, [facility] [place] [facility] [address] [id number] [place] [address]- 3873 Apr, [facility] [place] [facility] [address] [id number] [place] [address]- 3572 Apr, [facility] [place] [facility] [address] [id number] [place] [address]- 6782 Apr, [facility] [place] [facility] [address] [id number] [place] [address]- 2495 Apr, [facility] [place] [facility] [address] [id number] [place] [address]- 7368 Apr, [facility] [place] [facility] [address] [id number] [place] [address]- 3719 Apr, [facility] [place] [facility] [address] [id number] [place] [address]- 0036 Apr, [facility] [place] [facility] [address] [id number] [place] [address] Apr, [facility] [place] [facility] [address] [id number] [place] [address] Apr, [facility] [place] [facility] [address] [id number] [place] [address] Apr, [facility] [place] [facility] [address] [id number] [place] [address] Apr, [facility] [place] [facility] [address] [id number] [place] [address] Apr, [facility] [place] [facility] [address] [id number] [place] [address] Apr, [facility] [place] [facility] [address] [id number] [place] [address] Mar, [facility] [place] [facility] [address] [id number] [place] [address] Mar, [facility] [place] [facility] [address] [id number] [place] [address] Mar, [facility] [place] [facility] [address] [id number] [place] [address] Mar, [facility] [place] [facility] [address] [id number] [place] [address] Mar, [facility] [place] [facility] [address] [id number] [place] [address] Mar, [facility] [place] [facility] [address] [id number] [place] [address] Mar, [facility] [place] [facility] [address] [id number] [place] [address] Mar, [facility] [place] [facility] [address] [id number] [place] [address] Feb, [facility] [place] [facility] [address] [id number] [place] [address] Feb, [facility] [place] [facility] [address] [id number] [place] [address] Feb, [facility] [place] [facility] [address] [id number] [place] [address] Feb, [facility] [place] [facility] [address] [id number] [place] [address] Feb, [facility] [place] [facility] [address] [id number] [place] [address] Feb, [facility] [place] [facility] [address] [id number] [place] [address] Feb, [facility] [place] [facility] [address] [id number] [place] [address] January, [facility] [place] [facility] [address] [id number] [place] [address] January, [facility] [place] [facility] [address] [id number] [place] [address] January, [facility] [place] [facility] [address] [id number] [place] [address] January, [facility] [place] [facility] [address] [id number] [place] [address] Dec, [facility] [place] [facility] [address] [id number] [place] [address] Dec, [facility] [place] [facility] [address] [id number] [place] [address]- [address] Dec, [facility] [place] [facility] [address] [id number] [place] [address]- [address] Dec, [facility] [place] [facility] [address] [id number] [place] [address]- 2012 Dec, [facility] [place] [facility] [address] [id number] [place] [address] Dec, [facility] [place] [facility] [address] [id number] [place] [address] Dec, [facility] [place] [facility] [address] [id number] [place] [address]- [address] Dec, [facility] [place] [facility] [address] [id number] [place] [address] Dec, [facility] [place] [facility] [address] [id number] [place] [address] Dec, [facility] [place] [facility] [address] [id number] [place] [address] Nov, [facility] [place] [facility] [address] [id number] [place] [address] Nov, [facility] [place] [facility] [address] [id number] [place] [address] Nov, [facility] [place] [facility] [address] [id number] [place] [address]- [address] Nov, [facility] [place] [facility] [address] [id number] [place] [address]- [address] Oct, [facility] [place] [facility] [address] [id number] [place] [address] Oct, [facility] [place] [facility] [address] [id number] [place] [address] Oct, [facility] [place] [facility] [address] [id number] [place] [address]- [address]686 Oct, [facility] [place] [facility] [address] [id number] [place] [address] Oct, [facility] [place] [facility] [address] [id number] [place] [address]- [address] Oct, [facility] [place] [facility] [address] [id number] [place] [address]- [address] Oct, [facility] [place] [facility] [address] [id number] [place] [address]- [address] Oct, [facility] [place] [facility] [address] [id number] [place] [address]- [address] Sep, [facility] [place] [facility] [address] [id number] [place] [address] Sep, [facility] [place] [facility] [address] [facility] [place] [id number] [place] [address] Sep, [facility] [place] [facility] [address] [id number] [place] [address] Sep, [facility] [place] [facility] [address] [id number], [place] [address] Aug, [facility] [place] [facility] [address] [id number] [place] [address] Aug, [facility] [place] [facility] [address] [facility] [place] [id number] [place] [address] Aug, [facility] [place] [facility] [address] [id number], [place] [address] Aug, [facility] [place] [facility] [address] [id number] [place] [address] Jul, [facility] [place] [facility] [address] [id number] [place] [address] Jul, [facility] [place] [facility] [address] [id number] [place] [address] Jul, [facility] [place] [facility] [address] [id number] [place] [address] Jul, [facility] [place] [facility] [address] [id number] [place] [address] Jun, [facility] [place] [facility] [address] [id number] [place] [address] Jun, [facility] [place] [facility] [address] [id number] [place] [address] Jun, [facility] [place] [facility] [address] [id number] [place] [address] Jun, [facility] [place] [facility] [address] [id number] [place] [address] Jun, [facility] [place] [facility] [address] [id number] [place] [address] Jun, [facility] [place] [facility] [address] [id number] [place] [address]- [address] 08 Jun, 2013 [facility] [place] [facility] [address] [id number], [place] [address] 17 May, 2013 [facility] [place] [facility] [address] [id number] [place] [address] May, [facility] [place] [facility] [address] [id number] [place] [address] May, [facility] [place] [facility] [address] [id number] [place] [address] Apr, [facility] [place] [facility] [address] [id number] [place] [address] Apr, [facility] [place] [facility] [address] [id number] [place] [address] Apr, [facility] [place] [facility] [address] [id number] [place] [address]- [address] Apr, [facility] [place] [facility] [address] [id number] [place] [address]- [address] Apr, [facility] [place] [facility] [address] [id number] [place] [address] Mar, [facility] [place] [facility] [address] [id number] [place] [address] Mar, [facility] [place] [facility] [address] [id number] [place] [address] Mar, [facility] [place] [facility] [address] [id number] [place] [address] Mar, [facility] [place] [facility] [address] [id number] [place] [address] Mar, [facility] [place] [facility] [address] [id number] [place] [address] Mar, [facility] [place] [facility] [address] [id number] [place] [address] Feb, [facility] [place] [facility] [address] [id number] [place] [address] Feb, [facility] [place] [facility] [address] [id number] [place] [address] Feb, [facility] [place] [facility] [address] [id number] [place] [address] Feb, [facility] [place] [facility] [address] [id number] [place] [address] Feb, [facility] [place] [facility] [address] [id number] [place] [address] Feb, [facility] [place] [facility] [address] [id number] [place] [address] Feb, [facility] [address] [id number] [place] [address] Feb, [facility] [address] [id number] [place] [address] Feb, [facility] [address] [id number] [place] [address] 289[address] January, [facility] [address] [id number] [place] [address] 7846 January, [facility] [address] [id number] [place] [address] 279[address] January, [facility] [address] [id number] [place] [address]- [address]96 January, [facility] [address] [id number] [place] [address] January, [facility] [address] [id number] [place] [address] January, [facility] [address] [id number] [place] [address] January, [facility] [address] [id number] [place] [address] January, [facility] [address] [id number] [place] [address]- 5536 January, [facility] [address] [id number] [place] [address]- 2546 January, [facility] [address] [id number] [place] [address]- [address]16 Dec, [facility] [address] [id number] [place] [address]- 6316 Dec, [facility] [address] [id number] [place] [address] Dec, [facility] [address] [address] Dec, [facility] [address], [place] [address] Dec, [facility] [address], [place] [address] Dec, [facility] [id number] [place] [address] Nov, [facility] [address], [place] [address] Nov, [facility] [id number] [place] [address] Nov, [facility] [id number] [place] [address]- [address]28 Oct, [facility] [id number] [place] [address]- [address] Oct, [facility] [id number] [place] [address]- 1917 Oct, [facility] [address], [place] [address] Oct, [facility] [address], [place] [address] Oct, [facility] [address] [address] Jun, IMMUNIZATIONS No Known Immunizations SOCIAL HISTORY Never Assessed REASON FOR VISIT med refill PLAN OF CARE VITAL SIGNS MEDICATIONS Medication Instructions Dosage Frequency Start Date End Date Duration Status Loratadine 10 mg Orally Once a day 1 tablet 24h Active RESULTS No Results PROCEDURES No Known [...]
--- OUTSIDE RECORDS SUMMARY | 2018-11-29 19:29 | XMS REPORT ---
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 Active 6061889 Problem Pain in left shoulder M25.512 Active 41834826 Problem Back pain M54.9 Active 200855688 Problem Socially inappropriate behavior F99 Active 992114271 Problem Amphetamine abuse F15.10 Active 91776573 ALLERGIES No Information ENCOUNTERS Encounter Location Date Diagnosis [facility] [id number] [place] [address] 60708- 0647 Nov, [facility] [id number] [place] [address] 39613- 6380 Sep, [facility] [id number] [place] [address] 01451- 8780 Aug, [facility] [id number] [place] [address] 04886- 2197 Aug, [facility] [id number] [place] [address] 89185- 3585 Jul, [facility] [id number] [place] [address] 40141 -0300 29 Jul, 2017 Back pain M54.9 [facility] [id number] [place] [address] 55281- 1715 Jul, [facility] [address] [place] [address]- 4589 Jun, [facility] [id number] [place] [address] 64179- 7140 Jun, [facility] [id number] [place] [address] 66797- 2996 Jun, Arthritis M19.90 ; Pain in left shoulder M25.512 and Lumbar back pain M54.5 [facility] [id number] [place] [address] 23327- 1752 May, [facility] [id number] [place] [address] 17774- 3900 Apr, [facility] [id number] [place] [address] 03298- 6286 Apr, [facility] [id number] [place] [address] 88611- 3689 Apr, Essential hypertension I10 and Arthritis M19.90 [facility] [id number] [place] [address] 88502- 2198 Apr, [facility] [id number] [place] [address] 49530- 4858 Mar, [facility] [id number] [place] [address] 30674- 3556 Mar, Lumbar pain M54.5 ; 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 ; Allergic rhinitis, unspecified allergic rhinitis type J30.9 and Hematuria R31.9 [facility] [id number] [place] [address] 31495- 6211 Mar, [facility] [id number] [place] [address] 56866 -9425 January, Open bite, right lower leg, initial encounter S81.851A and Pain in left shoulder M25.512 [facility] [id number] [place] [address] 22462 -4618 Dec, [facility] [address] [address] Dec, Low back pain M54.5 [facility] [id number] [place] [address] 30184- 1715 Aug, [facility] [id number] [place] [address] 13308 -8108 Apr, Perforated left tympanic membrane on examination H72.92 and Deafness in left ear H91.92 [facility] [id number] [place] [address] 18207- 3919 Apr, [facility] [id number] [place] [address] 98324- 9158 Mar, Lumbar back pain M54.5 ; Essential hypertension I10 ; Chronic obstructive pulmonary disease, unspecified COPD type J44.9 ; Anxiety F41.9 ; Long-term use of high-risk medication Z79.899 and Socially inappropriate behavior F99 [facility] [id number] [place] [address] 51861- 8854 Mar, [facility] [id number] [place] [address] 11432- 4134 Mar, Low back pain M54.5 [facility] [id number] [place] [address] 26416- 8660 Mar, [facility] [id number] [place] [address] 89299- 4732 Mar, [facility] [id number] [place] [address] 03408- 4956 Feb, Impingement syndrome, shoulder, left M75.42 and Superior glenoid labrum lesion of left shoulder, subsequent encounter S43.432D [facility] [id number] [place] [address] 53384- 7652 January, [facility] [id number] [place] [address] 52184- 5146 January, [facility] [id number] [place] [address] 72340- 2773 January, [facility] [address] 87582- 3223 Dec, Impingement syndrome, shoulder, left M75.42 [facility] [address] 55402- 3056 Dec, [facility] [address] 49479- 6566 Nov, [facility] [id number] [place] [address] 91485- 9075 Nov, Essential hypertension I10 ; Pain in left shoulder M25.512 ; Amphetamine abuse F15.10 and Callus of foot L84 [facility] [id number] [place] [address] 09519- 5107 Nov, Shoulder pain, left M25.512 [facility] [id number] [place] [address] 21408- 3123 Nov, [facility] [id number] [place] [address] 56751- 0462 Nov, [facility] [id number] [place] [address] 27246- 2761 Nov, Allergic rhinitis, unspecified allergic rhinitis type J30.9 ; Right wrist pain M25.531 ; Back pain M54.9 and Essential hypertension I10 [facility] [id number] [place] [address] 23967- 5664 Nov, [facility] [id number] [place] [address] 50262- 5179 Oct, [facility] [id number] [place] [address] 02007- 1152 Oct, Tobacco abuse Z72.0 ; Lumbar back pain M54.5 and Foot callus L84 [facility] [address] 80607- 3928 Sep, [facility] [id number] [place] [address] 23675- 3345 Sep, Lumbar pain M54.5 ; Essential hypertension I10 ; COPD ( chronic obstructive pulmonary disease) J44.9 ; Anxiety F41.9 and Allergic rhinitis, unspecified allergic rhinitis type J30.9 [facility] [id number] [place] [address] 68115- 3354 Aug, [facility] [id number] [place] [address] 37081- 8253 Aug, [facility] [address] 85884- 1178 Jul, [facility] [id number] [place] [address] 23941- 4677 Jul, Lumbar back pain M54.5 ; Essential hypertension I10 ; COPD ( chronic obstructive pulmonary disease) J44.9 ; Anxiety F41.9 and Allergic rhinitis J30.9 [facility] [id number] [place] [address] 20473- 0702 Apr, Positive urine drug screen 796.0 and Chronic lumbar pain 724.2 [facility] [id number] [place] [address] 79706- 8835 Apr, [facility] [id number] [place] [address] 64245- 2004 Apr, [facility] [id number] [place] [address] 38041- 9265 Apr, [facility] [id number] [place] [address] 67711- 3650 Apr, Lumbago 724.2 ; Unspecified viral hepatitis C without hepatic coma 070.70 ; Unspecified disorder of skin and subcutaneous tissue 709.9 and Long-term use of high-risk medication V58.69 [facility] [id number] [place] [address] 81524- 1971 Mar, Vision changes 368.9 ; Allergic rhinitis 477.9 and Callus of foot 700 [facility] [id number] [place] [address] 91987- 3587 Mar, [facility] [id number] [place] [address] 16144- 1054 Mar, Chronic airway obstruction, not elsewhere classified 496 ; Essential hypertension, benign 401.1 ; Lumbago 724.2 ; Insomnia, unspecified 780.52 ; Anxiety state, unspecified 300.00 and Unspecified disorder of skin and subcutaneous tissue 709.9 [facility] [id number] [place] [address] [id number] Mar, Dental examination V72.2 [facility] [id number] [place] [address] 81001- 4160 Mar, [facility] [id number] [place] [address] 89225- 1161 Feb, Amphetamine and other psychostimulant dependence, unspecified abuse 304.40 [facility] [id number] [place] [address] 52660- 7428 Feb, Chronic airway obstruction, not elsewhere classified 496 ; Back pain 724.5 and Hypertension 401.9 [facility] [id number] [place] [address] 35663- 8360 January, Chronic airway obstruction, not elsewhere classified 496 ; Unspecified disorder of skin and subcutaneous tissue 709.9 ; Lumbago 724.2 ; Essential hypertension, benign 401.1 ; Foot callus 700 and Allergic rhinitis 477.9 [facility] [id number] [place] [address] 46184- 7268 January, [facility] [id number] [place] [address] 30735- 6751 January, [facility] [id number] [place] [address] 19541- 0704 Dec, [facility] [address] [place] [address]- 1568 13 Dec, 2014 [facility] [place] [facility] [address] [id number] [place] [address]- 2603 Nov, [facility] [place] [facility] [address] [id number] [place] [address]- 1396 Nov, [facility] [place] [facility] [address] [id number] [place] [address]- 1791 Nov, [facility] [place] [facility] [address] [id number] [place] [address]- 7820 Nov, [facility] [place] [facility] [address] [id number] [place] [address]- 8784 Nov, [facility] [place] [facility] [address] [id number] [place] [address]- 2997 Nov, [facility] [place] [facility] [address] [id number] [place] [address]- 9079 16 Nov, 2014 [facility] [place] [facility] [address] [id number] [place] [address]- 3499 Nov, [facility] [place] [facility] [address] [id number] [place] [address]- 9091 Nov, [facility] [place] [facility] [address] [facility] [id number] [place] [address]- 5256 Oct, 2014 [facility] [place] [facility] [address] [id number] [place] [address]- 1570 Oct, 2014 [facility] [place] [facility] [address] [facility] [id number] [place] [address]- 7742 Oct, 2014 [facility] [place] [facility] [address] [id number] [place] [address]- 1971 Oct, 2014 [facility] [place] [facility] [address] [facility] [id number] [place] [address]- 7866 Oct, 2014 [facility] [place] [facility] [address] [facility] [id number] [place] [address]- 4746 Oct, [facility] [place] [facility] [address] [id number] [place] [address]- 2003 Oct, 2014 [facility] [place] [facility] [address] [id number] [place] [address]- 2021 Oct, 2014 [facility] [place] [facility] [address] [id number] [place] [address]- 6783 Oct, 2014 [facility] [place] [facility] [address] [id number] [place] [address]- 0377 Oct, 2014 [facility] [place] [facility] [address] [id number] [place] [address]- 4392 Oct, [facility] [place] [facility] [address] [id number] [place] [address]- 8782 Oct, [facility] [place] [facility] [address] [id number] [place] [address]- 4945 Oct, [facility] [place] [facility] [address] [id number] [place] [address]- 8087 Sep, [facility] [place] [facility] [address] [id number] [place] [address]- 2759 Sep, [facility] [place] [facility] [address] [id number] [place] [address]- 5445 Sep, [facility] [place] [facility] [address] [id number] [place] [address]- 3550 Sep, [facility] [place] [facility] [address] [id number], [place] [address]- 3464 Sep, [facility] [place] [facility] [address] [id number] [place] [address]- 2790 Sep, [facility] [place] [facility] [address] [id number] [place] [address]- 1332 Sep, [facility] [place] [facility] [address] [id number] [place] [address]- 9895 Sep, [facility] [place] [facility] [address] [id number] [place] 4891 31 Aug, 2014 [facility] [address] [id number] [place] 4666 Aug, [facility] [place] [facility] [address] [id number] [place] [address]- 3556 Aug, [facility] [place] [facility] [address] [id number] [place] 0296 Aug, [facility] [place] [facility] [address] [id number] [place] [address]- 1842 Aug, [facility] [place] [facility] [address] [id number] [place] [address]- 1722 Aug, [facility] [address] [id number] [place] [address]- 8198 Aug, [facility] [place] [facility] [address] [id number] [place] [address]- 3110 Aug, [facility] [address] [id number] [place] [address]- 1927 Aug, [facility] [place] [facility] [address] [id number] [place] [address]- 6755 Aug, [facility] [address] [id number] [place] [address]- 9401 Aug, [facility] [place] [facility] [address] [id number] [place] [address]- 5568 Aug, [facility] [place] [facility] [address] [id number] [place] [address]- 6051 Aug, [facility] [place] [facility] [address] [id number] [place] 8439 Aug, [facility] [place] [facility] [address] [id number] [place] [id number] Aug, [facility] [place] [facility] [address] [id number] [place] [address]- 0868 Aug, [facility] [place] [facility] [address] [id number] [place] [address]- 8049 Jul, [facility] [place] [facility] [address] [id number] [place] [address]- 4855 Jul, [facility] [place] [facility] [address] [id number] [place] [address]- 1888 Jul, [facility] [place] [facility] [address] [id number] [place] [address]- 4418 Jul, [facility] [place] [facility] [address] [id number] [place] [address]- 1877 Jul, [facility] [place] [facility] [address] [id number] [place] [address]- 3395 Jul, [facility] [place] [facility] [address] [id number] [place] [address]- 0090 Jun, [facility] [place] [facility] [address] [id number] [place] [address]- 7841 Jun, [facility] [place] [facility] [address] [id number] [place] [address]- 1988 Jun, [facility] [place] [facility] [address] [id number] [place] [address]- 3070 Jun, [facility] [place] [facility] [address] [id number] [place] [address]- 2853 Jun, [facility] [place] [facility] [address] [id number], [place] [address]- 3416 Jun, [facility] [place] [facility] [address] [id number] [place] [address]- 6113 Jun, [facility] [place] [facility] [address] [id number] [place] [address]- 2771 Jun, [facility] [place] [facility] [address] [id number], [place] [address]- 2476 Jun, [facility] [place] [facility] [address] [id number], [place] [address]- 3060 Jun, 2013 [facility] [place] [facility] [address] [id number] [place] [address]- 0290 Jun, 2013 [facility] [place] [facility] [address] [id number] [place] 2040 Jun, 2013 [facility] [place] [facility] [address] [id number] [place] [address]- 2675 Jun, 2013 [facility] [place] [facility] [address] [id number] [place] [address]- 8661 Jun, 2013 [facility] [place] [facility] [address] [id number] [place] [address]- 2961 Jun, 2013 [facility] [place] [facility] [address] [id number] [place] [address]- 1264 Jun, 2013 [facility] [place] [facility] [address] [facility] [id number] [place] [address]- 4848 Jun, 2013 [facility] [place] [facility] [address] [id number] [place] [address]- 0930 Jun, 2013 [facility] [place] [facility] [address] [facility] [id number] [place] [address]- 4621 Jun, 2013 [facility] [place] [facility] [address] [facility] [id number] [place] [address]- 4537 Jun, 2013 [facility] [place] [facility] [address] [id number], [place] [address]- 9060 Jun, 2013 [facility] [place] [facility] [address] [id number], [place] [address]- 6886 Jun, [facility] [place] [facility] [address] [id number] [place] 1965 Jun, [facility] [place] [facility] [address] [facility] [id number] [place] [address]- 8358 May, 2013 [facility] [place] [facility] [address] [facility] [id number] [place] [address]- 2224 29 May, 2013 [facility] [place] [facility] [address] [id number] [place] [address]- 5069 May, 2013 [facility] [place] [facility] [address] [id number] [place] [address]- 5990 May, [facility] [place] [facility] [address] [id number] [place] [address]- 0776 May, [facility] [place] [facility] [address] [id number] [place] [address]- 7855 May, [facility] [place] [facility] [address] [id number] [place] [address]- 5366 May, [facility] [place] [facility] [address] [id number] [place] [address]- 9498 May, [facility] [place] [facility] [address] [id number] [place] [address]- 7167 Apr, [facility] [place] [facility] [address] [id number] [place] [address]- 3200 Apr, [facility] [place] [facility] [address] [id number] [place] [address]- 0648 Apr, [facility] [place] [facility] [address] [id number] [place] [address]- 8210 Apr, [facility] [place] [facility] [address] [id number] [place] [address]- 9384 Apr, [facility] [place] [facility] [address] [id number] [place] [address]- 3163 Apr, [facility] [place] [facility] [address] [id number] [place] [address]- 3560 Apr, [facility] [place] [facility] [address] [id number] [place] [address]- 0381 Apr, [facility] [place] [facility] [address] [id number] [place] [address]- 7622 Apr, [facility] [place] [facility] [address] [id number] [place] [address]- 4937 Apr, [facility] [place] [facility] [address] [id number] [place] [address]- 0510 Apr, [facility] [place] [facility] [address] [id number] [place] [address]- 8063 Apr, [facility] [place] [facility] [address] [id number] [place] [address]- 5042 Apr, [facility] [place] [facility] [address] [id number] [place] [address]- 1680 Apr, [facility] [place] [facility] [address] [id number] [place] [address]- 2481 Apr, [facility] [place] [facility] [address] [id number] [place] [address]- 2966 Apr, [facility] [place] [facility] [address] [id number] [place] [address]- 5532 Apr, [facility] [place] [facility] [address] [id number] [place] [address]- 1346 Apr, [facility] [place] [facility] [address] [id number] [place] [address]- 1515 Apr, [facility] [place] [facility] [address] [id number] [place] [address] Apr, [facility] [place] [facility] [address] [id number] [place] [address] Apr, [facility] [place] [facility] [address] [id number] [place] [address] Apr, [facility] [place] [facility] [address] [id number] [place] [address] Mar, [facility] [place] [facility] [address] [id number] [place] [address] Mar, [facility] [place] [facility] [address] [id number] [place] [address] Mar, [facility] [place] [facility] [address] [id number] [place] [address] Mar, [facility] [place] [facility] [address] [id number] [place] [address] Mar, [facility] [place] [facility] [address] [id number] [place] [address] Mar, [facility] [place] [facility] [address] [id number] [place] [address] Mar, [facility] [place] [facility] [address] [id number] [place] [address] Mar, [facility] [place] [facility] [address] [id number] [place] [address] 2009 Feb, [facility] [place] [facility] [address] [id number] [place] [address] Feb, [facility] [place] [facility] [address] [id number] [place] [address] Feb, [facility] [place] [facility] [address] [id number] [place] [address]- [address] Feb, [facility] [place] [facility] [address] [id number] [place] [address] 1900 Feb, [facility] [place] [facility] [address] [id number] [place] [address] Feb, [facility] [place] [facility] [address] [id number] [place] [address]- [address] Feb, [facility] [place] [facility] [address] [id number] [place] [address] January, [facility] [place] [facility] [address] [id number] [place] [address]- 67[address] January, [facility] [place] [facility] [address] [id number] [place] [address] January, [facility] [place] [facility] [address] [id number] [place] [address] January, [facility] [place] [facility] [address] [id number] [place] [address]- [address] Dec, [facility] [place] [facility] [address] [id number] [place] [address] Dec, [facility] [place] [facility] [address] [id number] [place] [address]- [address] Dec, [facility] [place] [facility] [address] [id number] [place] [address]- [address] Dec, [facility] [place] [facility] [address] [id number] [place] [address] Dec, [facility] [place] [facility] [address] [id number] [place] [address]- [address] Dec, [facility] [place] [facility] [address] [id number] [place] [address] Dec, [facility] [place] [facility] [address] [id number] [place] [address]- [address] Dec, [facility] [place] [facility] [address] [id number] [place] [address] Dec, [facility] [place] [facility] [address] [id number] [place] [address] Dec, [facility] [place] [facility] [address] [id number] [place] [address]- [address] Nov, [facility] [place] [facility] [address] [id number] [place] [address] Nov, [facility] [place] [facility] [address] [id number] [place] [address]- [address] Nov, [facility] [place] [facility] [address] [id number] [place] [address]67 Nov, [facility] [place] [facility] [address] [id number] [place] [address]- [address] Oct, [facility] [place] [facility] [address] [id number] [place] [address] Oct, [facility] [place] [facility] [address] [id number] [place] [address]- [address] Oct, [facility] [place] [facility] [address] [id number] [place] [address] Oct, [facility] [place] [facility] [address] [id number] [place] [address] Oct, [facility] [place] [facility] [address] [id number] [place] [address] Oct, [facility] [place] [facility] [address] [id number] [place] [address]- 8025 Oct, [facility] [place] [facility] [address] [id number] [place] [address]- [address]24 Oct, [facility] [place] [facility] [address] [id number] [place] [address] Sep, [facility] [place] [facility] [address] [id number] [place] [address]- [address] Sep, [facility] [place] [facility] [address] [id number] [place] [address] Sep, [facility] [place] [facility] [address] [facility] [id number] [place] [address]- [address] Sep, [facility] [place] [facility] [address] [id number] [place] [address] Aug, [facility] [place] [facility] [address] [id number], [place] [address] Aug, [facility] [place] [facility] [address] [id number] [place] [address] Aug, [facility] [place] [facility] [address] [id number] [place] [address] Aug, [facility] [place] [facility] [address] [id number], [place] [address] Jul, [facility] [place] [facility] [address] [id number] [place] [address] Jul, [facility] [place] [facility] [address] [id number] [place] [address] Jul, [facility] [place] [facility] [address] [id number] [place] [address] Jul, [facility] [place] [facility] [address] [id number] [place] [address] Jun, [facility] [place] [facility] [address] [id number] [place] [address] Jun, [facility] [place] [facility] [address] [id number] [place] [address] Jun, [facility] [place] [facility] [address] [id number] [place] [address] Jun, [facility] [place] [facility] [address] [id number] [place] [address] Jun, [facility] [place] [facility] [address] [id number] [place] [address] Jun, [facility] [place] [facility] [address] [id number] [place] [address] 08 Jun, 2013 [facility] [place] [facility] [address] [id number] [place] [address] 17 May, 2013 [facility] [place] [facility] [address] [id number] [place] [address] May, [facility] [place] [facility] [address] [id number] [place] [address] May, [facility] [place] [facility] [address] [id number] [place] [address] 4465 Apr, [facility] [place] [facility] [address] [id number] [place] [address] Apr, [facility] [place] [facility] [address] [id number] [place] [address]116 Apr, [facility] [place] [facility] [address] [id number] [place] [address] 4638 Apr, [facility] [place] [facility] [address] [id number] [place] [address]- [address] Apr, [facility] [place] [facility] [address] [id number] [place] [address] Mar, [facility] [place] [facility] [address] [id number] [place] [address]34 Mar, [facility] [place] [facility] [address] [id number] [place] [address] Mar, [facility] [place] [facility] [address] [id number] [place] [address] 4[address] Mar, [facility] [place] [facility] [address] [id number] [place] [address]237 Mar, [facility] [place] [facility] [address] [id number] [place] [address] Mar, [facility] [place] [facility] [address] [id number] [place] [address]205 Feb, [facility] [place] [facility] [address] [id number] [place] [address] Feb, [facility] [place] [facility] [address] [id number] [place] [address] 160[address] Feb, [facility] [place] [facility] [address] [id number] [place] [address] 2924 Feb, [facility] [place] [facility] [address] [id number] [place] [address] Feb, [facility] [place] [facility] [address] [id number] [place] [address] 8964 Feb, [facility] [place] [facility] [address] [id number] [place] [address] 1828 Feb, [facility] [place] [facility] [address] [id number] [place] [address] 2546 Feb, [facility] [address] [id number] [place] [address] 7933 Feb, [facility] [address] [id number] [place] [address] 6946 January, [facility] [address] [id number] [place] [address] January, [facility] [address] [id number] [place] [address] 6[address] January, [facility] [address] [id number] [place] [address] January, [facility] [address] [id number] [place] [address] 136[address] January, [facility] [address] [id number] [place] [address] 1376 January, [facility] [address] [id number] [place] [address] January, [facility] [address] [id number] [place] [address]- [address]27 January, [facility] [address] [id number] [place] [address]60 January, [facility] [address] [id number] [place] [address] 8156 January, [facility] [address] [id number] [place] [address] 0278 Dec, [facility] [address] [id number] [place] [address]397 Dec, [facility] [address] [id number] [place] [address] 6276 Dec, [facility] [address] [id number] [place] [address]- 1814 Dec, [facility] [id number] [address] Dec, [facility] [id number] [address] [address] Dec, [facility] [id number] [address] Nov, [facility] [id number] [place] [address] Nov, [facility] [id number], [place] [address] Nov, [facility] [id number] [place] [address] Oct, [facility] [id number] [place] [address]- 9715 Oct, [facility] [id number] [place] [address]774- 1656 Oct, [facility] [id number], [place] [address] Oct, [facility] [id number], [place] [address] Oct, [facility] [id number] [address] Jun, IMMUNIZATIONS No Known Immunizations SOCIAL HISTORY Never Assessed REASON FOR VISIT [employer] progress PLAN OF CARE VITAL SIGNS MEDICATIONS Unknown [...]
--- OUTSIDE RECORDS SUMMARY | 2018-11-29 19:34 | XMS REPORT | Continuity of Care Document ---
Author Author [facility] Ctr of [facility] Address Unknown Phone Unavailable Allergies Active Description Code Type Severity Reaction Onset Reported/Identified Relationship to Patient Clinical Status Yes NO KNOWN DRUG ALLERGIES UNKNOWN NO KNOWN DRUG ALLERG Yes No Known Drug Allergies [id number] Drug Allergy Unknown N/A 01/07/2013 Yes Sulfa (Sulfonamide Antibiotics) [id number] Drug Allergy Unknown N/A 2015 Medications Medication [...] K V03.82 PPV23 (PNEUMOVAX) DX 11/07/2012 MADL AGENCY RECRUITER, KARIE L 070.70 HEPATITIS, C VIRUS 11/07/2012 MADL AGENCY RECRUITER, KARIE L 295.70 SCHIZOAFFECTIVE DISORDER 11/07/2012 MADL AGENCY RECRUITER, KARIE L 496 CHRONIC OBSTRUCTIVE PULMONARY DISEASE 11/07/2012 MADL AGENCY RECRUITER, KARIE L V03.82 PPV23 (PNEUMOVAX) DX 11/07/2012 PETERSON DO, LINN K 070.70 HEPATITIS, C VIRUS 11/07/2012 PETERSON DO, LINN K 295.70 SCHIZOAFFECTIVE DISORDER 11/07/2012 PETERSON DO, LINN K 496 CHRONIC OBSTRUCTIVE PULMONARY DISEASE 11/07/2012 PETERSON DO, LINN K V03.82 PPV23 (PNEUMOVAX) DX 11/07/2012 MADL AGENCY RECRUITER, KARIE L 070.70 HEPATITIS, C VIRUS 11/07/2012 MADL AGENCY RECRUITER, KARIE L 295.70 SCHIZOAFFECTIVE DISORDER 11/07/2012 MADL AGENCY RECRUITER, KARIE L 496 CHRONIC OBSTRUCTIVE PULMONARY DISEASE 11/07/2012 MADL AGENCY RECRUITER, KARIE L V03.82 PPV23 (PNEUMOVAX) DX 11/07/2012 PETERSON DO, LINN K 070.70 HEPATITIS, C VIRUS 11/07/2012 PETERSON DO, LINN K 295.70 SCHIZOAFFECTIVE DISORDER 11/07/2012 KRISTEN DUNN, LINN K 496 CHRONIC OBSTRUCTIVE PULMONARY DISEASE 11/07/2012 PETERSON , LINN K V03.82 PPV23 (PNEUMOVAX) DX 11/07/2012 SUSANNA AGENCY RECRUITER, FRANK T 070.70 HEPATITIS, C VIRUS 11/07/2012 SUSANNA AGENCY RECRUITER, FRANK T 295.70 SCHIZOAFFECTIVE DISORDER 11/07/2012 SUSANNA AGENCY RECRUITER, FRANK T 496 CHRONIC OBSTRUCTIVE PULMONARY DISEASE 11/07/2012 SUSANNA AGENCY RECRUITER FRANK T V03.82 PPV23 (PNEUMOVAX) DX 11/07/2012 MADL AGENCY RECRUITER, KARIE L 070.70 HEPATITIS, C VIRUS 11/07/2012 MADL AGENCY RECRUITER, KARIE L 295.70 SCHIZOAFFECTIVE DISORDER 11/07/2012 MADL AGENCY RECRUITER, KARIE L 496 CHRONIC OBSTRUCTIVE PULMONARY DISEASE 11/07/2012 MADL AGENCY RECRUITER, KARIE L V03.82 PPV23 (PNEUMOVAX) DX 11/07/2012 MADL AGENCY RECRUITER, KARIE L 070.70 HEPATITIS, C VIRUS 11/07/2012 MADL AGENCY RECRUITER, KARIE L 295.70 SCHIZOAFFECTIVE DISORDER 11/07/2012 MADL AGENCY RECRUITER, KARIE L 496 CHRONIC OBSTRUCTIVE PULMONARY DISEASE 11/07/2012 MADL AGENCY RECRUITER, KARIE L V03.82 PPV23 (PNEUMOVAX) DX 11/07/2012 MADL AGENCY RECRUITER, KARIE L 070.70 HEPATITIS, C VIRUS 11/07/2012 MADL AGENCY RECRUITER, KARIE L 295.70 SCHIZOAFFECTIVE DISORDER 11/07/2012 MADL AGENCY RECRUITER, KARIE L 496 CHRONIC OBSTRUCTIVE PULMONARY DISEASE 11/07/2012 MADL AGENCY RECRUITER, KARIE L V03.82 PPV23 (PNEUMOVAX) DX 11/07/2012 MADL AGENCY RECRUITER, KARIE L 070.70 HEPATITIS, C VIRUS 11/07/2012 TANNER AGENCY RECRUITER, KARIE L 295.70 SCHIZOAFFECTIVE DISORDER 11/07/2012 TANNER AGENCY RECRUITER, KARIE L 496 CHRONIC OBSTRUCTIVE PULMONARY DISEASE 11/07/2012 TANNER VILLALOBOSN, KARIE L V03.82 PPV23 (PNEUMOVAX) DX 11/07/2012 LEANNA AGENCY RECRUITER, REBEKA R 070.70 HEPATITIS, C VIRUS 11/07/2012 LEANNA AGENCY RECRUITER, REBEKA R 295.70 SCHIZOAFFECTIVE DISORDER 11/07/2012 LEANNA AGENCY RECRUITER, REBEKA R 496 CHRONIC OBSTRUCTIVE PULMONARY DISEASE [...] delays in starting urination (hesitancy) 12/05/2012 LINN PEETRSON DO V76.51 visit for: screening malignant neoplasm colon 12/05/2012 LINN PETERSON DO 788.64 delays in starting urination (hesitancy) 12/05/2012 PETERSON DO, LINN K V76.51 visit for: screening malignant neoplasm colon 12/05/2012 PETERSON DO LINN K 788.64 delays in starting urination (hesitancy) 12/05/2012 PETERSON DO LINN K V76.51 VISIT FOR: SCREENING MALIGNANT NEOPLASM COLON 12/05/2012 MADL AGENCY RECRUITER, KARIE L 788.64 delays in starting urination (hesitancy) 12/05/2012 MADL AGENCY RECRUITER, KARIE L V76.51 VISIT FOR: SCREENING MALIGNANT NEOPLASM COLON 12/05/2012 PETERSON DO LINN K 788.64 delays in starting urination (hesitancy) 12/05/2012 PETERSON DO LINN K V76.51 VISIT FOR: SCREENING MALIGNANT NEOPLASM COLON 12/05/2012 MADL AGENCY RECRUITER, KARIE L 788.64 delays in starting urination (hesitancy) 12/05/2012 MADL AGENCY RECRUITER, KARIE L V76.51 VISIT FOR: SCREENING MALIGNANT NEOPLASM COLON 12/05/2012 KRISTEN DUNN LINN K 788.64 delays in starting urination (hesitancy) 12/05/2012 ALFREDO PETERSON DOA K V76.51 VISIT FOR: SCREENING MALIGNANT NEOPLASM COLON 12/05/2012 FRANK MULLINS APRN 788.64 delays in starting urination (hesitancy) 12/05/2012 FRANK MULLINS APRN V76.51 VISIT FOR: SCREENING MALIGNANT NEOPLASM COLON 12/05/2012 MADL AGENCY RECRUITER, KARIE L 788.64 delays in starting urination (hesitancy) 12/05/2012 CRISTOBALL AGENCY RECRUITER, KARIE L V76.51 VISIT FOR: SCREENING MALIGNANT NEOPLASM COLON 12/05/2012 MADL AGENCY RECRUITER, KARIE L 788.64 delays in starting urination (hesitancy) 12/05/2012 MADL AGENCY RECRUITER, KARIE L V76.51 VISIT FOR: SCREENING MALIGNANT NEOPLASM COLON 12/05/2012 MADL AGENCY RECRUITER, KARIE L 788.64 delays in starting urination (hesitancy) 12/05/2012 MADL AGENCY RECRUITER, KARIE L V76.51 VISIT FOR: SCREENING MALIGNANT NEOPLASM COLON 12/05/2012 MADL AGENCY RECRUITER, KARIE L 788.64 delays in starting urination [...] DO, LINN K 780.52 insomnia 01/08/2013 MADL AGENCY RECRUITER, KARIE L 401.1 ESSENTIAL HYPERTENSION BENIGN 01/08/2013 MADL AGENCY RECRUITER, KARIE L 780.52 insomnia 01/08/2013 PETERSON DO, LINN K 401.1 ESSENTIAL HYPERTENSION BENIGN 01/08/2013 PETERSON DO, LINN K 780.52 insomnia 01/08/2013 MADL AGENCY RECRUITER, KARIE L 401.1 ESSENTIAL HYPERTENSION BENIGN 01/08/2013 MADL AGENCY RECRUITER, KARIE L 780.52 insomnia 01/08/2013 PETERSON DO, LINN K 401.1 ESSENTIAL HYPERTENSION BENIGN 01/08/2013 PETERSON DO, LINN K 780.52 insomnia 01/08/2013 FRANK MULLINS APRN T 401.1 ESSENTIAL HYPERTENSION BENIGN 01/08/2013 FRANK MULLINS APRN T 780.52 insomnia 01/08/2013 MADL AGENCY RECRUITER, KARIE L 401.1 ESSENTIAL HYPERTENSION BENIGN 01/08/2013 MADL AGENCY RECRUITER, KARIE L 780.52 insomnia 01/08/2013 MADL AGENCY RECRUITER, KARIE L 401.1 ESSENTIAL HYPERTENSION BENIGN 01/08/2013 MADL AGENCY RECRUITER, KARIE L 780.52 insomnia 01/08/2013 MADL AGENCY RECRUITER, KARIE L 401.1 ESSENTIAL HYPERTENSION BENIGN 01/08/2013 MADL AGENCY RECRUITER, KARIE L 780.52 insomnia 01/08/2013 MADL AGENCY RECRUITER, KARIE L 401.1 ESSENTIAL HYPERTENSION BENIGN 01/08/2013 MADL AGENCY RECRUITER, KARIE L 780.52 insomnia 01/08/2013 LEANNA VILLALOBOSN, REBEKA R 401.1 ESSENTIAL HYPERTENSION BENIGN 01/08/2013 LEANNA AGENCY RECRUITER, REBEKA R 780.52 insomnia 01/31/2013 780.4 dizziness [...] PETERSON DO, LINN K 780.4 dizziness 01/31/2013 PETESRON DO, LINN K 786.50 chest pain or discomfort 01/31/2013 PETERSON DO, LINN K 593.9 RENAL INSUFFICIENCY 01/31/2013 PETERSON DO, LINN K 780.4 dizziness 01/31/2013 PETERSON DO, LINN K 786.50 chest pain or discomfort 01/31/2013 PETERSON DO, LINN K 593.9 RENAL INSUFFICIENCY 01/31/2013 PETERSON DO, LINN K 780.4 dizziness 01/31/2013 PETERSON DO, LINN K 786.50 chest pain or discomfort 01/31/2013 MADMiya AGENCY RECRUITER, KARIE L 593.9 RENAL INSUFFICIENCY 01/31/2013 MADMiya AGENCY RECRUITER, KARIE L 780.4 dizziness 01/31/2013 MADL AGENCY RECRUITER, KARIE L 786.50 chest pain or discomfort 01/31/2013 PETERSON DO, LINN K 593.9 RENAL INSUFFICIENCY 01/31/2013 PETERSON DO, LINN K 780.4 dizziness 01/31/2013 PETERSON DO, LINN K 786.50 chest pain or discomfort 01/31/2013 MADL AGENCY RECRUITER, KARIE L 593.9 RENAL INSUFFICIENCY 01/31/2013 MADL AGENCY RECRUITER, KARIE L 780.4 dizziness 01/31/2013 MADL AGENCY RECRUITER, KARIE L 786.50 chest pain or discomfort 01/31/2013 PETERSON DO, LINN K 593.9 RENAL INSUFFICIENCY 01/31/2013 PETERSON DO, LINN K 780.4 dizziness 01/31/2013 PETERSON DO, LINN K 786.50 chest pain or discomfort 01/31/2013 FRANK MULLINS APRN T 593.9 RENAL INSUFFICIENCY 01/31/2013 SUSANNA SOW FRANK T 780.4 dizziness 01/31/2013 SUSANNA SOW FRANK T 786.50 chest pain or discomfort 01/31/2013 MADL AGENCY RECRUITER, KARIE L 593.9 RENAL INSUFFICIENCY 01/31/2013 MADL AGENCY RECRUITER, KARIE L 780.4 dizziness 01/31/2013 MADL AGENCY RECRUITER, KARIE L 786.50 chest pain or discomfort 01/31/2013 MADL AGENCY RECRUITER, KARIE L 593.9 RENAL INSUFFICIENCY 01/31/2013 MADL AGENCY RECRUITER, KARIE L 780.4 dizziness 01/31/2013 MADL AGENCY RECRUITER, KARIE L 786.50 chest pain or discomfort 01/31/2013 MADL AGENCY RECRUITER, KARIE L 593.9 RENAL INSUFFICIENCY 01/31/2013 MADL AGENCY RECRUITER, KARIE L 780.4 dizziness 01/31/2013 MADL AGENCY RECRUITER, KARIE L 786.50 chest pain or discomfort 01/31/2013 MADL AGENCY RECRUITER, KARIE L 593.9 RENAL INSUFFICIENCY 01/31/2013 MADL AGENCY RECRUITER, KARIE L 780.4 dizziness 01/31/2013 MADL AGENCY RECRUITER, KARIE L 786.50 chest pain or discomfort [...] K V81.1 HYPERTENSION SCREENING 02/04/2013 PETERSON DO, LNIN K V81.1 HYPERTENSION SCREENING 02/04/2013 PETERSON DO, LINN K V81.1 HYPERTENSION SCREENING 02/04/2013 [facility] AGENCY RECRUITER, KARIE L V81.1 HYPERTENSION SCREENING 02/04/2013 PETERSON DO, LINN K V81.1 HYPERTENSION SCREENING 02/04/2013 MAD AGENCY RECRUITER, KARIE L V81.1 HYPERTENSION SCREENING 02/04/2013 PETERSON DO, LINN K V81.1 HYPERTENSION SCREENING 02/04/2013 FRANK MULLINS APRN V81.1 HYPERTENSION SCREENING 02/04/2013 MADL AGENCY RECRUITER, KARIE L V81.1 HYPERTENSION SCREENING 02/04/2013 MADL AGENCY RECRUITER, KARIE L V81.1 HYPERTENSION SCREENING 02/04/2013 MADL AGENCY RECRUITER, KARIE L V81.1 HYPERTENSION SCREENING 02/04/2013 MADL AGENCY RECRUITER, KARIE L V81.1 HYPERTENSION SCREENING 02/04/2013 REBEKA [...] 788.1 PAIN DURING URINATION (DYSURIA) 02/19/2013 MADMiya AGENCY RECRUITER, KARIE L 788.1 PAIN DURING URINATION (DYSURIA) 02/19/2013 SWATHI HART APRNA L 788.1 PAIN DURING URINATION (DYSURIA) 02/19/2013 LEANNA AGENCY RECRUITER, REBEKA R 788.1 PAIN DURING URINATION (DYSURIA) [...] Ot 599.0 URIN TRACT INFECTION NOS 08/03/2013 RONDA BELLO, REJI Moffett Ot 780.2 SYNCOPE AND COLLAPSE 08/03/2013 RJEI BOND MD Ot 824.8 FX ANKLE NOS-CLOSED [...] K 311 DEPRESSIVE DISORDER NOS 08/13/2013 MADL AGENCY RECRUITER, KARIE L 300.00 AN ANXIETY UNSPEC 08/13/2013 MADL AGENCY RECRUITER, KARIE L 304.40 AMPHETAMINE DEPENDENCE 08/13/2013 MADL AGENCY RECRUITER, KARIE L 311 DEPRESSIVE DISORDER NOS 08/13/2013 PETERSON DO, LINN K 300.00 AN ANXIETY UNSPEC 08/13/2013 PETERSON DO, LINN K 304.40 AMPHETAMINE DEPENDENCE 08/13/2013 PETERSON DO, LINN K 311 DEPRESSIVE DISORDER NOS 08/13/2013 MADL AGENCY RECRUITER, KARIE L 300.00 AN ANXIETY UNSPEC 08/13/2013 MADL AGENCY RECRUITER, KARIE L 304.40 AMPHETAMINE DEPENDENCE 08/13/2013 MADL AGENCY RECRUITER, KARIE L 311 DEPRESSIVE DISORDER NOS 08/13/2013 PETERSON DO, LINN K 300.00 AN ANXIETY UNSPEC 08/13/2013 PETERSON DO, LINN K 304.40 AMPHETAMINE DEPENDENCE 08/13/2013 PETERSON DO, LINN K 311 DEPRESSIVE DISORDER NOS 08/13/2013 FRANK MULLINS APRN T 300.00 AN ANXIETY UNSPEC 08/13/2013 SUSANNA SOW FRANK T 304.40 AMPHETAMINE DEPENDENCE 08/13/2013 SUSANNA SOW FRANK T 311 DEPRESSIVE DISORDER NOS 08/13/2013 MADL AGENCY RECRUITER, KARIE L 300.00 AN ANXIETY UNSPEC 08/13/2013 MADL AGENCY RECRUITER, KARIE L 304.40 AMPHETAMINE DEPENDENCE 08/13/2013 MADL AGENCY RECRUITER, KARIE L 311 DEPRESSIVE DISORDER NOS 08/13/2013 MADL AGENCY RECRUITER, KARIE L 300.00 AN ANXIETY UNSPEC 08/13/2013 MADL AGENCY RECRUITER, KARIE L 304.40 AMPHETAMINE DEPENDENCE 08/13/2013 MADL AGENCY RECRUITER, KARIE L 311 DEPRESSIVE DISORDER NOS 08/13/2013 MADL AGENCY RECRUITER, KARIE L 300.00 AN ANXIETY UNSPEC 08/13/2013 MADL AGENCY RECRUITER, KARIE L 304.40 AMPHETAMINE DEPENDENCE 08/13/2013 MADL AGENCY RECRUITER, KARIE L 311 DEPRESSIVE DISORDER NOS 08/13/2013 MADL AGENCY RECRUITER, KARIE L 300.00 AN ANXIETY UNSPEC 08/13/2013 MADL AGENCY RECRUITER, KARIE L 304.40 AMPHETAMINE DEPENDENCE 08/13/2013 MADL AGENCY RECRUITER, KARIE L 311 DEPRESSIVE DISORDER NOS 08/13/2013 LEANNA SOW REBEKA R 300.00 AN ANXIETY UNSPEC 08/13/2013 LEANNA VILLALOBOSN, REBEKA R 304.40 AMPHETAMINE DEPENDENCE 08/13/2013 LEANNA SWO REBEKA R 311 DEPRESSIVE DISORDER NOS 05/09/2014 PETERSON DO, LINN K 724.2 BACK PAIN, LOWER 05/09/2014 MADL AGENCY RECRUITER, KARIE L 724.2 BACK PAIN, LOWER 05/09/2014 PETERSON DO, LINN K 724.2 BACK PAIN, LOWER 05/09/2014 MADL AGENCY RECRUITER, KARIE L 724.2 BACK PAIN, LOWER 05/09/2014 PETERSON DO, LINN K 724.2 BACK PAIN, LOWER 05/09/2014 FRANK MULLINS APRN 724.2 BACK PAIN, LOWER 05/09/2014 MADL AGENCY RECRUITER, KARIE L 724.2 BACK PAIN, LOWER 05/09/2014 MADL AGENCY RECRUITER, KARIE L 724.2 BACK PAIN, LOWER 05/09/2014 MADL AGENCY RECRUITER, KARIE L 724.2 BACK PAIN, LOWER 05/09/2014 MADL AGENCY RECRUITER, KARIE L 724.2 BACK PAIN, LOWER 05/09/2014 LEANNA AGENCY RECRUITER, REBEKA R 724.2 BACK PAIN, LOWER 07/15/2014 PETERSON DO, LINN K 599.0 URINARY TRACT INFECTION 07/15/2014 PETERSON DO, LINN K 782.1 RASH AND OTHER NONSPECIFIC SKIN ERUPTION 07/15/2014 MADL AGENCY RECRUITER, KARIE L 599.0 URINARY TRACT INFECTION 07/15/2014 MADL AGENCY RECRUITER, KARIE L 782.1 RASH AND OTHER NONSPECIFIC SKIN ERUPTION 07/15/2014 PETERSON DO, LINN K 599.0 URINARY TRACT INFECTION 07/15/2014 PETERSON DO, LINN K 782.1 RASH AND OTHER NONSPECIFIC SKIN ERUPTION 07/15/2014 FRANK MULLINS APRN 599.0 URINARY TRACT INFECTION 07/15/2014 FRANK MULLINS APRN 782.1 RASH AND OTHER NONSPECIFIC SKIN ERUPTION 07/15/2014 MADL AGENCY RECRUITER, KARIE L 599.0 URINARY TRACT INFECTION 07/15/2014 MADL AGENCY RECRUITER, KARIE L 782.1 RASH AND OTHER NONSPECIFIC SKIN ERUPTION 07/15/2014 MADL AGENCY RECRUITER, KARIE L 599.0 URINARY TRACT INFECTION 07/15/2014 MADL AGENCY RECRUITER, KARIE L 782.1 RASH AND OTHER NONSPECIFIC SKIN ERUPTION 07/15/2014 MADL AGENCY RECRUITER, KARIE L 599.0 URINARY TRACT INFECTION 07/15/2014 MADL AGENCY RECRUITER, KARIE L 782.1 RASH AND OTHER NONSPECIFIC SKIN ERUPTION 07/15/2014 MADL AGENCY RECRUITER, KARIE L 599.0 URINARY TRACT INFECTION 07/15/2014 MADL AGENCY RECRUITER, KARIE L 782.1 RASH AND OTHER NONSPECIFIC SKIN ERUPTION 07/15/2014 LEANNA AGENCY RECRUITER, REBEKA R 599.0 URINARY TRACT INFECTION 07/15/2014 LEANNA AGENCY RECRUITER, REBEKA R 782.1 RASH AND OTHER NONSPECIFIC SKIN ERUPTION 10/21/2014 MADL AGENCY RECRUITER, KARIE L 682.6 CELLULITIS AND ABSCESS OF LEG EXCEPT FOOT 10/21/2014 MADL AGENCY RECRUITER, KARIE L 682.6 CELLULITIS AND ABSCESS OF LEG EXCEPT FOOT 10/21/2014 MADL AGENCY RECRUITER, KARIE L 682.6 CELLULITIS AND ABSCESS OF LEG EXCEPT FOOT 10/21/2014 MADL AGENCY RECRUITER, KARIE L 682.6 CELLULITIS AND ABSCESS OF LEG EXCEPT FOOT 10/21/2014 LEANNA AGENCY RECRUITER, REBEKA R 682.6 CELLULITIS AND ABSCESS OF LEG EXCEPT FOOT 10/30/2014 MADL AGENCY RECRUITER, KARIE L 465.9 UPPER RESPIRATORY INFECTION 10/30/2014 MADL AGENCY RECRUITER, KARIE L 465.9 UPPER RESPIRATORY INFECTION 10/30/2014 MADL AGENCY RECRUITER, KARIE L 465.9 UPPER RESPIRATORY INFECTION 10/30/2014 LEANNA VILLALOBOSN, REBEKA R 465.9 UPPER RESPIRATORY INFECTION 12/05/2014 MADL AGENCY RECRUITER, KARIE L 709.9 UNSPECIFIED DISORDER OF SKIN AND SUBCUTANEOUS TISSUE 12/05/2014 CRISTOBALL AGENCY RECRUITER, KARIE L 709.9 UNSPECIFIED DISORDER OF SKIN [...] HARSHA Goddard Ot 070.70 12/12/2014 ILEANA OSBORNE AGENCY RECRUITER Ot 305.1 TOBACCO USE DISORDER 12/12/2014 ILEANA OSBORNE AGENCY RECRUITER Ot 496 CHR AIRWAY OBSTRUCT NEC 12/12/2014 ILEANA OSBORNE AGENCY RECRUITER Ot 709.8 SKIN DISORDERS NEC 12/12/2014 ILEANA OSBORNE AGENCY RECRUITER Ot 729.5 PAIN IN LIMB 12/13/2014 ANDREA BELLO, BARBARA Rodrigues Ot 700 CORNS AND CALLOSITIES 12/16/2014 JUAN C PETERSON MD Ot 305.1 TOBACCO USE DISORDER 12/16/2014 [...] INFECTION, SITE NOT SPECIF 11/25/2015 ILEANA OSBORNE AGENCY RECRUITER Ot F12.10 CANNABIS ABUSE, UNCOMPLICATED 11/25/2015 ILEANA OSBORNE AGENCY RECRUITER Ot S93.402A SPRAIN OF UNSPECIFIED LIGAMENT OF LEFT A 11/25/2015 ILEANA OSBORNE AGENCY RECRUITER Ot X58.XXXA EXPOSURE TO OTHER SPECIFIED FACTORS, INI 11/25/2015 ILEANA OSBORNE AGENCY RECRUITER Ot Y99.8 OTHER EXTERNAL CAUSE STATUS 11/26/2015 ILEANA OSBORNE AGENCY RECRUITER Ot F12.10 11/26/2015 ILEANA OSBORNE AGENCY RECRUITER Ot S93.402A 11/26/2015 ILEANA OSBORNE AGENCY RECRUITER Ot X58.XXXA 11/26/2015 ILEANA OSBORNE AGENCY RECRUITER Ot Y99.8 11/30/2015 ILEANA OSBORNE AGENCY RECRUITER Ot F12.10 11/30/2015 ILEANA OSBORNE AGENCY RECRUITER Ot S93.402A 11/30/2015 ILEANA OSBORNE AGENCY RECRUITER Ot X58.XXXA 11/30/2015 ILEANA OSBORNE AGENCY RECRUITER Ot Y99.8 12/02/2015 ILEANA OSBORNE AGENCY RECRUITER Ot F12.10 12/02/2015 ILEANA OSBORNE AGENCY RECRUITER Ot S93.402A 12/02/2015 ILEANA OSBORNE AGENCY RECRUITER Ot X58.XXXA 12/02/2015 ILEANA OSBORNE AGENCY RECRUITER Ot Y99.8 12/15/2015 ILEANA OSBORNE AGENCY RECRUITER Ot F12.10 12/15/2015 ILEANA OSBORNE AGENCY RECRUITER Ot S93.402A 12/15/2015 ILEANA OSBORNE AGENCY RECRUITER Ot X58.XXXA 12/15/2015 ILEANA OSBORNE AGENCY RECRUITER Ot Y99.8 12/24/2015 ILEANA OSBORNE AGENCY RECRUITER Ot F12.10 12/24/2015 ILEANA OSBORNE AGENCY RECRUITER Ot S93.402A 12/24/2015 ILEANA OSBORNE AGENCY RECRUITER Ot X58.XXXA 12/24/2015 ILEANA OSBORNE AGENCY RECRUITER Ot Y99.8 04/08/2016 Ot V72.84 EXAM PRE- [...] M54.5 LOW BACK PAIN 04/11/2016 AC DO, EDITA K Ot F17.210 NICOTINE [...] 06/26/2016 REJI BOND MD Ot Z79.899 OTHER HALF-WAY (CURRENT) DRUG THERAPY 07/01/2016 REJI BOND MD Ot F17.210 NICOTINE DEPENDENCE, CIGARETTES, UNCOMPL 07/01/2016 REJI BOND MD Ot I10 ESSENTIAL (PRIMARY) HYPERTENSION 07/01/2016 REJI BOND MD Ot J44.9 CHRONIC OBSTRUCTIVE PULMONARY DISEASE, U 07/01/2016 REJI BOND MD Ot M54.6 PAIN IN THORACIC SPINE 07/01/2016 REJI BOND MD Ot R23.4 CHANGES IN SKIN TEXTURE 07/01/2016 REJI BOND MD Ot Z79.899 OTHER HALF-WAY (CURRENT) DRUG THERAPY 07/02/2016 REJI BOND MD Ot F17.210 NICOTINE DEPENDENCE, CIGARETTES, UNCOMPL 07/02/2016 REJI BOND MD Ot I10 ESSENTIAL (PRIMARY) HYPERTENSION 07/02/2016 REJI BOND MD Ot J44.9 CHRONIC OBSTRUCTIVE PULMONARY DISEASE, U 07/02/2016 REJI BOND MD Ot M54.6 PAIN IN THORACIC SPINE 07/02/2016 REJI BOND MD Ot R23.4 CHANGES IN SKIN TEXTURE 07/02/2016 REJI BOND MD Ot Z79.899 OTHER LINE PRODUCTION COOK (CURRENT) DRUG THERAPY 07/17/2016 Ot V72.84 EXAM [...] 07/17/2016 AC EDITA DUNN Ot Z79.899 OTHER LINE PRODUCTION COOK (CURRENT) DRUG THERAPY 07/19/2016 EDITA SHEN DO Ot F17.210 NICOTINE DEPENDENCE, CIGARETTES, UNCOMPL 07/19/2016 EDITA SHEN DO Ot G89.29 OTHER CHRONIC PAIN 07/19/2016 AC EDITA DUNN Ot I10 ESSENTIAL (PRIMARY) HYPERTENSION 07/19/2016 AC EDITA DUNN Ot J44.9 CHRONIC OBSTRUCTIVE PULMONARY DISEASE, U 07/19/2016 AC EDITA DUNN Ot M54.5 LOW BACK PAIN 07/19/2016 AC EDITA DUNN Ot Z79.899 OTHER HALF-WAY (CURRENT) DRUG THERAPY 07/24/2016 AC EDITA DUNN Ot F17.210 NICOTINE DEPENDENCE, CIGARETTES, UNCOMPL 07/24/2016 AC EDITA DUNN Ot G89.29 OTHER CHRONIC PAIN 07/24/2016 AC EDITA DUNN Ot I10 ESSENTIAL (PRIMARY) HYPERTENSION 07/24/2016 AC EDITA DUNN Ot J44.9 CHRONIC OBSTRUCTIVE PULMONARY DISEASE, U 07/24/2016 AC EDITA DUNN Ot M54.5 LOW BACK PAIN 07/24/2016 AC EDITA DUNN Ot Z79.899 OTHER LINE PRODUCTION COOK (CURRENT) DRUG THERAPY 08/28/2016 Ot V72.84 EXAM [...] 08/28/2016 ILEANA OSBORNE APRN Ot Z79.899 OTHER LINE PRODUCTION COOK (CURRENT) DRUG THERAPY 08/30/2016 ILEANA OSBORNE APRN [...] 08/30/2016 ILEANA OSBORNE APRN Ot Z79.899 OTHER LINE PRODUCTION COOK (CURRENT) DRUG THERAPY 09/02/2016 ILEANA OSBORNE APRN [...] 09/02/2016 ILEANA OSBORNE APRN Ot Z79.899 OTHER HALF-WAY (CURRENT) DRUG THERAPY 09/14/2016 ILEANA OSBORNE APRN Ot F17.210 NICOTINE DEPENDENCE, CIGARETTES, UNCOMPL 09/14/2016 ILEANA OSBORNE AGENCY RECRUITER Ot I10 ESSENTIAL (PRIMARY) HYPERTENSION 09/14/2016 ILEANA OSBORNE APRN Ot J44.9 CHRONIC OBSTRUCTIVE PULMONARY DISEASE, U 09/14/2016 ILEANA OSBORNE APRN Ot L84 CORNS AND CALLOSITIES 09/14/2016 ILEANA OSBORNE APRN Ot M54.41 LUMBAGO WITH SCIATICA, RIGHT SIDE 09/14/2016 ILEANA OSBORNE APRN Ot M79.671 PAIN IN RIGHT FOOT 09/14/2016 ILEANA OSBORNE APRN Ot Z79.899 OTHER HALF-WAY (CURRENT) DRUG THERAPY 09/27/2016 ILEANA OSBORNE APRN Ot F17.210 NICOTINE DEPENDENCE, CIGARETTES, UNCOMPL 09/27/2016 ILEANA OSBORNE AGENCY RECRUITER Ot I10 ESSENTIAL (PRIMARY) HYPERTENSION 09/27/2016 ILEANA OSBORNE APRN Ot J44.9 CHRONIC OBSTRUCTIVE PULMONARY DISEASE, U 09/27/2016 ILEANA OSBORNE AGENCY RECRUITER Ot L84 CORNS AND CALLOSITIES 09/27/2016 ILEANA OSBORNE APRN Ot M54.41 LUMBAGO WITH SCIATICA, RIGHT SIDE 09/27/2016 ILEANA OSBORNE APRN Ot M79.671 PAIN IN RIGHT FOOT 09/27/2016 ILEANA OSBORNE APRN Ot Z79.899 OTHER HALF-WAY (CURRENT) DRUG THERAPY 10/17/2016 Ot V72.84 EXAM [...] HE 03/16/2017 ISAC ISSA MD, Ot B96.20 [facility] ESCHERICHIA COLI THE CAUSE OF DI 03/16/2017 [...] ISSA MD, Ot Y92.[address] IN [facility] 03/16/2017 ISAC ISSA MD, Ot [...] Z90.49 ACQUIRED ABSENCE OF OTHER SPECIFIED PART 02/07/2018 Ot V72.84 EXAM PRE- OPERATIVE NOS 02/07/2018 CHEYANNE VERA MD Ot 401.1 BENIGN HYPERTENSION 02/07/2018 CHEYANNE VERA MD Ot 780.52 INSOMNIA, UNSPECIFIED 02/07/2018 CHEYANNE VERA MD Ot 786.50 CHEST PAIN NOS 02/07/2018 CHEYANNE VERA MD Ot 788.1 DYSURIA 02/07/2018 HARSHA FISHMAN MD Ot 070.70 UNSPECIFIED VIRAL HEPATITIS C WITHOUT HE 02/07/2018 ILEANA OSBORNE AGENCY RECRUITER Ot F17.210 NICOTINE DEPENDENCE, CIGARETTES, UNCOMPL 02/07/2018 ILEANA OSBORNE APRN Ot I10 ESSENTIAL (PRIMARY) HYPERTENSION 02/07/2018 ILEANA OSBORNE APRN Ot J44.9 CHRONIC OBSTRUCTIVE PULMONARY DISEASE, U 02/07/2018 ILEANA OSBORNE APRN Ot M54.5 LOW BACK PAIN 02/07/2018 ILEANA OSBORNE APRN Ot Z87.19 PERSONAL HISTORY OF OTHER DISEASES OF TH 02/07/2018 ILEANA OSBORNE AGENCY RECRUITER Ot Z88.2 ALLERGY STATUS TO SULFONAMIDES STATUS 02/07/2018 ILEANA OSBORNE APRN Ot Z90.49 ACQUIRED ABSENCE OF OTHER SPECIFIED PART 02/09/2018 ILEANA OSBORNE APRN Ot F17.210 NICOTINE DEPENDENCE, CIGARETTES, UNCOMPL 02/09/2018 ILEANA OSBORNE APRN Ot I10 ESSENTIAL (PRIMARY) HYPERTENSION 02/09/2018 ILEANA OSBORNE APRN Ot J44.9 CHRONIC OBSTRUCTIVE PULMONARY DISEASE, U 02/09/2018 ILEANA OSBORNE APRN Ot M54.5 LOW BACK PAIN 02/09/2018 ILEANA OSBORNE APRN Ot Z87.19 PERSONAL HISTORY OF OTHER DISEASES OF TH 02/09/2018 ILEANA OSBORNE APRN Ot Z88.2 ALLERGY STATUS TO SULFONAMIDES STATUS 02/09/2018 ILEANA OSBORNE APRN Ot Z90.49 ACQUIRED ABSENCE OF OTHER SPECIFIED PART Procedures Code [place] [address] ROUTINE VENIPUNCTURE 11/07/2012 37160 CBC 11/07/2012 78775 CMP 11/07/2012 5954432 GFR CALC (RESULT ONLY) 11/07/2012 51833 PT/INR 11/07/2012 [id number] HCV INDEX (RESULT ONLY) 11/07/2012 96619 HEPATITIS PROFILE 11/07/2012 96452 HIV ANTIBODIES (RML) 11/07/2012 98660 URINE DRUG SCREEN (IN-HOUSE ) 11/12/2012 97922 HEP C PCR QUANT W/SANJUANA 11/12/2012 27589 ROUTINE VENIPUNCTURE 12/05/2012 58322 UA W/ CULTURE IF INDICATED 12/05/2012 64444 URINE DRUG SCREEN (IN-HOUSE ) 12/05/2012 65575 PSA FREE AND TOTAL 12/05/2012 [place] 12/17/2012 72528 UA LONG DIP 01/08/2013 86396 URINE DRUG SCREEN (IN-HOUSE ) 01/08/2013 25478 CULTURE URINE 01/10/2013 91759 URINE PCP GC/MS 01/10/2013 90896 ROUTINE VENIPUNCTURE 01/31/2013 41687 EKG, TRACING 01/31/2013 40396 HEMOGLOBIN (IN-HOUSE) 01/31/2013 58222 URINE DRUG SCREEN (IN-HOUSE ) 01/31/2013 06735 MAGNESIUM 01/31/2013 56035 BMP 01/31/2013 9240433 GFR CALC (RESULT ONLY) 01/31/2013 2000F BLOOD PRESSURE CHECK 02/04/2013 22825 ROUTINE VENIPUNCTURE 02/07/2013 84765 UA W/ CULTURE IF INDICATED 02/07/2013 15374 BMP 02/07/2013 2575677 GFR CALC (RESULT ONLY) 02/07/2013 82543 ROUTINE VENIPUNCTURE 02/15/2013 77732 URINE DRUG SCREEN (IN-HOUSE ) 02/15/2013 26962 CBC 02/15/2013 68172 CMP 02/15/2013 [id number] GFR CALC (RESULT ONLY) 02/15/2013 89707 PT/INR 02/16/2013 49079 TSH 02/16/2013 84662 URINE DRUG SCREEN (IN-HOUSE ) 02/19/2013 55193 UA W/ CULTURE IF INDICATED 02/19/2013 76003 TROPONIN, QUANT 02/19/2013 42277 D-DIMER 02/20/2013 00982 LIVER BIOPSY, ULTRASOUND- GUIDED 02/21/2013 56427 URINE OXYCODONE GC/MS 02/21/2013 97822 HEP C PCR QUANT (SERIAL) 02/21/2013 74513 STRESS ECHO 02/21/2013 20350 OXIMETRY 02/21/2013 PSYCHIATR TK AGUILAR 02/21/2013 47680 URINE DRUG SCREEN (IN-HOUSE ) 03/08/2013 99713 ROUTINE VENIPUNCTURE 04/25/2013 96356 CBC 04/25/2013 [id number] CMP 04/25/2013 [id number] GFR CALC (RESULT ONLY) 04/25/2013 13584 ROUTINE VENIPUNCTURE 05/06/2013 36177 CBC 05/06/2013 03286 CMP 05/06/2013 [id number] GFR CALC (RESULT ONLY) 05/06/2013 38434 HEP C PCR QUANT (SERIAL) 05/14/2013 05615 ROUTINE VENIPUNCTURE 07/09/2013 93159 MAGNESIUM 07/09/2013 35034 CBC 07/09/2013 [id number] GFR CALC (RESULT ONLY) 07/09/2013 65900 CMP 07/09/2013 05733 ROUTINE VENIPUNCTURE 09/30/2013 24088 URINE DRUG SCREEN (IN-HOUSE ) 09/30/2013 95924 CMP 09/30/2013 [id number] GFR CALC (RESULT ONLY) 09/30/2013 78951 CBC 09/30/2013 00707 PT/INR 09/30/2013 08023 HEP C PCR QUANT (SERIAL) 2013 55915 ROUTINE VENIPUNCTURE 01/07/2014 95238 CMP 01/07/2014 51061 CBC 01/07/2014 526694 [employer] DRUG SCREEN 01/07/2014 52080 [employer] 04/21/2014 UROLOGY OBI BARTON 04/21/2014 35082 ROUTINE VENIPUNCTURE 06/18/2014 56539 URINE DRUG SCREEN (IN-HOUSE ) 06/18/2014 95832 CBC 06/18/2014 [id number] GFR CALC (RESULT ONLY) 06/18/2014 27128 CMP 06/18/2014 45641 HEP C PCR QUANT (SERIAL) 06/19/2014 74733 CULTURE URINE 07/15/2014 99186 UA W/ CULTURE IF INDICATED 07/15/2014 23187 URINE DRUG SCREEN (IN-HOUSE ) 07/15/2014 83464 URINE DRUG SCREEN (IN-HOUSE ) 08/11/2014 72869 THERAPUTIC INJ SQ/IM 12/12/2014 J1885 TORADOL INJ 12/12/2014 PHYSICAL WOUND CARE, [facility] 12/15/2014 Results Test Result Range Bacterial blood culture - 03/11/17 14:20 FREE TEXT EXTERNAL REFER TO BLOOD CULTURE M7716 NRG QUANTITY OF GROWTH Isolated NRG Bacterial blood culture [id number] NRG Complete blood count (CBC) with automated [...] NRG Blood erythrocyte morphology finding identification NORMAL NR Bacterial blood culture - 03/11/17 14:33 FREE TEXT EXTERNAL SENSITIVE TO [facility] (03/12/17) NRG QUANTITY OF GROWTH Isolated NR Bacterial blood culture [id number] [facility] FREE TEXT ENTRY 2 COMPLETE SENSITIVITY REPORTED 03/13/[address] [facility] FREE TEXT ENTRY 3 AT 7:15. [facility] Bacterial susceptibility panel - 03/11/17 14:33 [...] test by minimum inhibitory concentration - NRG Magnesium - 03/11/17 14:36 Magnesium 1.8 mg/dL [...] culture - 03/11/17 14:52 Bacterial urine culture [id number] NRG COLONY COUNT <10,000 NRG FTX;REPORTABLE SENSITIVE TO [facility] (03/12) NRG FREE TEXT ENTRY 2 COMPLETE SENSITIVITY REPORTED 03/13/17 NRG FREE TEXT ENTRY 3 AT 7:15. [facility] Bacterial susceptibility panel - 03/11/17 14:52 [...] susceptibility test by minimum inhibitory concentration - [facility] Bacterial susceptibility panel - 03/11/17 14:52 [...] OF GROWTH Isolated NR Bacterial blood culture [id number] [facility] Bacterial susceptibility panel - 06/19/17 12:09 [...] FREE TEXT EXTERNAL REFER TO BLOOD CULTURE [id number] NRG QUANTITY OF GROWTH Isolated NRG Bacterial blood culture [id number] NRG Complete urinalysis with reflex to culture [...] culture - 06/19/17 13:30 Bacterial urine culture [id number] NRG COLONY COUNT <10,000 NRG FTX;REPORTABLE SENSITIVITY [...] susceptibility test by minimum inhibitory concentration - [facility] Bacterial susceptibility panel - 06/19/17 13:30 [...] culture - 10/18/17 17:40 Bacterial blood culture [facility] Influenza virus A and B antigen detection - 10/18/17 19:10 FLU RESULT NEGATIVE FOR INFLUENZA A AND B ANTIGENS BY [facility] Complete blood count (CBC) with automated white blood cell (WBC) differential - 11/29/18 17:17 Blood leukocytes automated count (number/volume) 10.1 10*3/uL 4.3-11.0 Blood erythrocytes automated count (number/volume) 4.90 10*6/uL 4.35-5.85 Venous blood hemoglobin measurement (mass/volume) 14.8 g/dL 13.3-17.7 Blood hematocrit (volume fraction) 42 % 40-54 Automated erythrocyte mean corpuscular volume 86 [foz_us] 80-99 Automated erythrocyte mean corpuscular hemoglobin (mass per erythrocyte) 30 pg 25-34 Automated erythrocyte mean corpuscular hemoglobin concentration measurement ( mass/volume) 35 g/dL 32-36 Automated erythrocyte distribution width ratio 13.4 % 10.0-14.5 Automated blood platelet count (count/volume) 205 10*3/uL 130-400 Automated blood platelet mean volume measurement 10.6 [foz_us] 7.4-10.4 Automated blood neutrophils/100 leukocytes 93 % 42-75 Automated blood lymphocytes/100 leukocytes 5 % 12-44 Blood monocytes/100 leukocytes 2 % 0-12 Automated blood eosinophils/100 leukocytes 0 % 0-10 Automated blood basophils/100 leukocytes 0 % 0-10 Blood neutrophils automated count (number/volume) 9.4 10*3 1.8-7.8 Blood lymphocytes automated count (number/volume) 0.5 10*3 1.0-4.0 Blood monocytes automated count (number/volume) 0.2 10*3 0.0-1.0 Automated eosinophil count 0.0 10*3/uL 0.0-0.3 Automated blood basophil count (count/volume) 0.0 10*3/uL 0.0-0.1 Comprehensive metabolic panel - 11/29/18 17:17 Serum or plasma sodium measurement (moles/volume) 136 mmol/L 135-145 Serum or plasma potassium measurement (moles/volume) 4.4 mmol/L 3.6-5.0 Serum or plasma chloride measurement (moles/volume) 102 mmol/L 98-107 Carbon dioxide 18 mmol/L 21-32 Serum or plasma anion gap determination (moles/volume) 16 mmol/L 5-14 Serum or plasma urea nitrogen measurement (mass/volume) 34 mg/dL 7-18 Serum or plasma creatinine measurement (mass/volume) 2.63 mg/dL 0.60-1.30 Serum or plasma urea nitrogen/creatinine mass ratio 13 NRG Serum or plasma creatinine measurement with calculation of estimated glomerular filtration rate 25 NRG Serum or plasma glucose measurement (mass/volume) 98 mg/dL 70-105 Serum or plasma calcium measurement (mass/volume) 9.3 mg/dL 8.5-10.1 Serum or plasma total bilirubin measurement (mass/volume) 1.4 mg/dL 0.1-1.0 Serum or plasma alkaline phosphatase measurement (enzymatic activity/volume) 71 U/L 40-136 Serum or plasma aspartate aminotransferase measurement (enzymatic activity/ volume) 18 U/L 5-34 Serum or plasma alanine aminotransferase measurement (enzymatic activity/volume ) 24 U/L 0-55 Serum or plasma protein measurement (mass/volume) 7.4 g/dL 6.4-8.2 Serum or plasma albumin measurement (mass/volume) 3.7 g/dL 3.2-4.5 CALCIUM CORRECTED 9.5 mg/dL 8.5-10.1 Blood manual differential performed detection - 11/29/18 17:17 Blood monocytes/100 leukocytes 1 % NRG Manual blood segmented neutrophils/100 leukocytes 81 % NRG Blood band neutrophils/100 leukocytes 13 % NRG Manual blood lymphocytes/100 leukocytes 5 % NRG Manual eosinophils/100 leukocytes in nose 0 % NRG Manual blood basophils/100 leukocytes 0 % NRG Blood erythrocyte morphology finding identification NORMAL NRG Serum or plasma lithium measurement (moles/volume) - 11/29/18 17:17 BNP level 169.8 pg/mL <100.0 Fibrin D-dimer FEU measurement in platelet poor plasma (mass/volume) - 17:17 Fibrin D-dimer FEU measurement in platelet poor plasma (mass/volume) 5.42 ug/mL 0.00-0.49 Influenza virus A and B antigen detection - 11/29/18 17:19 FLU RESULT NEGATIVE FOR INFLUENZA A AND B ANTIGENS BY [place] NRG Blood lactic acid measurement (moles/volume) - 11/29/18 17:46 Blood lactic acid measurement (moles/volume) 3.04 mmol/L 0.50-2.00 Complete urinalysis with reflex to culture - 11/29/18 18:51 Urine color determination YULIA NRG Urine clarity determination SLIGHTLY CLOUDY NRG Urine pH measurement by test strip 8 5-9 Specific gravity of urine by test strip 1.010 1.016- 1.022 Urine protein assay by test strip, semi-quantitative 2+ NEGATIVE Urine glucose detection by automated test strip NEGATIVE NEGATIVE Erythrocytes detection in urine sediment by light microscopy 2+ NEGATIVE Urine ketones detection by automated test strip NEGATIVE NEGATIVE Urine nitrite detection by test strip [...] detection in urine sediment by light microscopy FEW NRG Crystals detection in urine sediment by light microscopy NONE NRG Casts detection in urine sediment by light microscopy NONE NRG Mucus detection in urine sediment by light microscopy NEGATIVE NRG Complete urinalysis with reflex to culture YES NRG Encounters ACCT No. Visit Date/Time Discharge Status Pt. Type Provider Facility Loc./Unit Complaint [id number] 12/26/2014 08:50:00 12/26/2014 23:59:59 CLS Outpatient REBEKA RAM APRN [id number] 12/12/2014 09:04:00 12/12/2014 23:59:59 CLS Outpatient KARIE HART APRN [id number] 12/05/2014 13:51:00 12/05/2014 23:59:59 CLS Outpatient KARIE HART APRN [id number] 10/30/2014 14:22:00 10/30/2014 23:59:59 CLS Outpatient KARIE HART APRN [id number] 10/21/2014 11:09:00 10/21/2014 23:59:59 CLS Outpatient KARIE HART APRN [id number] 10/06/2014 11:59:00 10/06/2014 23:59:59 CLS Outpatient FRANK MULLINS APRN [id number] 08/11/2014 09:04:00 08/11/2014 23:59:59 CLS Outpatient KARIE HART APRN [id number] 08/11/2014 09:04:00 08/11/2014 23:59:59 CLS Outpatient ALFREDO PETERSON DOLilia Ayala [id number] 07/15/2014 13:26:00 07/15/2014 23:59:59 CLS Outpatient KRISTEN DUNN LINN Ayala [id number] 06/18/2014 09:37:00 06/18/2014 23:59:59 CLS Outpatient KARIE HART APRN [id number] 05/09/2014 08:48:00 05/09/2014 23:59:59 CLS Outpatient LINN PETERSON DO Jamie [id number] 04/21/2014 11:18:00 04/21/2014 23:59:59 CLS Outpatient KRISTEN DUNN LINN Ayala [id number] 01/07/2014 10:34:00 01/07/2014 23:59:59 CLS Outpatient ALFREDO PETERSON DOLilia Ayala [id number] 09/30/2013 10:27:00 09/30/2013 23:59:59 CLS Outpatient HARSHA FISHMAN MD [id number] 08/13/2013 14:12:00 08/13/2013 23:59:59 CLS Outpatient BENY CARRASCO APRN [id number] 08/13/2013 14:12:00 08/13/2013 23:59:59 CLS Outpatient BENY CARRASCO APRN [id number] 07/09/2013 09:06:00 07/09/2013 23:59:59 CLS Outpatient HARSHA FISHMAN MD [id number] 05/27/2013 13:27:00 05/27/2013 23:59:59 CLS Outpatient TK AGUILAR DO [id number] 12/17/2012 14:28:00 12/17/2012 23:59:59 CLS Outpatient PETERSON LINN [id number] 12/05/2012 13:17:00 12/05/2012 23:59:59 CLS Outpatient [id number] 11/07/2012 09:46:00 11/07/2012 23:59:59 CLS Outpatient ARIK GREEN MD [id number] 05/06/2013 10:38:00 Document Registration [id number] 04/25/2013 10:20:00 Document Registration [id number] 03/08/2013 13:56:00 Document Registration [id number] 03/08/2013 13:56:00 Document Registration [id number] 02/19/2013 10:44:00 Document Registration [id number] 02/07/2013 14:17:00 Document Registration [id number] 02/07/2013 14:17:00 Document Registration [id number] 02/04/2013 11:09:00 Document Registration [id number] 01/29/2013 08:41:00 Document Registration [id number] 01/08/2013 10:58:00 Document Registration [id number] 01/08/2013 10:58:00 Document Registration [id number] 11/07/2012 09:46:00 Document Registration [id number] 04/12/2017 03:07:00 Document Registration [email or web address] 12/15/2014 16:13:43 ACT Document Registration [email or web address] 08/23/2013 16:34:17 ACT Document Registration [id number] 06/01/2017 22:32:00 06/01/2017 23:16:00 DIS Outpatient Ileana Osborne [id number] 06/01/2017 22:58:58 Document Registration [id number] 02/07/2018 20:18:00 02/07/2018 20:44:00 DIS Emergency ILEANA OSBORNE APRN [facility] ER BACK PAIN [id number] 10/18/2017 16:33:00 10/18/2017 21:16:00 DIS Emergency ILEANA OSBORNE APRN [facility] ER SOA,FEVER,CHILLS [id number] 06/19/2017 11:15:00 06/19/2017 15:22:00 DIS Emergency ILEANA OSBORNE APRN [facility] ER LT RIB PAIN [id number] 03/11/2017 15:44:00 03/16/2017 16:05:00 DIS Inpatient MAEGAN BELLO, ISAC Carrera [facility] 4TH SEPSIS,UTI,HEAT EXHAUSTION,HYPONATREMIA [id number] 10/17/2016 22:09:00 10/18/2016 00:49:00 DIS Emergency REJI BOND MD [facility] ER BACK PAIN [id number] 08/28/2016 15:16:00 08/28/2016 16:40:00 DIS Emergency ILEANA OSBORNE APRN [facility] ER BACK PAIN/R FOOT INJ [id number] 07/17/2016 16:39:00 07/17/2016 18:24:00 DIS Emergency AC EDITA DUNN [facility] ER BACK PAIN [id number] 06/26/2016 14:17:00 06/26/2016 14:53:00 DIS Emergency REJI BOND MD [facility] ER L SIDE OF BACK AND NECK LOCKING UP [id number] 04/08/2016 09:17:00 04/08/2016 10:13:00 DIS Emergency EDITA SHEN DO [facility] ER BACK PAIN [id number] 11/25/2015 16:03:00 11/25/2015 16:40:00 DIS Emergency ILEANA OSBORNE APRN [facility] ER BROKE LEFT ANKLE [id number] 11/14/2015 16:06:00 11/14/2015 19:22:00 DIS Emergency EDITA SHEN DO [facility] ER NECK/BACK PAIN [id number] 10/29/2015 04:48:00 10/29/2015 05:33:00 DIS Emergency REJI BOND MD [facility] ER BACK PAIN [id number] 08/25/2015 04:59:00 08/25/2015 05:36:00 DIS Emergency REJI BOND MD [facility] ER BACK PAIN [id number] 08/18/2015 10:04:00 08/18/2015 10:48:00 DIS Emergency BELKYS XIONG MD [facility] ER BACK PAIN [id number] 08/05/2015 06:38:00 08/05/2015 06:59:00 DIS Emergency ANDREA BELLO, BARBARA Rodrigues [facility] ER BACK PAIN [id number] 07/27/2015 23:49:00 07/28/2015 00:36:00 DIS Emergency INGA BELLO, BELKYS [place]ahona [facility] ER BACK PAIN [id number] 12/15/2014 10:05:00 12/16/2014 14:00:00 DIS Outpatient NICHOLAS BELLO, JUAN C Hernández [facility] WOUNDCARE [id number] 12/13/2014 08:51:00 12/13/2014 09:13:00 DIS Emergency ANDREA BELLO, BARBARA Rodrigues [facility] ER FOOT PAIN [id number] 12/12/2014 12:20:00 12/12/2014 12:55:00 DIS Emergency ILEANA OSBORNE APRN [facility] ER FOOT PAIN [id number] 09/26/2013 15:10:00 09/26/2013 23:59:59 CLS Outpatient [id number] 09/05/2013 15:10:00 09/05/2013 23:59:59 CLS Outpatient [id number] 08/03/2013 14:18:00 08/03/2013 18:55:00 DIS Emergency REJI BOND MD [facility] ER R ANKLE PAIN [id number] 03/18/2013 09:33:00 03/18/2013 23:59:59 CLS Outpatient HARSHA FISHMAN MD [facility] RAD HEP C [id number] 02/27/2013 12:25:00 02/27/2013 23:59:59 CLS Outpatient CHEYANNE VERA MD [facility] CARD RECURRENT CHEST PAIN [id number] 11/29/2018 18:26:00 ACT Inpatient JCARLOS KATE MD [facility] ICU SEPSIS SEVERE, LLL PNEUMONIA [id number] 12/12/2014 12:21:00 Document Registration [id number] 01/02/2013 08:22:00 Document Registration [id number] 01/07/2010 11:06:00 Document Registration [id number] 04/10/2018 10:20:00 04/10/2018 23:59:59 [facility] Outpatient KARIE HART APRN [facility]
[2018-11-29] MEDS ORDERED: LACTATED RINGERS 1,000 ML IV ONE (21:10)
[2018-11-29] MEDS ORDERED: NOREPINEPHRINE 4 MG in NS (IVPB) 250 ML IV SCH ×2 (21:15→23:28)
[2018-11-29] MEDS ORDERED: LACTATED RINGERS 2,789.58 ML IV PRN (21:15)
[2018-11-29] MEDS ORDERED: ACETAMINOPHEN 325 MG TABLET PO PRN (21:15)
[2018-11-29] MEDS ORDERED: NS IV 1000 ML 1,000 ML ONE (21:17)
[2018-11-29] MEDS ORDERED: VANCOMYCIN 1 GM/NS 250 ML IVPB IV SCH ×2 (21:30)
[2018-11-29] MEDS ORDERED: CATHETER FLUSH 10 ML SYR IV PRN (21:30)
[2018-11-29] MEDS: LACTATED RINGERS 1,000 ML IV SCH (22:30)
[2018-11-29] MEDS ORDERED: PIPERACILLIN/TAZO 4.5 GM/NS 100 ML IV SCH ×2 (23:15)
[2018-11-29] MEDS ORDERED: LACTATED RINGERS IV PRN (23:30)
[2018-11-30] VITALS (15 sets, daily range): BP systolic 89–156; BP diastolic 54–103
[2018-11-30] MEDS ORDERED: RT-ALBUTEROL/IPRATROPIUM 3 ML (DUONEB) VIAL INH PRN
[2018-11-30] MEDS: LACTATED RINGERS 1,000 ML IV SCH ×5 (03:00→22:08)
[2018-11-30 03:30] LABS: BASOPHILS % (AUTO) 0 % (0-10); EOSINOPHILS % (AUTO) 0 % (0-10); HEMATOCRIT 35 % (40-54); HEMOGLOBIN 11.9 G/DL (13.3-17.7); LYMPHOCYTES # (AUTO) 0.5 X 10^3 (1.0-4.0); LYMPHOCYTES % (AUTO) 4 % (12-44); MEAN CORPUSCULAR HEMOGLOBIN 30 PG (25-34); MEAN CORPUSCULAR HGB CONC 35 G/DL (32-36); MEAN CORPUSCULAR VOLUME 88 FL (80-99); MEAN PLATELET VOLUME 10.7 FL (7.4-10.4); MONOCYTES # (AUTO) 0.4 X 10^3 (0.0-1.0); MONOCYTES % (AUTO) 3 % (0-12); NEUTROPHILS # (AUTO) 13.4 X 10^3 (1.8-7.8); NEUTROPHILS % (AUTO) 94 % (42-75); PLATELET COUNT 165 10^3/uL (130-400); RED CELL DISTRIBUTION WIDTH 13.6 % (10.0-14.5); WHITE BLOOD COUNT 14.3 10^3/uL (4.3-11.0)
[2018-11-30 03:51] LABS: CALCIUM 8.3 MG/DL (8.5-10.1); CREATININE SERUM 1.99 MG/DL (0.60-1.30); MAGNESIUM 1.7 MG/DL (1.8-2.4); PHOSPHORUS 2.2 MG/DL (2.3-4.7); POTASSIUM 4.1 MMOL/L (3.6-5.0)
[2018-11-30] MEDS: RT-ALBUTEROL/IPRATROPIUM 3 ML (DUONEB) VIAL INH SCH ×6 (03:53→22:58)
--- NOTE | 2018-11-30 03:55 | NUR ---
This RN called EICU to report low magnesium level and elevated BUN and creatinine. Orders received at this time to replace magnesium.
[2018-11-30] MEDS: CATHETER FLUSH 10 ML SYR IV SCH ×4 (04:15→22:08)
[2018-11-30] MEDS ORDERED: BISACODYL 10 MG SUPP (DULCOLAX) PR PRN (04:45)
[2018-11-30] MEDS ORDERED: BISACODYL 5 MG (DULCOLAX) TABLET PO ONE (04:45)
[2018-11-30] MEDS: MAGNESIUM 1 GM/100 ML IVPB 100 ML IV SCH ×2 (05:00→06:32)
[2018-11-30] MEDS ORDERED: MAGNESIUM 1 GM/100 ML IVPB 100 ML IV SCH (06:00)
[2018-11-30] MEDS ORDERED: POTASSIUM CL 10MEQ/50ML IVPB 50 ML IV SCH (06:00)
[2018-11-30] MEDS ORDERED: KCL 20 MEQ TAB (K-DUR) PO SCH (06:00)
[2018-11-30] MEDS ORDERED: NS IV 1000 ML 1,000 ML ONE (06:11)
[2018-11-30] MEDS ORDERED: NS IV 1000 ML 1,000 ML IV SCH (06:15)
[2018-11-30] MEDS ORDERED: FLU QUADRIvalent (5+ YOA) 2018-2019 (AFLURIA) 0.5 ML IM ONE (07:00)
--- NOTE | 2018-11-30 07:02 | NUR ---
PTD VANCOMYCIN LABS: SCR 1.99 (2.63) A/P: PATIENT RECEIVED VANCOMYCIN 1 GRAM AT 2300, WE WILL DOSE 15MG/KG Q12 X 3 DAYS (PER ORDER) ~ 1,500MG IV Q12 HOURS, IF PLAN TO CONTINUE OR RENAL FXN CHANGES RECOMMEND ORDERING A LEVEL TO EVALUATE CLEARANCE.
--- NOTE | 2018-11-30 07:14 | Pulmonary Consultation ---
History of Present Illness History of Present Illness Date of Consultation 11/30/18 07:09 Time Seen by Provider: 07:09 Date of Admission History of Present Illness 63yo with hx of COPD presented to ED from [facility] where he has been incarcerated for the past 9 months. Presented secondary to low back pain, dizziness, and fever of 102. Allergies and Home Medications Allergies Coded Allergies: Sulfa (Sulfonamide Antibiotics) (Verified Allergy, Unknown, 11/14/15) PT STATES "I JUST CAN'T HAVE IT" Home Medications Albuterol Sulfate 1 Puff Puff, 2 PUFF IH Q4H, (Reported) 1 PUFF = 90 MCG Doxepin HCl 100 Mg Capsule, 100 MG PO BID, (Reported) Methylprednisolone 4 Mg Tab.ds.pk, 4 MG PO UD Prescribed by: ILEANA OSBORNE on 02/07/182034 Prednisone 20 Mg Tab, 20 MG PO DAILY, (Reported) Take 3 tabs(60mg)daily, decrease by 1/2 tab(10mg)daily. Past Bbxophf-Cmgnlz-Banmua Hx Patient Social History Alcohol Use: Occasionally Uses Recreational Drug Use: No Smoking Status: Former Smoker Type Used: Cigarettes Former Smoker, Quit: Feb 25, 2017 Recent Foreign Travel: No Contact w/Someone Who Travel: No Recent Infectious Disease Expo: No Recent Hopitalizations: No Immunizations Up To Date Tetanus Booster (TDap): Unknown Date of Pneumonia Vaccine: Nov 16, 2012 Date of Influenza Vaccine: Oct 14, 2016 Seasonal Allergies Seasonal Allergies: No Past Medical History Surgeries: Yes Appendectomy Respiratory: Yes COPD Currently Using CPAP: No Currently Using BIPAP: No Cardiac: No Hypertension Neurological: No Reproductive Disorders: No Genitourinary: No (current uti) Gastrointestinal: No Hepatitis Musculoskeletal: No Arthritis, Chronic Back Pain Endocrine: No HEENT: No Cancer: No Psychosocial: No Integumentary: Yes (ulcer present to lle) Blood Disorders: No Adverse Reaction/Blood Tranf: No Family Medical History Patient reports no known family medical history. Sepsis Event Evaluation Height, Weight, BMI Height: 5'11.00" Weight: 210lbs. 0.0oz. 95.040327ds; 29.6 BMI Method:Stated Exam Exam Vital Signs Date Time Temp Pulse Resp B/P (MAP) Pulse Ox O2 Delivery O2 Flow Rate FiO2 11/30/18 06:00 86 29 130/88 (102) 100 Nasal Cannula 2.00 11/30/18 05:00 94 19 100/71 (81) 100 Nasal Cannula 2.00 11/30/18 04:00 97.6 11/30/18 04:00 Nasal Cannula 4.00 11/30/18 04:00 89 20 125/90 (102) 92 Nasal Cannula 2.00 11/30/18 03:58 98 Nasal Cannula 4.00 11/30/18 03:00 96 20 96/63 (74) 92 Nasal Cannula 2.00 11/30/18 02:45 98 20 113/79 (90) 93 Nasal Cannula 2.00 11/30/18 02:00 98 23 116/79 (91) 92 Nasal Cannula 2.00 11/30/18 01:53 97.9 11/30/18 01:00 105 35 111/95 (100) 95 Nasal Cannula 2.00 11/30/18 00:45 96 32 109/75 (86) 92 Nasal Cannula 2.00 11/30/18 00:35 100 15 111/74 (86) 93 Nasal Cannula 2.00 11/30/18 00:15 130 32 89/54 (66) 93 Nasal Cannula 2.00 11/30/18 00:00 Nasal Cannula 2.00 11/30/18 00:00 101 27 99/68 (78) 98 Nasal Cannula 2.00 11/29/18 23:45 101 28 103/69 (80) Nasal Cannula 2.00 11/29/18 23:32 155 90 2 11/29/18 23:30 102 19 97/73 (81) 92 Nasal Cannula 2.00 11/29/18 23:26 99.4 11/29/18 23:15 114 26 98/69 (79) 91 Nasal Cannula 2.00 11/29/18 23:00 106 22 98/65 (76) 92 Nasal Cannula 2.00 11/29/18 22:45 107 14 85/56 (66) 90 Nasal Cannula 2.00 11/29/18 22:30 110 22 100/63 (75) 90 Nasal Cannula 2.00 11/29/18 22:15 111 26 117/69 (85) 93 Nasal Cannula 2.00 11/29/18 22:00 117 23 114/79 (91) 93 Nasal Cannula 2.00 11/29/18 21:56 99.4 11/29/18 21:54 99.4 11/29/18 21:45 117 23 106/102 (103) 93 Nasal Cannula 2.00 11/29/18 21:30 118 16 100/70 (80) 91 Nasal Cannula 2.00 11/29/18 21:30 126 11/29/18 21:24 101.0 11/29/18 21:15 118 23 89/63 (72) 91 Nasal Cannula 2.00 11/29/18 21:15 Nasal Cannula 2.00 11/29/18 21:00 101.0 120 25 98/69 (79) 92 Room Air 11/29/18 21:00 Room Air 11/29/18 20:56 99.4 123 18 100/66 (77) 94 Room Air 11/29/18 20:39 99.4 129 18 100/66 94 Room Air 11/29/18 18:09 93 Room Air 11/29/18 16:59 102.8 155 22 I & O 11/30/18 06:59 Intake Total 4439.58 ml Output Total 2180 ml Balance 2259.58 ml Height & Weight Height: 5'11.00" Weight: 210lbs. 0.0oz. 95.743790pl; 29.6 BMI Method:Stated Capillary Refill: Less Than 3 Seconds Gastrointestinal: normal bowel sounds, non tender, soft Results Lab Laboratory Tests 11/29/18 17:17 11/30/18 03:17 Assessment/Plan Assessment/Plan Severe sepsis with pneumonia -Severe sepsis protocol -IVF -Vanco, Zosyn -Gore cultures pending -MRSA swab JOY PAZ DO Nov 30, 2018 07:14
[2018-11-30] MEDS ORDERED: SODIUM PHOSPHATE INJ 30 MM in NS (IVPB) 250 ML IV ONE (07:30)
--- NOTE | 2018-11-30 08:39 | Diagnostic Imaging Report ---
INDICATION: Sepsis and pneumonia. TIME OF EXAM: 05:46 a.m. Correlation is made with prior study one day earlier. Heart size is stable. There has been some slight improved aeration to left base since yesterday. Only minimal residual infiltrate or atelectasis remains. Right lung is fairly clear. There is no effusion or pneumothorax. IMPRESSION: Improved aeration at left base when compared to exam one day earlier. Dictated by: Dictated on workstation # [id number]
[2018-11-30] MEDS ORDERED: TERB15CR6 TP (09:23)
--- NOTE | 2018-11-30 09:24 | History & Physical-Hospitalist ---
History of Present Illness HPI/Chief Complaint Pt is a 63yoCM with a PMH of HTN and COPD who presented to the ER from [facility] due to 1 month history of cough and shortness of breath. He is a rambling historian. He states he came here because of coughing (he described this by acting out coughing). When I asked him how long he had been coughing he said he hasn't been coughing. He also states that he hasn't had his inhalers either but denies any history of COPD or Asthma for their use. He is unsure if he had a fever. He also thinks he may have had abdominal pain but that he had a BM and it resolved. He is otherwise unable to tell me most details of his current illness. In the ER he was found to have a LLL pneumonia and meet severe sepsis criteria so was admitted for further management. Exam Limitations: no limitations Date Seen 11/30/18 Time Seen by a Provider: 09:16 Attending Physician Jcarlos Dong MD PCP No,Local Physician Referring Physician Date of Admission Nov 29, 2018 at 18:26 Home Medications & Allergies Home Medications Reviewed patient Home Medication Reconciliation performed by pharmacy medication reconciliations investment recovery technician and/or nursing. Patients Allergies have been reviewed. Allergies Allergies Coded Allergies Sulfa (Sulfonamide Antibiotics) (Verified Allergy, Unknown, 11/14/15) PT STATES "I JUST CAN'T HAVE IT" Past Plmyhbp-Gxanbt-Oahxdh Hx Past Med/Social Hx: Reviewed Nursing Past Med/Soc Hx Patient Social History Alcohol Use: Occasionally Uses Recreational Drug Use: No Smoking Status: Former Smoker Former Smoker, Quit: Feb 25, 2017 Type Used: Cigarettes Recent Foreign Travel: No Contact w/other who traveled: No Recent Hopitalizations: No Recent Infectious Disease Expo: No Immunizations Up To Date Tetanus Booster (TDap): Unknown Date of Pneumonia Vaccine: Nov 16, 2012 Date of Influenza Vaccine: Oct 14, 2016 Seasonal Allergies Seasonal Allergies: No Past Medical History Surgeries: Appendectomy, Gallbladder Currently Using CPAP: No Currently Using BIPAP: No Cardiac: Hypertension Reproductive: No Gastrointestinal: Hepatitis Musculoskeletal: Arthritis, Chronic Back Pain History of Blood Disorders: No Adverse Reaction to Blood Weber: No Family History Reviewed Nursing Family Hx Patient reports no known family medical history. Hypertension Review of Systems Constitutional: see HPI EENTM: no symptoms reported Respiratory: cough, short of breath Cardiovascular: no symptoms reported Gastrointestinal: no symptoms reported, abdominal pain Genitourinary: no symptoms reported Musculoskeletal: no symptoms reported Skin: no symptoms reported Psychiatric/Neurological: No Symptoms Reported Physical Exam Physical Exam Vital Signs Vital Signs - First Documented 11/29/18 11/29/18 11/29/18 11/29/18 16:59 18:09 20:39 23:32 Temp 102.8 Pulse 155 Resp 22 B/P (MAP) 100/66 Pulse Ox 93 O2 Delivery Room Air FiO2 2 Capillary Refill : Less Than 3 Seconds Height, Weight, BMI Height: 5'11.00" Weight: 210lbs. 0.0oz. 95.870650xj; 29.6 BMI Method:Stated General Appearance: No Apparent Distress, Chronically ill, Other (disheveled) Eyes: Right Eye Normal Inspection, Right Eye PERRL HEENT: PERRL/EOMI, Normal ENT Inspection, Pharynx Normal, Moist Mucous Membranes; No Scleral Icterus (L), No Scleral Icterus (R) Neck: Full Range of Motion, Normal Inspection Respiratory: No Accessory Muscle Use, No Respiratory Distress, Rhonci Cardiovascular: Regular Rate, Rhythm, No JVD, No Murmur, Normal Peripheral Pulses Gastrointestinal: Normal Bowel Sounds, No Pulsatile Mass, Non Tender, Soft Extremity: Normal Capillary Refill, Normal Inspection, Non Tender, No Calf Tenderness, No Pedal Edema Neurologic/Psychiatric: Alert, Oriented x3; No Facial Droop Skin: Normal Color, Warm/Dry Lymphatic: No Adenopathy Results Results/Procedures Labs Laboratory Tests 12/01/18 03:18 12/02/18 05:29 Patient resulted labs reviewed. Imaging: Reviewed Imaging Report Assessment/Plan Admission Diagnosis Septic Shock Admission Status: Inpatient Order (span 2 midnights) Reason for Inpatient Admission: IV abx, ICU level care, will take more than 2 midnights to stabilize for DC Diagnosis/Problems Diagnosis/Problems (1) Septic shock Assessment & Plan: Febrile with tachycardia and lactic acidosis on arrival LLL PNA on CXR Met severe sepsis criteria on arrival but progressed to septic shock Continue IVF Continue Vanc and Zosyn as higher risk for MDRO given current incarceration and possible COPD Await cultures (2) Left lower lobe pneumonia Status: Acute Assessment & Plan: Abx as above Pulm consulted, appreciate recs Qualifiers: Pneumonia type: due to unspecified organism Qualified Codes: J18.1 - Lobar pneumonia, unspecified organism Clinical Quality Measures DVT/VTE Risk/Contraindication: Risk Factor Score Per Nursin RFS Level Per Nursing on Admit: 4+=Very High JCARLOS DONG MD Nov 30, 2018 09:24
[2018-11-30] MEDS ORDERED: FLUT12AE6 IH (09:26)
[2018-11-30] MEDS: PIPERACILLIN/TAZO 4.5 GM/NS 100 ML IV SCH ×4 (09:30→16:54)
[2018-11-30] MEDS: ENOXAPARIN 40 MG/0.4 ML (LOVENOX) SYR SC SCH (09:50)
[2018-11-30] MEDS: VANCOMYCIN 1500 MG/NS 500 ML IVPB IV SCH ×4 (09:55→22:07)
--- NOTE | 2018-11-30 10:54 | NUR ---
HAD ED SEND A COPY OF THE MAR FROM THE [facility]. I CALLED AND SPOKE WITH A MANAGER TECHNICAL SERVICES AT THE [facility]. SHE VERIFIED THE AMITRIPTYLINE HAS BEEN DISCONTINUED. SHE MENTIONED AN ADVAIR INHALER [facility] BUT SHE DID NOT HAVE IT THERE TO VERIFY THE DOSE AND IT IS NOT ON THE MAR. I CALLED [facility] AND THEY HAVE NOT FILLED ADVAIR SINCE 07-24-18 AND AT THAT TIME IT WAS THE . I LEFT A MESSAGE WITH [facility] OFFICE TO CLARIFY BUT HAVE NOT HEARD BACK AT THIS TIME. I DID NOT INCLUDE IT ON THE MED REC AT THIS TIME SINCE IT IS NOT ON THE MAR AND IS PAST DUE FOR REFILL. Addendum: 11/30/18 at 1614 by BAMBI GARAY [facility] OFFICE CALLED BACK AT THIS TIME AND REPORTS THE PATIENT SHOULD BE TAKING ADVAIR 250-50 BID. THEY PROVIDE THIS MEDICATION AT TIMES. I ADDED IT TO THE MED REC AT THIS TIME DESPITE THE FACT THAT IT WAS NOT ON THE MAR FROM THE [facility] SINCE THE PROVIDER STATES THE PATIENT SHOULD BE TAKING IT.
--- NOTE | 2018-11-30 11:30 | Diagnostic Imaging Report ---
Indication: Pneumonia. Correlation is made with the chest radiograph from earlier the same day. Patient was administered 40.9 mCi aerosolized technetium DTPA and imaging over the chest was performed. Patient was administered 5.3 mCi technetium 99m MAA intravenously and imaging over the chest was performed. There is homogeneous ventilation of both lungs. No ventilation defects are seen. Perfusion study does show homogeneous perfusion of both lungs. No pleural-based perfusion defects are seen. Impression: Normal ventilation and perfusion lung scan. Dictated by: Dictated on workstation # [id number]
[2018-11-30] MEDS ORDERED: FLUT1DIS26 IH (16:11)
[2018-12-01] VITALS: BP 118/87
[2018-12-01] MEDS: PIPERACILLIN/TAZO 4.5 GM/NS 100 ML IV SCH ×6 (01:37→16:33)
[2018-12-01] MEDS: RT-ALBUTEROL/IPRATROPIUM 3 ML (DUONEB) VIAL INH SCH ×6 (02:31→23:13)
[2018-12-01 03:26] LABS: BASOPHILS % (AUTO) 0 % (0-10); EOSINOPHILS % (AUTO) 0 % (0-10); HEMATOCRIT 32 % (40-54); LYMPHOCYTES # (AUTO) 1.6 X 10^3 (1.0-4.0); LYMPHOCYTES % (AUTO) 13 % (12-44); MEAN CORPUSCULAR HEMOGLOBIN 31 PG (25-34); MEAN CORPUSCULAR HGB CONC 35 G/DL (32-36); MEAN CORPUSCULAR VOLUME 88 FL (80-99); MEAN PLATELET VOLUME 10.5 FL (7.4-10.4); MONOCYTES # (AUTO) 1.4 X 10^3 (0.0-1.0); MONOCYTES % (AUTO) 12 % (0-12); NEUTROPHILS # (AUTO) 9.3 X 10^3 (1.8-7.8); NEUTROPHILS % (AUTO) 75 % (42-75); PLATELET COUNT 176 10^3/uL (130-400); RED CELL DISTRIBUTION WIDTH 14.1 % (10.0-14.5); WHITE BLOOD COUNT 12.3 10^3/uL (4.3-11.0)
[2018-12-01 03:47] LABS: CARBON DIOXIDE 20 MMOL/L (21-32); CHLORIDE 110 MMOL/L (98-107); CREATININE SERUM 1.06 MG/DL (0.60-1.30); POTASSIUM 3.8 MMOL/L (3.6-5.0); SODIUM 137 MMOL/L (135-145)
[2018-12-01 03:48] LABS: BUN/CREATININE RATIO 17; CALCIUM 8.6 MG/DL (8.5-10.1); GFR ESTIMATED > 60; GLUCOSE 109 MG/DL (70-105); MAGNESIUM 1.9 MG/DL (1.8-2.4); PHOSPHORUS 2.6 MG/DL (2.3-4.7)
[2018-12-01] MEDS: LACTATED RINGERS 1,000 ML IV SCH (04:00)
[2018-12-01 04:53] VITALS: BP 120/83
[2018-12-01] MEDS: CATHETER FLUSH 10 ML SYR IV SCH ×3 (04:56→20:27)
--- NOTE | 2018-12-01 07:26 | Diagnostic Imaging Report ---
Indication: Dyspnea, sepsis. Comparison: 11/30/2018. Discussion: Single portable upright view of the chest was obtained. Worsening consolidation is noted within the right lung base, likely pneumonia. Stable normal heart size. No pleural fluid or pneumothorax. No osseous abnormality. Impression: 1. Development of significant consolidation within the right lung base. Dictated by: Dictated on workstation # [id number]
--- NOTE | 2018-12-01 07:41 | Pulmonary Progress Note ---
Sepsis Event Evaluation Height, Weight, BMI Height: 5'11.00" Weight: 207lbs. 3.0oz. 93.280155nz; 29.6 BMI Method:Stated Focused Exam Lactate Level 11/29/18 19:47: Lactic Acid Level 2.31*H 11/30/18 03:10: Lactic Acid Level 4.59*H 11/30/18 05:10: Lactic Acid Level 2.61*H Exam Exam Vital Signs Date Time Temp Pulse Resp B/P (MAP) Pulse Ox O2 Delivery O2 Flow Rate FiO2 12/01/18 04:53 98.8 89 18 120/83 (95) 92 Nasal Cannula 1.00 12/01/18 02:31 91 Nasal Cannula 1.00 12/01/18 00:00 103 18 118/87 (97) 91 Nasal Cannula 1.00 12/01/18 00:00 100 Nasal Cannula 2.00 11/30/18 23:03 98.5 Nasal Cannula 1.00 11/30/18 22:58 90 Nasal Cannula 1.00 11/30/18 20:36 99.5 100 16 113/79 (90) 100 Nasal Cannula 2.00 11/30/18 20:00 100 Nasal Cannula 2.00 11/30/18 18:59 90 Room Air 11/30/18 16:00 Nasal Cannula 4.00 11/30/18 16:00 100 14 132/99 (110) Nasal Cannula 2.00 11/30/18 14:30 95 Room Air 11/30/18 12:00 Nasal Cannula 4.00 11/30/18 11:30 97 Room Air 11/30/18 10:00 97.7 11/30/18 09:00 100 34 146/99 (115) Nasal Cannula 2.00 11/30/18 08:00 Nasal Cannula 4.00 11/30/18 07:50 97 Room Air I & O 12/01/18 07:00 Intake Total 1640 ml Output Total 2870 ml Balance -1230 ml Height & Weight Height: 5'11.00" Weight: 207lbs. 3.0oz. 93.460637hi; 29.6 BMI Method:Stated General Appearance: No Apparent Distress, Chronically ill, Other HEENT: PERRL/EOMI, Normal ENT Inspection, Pharynx Normal, Moist Mucous Membranes Neck: Full Range of Motion, Normal Inspection Respiratory: No Accessory Muscle Use, No Respiratory Distress, Rhonci Cardiovascular: Regular Rate, Rhythm, No JVD, No Murmur, Normal Peripheral Pulses Capillary Refill: Less Than 3 Seconds Gastrointestinal: normal bowel sounds, non tender, soft Extremity: Normal Capillary Refill, Normal Inspection, Non Tender, No Calf Tenderness, No Pedal Edema Neurologic/Psychiatric: Alert, Oriented x3 Skin: Normal Color, Warm/Dry Lymphatic: No Adenopathy Results Lab Laboratory Tests 11/29/18 17:17 11/30/18 03:17 12/01/18 03:18 Assessment/Plan Assessment/Plan Severe sepsis with pneumonia -Severe sepsis protocol -IVF -Vanco, Zosyn -Gore cultures pending -MRSA swab small bilateral pleural effusions -Repeat BNP -Monitor metabolic lactic acidosis -IVF continue at 150cc/hr -Monitor JOY PAZ DO Dec 01, 2018 07:40
[2018-12-01 08:00] VITALS: BP 140/97
--- NOTE | 2018-12-01 08:19 | Progress Note-Hospitalist ---
Subjective HPI/CC On Admission Date Seen by Provider: Dec 01, 2018 Time Seen by Provider: 08:13 Pt is a 63yoCM with a PMH of HTN and COPD who presented to the ER from [facility] due to 1 month history of cough and shortness of breath. He is a rambling historian. He states he came here because of coughing (he described this by acting out coughing). When I asked him how long he had been coughing he said he hasn't been coughing. He also states that he hasn't had his inhalers either but denies any history of COPD or Asthma for their use. He is unsure if he had a fever. He also thinks he may have had abdominal pain but that he had a BM and it resolved. He is otherwise unable to tell me most details of his current illness. In the ER he was found to have a LLL pneumonia and meet severe sepsis criteria so was admitted for further management. Subjective/Events-last exam Pt reports back pain but otherwise no complaints. Discussed blood cultures results and need to await ID and sensitivities. Focused Exam Lactate Level 11/30/18 03:10: Lactic Acid Level 4.59*H 11/30/18 05:10: Lactic Acid Level 2.61*H 12/01/18 08:00: Lactic Acid Level 0.86 Lactic Acid Level Objective Exam Vital Signs Vital Signs Date Time Temp Pulse Resp B/P (MAP) Pulse Ox O2 Delivery O2 Flow Rate FiO2 12/02/18 10:40 91 Room Air 12/02/18 08:00 96.9 86 18 111/70 (84) 12/01/18 08:00 1.00 11/29/18 23:32 2 Capillary Refill : Less Than 3 Seconds General Appearance: No Apparent Distress, Chronically ill, Other Respiratory: Lungs Clear, No Accessory Muscle Use, No Respiratory Distress Cardiovascular: Regular Rate, Rhythm, No JVD, No Murmur, Normal Peripheral Pulses Gastrointestinal: Normal Bowel Sounds, No Pulsatile Mass, Non Tender, Soft Extremity: No Calf Tenderness Neurologic/Psychiatric: Alert, Oriented x3 Results/Procedures Lab Laboratory Tests 12/02/18 05:29 Patient resulted labs reviewed. Imaging: Reviewed Imaging Report Assessment/Plan Assessment and Plan Assess & Plan/Chief Complaint Septic Shock Diagnosis/Problems Diagnosis/Problems (1) Septic shock Assessment & Plan: Shock resolved LLL PNA on CXR Continue Vanc and Zosyn as higher risk for MDRO given current incarceration and possible COPD Blood cultures growing coag neg staph- await sensitivities to see if all same species or contaminant May need MAGDALENE (2) Left lower lobe pneumonia Status: Acute Assessment & Plan: Abx as above Pulm consulted, appreciate recs Qualifiers: Pneumonia type: due to unspecified organism Qualified Codes: J18.1 - Lobar pneumonia, unspecified organism (3) D-dimer, elevated Assessment & Plan: Normal VQ scan (4) AMY (acute kidney injury) Status: Resolved Assessment & Plan: Creatinine back to baseline Resolution Date/Time: 12/01/18 @ 08:19 Clinical Quality Measures DVT/VTE Risk/Contraindication: Risk Factor Score Per Nursin RFS Level Per Nursing on Admit: 4+=Very High JCARLOS KATE MD Dec 01, 2018 08:19
[2018-12-01] MEDS: VANCOMYCIN 1500 MG/NS 500 ML IVPB IV SCH ×4 (09:30→20:24)
[2018-12-01] MEDS: HYDROcodone/APAP 5 MG/325 MG (LORTAB) TAB PO PRN ×2 (09:41→20:26)
--- NOTE | 2018-12-01 12:55 | NUR ---
RECEIVED REPORT FROM FERNANDO NOVOA, PATIENT RECEIVED FROM ICU, CALL LIGHT WITHIN REACH, DENIES PAIN OR SOB, SALINE LOCK WITHOUT REDNESS OR SWELLING.
[2018-12-01 13:03] VITALS: BP 122/81
[2018-12-01] MEDS: ENOXAPARIN 40 MG/0.4 ML (LOVENOX) SYR SC SCH (14:31)
[2018-12-01 16:25] VITALS: BP 131/83
[2018-12-01 20:00] VITALS: BP 132/84
[2018-12-01] MEDS: DOXEPIN 25 MG (SINEquan) CAP PO SCH (20:24)
[2018-12-01] MEDS: RT-ADVAIR HFA 115/21 MCG PER PUFF IH SCH (23:13)
[2018-12-02] VITALS: BP 102/72
[2018-12-02] MEDS: HYDROcodone/APAP 5 MG/325 MG (LORTAB) TAB PO PRN ×4 (01:00→20:27)
[2018-12-02] MEDS: PIPERACILLIN/TAZO 4.5 GM/NS 100 ML IV SCH ×4 (01:01→09:14)
[2018-12-02 04:00] VITALS: BP 114/74
[2018-12-02 05:44] LABS: BASOPHILS % (AUTO) 0 % (0-10); EOSINOPHILS # (AUTO) 0.2 10^3/uL (0.0-0.3); EOSINOPHILS % (AUTO) 3 % (0-10); HEMATOCRIT 39 % (40-54); HEMOGLOBIN 13.4 G/DL (13.3-17.7); LYMPHOCYTES # (AUTO) 2.2 X 10^3 (1.0-4.0); LYMPHOCYTES % (AUTO) 30 % (12-44); MEAN CORPUSCULAR HEMOGLOBIN 30 PG (25-34); MEAN CORPUSCULAR HGB CONC 34 G/DL (32-36); MEAN CORPUSCULAR VOLUME 88 FL (80-99); MEAN PLATELET VOLUME 10.7 FL (7.4-10.4); MONOCYTES # (AUTO) 0.7 X 10^3 (0.0-1.0); MONOCYTES % (AUTO) 9 % (0-12); NEUTROPHILS # (AUTO) 4.2 X 10^3 (1.8-7.8); NEUTROPHILS % (AUTO) 58 % (42-75); PLATELET COUNT 196 10^3/uL (130-400); RED CELL DISTRIBUTION WIDTH 14.1 % (10.0-14.5); WHITE BLOOD COUNT 7.4 10^3/uL (4.3-11.0)
[2018-12-02 06:06] LABS: BUN/CREATININE RATIO 16; CARBON DIOXIDE 20 MMOL/L (21-32); CHLORIDE 104 MMOL/L (98-107); CREATININE SERUM 1.21 MG/DL (0.60-1.30); GFR ESTIMATED > 60; GLUCOSE 120 MG/DL (70-105); MAGNESIUM 1.7 MG/DL (1.8-2.4); PHOSPHORUS 5.1 MG/DL (2.3-4.7); POTASSIUM 4.3 MMOL/L (3.6-5.0); SODIUM 133 MMOL/L (135-145)
[2018-12-02] MEDS: CATHETER FLUSH 10 ML SYR IV SCH ×3 (06:06→22:05)
[2018-12-02 08:00] VITALS: BP 111/70
[2018-12-02] MEDS: RT-ADVAIR HFA 115/21 MCG PER PUFF IH SCH ×2 (08:34→19:06)
[2018-12-02] MEDS: RT-ALBUTEROL/IPRATROPIUM 3 ML (DUONEB) VIAL INH SCH ×5 (08:34→22:22)
[2018-12-02] MEDS: VANCOMYCIN 1500 MG/NS 500 ML IVPB IV SCH ×4 (09:14→20:25)
[2018-12-02] MEDS: ENOXAPARIN 40 MG/0.4 ML (LOVENOX) SYR SC SCH (09:14)
[2018-12-02] MEDS: MAGNESIUM 1 GM/100 ML IVPB 100 ML IV SCH ×2 (11:26→12:38)
[2018-12-02] MEDS: LACTOBACILLUS ACIDOPHILUS (PROBIOTIC) CAPSULE PO SCH ×2 (11:31→17:22)
[2018-12-02 12:00] VITALS: BP 121/84
--- NOTE | 2018-12-02 13:06 | Progress Note-Hospitalist ---
Subjective HPI/CC On Admission Date Seen by Provider: Dec 02, 2018 Time Seen by Provider: 13:06 Pt is a 63yoCM with a PMH of HTN and COPD who presented to the ER from [facility] due to 1 month history of cough and shortness of breath. He is a rambling historian. He states he came here because of coughing (he described this by acting out coughing). When I asked him how long he had been coughing he said he hasn't been coughing. He also states that he hasn't had his inhalers either but denies any history of COPD or Asthma for their use. He is unsure if he had a fever. He also thinks he may have had abdominal pain but that he had a BM and it resolved. He is otherwise unable to tell me most details of his current illness. In the ER he was found to have a LLL pneumonia and meet severe sepsis criteria so was admitted for further management. Subjective/Events-last exam Pt denies any complaints. States still SOB at times. Discussed need for breathing treatments. He states he doesn't like they way they taste so he has been refusing them. Discussed risks of noncompliance and that if helping him breath he needs to consider the benefit of that over the taste of the medication. Focused Exam Lactate Level 11/30/18 03:10: Lactic Acid Level 4.59*H 11/30/18 05:10: Lactic Acid Level 2.61*H 12/01/18 08:00: Lactic Acid Level 0.86 Objective Exam Vital Signs Vital Signs Date Time Temp Pulse Resp B/P (MAP) Pulse Ox O2 Delivery O2 Flow Rate FiO2 12/02/18 10:40 91 Room Air 12/02/18 08:00 96.9 86 18 111/70 (84) 12/01/18 08:00 1.00 11/29/18 23:32 2 Capillary Refill : Less Than 3 Seconds General Appearance: No Apparent Distress, Chronically ill, Other HEENT: No Scleral Icterus (L), No Scleral Icterus (R) Neck: Normal Inspection Respiratory: No Accessory Muscle Use, No Respiratory Distress, Rhonci Cardiovascular: Regular Rate, Rhythm, No JVD, No Murmur Gastrointestinal: Normal Bowel Sounds, No Pulsatile Mass, Non Tender, Soft Extremity: No Calf Tenderness Neurologic/Psychiatric: Alert, Oriented x3 Lymphatic: No Adenopathy Results/Procedures Lab Laboratory Tests 12/02/18 05:29 Patient resulted labs reviewed. Imaging: Reviewed Imaging Report Assessment/Plan Assessment and Plan Assess & Plan/Chief Complaint Septic Shock Diagnosis/Problems Diagnosis/Problems (1) Septic shock Assessment & Plan: Shock resolved LLL PNA on CXR Continue Vanc as higher risk for MDRO given current incarceration and possible COPD Blood cultures growing coag neg staph- await sensitivities to see if all same species or contaminant May need MAGDALENE (2) Left lower lobe pneumonia Status: Acute Assessment & Plan: Abx as above Pulm consulted, appreciate recs Qualifiers: Pneumonia type: due to unspecified organism Qualified Codes: J18.1 - Lobar pneumonia, unspecified organism (3) AMY (acute kidney injury) Status: Resolved Assessment & Plan: Creatinine back to baseline Resolution Date/Time: 12/01/18 @ 08:19 (4) D-dimer, elevated Assessment & Plan: Normal VQ scan Clinical Quality Measures DVT/VTE Risk/Contraindication: Risk Factor Score Per Nursin RFS Level Per Nursing on Admit: 4+=Very High JCARLOS KATE MD Dec 02, 2018 13:06
--- NOTE | 2018-12-02 14:42 | Pulmonary Progress Note ---
Sepsis Event Evaluation Height, Weight, BMI Height: 5'11.00" Weight: 207lbs. 3.0oz. 93.715814td; 29.6 BMI Method:Stated Focused Exam Lactate Level 11/30/18 03:10: Lactic Acid Level 4.59*H 11/30/18 05:10: Lactic Acid Level 2.61*H 12/01/18 08:00: Lactic Acid Level 0.86 Exam Exam Vital Signs Date Time Temp Pulse Resp B/P (MAP) Pulse Ox O2 Delivery O2 Flow Rate FiO2 12/02/18 10:40 91 Room Air 12/02/18 08:36 Room Air 12/02/18 08:00 96.9 86 18 111/70 (84) 92 Room Air 12/02/18 08:00 96 Room Air 12/02/18 04:00 98.9 79 18 114/74 (87) 94 Room Air 12/02/18 00:00 99.1 93 18 102/72 (82) 96 Room Air 12/01/18 20:00 99.0 96 20 132/84 (100) 96 Room Air 12/01/18 20:00 Room Air 12/01/18 16:25 98.2 85 24 131/83 (99) 95 Room Air I & O 12/02/18 07:00 Intake Total 1160 ml Output Total 2850 ml Balance -1690 ml Height & Weight Height: 5'11.00" Weight: 207lbs. 3.0oz. 93.474007cl; 29.6 BMI Method:Stated General Appearance: No Apparent Distress, Chronically ill, Other HEENT: No Scleral Icterus (L), No Scleral Icterus (R) Neck: Normal Inspection Respiratory: No Accessory Muscle Use, No Respiratory Distress, Rhonci Cardiovascular: Regular Rate, Rhythm, No JVD, No Murmur Capillary Refill: Less Than 3 Seconds Gastrointestinal: normal bowel sounds, non tender, soft Extremity: No Calf Tenderness Neurologic/Psychiatric: Alert, Oriented x3 Lymphatic: No Adenopathy Results Lab Laboratory Tests 12/01/18 03:18 12/02/18 05:29 Assessment/Plan Assessment/Plan Severe sepsis with pneumonia -Severe sepsis protocol -IVF -[place] -Gore cultures pending -MRSA swab small bilateral pleural effusions -Repeat BNP -Monitor metabolic lactic acidosis -IVF continue at 150cc/hr -Monitor JOY PAZ DO Dec 02, 2018 14:42
[2018-12-02 16:00] VITALS: BP 109/77
[2018-12-02 20:00] VITALS: BP 130/79
[2018-12-02] MEDS: DOXEPIN 25 MG (SINEquan) CAP PO SCH (20:25)
[2018-12-03] VITALS: BP 96/64
[2018-12-03] MEDS: RT-ALBUTEROL/IPRATROPIUM 3 ML (DUONEB) VIAL INH SCH ×2 (02:28→08:45)
[2018-12-03] MEDS: LACTOBACILLUS ACIDOPHILUS (PROBIOTIC) CAPSULE PO SCH ×2 (05:14→14:08)
[2018-12-03] MEDS: CATHETER FLUSH 10 ML SYR IV SCH ×2 (05:15→14:08)
[2018-12-03 05:50] LABS: BASOPHILS % (AUTO) 0 % (0-10); EOSINOPHILS # (AUTO) 0.1 10^3/uL (0.0-0.3); EOSINOPHILS % (AUTO) 2 % (0-10); HEMATOCRIT 41 % (40-54); LYMPHOCYTES # (AUTO) 1.8 X 10^3 (1.0-4.0); LYMPHOCYTES % (AUTO) 28 % (12-44); MEAN CORPUSCULAR HEMOGLOBIN 30 PG (25-34); MEAN CORPUSCULAR HGB CONC 34 G/DL (32-36); MEAN CORPUSCULAR VOLUME 88 FL (80-99); MEAN PLATELET VOLUME 10.2 FL (7.4-10.4); MONOCYTES # (AUTO) 0.7 X 10^3 (0.0-1.0); MONOCYTES % (AUTO) 11 % (0-12); NEUTROPHILS # (AUTO) 3.9 X 10^3 (1.8-7.8); NEUTROPHILS % (AUTO) 59 % (42-75); PLATELET COUNT 261 10^3/uL (130-400); WHITE BLOOD COUNT 6.6 10^3/uL (4.3-11.0)
[2018-12-03 06:09] LABS: BUN/CREATININE RATIO 22; CALCIUM 9.2 MG/DL (8.5-10.1); CARBON DIOXIDE 21 MMOL/L (21-32); CHLORIDE 102 MMOL/L (98-107); CREATININE SERUM 1.08 MG/DL (0.60-1.30); GFR ESTIMATED > 60; GLUCOSE 116 MG/DL (70-105); MAGNESIUM 2.2 MG/DL (1.8-2.4); PHOSPHORUS 4.9 MG/DL (2.3-4.7); SODIUM 135 MMOL/L (135-145)
[2018-12-03 08:00] VITALS: BP 101/62
[2018-12-03] MEDS: RT-ADVAIR HFA 115/21 MCG PER PUFF IH SCH (08:45)
[2018-12-03] MEDS: ENOXAPARIN 40 MG/0.4 ML (LOVENOX) SYR SC SCH (08:47)
--- NOTE | 2018-12-03 14:08 | NUR ---
PT STANDING AT DOOR. ANGRY AND RUDE. REQUESTING DISCHARGE. DR. WOODWARD NOTIFIED. STATES HE WILL SEE PT SHORTLY. OFFERED AMA PAPER, BUT EDUCATED THAT HE MAY NEED ABX AND SHOULD WAIT TO SEE DR. PT AGREEABLE TO WAIT AT THIS TIME. MAKING INAPPROPRIATE SEXUAL COMMENTS ABOUT STAFF.
--- NOTE | 2018-12-03 14:38 | Progress Note-Hospitalist ---
Progress Note Progress Notes/Assess & Plan Date Seen 12/03/18 Time Seen by Provider: 14:36 Assessment & Plan The patient is a 63-year-old white male who was brought here from the custodial with a fever and shortness of breath. Exam in the emergency room showed sepsis and a left lower lobe pneumonia. He has grown 2 unusual species of staff from the sputum. These are widely sensitive. He was released from the custodial obligation on admission here. He reports feeling much better at this time. Physical exam: Color is good. Lungs show distant breath sounds but are clear. CV is regular without murmur. Abdomen is soft. Extremities show no pedal edema. Impression: Left lower lobe pneumonia. Plan: Discharge. See discharge sequence for medications and routines Focused Exam Lactate Level 12/01/18 08:00: Lactic Acid Level 0.86 ANNA WOODWARD MD Dec 03, 2018 14:38
[2018-12-03] MEDS ORDERED: CEFD300C3 PO (14:41)
--- NOTE | 2018-12-03 15:29 | Discharge Inst-Simple/Standard ---
Discharge Inst-Standard Patient Instructions/Follow Up Plan of Care/Instructions/FU: Medications as listed on the discharge summary. Complete the Omnicef for your pneumonia. Activity as Tolerated: Yes Discharge Diet: No Restrictions ANNA WOODWARD MD Dec 03, 2018 15:29
--- NOTE | 2018-12-03 15:39 | NUR ---
DC'D AMBULATORY WITH NAZIA RN. REFUSED TO HAVE RX AND INST REVIEWED AND REFUSED TO SIGN DISCHARGE INSTRUCTIONS REC'D.
--- NOTE | 2018-12-03 15:42 | NUR ---
DR. PAZ JUST PUT ORDERS IN FOR F/U APPT. NOTIFIED THAT PT HAD ALREADY LEFT.
== END 2018-12-03 15:39 | disposition home or self-care (01) | DRG 871 ==
LOC: EDUNIT# 16:54 → ER 16:55 → UNDOADMIN 18:26 → ICU 18:26 → 4TH 12-01 12:49
PROVIDERS: ADMIT Family Medicine; ATTEND Family Medicine
DX: A41.9 Sepsis, unspecified organism (principal); R65.21 Severe sepsis with septic shock; J18.1 Lobar pneumonia, unspecified organism; L97.929 Non-pressure chronic ulcer of unspecified part of left lower leg with unspecified severity; M54.5 Low back pain; J44.9 Chronic obstructive pulmonary disease, unspecified; Z87.891 Personal history of nicotine dependence; I10 Essential (primary) hypertension; K75.9 Inflammatory liver disease, unspecified; M19.91 Primary osteoarthritis, unspecified site; E87.2 Acidosis; J90 Pleural effusion, not elsewhere classified
CPT/HCPCS: 36415; 71045; 71046; 78582; 80048; 80053; 81000; 83605; 83735; 83880; 84100; 85007; 85025; 85027; 85379; 87040; 87077; 87081; 87088; 87186; 87804; 94640; 94760; 96361; 96365; 96375